=== PATIENT | male | born 1935 | race Caucasian/White ===

== ENCOUNTER → 2016-05-25 | Outpatient (CLI) | payer MEDICARE ==
[~2016-05-25] MED LIST: ASPI-241 PO; ATOR80TA2 PO; FLAX SEED; GREE1CAP PO; HYDR1TAB PO; MTP25TSR PO; OMEG-59 PO; OMEP-10 PO; SERT50TA PO; [UNRECOGNIZED DRUG - OTHER]; vit d3 PO
--- OUTSIDE RECORDS SUMMARY | 2016-05-25 08:36 | XMS REPORT | Continuity of Care Document ---
Author Author [facility] Organization [facility] Address Unknown Phone Unavailable Care Team Providers Care Customer Equipment Engineer Name Role Phone Vinnie Montano III PCP [phone] Source Comments Some departments are not documenting in the electronic medical record. If you do not see the information that you expected, contact Release of Information in the Health Information Management department at [phone] for further assistance in locating additional records.[facility] Active Allergies and Adverse Reactions No Known Allergies Current Medications Prescription Sig. Disp. Refills Start End Date Status Date metoprolol XL (TOPROL XL) Take 50 mg by mouth Active 50 mg tablet daily. omeprazole DR(+) Take 20 mg by mouth Active (PRILOSEC) 20 mg capsule daily. atorvastatin (LIPITOR) 40 Take 40 mg by mouth Active mg tablet daily. aspirin 81 mg chewable Take 81 mg by mouth Active tablet daily. losartan (COZAAR) 50 mg Take 50 mg by mouth Active tablet daily. omega 9-mol-wvv-fish oil Take 2 Caps by mouth Active 300-1,000 mg capsule daily. GREEN TEA LEAF EXTRACT Take by mouth. Active (CARDIO TEA PO) HYLAN G-F 20 (SYNVISC IX) by Intra-articular route. Active Every 6 months FEXOFENADINE HCL (TOÑO Take 60 mg by mouth as Active PO) Needed. escitalopram oxalate Take 10 mg by mouth Active (LEXAPRO) 10 mg tablet daily. cholecalciferol (VITAMIN Take 2,000 Units by mouth Active D-3) 1,000 units tablet daily. ALPRAZolam (XANAX) 0.5 mg Take 0.5 mg by mouth at Active tablet bedtime as needed. donepezil (ARICEPT) 5 mg Take 1 Tab by mouth 90 Tab 3 03/30/19 Active tablet daily. 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 After the last visit he decided to start the donepezil 5 mg. He has done well without GI side effects but does not feel it is "helping" his memory. We discussed the goal in using this medication. I am reluctant to increase it at this time due to pulse rate today of 52. I encouraged him to discuss increasing it with Cardiology when they see him next month. He also had a poor reaction to the increase in the previous Exelon Patch. Will keep the donepezil at 5 mg for now. He was encouraged to keep active physically and mentally and follow closely with his Psychiatrist for management of depression. Plan: Recommend you exercise more frequently. Check with Cardiology or PCP for a recommended exercise program. Stay active mentally, physically, socially. Follow with Psychiatry for aggressive treatment of depression. Continue the Lexapro as prescribed. Continue to use the donepezil (Aricept) 5 mg daily. Take with food in the AM Check out the NIH or Alzheimer's Prevention Clinic at [facility] and Alzheimer's Association website for additional helpful information. We will have our Research Study Coordinators contact you regarding possible participation in studies. Return to the [facility]: September 15, 2016 1:[address] Mathew. Contact our office for any questions or concerns. 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 Pulse 52 03/30/2016 11:23 AM AIDS SOCIAL WORKER Temperature - - Respiratory Rate - - Height 1.702 m (5' 7") 03/30/2016 11:23 AM AIDS SOCIAL WORKER Weight 83.008 kg (183 lb) 03/30/2016 11:23 AM AIDS SOCIAL WORKER Body Mass Index 28.66 03/30/2016 11:23 AM AIDS SOCIAL WORKER Oxygen Saturation 57% 06/24/2015 1:25 PM CDT Plan of Care Date Type Specialty Providers Description 09/15/2016 Appointment Neurology Jonny Mathew MD [address] [facility] [address] [place] [address] [phone] (Fax) 03/21/2017 Appointment Neurology Suzanna Jacobs APRN-NP [address] [place] [address] [phone] (Fax) Health Maintenance Due Date Last Done Comments Physical (Comprehensive) 1942 Exam Pertussis Vaccine 1945 Tetanus Vaccine 1951 Shingles Vaccine 1994 Prevnar/Pneumovax (#1) 1999 Influenza Vaccine 11/06/2015 Results from Last 3 Months Not on file
--- NOTE | 2016-05-25 15:35 | Diagnostic Imaging Report ---
EXAMINATION: PET-CT TECHNIQUE: Serum glucose level at the time of the study is: 135 mg/dL. 13.2 mCi of FDG was administered intravenously followed by obtaining PET images with corresponding noncontrast CT scan images. The CT scan was performed for anatomic correlation and attenuation correction and was not performed according to the diagnostic protocol of the areas covered. The scan was performed from the head to mid thighs. INDICATION: Solitary pulmonary nodule. FINDINGS: There is symmetric FDG uptake seen in the brain. The neck demonstrates increased FDG uptake near the floor of the mouth and right side of the sublingual region. This area is obscured on the localizer CT scan related to beam hardening artifacts from dental fillings. Correlate clinically. This region is commonly involved with inflammatory process. In the chest: There is no suspicious hypermetabolic lesion seen. The localizer CT demonstrates a lobulated nodule in the anterior aspect of the right lower lobe at the hilum level measuring 1.3 cm. No significant hypermetabolic activity is seen in this nodule. This is in favor of a benign process such as a noncalcified granuloma or hamartoma. Followup CT scan of the chest in 3 months is recommended to ensure stability. There is biliary air in the liver which may relate to prior sphincterotomy or other biliary procedure, correlate with patient's history. There is urinary tract excretion seen with no suspicious hypermetabolic mass noted. IMPRESSION: A 1.3 cm non-hypermetabolic lobulated right lower lobe pulmonary nodule is favored to be benign such as a noncalcified granuloma or hamartoma. Three-month followup CT chest is recommended to observe this lesion. Dictated by: Dictated on workstation # [id number]
== END ==
LOC: RAD 08:32
PROVIDERS: ATTEND Internal Medicine
DX: R91.1 Solitary pulmonary nodule (principal)

== ENCOUNTER 2017-06-21 16:39 | Observation (INO) | payer MEDICARE ==
[~2017-06-21] VITALS: Ht 170.2 cm; Wt 94.0 kg
--- OUTSIDE RECORDS SUMMARY | 2017-06-21 16:43 | XMS REPORT | Encounter Summary ---
Author Author [facility] Organization [facility] Address Unknown Phone Unavailable Care Team Providers Care Stock Trader Name Role Phone Benjie Montano MD Unavailable Pia Macdonald DO Unavailable Benjie Montano MD PCP Jonny Mathew MD Unavailable Reason for Visit * Reason Comments Medication Refill Encounter Details Date Type Department Care Team Description 05/16/2017 Refill [facility] Jonny Mathew MD Physicians - Neurology [address] [facility] [address] [place] [address] [place] [address] Social History Tobacco Use Types Packs/Day Years Used Date Former Smoker Cigarettes, Pipe Smokeless Tobacco: Never Used Alcohol Use Drinks/Week oz/Week Comments Yes 0 Standard 0.0 4-5 oz per week drinks or equivalent Sex Assigned at Date Recorded Not on file as of this encounter Functional Status Functional Status Response Date of Assessment Does the patient have a hearing impairment: No 03/30/2016 Does the patient have a visual impairment: Yes 03/30/2016 Does the patient have impaired ambulation: No 03/30/2016 Does the patient have an activity of daily living No 03/30/2016 (ADL) impairment: Does the patient have an instrumental activity of Yes 03/30/2016 daily living (IADL) impairment: Cognitive Status Response Date of Assessment Does the patient have a cognitive impairment: Yes 03/30/2016 as of this encounter Plan of Treatment Not on fileas of this encounter Visit Diagnoses Not on filein this encounter
--- OUTSIDE RECORDS SUMMARY | 2017-06-21 16:43 | XMS REPORT | Continuity of Care Document ---
Author Author [facility] Organization [facility] Address Unknown Phone Unavailable Care Team Providers Care Lead Atg Developer Name Role Phone [employer] Unavailable Unavailable Problems Medications Allergies, Adverse Reactions, Alerts Immunizations Results Vital Signs Encounters Location Location Details Encounter Type Encounter Number Reason For Visit Attending Provider ADM Date DC Date Status Source OUTPATIENT [id number] ANDER MCCOY 04/28/20152015 Active [facility] Brice [place]WAY Active [facility] Procedures Plan of Care Social History Assessment and Plan Family History Advance Directives Functional Status
--- OUTSIDE RECORDS SUMMARY | 2017-06-21 16:43 | XMS REPORT | Clinical Summary ---
Author Author [facility] Organization [facility] Address Unknown Phone Unavailable Care Team Providers Care Garnett Machine Operator Helper Name Role Phone Benjie Montano MD Unavailable Pia Macdonald DO Unavailable Benjie Montano MD PCP Jonny Mathew MD Unavailable Source Comments Some departments are not documenting in the electronic medical record. If you do not see the information that you expected, contact Release of Information in the Health Information Management department at [phone] for further assistance in locating additional records.[facility] Allergies No Known Allergies Current Medications Prescription Sig. [...] 81 mg by mouth Active tablet daily. HYLAN G-F 20 (SYNVISC IX) by Intra-articular route. Active Every 6 months FEXOFENADINE HCL (TOÑO Take 60 mg by mouth as Active PO) Needed. cholecalciferol (VITAMIN Take 2,000 Units by mouth Active D-3) 1,000 units tablet daily. ALPRAZolam (XANAX) 0.5 mg Take 0.25 mg by mouth at Active tablet bedtime as needed. glimepiride (AMARYL) 1 mg Take 1 mg by mouth daily Active tablet with breakfast. donepezil (ARICEPT) 10 mg TAKE ONE TABLET BY MOUTH 90 tablet 4 Active tablet DAILY 18 Active Problems Problem Noted Date Late onset Alzheimer's disease without behavioral disturbance 05/02/2017 Overview: Syndrome of Cognition: Diagnosis changed at the last visit from [facility]CI to AD. He had the Aricept increased to 10 mg daily and has been tolerating it well. Family feels he is stable at this time. Discussed driving safety and medication management. L ast Assessment & Plan: Stable at this time. Recommended he continue current treatment plan. Stay engaged mentally, physically and socially. Plan: Stay active mentally, physically and socially. Redirect and reassure as needed. Drive to familiar areas only. Recommend a GPS associate biological sales should be installed on phone to help track if needed for navigational issues. Follow up with Dr. Mathew as scheduled in September. Cognitive changes 04/15/2015 Last Assessment & Plan: [...] the NIH or Alzheimer's Prevention Clinic at [facility] and Alzheimer's Association website for additional helpful information. We will have our Research Study Coordinators contact you regarding possible participation in studies. Return to the [facility] Care Clinic: September 15, 2016 1:[address] Mathew. Contact our office for any questions or concerns. Encounters Date Type Specialty Care Team Description 05/16/2017 Refill Neurology Jonny Mathew MD 05/02/2017 Office Visit Neurology Suzanna Jacobs, [employer]-BANK COMPLIANCE OFFICER Late onset Alzheimer's disease without behavioral disturbance from Last 3 Months Family History Medical History Relation Name Comments Coronary Artery Disease Brother Coronary Artery Disease Father Dementia Mother Diabetes Mother Stroke Mother Dementia Sister Dementia Sister Relation Name Status Comments Brother Father Mother Sister Sister Social History Tobacco Use Types Packs/Day Years Used Date Former Smoker Cigarettes, Pipe Smokeless Tobacco: Never Used Tobacco Cessation: Counseling Given: No Alcohol Use Drinks/Week oz/Week Comments Yes 0 Standard 0.0 4-5 oz per week drinks or equivalent Sex Assigned at Date Recorded Not on file Last Filed Vital Signs Vital Sign Reading Time Taken Blood Pressure 147/84 05/02/2017 4:16 PM 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 END Pulse 100 05/02/2017 4:16 PM 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 END Temperature - - Respiratory Rate 18 09/15/2016 1:29 PM CDT Oxygen Saturation 57% 06/24/2015 1:25 PM CDT Inhaled Oxygen - - Concentration Weight 89.9 kg (198 lb 3.2 oz) 05/02/2017 4:16 PM 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 END Height 171.5 cm (5' 7.5") 05/02/2017 4:16 PM 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 END Body Mass Index 30.58 05/02/2017 4:16 PM 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 END Plan of Treatment Health Maintenance Due Date Last Done Comments PHYSICAL (COMPREHENSIVE) 1942 EXAM PERTUSSIS VACCINE 1945 TETANUS VACCINE 1951 SHINGLES VACCINE 1994 PREVNAR/PNEUMOVAX (#1) 1999 INFLUENZA VACCINE 12/05/2017 Results Not on filefrom Last 3 Months
--- OUTSIDE RECORDS SUMMARY | 2017-06-21 16:44 | XMS REPORT | Encounter Summary ---
Author Author [facility] Organization [facility] Address Unknown Phone Unavailable Care Team Providers Care Biodiesel Process Control Technician Name Role Phone Benjie Montano MD Unavailable Pia Macdonald DO Unavailable Benjie Montano MD PCP Jonny Mathew MD Unavailable Reason for Visit * Reason Comments Memory Loss Encounter Details Date Type Department Care Team Description 05/02/2017 Office Visit [facility] Suzanna Jacobs APRN-NP Late onset Alzheimer's Physicians - Neurology [address] [facility] disease without [address] [facility] [address] behavioral disturbance [facility] [address] [place] [address] [phone] Social History Tobacco Use Types Packs/Day Years Used Date Former Smoker Cigarettes, Pipe Smokeless Tobacco: Never Used Alcohol Use Drinks/Week oz/Week Comments Yes 0 Standard 0.0 4-5 oz per week drinks or equivalent Sex Assigned at Date Recorded Not on file as of this encounter Last Filed Vital Signs Vital Sign Reading Time Taken Blood Pressure 147/84 05/02/2017 4:16 PM [employer] Pulse 100 05/02/2017 4:16 PM [employer] Temperature - - Respiratory Rate - - Oxygen Saturation - - Inhaled Oxygen - - Concentration Weight 89.9 kg (198 lb 3.2 oz) 05/02/2017 4:16 PM [employer] Height 171.5 cm (5' 7.5") 05/02/2017 4:16 PM [employer] Body Mass Index 30.58 05/02/2017 4:16 PM [employer] in this encounter Functional Status Functional Status Response [...] impairment: Yes 03/30/2016 as of this encounter Instructions * Patient Instructions - Suzanna Jacobs APRN-CORINA - 05/02/2017 4:00 PM [employer] Formatting of this note may be different from the original. Continue the Aricept 10 mg daily. Take with food. Stay active mentally, physically and socially. We may be able to do a telemed visit for the next check up in 6 months. For questions about your visit or medications Call Adele Neri - For questions about scheduling future visits, procedures, etc Call - ; Fax - LUNCH AND LEARN The [facility] invites you to lunch! Spend a lunch hour with us as experts share their knowledge on various topics about healthy aging. 11:30a-12:30p [facility], [address] [place] [id number] May 13, 2017 "Spring Forward" Engaging Activities for Seniors with Dementia June 17, 2017 Cross Train Your Brain July 15, 2017 Aging and Changing -- Does it Impact How You Drive? Lunch is provided and reservations are required. Please RSVP through our website at [email or web address] or by calling Help us fight Alzheimer's Consider volunteering to be a study participant in one of our many research studies. We have a variety of research opportunities available for people with and without memory problems. Our program is dedicated to developing better treatments and ways to prevent memory problems for those without problems. We were designated in 2010 as one of the [facility] [place], joining 31 other elite institutions working together to better treat and diagnose Alzheimer's. You may have signed our consent form allowing us to contact you if you appear to qualify for a study. But, if you are interested in finding out more about our research right now, please call our program at or go to our web site at [email or web address] for more information. Other Recommendations and Information Stay physically and mentally active. -- Exercise daily. Walking as little as 30 minutes several days a week can have significant health benefits. -- Stay socially and mentally active. Read and work crossword puzzles if you enjoy these activities. Maintaining active social contacts is a good way to stimulate your brain too. Eat a balanced diet. Get plenty of whole grains, fruits, and vegetables every day. If you are not hungry at mealtimes, eat snacks at midmorning and in the afternoon. Try drinks such as Boost, Ensure, or Sustacal if you are having trouble keeping your weight up. Driving Deciding to stop driving is very hard for many people. Driving is an important part of one's independence. If you or your family are beginning to have some concerns about your driving, consider a driving evaluation. Driving evaluations can be obtained with a prescription from your Dementia Specialist at : -[facility] ([phone]) or [email or web address] -[facility] ([phone]) or [email or web address] -[facility] Driving and Mobility Services ([phone]) or http:// [email or web address] Sea Captain Our high school social studies teacher Valerio Serrano is available to discuss a wide range of issues. Please call Valerio at [phone]. Issues you might consider discussing include 1) Caregiver stress and burden, especially common associated issues such as depression and anxiety. 2) long-term planning including options for in-home care, day programs, and skilled or assisted living facilities 3) Advanced directives 4) Any other issues related to having or caring for someone with memory problems. Advanced Directives If you have not already done so, make a list of advance directives. Advance directives are instructions to your doctor and family members about what kind of care you want if you become unable to speak or express yourself. Talk to a printed circuit board preassembler about making a will, if you do not already have one. You can also talk to our Sea Captain, Valerio Serrano, to discuss this further ([phone]). Education and Support Alzheimer's Association The Alzheimer's Association is an excellent resource for patients and their families. They offer a variety of services and have weekly support groups for patients and their family members. The [facility] [place] chapter is located in [place] ([address] [place] [address]) and serves the [place] area. Please call them to see how they can help ([phone]) or visit their web site at [email or web address]. [facility] Support Group We offer a monthly support group led by Simi Prado. The support group is the tuesday of every month from 2 to 3:30 at the [facility] in the [facility] ([address]), [address] [place] [address]. [facility] is a program of the [facility] and offers programs to empower and transform the mind, body and spirit of people living with serious and chronic physical illness and for their supporters. Programs are provided on topics such as managing the emotions of living with illness, support for the supporters, resilience, meditation, nutrition, yoga, spirituality, legal issues, communication, sonia chi , cancer support, to name a few. [facility] [place] innovative education and support programs inspire people to take charge of their illness and to live life to its fullest. [facility] is located in [place] at [address], [address], [place] [address]. For more information, call or visit their website at [email or web address] for more information and to see their class schedule. If you would like a tour or want help deciding which programs would best fit your needs please ask for Venus Garcia, [facility] Adult Cellars Supervisor. Contact Us [facility] [address] [facility] [place] [address] [place] [address] To contact us for information on research studies and ongoing trials Main Line: Fax number: For questions about a doctor visit or medications Call Adele Neri - For questions about scheduling future visits, procedures, etc Call - ; Website: [email or web address] Facebook: [email or web address] in this encounter Progress Notes * Suzanna Jacobs, REILLY-MANAGER PROGRAM - 05/02/2017 4:00 PM [employer] Formatting of this note may be different from the original. Date of Service: 05/02/2017 Subjective: Carl Minor is a 82 y.o. male. History is given by his and daughter. History of Present Illness Since last visit on 09/15/16 with Jonny Mathew MD, his memory has been about the same for the most part. Having some occasional navigational issues when driving. She is usually with him when he drives. He needs more reminders to complete tasks around the home. Misplaces items. He tends to hyper focus and obsess a bit more often about things. Forgetful about recent events. He is able to dress and bathe without assistance or reminders. She pays the bills now and helps manage his medications. She has to remind him to check his blood sugars. He reports they have been running about 110- 120. Recent labs: 04/05/16 Vitamin D 39.65 TSH 0.84 HgA1C was 6.3% Vitamin B 12 was 468.00 Review of Systems Constitutional: Negative. HENT: Negative. Respiratory: Negative. Gastrointestinal: Denies incontinence. Genitourinary: Denies incontinence. Musculoskeletal: Negative. Not lately. Some occasional dizziness. Neurological: Negative. Psychiatric/Behavioral: Positive for agitation, confusion, decreased concentration and sleep disturbance (Strange dreams at times. ). Objective: ALPRAZolam (XANAX) 0.5 mg tablet Take 0.25 mg by mouth at bedtime as needed. aspirin 81 mg chewable tablet Take 81 mg by mouth daily. atorvastatin (LIPITOR) 40 mg tablet Take 40 mg by mouth daily. cholecalciferol (VITAMIN D-3) 1,000 units tablet Take 2,000 Units by mouth daily. donepezil (ARICEPT) 10 mg tablet Take 1 Tab by mouth daily. FEXOFENADINE HCL (TOÑO PO) Take 60 mg by mouth as Needed. glimepiride (AMARYL) 1 mg tablet Take 1 mg by mouth daily with breakfast. HYLAN G-F 20 (SYNVISC IX) by Intra-articular route. Every 6 months metoprolol XL (TOPROL XL) 50 mg tablet Take 50 mg by mouth daily. omeprazole DR(+) (PRILOSEC) 20 mg capsule Take 20 mg by mouth daily. Vitals: 05/02/17 1616 BP: 147/84 Pulse: 100 Weight: 89.9 kg (198 lb 3.2 oz) Height: 171.5 cm (67.5") Body mass index is 30.58 kg/m. Physical Exam Neurological and Physical Examination: Blood pressure 147/84, pulse 100, height 171.5 cm (67.5"), weight 89.9 kg (198 lb 3.2 oz). Mental status: He scored 8/10 on MMSE for orientation. He names and repeats well. Cranial nerves: Pupils are equal and reactive to light. Extraocular movements are full. Tongue and palate are midline. Motor: 5/5 strength in the upper and lower extremities with no cogwheel rigidity. Reflexes: Reflexes are 2 in the arms and at the knees. Coordination: No dysmetria on [id number] testing. Gait: Normal casual gait with normal arm swing, stride length and turns. Neurobehavioral Evaluation: Mini-Mental Status Examination: 27/30. (On last visit MMSE was 28/30.) PHQ Depression Scale: PHQ-2 Score: 1 (05/02/2017 4:16 PM). See below for any recommendations. Assessment and Plan: Problem Late onset Alzheimer's disease without behavioral disturbance Syndrome of Cognition: Diagnosis changed at the last visit from MCI to AD. He had the Aricept increased to 10 mg daily and has been tolerating it well. Family feels he is stable at this time. Discussed driving safety and medication management. Late onset Alzheimer's disease without behavioral disturbance Stable at this time. Recommended he continue current treatment plan. Stay engaged mentally, physically and socially. Plan: Stay active mentally, physically and socially. Redirect and reassure as needed. Drive to familiar areas only. Recommend a GPS currency exchange specialist should be installed on phone to help track if needed for navigational issues. Follow up with Dr. Mathew as scheduled in September. Total Visit time: 45 minutes Counseling time: 35 minutes Regarding: Care planning, medications, test results and disease progression in this encounter Miscellaneous Notes * Assessment & Plan Note - Suzanna Jacobs APRN-MANAGER PROGRAM - 05/02/2017 9:26 PM [employer] Associated Problem(s): Late onset Alzheimer's disease without behavioral disturbance Stable at this time. Recommended he continue current treatment plan. Stay engaged mentally, physically and socially. Plan: Stay active mentally, physically and socially. Redirect and reassure as needed. Drive to familiar areas only. Recommend a GPS currency exchange specialist should be installed on phone to help track if needed for navigational issues. Follow up with Dr. Mathew as scheduled in September. in this encounter Plan of Treatment Not on fileas of this encounter Visit Diagnoses Diagnosis Late onset Alzheimer's disease without behavioral disturbance
--- OUTSIDE RECORDS SUMMARY | 2017-06-21 16:44 | XMS REPORT | Continuity of Care Document ---
Author Author [facility] Organization [facility] Address Unknown Phone Unavailable Allergies Active Description Code Type Severity Reaction Onset Reported/Identified Relationship to Patient Clinical Status Yes No Known Drug Allergies [id number] Drug Allergy Unknown N/A 01/03/2012 Medications There is no data. Problems Date Dx Coded Attending Type Code Diagnosis Diagnosed By 01/04/2012 Ot 574.60 05/02/2014 Ot 285.9 05/02/2014 Ot 287.5 05/02/2014 Ot 288.50 05/02/2014 Ot 287.5 05/02/2014 Ot 250.02 05/02/2014 Ot 272.0 05/02/2014 Ot 401.1 05/02/2014 Ot 433.10 05/02/2014 Ot V45.81 05/02/2014 Ot 250.02 05/02/2014 Ot 272.2 05/02/2014 Ot 401.1 05/02/2014 Ot 433.10 05/02/2014 Ot V45.81 05/02/2014 Ot V58.69 05/02/2014 Ot V58.69 05/02/2014 Ot V72.60 05/02/2014 Ot 250.00 05/02/2014 Ot 272.4 05/02/2014 Ot 281.0 05/02/2014 Ot V58.69 05/02/2014 Ot 287.5 05/02/2014 Ot 250.00 05/02/2014 Ot 272.2 05/02/2014 Ot 401.1 05/02/2014 Ot V45.81 05/02/2014 Ot V58.69 05/02/2014 Ot 250.00 05/02/2014 Ot 272.4 05/02/2014 Ot 401.1 05/02/2014 Ot 250.00 05/02/2014 Ot 272.4 05/02/2014 Ot 401.1 05/02/2014 Ot 272.2 05/02/2014 Ot 401.1 05/02/2014 Ot V58.69 05/02/2014 Ot 250.00 05/02/2014 Ot 401.1 05/02/2014 Ot 250.00 05/02/2014 Ot 401.1 05/02/2014 Ot V76.44 05/02/2014 Ot 272.2 05/02/2014 Ot V58.69 05/02/2014 Ot 272.2 05/02/2014 Ot V58.69 05/02/2014 Ot V58.83 05/02/2014 Ot 272.4 05/02/2014 Ot 401.1 07/22/2015 [facility] N[facility]SE STAFF Ot E11.65 TYPE 2 DIABETES MELLITUS WITH HYPERGLYCE 07/22/2015 RAVEN SANDERS Ot E78.5 HYPERLIPIDEMIA, UNSPECIFIED 08/11/2015 RAVEN SANDERSP Ot E11.65 TYPE 2 DIABETES MELLITUS WITH HYPERGLYCE 08/11/2015 [facility] SANDERSP Ot E78.5 HYPERLIPIDEMIA, UNSPECIFIED 01/01/2016 GANGA GAN DO Ot D69.6 THROMBOCYTOPENIA, UNSPECIFIED 01/01/2016 GANGA GAN DO Ot E11.9 TYPE 2 DIABETES MELLITUS WITHOUT COMPLIC 01/20/2016 GANGA GAN DO Ot D69.6 THROMBOCYTOPENIA, UNSPECIFIED 01/20/2016 ELVIA LOPEZ, GANGA [place] Ot E11.9 TYPE 2 DIABETES MELLITUS WITHOUT COMPLIC 05/25/2016 GANGA GAN DO Ot R91.1 SOLITARY PULMONARY NODULE 05/26/2016 GANGA GAN DO Ot R91.1 SOLITARY PULMONARY NODULE 07/21/2016 GANGA GAN DO Ot R91.1 SOLITARY PULMONARY NODULE 07/22/2016 GANGA GAN DO Ot R91.1 SOLITARY PULMONARY NODULE Procedures There is no data. Results Test Result Range Complete blood count (CBC) with automated white blood cell (WBC) differential - 12/31/15 14:35 Blood leukocytes automated count (number/volume) 5.2 10*3/uL 4.3-11.0 Blood erythrocytes automated count (number/volume) 4.02 10*6/uL 4.35-5.85 Venous blood hemoglobin measurement (mass/volume) 13.1 g/dL 13.3-17.7 Blood hematocrit (volume fraction) 38 % 40-54 Automated erythrocyte mean corpuscular volume 94 [foz_us] 80-99 Automated erythrocyte mean corpuscular hemoglobin (mass per erythrocyte) 33 pg 25-34 Automated erythrocyte mean corpuscular hemoglobin concentration measurement ( mass/volume) 35 g/dL 32-36 Automated erythrocyte distribution width ratio 12.4 % 10.0-14.5 Automated blood platelet count (count/volume) 107 10*3/uL 130-400 Automated blood platelet mean volume measurement 9.1 [foz_us] 7.4-10.4 Automated blood neutrophils/100 leukocytes 70 % 42-75 Automated blood lymphocytes/100 leukocytes 22 % 12-44 Blood monocytes/100 leukocytes 7 % 0-12 Automated blood eosinophils/100 leukocytes 1 % 0-10 Automated blood basophils/100 leukocytes 0 % 0-10 Blood neutrophils automated count (number/volume) 3.6 10*3 1.8-7.8 Blood lymphocytes automated count (number/volume) 1.1 10*3 1.0-4.0 Blood monocytes automated count (number/volume) 0.4 10*3 0.0-1.0 Automated eosinophil count 0.1 10*3/uL 0.0-0.3 Automated blood basophil count (count/volume) 0.0 10*3/uL 0.0-0.1 Hemoglobin A1c - 12/31/15 14:35 Hemoglobin A1c 6.0 % 4.5-6.2 Encounters ACCT No. Visit Date/Time Discharge Status Pt. Type Provider Facility Loc./Unit Complaint [id number] 05/25/2016 08:32:00 05/25/2016 23:59:59 CLS Outpatient GANGA GAN DO [facility] RAD PULMONARY NODULES [id number] 12/31/2015 14:22:00 12/31/2015 23:59:59 CLS Outpatient GANGA GNA DO [facility] LAB E11.9 THROMBOCYTOPENIA [id number] 07/19/2015 10:56:00 07/19/2015 23:59:59 CLS Outpatient [facility] LAB [id number] 07/02/2013 12:21:00 07/02/2013 23:59:59 CLS Outpatient [id number] 04/10/2013 10:08:00 04/10/2013 23:59:59 CLS Outpatient [id number] 11/02/2012 11:11:00 11/02/2012 23:59:59 CLS Outpatient [id number] 06/30/2012 10:40:00 06/30/2012 23:59:59 CLS Outpatient [id number] 05/02/2014 09:52:00 Document Registration [id number] 01/03/2012 14:03:00 Document Registration [id number] 12/27/2011 10:45:00 Document Registration [id number] 06/25/2011 09:07:00 Document Registration [id number] 06/25/2011 09:00:00 Document Registration [id number] 12/14/2010 11:25:00 Document Registration [id number] 12/07/2010 10:35:00 Document Registration [id number] 06/15/2010 11:11:00 Document Registration [id number] 06/11/2010 10:16:00 Document Registration [id number] 03/26/2010 13:35:00 Document Registration [id number] 12/11/2009 10:18:00 Document Registration [id number] 10/29/2009 15:00:00 Document Registration [id number] 09/17/2009 14:28:00 Document Registration [id number] 12/12/2008 09:48:00 Document Registration
[2017-06-21] MEDS ORDERED: NS IV 1000 ML 1,000 ML IV ONE (16:58)
[2017-06-21] MEDS ORDERED: LOSA50TA36 PO (17:02)
[2017-06-21] MEDS ORDERED: GLIM1TAB PO (17:02)
[2017-06-21] MEDS ORDERED: DONE10TA41 PO (17:02)
[2017-06-21 17:29] LABS: BASOPHILS % (AUTO) 0 % (0-10); EOSINOPHILS # (AUTO) 0.1 10^3/uL (0.0-0.3); EOSINOPHILS % (AUTO) 2 % (0-10); HEMATOCRIT 40 % (40-54); HEMOGLOBIN 13.7 G/DL (13.3-17.7); LYMPHOCYTES # (AUTO) 1.1 X 10^3 (1.0-4.0); LYMPHOCYTES % (AUTO) 18 % (12-44); MEAN CORPUSCULAR HEMOGLOBIN 31 PG (25-34); MEAN CORPUSCULAR HGB CONC 34 G/DL (32-36); MEAN CORPUSCULAR VOLUME 91 FL (80-99); MONOCYTES # (AUTO) 0.6 X 10^3 (0.0-1.0); MONOCYTES % (AUTO) 9 % (0-12); NEUTROPHILS # (AUTO) 4.2 X 10^3 (1.8-7.8); NEUTROPHILS % (AUTO) 70 % (42-75); PLATELET COUNT 119 10^3/uL (130-400); RED BLOOD COUNT 4.41 10^6/uL (4.35-5.85); RED CELL DISTRIBUTION WIDTH 13.6 % (10.0-14.5)
[2017-06-21 17:57] LABS: ALANINE AMINOTRANSFERASE 24 U/L (0-55); ALBUMIN 4.4 GM/DL (3.2-4.5); ALKALINE PHOSPHATASE 69 U/L (40-136); BILIRUBIN,TOTAL 0.9 MG/DL (0.1-1.0); BUN/CREATININE RATIO 18; CALCIUM 9.9 MG/DL (8.5-10.1); CARBON DIOXIDE 21 MMOL/L (21-32); CHLORIDE 106 MMOL/L (98-107); CREATININE SERUM 1.42 MG/DL (0.60-1.30); GFR ESTIMATED 48; GLUCOSE 179 MG/DL (70-105); POTASSIUM 3.9 MMOL/L (3.6-5.0); SALICYLATE < 5.0 MG/DL (5.0-20.0); SODIUM 137 MMOL/L (135-145); TOTAL PROTEIN 6.7 GM/DL (6.4-8.2)
[2017-06-21 17:58] LABS: ACETAMINOPHEN < 10 UG/ML (10-30)
--- NOTE | 2017-06-21 18:28 | ED General ---
General Chief Complaint: General Problems/Pain Stated Complaint: ACCIDENTAL O.D. Nursing Triage Note: TO ROOM WHO REPORTS HAS EARLY ONSET OF ALZHEIMER'S AND TOOK TUE- TUESDAY PILLS. PATINT ALERT ON ADMIT Nursing Sepsis Screen: No Definite Risk Source of Information: Patient, Family Exam Limitations: No Limitations History of Present Illness Date Seen by Provider: Jun 21, 2017 Time Seen by Provider: 16:50 Initial Comments This 82-year-old gentleman presents to the emergency room for assessment after accidentally taking 3 doses of his medications. He took losartan 50 mg 3, Aricept 10 mg 3, glimepiride 1 mg 3, and sertraline 50 mg 3. Ingestion time was around 40 minutes prior to arrival. Patient denies any symptoms. He is noted to have a borderline blood pressure with systolic pressures in the 90s. Allergies and Home Medications Allergies Coded Allergies: No Known Drug Allergies (Unverified , 01/03/12) Home Medications Aspirin 325 Mg Tablet.dr, 325 MG PO DAILY, (Reported) Atorvastatin Calcium 80 Mg Tablet, 40 MG PO DAILY, (Reported) Green Tea [place] Extract 1 Each Capsule, 2 EACH PO DAILY, (Reported) Hydrocodone Bit/Acetaminophen 1 Each Tablet, 1-2 EACH PO Q4HR PRN, (Reported) every 4-6 hrs. as needed for pain Metoprolol Succinate 25 Mg Tab.sr.24h, 25 MG PO DAILY, (Reported) Lantry-3 Fatty Acids/Fish Oil 1 Each Capsule, 2 EACH PO DAILY, (Reported) Omeprazole 20 Mg Capsule.dr, 20 MG PO DAILY, (Reported) Sertraline Hcl 50 Mg Tablet, 50 MG PO DAILY, (Reported) [Cardio Whey] , 1 DAILY, (Reported) 1 SCOOP [Flax Seed] , DAILY, (Reported) 1 TBSP DAILY [vit d3] , 2,000 UNIT PO DAILY, (Reported) Patient Home Medication List Home Medication List Reviewed: Yes Review of Systems Constitutional: no symptoms reported EENTM: no symptoms reported Respiratory: no symptoms reported Cardiovascular: see HPI Gastrointestinal: no symptoms reported Genitourinary: no symptoms reported Musculoskeletal: no symptoms reported Skin: no symptoms reported Psychiatric/Neurological: See HPI Hematologic/Lymphatic: No Symptoms Reported Immunological/Allergic: no symptoms reported Past Cuuvihm-Wavakf-Hulflp Hx Patient Social History Alcohol Use: Denies Use Recreational Drug Use: No Smoking Status: Never a Smoker Recent Foreign Travel: No Contact w/Someone Who Travel: No Recent Infectious Disease Expo: No Recent Hopitalizations: Yes Immunizations Up To Date Date of Pneumonia Vaccine: Dec 05, 2008 Date of Influenza Vaccine: Dec 28, 2011 Past Medical History Surgeries: Yes (squamos cell removal 2001, renal stent 02/11/07, quadruple bypass 08/31/07) Respiratory: Yes Cardiac: Yes (CABG) Neurological: Yes Dementia Gastrointestinal: Yes (admitted abd pain 01-03-12) Musculoskeletal: Yes (knee pain knees injected 04-02-10 07-06-10 01-13-11) Endocrine: Yes Diabetes, Non-Insulin dep HEENT: No Cancer: Yes Skin Psychosocial: Yes Integumentary: No Physical Exam Vital Signs Vital Signs - First Documented 06/21/17 16:47 Temp 99.0 Pulse 84 Resp 18 B/P (MAP) 94/50 (65) Capillary Refill : Less Than 3 Seconds General Appearance: No Apparent Distress, WD/WN HEENT: PERRL/EOMI, Normal ENT Inspection Neck: Normal Inspection Respiratory: Lungs Clear, Normal Breath Sounds, No Accessory Muscle Use, No Respiratory Distress Cardiovascular: Regular Rate, Rhythm, No Edema, No Murmur Gastrointestinal: Normal Bowel Sounds, Non Tender, Soft Extremity: Normal Capillary Refill, Normal Inspection Neurologic/Psychiatric: Alert, Oriented x3, No Motor/Sensory Deficits, Normal Mood/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, 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 Norm as Tested Skin: Normal Color, Warm/Dry Progress/Results/Core Measures Suspected Sepsis Recent Fever Within 48 Hours: No Infection Criteria Present: None New/Unexplained Altered Menta: No Sepsis Screen: No Definite Risk SIRS Temperature:99.0 Pulse: 84 Respiratory Rate: 18 Laboratory Tests 06/21/17 17:20: White Blood Count 6.0 Blood Pressure 94 /50 Mean: 65 Laboratory Tests 06/21/17 17:20: Creatinine 1.42H, Platelet Count 119L, Total Bilirubin 0.9 Results/Orders Lab Results Laboratory Tests Test 06/21/17 17:20 Range/Units White Blood Count 6.0 4.3-11.0 10^3/uL Red Blood Count 4.41 4.35-5.85 10^6/uL Hemoglobin 13.7 13.3-17.7 G/DL Hematocrit 40 40-54 % Mean Corpuscular Volume 91 80-99 FL Mean Corpuscular Hemoglobin 31 25-34 PG Mean Corpuscular Hemoglobin Concent 34 32-36 G/DL Red Cell Distribution Width 13.6 10.0-14.5 % Platelet Count 119 L 130-400 10^3/uL Mean Platelet Volume 10.0 7.4-10.4 FL Neutrophils (%) (Auto) 70 42-75 % Lymphocytes (%) (Auto) 18 12-44 % Monocytes (%) (Auto) 9 0-12 % Eosinophils (%) (Auto) 2 0-10 % Basophils (%) (Auto) 0 0-10 % Neutrophils # (Auto) 4.2 1.8-7.8 X 10^3 Lymphocytes # (Auto) 1.1 1.0-4.0 X 10^3 Monocytes # (Auto) 0.6 0.0-1.0 X 10^3 Eosinophils # (Auto) 0.1 0.0-0.3 10^3/uL Basophils # (Auto) 0.0 0.0-0.1 10^3/uL Sodium Level 137 135-145 MMOL/L Potassium Level 3.9 3.6-5.0 MMOL/L Chloride Level 106 98-107 MMOL/L Carbon Dioxide Level 21 21-32 MMOL/L Anion Gap 10 5-14 MMOL/L Blood Urea Nitrogen 26 H 7-18 MG/DL Creatinine 1.42 H 0.60-1.30 MG/DL Estimat Glomerular Filtration Rate 48 BUN/Creatinine Ratio 18 Glucose Level 179 H 70-105 MG/DL Calcium Level 9.9 8.5-10.1 MG/DL Total Bilirubin 0.9 0.1-1.0 MG/DL Aspartate Amino Transf (AST/SGOT) 18 5-34 U/L Alanine Aminotransferase (ALT/SGPT) 24 0-55 U/L Alkaline Phosphatase 69 40-136 U/L Total Protein 6.7 6.4-8.2 GM/DL Albumin 4.4 3.2-4.5 GM/DL Salicylates Level < 5.0 L 5.0-20.0 MG/DL Acetaminophen Level < 10 L 10-30 UG/ML My Orders Orders - KYM AGUILAR MD Acetaminophen (06/21/17 16:58) Cbc With Automated Diff (06/21/17 16:58) Comprehensive Metabolic Panel (06/21/17 16:58) Salicylate (06/21/17 16:58) Saline Lock/Iv-Start (06/21/17 16:58) Monitor-Rhythm Ecg Trace Only (06/21/17 16:58) Ns Iv 1000 Ml (Sodium Chloride 0.9%) (06/21/17 16:58) Medications Given in ED Current Medications Medications Dose Ordered Sig/Ta Route Start Time Stop Time Status Last Admin Dose Admin Sodium Chloride 1,000 ml @ 0 mls/hr Q0M ONCE IV 06/21/17 16:58 06/21/17 17:00 DC 06/21/17 17:26 1,000 MLS/HR Vital Signs/I&O 06/21/17 16:47 Temp 99.0 Pulse 84 Resp 18 B/P (MAP) 94/50 (65) Capillary Refill : Less Than 3 Seconds Blood Pressure Mean: 65 Progress Note : Progress Note Patient was seen and examined. Basic labs were drawn. Blood sugar was still elevated at 179 despite overdose of glimepiride. Blood pressure was marginal with systolic pressures in the 90s. A liter of IV fluids was administered. Dr. Kirkpatrick presented to the emergency room to assess the patient. Poison control was contacted and recommendations reviewed. Protocol for glimepiride toxicity was faxed to the ER and sent upstairs with the patient. Departure Communication (Admissions) Time/Spoke to Admitting Phy: 17:15 Dr. Kirkpatrick Impression Primary Impression: Accidental medication overdose Qualified Codes: T50.901A - Poisoning by unspecified drugs, medicaments and biological substances, accidental (unintentional), initial encounter Disposition: ADMITTED INPATIENT Condition: Improved Admissions Decision to Admit Reason: Admit from ER (General) Decision to Admit/Date: Jun 21, 2017 Time/Decision to Admit Time: 17:00 Departure-Patient Inst. Referrals: GANGA GAN DO (PCP/Family) Primary Care Physician KYM AGUILAR MD Jun 21, 2017 18:28
[2017-06-21] MEDS ORDERED: GLUCAGON EMERGENCY 1 MG/KIT IM PRN (19:15)
[2017-06-21] MEDS ORDERED: CATHETER FLUSH 10 ML SYR IV PRN (19:15)
[2017-06-21] MEDS ORDERED: DEXTROSE 10% IV SOLUTION 1,000 ML IV PRN (19:15)
[2017-06-21] MEDS ORDERED: DEXTROSE 50% 50 ML (IMS) SYR IV PRN (19:15)
[2017-06-21] MEDS ORDERED: ONDANSETRON 4 MG/2 ML (SDV) Z0FRAN IV PRN (19:15)
[2017-06-21 20:00] VITALS: BP 111/61
[2017-06-21] MEDS: D5 NS 1000 ML IV SOLUTION 1,000 ML IV SCH (20:26)
[2017-06-21 21:00] VITALS: BP 117/68
[2017-06-21 22:00] VITALS: BP 115/54
[2017-06-21 23:00] VITALS: BP 125/62
[2017-06-22] VITALS (10 sets, daily range): BP systolic 118–148; BP diastolic 43–99
[2017-06-22 04:21] LABS: BASOPHILS % (AUTO) 0 % (0-10); EOSINOPHILS # (AUTO) 0.1 10^3/uL (0.0-0.3); EOSINOPHILS % (AUTO) 2 % (0-10); HEMATOCRIT 36 % (40-54); LYMPHOCYTES # (AUTO) 0.7 X 10^3 (1.0-4.0); LYMPHOCYTES % (AUTO) 17 % (12-44); MEAN CORPUSCULAR HEMOGLOBIN 31 PG (25-34); MEAN CORPUSCULAR HGB CONC 34 G/DL (32-36); MEAN CORPUSCULAR VOLUME 92 FL (80-99); MEAN PLATELET VOLUME 9.6 FL (7.4-10.4); MONOCYTES # (AUTO) 0.5 X 10^3 (0.0-1.0); MONOCYTES % (AUTO) 11 % (0-12); NEUTROPHILS # (AUTO) 2.9 X 10^3 (1.8-7.8); NEUTROPHILS % (AUTO) 69 % (42-75); PLATELET COUNT 106 10^3/uL (130-400); RED BLOOD COUNT 3.88 10^6/uL (4.35-5.85); RED CELL DISTRIBUTION WIDTH 13.7 % (10.0-14.5); WHITE BLOOD COUNT 4.2 10^3/uL (4.3-11.0)
[2017-06-22 04:48] LABS: CALCIUM 9.1 MG/DL (8.5-10.1); CREATININE SERUM 1.21 MG/DL (0.60-1.30); POTASSIUM 4.1 MMOL/L (3.6-5.0)
[2017-06-22] MEDS: D5 NS 1000 ML IV SOLUTION 1,000 ML IV SCH (05:06)
[2017-06-22] MEDS ORDERED: LIDOCAINE 2% VISCOUS 15 ML UDC ONE (07:23)
[2017-06-22] MEDS ORDERED: OMEP20CA12 PO (09:08)
[2017-06-22] MEDS ORDERED: SERT50TA9 PO (09:08)
[2017-06-22] MEDS ORDERED: ALPR0.254 PO (09:08)
[2017-06-22] MEDS ORDERED: CHOL20003 PO (09:08)
[2017-06-22] MEDS ORDERED: ATOR40TA70 PO (09:08)
[2017-06-22] MEDS ORDERED: ASPI-983 PO (09:17)
[2017-06-22] MEDS ORDERED: FEXO-14 PO (09:18)
[2017-06-22] MEDS ORDERED: ACET-2267 PO (09:18)
[2017-06-22] MEDS ORDERED: [UNRECOGNIZED DRUG - REMARK] INJ (09:19)
--- NOTE | 2017-06-22 11:46 | Short Stay Summary-Hospitalist ---
History of Present Illness HPI/Chief Complaint Pt is an 82yoCM with a PMH of dementia, depression, HTN, and NIDDMII who presented to the ER after an accidental overdose of his medications. He took losartan 50 mg 3, Aricept 10 mg 3, glimepiride 1 mg 3, and sertraline 50 mg 3 around 4pm on 06/21. He denied any symptoms but on arrival to the ER his BP was 90/50. Poison control was contacted from the ER and they recommended observation for 24 hours for hypoglycemia. This morning he dies any complaints again this morning and his blood sugar was stable overnight on D5. He reports that he feels well otherwise. Source: patient, family Date Seen 06/22/17 Time Seen by Provider: 08:30 Attending Physician Ela Kirkpatrick MD PCP Benjie Montano DO Referring Physician Date of Admission Jun 21, 2017 at 6:07 pm Home Medications & Allergies Home Medications Reviewed patient Home Medication Reconciliation performed by pharmacy medication reconciliations digital technician and/or nursing. Patients Allergies have been reviewed. Allergies Allergies Coded Allergies No Known Drug Allergies (Ettvdgerhy97/29/12) Past Vuwgodi-Nimojm-Jorkgk Hx Past Med/Social Hx: Reviewed and Corrections made Patient Social History Marrital Status: Alcohol Use: Denies Use Recreational Drug Use: No Smoking Status: Former Smoker Former Smoker, Quit: July 28, 1977 Type Used: Cigarettes, Pipe Physical Abuse Screen: No Sexual Abuse: No Recent Foreign Travel: No Contact w/other who traveled: No Recent Hopitalizations: Yes Recent Infectious Disease Expo: No Immunizations Up To Date Date of Pneumonia Vaccine: Dec 05, 2008 Date of Influenza Vaccine: Dec 28, 2011 Past Medical History Currently Using CPAP: Yes Currently Using BIPAP: No Neurological: Dementia Musculoskeletal: Arthritis Endocrine: Diabetes, Non-Insulin dep Are Your Blood Sugars Over 250: No Cancer: Skin What Type of Treatment Did You: Surgical Intervention Psychosocial: Depression Family History Reviewed Nursing Family Hx No Pertinent Family Hx Review of Systems Constitutional: No chills, No fever EENTM: No blurred vision, No double vision, No nose congestion, No throat pain Respiratory: No cough, No dyspnea on exertion, No short of breath Cardiovascular: No chest pain, No edema, No palpitations Gastrointestinal: No abdominal pain, No constipation, No diarrhea, No nausea, No vomiting Genitourinary: No dysuria, No frequency Musculoskeletal: No joint pain, No muscle pain Skin: No lesions, No rash Psychiatric/Neurological: Denies Headache, Denies Numbness, Denies Tingling Physical Exam Physical Exam Vital Signs Vital Signs - First Documented 06/21/17 06/21/17 16:47 18:28 Temp 99.0 Pulse 84 Resp 18 B/P (MAP) 94/50 (65) Pulse Ox 95 O2 Delivery Room Air Capillary Refill : Less Than 3 Seconds General Appearance: No Apparent Distress, WD/WN HEENT: PERRL/EOMI, Moist Mucous Membranes Neck: Non Tender, Supple Respiratory: Lungs Clear, No Respiratory Distress Cardiovascular: Regular Rate, Rhythm, No Murmur Gastrointestinal: Normal Bowel Sounds, Non Tender, Soft Extremity: Normal Capillary Refill, No Calf Tenderness Neurologic/Psychiatric: Alert, Oriented x3, Normal Mood/Affect Skin: Normal Color, Warm/Dry Results Results/Procedures Labs Laboratory Tests 06/21/17 17:20 06/22/17 03:45 Patient resulted labs reviewed. Short Stay Diagnosis Discharge Diagnosis-Short Stay Admission Diagnosis Accidental overdose Final Discharge Diagnosis Accidental overdose Conclusion Plan See problems Diagnosis/Problems Diagnosis/Problems (1) Accidental medication overdose Status: Acute Assessment & Plan: Monitored overnight and BP stable BS normal/high overnight on D5 Will stop D5 and monitor hourly I discussed with Poison Control who recommended monitoring for 24 hours and if BS till stable at 4pm and off dextrose would be safe for discharge Qualifiers: Qualified Codes: T50.901A - Poisoning by unspecified drugs, medicaments and biological substances, accidental (unintentional), initial encounter (2) Non-insulin dependent type 2 diabetes mellitus Assessment & Plan: Resume home medications tomorrow (3) Essential (primary) hypertension Assessment & Plan: Resume home medications tomorrow Clinical Quality Measures DVT/VTE Risk/Contraindication: Risk Factor Score Per Nursin RFS Level Per Nursing on Admit: 2=Moderate ELA KIRKPATRICK MD Jun 22, 2017 11:46 am
--- NOTE | 2017-06-22 14:01 | Discharge Inst-Simple/Standard ---
Discharge Inst-Standard Patient Instructions/Follow Up Plan of Care/Instructions/FU: Please resume your normal medications tomorrow. If your symptoms return or worsen please seek evaluation with your PCP or in the ER if it is an emergency. Activity as Tolerated: Yes Discharge Diet: ADA Diet Return to The Hospital For: Lightheadedness, hypoglycemia, low blood pressures, confusion, if you feel you are getting worse. Planned Outpatient Orders/Ref. Pneu Vac Indicated: Yes ELA PARDO MD Jun 22, 2017 2:01 pm
== END 2017-06-22 16:30 | disposition home or self-care (01) ==
LOC: EDUNIT# 16:39 → ER 16:40 → ICU 18:07 → UNDOADMOB 18:07 → ICU 18:56 → UNDODISOB 06-22 17:54
PROVIDERS: ADMIT Family Medicine; ATTEND Family Medicine
DX: T44.5X1A Poisoning by predominantly beta-adrenoreceptor agonists, accidental (unintentional), initial encounter (principal); T50.6X1A Poisoning by antidotes and chelating agents, accidental (unintentional), initial encounter; T38.3X1A Poisoning by insulin and oral hypoglycemic [antidiabetic] drugs, accidental (unintentional), initial encounter; T43.221A Poisoning by selective serotonin reuptake inhibitors, accidental (unintentional), initial encounter; E11.9 Type 2 diabetes mellitus without complications; I10 Essential (primary) hypertension; F32.9 Major depressive disorder, single episode, unspecified; G30.0 Alzheimer's disease with early onset; F02.80 Dementia in other diseases classified elsewhere, unspecified severity, without behavioral disturbance, psychotic disturbance, mood disturbance, and anxiety; Z79.899 Other long term (current) drug therapy
CPT/HCPCS: 36415; 80048; 80053; 80329; 82962; 85025; 93041; 96360

== ENCOUNTER 2017-12-02 19:04 | Emergency (ER) | payer MEDICARE ==
[~2017-12-02] VITALS: Ht 175.3 cm; Wt 81.6 kg
[~2017-12-02 19:04] MED LIST changes: +ACET-2267 PO; +ALPR0.254 PO; +ASPI-983 PO; +ATOR40TA70 PO; +CHOL20003 PO; +DONE10TA41 PO; +FEXO-14 PO; +GLIM1TAB PO; +LOSA50TA7 PO; +OMEP20CA12 PO; +SERT50TA9 PO; +[UNRECOGNIZED DRUG - REMARK] INJ
[2017-12-02] MEDS ORDERED: LACTATED RINGERS 1,000 ML IV ONE (19:07)
--- OUTSIDE RECORDS SUMMARY | 2017-12-02 19:09 | XMS REPORT | Encounter Summary ---
Author Author [facility] Organization [facility] Address Unknown Phone Unavailable Care Team Providers Care Land Department Head Name Role Phone Benjie Montano MD Unavailable Pia Macdonald DO Unavailable Benjie Montano MD PCP Jonny Mathew MD Unavailable Reason for Visit * Reason Comments Memory Loss Encounter Details Date Type Department Care Team Description 09/21/2017 Office Visit [facility] Jonny Mathew MD Late onset Alzheimer's Physicians - Neurology [address] disease without 3rd fl [place] [address] [place] [address] behavioral disturbance [address] [place] [address] (Primary Dx) [place] [address] Social History Tobacco Use Types Packs/Day Years Used Date Former Smoker Cigarettes, Pipe Smokeless Tobacco: Never Used Tobacco Cessation: Counseling Given: No Alcohol Use Drinks/Week oz/Week Comments Yes 0 Standard 0.0 4-5 oz per week drinks or equivalent Sex Assigned at Date Recorded Not on file as of this encounter Last Filed Vital Signs Vital Sign Reading Time Taken Blood Pressure 128/73 09/21/2017 1:35 PM CDT Pulse 86 09/21/2017 1:35 PM CDT Temperature - - Respiratory Rate 20 09/21/2017 1:35 PM CDT Oxygen Saturation - - Inhaled Oxygen - - Concentration Weight 89.8 kg (198 lb) 09/21/2017 1:35 PM CDT Height 170.2 cm (5' 7") 09/21/2017 1:35 PM CDT Body Mass Index 31.01 09/21/2017 1:35 PM CDT in this encounter Functional Status Functional Status Response Date of Assessment Does the patient have a hearing impairment: Yes 09/21/2017 Does the patient have a visual impairment: Yes 09/21/2017 Does the patient have impaired ambulation: No 09/21/2017 Does the patient have an activity of daily living No 09/21/2017 (ADL) impairment: Does the patient have an instrumental activity of No 09/21/2017 daily living (IADL) impairment: Cognitive Status Response Date of Assessment Does the patient have a cognitive impairment: Yes 09/21/2017 as of this encounter Instructions * Patient Instructions - Jonny Mathew MD - 09/21/2017 1:30 PM CDT I am starting you on a medicine called memantine (namenda). For the next month, take one pill when you wake up in the morning. After one month, then also take a pill at dinner time. in this encounter Progress Notes * Jonny Mathew MD - 09/21/2017 1:30 PM CDT Formatting of this note may be different from the original. Date of Service: 09/21/2017 Subjective: Carl Minor is a 82 y.o. male. History of Present Illness Carl is a 82 y.o. followed for issues of cognition. History today obtained from: patient and (Debby) Current Diagnosis: AD Last Seen: by me in 09/20 COGNITION/BEHAVIOR-FOCUSED HISTORY Interval Cognition/Behavioral Focused History: Debby says there has been some decline over the past year. STM deficits are more pronounced. He sleeps a lot, until 1 in the afternoon sometimes. He is exercising, and does crossword puzzles daily. No outside yard activities. 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 Sometimes he is unsteady on his feet. Specific Neuropsychiatric/Behavioral Symptoms and PHQ2: PHQ-2 Score: 1 (05/02/2017 4:16 PM) Other Interval Details: FUNCTIONAL ASSESSMENT Independent in IADLs: No Independent in BADLs: Yes Reduced Decision Making Capacity: Yes Home or Driving Safety Issues: No; still does limited driving. INTERVAL EVALUATIONS Labs: Per O2 Imaging: Per O2 Neuropsych Testing: Other Tests: OTHER INTERVAL INFORMATION Relevant Interval Medical History: Basal cell resected Relevant/High Risk Cognition-Affecting Medications and Interval Med Changes: toprol, sertraline 50 mg, donepezil 10 mg, glimeprimade Relevant Interval Family History: No changes Relevant Interval Social History: No changes Relevant Interval ROS: Review of Systems Constitutional: Negative for chills. HENT: Negative for facial swelling. Eyes: Negative for discharge. Respiratory: Negative for choking. Cardiovascular: Negative for palpitations. Gastrointestinal: Negative for vomiting. Genitourinary: Negative for flank pain. Skin: Negative for wound. Neurological: Negative for seizures. Hematological: Negative for adenopathy. Psychiatric/Behavioral: Negative for self-injury. Objective: ALPRAZolam (XANAX) 0.5 mg tablet Take 0.25 mg by mouth at bedtime as needed. aspirin 81 mg chewable tablet Take 81 mg by mouth daily. atorvastatin (LIPITOR) 40 mg tablet Take 40 mg by mouth daily. cholecalciferol (VITAMIN D-3) 1,000 units tablet Take 2,000 Units by mouth daily. donepezil (ARICEPT) 10 mg tablet TAKE ONE TABLET BY MOUTH DAILY FEXOFENADINE HCL (TOÑO PO) Take 60 mg by mouth as Needed. glimepiride (AMARYL) 1 mg tablet Take 1 mg by mouth daily with breakfast. HYLAN G-F 20 (SYNVISC IX) by Intra-articular route. Every 6 months metoprolol XL (TOPROL XL) 50 mg tablet Take 50 mg by mouth daily. omeprazole DR(+) (PRILOSEC) 20 mg capsule Take 20 mg by mouth daily. Vitals: 09/21/17 1335 BP: 128/73 Pulse: 86 Resp: 20 Weight: 89.8 kg (198 lb) Height: 170.2 cm (67") Body mass index is 31.01 kg/m. Physical Exam COGNITION-FOCUSED EXAM (INCLUDES STANDARDIZED INSTRUMENTS) Overall state: NAD MMSE AND ORIENTATION Person: Yes Place: No Can't name place Time: No 2017August 19summer Time Questions: 3/5 Place questions: 4/5 Repeat 3 words: 3/3 Name and repeat 3/3 WORLD backwards (or equivalent task): 5/5 3 step command: 3/3 Recall 3 words: 1/3 Read, draw, write a sentence: /3 TOTAL: (was last year) Memory ECR first pass encodin/4 3/4 4/4 4/ ECR delayed free recall: 03/22 (was 0 last year) ECR delayed cued recall: 07/20 (was 02/19 last year) Riggs Figure: Excellent direct copy. Moderate forgetting of details after 15 min delay. Visuospatial Clock drawin/7 (was 09/10 last year) Language Animal naming number: 8 (was 13 last year) Animal naming perserverations: 1 Confrontational Namin/16 Other Cognitive Exam Affect: Full Thought content: A little restricted Thought processes: No tpsychotic Gross language comprehension and expression skills: Good gross skills Other Cognitive Testing: Non-Cognitive Exam Findings Gait: reasonably good from a neuro perspective; only very slightly widened base , good stride length,m approximates tandem, absent ROM Other: Assessment and Plan: FORMULATION Syndrome of: cognition Dementia Syndrome Present: Yes , progressing Dementia Stage (if Present): Mild Diagnosis: AD Other Diagnostic Considerations: CARE PLAN Diagnostic tests: No further tests at this time Treatment Plan: Continue donepezil and sertraline. Given progression over past year, will add namenda. Specific Treatments for Neuropsychiatric Symptoms Initiated/Continued: Yes Sertraline Referral to Specific Community Resources Needed: No Advanced Care/Palliative Planning Pertinent or Specifically Requested: No Access to Qualified Caregiver (with adequate knowledge, support, willingness): Yes Care Plan Shared with Patient/Caregiver: Yes Follow Up: ~6 months with MANAGER GAS, 1 year with me Total Visit Time: Time spent in face to face counseling and coordination of care: Topics discussed: MEDICAL DECISION MAKING Medical decision making: moderate or severe in this encounter Plan of Treatment Not on fileas of this encounter Visit Diagnoses Diagnosis Late onset Alzheimer's disease without behavioral disturbance - Primary
--- OUTSIDE RECORDS SUMMARY | 2017-12-02 19:09 | XMS REPORT | Clinical Summary ---
Author Author [facility] Organization [facility] Address Unknown Phone Unavailable Care Team Providers Care Private Client Advisor Name Role Phone Benjie Montano MD Unavailable Pia Macdonald DO Unavailable Benjie Montano MD PCP Jonny Mathew MD Unavailable Source Comments Some departments are not documenting in the electronic medical record. If you do not see the information that you expected, contact Release of Information in the Health Information Management department at [phone] for further assistance in locating additional records.[facility] Allergies No Known Allergies Current Medications Prescription Sig. Disp. Refills Start End Date Status Date metoprolol XL (TOPROL XL) Take 25 mg by mouth Active 50 mg tablet [...] 90 tablet 4 Active tablet DAILY 18 memantine (NAMENDA) 10 mg Take 1 tablet by mouth 60 tablet 11 Active tablet twice daily. 18 Active Problems Problem Noted Date Late [...] to familiar areas only. Recommend a GPS mgmt consultant should be installed on phone to help [...] or [facility] at [facility] and Alzheimer's Association website for additional helpful information. We will have our Research Study Coordinators contact you regarding possible participation in studies. Return to the [facility]: September 15, 2016 1:[address] Mathew. Contact our office for any questions or concerns. 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 behavioral disturbance (Primary Dx) from Last 3 Months Family History Medical [...] 20 09/21/2017 1:35 PM CDT Oxygen Saturation 57% 06/24/2015 1:25 PM CDT Inhaled Oxygen - - Concentration Weight 89.8 kg (198 lb) 09/21/2017 1:35 PM CDT Height 170.2 cm (5' 7") 09/21/2017 1:35 PM CDT Body Mass Index 31.01 09/21/2017 1:35 PM CDT Plan of Treatment Health Maintenance Due Date Last Done Comments PHYSICAL (COMPREHENSIVE) 1941 EXAM PERTUSSIS VACCINE 1945 TETANUS VACCINE 1951 SHINGLES RECOMBINANT 01/31/1984 VACCINE (1 of 2) PNEUMONIA (PCV13/PPSV23) 1999 VACCINES (1 of 2 - PCV13) INFLUENZA VACCINE 12/05/2017 12/24/2004 Results Not on filefrom Last 3 Months
--- OUTSIDE RECORDS SUMMARY | 2017-12-02 19:10 | XMS REPORT | Continuity of Care Document ---
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 Ot E78.5 HYPERLIPIDEMIA, UNSPECIFIED 08/11/2015 CAPTAINRAVEN AGRICULTURAL EDUCATION INSTRUCTOR Ot E11.65 TYPE 2 DIABETES MELLITUS WITH HYPERGLYCE 08/11/2015 RAVEN ESQUIVEL DAISY Ot E78.5 HYPERLIPIDEMIA, UNSPECIFIED 01/01/2016 ELVIA LOPEZ, GANGA [place] Ot D69.6 THROMBOCYTOPENIA, UNSPECIFIED 01/01/2016 ELVIA LOPEZ, GANGA [place] Ot E11.9 TYPE 2 DIABETES MELLITUS WITHOUT COMPLIC 01/20/2016 ELVIA LOPEZ, GANGA [place] Ot D69.6 THROMBOCYTOPENIA, UNSPECIFIED 01/20/2016 GAN DO, GANGA [place] Ot E11.9 TYPE 2 DIABETES MELLITUS WITHOUT COMPLIC 05/25/2016 GANGA GAN DO Ot R91.1 SOLITARY PULMONARY NODULE 05/26/2016 GANGA GAN DO Ot R91.1 SOLITARY PULMONARY NODULE 07/21/2016 GANGA GAN DO Ot R91.1 SOLITARY PULMONARY NODULE 07/22/2016 GANGA GAN DO Ot R91.1 SOLITARY PULMONARY NODULE 06/22/2017 ELA PARDO MD Ot E11.9 TYPE 2 DIABETES MELLITUS WITHOUT COMPLIC 06/22/2017 ELA PARDO MD, Ot F02.80 DEMENTIA IN OTH DISEASES CLASSD ELSWHR W 06/22/2017 ELA PARDO MD, Ot F32.9 MAJOR DEPRESSIVE DISORDER, SINGLE EPISOD 06/22/2017 ELA PARDO MD, Ot 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 06/22/2017 ELA PARDO MD, Ot I10 ESSENTIAL (PRIMARY) HYPERTENSION 06/22/2017 ELA PARDO MD, Ot T38.3X1A POISONING BY INSULIN AND ORAL HYPOGLYCEM 06/22/2017 ELA PARDO MD, Ot T43.221A POISN BY SELECTIVE SEROTONIN REUPTAKE IN 06/22/2017 ELA APRDO MD, Ot T44.5X1A POISONING BY PREDOM BETA-ADRENOCPT AGONI 06/22/2017 ELA PARDO MD, Ot T50.6X1A POISONING BY ANTIDOTES AND CHELATING AGE 0406/22/2017 ELA PARDO MD, Ot Z79.899 OTHER GRANITE POLISHER (CURRENT) DRUG THERAPY 09/02/2017 GANGA GAN DO, Ot E11.9 TYPE 2 DIABETES MELLITUS WITHOUT COMPLIC 09/22/2017 GANGA GAN DO, Ot E11.9 TYPE 2 DIABETES MELLITUS WITHOUT COMPLIC Procedures There is no data. Results Test [...] 12/31/15 14:35 Hemoglobin A1c 6.0 % 4.5-6.2 Complete blood count (CBC) with automated white blood cell (WBC) differential - 06/21/17 17:20 Blood leukocytes automated count (number/volume) 6.0 10*3/uL 4.3-11.0 Blood erythrocytes automated count (number/volume) 4.41 10*6/uL 4.35-5.85 Venous blood hemoglobin measurement (mass/volume) 13.7 g/dL 13.3-17.7 Blood hematocrit (volume fraction) 40 % 40-54 Automated erythrocyte mean corpuscular volume 91 [foz_us] 80-99 Automated erythrocyte mean corpuscular hemoglobin (mass per erythrocyte) 31 pg 25-34 Automated erythrocyte mean corpuscular hemoglobin concentration measurement ( mass/volume) 34 g/dL 32-36 Automated erythrocyte distribution width ratio 13.6 % 10.0-14.5 Automated blood platelet count (count/volume) 119 10*3/uL 130-400 Automated blood platelet mean volume measurement 10.0 [foz_us] 7.4-10.4 Automated blood neutrophils/100 leukocytes 70 % 42-75 Automated blood lymphocytes/100 leukocytes 18 % 12-44 Blood monocytes/100 leukocytes 9 % 0-12 Automated blood eosinophils/100 leukocytes 2 % 0-10 Automated blood basophils/100 leukocytes 0 % 0-10 Blood neutrophils automated count (number/volume) 4.2 10*3 1.8-7.8 Blood lymphocytes automated count (number/volume) 1.1 10*3 1.0-4.0 Blood monocytes automated count (number/volume) 0.6 10*3 0.0-1.0 Automated eosinophil count 0.1 10*3/uL 0.0-0.3 Automated blood basophil count (count/volume) 0.0 10*3/uL 0.0-0.1 Comprehensive metabolic panel - 06/21/17 17:20 Serum or plasma sodium measurement (moles/volume) 137 mmol/L 135-145 Serum or plasma potassium measurement (moles/volume) 3.9 mmol/L 3.6-5.0 Serum or plasma chloride measurement (moles/volume) 106 mmol/L 98-107 Carbon dioxide 21 mmol/L 21-32 Serum or plasma anion gap determination (moles/volume) 10 mmol/L 5-14 Serum or plasma urea nitrogen measurement (mass/volume) 26 mg/dL 7-18 Serum or plasma creatinine measurement (mass/volume) 1.42 mg/dL 0.60-1.30 Serum or plasma urea nitrogen/creatinine mass ratio 18 NRG Serum or plasma creatinine measurement with calculation of estimated glomerular filtration rate 48 NRG Serum or plasma glucose measurement (mass/volume) 179 mg/dL 70-105 Serum or plasma calcium measurement (mass/volume) 9.9 mg/dL 8.5-10.1 Serum or plasma total bilirubin measurement (mass/volume) 0.9 mg/dL 0.1-1.0 Serum or plasma alkaline phosphatase measurement (enzymatic activity/volume) 69 U/L 40-136 Serum or plasma aspartate aminotransferase measurement (enzymatic activity/ volume) 18 U/L 5-34 Serum or plasma alanine aminotransferase measurement (enzymatic activity/volume ) 24 U/L 0-55 Serum or plasma protein measurement (mass/volume) 6.7 g/dL 6.4-8.2 Serum or plasma albumin measurement (mass/volume) 4.4 g/dL 3.2-4.5 Serum or plasma salicylates measurement (mass/volume) - 06/21/17 17:20 Serum or plasma salicylates measurement (mass/volume) < mg/dL 5.0-20.0 Serum or plasma acetaminophen measurement (mass/volume) - 06/21/17 17:20 Serum or plasma acetaminophen measurement (mass/volume) < ug/mL 10-30 Capillary blood glucose measurement by glucometer (mass/volume) - 06/21/17 20: 07 Capillary blood glucose measurement by glucometer (mass/volume) 165 mg/dL 70-110 Capillary blood glucose measurement by glucometer (mass/volume) - 06/21/17 21: 19 Capillary blood glucose measurement by glucometer (mass/volume) 218 mg/dL 70-110 Capillary blood glucose measurement by glucometer (mass/volume) - 06/21/17 23: 07 Capillary blood glucose measurement by glucometer (mass/volume) 206 mg/dL 70-110 Capillary blood glucose measurement by glucometer (mass/volume) - 06/22/17 00: 02 Capillary blood glucose measurement by glucometer (mass/volume) 180 mg/dL 70-110 Capillary blood glucose measurement by glucometer (mass/volume) - 06/22/17 01: 43 Capillary blood glucose measurement by glucometer (mass/volume) 155 mg/dL 70-110 Complete blood count (CBC) with automated white blood cell (WBC) differential - 06/22/17 03:45 Blood leukocytes automated count (number/volume) 4.2 10*3/uL 4.3-11.0 Blood erythrocytes automated count (number/volume) 3.88 10*6/uL 4.35-5.85 Venous blood hemoglobin measurement (mass/volume) 12.0 g/dL 13.3-17.7 Blood hematocrit (volume fraction) 36 % 40-54 Automated erythrocyte mean corpuscular volume 92 [foz_us] 80-99 Automated erythrocyte mean corpuscular hemoglobin (mass per erythrocyte) 31 pg 25-34 Automated erythrocyte mean corpuscular hemoglobin concentration measurement ( mass/volume) 34 g/dL 32-36 Automated erythrocyte distribution width ratio 13.7 % 10.0-14.5 Automated blood platelet count (count/volume) 106 10*3/uL 130-400 Automated blood platelet mean volume measurement 9.6 [foz_us] 7.4-10.4 Automated blood neutrophils/100 leukocytes 69 % 42-75 Automated blood lymphocytes/100 leukocytes 17 % 12-44 Blood monocytes/100 leukocytes 11 % 0-12 Automated blood eosinophils/100 leukocytes 2 % 0-10 Automated blood basophils/100 leukocytes 0 % 0-10 Blood neutrophils automated count (number/volume) 2.9 10*3 1.8-7.8 Blood lymphocytes automated count (number/volume) 0.7 10*3 1.0-4.0 Blood monocytes automated count (number/volume) 0.5 10*3 0.0-1.0 Automated eosinophil count 0.1 10*3/uL 0.0-0.3 Automated blood basophil count (count/volume) 0.0 10*3/uL 0.0-0.1 Whole blood basic metabolic panel - 06/22/17 03:45 Serum or plasma sodium measurement (moles/volume) 139 mmol/L 135-145 Serum or plasma potassium measurement (moles/volume) 4.1 mmol/L 3.6-5.0 Serum or plasma chloride measurement (moles/volume) 111 mmol/L 98-107 Carbon dioxide 20 mmol/L 21-32 Serum or plasma anion gap determination (moles/volume) 8 mmol/L 5-14 Serum or plasma urea nitrogen measurement (mass/volume) 23 mg/dL 7-18 Serum or plasma creatinine measurement (mass/volume) 1.21 mg/dL 0.60-1.30 Serum or plasma urea nitrogen/creatinine mass ratio 19 NRG Serum or plasma creatinine measurement with calculation of estimated glomerular filtration rate 57 NRG Serum or plasma glucose measurement (mass/volume) 171 mg/dL 70-105 Serum or plasma calcium measurement (mass/volume) 9.1 mg/dL 8.5-10.1 Capillary blood glucose measurement by glucometer (mass/volume) - 06/22/17 05: 42 Capillary blood glucose measurement by glucometer (mass/volume) 148 mg/dL 70-110 Capillary blood glucose measurement by glucometer (mass/volume) - 06/22/17 07: 17 Capillary blood glucose measurement by glucometer (mass/volume) 119 mg/dL 70-110 Capillary blood glucose measurement by glucometer (mass/volume) - 06/22/17 08: 23 Capillary blood glucose measurement by glucometer (mass/volume) 122 mg/dL 70-110 Capillary blood glucose measurement by glucometer (mass/volume) - 06/22/17 09: 24 Capillary blood glucose measurement by glucometer (mass/volume) 162 mg/dL 70-110 Capillary blood glucose measurement by glucometer (mass/volume) - 06/22/17 10: 46 Capillary blood glucose measurement by glucometer (mass/volume) 132 mg/dL 70-110 Capillary blood glucose measurement by glucometer (mass/volume) - 06/22/17 11: 41 Capillary blood glucose measurement by glucometer (mass/volume) 130 mg/dL 70-110 Capillary blood glucose measurement by glucometer (mass/volume) - 06/22/17 12: 43 Capillary blood glucose measurement by glucometer (mass/volume) 110 mg/dL 70-110 Capillary blood glucose measurement by glucometer (mass/volume) - 06/22/17 13: 40 Capillary blood glucose measurement by glucometer (mass/volume) 120 mg/dL 70-110 Capillary blood glucose measurement by glucometer (mass/volume) - 06/22/17 14: 46 Capillary blood glucose measurement by glucometer (mass/volume) 160 mg/dL 70-110 Capillary blood glucose measurement by glucometer (mass/volume) - 06/22/17 15: 32 Capillary blood glucose measurement by glucometer (mass/volume) 155 mg/dL 70-110 Capillary blood glucose measurement by glucometer (mass/volume) - 06/22/17 16: 24 Capillary blood glucose measurement by glucometer (mass/volume) 173 mg/dL 70-110 Lipid 1996 panel - 09/01/17 12:28 Serum or plasma triglyceride measurement (mass/volume) 219 mg/dL <150 Serum or plasma cholesterol measurement (mass/volume) 151 mg/dL < 200 Serum or plasma cholesterol in HDL measurement (mass/volume) 30 mg/ dL 40-60 Cholesterol in LDL [mass/volume] in serum or plasma by direct assay 74 mg/dL 1-129 Serum or plasma cholesterol in VLDL measurement (mass/volume) 44 mg/ dL 5-40 Hemoglobin A1c - 09/01/17 12:28 Blood hemoglobin A1C measurement (mass/volume) 6.9 % 4.0- 5.6 MEAN BLOOD GLUCOSE 151 % <=126 Encounters ACCT No. Visit Date/Time Discharge Status Pt. Type Provider Facility Loc./Unit Complaint [id number] 09/01/2017 12:14:00 09/01/2017 23:59:59 CLS Outpatient GANGA GAN DO [facility] LAB E11.9 [id number] 06/21/2017 18:07:00 06/22/2017 17:54:00 DIS Inpatient ELA PARDO MD [facility] ICU ACCIDENTAL O.D. [id number] 05/25/2016 08:32:00 05/25/2016 23:59:59 CLS Outpatient GANGA GAN DO [facility] RAD PULMONARY NODULES [id number] 12/31/2015 14:22:00 12/31/2015 23:59:59 CLS Outpatient GANGA GAN DO [facility] LAB E11.9 THROMBOCYTOPENIA [id number] 07/19/2015 10:56:00 07/19/2015 23:59:59 CLS Outpatient RAVEN SANDERS [facility] LAB [id number] 07/02/2013 12:21:00 07/02/2013 23:59:59 CLS Outpatient [id number] 04/10/2013 10:08:00 04/10/2013 23:59:59 CLS Outpatient [id number] 11/02/2012 11:11:00 11/02/2012 23:59:59 CLS Outpatient [id number] 06/30/2012 10:40:00 06/30/2012 23:59:59 CLS Outpatient [id number] 05/02/2014 09:52:00 Document Registration [id number] 01/03/2012 14:03:00 Document Registration [id number] 12/27/2011 10:45:00 Document Registration [id number] 06/25/2011 09:07:00 Document Registration [id number] 06/25/2011 09:00:00 Document Registration [id number] 12/14/2010 11:25:00 Document Registration [id number] 12/07/2010 10:35:00 Document Registration [id number] 06/15/2010 11:11:00 Document Registration [id number] 06/11/2010 10:16:00 Document Registration [id number] 03/26/2010 13:35:00 Document Registration [id number] 12/11/2009 10:18:00 Document Registration [id number] 10/29/2009 15:00:00 Document Registration [id number] 09/17/2009 14:28:00 Document Registration [id number] 12/12/2008 09:48:00 Document Registration
--- NOTE | 2017-12-02 19:14 | ED General ---
General Stated Complaint: N/V Source of Information: Patient (PT IS VERY POOR HISTORIAN ABOUT PMH--HAS HISTORY OF DEMENTIA) History of Present Illness Date Seen by Provider: Dec 02, 2017 Time Seen by Provider: 19:03 Initial Comments PT ARRIVES VIA EMS FROM HOME C/O NAUSEA /VOMITING--"COUPLE OF TIMES" --MOSTLY "PHLEGM" PER PT HAD TEMP OF 102.9 AT HOME HAD HAD GENERALIZED WEAKNESS SYMPTOMS BEGAN THIS MORNING, PT STATES HE FELT FINE LAST NIGHT WHEN HE WENT TO BED. PT HAS NOT TAKEN ANYTHING AT HOME FOR SYMPTOMS EMS GAVE ZOFRAN 4 MG PT DENIES DIARRHEA PT DENIES ABDOMINAL PAIN NO KNOWN SICK CONTACTS OR SUSPICIOUS FOODS. NO OTHER INFORMATION OBTAINABLE FROM PT IN ROOM A SHORT TIME LATER, AND STATES HE WAS FINE WHEN HE WENT TO BED LAST NIGHT BUT STARTED FEELING BAD THIS MORNING WAS UNAWARE THAT HE HAD FEVER, BUT STATES NOW THAT HE DID HAVE CHILLS AND WAS SHAKING THIS MORNING AND AGAIN AROUND 1700 THIS EVENING, BUT DID NOT CHECK TEMPERATURE. PCP: DR. GAN Allergies and Home Medications Allergies Coded Allergies: No Known Drug Allergies (Unverified , 01/03/12) Home Medications Acetaminophen 500 Mg Tablet, 500-1,000 MG PO Q6H PRN for PAIN-MILD, (Reported) Alprazolam 0.25 Mg Tablet, 0.25 MG PO DAILY PRN for ANXIETY, (Reported) Aspirin 81 Mg Tablet.dr, 81 MG PO HS, (Reported) Atorvastatin Calcium 40 Mg Tablet, 40 MG PO HS, (Reported) Cholecalciferol (Vitamin D3) 2,000 Unit Capsule, 2,000 UNIT PO DAILY, (Reported) Donepezil HCl 10 Mg Tablet, 10 MG PO DAILY, (Reported) Fexofenadine HCl 60 Mg Tablet, 60 MG PO DAILY PRN for ALLERGIES, (Reported) Glimepiride 1 Mg Tablet, 1 MG PO DAILY, (Reported) Losartan Potassium 50 Mg Tablet, 50 MG PO DAILY, (Reported) Omeprazole 20 Mg Capsule.dr, 20 MG PO DAILY, (Reported) Sertraline HCl 50 Mg Tablet, 50 MG PO DAILY, (Reported) [Knee Injections] , INJ EVERY 6 MONTHS, (Reported) LEFT KNEE Review of Systems Review of Systems Constitutional: fever, malaise, weakness Respiratory: No cough, No short of breath Cardiovascular: No chest pain Gastrointestinal: No abdominal pain; nausea, vomiting Genitourinary: other (UNKNOWN LAST VOID OR IF URINARY SYMPTOMS) Psychiatric/Neurological: Denies Headache; Pre-Existing Deficit (DEMENTIA) Past Zcslvyi-Glhqut-Hfmbjr Hx Patient Social History Smoking Status: Former Smoker Type Used: Cigarettes, Pipe Former Smoker, Quit: July 28, 1977 Recent Foreign Travel: No Contact w/Someone Who Travel: No Recent Hopitalizations: Yes Immunizations Up To Date Date of Pneumonia Vaccine: Dec 05, 2008 Date of Influenza Vaccine: Dec 28, 2011 Past Medical History Surgeries: Yes (squamos cell removal 2001, renal stent 02/11/07, quadruple bypass 08/31/07; BOWEL RESECTION FOR RUPTURED DIVERTICULUM) Abdominal, Appendectomy, Bowel Surgery, Cardiac, CABG, Gallbladder Respiratory: Yes Sleep Apnea Currently Using CPAP: Yes Currently Using BIPAP: No Cardiac: Yes (CABG) Coronary Artery Disease, High Cholesterol, Hypertension Neurological: Yes Dementia Genitourinary: Yes (URETERAL STENT) Gastrointestinal: Yes (BOWEL RESECTION FOR RUPTURED DIVERTICULUM; S/P DOMINIQUE AND APPY) Diverticulosis, Gall Bladder Disease Musculoskeletal: Yes (knee pain --knees injected 04-02-10 07-06-10 01-13-11) Arthritis Endocrine: Yes Diabetes, Non-Insulin dep HEENT: No Cancer: Yes Skin Did You Recieve Any Treatments: Yes What Type of Treatment Did You: Surgical Intervention Psychosocial: Yes (DEMENTIA) Depression Integumentary: Yes (SKIN CANCER) Blood Disorders: No Family Medical History No Pertinent Family Hx Physical Exam Vital Signs Vital Signs - First Documented 12/02/17 19:05 Temp 101.5 Pulse 101 Resp 16 B/P (MAP) 116/63 Pulse Ox 98 Capillary Refill : Height, Weight, BMI Height: 5'7.00" Weight: 207lbs. 2.0oz. 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, 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 Norm as Tested, Other (ORIENTED TO PERSON, KNOWS IN HOSPITAL, GROSSLY AWARE OF SITUTATION, BUT UNCLEAR IF ORIENTED TO TIME AND VERY POOR MEMORY) Focused Exam Lactate Level 12/02/17 19:08: Lactic Acid Level 2.05*H 12/02/17 21:10: Lactic Acid Level 2.06*H Lactic Acid Level Laboratory Tests Test 12/02/17 19:08 12/02/17 21:10 Lactic Acid Level 2.05 MMOL/L (0.50-2.00) *H 2.06 MMOL/L (0.50-2.00) *H Progress/Results/Core Measures Suspected Sepsis SIRS Temperature: Pulse: Respiratory Rate: Laboratory Tests 12/02/17 19:08: White Blood Count 6.2 Blood Pressure / Mean: 12/02/17 19:08: Lactic Acid Level 2.05*H 12/02/17 21:10: Lactic Acid Level 2.06*H Laboratory Tests 12/02/17 19:08: Creatinine 1.37H, INR Comment 1.1, Platelet Count 102L, Total Bilirubin 1.5H Results/Orders Lab Results Laboratory Tests Test 12/02/17 19:08 12/02/17 19:50 12/02/17 21:10 Range/Units White Blood Count 6.2 4.3-11.0 10^3/uL Red Blood Count 3.90 L 4.35-5.85 10^6/uL Hemoglobin 12.4 L 13.3-17.7 G/DL Hematocrit 36 L 40-54 % Mean Corpuscular Volume 93 80-99 FL Mean Corpuscular Hemoglobin 32 25-34 PG Mean Corpuscular Hemoglobin Concent 34 32-36 G/DL Red Cell Distribution Width 13.2 10.0-14.5 % Platelet Count 102 L 130-400 10^3/uL Mean Platelet Volume 9.9 7.4-10.4 FL Neutrophils (%) (Auto) 92 H 42-75 % Lymphocytes (%) (Auto) 3 L 12-44 % Monocytes (%) (Auto) 5 0-12 % Eosinophils (%) (Auto) 0 0-10 % Basophils (%) (Auto) 0 0-10 % Neutrophils # (Auto) 5.7 1.8-7.8 X 10^3 Lymphocytes # (Auto) 0.2 L 1.0-4.0 X 10^3 Monocytes # (Auto) 0.3 0.0-1.0 X 10^3 Eosinophils # (Auto) 0.0 0.0-0.3 10^3/uL Basophils # (Auto) 0.0 0.0-0.1 10^3/uL Neutrophils % (Manual) 80 % Lymphocytes % (Manual) 5 % Monocytes % (Manual) 1 % Eosinophils % (Manual) 0 % Basophils % (Manual) 0 % Band Neutrophils 14 % Blood Morphology Comment NORMAL Prothrombin Time 14.3 12.2-14.7 SEC INR Comment 1.1 0.8-1.4 Activated Partial Thromboplast Time 26 24-35 SEC Sodium Level 138 135-145 MMOL/L Potassium Level 3.9 3.6-5.0 MMOL/L Chloride Level 105 98-107 MMOL/L Carbon Dioxide Level 23 21-32 MMOL/L Anion Gap 10 5-14 MMOL/L Blood Urea Nitrogen 21 H 7-18 MG/DL Creatinine 1.37 H 0.60-1.30 MG/DL Estimat Glomerular Filtration Rate 50 BUN/Creatinine Ratio 15 Glucose Level 176 H 70-105 MG/DL Lactic Acid Level 2.05 *H 2.06 *H 0.50-2.00 MMOL/L Calcium Level 9.1 8.5-10.1 MG/DL Corrected Calcium 9.0 8.5-10.1 MG/DL Magnesium Level 1.5 L 1.8-2.4 MG/DL Total Bilirubin 1.5 H 0.1-1.0 MG/DL Aspartate Amino Transf (AST/SGOT) 73 H 5-34 U/L Alanine Aminotransferase (ALT/SGPT) 77 H 0-55 U/L Alkaline Phosphatase 66 40-136 U/L Total Protein 6.4 6.4-8.2 GM/DL Albumin 4.1 3.2-4.5 GM/DL Amylase Level 93 25-125 U/L Lipase 59 8-78 U/L Urine Color YELLOW Urine Clarity CLEAR Urine pH 7 5-9 Urine Specific [place] 1.010 L 1.016-1.022 Urine Protein 1+ H NEGATIVE Urine Glucose (UA) NEGATIVE NEGATIVE Urine Ketones NEGATIVE NEGATIVE Urine Nitrite NEGATIVE NEGATIVE Urine Bilirubin NEGATIVE NEGATIVE Urine Urobilinogen 1 NORMAL MG/DL Urine Leukocyte Esterase 1+ H NEGATIVE Urine RBC (Auto) NEGATIVE NEGATIVE Urine RBC NONE /HPF Urine WBC 0-2 /HPF Urine Squamous Epithelial Cells RARE /HPF Urine Crystals NONE /LPF Urine Bacteria NONE /HPF Urine Casts NONE /LPF Urine Mucus TRACE /LPF Urine Culture Indicated NO Micro Results Microbiology 12/02/17 Influenza Types A,B Antigen (FELIPE) - Final, Complete My Orders Orders - LUZ MARIA PEREZ DO Saline Lock/Iv-Start (12/02/17 19:07) Ekg Tracing (12/02/17 19:07) Monitor-Rhythm Ecg Trace Only (12/02/17 19:07) Amylase (12/02/17 19:07) Cbc With Automated Diff (12/02/17 19:07) Comprehensive Metabolic Panel (12/02/17 19:07) Lactic Acid Analyzer (12/02/17 19:07) Lipase (12/02/17 19:07) Magnesium (12/02/17 19:07) Protime With Inr (12/02/17 19:07) Partial Thromboplastin Time (12/02/17 19:07) Ua Culture If Indicated (12/02/17 19:07) Blood Culture (12/02/17 19:07) Influenza A And B Antigens (12/02/17 19:07) Chest 1 View, Ap/Pa Only (12/02/17 19:07) Saline Lock/Iv-Start (12/02/17 19:07) Lactated Ringers (Lr 1000 Ml Iv Solution (12/02/17 19:07) Ondansetron Injection (Zofran Injectio (12/02/17 19:15) Manual Differential (12/02/17 19:08) Ct Chest/Abdomen/Pelvis Wo (12/02/17 19:40) Acetaminophen Tablet (Tylenol Tablet) (12/02/17 20:00) Ct Head Wo (12/02/17 21:08) Ceftriaxone For Iv Use (Rocephin For I (12/02/17 21:15) Medications Given in ED Current Medications Medications Dose Ordered Sig/Ta Route Start Time Stop Time Status Last Admin Dose Admin Acetaminophen 1,000 mg ONCE ONCE PO 12/02/17 20:00 12/02/17 20:01 DC 12/02/17 20:07 1,000 MG Ceftriaxone Sodium 1000 mg/ Sodium Chloride 50 ml @ 100 mls/hr ONCE ONCE IV 12/02/17 21:15 12/02/17 21:44 DC 12/02/17 22:02 100 MLS/HR Lactated Ringer's 1,000 ml @ 0 mls/hr Q0M ONCE IV 12/02/17 19:07 12/02/17 19:10 DC 12/02/17 19:44 1,000 MLS/HR Ondansetron HCl 4 mg ONCE ONCE IVP 12/02/17 19:15 12/02/17 19:16 DC 12/02/17 19:44 4 MG Vital Signs/I&O 12/02/17 12/02/17 19:05 20:49 Temp 101.5 102.5 Pulse 101 103 Resp 16 16 B/P (MAP) 116/63 116/63 (80) Pulse Ox 98 95 Capillary Refill : Progress Note : Progress Note 1944--PT MUCH MORE ALERT, TALKATIVE, APPEARS MORE ORIENTED, ESPECIALLY SINCE IS NOW IN ROOM. PT STATES NAUSEA IS GONE NOW AND HAS NO COMPLAINTS ECG Initial ECG Impression Date: Dec 02, 2017 Initial ECG Impression Time: 19:42 Initial ECG Rate: 93 Initial ECG Rhythm: Normal Sinus (RBBB) Initial ECG Comparisson: Unchanged (FROM 2011) Diagnostic Imaging Comments CT HEAD/SINUSES--NO ACUTE PROCESS, CHRONIC CHANGES, PER RADIOLOGIST REPORT @ 2208 Departure Impression Primary Impression: Fever of unknown origin Additional Impression: POSSIBLE VIRAL ILLNESS Disposition: HOME, SELF-CARE Condition: Stable Departure-Patient Inst. Referrals: GANGA GAN DO (PCP/Family) Primary Care Physician Patient Instructions: Fever, Adult (DC), VIRAL SYNDROME Add. Discharge Instructions: LOTS OF CLEAR LIQUIDS--WATER, BROTH, JELLO, GATORADE--DRINK ENOUGH SO YOU ARE URINATING EVERY 2 HOURS WHILE AWAKE GIVE TYLENOL 1 GRAM/ MOTRIN 800 MG 4 TIMES A DAY FOR PAIN OR FEVER FOLLOW UP WITH YOUR DR ON TUESDAY RETURN TO ER IF WORSE Scripts Cefdinir (Cefdinir) 300 Mg Capsule 300 MG PO BID for FOR INFECTION, #20 CAP Prov: LUZ MARIA PEREZ DO 12/02/17 Ondansetron (Zofran Odt) 4 Mg Tab.rapdis 4 MG PO Q4H for Nausea/Vomiting, #10 TAB Prov: LUZ MARIA PEREZ DO 12/02/17 LUZ MARIA PEREZ DO Dec 02, 2017 19:14
[2017-12-02] MEDS ORDERED: ONDANSETRON 4 MG/2 ML (SDV) Z0FRAN IVP ONE (19:15)
[2017-12-02 19:18] LABS: BASOPHILS % (AUTO) 0 % (0-10); EOSINOPHILS % (AUTO) 0 % (0-10); HEMATOCRIT 36 % (40-54); HEMOGLOBIN 12.4 G/DL (13.3-17.7); LYMPHOCYTES # (AUTO) 0.2 X 10^3 (1.0-4.0); LYMPHOCYTES % (AUTO) 3 % (12-44); MEAN CORPUSCULAR HEMOGLOBIN 32 PG (25-34); MEAN CORPUSCULAR HGB CONC 34 G/DL (32-36); MEAN CORPUSCULAR VOLUME 93 FL (80-99); MEAN PLATELET VOLUME 9.9 FL (7.4-10.4); MONOCYTES # (AUTO) 0.3 X 10^3 (0.0-1.0); MONOCYTES % (AUTO) 5 % (0-12); NEUTROPHILS # (AUTO) 5.7 X 10^3 (1.8-7.8); NEUTROPHILS % (AUTO) 92 % (42-75); PLATELET COUNT 102 10^3/uL (130-400); RED CELL DISTRIBUTION WIDTH 13.2 % (10.0-14.5); WHITE BLOOD COUNT 6.2 10^3/uL (4.3-11.0)
[2017-12-02 19:28] LABS: INR 1.1 (0.8-1.4); PROTHROMBIN TIME PATIENT 14.3 SEC (12.2-14.7)
[2017-12-02 19:38] LABS: ALBUMIN 4.1 GM/DL (3.2-4.5); BILIRUBIN,TOTAL 1.5 MG/DL (0.1-1.0); CALCIUM 9.1 MG/DL (8.5-10.1); CREATININE SERUM 1.37 MG/DL (0.60-1.30); MAGNESIUM 1.5 MG/DL (1.8-2.4); POTASSIUM 3.9 MMOL/L (3.6-5.0); TOTAL PROTEIN 6.4 GM/DL (6.4-8.2)
[2017-12-02 19:58] LABS: BAND NEUTROPHILS 14 %; BASOPHILS % (MANUAL) 0 %; EOSINOPHILS % (MANUAL) 0 %; LYMPHOCYTES % (MANUAL) 5 %; MONOCYTES % (MANUAL) 1 %; NEUTROPHILS % (MANUAL) 80 %; RBC MORPH NORMAL
[2017-12-02 19:58] LABS: BILIRUBIN,URINE NEGATIVE (NEGATIVE); CLARITY,URINE CLEAR; COLOR,URINE YELLOW; GLUCOSE, URINE (UA) NEGATIVE (NEGATIVE); KETONES,URINE NEGATIVE (NEGATIVE); LEUKOCYTE ESTERASE ,URINE 1+ (NEGATIVE); NITRITE,URINE NEGATIVE (NEGATIVE); PH,URINE 7 (5-9); PROTEIN,URINE 1+ (NEGATIVE); UROBILINOGEN,URINE 1 MG/DL (NORMAL)
[2017-12-02] MEDS ORDERED: ACETAMINOPHEN 500 MG TAB (TYLENOL) PO ONE (20:00)
[2017-12-02 20:07] LABS: WBC,URINE 0-2 /HPF
[2017-12-02 20:08] LABS: SQUAMOUS EPITHELIAL CELL,UR RARE /HPF
--- NOTE | 2017-12-02 20:33 | Diagnostic Imaging Report ---
INDICATION: Fever. COMPARISON: Comparison is made with a prior PET examination from May 25, 2016. FINDINGS: A small nodule is demonstrated within the right lower lobe. This does not appear appreciably changed. There is no focal alveolar infiltrate or consolidation evident. There is no effusion. There is no pneumothorax. Heart size is enlarged and the patient is status post previous sternotomy. There are no current findings of congestive failure. IMPRESSION: 1. No findings of focal alveolar infiltrate or pneumonia. There is no effusion. 2. Enlarged cardiac silhouette without evidence of failure. 3. Stable right lower lobe pulmonary nodule. Dictated by: Dictated on workstation # [id number]
--- NOTE | 2017-12-02 20:56 | Diagnostic Imaging Report ---
PROCEDURE: CT chest, abdomen, and pelvis without contrast. TECHNIQUE: Multiple contiguous axial images were obtained through the chest, abdomen, and pelvis without the use of intravenous contrast. INDICATION: Fever. Comparison is made to chest radiograph from the same day. FINDINGS: There is a small nodule demonstrated in the right lower lobe which is unchanged from previous PET examination from 2017 at which time it demonstrated no metabolic activity. No new pulmonary nodule or pulmonary mass evident. There is no focal infiltrate. There is no effusion or pneumothorax. The patient is status post previous sternotomy. There is mild cardiomegaly. There are coronary calcifications as well as atherosclerotic calcifications within a normal caliber thoracic aorta. The abdomen demonstrates previous right-sided cholecystectomy with a small degree of pneumobilia likely related to previous sphincterotomy. There is no noncontrast evidence of a focal intrahepatic abnormality. There is no abnormal biliary dilatation. The spleen demonstrates some granulomas and is otherwise unremarkable. The pancreas is atrophic. There is no adrenal mass. The kidneys appear nonobstructed. There is a left renal cyst. There is no urolithiasis or hydronephrosis. Small and large bowel appear normal in caliber without evidence of obstruction. There are prior anastomotic sutures demonstrated within the sigmoid. There is moderate stool within the colon but no findings of abnormal bowel thickening or findings of bowel obstruction. There is no free air, free fluid or evidence of fluid collection to suggest abscess. Urinary bladder appears mildly thickened. The prostate is enlarged. There are fat-containing inguinal hernias. There are no pathologically enlarged abdominal or pelvic lymph nodes. There are advanced atherosclerotic calcifications within the aorta. There appears to be a right renal stent. There are multilevel degenerative features present throughout the spine but there are no findings of traumatic malalignment or acute or suspicious osseous abnormality. IMPRESSION: 1. Stable right lower lobe pulmonary nodule. Lungs are otherwise clear without focal infiltrate 2. Previous cholecystectomy with a small degree of pneumobilia likely related to sphincterotomy. There is no abnormal biliary dilatation. Pneumobilia was also present on the prior PET examination. 3. No evidence of bowel obstruction. There are prior surgical changes involving the sigmoid. 4. Thickened appearance of the urinary bladder with prostatic enlargement. Cystitis or urinary tract infection cannot be excluded. 5. Left renal cyst. No hydronephrosis or urolithiasis evident. 6. No focal inflammation within the omentum or mesentery. There is no free air, free fluid or evidence of abscess. 7. Advanced atherosclerosis and coronary artery disease. 8. 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 Dictated by: Dictated on workstation # [id number]
[2017-12-02] MEDS ORDERED: cefTRIAXone FOR IV USE 1,000 MG in NS (IVPB) 50 ML IV ONE (21:15)
--- NOTE | 2017-12-02 21:31 | Diagnostic Imaging Report ---
PROCEDURE: CT head without contrast. TECHNIQUE: Multiple contiguous axial images were obtained through the brain without the use of intravenous contrast. INDICATION: Headache and altered mental status. FINDINGS: There is advanced global volume loss. There are no findings of intracranial hemorrhage. There is no mass effect or shift. There is no hydrocephalus. There is no abnormal extra-axial fluid collection. There are mild microvascular changes within the white matter. There is no evidence of territorial loss of doan-white differentiation. There is no abnormal hypodensity evident within the basal ganglia. Mastoid air cells appear clear. The paranasal sinuses demonstrate some mild mucosal thickening in the ethmoids. Orbital contents are unremarkable. There is no acute calvarial abnormality. IMPRESSION: Advanced global volume loss with background microvascular changes in the white matter. There are, however, no CT findings of an acute intracranial abnormality. Dictated by: Dictated on workstation # [id number]
[2017-12-02] MEDS ORDERED: ONDA4TAB8 PO (22:11)
[2017-12-02] MEDS ORDERED: RX-ONDANSETRON 4 MG ODT (ZOFRAN) PPK #4 PO STA (22:11)
[2017-12-02] MEDS ORDERED: CEFD300C3 PO (22:11)
[2017-12-02] MEDS ORDERED: RX-ONDANSETRON 4 MG ODT (ZOFRAN) PPK #4 ONE (22:12)
[2017-12-02 22:26] VITALS: BP 116/63
== END 2017-12-02 22:26 | disposition home or self-care (01) ==
LOC: EDUNIT# 19:04 → ER 19:05
DX: R50.9 Fever, unspecified (principal); R51 Headache; G47.30 Sleep apnea, unspecified; I25.10 Atherosclerotic heart disease of native coronary artery without angina pectoris; I10 Essential (primary) hypertension; E78.00 Pure hypercholesterolemia, unspecified; F03.90 Unspecified dementia, unspecified severity, without behavioral disturbance, psychotic disturbance, mood disturbance, and anxiety; E11.9 Type 2 diabetes mellitus without complications; F32.9 Major depressive disorder, single episode, unspecified; Z85.828 Personal history of other malignant neoplasm of skin; Z87.19 Personal history of other diseases of the digestive system; Z79.82 Long term (current) use of aspirin; Z79.84 Long term (current) use of oral hypoglycemic drugs; Z87.891 Personal history of nicotine dependence; Z96.0 Presence of urogenital implants; Z90.49 Acquired absence of other specified parts of digestive tract; Z90.89 Acquired absence of other organs; Z95.1 Presence of aortocoronary bypass graft
CPT/HCPCS: 36415; 70450; 71045; 71250; 74176; 80053; 81000; 82150; 83605; 83690; 83735; 85007; 85027; 85610; 85730; 87040; 87804; 93005; 93041

== ENCOUNTER → 2018-07-14 | Outpatient (CLI) | payer MEDICARE ==
[~2018-07-14] MED LIST changes: +CEFD300C3 PO; +LOSA50TA63 PO; -LOSA50TA7 PO; +ONDA4TAB8 PO
== END ==
LOC: LAB 16:07
PROVIDERS: ATTEND Internal Medicine
DX: E11.9 Type 2 diabetes mellitus without complications (principal); I10 Essential (primary) hypertension; F03.90 Unspecified dementia, unspecified severity, without behavioral disturbance, psychotic disturbance, mood disturbance, and anxiety; E78.2 Mixed hyperlipidemia
CPT/HCPCS: 36415; 83036

== ENCOUNTER 2019-01-01 14:22 | Emergency (ER) | payer MEDICARE ==
[~2019-01-01] VITALS: Ht 170.2 cm; Wt 89.9 kg
[~2019-01-01 14:22] MED LIST changes: -OMEP20CA12 PO; +OMEP20CA13 PO
--- NOTE | 2019-01-01 15:46 | Diagnostic Imaging Report ---
INDICATION: Fall with memory loss. TECHNIQUE: Multiple contiguous axial images were obtained through the brain without the use of intravenous contrast. Auto Exposure Controls were utilized during the CT exam to meet ALARA standards for radiation dose reduction. Comparison made to 12/02/2017. FINDINGS: There are diffuse atrophic changes. There are moderate low-density changes in the deep white matter. Ventricles show mild prominence compatible with age. There is low-density change in the hortensia, which may be due to old ischemic change. There is no subdural or epidural collection or acute appearing finding. Calvarial windows appear unremarkable. IMPRESSION: Atrophic changes and chronic ischemic changes are present as above. There is no acute hemorrhage or extra-axial fluid collection. Dictated by: Dictated on workstation # [id number]
--- NOTE | 2019-01-01 16:05 | ED Fall/Injury ---
General Chief Complaint: Trauma-Non Activation Stated Complaint: FALL;WEAKNESS;VOMITING Nursing Triage Note: Pt amb to triage with c/o fall. @ side reports pt fell in bathroom on this day @ approx 1000. reports pt was unable to get up on the floor and laid on floor for approx 3hrs before he was able to get up with assist. reports she did not witness fall, but she heard pt fall. Pt denies LOC, but denies remembering fall. Pt reports to take 81mg ASA qday. reports pt has experienced x3 episodes of emsis since fall on this day. AROM noted. Pt denies pain or injury. 3mm PERRLA. reports pt hx alzheimers. History of Present Illness Date Seen by Provider: Jan 01, 2019 Time Seen by Provider: 14:45 Initial Comments 83-year-old male presents after a fall earlier today. His was present in the home and sought to him right after the fall. There was no loss of consciousness. He has long-standing Alzheimer's disease with dementia. She reports that he was weak after the fall and it took extra effort to get him up off the ground. She denies any change in his baseline mental status. He's had one episode of vomiting after the fall, no seizures and no further nausea. He does not take blood thinners. Patient denies any complaints at this time, he is unaware of a fall earlier today. Occurred: this morning Severity: mild Injuries/Pain Location: head Loss of Consciousness: no loss of consciousness Associated Symptoms (Fall): Denies Symptoms Allergies and Home Medications Allergies Coded Allergies: No Known Drug Allergies (Unverified , 01/03/12) Home Medications Acetaminophen 500 Mg Tablet, 500-1,000 MG PO Q6H PRN for PAIN-MILD, (Reported) Alprazolam 0.25 Mg Tablet, 0.25 MG PO DAILY PRN for ANXIETY, (Reported) Aspirin 81 Mg Tablet.dr, 81 MG PO HS, (Reported) Atorvastatin Calcium 40 Mg Tablet, 40 MG PO HS, (Reported) Cefdinir 300 Mg Capsule, 300 MG PO BID Prescribed by: LUZ MARIA PEREZ on 12/02/17 4888 Cholecalciferol (Vitamin D3) 2,000 Unit Capsule, 2,000 UNIT PO DAILY, (Reported) Donepezil HCl 10 Mg Tablet, 10 MG PO DAILY, (Reported) Fexofenadine HCl 60 Mg Tablet, 60 MG PO DAILY PRN for ALLERGIES, (Reported) Glimepiride 1 Mg Tablet, 1 MG PO DAILY, (Reported) Losartan Potassium 50 Mg Tablet, 50 MG PO DAILY, (Reported) Omeprazole 20 Mg Capsule.dr, 20 MG PO DAILY, (Reported) Ondansetron 4 Mg Tab.rapdis, 4 MG PO Q4H Prescribed by: LUZ MARIA PEREZ on 12/02/17 1054 Sertraline HCl 50 Mg Tablet, 50 MG PO DAILY, (Reported) [Knee Injections] , INJ EVERY 6 MONTHS, (Reported) LEFT KNEE Patient Home Medication List Home Medication List Reviewed: Yes Review of Systems Review of Systems Constitutional: no symptoms reported, see HPI All Other Systems Reviewed Negative Unless Noted: Yes Past Lhhwnzk-Holitj-Orhinx Hx Past Med/Social Hx: Reviewed Nursing Past Med/Soc Hx Patient Social History Alcohol Use: Denies Use Recreational Drug Use: No Smoking Status: Former Smoker Type Used: Cigarettes, Pipe Former Smoker, Quit: July 28, 1977 2nd Hand Smoke Exposure: No Recent Foreign Travel: No Contact w/Someone Who Travel: No Recent Infectious Disease Expo: No Recent Hopitalizations: Yes Physical Abuse: No Sexual Abuse: No Mistreated: No Fear: No Immunizations Up To Date Date of Pneumonia Vaccine: Dec 05, 2008 Date of Influenza Vaccine: Dec 28, 2011 Past Medical History Surgeries: Yes Abdominal, Appendectomy, Bowel Surgery, Cardiac, CABG, Gallbladder Respiratory: Yes Sleep Apnea Currently Using CPAP: Yes Currently Using BIPAP: No Cardiac: Yes (CABG) Coronary Artery Disease, High Cholesterol, Hypertension Neurological: Yes Dementia Genitourinary: Yes (URETERAL STENT) Gastrointestinal: Yes (BOWEL RESECTION FOR RUPTURED DIVERTICULUM; S/P DOMINIQUE AND APPY) Diverticulosis, Gall Bladder Disease Musculoskeletal: Yes (knee pain --knees injected 04-02-10 07-06-10 01-13-11) Arthritis Endocrine: Yes Diabetes, Non-Insulin dep HEENT: No Cancer: Yes Skin Did You Recieve Any Treatments: Yes What Type of Treatment Did You: Surgical Intervention Psychosocial: Yes (DEMENTIA) Depression Integumentary: Yes (SKIN CANCER) Blood Disorders: No Family Medical History No Pertinent Family Hx Physical Exam Vital Signs Vital Signs - First Documented 01/01/19 14:29 Temp 36.4 Pulse 100 Resp 17 B/P (MAP) 108/72 (84) Pulse Ox 100 O2 Delivery Room Air Capillary Refill : Less Than 3 Seconds Height, Weight, BMI Height: 5'9.00" Weight: 180lbs. 2.0oz. 81.124560my; 31.00 BMI Method:Stated General Appearance: WD/WN, no apparent distress HEENT: PERRL/EOMI, normal ENT inspection, TMs normal, pharynx normal Neck: non-tender, full range of motion, supple, normal inspection Cardiovascular: normal peripheral pulses, regular rate, rhythm Respiratory: chest non-tender, lungs clear, normal breath sounds Gastrointestinal: normal bowel sounds, non tender, soft Back: normal inspection, no CVA tenderness, no vertebral tenderness Neurologic/Psychiatric: no motor/sensory deficits, alert, normal mood/affect Skin: normal color, warm/dry [place] Coma Score Best Eye Response: (4) Open Spontaneously Best Verbal Response: (4) Confused Conversation (alert to person and place only ) Best Motor Response: (6) Obeys Commands Amarilis Total: 14 Progress/Results/Core Measures Results/Orders My Orders Orders - EVIE MCKENNA Ct Head Wo (01/01/19 15:13) Vital Signs/I&O 01/01/19 01/01/19 14:29 16:13 Temp 36.4 36.9 Pulse 100 84 Resp 17 16 B/P (MAP) 108/72 (84) 129/69 Pulse Ox 100 98 O2 Delivery Room Air Room Air Blood Pressure Mean: 84 POS Progress Progress Note : Time: 14:45 Progress Note Patient seen and evaluated, we'll obtain CT of the head and reevaluate. 1600 CT head negative. Patient taking ice chips and water. Discharge instructions and return precautions reviewed with the patient and his Diagnostic Imaging Diagonstic Imaging: CT Plain Films/CT/US/NM/MRI: head Comments NAME: AMY CHILDERS [facility] REC#: [id number] PT STATUS: REG ER : 1935 PHYSICIAN: EVIE MCKENAN ADMIT DATE: 01/01/19/ER Draft POSDate of Exam:01/01/19 CT HEAD WO INDICATION: Fall with memory loss. TECHNIQUE: Multiple contiguous axial images were obtained through the brain without the use of intravenous contrast. Auto Exposure Controls were utilized during the CT exam to meet ALARA standards for radiation dose reduction. Comparison made to 12/02/2017. FINDINGS: There are diffuse atrophic changes. There are moderate low-density changes in the deep white matter. Ventricles show mild prominence compatible with age. There is low-density change in the hortensia, which may be due to old ischemic change. There is no subdural or epidural collection or acute appearing finding. Calvarial windows appear unremarkable. IMPRESSION: Atrophic changes and chronic ischemic changes are present as above. There is no acute hemorrhage or extra-axial fluid collection. Dictated on workstation # [id number] Dict: 01/01/19 1542 Trans: 01/01/19 1546 [id number] Interpreted by: NATALIA PALOMARES MD Electronically signed by: Departure Impression Primary Impression: Fall Qualified Codes: W19.XXXA - Unspecified fall, initial encounter Additional Impression: Alzheimer disease Qualified Codes: G30.1 - Alzheimer's disease with late onset; F02.80 - Dementia in other diseases classified elsewhere without behavioral disturbance Disposition: 01 HOME, SELF-CARE Condition: Improved Departure-Patient Inst. Decision time for Depature: 16:00 Referrals: GANGA GAN DO (PCP/Family) Primary Care Physician Patient Instructions: Preventing Falls in the Older Adult Add. Discharge Instructions: Activity as tolerated. You may give Tylenol 650 mg every 6 hours as needed for headache. Clear liquid diet for the next 4 hours, if no vomiting and tolerating, advance to bland diet as tolerated. Follow-up with your primary doctor if symptoms are not improving or worsen. Return to the emergency department for new, urgent health care needs. All discharge instructions reviewed with patient and/or family. Voiced understanding. EVIE MCKENNA Jan 01, 2019 16:05 POS
[2019-01-01 16:13] VITALS: BP 129/69
== END 2019-01-01 16:14 | disposition home or self-care (01) ==
LOC: EDUNIT# 14:22 → ER 14:23
DX: G30.9 Alzheimer's disease, unspecified (principal); F02.80 Dementia in other diseases classified elsewhere, unspecified severity, without behavioral disturbance, psychotic disturbance, mood disturbance, and anxiety; I10 Essential (primary) hypertension; E11.9 Type 2 diabetes mellitus without complications; I25.10 Atherosclerotic heart disease of native coronary artery without angina pectoris; E78.00 Pure hypercholesterolemia, unspecified; G47.30 Sleep apnea, unspecified; F32.9 Major depressive disorder, single episode, unspecified; R40.2142 Coma scale, eyes open, spontaneous, at arrival to emergency department; R40.2242 Coma scale, best verbal response, confused conversation, at arrival to emergency department; R40.2362 Coma scale, best motor response, obeys commands, at arrival to emergency department; Z85.828 Personal history of other malignant neoplasm of skin; Z99.89 Dependence on other enabling machines and devices; Z79.82 Long term (current) use of aspirin; Z87.891 Personal history of nicotine dependence; Z90.49 Acquired absence of other specified parts of digestive tract; Z95.1 Presence of aortocoronary bypass graft; W19.XXXA Unspecified fall, initial encounter; Y92.002 Bathroom of unspecified non-institutional (private) residence as the place of occurrence of the external cause
CPT/HCPCS: 70450

== ENCOUNTER 2019-09-14 17:41 | Emergency (ER) | payer MEDICARE ==
[~2019-09-14] VITALS: Ht 187 cm; Wt 86.1 kg
[~2019-09-14 17:41] MED LIST changes: -GLIM1TAB PO; +GLIM1TAB4 PO; -OMEP20CA13 PO; +OMEP20CA18 PO
--- NOTE | 2019-09-14 17:56 | ED General ---
General Chief Complaint: General Problems/Pain Stated Complaint: WEAKNESS Nursing Triage Note: PT PRESENTS TO ED VIA EMS FROM HOME WITH COMPLAINTS OF GENERALIZED WEAKNESS. PT REPORTS PT WAS UNABLE TO GET INTO BED LAST NIGHT SO HE LAYED ON THE FLOOR TILL MORNING. EMS REPORTS PT DECIDED TO CALL EMS BECAUSE HIS WEAKNESS DID NO IMPROVE THROUGHOUT THE DAY. EMS REPORTS PT WAS ABLE TO STAND AND WLAK TO THE EMS COT WITH ASSISTANCE. Nursing Sepsis Screen: No Definite Risk Source of Information: Patient Exam Limitations: No Limitations History of Present Illness Date Seen by Provider: Sep 14, 2019 Time Seen by Provider: 17:55 Initial Comments Alzheimer's patient from home presents to ER with general weakness and inability to walk since Tuesday of this week. He was unable to get into bed last night and subsequently slept on the floor in the hallway which he has done for 3 days. He denies any pain or other concerns. doesnt notice any SOB, CP, n/v. Timing/Duration: 3-4 Days Severity: Moderate Associated Systoms: Denies Symptoms Allergies and Home Medications Allergies Coded Allergies: No Known Drug Allergies (Unverified , 01/03/12) Home Medications Acetaminophen 500 Mg Tablet, 500-1,000 MG PO Q6H PRN for PAIN-MILD, (Reported) Alprazolam 0.25 Mg Tablet, 0.25 MG PO DAILY PRN for ANXIETY, (Reported) Aspirin 81 Mg Tablet.dr, 81 MG PO HS, (Reported) Atorvastatin Calcium 40 Mg Tablet, 40 MG PO HS, (Reported) Cefdinir 300 Mg Capsule, 300 MG PO BID Prescribed by: LUZ MARIA PEREZ on 12/02/172210 Cholecalciferol (Vitamin D3) 2,000 Unit Capsule, 2,000 UNIT PO DAILY, (Reported) Donepezil HCl 10 Mg Tablet, 10 MG PO DAILY, (Reported) Fexofenadine HCl 60 Mg Tablet, 60 MG PO DAILY PRN for ALLERGIES, (Reported) Glimepiride 1 Mg Tablet, 1 MG PO DAILY, (Reported) Losartan Potassium 50 Mg Tablet, 50 MG PO DAILY, (Reported) Omeprazole 20 Mg Capsule.dr, 20 MG PO DAILY, (Reported) Ondansetron 4 Mg Tab.rapdis, 4 MG PO Q4H Prescribed by: LUZ MARIA PEREZ on 12/02/172210 Sertraline HCl 50 Mg Tablet, 50 MG PO DAILY, (Reported) [Knee Injections] , INJ EVERY 6 MONTHS, (Reported) LEFT KNEE Patient Home Medication List Home Medication List Reviewed: Yes Review of Systems Review of Systems Constitutional: see HPI; No chills, No fever; other (ROS discussed with . ) EENTM: see HPI Respiratory: no symptoms reported; No cough, No dyspnea on exertion, No short of breath Cardiovascular: no symptoms reported; No chest pain, No edema, No syncope Genitourinary: no symptoms reported Musculoskeletal: no symptoms reported Skin: no symptoms reported Psychiatric/Neurological: No Symptoms Reported Hematologic/Lymphatic: No Symptoms Reported Immunological/Allergic: no symptoms reported Past Ioovlgw-Aitgzc-Vjthww Hx Patient Social History Alcohol Use: Occasionally Uses Recreational Drug Use: No Type Used: Cigarettes, Pipe Former Smoker, Quit: July 28, 1977 2nd Hand Smoke Exposure: No Recent Foreign Travel: No Contact w/Someone Who Travel: No Recent Infectious Disease Expo: No Recent Hopitalizations: Yes Physical Abuse: No Sexual Abuse: No Mistreated: No Fear: No Immunizations Up To Date Date of Pneumonia Vaccine: Dec 05, 2008 Date of Influenza Vaccine: Dec 28, 2011 Past Medical History Surgeries: Yes Abdominal, Appendectomy, Bowel Surgery, Cardiac, CABG, Gallbladder Respiratory: Yes Sleep Apnea Currently Using CPAP: Yes Currently Using BIPAP: No Cardiac: Yes (CABG) Coronary Artery Disease, High Cholesterol, Hypertension Neurological: Yes Dementia Genitourinary: Yes (URETERAL STENT) Gastrointestinal: Yes (BOWEL RESECTION FOR RUPTURED DIVERTICULUM; S/P DOMINIQUE AND APPY) Diverticulosis, Gall Bladder Disease Musculoskeletal: Yes (knee pain --knees injected 04-02-10 07-06-10 01-13-11) Arthritis Endocrine: Yes Diabetes, Non-Insulin dep HEENT: No Cancer: Yes Skin Did You Recieve Any Treatments: Yes What Type of Treatment Did You: Surgical Intervention Psychosocial: Yes (DEMENTIA) Depression Integumentary: Yes (SKIN CANCER) Blood Disorders: No Family Medical History No Pertinent Family Hx Physical Exam Vital Signs Vital Signs - First Documented 09/14/19 17:44 Temp 37.0 Pulse 76 Resp 18 B/P (MAP) 133/69 (90) Pulse Ox 99 Capillary Refill : Less Than 3 Seconds Height, Weight, BMI Height: 5'9.00" Weight: 180lbs. 2.0oz. [id number]; 24.00 BMI Method:Stated General Appearance: No Apparent Distress, WD/WN, Other (jovial, very pleasant but obviously very poor memory. States he like to just go home as he feels fine. However he's been so weak that he has had to sleep on the floor for the past 3 days because he is unable to get in the bed) Eyes: Bilateral Eye Normal Inspection, Bilateral Eye PERRL Neck: Full Range of Motion, Normal Inspection; No JVD Respiratory: No Normal Breath Sounds; No Accessory Muscle Use, No Respiratory Distress; No Crackles, No Decreased Breath Sounds Cardiovascular: Regular Rate, Rhythm, Normal Peripheral Pulses Gastrointestinal: Normal Bowel Sounds, Non Tender, Soft Extremity: Normal Capillary Refill, Normal Inspection Neurologic/Psychiatric: Alert, Oriented x3 Skin: Normal Color, Warm/Dry Progress/Results/Core Measures Suspected Sepsis Recent Fever Within 48 Hours: No Infection Criteria Present: None New/Unexplained Altered Menta: No Sepsis Screen: No Definite Risk SIRS Temperature: Pulse: 76 Respiratory Rate: 18 Laboratory Tests 09/14/19 17:45: White Blood Count 8.9 Blood Pressure 133 /69 Mean: 90 Laboratory Tests 09/14/19 17:45: Creatinine 1.52H, INR Comment 1.0, Platelet Count 160, Total Bilirubin 1.1H Results/Orders Lab Results Laboratory Tests Test 09/14/19 17:45 09/14/19 18:51 Range/Units White Blood Count 8.9 4.3-11.0 10^3/uL Red Blood Count 4.14 L 4.35-5.85 10^6/uL Hemoglobin 12.5 L 13.3-17.7 G/DL Hematocrit 37 L 40-54 % Mean Corpuscular Volume 89 80-99 FL Mean Corpuscular Hemoglobin 30 25-34 PG Mean Corpuscular Hemoglobin Concent 34 32-36 G/DL Red Cell Distribution Width 13.4 10.0-14.5 % Platelet Count 160 130-400 10^3/uL Mean Platelet Volume 9.5 7.4-10.4 FL Neutrophils (%) (Auto) 79 H 42-75 % Lymphocytes (%) (Auto) 13 12-44 % Monocytes (%) (Auto) 6 0-12 % Eosinophils (%) (Auto) 2 0-10 % Basophils (%) (Auto) 0 0-10 % Neutrophils # (Auto) 7.0 1.8-7.8 X 10^3 Lymphocytes # (Auto) 1.2 1.0-4.0 X 10^3 Monocytes # (Auto) 0.6 0.0-1.0 X 10^3 Eosinophils # (Auto) 0.1 0.0-0.3 10^3/uL Basophils # (Auto) 0.0 0.0-0.1 10^3/uL Prothrombin Time 13.8 12.2-14.7 SEC INR Comment 1.0 0.8-1.4 Sodium Level 138 135-145 MMOL/L Potassium Level 3.9 3.6-5.0 MMOL/L Chloride Level 102 98-107 MMOL/L Carbon Dioxide Level 24 21-32 MMOL/L Anion Gap 12 5-14 MMOL/L Blood Urea Nitrogen 21 H 7-18 MG/DL Creatinine 1.52 H 0.60-1.30 MG/DL Estimat Glomerular Filtration Rate 44 BUN/Creatinine Ratio 14 Glucose Level 119 H 70-105 MG/DL Calcium Level 9.8 8.5-10.1 MG/DL Corrected Calcium 9.7 8.5-10.1 MG/DL Total Bilirubin 1.1 H 0.1-1.0 MG/DL Aspartate Amino Transf (AST/SGOT) 64 H 5-34 U/L Alanine Aminotransferase (ALT/SGPT) 148 H 0-55 U/L Alkaline Phosphatase 238 H 40-136 U/L Total Protein 6.8 6.4-8.2 GM/DL Albumin 4.1 3.2-4.5 GM/DL Procalcitonin 0.19 H <0.10 NG/ML Urine Color YELLOW Urine Clarity CLEAR Urine pH 6.0 5-9 Urine Specific [place] 1.010 L 1.016-1.022 Urine Protein NEGATIVE NEGATIVE Urine Glucose (UA) NEGATIVE NEGATIVE Urine Ketones NEGATIVE NEGATIVE Urine Nitrite NEGATIVE NEGATIVE Urine Bilirubin NEGATIVE NEGATIVE Urine Urobilinogen 2.0 < = 1.0 MG/DL Urine Leukocyte Esterase NEGATIVE NEGATIVE Urine RBC (Auto) NEGATIVE NEGATIVE Urine RBC RARE /HPF Urine WBC NONE /HPF Urine Squamous Epithelial Cells RARE /HPF Urine Crystals NONE /LPF Urine Bacteria NEGATIVE /HPF Urine Casts NONE /LPF Urine Mucus NEGATIVE /LPF Urine Culture Indicated NO My Orders Orders - MARCUS DIETRICH APRN Procalcitonin (Pct) (09/14/19 17:43) Cbc With Automated Diff (09/14/19 17:43) Comprehensive Metabolic Panel (09/14/19 17:43) Protime With Inr (09/14/19 17:43) Ua Culture If Indicated (09/14/19 17:43) Ed Iv/Invasive Line Start (09/14/19 17:43) Chest 1 View, Ap/Pa Only (09/14/19 17:43) Pelvis (09/14/19 17:43) Ct Head Wo (09/14/19 17:43) Vital Signs/I&O 09/14/19 17:44 Temp 37.0 Pulse 76 Resp 18 B/P (MAP) 133/69 (90) Pulse Ox 99 Capillary Refill : Less Than 3 Seconds Blood Pressure Mean: 90 Diagnostic Imaging Diagonstic Imaging: CT Comments NAME: [facility] REC#: [id number] PT STATUS: REG ER : 1935 PHYSICIAN: MARCUS DIETRICH APRN ADMIT DATE: 09/14/19/ER Draft Date of Exam:09/14/19 CT HEAD WO PROCEDURE: CT head without contrast. TECHNIQUE: Multiple contiguous axial images were obtained through the brain without the use of intravenous contrast. Auto Exposure Controls were utilized during the CT exam to meet ALARA standards for radiation dose reduction. INDICATION: Weakness. COMPARISON: Prior examination from 01/01/2019. FINDINGS: There is prominence of the ventricles and sulci. There is no hydrocephalus or cerebral edema. There is no midline shift or mass-effect. There is no intracranial mass, hemorrhage, or extra-axial fluid collection. There is some diffuse decreased attenuation of the periventricular white matter which is nonspecific. The visualized paranasal sinuses and mastoid air cells are clear. There are no regional areas of decreased attenuation appreciated to suggest an acute CVA. IMPRESSION: 1. No acute intracranial process. 2. Age-appropriate atrophy. 3. Decreased attenuation of the periventricular white matter which is nonspecific, however, likely reflects senescent change and/or chronic small vessel ischemic disease. Dictated on workstation # [id number] Dict: 09/14/19 1836 Trans: 09/14/19 1843 [id number] Interpreted by: FRANCK MORATAYA MD Electronically signed by: Departure Communication (Admissions) Liver enzymes are a bit more elevated today but consistent with elevations in 2018. EKG NSR, no cardiomegaly, no pulmonary edema. 2011-vitals have been unremarkable here. reports that he had some irregular sounding heart rhythm at home that sounded fast. I discussed with her that per haps this could represent a paroxysmal atrial fibrillation. His workup here is unremarkable. His EKG here reveals only a right bundle-branch block that is normal sinus without ectopy and a normal rate. I was able to get him up with minimal assistance out of bed, he can walk out the door into the hallway and back to bed just by holding onto my hand. He was then able to walk from the bed out into the hallway and back to bed without any assistance. I asked the how his gait looks and she states it seems normal. She is comfortable taking him home though I did offer admission here for further workup/observation. Impression Primary Impression: General medical exam Disposition: HOME, SELF-CARE Condition: Stable Departure-Patient Inst. Decision time for Depature: 20:13 Referrals: GANGA GAN DO (PCP/Family) Primary Care Physician Patient Instructions: NO INSTRUCTIONS GIVEN Add. Discharge Instructions: His irregular heart could have represented atrial fibrillation. This will warrant a referral to cardiology by Dr. Gan or Dr. Gan may do this workup himself. If he notices any worsening symptoms, inability to walk or anything else that concerns you, return to the emergency room regardless of time of day as we are here 24 [address]. His CT scan and blood work here shows chronic kidney disease which is the same as it was in 2018 and a slight elevation of his liver enzymes similar to 2018 as well. Copy Copies To 1: GANGA GAN PETER J CHEMICAL PREPARER Sep 14, 2019 17:56
[2019-09-14 18:03] LABS: BASOPHILS % (AUTO) 0 % (0-10); EOSINOPHILS # (AUTO) 0.1 10^3/uL (0.0-0.3); EOSINOPHILS % (AUTO) 2 % (0-10); HEMATOCRIT 37 % (40-54); HEMOGLOBIN 12.5 G/DL (13.3-17.7); LYMPHOCYTES # (AUTO) 1.2 X 10^3 (1.0-4.0); LYMPHOCYTES % (AUTO) 13 % (12-44); MEAN CORPUSCULAR HEMOGLOBIN 30 PG (25-34); MEAN CORPUSCULAR HGB CONC 34 G/DL (32-36); MEAN CORPUSCULAR VOLUME 89 FL (80-99); MEAN PLATELET VOLUME 9.5 FL (7.4-10.4); MONOCYTES # (AUTO) 0.6 X 10^3 (0.0-1.0); MONOCYTES % (AUTO) 6 % (0-12); NEUTROPHILS % (AUTO) 79 % (42-75); PLATELET COUNT 160 10^3/uL (130-400); RED CELL DISTRIBUTION WIDTH 13.4 % (10.0-14.5); WHITE BLOOD COUNT 8.9 10^3/uL (4.3-11.0)
[2019-09-14 18:12] LABS: ALBUMIN 4.1 GM/DL (3.2-4.5)
[2019-09-14 18:13] LABS: POTASSIUM 3.9 MMOL/L (3.6-5.0)
[2019-09-14 18:14] LABS: CALCIUM 9.8 MG/DL (8.5-10.1)
[2019-09-14 18:15] LABS: PROTHROMBIN TIME PATIENT 13.8 SEC (12.2-14.7); TOTAL PROTEIN 6.8 GM/DL (6.4-8.2)
[2019-09-14 18:17] LABS: BILIRUBIN,TOTAL 1.1 MG/DL (0.1-1.0)
[2019-09-14 18:19] LABS: CREATININE SERUM 1.52 MG/DL (0.60-1.30)
--- NOTE | 2019-09-14 18:45 | Diagnostic Imaging Report ---
PROCEDURE: CT head without contrast. TECHNIQUE: Multiple contiguous axial images were obtained through the brain without the use of intravenous contrast. Auto Exposure Controls were utilized during the CT exam to meet ALARA standards for radiation dose reduction. INDICATION: Weakness. COMPARISON: Prior examination from 01/01/2019. FINDINGS: There is prominence of the ventricles and sulci. There is no hydrocephalus or cerebral edema. There is no midline shift or mass-effect. There is no intracranial mass, hemorrhage, or extra-axial fluid collection. There is some diffuse decreased attenuation of the periventricular white matter which is nonspecific. The visualized paranasal sinuses and mastoid air cells are clear. There are no regional areas of decreased attenuation appreciated to suggest an acute CVA. IMPRESSION: 1. No acute intracranial process. 2. Age-appropriate atrophy. 3. Decreased attenuation of the periventricular white matter which is nonspecific, however, likely reflects senescent change and/or chronic small vessel ischemic disease. Dictated by: Dictated on workstation # [id number]
[2019-09-14 19:00] LABS: BILIRUBIN,URINE NEGATIVE (NEGATIVE); CLARITY,URINE CLEAR; COLOR,URINE YELLOW; GLUCOSE, URINE (UA) NEGATIVE (NEGATIVE); KETONES,URINE NEGATIVE (NEGATIVE); LEUKOCYTE ESTERASE ,URINE NEGATIVE (NEGATIVE); NITRITE,URINE NEGATIVE (NEGATIVE); PROTEIN,URINE NEGATIVE (NEGATIVE)
--- NOTE | 2019-09-14 19:04 | Diagnostic Imaging Report ---
INDICATION: Weakness. EXAMINATION: Single view of the chest was obtained. FINDINGS: The heart size is normal. The lungs are clear. There is no pleural effusion or pneumothorax. There has been a previous median sternotomy. IMPRESSION: No acute cardiopulmonary abnormality. Dictated by: Dictated on workstation # [id number]
--- NOTE | 2019-09-14 19:05 | Diagnostic Imaging Report ---
INDICATION: Weakness. EXAMINATION: Pelvis. FINDINGS: The bony pelvis is intact. There are mild degenerative changes in the spine and hips. There is no fracture or dislocation. Soft tissues are unremarkable. IMPRESSION: Mild degenerative changes otherwise unremarkable. Dictated by: Dictated on workstation # [id number]
[2019-09-14 19:06] LABS: BACTERIA,URINE NEGATIVE /HPF; RBC,URINE RARE /HPF; SQUAMOUS EPITHELIAL CELL,UR RARE /HPF
[2019-09-14 20:18] VITALS: BP 132/67
--- OUTSIDE RECORDS SUMMARY | 2019-09-14 20:36 | XMS REPORT | Encounter Summary ---
Author Author Organization Address Unknown Phone Unavailable Care Team Providers Care Silk Winding Machine Operator Name Role Phone Benjie Montano PCP Reason for Referral * Diagnostic Imaging (Routine) Referred By Contact Referred To Contact Status Reason Specialty Diagnoses / Procedures Olman Frost MD [address] [place] [address] Closed Diagnoses Atherosclerosis of red devil coronary artery of red devil heart without angina pectoris P rocedures Electrocardiogram (ECG) Reason for Visit * Reason Comments Coronary Artery Disease Encounter Details Care Team Description Date Type Department Olman Frost MD [address] [place] [address] [phone] Atherosclerosis of red devil coronary arter y of red devil heart without angina pectoris (Primary Dx); Essential hypertension; Mixed hyperlipidemia; Obstructive sleep apnea; Type 2 diabetes mellitus with stage 3 chronic kidney disease, without long-term current use of insulin (HCC); S/P CABG (coronary artery bypass graft) 01/10/2019 Office Visit [facility] [address] [place] [address] Social History Date Tobacco Use Types Packs/Day Years Used Quit: 07/19/1977 Former Smoker Cigarettes 2 20 Smokeless Tobacco: Never Used Drinks/Week oz/Week Comments Alcohol Use occas. Yes Sex Assigned at Date Recorded Not on file Industry Job Start Date Occupation Not on file Not on file Not on file Travel End Travel History Travel Start No recent travel history available. documented as of this encounter Last Filed Vital Signs Reading Time Taken Comments Vital Sign 124/69 01/10/2019 12:55 PM DATA BASE DESIGN ANALYST lowest Blood Pressure 71 01/10/2019 12:55 PM DATA BASE DESIGN ANALYST reg Pulse - - Temperature - - Respiratory Rate - - Oxygen Saturation - - Inhaled Oxygen Concentration 89.8 kg (198 lb) 01/10/2019 12:54 PM DATA BASE DESIGN ANALYST Weight 170.2 cm (5' 7") 01/10/2019 12:54 PM DATA BASE DESIGN ANALYST Height 31.01 01/10/2019 12:54 PM DATA BASE DESIGN ANALYST Body Mass Index documented in this encounter Patient Instructions * Patient Instructions* Mignon Jones RN - 01/10/2019 12:00 PM DATA BASE DESIGN ANALYST Medication Instructions: No medication changes made today. Please continue your current medical regimen. Follow up: In about [address] Frost, unless you have cardiac concerns b efore then. Please call the Nurse Line at [phone] with any questions or concerns. For any [facility] scheduling questions, please call [phone]. At [facility], high quality patient care is our top priority. To ensure our cardiovascular standards are continuously met, you may receive a survey via [place] or text message, and we ask that you please take the time to fill it out. We strive to ensure you are very satisfied with every visit. Thank you in advance for taking the time to fill this out. Thanks, KIMANI Crow BASE DESIGN ANALYST documented in this encounter Progress Notes * Olman Frost MD - 01/10/2019 12:00 PM DATA BASE DESIGN ANALYST [facility] Magy Appointment Date: 01/10/2019 Benjie Montano DO [address] [place] [phone] RE: Carl Childers : 1935 Visit provider: Olman Frost MD Dear Benjie Montano DO, I had the pleasure of seeing Carl Childers in the office today. He is a(n) 83 y.o. male and presents with the following chief complaint(s): Coronary Artery Disease HPI: He seems to be doing well. He denies chest pains or shortness of breath or palp itations or syncope or presyncope. His says that he is quite unstable on h is feet and does trip and fall quite a bit. She says that he has Alzheimer's an d is extremely inactive at this point in time. He had coronary bypass surgery in August 2007. He was having chest pains at that time. He had an abnormal myocardial perfusion study. He ended up with an TORRES to the LAD, saphenous vein graft to the posterior descending artery, and a seque ntial saphenous vein graft to 2 obtuse marginal vessels. In 2012 a PET study sh owed a localized area of nontransmural injury and minimal associated ischemia la terally. His LVEF was 45%. He has type 2 diabetes, dyslipidemia, hypertension, mild renal artery stenosis, orthostatism, and Alzheimer's . Patient Active Problem List Diagnosis SNOMED CT(R) Diabetic peripheral neuropathy Essential hypertension ESSENTIAL HYPERTENSION Nuclear senile cataract, bilateral NUCLEAR SENILE CATARACT Generalized osteoarthritis of multiple sites DEGENERATIVE JOINT DISEASE INVO LVING MULTIPLE JOINTS Atherosclerosis of renal artery (HCC) ARTERIOSCLEROSIS OF RENAL ARTERY Esophageal reflux GASTROESOPHAGEAL REFLUX DISEASE Peripheral vascular disease (HCC) PERIPHERAL VASCULAR DISEASE Occlusion and stenosis of carotid artery CAROTID ARTERY OCCLUSION Obstructive sleep apnea OBSTRUCTIVE SLEEP APNEA SYNDROME Benign prostatic hypertrophy BENIGN PROSTATIC HYPERTROPHY WITHOUT OUTFLOW OB STRUCTION Benign colonic polyp BENIGN NEOPLASM OF COLON Mixed hyperlipidemia MIXED HYPERLIPIDEMIA Coronary atherosclerosis of red devil coronary vessel CORONARY ARTERIOSCLEROSIS IN [place] ARTERY Diabetes mellitus, type 2 (HCC) TYPE 2 DIABETES MELLITUS S/P CABG (coronary artery bypass graft) HISTORY OF CORONARY ARTERY BYPASS GR AFTING Late onset Alzheimer's disease without behavioral disturbance (HCC) PRIMARY DEGENERATIVE DEMENTIA OF THE ALZHEIMER TYPE, SENILE ONSET, UNCOMPLICATED S/P renal artery angioplasty HISTORY OF ANGIOPLASTY Past Medical History: Diagnosis Date Anxiety Benign colonic polyp 01/2010 Benign prostatic hypertrophy Carotid artery stenosis Coronary atherosclerosis of red devil coronary vessel S/P CABG Diabetes mellitus, type 2 (HCC) Diabetic peripheral neuropathy Diverticulosis of large intestine 01/2010 DJD (degenerative joint disease) Erectile dysfunction of non-organic origin Esophageal reflux 05/04/2011 Essential hypertension Former smoker Generalized osteoarthritis of multiple sites GERD (gastroesophageal reflux disease) 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 He had the Aricept increased to 10 mg daily and has been tolerating it w ell. Family feels he is stable at this time. Discussed driving safety and medica tion management. Last Assessment & Plan: Stable at this time. Recommended he continue current treatment plan. Stay engaged mentally, physically and socially. Plan: Stay active mentally, physically and socially. Redirect and reassure as needed. Drive to familiar areas only. Recommend a GPS wildlife removal specialist should be installed on phone to help track if needed for navigational issues. Follow up with Dr. Mtahew as scheduled in September. Mixed hyperlipidemia Nuclear senile cataract, bilateral 05/2009 Obstructive sleep apnea Occlusion and stenosis of carotid artery 01/27/2010 Osteoporosis Peripheral vascular disease (HCC) PFO (patent foramen ovale) Pulmonary nodule Renal artery stenosis Description: s/p stent Squamous cell carcinoma of skin 2001 Description: s/p resection Vitamin D deficiency Past Surgical History: Procedure Laterality Date APPENDECTOMY 1998 COLECTOMY 1998 Colon resection CORONARY ARTERY BYPASS GRAFT 08/31/2007 TORRES to LAD, SVG to to sequential to OM1 and OM2. SVG to PDA with a long vein patch anastomosis across the PDA lesion. DENTAL SURGERY Dental Surgery; Description: 2 infected molars extracted RENAL ARTERY STENT Bilateral 02/13/2007 Bilateral renal stent -Right Renal Atery from 99% tp 0% post 5.5 x 18mm Herculi nk Plus Stent post-dilated with a 6.5 mm balloon secondary to marked poststenoti c dilatation. SKIN CANCER EXCISION 2001 Squamous cell Cancer Removal (2001) Final Medications: Current Outpatient Medications Medication Sig Dispense Refill acetaminophen (TYLENOL) 100 mg/mL suspension Take 10 mg/kg by mouth every 4 (four) hours as needed for fever. ALPRAZolam (XANAX) 0.25 MG tablet Take 0.25 mg by mouth nightly as needed fo r sleep. aspirin 81 MG EC tablet take 1 tablet (81MG) by oral route every day 30 0 atorvastatin (LIPITOR) 40 MG tablet TAKE ONE TABLET BY MOUTH EVERY EVENING 9 0 tablet 3 cholecalciferol, vitamin D3, (VITAMIN D3) 1,000 unit capsule Take 3 tablets by oral route daily 30 0 donepezil (ARICEPT) 5 MG tablet Take 5 mg by mouth nightly. fexofenadine (TOÑO) 180 MG tablet take 1 tablet by oral route every day, as needed. 30 0 glimepiride (AMARYL) 1 MG tablet Take 1 mg by mouth every morning before heaven akfast. losartan-hydrochlorothiazide (HYZAAR) 100-12.5 mg per tablet Take 1 tablet b y mouth daily. memantine (NAMENDA) 10 MG tablet Take 10 mg by mouth 2 (two) times a day. omeprazole (PRILOSEC OTC) 20 MG tablet Take one tablet by mouth daily 0 0 No current facility-administered medications for this visit. Allergies Allergen Reactions Lisinopril Reaction: cough; Niacin Thrombocytopenia Adverse Reaction Reaction: reduced platelets; Comment: Niaspan Extended-Release Family History Problem Relation Age of Onset Coronary artery disease Father Diabetes type II Mother Dementia Mother Stroke Mother Dementia Sister Coronary artery disease Brother Diabetes type II Maternal Grandmother Hypertension Brother Social History: Social History Tobacco Use Smoking status: Former Smoker Packs/day: 2.00 Years: 20.00 Pack years: 40.00 Types: Cigarettes Last attempt to quit: 07/19/1977 Years since quittin.5 Smokeless tobacco: Never Used Substance Use Topics Alcohol use: Yes Comment: occas. Drug use: No Review of Systems Constitution: Positive for malaise/fatigue. Negative for fever and night sweats. HENT: Negative for nosebleeds. Cardiovascular: Negative for chest pain, claudication, cyanosis, dyspnea on exer tion, irregular heartbeat, leg swelling, near-syncope, orthopnea, palpitations, paroxysmal nocturnal dyspnea and syncope. Respiratory: Negative for cough, hemoptysis, shortness of breath, sleep disturba nces due to breathing, snoring, sputum production and wheezing. Endocrine: Negative for cold intolerance and polydipsia. Hematologic/Lymphatic: Does not bruise/bleed easily. Musculoskeletal: Positive for joint pain and muscle cramps. Negative for myalgia s. Gastrointestinal: Negative for dysphagia, hematochezia, nausea and vomiting. Genitourinary: Negative for hematuria. Neurological: Positive for disturbances in coordination, excessive daytime sleep iness, dizziness, focal weakness, light-headedness and loss of balance. Negative for brief paralysis, numbness, paresthesias and weakness. Vital Signs 01/10/19 1254 01/10/19 1255 BP: 126/78 124/69 Pulse: 73 71 Weight: 89.8 kg (198 lb) Height: 1.702 m (5' 7") BMI: Body mass index is 31.01 kg/m. Physical Exam Constitutional: He is oriented to person, place, and time. He appears well-devel oped and well-nourished. No distress. HENT: Head: Normocephalic and atraumatic. Eyes: Pupils are equal, round, and reactive to light. Conjunctivae are normal. N o scleral icterus. Neck: Neck supple. No tracheal deviation present. Cardiovascular: Normal rate, regular rhythm, normal heart sounds and intact dist al pulses. Exam reveals no S3 and no S4. Pulmonary/Chest: Effort normal and breath sounds normal. No stridor. No respirat ory distress. He has no wheezes. He has no rales. He exhibits no tenderness. Abdominal: Soft. Bowel sounds are normal. He exhibits no distension and no mass. There is no rebound and no guarding. Musculoskeletal: He exhibits no tenderness or deformity. Lymphadenopathy: He has no cervical adenopathy. Neurological: He is alert and oriented to person, place, and time. No cranial ne rve deficit. Skin: Skin is warm and dry. No rash noted. He is not diaphoretic. No erythema. N o pallor. Psychiatric: He has a normal mood and affect. His behavior is normal. Nursing note and vitals reviewed. Cholesterol Date Value 01/10/2019 160 mg/dL 07/19/2017 171 05/13/2016 115 HDL Cholesterol (mg/dL) Date Value 01/10/2019 31 (A) 07/19/2017 31 (A) 05/13/2016 39 Triglycerides (mg/dL) Date Value 01/10/2019 319 (A) 07/19/2017 301 (A) 05/13/2016 135 LDL Cholesterol Date/Time Value Ref Range Status 01/10/2019 12:56 PM 65 mg/dL Final 07/19/2017 03:11 PM 79 mg/dL Final 05/13/2016 10:42 AM 49 mg/dL Final EKG: Normal Sinus Rhythm, RBBB Encounter Diagnoses Name Primary? Atherosclerosis of red devil coronary artery of red devil heart without angina pec toris Yes Essential hypertension Mixed hyperlipidemia Obstructive sleep apnea Type 2 diabetes mellitus with stage 3 chronic kidney disease, without long-t erm current use of insulin (HCC) S/P CABG (coronary artery bypass graft) Impression and Plan: 1. Coronary artery disease: He is asymptomatic. He had chest pains prior to c oronary bypass surgery. I did not think testing was necessary at this point in time. 2. Dyslipidemia: He is on appropriate-intensity statin therapy with LDL within normal limits. 3. Hypertension: Blood pressure is satisfactory today. 4. Alzheimer's: He is still living with his . 5. Orthostatism: He has some lightheadedness when he first stands. 6. Activity: I did encourage that they continue with their membership at an ex ercise facility that they belong to. We talked about different levels of activi ty that would be appropriate for him. Treatment goals, progress and next steps, as above, were discussed and mutually agreed upon with the patient/family. Thank you for allowing me to participate in Carl Childers's care. If I can be of any further assistance, please do not hesitate to contact me. Sincerely, Olman Frost MD /leonora BASE DESIGN ANALYST documented in this encounter Plan of Treatment Not on filedocumented as of this encounter Procedures Comments Procedure Name Priority Date/Time Associated Diag nosis LAB SUMMARY 02/07/2019 2:41 PM DATA BASE DESIGN ANALYST POCT LIPID PANEL Routine 01/10/2019 Atheroscleros is of red devil 12:56 PM DATA BASE DESIGN ANALYST coronary artery of red devil heart without angina pectoris ECG Routine 01/10/2019 Atherosclerosis of red devil 12:55 PM DATA BASE DESIGN ANALYST coronary artery of red devil heart without angina pectoris documented in this encounter Results * LAB SUMMARY (02/07/2019 2:41 PM DATA BASE DESIGN ANALYST) Narrative Performed At This result has an attachment that is n ot available. Ordered by an unspecified provider. * POCT Lipid Panel (01/10/2019 12:56 PM DATA BASE DESIGN ANALYST) Cholesterol 160 mg/dL HDL Cholesterol 31 (A) 35 - 70 mg/dL Triglycerides 319 (A) 40 - 160 mg/dL LDL Cholesterol 65 mg/dL Non-HDL 129 Cholesterol Cholesterol/HDL 2.1 Ratio Glucose 241 mg/dL Specimen Blood * Electrocardiogram (ECG) (01/10/2019 12:55 PM DATA BASE DESIGN ANALYST) QRSd 140 [facility] QT 424 [facility] QTC 461 [facility] ECGHR 71 [facility] ECGPR 177 [facility] Specimen Narrative Performed At [facility] Test Date: 2019-01-10 Pat Name: CARL CHILDERS Department: [facility] Room: Gender: Male Medicare Biller: [id number] : 1935 Requested By: OLMAN FROST Order Number: [id number] Reading MD: olman frost Measurements Intervals [place] Rate: 71 P: 34 DE: 177 QRS: 0 QRSD: 140 T: 30 QT: 424 QTc: 461 Interpretive Statements Sinus rhythm Right bundle branch block Electronically Signed On 01-15-2019 9:2 5:18 DATA BASE DESIGN ANALYST by olman frost Procedure Note Interface, External Ris In - 01/15/2019 9:25 AM DATA BASE DESIGN ANALYST [facility] [place] Test Date: 2019-01-10 Pat Name: CARL CHILDERS Department[facility] Room: Gender: Male Medicare Biller: [id number] : 1935 Requested By: OLMAN FROST Order Number: [id number] Reading MD: olman frost Measurements Intervals [place] Rate: 71 P: 34 DE: 177 QRS: 0 QRSD: 140 T: 30 QT: 424 QTc: 461 Interpretive Statements Sinus rhythm Right bundle branch block Electronically Signed On 01-15-2019 9:25:18 DATA BASE DESIGN ANALYST by olman frost Performing Organization Address City/State/Zipcode Ph one Number [facility] documented in this encounter Visit Diagnoses Diagnosis Atherosclerosis of red devil coronary edwina ry of red devil heart without angina pectoris Essential hypertension Unspecified essential hypertension Mixed hyperlipidemia Obstructive sleep apnea Obstructive sleep apnea (adult) ([facility]) Type 2 diabetes mellitus with stage 3 c hronic kidney disease, without long-term current use of insulin ([facility]) S/P CABG (coronary artery bypass graft) Postsurgical aortocoronary bypass statu s documented in this encounter
--- OUTSIDE RECORDS SUMMARY | 2019-09-14 20:36 | XMS REPORT | Encounter Summary ---
Author Author [facility] Organization [facility] Address Unknown Phone Unavailable Care Team Providers Care Cras Name Role Phone Benjie Montano PCP Encounter Details Care Team Description Date Type Department Olman Holloway MD [address] [place] [address] [phone] 06/08/2017 Documentation [facility] [address] [place] [address] Social History Date Tobacco Use Types Packs/Day Years Used Former Smoker Drinks/Week oz/Week Comments Alcohol Use weekly Yes Sex Assigned at Date Recorded Not on file Industry Job Start Date Occupation Not on file Not on file Not on file Travel End Travel History Travel Start No recent travel history available. documented as of this encounter Plan of Treatment Not on filedocumented as of this encounter Visit Diagnoses Not on filedocumented in this encounter
--- OUTSIDE RECORDS SUMMARY | 2019-09-14 20:36 | XMS REPORT | Encounter Summary ---
Author Author [facility] Organization [facility] Address Unknown Phone Unavailable Care Team Providers Care Concert Singer Name Role Phone Benjie Montano PCP Reason for Visit * Reason Comments Other Encounter Details Care Team Description Date Type Department Stephania Whitaker RN [facility] [address] [place] [address] Other 05/26/2016 Refill [facility] [address] [facility] [address] [place] [address] Social History Date Tobacco Use Types Packs/Day Years Used Former Smoker Drinks/Week oz/Week Comments Alcohol Use weekly Yes Sex Assigned at Date Recorded Not on file Industry Job Start Date Occupation Not on file Not on file Not on file Travel End Travel History Travel Start No recent travel history available. documented as of this encounter Miscellaneous Notes * Telephone Encounter - Joseluis Torres LPN - 05/27/2016 11:43 AM CDT ARIADNA 05/2016, refill sent. documented in this encounter Plan of Treatment Not on filedocumented as of this encounter Visit Diagnoses Not on filedocumented in this encounter
--- OUTSIDE RECORDS SUMMARY | 2019-09-14 20:36 | XMS REPORT | Encounter Summary ---
Author Author [facility] Organization [facility] Address Unknown Phone Unavailable Care Team Providers Care Pantograph Engraver Name Role Phone Benjie Montano PCP Reason for Referral * Diagnostic Imaging (Routine) Referred By Contact Referred To Contact Status Reason Specialty Diagnoses / Procedures Olman Frost MD [address] [place] [address] Closed Diagnoses CAD in [place] artery P rocedures Electrocardiogram (ECG) Reason for Visit * Reason Comments Coronary Artery Disease Encounter Details Care Team Description Date Type Department Olman Frost MD [address] [place] [address] [phone] CAD in [place] artery (Primary Dx); Gastroesophageal reflux disease, esophagitis presence not specified; Obstructive sleep apnea; Essential hypertension; Atherosclerosis of renal artery (HCC); Peripheral vascular disease (HCC); Atherosclerosis of [place] coronary artery of [place] heart without angina pectoris; Hyperlipidemia, unspecified hyperlipidemia type 05/13/2016 Office Visit [facility] [address] [place] [address] Social History Date Tobacco Use Types Packs/Day [...] Signs Reading Time Taken Comments Vital Sign 100/60 05/13/2016 10:41 AM PUMP INSTALLER Blood Pressure 64 05/13/2016 10:41 AM PUMP INSTALLER reg Pulse - - Temperature - - Respiratory Rate - - Oxygen Saturation - - Inhaled Oxygen Concentration - - Weight - - Height - - Body Mass Index documented in this encounter Patient Instructions * Patient Instructions* Birdie Hickey RN - 05/13/2016 10:45 AM PUMP INSTALLER My name is Birdie and I am one of Dr. Frost's Nurses. Medication changes today: 1. STOP Metoprolol after today *Check your blood pressure at least a few times a week, record these levels and call us in about 2-3 weeks with those results. *Drink plenty of water- especially in the morning, aim for at least 4-6 glasses of fluid daily. *Continue your working out and your other medications as currently prescribed. O f specific note- any medications for memory management will be fine and will not affect your heart as it is currently nice and strong. Follow up: in 1 year, we'll call to schedule this in about [address] [facility] Scheduling line for appointment questions: [phone] Direct nurse line: [phone] in case of questions, concerns or changes in you r cardiac condition INSTALLER documented in this encounter Progress Notes * Olman Frost MD - 05/13/2016 10:45 AM PUMP INSTALLER [facility] Appointment Date: 05/13/2016 Benjie Montano DO [address] [place] [id number] RE: Carl Childers : 1935 Visit provider: Olman Frost MD Dear Benjie Montano DO: I had the pleasure of seeing Carl Childers in the office today. He is an 81-year-o ld male and presents with the following chief complaints: Coronary artery disea se. HPI: This man has a history of coronary artery disease with bypass surgery in August 24. At that time, he was having chest pains. He had a markedly abnormal myocar dial perfusion study. He had a TORRES to the LAD and a saphenous vein graft seque ntially to obtuse marginal 1 and obtuse marginal 2. He also had a saphenous vei n to the posterior descending artery. In 2013, a PET study showed a localized a marzena of nontransmural injury and minimal associated ischemia laterally. His LVEF was 45%. He has not had any stress testing since then. He has a history of type 2 diabetes, dyslipidemia, hypertension, and mild renal artery stenosis. He denies chest pains, shortness of breath, or palpitations. He is somewhat lig htheaded when he first stands up. His indicates that he fell in [place] a couple of months ago. The patient himself cannot remember that. Recently, he has had a slow heart rate and the Toprol dosage was cut in half. He has been having problems with memory. He sees a neurologist and he has been diagnosed with mild cognitive dysfunction. In addition, he has depression and i s seeing a psychiatrist about that. Patient Active Problem List Diagnosis SNOMED CT(R) Diabetic peripheral neuropathy DIABETES MELLITUS Essential hypertension ESSENTIAL HYPERTENSION Hyperlipidemia HYPERLIPIDEMIA Type 2 diabetes mellitus with complication DIABETES MELLITUS Nuclear senile cataract, bilateral NUCLEAR SENILE CATARACT Vitamin D deficiency VITAMIN D DEFICIENCY Generalized osteoarthritis of multiple sites DEGENERATIVE JOINT DISEASE INVO LVING MULTIPLE JOINTS Atherosclerosis of renal artery (HCC) ARTERIOSCLEROSIS OF RENAL ARTERY Esophageal reflux GASTROESOPHAGEAL REFLUX DISEASE Peripheral vascular disease (HCC) PERIPHERAL VASCULAR DISEASE Coronary atherosclerosis CORONARY ATHEROSCLEROSIS Carotid artery stenosis CAROTID ARTERY OBSTRUCTION Obstructive sleep apnea OBSTRUCTIVE SLEEP APNEA SYNDROME Benign prostatic hypertrophy BENIGN PROSTATIC HYPERTROPHY WITHOUT OUTFLOW OB STRUCTION Benign colonic polyp BENIGN NEOPLASM OF COLON Past Medical History Diagnosis Date Anxiety Benign colonic polyp 01/2010 Benign prostatic hypertrophy Carotid artery stenosis Coronary atherosclerosis Description: S/p 4 vv CABG 09/02/07 ICD-10 conversion Diabetic peripheral neuropathy Diverticulosis of large intestine 01/2010 DJD (degenerative joint disease) Erectile dysfunction of non-organic origin Essential hypertension Former smoker Generalized osteoarthritis of multiple sites GERD (gastroesophageal reflux disease) Hyperlipidemia Nuclear senile cataract, bilateral 05/2009 Obstructive sleep apnea Osteoporosis Peripheral vascular disease (HCC) PFO (patent foramen ovale) Renal artery stenosis Description: S/p stent Squamous cell carcinoma of skin 2001 Description: S/p resection Type 2 diabetes mellitus (HCC) Vitamin D deficiency Past Surgical History Procedure Laterality Date Dental surgery Dental Surgery; Description: 2 infected molars extracted Appendectomy 1998 Coronary artery bypass graft 08/31/2007 Left internal mammary artery to left anterior descending, saphenous vein Skin cancer excision 2001 Squamous cell Cancer Removal (2001) Colectomy 1998 Colon resection (1998) Renal artery stent Bilateral 02/13/2007 Bilateral renal stent - Right Renal Artery from 99% to 0% post 5.5 x 18mm Herc ulink Plus Stent post-dilated with a 6.5 mm balloon secondary to marked poststen otic dilatation Final Medications: Current Outpatient Prescriptions Medication Sig Dispense Refill ALPRAZolam (XANAX) 0.25 MG tablet Take 0.25 [...] route every day, as needed. 30 0 green tea leaf extract (CARDIOTABS CARDIOTEA) capsule two capsules by mouth daily with food 0 0 hyaluronate (SYNVISC) 16 mg/2 mL injection prn 1 0 losartan (COZAAR) 50 MG tablet TAKE ONE TABLET BY MOUTH DAILY 90 tablet 3 omega-3 fatty acids (FISH OIL) 500 mg cap Take two capsules by mouth twice p er day 0 0 omeprazole (PRILOSEC OTC) 20 MG tablet Take one tablet by mouth daily 0 0 No current facility-administered medications for this visit. Allergies Allergen Reactions Lisinopril Reaction: Cough Niacin Thrombocytopenia Adverse Reaction Reaction: Reduced platelets; Comment: Niaspan Extended-Release Family History Problem Relation Age of Onset Coronary artery disease Father Diabetes type 2 Mother Dementia Mother Stroke Mother Dementia Sister Coronary artery disease Brother Diabetes type 2 Maternal Grandmother Hypertension Brother Social History: Social History Substance Use Topics Smoking status: Former Smoker Smokeless tobacco: None Alcohol use Yes Comment: Weekly Exercise level: Regular Activity: (Aerobics) Frequency: Daily Diet: Low carb, Low salt, Diabetic, Low fat/calorie Caffeine: Yes Caffeine frequency: Daily Caffeine amount: (3 cups) Caffeine type: Coffee Review of Systems Constitution: Positive for malaise/fatigue. Negative for fever, weakness and nig ht sweats. HENT: Negative for nosebleeds. Eyes: Negative. Cardiovascular: Negative for chest pain, claudication, cyanosis, dyspnea on exer tion, irregular heartbeat, leg swelling, near-syncope, orthopnea, palpitations, paroxysmal nocturnal dyspnea and syncope. Respiratory: Positive for snoring. Negative for cough, hemoptysis, shortness of breath, sleep disturbances due to breathing and wheezing. Endocrine: Negative for cold intolerance and polydipsia. Hematologic/Lymphatic: Does not bruise/bleed easily. Skin: Negative for rash. Musculoskeletal: Positive for joint pain. Negative for myalgias. Gastrointestinal: Positive for nausea. Negative for dysphagia, hematochezia and vomiting. Genitourinary: Negative for hematuria. Neurological: Positive for excessive daytime sleepiness. Negative for brief para lysis, disturbances in coordination, dizziness, focal weakness, light-headedness , loss of balance and numbness. Psychiatric/Behavioral: Negative for depression. All other systems reviewed and are negative. Vital Signs 05/13/16 1041 BP: 100/60 Pulse: 64 BMI: There is no height or weight on file to calculate BMI. Physical Exam Constitutional: He is oriented to person, place, and time. He appears well-devel oped. HENT: Head: Normocephalic and atraumatic. Eyes: No scleral icterus. Neck: Neck supple. No JVD present. No thyromegaly present. Cardiovascular: Normal rate, regular rhythm, normal heart sounds and intact dist al pulses. Exam reveals no gallop, no S3, no S4 and no friction rub. No murmur heard. Pulmonary/Chest: Breath sounds normal. Abdominal: Soft. Bowel sounds are normal. There is no tenderness. Musculoskeletal: He exhibits no edema. Neurological: He is alert and oriented to person, place, and time. Skin: Skin is warm and dry. Psychiatric: He has a normal mood and affect. Cholesterol Date Value 05/13/2016 115 03/14/2015 131 05/02/2014 133 HDL Cholesterol Date Value 05/13/2016 39 mg/dL 03/14/2015 42 mg/dL 05/02/2014 39 (L) Triglycerides Date Value 05/13/2016 135 mg/dL 03/14/2015 126 mg/dL 05/02/2014 100 LDL Cholesterol Date/Time Value Ref Range Status 05/13/2016 10:42 AM 49 mg/dL Final 03/14/2015 12:12 PM 64 mg/dL Final 05/02/2014 12:00 AM 70 0 Final EKG: Normal Sinus Rhythm at 65 bpm, RBBB Encounter Diagnoses Name Primary? CAD in [place] artery Yes Gastroesophageal reflux disease, esophagitis presence not specified Obstructive sleep apnea Essential hypertension Atherosclerosis of renal artery (HCC) Peripheral vascular disease (HCC) Atherosclerosis of [place] coronary artery of [place] heart without angina pec toris Hyperlipidemia, unspecified hyperlipidemia type Impression and Plan: 1. Coronary artery disease: He is completely asymptomatic at this point in trey e. He did have chest pains prior to his coronary bypass operation. He goes to a fitness center on a daily basis and exercises on a bicycle. He is asymptomati c with that activity. His electrocardiogram is unchanged. I did not think that any particular cardiac testing was indicated at this point in time. 2. Dyslipidemia: He is on appropriate-intensity statin therapy with satisfacto ry lipids. 3. Hypertension: His blood pressure is quite low today. He is also complainin g about lightheadedness when he first stands. I am stopping his Toprol today. Obviously, this may also be related to his depression as well as his cognitive i ssues. There is no major reason why he needs to be on a beta aubrey at this po int in time. He will monitor his blood pressure for the next few weeks and be i n touch with the readings. 4. Mild cognitive disorder: He is following up with his neurologist. 5. Depression: He follows up with psychiatry. 6. Orthostatic symptomatology: We talked about this. He knows the importance of good hydration and being careful when he first stands up. Treatment goals, progress, and next steps, as above, were discussed and mutually agreed upon with the patient/family. Thank you for allowing me to participate in Carl Childers's care. If I can be of any further assistance, please do not hesitate to contact me. Sincerely, Olman Frost MD TMB/sara documented in this encounter Plan of Treatment Not on filedocumented as of this encounter Procedures Comments Procedure Name Priority Date/Time Associated Diag nosis POCT LIPID PANEL Routine 05/13/2016 CAD in [place] artery 10:42 AM PUMP INSTALLER ECG Routine 05/13/2016 CAD in [place] a rtery 10:40 AM PUMP INSTALLER documented in this encounter Results * POCT Lipid Panel with Glucose - [facility] (05/13/2016 10:42 AM PUMP INSTALLER) Cholesterol 115 HDL Cholesterol 39 35 - 70 mg/dL Triglycerides 135 40 - 160 mg/dL LDL Cholesterol 49 mg/dL Non-HDL 76 Cholesterol Cholesterol/HDL 1.3 Ratio Glucose 113 mg/dL Specimen Blood * Electrocardiogram (ECG) (05/13/2016 10:40 AM PUMP INSTALLER) Specimen Narrative Performed At [facility] Test Date: 2016-05-13 Pat Name: CARL MOORE Department: [facility] Room: Gender: Male Global Implementation Manager: [id number] : 1935 Requested By: OLMAN FROST Order Number: [id number] Reading MD: Olman Frost Measurements Intervals [place] Rate: 65 P: 51 WI: 184 QRS: 31 QRSD: 134 T: 42 QT: 428 QTc: 445 Interpretive Statements SINUS RHYTHM RIGHT BUNDLE BRANCH BLOCK Compared to ECG 02/19/2015 12:17:52 No significant changes Electronically Signed On 05-19-2016 17:1 0:22 CDT by Olman Frost Procedure Note Interface, External Ris In - 05/19/2016 5:[address] [facility] Test Date: 2016-05-13 Pat Name: CARL CHILDERS Department: [facility] Room: Gender: Male Global Implementation Manager: [id number] : 1935 Requested By: OLMAN FROST Order Number: [id number] Reading : Olman Frost Measurements Intervals [place] Rate: 65 P: 51 WI: 184 QRS: 31 QRSD: 134 T: 42 QT: 428 QTc: 445 Interpretive Statements SINUS RHYTHM RIGHT BUNDLE BRANCH BLOCK Compared to ECG 02/19/2015 12:17:52 No significant changes Electronically Signed On 05-19-2016 17:10:22 CDT by Olman Frost Performing Organization Address City/State/Zipcode Ph one Number [email or web address] documented in this encounter Visit Diagnoses Diagnosis CAD in [place] artery Gastroesophageal reflux disease, esopha gitis presence not specified Obstructive sleep apnea Obstructive sleep apnea (adult) (pediat valeria) Essential hypertension Unspecified essential hypertension Atherosclerosis of renal artery (HCC) Atherosclerosis of renal artery Peripheral vascular disease (HCC) Unspecified peripheral vascular disease Atherosclerosis of [place] coronary edwina ry of [place] heart without angina pectoris Hyperlipidemia, unspecified hyperlipide nery type documented in this encounter
--- OUTSIDE RECORDS SUMMARY | 2019-09-14 20:36 | XMS REPORT | Encounter Summary ---
Author Author [facility] Organization [facility] Address Unknown Phone Unavailable Care Team Providers Care Park Superintendent Name Role Phone Benjie Montano PCP Encounter Details Care Team Description Date Type Department Tiarra Larios RN 01/08/2019 Abstract [facility] [address] [place] [address] Social History Date Tobacco Use Types Packs/Day [...] filedocumented as of this encounter Visit Diagnoses Diagnosis Essential hypertension Unspecified essential hypertension Peripheral vascular disease (HCC) Unspecified peripheral vascular disease Obstructive sleep apnea Obstructive sleep apnea (adult) (pediat valeria) documented in this encounter
--- OUTSIDE RECORDS SUMMARY | 2019-09-14 20:36 | XMS REPORT | Encounter Summary ---
Author Author [facility] Organization [facility] Address Unknown Phone Unavailable Care Team Providers Care Despatch Clerk Name Role Phone Benjie Montano PCP Encounter Details Care Team Description Date Type Department Olman Holloway MD [address] [place] [address] [phone] 06/16/2016 Documentation [facility] [address] [place] [address] Social History Date Tobacco Use Types Packs/Day [...] Procedure Name Priority Date/Time Associated Diag nosis CT OUTSIDE RECORD Routine 05/25/2016 documented in this encounter Results * CT Outside Record (05/25/2016) Impressions Performed At 1.3 cm non-hypermetabolic lobulated rig ht lower lobe pulmonary nodule is favored to be benign such as a non-calcified gr anuloma or hamartoms. Three month F/U CT chest is recommended to observe this le jeanne. [address] [place], [place] Narrative Performed At This result has an attachment that is n ot available. documented in this encounter Visit Diagnoses Not on filedocumented in this encounter
--- OUTSIDE RECORDS SUMMARY | 2019-09-14 20:36 | XMS REPORT | Encounter Summary ---
Author Author [facility] Organization [facility] Address Unknown Phone Unavailable Care Team Providers Care Research Quality Assurance Analyst Name Role Phone Benjie Montano PCP Encounter Details Care Team Description Date Type Department Olman Holloway MD [address] [facility] [address] [place] [address] [phone] 05/11/2017 Documentation [facility] [address] [place], [place] [address] [place], [place] [id number] Social History Date Tobacco Use Types Packs/Day [...]
--- OUTSIDE RECORDS SUMMARY | 2019-09-14 20:36 | XMS REPORT | Encounter Summary ---
Author Author [facility] Organization [facility] Address Unknown Phone Unavailable Care Team Providers Care Meter Maintenance Person Name Role Phone Benjie Montano PCP Reason for Referral * Diagnostic Imaging (Routine) Referred By Contact Referred To Contact Status Reason Specialty Diagnoses / Procedures Olman Frost MD [address] [place] [address] Closed Diagnoses Essential hypertension P rocedures Electrocardiogram (ECG) Reason for Visit * Reason Comments Coronary Artery Disease Encounter Details Care Team Description Date Type Department Olman Frost MD [address] [place], [place] [id number] Essential hypertension (Primary Dx); Gastroesophageal reflux disease without esophagitis; Obstructive sleep apnea; Atherosclerosis of renal artery (HCC); Peripheral vascular disease (HCC); Mixed hyperlipidemia; Atherosclerosis of [place] coronary artery of [place] heart without angina pectoris; S/P CABG (coronary artery bypass graft); S/P renal artery angioplasty; Late onset Alzheimer's disease without behavioral disturbance; Type 2 diabetes mellitus with stage 3 chronic kidney disease, without long-term current use of insulin ([facility]) 07/19/2017 Office Visit [facility] [address] [place], [place] [id number] Social History Date Tobacco Use Types Packs/Day [...] Signs Reading Time Taken Comments Vital Sign 110/60 07/19/2017 3:06 PM CDT Blood Pressure 97 07/19/2017 3:06 PM CDT Pulse - - Temperature - - Respiratory Rate 97% 07/19/2017 3:06 PM CDT Oxygen Saturation - - Inhaled Oxygen Concentration 89.4 kg (197 lb) 07/19/2017 3:06 PM CDT Weight 170.2 cm (5' 7") 07/19/2017 3:06 PM CDT Height 30.85 07/19/2017 3:06 PM CDT Body Mass Index documented in this encounter Patient Instructions * Patient Instructions* Candelario Rodgers RN - 07/19/2017 1:45 PM CDT Call nurse line with any questions/concerns at [phone]. For scheduling issues/changes call [phone]. Follow up in 1 year, unless indicated otherwise. documented in this encounter Progress Notes * Olman Frost MD - 07/19/2017 1:45 PM CDT [facility] [place] Appointment Date: 07/19/2017 Benjie Montano DO [address] [place] [id number] RE: Carl Childers : 1935 Visit provider: Olman Frost MD Dear Benjie Montano DO, I had the pleasure of seeing Carl Childers in the office today. He is a(n) 82 y.o. male and presents with the following chief complaint(s): Coronary Artery Disease HPI: He underwent bypass surgery in August of 2007. At that time, he was having chest pains. He also had a markedly abnormal myocardial perfusion study. At surgery, he had an TORRES to the LAD, a saphenous vein graft to the posterior descending a rtery, and a sequential saphenous vein graft to 2 obtuse marginal vessels. In 2 013, a PET study showed a localized area of nontransmural injury and minimal ass ociated ischemia laterally. His LVEF was 45%. He has type 2 diabetes, dyslipidemia, hypertension, mild renal artery stenosis, orthostatism, and cognitive decline. He denies chest pains. He also denies shortness of breath. His says he is quite inactive physically at this point in time. He has not had palpitations, s yncope, or presyncope. He has had some falls and near falls. He had one episod e of diaphoresis without chest pain or shortness of breath. This was shortly af ter starting on Amaryl. Patient Active Problem List Diagnosis SNOMED CT(R) Diabetic peripheral neuropathy Essential hypertension ESSENTIAL HYPERTENSION Nuclear senile cataract, bilateral NUCLEAR SENILE CATARACT Generalized osteoarthritis of multiple sites DEGENERATIVE JOINT DISEASE INVO LVING MULTIPLE JOINTS Atherosclerosis of renal artery (HCC) ARTERIOSCLEROSIS OF RENAL ARTERY Esophageal reflux GASTROESOPHAGEAL REFLUX DISEASE Peripheral vascular disease (HCC) PERIPHERAL VASCULAR DISEASE Occlusion and stenosis of carotid artery CAROTID ARTERY OBSTRUCTION Obstructive sleep apnea OBSTRUCTIVE SLEEP APNEA SYNDROME Benign prostatic hypertrophy BENIGN PROSTATIC HYPERTROPHY WITHOUT OUTFLOW OB STRUCTION Benign colonic polyp BENIGN NEOPLASM OF COLON Mixed hyperlipidemia MIXED HYPERLIPIDEMIA Coronary atherosclerosis of [place] coronary vessel CORONARY ARTERIOSCLEROSIS IN [place] ARTERY Diabetes mellitus, type 2 (HCC) TYPE 2 DIABETES MELLITUS S/P CABG (coronary artery bypass graft) HISTORY OF CORONARY ARTERY BYPASS GR AFTING Late onset Alzheimer's disease without behavioral disturbance PRIMARY DEGENE RATIVE DEMENTIA OF THE ALZHEIMER TYPE, SENILE ONSET, UNCOMPLICATED S/P renal artery angioplasty HISTORY OF ANGIOPLASTY Past Medical History: Diagnosis Date Anxiety Benign colonic polyp 01/2010 Benign prostatic hypertrophy Carotid artery stenosis Coronary atherosclerosis of [place] coronary vessel S/P CABG Diabetes mellitus, type [...] to familiar areas only. Recommend a GPS silver service waiter should be installed on phone to help track if needed for navigational issues. Follow up with Dr. Mathew as scheduled in September. Mixed hyperlipidemia Nuclear [...] Cancer Removal (2001) Final Medications: Current Outpatient Prescriptions Medication Sig [...] by mouth every morning before heaven akfast. hyaluronate (SYNVISC) 16 mg/2 mL injection prn 1 0 losartan (COZAAR) 50 MG tablet TAKE ONE TABLET BY MOUTH DAILY 90 tablet 1 omeprazole (PRILOSEC OTC) 20 MG tablet Take [...] Substance Use Topics Smoking status: Former Smoker Packs/day: 2.00 Years: 20.00 Types: Cigarettes Quit date: 07/19/1977 Smokeless tobacco: Never Used Alcohol use Yes Comment: occas. Review of Systems Musculoskeletal: Positive for arthritis and joint pain. Neurological: Positive for dizziness. All other systems reviewed and are negative. Vital Signs 07/19/17 1506 BP: 110/60 Pulse: 97 SpO2: 97% Weight: 89.4 kg (197 lb) Height: 1.702 m (5' 7") BMI: Body mass index is 30.85 kg/m. Physical Exam Constitutional: He is oriented to person, place, and time. He appears well-devel oped and well-nourished. HENT: Head: Normocephalic. Eyes: Conjunctivae are normal. Pupils are equal, round, and reactive to light. Neck: Normal range of motion. No thyromegaly present. Cardiovascular: Normal rate, regular rhythm, normal heart sounds and intact dist al pulses. Exam reveals no gallop and no friction rub. No murmur heard. Pulmonary/Chest: Effort normal and breath sounds normal. Abdominal: Soft. Bowel sounds are normal. He exhibits no mass. There is no tende rness. Musculoskeletal: Normal range of motion. He exhibits no edema. Neurological: He is alert and oriented to person, place, and time. Evident memory lapses - often asks his to confirm or change his answers to questions. Skin: Skin is warm and dry. Psychiatric: He has a normal mood and affect. His behavior is normal. Judgment a nd thought content normal. Nursing note and vitals reviewed. Cholesterol (no units) Date Value 07/19/2017 171 05/13/2016 115 03/14/2015 131 HDL Cholesterol (mg/dL) Date Value 07/19/2017 31 (A) 05/13/2016 39 03/14/2015 42 Triglycerides (mg/dL) Date Value 07/19/2017 301 (A) 05/13/2016 135 03/14/2015 126 LDL Cholesterol Date/Time Value Ref Range Status 07/19/2017 03:11 PM 79 mg/dL Final 05/13/2016 10:42 AM 49 mg/dL Final 03/14/2015 12:12 PM 64 mg/dL Final EKG: Normal Sinus Rhythm, RBBB Encounter Diagnoses Name Primary? 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 Coronary artery disease: He is asymptomatic. He did have chest pains prior to his coronary bypass operation. I did not think that testing was essential at this point in time. He lives about 3 hours away from here and transportation is difficult for him. He knows the importance of seeking medical attention prom ptly were he to have chest pains. 2. Dyslipidemia: He is on appropriate intensity statin therapy. 3. Hypertension: Blood pressure is satisfactory today. 4. Depression: He follows up with psychiatry. 5. Cognitive disorder: He has been diagnosed with Alzheimer's. He follows up with a neurologist. 6. 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 Treatment goals, progress and next steps, as above, were discussed and mutually agreed upon with the patient/family. Thank you for allowing me to participate in Carl Childers's care. If I can be of any further assistance, please do not hesitate to contact me. Sincerely, Olman Frost MD /bem documented in this encounter Plan of Treatment Not on filedocumented as of this encounter Procedures Comments Procedure Name Priority Date/Time Associated Diag nosis POCT LIPID PANEL Routine 07/19/2017 Essential hyp ertension 3:11 PM CDT ECG Routine 07/19/2017 Essential hyper tension 3:10 PM CDT documented in this encounter Results * POCT Lipid Panel (07/19/2017 3:11 PM CDT) Cholesterol 171 HDL Cholesterol 31 (A) 35 - 70 mg/dL Triglycerides 301 (A) 40 - 160 mg/dL LDL Cholesterol 79 mg/dL Non-HDL 140 Cholesterol Cholesterol/HDL 2.5 Ratio Glucose 124 mg/dL Specimen Blood * Electrocardiogram (ECG) (07/19/2017 3:10 PM CDT) QRSd 138 [facility] QT 356 [facility] QTC 452 [facility] ECGHR 97 [facility] ECGPR 192 [facility] Specimen Narrative Performed At [facility] Date: 2017-07-19 Pat Name: CARL CHILDERS Department: [facility] Room: Gender: Male Construction Safety Consultant: [id number] : 1935 Requested By: OLMAN FROST Order Number: [id number] Reading : Olman Frost Measurements Intervals [place] Rate: 97 P: 38 [place]: 192 QRS: 15 QRSD: 138 T: 49 QT: 356 QTc: 452 Interpretive Statements SINUS RHYTHM RIGHT BUNDLE BRANCH BLOCK Electronically Signed On 07-22-2017 22:0 4:56 CDT by Olman Frost Procedure Note Interface, External Ris In - 07/22/2017 10:05 PM CDT [facility] Date: 2017-07-19 Pat Name: CARL CHILDERS Department: [facility] Room: Gender: Male Construction Safety Consultant: [id number] : 1935 Requested By: OLMAN FROST Order Number: [id number] Reading MD: Olman Frost Measurements Intervals [place] Rate: 97 P: 38 [place]: 192 QRS: 15 QRSD: 138 T: 49 QT: 356 QTc: 452 Interpretive Statements SINUS RHYTHM RIGHT BUNDLE BRANCH BLOCK Electronically Signed On 07-22-2017 22:04:56 CDT by Olman Frost Performing Organization Address City/State/Zipcode Ph one Number [email or web address] documented in this encounter Visit Diagnoses Diagnosis Essential hypertension Unspecified essential hypertension Gastroesophageal reflux disease without esophagitis Esophageal reflux Obstructive sleep apnea Obstructive sleep apnea (adult) (pediat valeria) Atherosclerosis of renal artery (HCC) Atherosclerosis of renal artery Peripheral vascular disease (HCC) Unspecified peripheral vascular disease Mixed hyperlipidemia Atherosclerosis of [place] coronary edwina ry of [place] heart without angina pectoris S/P CABG (coronary artery bypass graft) Postsurgical aortocoronary bypass statu s S/P renal artery angioplasty Other postprocedural status Late onset Alzheimer's disease without behavioral disturbance (HCC) Type 2 diabetes mellitus with stage 3 c hronic kidney disease, without long-term current use of insulin (HCC) documented in this encounter
--- OUTSIDE RECORDS SUMMARY | 2019-09-14 20:36 | XMS REPORT | Encounter Summary ---
Author Author [facility] Organization [facility] Address Unknown Phone Unavailable Care Team Providers Care Marketing Technology Specialist Name Role Phone Benjie Montano PCP Encounter Details Care Team Description Date Type Department Nina Redding RN 07/18/2017 Abstract [facility] [address] [place] [address] Social History Date Tobacco Use Types Packs/Day [...] as of this encounter Visit Diagnoses Diagnosis S/P CABG (coronary artery bypass graft) Postsurgical aortocoronary bypass statu s S/P renal artery angioplasty Other postprocedural status documented in this encounter
--- OUTSIDE RECORDS SUMMARY | 2019-09-14 20:36 | XMS REPORT | Encounter Summary ---
Author Author [facility] Organization [facility] Address Unknown Phone Unavailable Care Team Providers Care Tax Advisor Name Role Phone Benjie Montano PCP Reason for Visit * Reason Comments Medication Refill Encounter Details Care Team Description Date Type Department Olman Holloway MD [address] [place] [address] [phone] Medication Refill 05/04/2017 Refill [facility] [address] [place] [address] Social History Date Tobacco Use Types Packs/Day Years Used Former Smoker Drinks/Week oz/Week Comments Alcohol Use weekly Yes Sex Assigned at Date Recorded Not on file Industry Job Start Date Occupation Not on file Not on file Not on file Travel End Travel History Travel Start No recent travel history available. documented as of this encounter Miscellaneous Notes * Telephone Encounter - Anni Britt - 05/16/2017 11:48 AM CDT Patient is scheduled for 06/22 w/TMB * Telephone Encounter - Delmi Crisostomo RN - 05/15/2017 10:54 AM CDT Received refill req for atorva. Reviewed chart, auth refill #90 x 3. Pt due for annual -[facility] documented in this encounter Plan of Treatment Not on filedocumented as of this encounter Visit Diagnoses Not on filedocumented in this encounter
--- OUTSIDE RECORDS SUMMARY | 2019-09-14 20:36 | XMS REPORT | Encounter Summary ---
Author Author [facility] Organization [facility] Address Unknown Phone Unavailable Care Team Providers Care Breeder Service Technician Name Role Phone Benjie Montano PCP Encounter Details Care Team Description Date Type Department Génesis Pardo RN 06/20/2017 Abstract [facility] [address] [place] [address] Social History Date Tobacco Use Types Packs/Day [...] as of this encounter Visit Diagnoses Diagnosis Mixed hyperlipidemia S/P CABG (coronary artery bypass graft) Postsurgical aortocoronary bypass statu s documented in this encounter
--- OUTSIDE RECORDS SUMMARY | 2019-09-14 20:36 | XMS REPORT | Encounter Summary ---
Author Author [facility] Organization [facility] Address Unknown Phone Unavailable Care Team Providers Care Tax Examiner Name Role Phone Benjie Montano PCP Encounter Details Care Team Description Date Type Department Heike Hamlin LPN 07/06/2017 Telephone [facility] [address] [place] [address] Social History Date Tobacco Use Types Packs/Day Years Used Former Smoker Drinks/Week oz/Week Comments Alcohol Use weekly Yes Sex Assigned at Date Recorded Not on file Industry Job Start Date Occupation Not on file Not on file Not on file Travel End Travel History Travel Start No recent travel history available. documented as of this encounter Miscellaneous Notes * Telephone Encounter - Heike Hamlin LPN - 07/06/2017 7:00 AM CDT Received fax from [facility] ([phone] fa x [phone]) document for cardiac risk assessment. Pt will have bilateral knee replacement one at a time. Procedure to be determined at [facility] under spinal.Pt has a scheduled annual appointment with [facility] on 07/19/17.Will have pt get a cardiac clearance at that office visit. Orthopaedic Specialist phoned left detailed v/m of pt's upcomming appointment an d getting cardiac clearance and med hold of aspirin at that time. documented in this encounter Plan of Treatment Not on filedocumented as of this encounter Visit Diagnoses Not on filedocumented in this encounter
--- OUTSIDE RECORDS SUMMARY | 2019-09-14 20:36 | XMS REPORT | Encounter Summary ---
Author Author [facility] Organization [facility] Address Unknown Phone Unavailable Care Team Providers Care Broker Name Role Phone Benjie Montano PCP Encounter Details Care Team Description Date Type Department Olman Holloway MD [address] [place] [address] [phone] 09/15/2018 Documentation [facility] [address] [place] [address] [address] [place] [address] Social History Date Tobacco Use Types Packs/Day [...]
--- OUTSIDE RECORDS SUMMARY | 2019-09-14 20:36 | XMS REPORT | Clinical Summary ---
Author Author [facility] Organization [facility] Address Unknown Phone Unavailable Care Team Providers Care Film Developing Machine Operator Name Role Phone Benjie Montano PCP Allergies Comments Active Allergy Reactions Severity Noted Date Reaction: cough; Lisinopril 02/18/2015 Adverse Reaction Reaction: reduced platelets; Comment: Niaspan Extended-Release Niacin Thrombocytope 02/18/2015 issac Medications End Date Status Medication Sig Dispensed Refills Start Date Active cholecalciferol, vitamin Take 3 30 0 0 D3, (VITAMIN D3) 1,000 tablets by 5 unit capsule oral route daily Active fexofenadine (TOÑO) take 1 tablet 30 0 1 180 MG tablet by oral route 4 every day, as needed. Active aspirin 81 MG EC tablet take 1 tablet 30 0 (81MG) by 3 oral route every day Active omeprazole (PRILOSEC OTC) Take one 0 0 20 MG tablet tablet by 2 mouth daily Active ALPRAZolam (XANAX) 0.25 Take 0.25 mg 0 MG tablet by mouth nightly as needed for sleep. Active donepezil (ARICEPT) 5 MG Take 5 mg by 0 tablet mouth nightly. Active atorvastatin (LIPITOR) 40 TAKE ONE 90 tablet 3 MG tablet TABLET BY 8 MOUTH EVERY EVENING Active glimepiride (AMARYL) 1 MG Take 1 mg by 0 tablet mouth every morning before breakfast. Active losartan-hydrochlorothiaz Take 1 tablet 0 desiree (HYZAAR) 100-12.5 mg by mouth per tabletIndications: daily. 12.5 mg Active acetaminophen (TYLENOL) Take 10 mg/kg 0 100 mg/mL suspension by mouth every 4 (four) hours as needed for fever. Active memantine (NAMENDA) 10 MG Take 10 mg by 0 tablet mouth 2 (two) times a day. Active Problems Problem Noted Date S/P renal artery angioplasty 07/18/2017 Overview: 2007 And stenting bilaterally Late onset Alzheimer's disease without behavioral dis turbance 05/02/2017 Overview: Overview: Syndrome of Cognition: Diagnosis change d at the last visit from [facility] to AD. He had the Aricept increased to 10 mg d aily and has been tolerating it well. Family feels he is stable at this time. Discussed driving safety and medication management. Last Assessment & Plan: Stable at this time. Recommended he con tinue current treatment plan. Stay engaged mentally, physically and social ly. Plan: Stay active mentally, physically and socially. Redirect and reassure as needed. Drive to familiar areas only. Recommend a GPS wine specialist should be installed on phone to help track if needed for na vigational issues. Follow up with Dr. Mathew as schedule d in September. Nuclear senile cataract, bilateral 05/08/2013 Esophageal reflux 05/04/2011 Diabetic peripheral neuropathy 01/27/2010 Occlusion and stenosis of carotid artery 01/27/2010 Obstructive sleep apnea 01/27/2010 Benign colonic polyp 01/27/2010 Essential hypertension 10/15/2009 Generalized osteoarthritis of multiple sites 010 Atherosclerosis of renal artery 10/15/2009 Overview: Description: s/p stent Peripheral vascular disease 10/15/2009 Benign prostatic hypertrophy 10/15/2009 S/P CABG (coronary artery bypass graft) 05/31/2007 Mixed hyperlipidemia Coronary atherosclerosis of [place] nary vessel Overview: S/P CABG Diabetes mellitus, type 2 Resolved Problems Problem Noted Date Resolved Date Vitamin D deficiency 10/27/2010 07/18/2017 Overview: ICD-10 conversion Immunizations Name Administration Dates Next Due Influenza TIV (IM) 11/08/2012 Family History Medical History Relation Name Comments Coronary artery disease Brother Hypertension Brother Coronary artery disease Father Diabetes type II Maternal Grandmother Dementia Mother Diabetes type II Mother Stroke Mother Dementia Sister Relation Name Status Comments Brother Cause of was CRF at age 67. (Age 67 ) Brother Cause of was CABG at age 71. (Age 71 ) Brother Alive Brother Alive Father Cause of was [place] at age 62. (Age 62 ) Maternal Grandmother Mother Cause of was CVA at age 82. (Age 82 ) Sister Cause of was [place] at age 86. (Age 86 ) Sister Alive Social History Date Tobacco Use Types Packs/Day Years Used Quit: 07/19/1977 Former Smoker Cigarettes 2 20 Smokeless Tobacco: Never Used Drinks/Week oz/Week Comments Alcohol Use occas. Yes Sex Assigned at Date Recorded Not on file Industry Job Start Date Occupation Not on file Not on file Not on file Travel End Travel History Travel Start No recent travel history available. Last Filed Vital Signs Reading Time Taken Comments Vital Sign 124/69 01/10/2019 12:55 PM COMPUTER SYSTEMS INTEGRATOR lowest Blood Pressure 71 01/10/2019 12:55 PM COMPUTER SYSTEMS INTEGRATOR reg Pulse - - Temperature 14 07/30/2005 10:07 AM CDT Respiratory Rate 97% 07/19/2017 3:06 PM CDT Oxygen Saturation - - Inhaled Oxygen Concentration 89.8 kg (198 lb) 01/10/2019 12:54 PM COMPUTER SYSTEMS INTEGRATOR Weight 170.2 cm (5' 7") 01/10/2019 12:54 PM COMPUTER SYSTEMS INTEGRATOR Height 31.01 01/10/2019 12:54 PM COMPUTER SYSTEMS INTEGRATOR Body Mass Index Plan of Treatment Health Maintenance Due Date Last Done Comments Dementia Cognitive 1935 Assessment # Diabetes Mellitus 1935 Ophthalmology Exam Medicare Annual Wellness 1935 Td # 1935 Diabetes Mellitus Foot 01/31/1944 Exam Zoster Vaccine# (1 of 2) 01/31/1984 Depression Screening 1999 PHQ-9 # Fall Risk Assessment # 1999 Pneumococcal Vaccine: 65+ 2000 01/02/2016 Years (2 of 2 - PPSV23) Diabetes Mellitus 09/12/2015 03/14/2015, Hemoglobin A1C 05/02/2014, 12/19/2013, Additional history exists Influenza Vaccine (#1) 2020 01/02/2018, 12/29/2016, 12/30/2015, Additional history exists Lipid Screening 01/11/2020 01/10/2019, 01/10/2019, 07/19/2017, Additional history exists Results Not on filefrom Last 3 Months Insurance Type Payer Benefit Subscriber ID Effective Phone Address Plan / Dates Group Medicare MEDICARE MEDICARE xxxxxxxxxxx 1999- [place] PART A B Present [place], [place] BLUE [place] BLUE [facility] BC OUT OF xxxxxxxxxxxx [id number] AREA resent HUGOA [address] (Home) [place] [id number] MilyCarl Lua Personal/F Self 1935 [address] ([address]) [place] [id number] Advance Directives For more information, please contact: [phone] Patient Credit Consultant Explanation Type Date Recorded Advance Directives and Living Will Power of [employer] [facility] 06/17/2013 12:28 PM Directive
--- OUTSIDE RECORDS SUMMARY | 2019-09-14 20:36 | XMS REPORT | Encounter Summary ---
Author Author [facility] Organization [facility] Address Unknown Phone Unavailable Care Team Providers Care Silk Examiner Name Role Phone Benjie Montano PCP Encounter Details Care Team Description Date Type Department Olman Holloway MD [address] [facility] [address] [place] [address] [phone] 07/05/2017 Documentation [facility] [address] [place], [place] [address] [place], [place] [address] Social History Date Tobacco Use Types Packs/Day [...]
--- OUTSIDE RECORDS SUMMARY | 2019-09-14 20:36 | XMS REPORT | Encounter Summary ---
Author Author [facility] Organization [facility] Address Unknown Phone Unavailable Care Team Providers Care Manager Beverage Name Role Phone Benjie Montano PCP Reason for Visit * Reason Comments Other Encounter Details Care Team Description Date Type Department Olman Holloway MD [address] [place], [place] [id number] Other 03/15/2017 Refill [facility] [address] [place] [address] Social History Date Tobacco Use Types Packs/Day Years Used Former Smoker Drinks/Week oz/Week Comments Alcohol Use weekly Yes Sex Assigned at Date Recorded Not on file Industry Job Start Date Occupation Not on file Not on file Not on file Travel End Travel History Travel Start No recent travel history available. documented as of this encounter Miscellaneous Notes * Telephone Encounter - Tawanda Reynoso LPN - 03/17/2017 7:43 AM SMOKING TOBACCO PACKING MACHINE HAND ARIADNA with [facility] on 05/13/16; No changes to medication noted. On recall with [facility] Sent 90 day 1 refill. ING TOBACCO PACKING MACHINE HAND documented in this encounter Plan of Treatment Not on filedocumented as of this encounter Visit Diagnoses Not on filedocumented in this encounter
--- OUTSIDE RECORDS SUMMARY | 2019-09-14 20:37 | XMS REPORT | Encounter Summary ---
Author Author [facility] Organization [facility] Address Unknown Phone Unavailable Care Team Providers Care Residential Sales Manager Name Role Phone Benjie Montano PCP Encounter Details Care Team Description Date Type Department Olman Holloway MD [address] [facility] [address] [place] [address] [phone] 03/22/2016 Documentation [facility] [address] [place], [place] [address] [place], [place] [id number] Social History Date Tobacco Use Types Packs/Day [...]
--- OUTSIDE RECORDS SUMMARY | 2019-09-14 20:37 | XMS REPORT | Encounter Summary ---
Author Author [facility] Organization [facility] Address Unknown Phone Unavailable Care Team Providers Care Sheet Rock Installation Helper Name Role Phone Charmaine Black PCP Encounter Details Care Team Description Date Type Department Belle Werner RN 02/18/2015 Abstract [facility] [address] [facility] [address] [place] [address] Social History Date Tobacco Use Types Packs/Day Years Used Former Smoker Sex Assigned at Date Recorded Not on file Industry Job Start Date Occupation Not on file Not on file Not on file Travel End Travel History Travel Start No recent travel history available. documented as of this encounter Plan of Treatment Not on filedocumented as of this encounter Visit Diagnoses Not on filedocumented in this encounter
--- OUTSIDE RECORDS SUMMARY | 2019-09-14 20:37 | XMS REPORT | Encounter Summary ---
Author Author [facility] Organization [facility] Address Unknown Phone Unavailable Care Team Providers Care Conductor Freight Name Role Phone Charmaine Black PCP Encounter Details Care Team Description Date Type Department Richard Freeman MD [address] [facility] [address] [place] [address] [phone] Stephania Whitaker RN [facility] [address] [place] [address] 09/30/2014 [facility] Encounter [address] [place], [place] [id number] Social History Date Tobacco Use Types Packs/Day Years Used Never Smoker Sex Assigned at Date Recorded Not on file Industry Job Start Date Occupation Not on file Not on file Not on file Travel End Travel History Travel Start No recent travel history available. documented as of this encounter Medications at Time of Discharge Start Date End Date Medication Sig Dispensed Refills 11/08/2012 aspirin 81 MG EC tablet take 1 tablet 30 0 (81MG) by oral route every day 05/09/2014 cholecalciferol, vitamin Take 3 30 0 D3, (VITAMIN D3) 1,000 tablets by unit capsule oral route daily 01/14/2014 fexofenadine (TOÑO) take 1 tablet 30 0 180 MG tablet by oral route every day, as needed. 11/09/2011 omeprazole (PRILOSEC OTC) Take one 0 0 20 MG tablet tablet by mouth daily 05/17/2014 05/18/2015 CARDIOTABS CARDIOTEA TAKE 2 60 0 capsule TABLETS (for 662.5 mg) BY MOUTH DAILY 12/31/2013 12/24/2014 ONETOUCH DELICA LANCETS TEST ONCE 1 0 30 gauge Misc DAILY; DX: 250.9 11/09/2013 11/09/2014 ONETOUCH ULTRA TEST Strp TEST ONCE 100 0 DAILY; DX: 250.9 05/17/2014 05/18/2015 sertraline (ZOLOFT) 50 MG TAKE 1 TABLET 30 0 tablet DAILY. 10/20/2010 10/09/2014 acetaminophen (TYLENOL take tablet 0 0 EXTRA STRENGTH) 500 MG (500MG) by tablet oral route every 6 hours as needed 06/07/2011 10/09/2014 amino acids-whey pro con 1 scoop of 60 0 & iso (WHEY PROTEIN) 25 whey protein gram-140 kcal/34 gram daily Powd 10/20/2010 10/09/2014 amino acids-whey pro con 2 scoops of 0 0 & iso (WHEY PROTEIN) 25 whey protein gram-140 kcal/34 gram mixed with 1 Powd cup soy milk daily 07/09/2004 10/09/2014 aspirin (ECOTRIN LOW Take one 0 0 STRENGTH) 81 MG EC tablet tablet by mouth daily 10/19/2007 10/09/2014 aspirin 325 MG EC tablet Take one 0 0 tablet by mouth daily 05/09/2014 10/09/2014 atorvastatin (LIPITOR) 40 Take 1 tablet 90 1 MG tablet by mouth daily *Hold x 3 weeks and call 03/08/2014 10/09/2014 atorvastatin (LIPITOR) 40 TAKE ONE 90 1 MG tablet TABLET BY MOUTH EVERY DAY PREFERABLY IN THE EVENING 11/27/2013 10/09/2014 atorvastatin (LIPITOR) 40 take 1 tablet 90 0 MG tablet (40MG) by oral route every day 08/30/2013 10/09/2014 atorvastatin (LIPITOR) 40 take 1 tablet 90 0 MG tablet (40MG) by oral route every day 05/08/2013 10/09/2014 atorvastatin (LIPITOR) 40 take 1 tablet 90 3 MG tablet (40MG) by oral route every day 03/20/2013 10/09/2014 atorvastatin (LIPITOR) 40 take 1 tablet 90 0 MG tablet (40MG) by oral route every day 04/13/2012 10/09/2014 atorvastatin (LIPITOR) 40 take 1 tablet 90 3 MG tablet (40MG) by oral route every day 11/09/2011 10/09/2014 atorvastatin (LIPITOR) 40 take 1 tablet 90 3 MG tablet (40MG) by oral route every day 11/25/2010 10/09/2014 atorvastatin (LIPITOR) 40 take 1 tablet 90 3 MG tablet (40MG) by ORAL route every day 11/05/2009 10/09/2014 atorvastatin (LIPITOR) 40 take 1 tablet 90 3 MG tablet (40MG) by ORAL route every day 02/22/2011 10/09/2014 atorvastatin (LIPITOR) 80 take 1 tablet 90 3 MG tablet (80MG) by oral route every day 07/09/2004 10/09/2014 calcium carbonate-vitamin Take one 0 0 D3 600 mg(1,500mg) -400 tablet by unit per tablet mouth two times per day 05/08/2013 10/09/2014 CARDIOTABS OMEGA-3 TAKE 2 60 0 capsule TABLETS (for 1200 mg of EPA/DHA) BY MOUTH DAILY 10/20/2010 10/09/2014 cholecalciferol, vitamin Take 2 0 0 D3, (VITAMIN D3) 1,000 tablets by unit capsule oral route daily 12/18/2009 10/09/2014 cholecalciferol, vitamin Take 1 tablet 0 0 D3, (VITAMIN D3) 1,000 by mouth unit capsule twice daily 09/22/2009 10/09/2014 cholecalciferol, vitamin 0 D3, (VITAMIN D3) 1,000 unit capsule 04/18/2012 10/09/2014 cholecalciferol, vitamin TAKE 2 60 0 D3, 1,000 unit capsule CAPSULES BY MOUTH DAILY 10/11/2007 10/09/2014 docusate sodium (DULCOLAX 0 0 STOOL SOFTENER, DSS,) 100 MG capsule 05/17/2014 02/19/2015 ENTERIC COATED ASPIRIN 81 TAKE 1 TABLET 30 0 mg EC tablet DAILY DIRECTED. 07/05/2005 10/09/2014 ezetimibe-simvastatin Take 1/2 0 0 (VYTORIN) 10-40 mg per tablet by tablet mouth daily 07/09/2004 10/09/2014 ezetimibe-simvastatin Take one 0 0 (VYTORIN) 10-40 mg per tablet by tablet mouth before bedtime 07/09/2004 10/09/2014 famotidine (PEPCID) 20 MG Take one 0 0 tablet tablet by mouth daily 10/11/2007 10/09/2014 ferrous fumarate-docusate Take one 0 0 Na 150 (50)-100 mg TbER tablet by mouth daily 12/10/2010 07/19/2017 green tea leaf extract two capsules 0 0 (CARDIOTABS CARDIOTEA) by mouth capsule daily with food 01/10/2019 hyaluronate (SYNVISC) 16 prn 1 0 mg/2 mL injection 02/07/2007 10/09/2014 hydrochlorothiazide Take one 0 0 (HYDRODIURIL) 25 MG tablet by tablet mouth daily 06/17/2010 10/09/2014 HYDROcodone-acetaminophen take 1 448 0 (LORCET-HD) 5-500 mg per capsule by capsule oral route every 6 hours as needed 04/18/2012 10/09/2014 LEGACY MED TAKE 1 30 0 CAPSULE DAILY. 11/08/2006 10/09/2014 lisinopril Take one 30 11 (PRINIVIL,ZESTRIL) 20 MG tablet by tablet mouth daily 12/07/2006 10/09/2014 lisinopril (ZESTRIL) 40 Take one 30 10 MG tablet tablet by mouth daily 05/08/2013 10/09/2014 losartan (COZAAR) 50 MG TAKE 1 TABLET 30 0 tablet BY MOUTH DAILY 11/19/2013 12/19/2014 losartan (COZAAR) 50 MG take 1 tablet 30 9 tablet (50MG) by oral route every day 11/12/2013 10/09/2014 losartan (COZAAR) 50 MG take 1 tablet 90 2 tablet (50MG) by oral route every day 10/15/2013 10/09/2014 losartan (COZAAR) 50 MG take 1 tablet 30 0 tablet (50MG) by oral route every day 08/30/2013 10/09/2014 losartan (COZAAR) 50 MG take 1 tablet 30 0 tablet (50MG) by oral route every day 12/11/2012 10/09/2014 losartan (COZAAR) 50 MG take 1 tablet 30 6 tablet (50MG) by oral route every day 07/10/2004 10/09/2014 metoprolol succinate Take one 30 11 (TOPROL XL) 100 MG 24 hr capsule by tablet mouth daily 06/16/2012 10/09/2014 metoprolol succinate Take one 0 0 (TOPROL XL) 25 MG 24 hr tablet by tablet mouth in the AM. 10/11/2007 10/09/2014 metoprolol succinate Take one 0 0 (TOPROL XL) 25 MG 24 hr tablet by tablet mouth in the AM. 10/01/2013 10/31/2014 metoprolol succinate take 1 tablet 90 3 (TOPROL XL) 50 MG 24 hr (50MG) by tablet oral route every day 06/29/2013 10/09/2014 metoprolol succinate take 1 tablet 90 0 (TOPROL XL) 50 MG 24 hr (50MG) by tablet oral route every day 06/16/2012 10/09/2014 metoprolol succinate take 1 tablet 90 3 (TOPROL XL) 50 MG 24 hr (50MG) by tablet oral route every day 11/08/2006 10/09/2014 metoprolol succinate Take one 0 0 (TOPROL XL) 50 MG 24 hr tablet by tablet mouth daily 07/09/2004 10/09/2014 metoprolol succinate Take one 0 0 (TOPROL XL) 50 MG 24 hr tablet by tablet mouth daily 10/16/2012 10/09/2014 metoprolol succinate TAKE 1 TABLET 30 0 (TOPROL-XL) 50 MG 24 hr DAILY. tablet 05/08/2013 10/09/2014 MULTIVIT take 1 scoop 30 0 &MINERALS/FERROUS FUM (for 26 g) (MULTI VITAMIN ORAL) mixed in almond milk by mouth daily 11/04/2009 10/09/2014 multivitamin (CARDIOTABS take 1 tablet 30 0 CARDIODAILY) capsule by oral route every day 11/04/2009 10/09/2014 multivitamin (CARDIOTABS take 1 tablet 0 CARDIODAILY) capsule (20MG) by ORAL route every day 07/09/2004 10/09/2014 multivitamin (THERAGRAN) Take one 0 0 per tablet tablet by mouth daily 09/25/2010 10/09/2014 niacin (NIASPAN take 1 tablet 60 11 EXTENDED-RELEASE) 1000 MG (1000MG) by CR tablet oral route every day at bedtime after a low-fat snack 02/18/2010 10/09/2014 niacin (NIASPAN take 2 tablet 60 11 EXTENDED-RELEASE) 500 MG (1000MG) by CR tablet oral route every day at bedtime after a low-fat snack 11/05/2009 10/09/2014 niacin (NIASPAN take 3 270 3 EXTENDED-RELEASE) 500 MG tablets by CR tablet ORAL route every day at bedtime after a low-fat snack 09/22/2009 10/09/2014 niacin (NIASPAN take 1 tablet 90 3 EXTENDED-RELEASE) 500 MG (500MG) by CR tablet ORAL route every day at bedtime after a low-fat snack 10/22/2010 10/09/2014 niacin (NIASPAN take 1 tablet 30 5 EXTENDED-RELEASE) 750 MG (750MG) by CR tablet oral route every day at bedtime after a low-fat snack 10/22/2010 10/09/2014 niacin (NIASPAN take 2 tablet 30 5 EXTENDED-RELEASE) 750 MG (1500MG) by CR tablet oral route every day at bedtime 12/18/2009 10/09/2014 niacin (NIASPAN take 2 tablet 180 3 EXTENDED-RELEASE) 750 MG (1500MG) by CR tablet ORAL route every day at bedtime 02/07/2007 10/09/2014 olmesartan-hydrochlorothi 0 0 azide (BENICAR HCT) 40-25 mg per tablet 02/07/2007 07/19/2017 omega-3 fatty acids (FISH Take two 0 0 OIL) 500 mg cap capsules by mouth twice per day 07/10/2004 10/09/2014 omega-3 fatty acids (FISH Take one 0 0 OIL) 500 mg cap tablet by mouth two times per day 08/23/2007 10/09/2014 omeprazole (PRILOSEC OTC) Take one 0 0 20 MG tablet tablet by mouth daily 07/09/2004 02/19/2015 sertraline (ZOLOFT) 50 MG Take one 0 0 tablet tablet by mouth daily 08/24/2007 10/09/2014 simvastatin (ZOCOR) 40 MG Take one 30 11 tablet tablet by mouth daily 10/27/2009 10/09/2014 simvastatin (ZOCOR) 80 MG take 1 tablet 30 5 tablet (80MG) by ORAL route every day in the evening 08/25/2009 10/09/2014 simvastatin (ZOCOR) 80 MG take 1 tablet 30 2 tablet (80MG) by ORAL route every day in the evening 09/19/2008 10/09/2014 simvastatin (ZOCOR) 80 MG take 1 tablet 30 11 tablet (80MG) by ORAL route every day in the evening 10/16/2012 10/09/2014 SYNVISC 16 mg/2 mL USE 0 injection DIRECTED. 10/20/2010 10/09/2014 tadalafil (CIALIS) 2.5 mg take 1 tablet 0 0 Tab (2.5MG) by oral route as needed 07/09/2004 10/09/2014 vardenafil (LEVITRA) 20 PRN 0 0 MG tablet documented as of this encounter Plan of Treatment Not on filedocumented as of this encounter Procedures Comments Procedure Name Priority Date/Time Associated Diag nosis LAB SUMMARY 10/01/2014 5:20 PM CDT VITAMIN D, 25-HYDROXY Routine 09/30/2014 9:38 PM CDT CBC AND DIFF (MANUAL DIFF Routine 09/30/2014 IF NECESSARY) 9:38 PM CDT documented in this encounter Results * LAB SUMMARY (10/01/2014 5:20 PM CDT) Narrative Performed At This result has an attachment that is n ot available. Ordered by an unspecified provider. * CBC and Diff (manual diff if necessary) (09/30/2014 9:38 PM CDT) WBC 5.70 4.00 - 11.00 TH/uL [facility] RBC 4.17 (L) 4.31 - 5.84 MIL/uL [facility] Hemoglobin 13.1 13.0 - 17.0 g/dL [facility] Hematocrit 39 (L) 40 - 50 % [facility] MCV 94 80 - 99 fL [facility] MCH 31 27 - 34 pg [facility] MCHC 34 32 - 36 % [facility] RDW 13.0 9.0 - 14.5 % [facility] Platelet Count 138 (L) 140 - 400 TH/uL [facility] MPV 10.6 9.4 - 12.3 fL [facility] Nucleated RBCs 0 0 - 0 /100 [facility] % Neutrophils 61 45 - 78 % [facility] %Lymphocytes 27 15 - 47 % [facility] %Monocytes 7 0 - 12 % [facility] %Eosinophils 4 0 - 7 % [facility] %Basophils 0 0 - 2 % [facility] % Imm Grans 0 0 - 1 % [facility] # Granulocytes 3.49 1.70 - 6.80 TH/uL [facility] # Lymphocytes 1.54 1.00 - 3.30 TH/uL [facility] # Monocytes 0.42 0.20 - 0.90 TH/uL [facility] # Eosinophils 0.22 0.00 - 0.40 TH/uL [facility] # Basophils 0.02 0.00 - 0.10 TH/uL [facility] Specimen Performing Organization Address City/State/Zipcode Ph one Number [address] [address] LABORATORIES * Vitamin D, 25-Hydroxy (09/30/2014 9:38 PM CDT) Vitamin D 44 ng/mL [facility] 25Hydroxy Comment: [facility] Vitamin D 25-Hydroxy: LABORATORIES Severe deficiency < 13 ng/mL Mild to moderate deficiency 13 - 24 ng/mL Optimum level 25 - 80 ng/mL Toxicity possible >80 ng/mL Specimen Performing Organization Address City[facility] Ph one Number [address] [address] LABORATORIES documented in this encounter Visit Diagnoses Not on filedocumented in this encounter
--- OUTSIDE RECORDS SUMMARY | 2019-09-14 20:37 | XMS REPORT | Encounter Summary ---
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; Essential hypertension; Encounter for therapeutic drug monitoring; Type 2 diabetes mellitus without complication (HCC) 03/14/2015 Office Visit [facility] [address] [place] [address] Social History Date Tobacco Use Types Packs/Day [...] Signs Reading Time Taken Comments Vital Sign 140/70 03/14/2015 12:05 PM NAIL PROFESSIONAL Blood Pressure 60 03/14/2015 12:05 PM NAIL PROFESSIONAL Pulse - - Temperature - - Respiratory Rate - - Oxygen Saturation - - Inhaled Oxygen Concentration 87.5 kg (193 lb) 03/14/2015 12:05 PM NAIL PROFESSIONAL Weight 170.2 cm (5' 7") 03/14/2015 12:05 PM NAIL PROFESSIONAL Height 30.23 03/14/2015 12:05 PM NAIL PROFESSIONAL Body Mass Index documented in this encounter Patient Instructions * Patient Instructions* Stephania Whitaker RN FNP-MANFRED - 03/14/2015 12:30 PM NAIL PROFESSIONAL Have a lean protein and at least two vegetables at each meal. Limit fruits to f our servings daily (1/2 cup = 1 serving, 1 banana = 2 servings, 1 tennis ball s ize fruit = 1 serving). Decrease simple carbohydrates and processed sugars and aim to get the majority of your carbohydrates and sugars from vegetables and fru its. Follow-up with associate store director. Decrease cereal and bread consumption. Continue with excellent exercise regimen. Continue with current medications. PROFESSIONAL documented in this encounter Progress Notes * Stephania Whitaker RN FNP-BC - 03/14/2015 12:07 PM NAIL PROFESSIONAL [facility] Note Appointment Date: 03/14/2015 Benjie Montano DO [address] [place] [id number] RE: Carl Minor : 1935 Visit provider: KIMANI Styles Dear Benjie Montano DO, I had the pleasure of seeing Carl Minor in the office today. He is a 80 y.o. ma le and presents with the following chief complaints: Coronary Artery Disease; Dy slipidemia; and Hypertension HPI: Mr. Minor is an 80-year-old male who has a history of open heart surgery in 8. A PET study in November 2012 demonstrated a localized area of nontransmural injury and minimal associated ischemia laterally in the distribution of the obt use marginal branch vessel territory with an LVEF of 45%. He does have a histor y of dyslipidemia, hypertension and type 2 diabetes. He does an excellent job w ith exercise. He is asymptomatic. He does report that he has had some neurolog ical concerns. He states that he had to use his phone navigation after he drove himself to the garage here at the [facility] in order to get to our office. He reports that he does use his phone navigation on occasions when he is not ab le to remember how to get places. This is quite concerning as he has been coming to our office for several years now. He does report that there was a difference in his neurological status. He states there is dementia that runs in his fami ly, and he is concerned in regards to dementia. Patient Active Problem List Diagnosis SNOMED CT(R) Diabetic peripheral neuropathy DIABETES MELLITUS Essential hypertension ESSENTIAL HYPERTENSION Hyperlipidemia HYPERLIPIDEMIA Type II diabetes mellitus with complication DIABETES MELLITUS Nuclear senile cataract, bilateral NUCLEAR SENILE CATARACT Vitamin D deficiency VITAMIN D DEFICIENCY Generalized osteoarthritis of multiple sites DEGENERATIVE JOINT DISEASE INVO LVING MULTIPLE JOINTS Renal artery stenosis ARTERIOSCLEROSIS OF RENAL ARTERY Esophageal reflux GASTROESOPHAGEAL REFLUX DISEASE Erectile dysfunction of non-organic origin PSYCHOSEXUAL DYSFUNCTION ASSOCIAT ED WITH INHIBITED SEXUAL EXCITEMENT Peripheral vascular disease PERIPHERAL VASCULAR DISEASE Coronary atherosclerosis CORONARY ATHEROSCLEROSIS Carotid artery stenosis CAROTID ARTERY OBSTRUCTION Obstructive sleep apnea OBSTRUCTIVE SLEEP APNEA SYNDROME Benign prostatic hypertrophy BENIGN PROSTATIC HYPERTROPHY WITHOUT OUTFLOW OB STRUCTION Benign colonic polyp BENIGN NEOPLASM OF COLON Coronary artery disease involving lovelock coronary artery without angina pect karyn DISORDER OF CORONARY ARTERY Dyslipidemia DYSLIPIDEMIA Hyperglycemia HYPERGLYCEMIA Type 2 diabetes mellitus without complication TYPE 2 DIABETES MELLITUS Past Medical History Diagnosis Date Esophageal reflux Diverticulosis of large intestine 01/2010 Benign colonic polyp 01/2010 Diabetic peripheral neuropathy Obstructive sleep apnea Essential hypertension Renal artery stenosis Description: s/p stent Peripheral vascular disease Coronary atherosclerosis Description: s/p 4 vv CABG 09/02/07 ICD-10 conversion Carotid artery stenosis Generalized osteoarthritis of multiple sites Squamous cell carcinoma of skin 2001 Description: s/p resection Benign prostatic hypertrophy Hyperlipidemia Nuclear senile cataract, bilateral 05/2009 Vitamin D deficiency Erectile dysfunction of non-organic origin Type II diabetes mellitus Former smoker PFO (patent foramen ovale) DJD (degenerative joint disease) Osteoporosis GERD (gastroesophageal reflux disease) Anxiety Past Surgical History Procedure Laterality Date Dental surgery Dental Surgery; Description: 2 infected molars extracted Appendectomy 1998 Coronary artery bypass graft 08/31/2007 Left internal mammary artery to left anterior descending, saphenous vein Skin cancer excision 2001 Squamous cell Cancer Removal (2001) Colectomy 1998 Colon resection (1998) Renal artery stent Bilateral 02/13/2007 Bilateral renal stent -Right Renal Atery from 99% tp 0% post 5.5 x 18mm Hercul ink Plus Stent post-dilated with a 6.5 mm balloon secondary to marked poststenot ic dilatation. Final Medications: Current Outpatient Prescriptions Medication Sig Dispense Refill aspirin 81 MG EC tablet take 1 tablet (81MG) by oral route every day 30 0 atorvastatin (LIPITOR) 40 MG tablet TAKE ONE TABLET BY MOUTH EVERY DAY PREFE RABLY IN THE EVENING 90 tablet 2 CARDIOTABS CARDIOTEA capsule TAKE 2 TABLETS (for 662.5 mg) BY MOUTH DAILY 60 cholecalciferol, vitamin D3, (VITAMIN D3) 1,000 unit capsule Take 3 tablets by oral route daily 30 0 fexofenadine (TOÑO) 180 MG tablet take 1 tablet by oral route every day, as needed. 30 0 green tea leaf extract (CARDIOTABS CARDIOTEA) capsule two capsules by mouth daily with food 0 0 hyaluronate (SYNVISC) 16 mg/2 mL injection prn 1 0 losartan (COZAAR) 50 MG tablet Take one tablet (50 mg total) by mouth daily. 90 tablet 0 metoprolol succinate (TOPROL-XL) 50 MG 24 hr tablet TAKE ONE TABLET BY MOUTH ONCE A DAY 90 tablet 2 omega-3 fatty acids (FISH OIL) 500 mg cap Take two capsules by mouth twice p er day 0 0 omeprazole (PRILOSEC OTC) 20 MG tablet Take one tablet by mouth daily 0 0 sertraline (ZOLOFT) 50 MG tablet TAKE 1 TABLET DAILY. 30 No current facility-administered medications for this visit. Allergies Allergen Reactions Lisinopril Reaction: cough; Niacin Thrombocytopenia Adverse Reaction Reaction: reduced platelets; Comment: Niaspan Extended-Release Family History Problem Relation Age of Onset Stroke Mother Stroke Syndrome; Stroke Other Family History; Stroke Syndrome; Dementia Mother Dementia; Dementia Sister Dementia; Coronary artery disease Father Coronary Artery Disease; Brother at 73 y/o and Father at 63 y/o Coronary artery disease Brother Coronary Artery Disease; Brother at 73 y/o and Father at 63 y/o Diabetes type II Mother Type 2 Diabetes Mellitus; Diabetes type II Maternal Grandmother Type 2 Diabetes Mellitus; Other Brother Diagnosed with HTN, Other Father Diagnosed with Heart Disease Other Mother Diagnosed with Dementia Other Mother Diagnosed with Diabetes, Social History: History Substance Use Topics Smoking status: Former Smoker Smokeless tobacco: Not on file Alcohol Use: Yes Comment: weekly Review of Systems Constitution: Negative for fever, malaise/fatigue and night sweats. HENT: Negative for nosebleeds. Eyes: Negative for blurred vision. Cardiovascular: Negative for chest pain, irregular heartbeat and leg swelling. Respiratory: Positive for snoring. Negative for cough, shortness of breath and w heezing. Endocrine: Negative for cold intolerance and heat intolerance. Hematologic/Lymphatic: Negative for bleeding problem. Bruises/bleeds easily. Skin: Negative for rash. Musculoskeletal: Negative for joint pain, muscle cramps and muscle weakness. Gastrointestinal: Negative for dysphagia, nausea and vomiting. Neurological: Negative for excessive daytime sleepiness, dizziness, light-headed ness, loss of balance and numbness. Psychiatric/Behavioral: Negative for depression. All other systems reviewed and are negative. Vital Signs 03/14/15 1205 BP: 140/70 Pulse: 60 Height: 1.702 m (5' 7") Weight: 87.544 kg (193 lb) BMI: Body mass index is 30.22 kg/(m^2). Physical Exam Constitutional: He is oriented to person, place, and time. He appears well-devel oped and well-nourished. Neck: Normal range of motion. Cardiovascular: Normal rate. Pulmonary/Chest: Effort normal. Musculoskeletal: Normal range of motion. Neurological: He is alert and oriented to person, place, and time. Skin: Skin is warm and dry. Psychiatric: He has a normal mood and affect. His behavior is normal. Judgment a nd thought content normal. Vitals reviewed. Labs: CHOLESTEROL Date Value 03/14/2015 131 05/02/2014 133 0 04/10/2013 133 0 HDL CHOLESTEROL Date Value 03/14/2015 42 mg/dL 05/02/2014 39 0* 12/19/2013 40 0 TRIGLYCERIDES Date Value 03/14/2015 126 mg/dL 05/02/2014 100 0 12/19/2013 86 0 LDL CHOLESTEROL Date/Time Value Ref Range Status 03/14/2015 12:12 PM 64 mg/dL Final 05/02/2014 12:00 AM 70 0 Final 12/19/2013 12:00 AM 64 0 Final Lab Results Component Value Date HGBA1C 6.5 03/14/2015 Lab Results Component Value Date ALT 32 10/16/2012 LABORATORY DATA: AST of 28. Most Recent Result within the last 7 days Lab Units 03/14/15 1212 GLUCOSE mg/dL 122 Exercise: Cardio rehab and circuit net trainer 20 minutes 3 times a week DIET: Recently, he has been having increased amount of oatmeal for breakfast. He cannot recall what he had yesterday for lunch. He typically does have an tequila le every day at some point during the day. Dinner last night he reports was a h amburger and cooked vegetables and unsweetened tea, and he had 2 ounces of whisk ey. Encounter Diagnoses Name Primary? 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 Coronary artery disease, without anginal symptoms. We will continue with st rict risk factor management. 2. Dyslipidemia, optimally controlled. We will continue the same cholesterol-l owering medications. 3. Hypertension, optimally controlled. This is a higher blood pressure reading than he has had in the past. We will continue to monitor at each visit. 4. Body mass index 30.22 with a waist circumference of 39 inches. Mr. Minor i s recently up 4 pounds. He will plan on working on a 5-pound weight loss. 5. The 25-hydroxyvitamin D blood test September 2014 was optimal at 44. He will con tinue with the same vitamin D supplement. 6. Type 2 diabetes mellitus. His hemoglobin A1c is up from 5.8 to 6.5%. He wi ll be more diligent with cutting back on simple and processed carbs and sugars i n his diet. 7. Recent neurological issues. He is quite astute and is aware that he has had more neurological mishaps as far as not knowing how to get places and is having use his phone navigation. This is quite concerning to him. As I mentioned abo ve, he was unable to recall how to get our office today despite coming here for several years and therefore had used his phone navigation to get him into our of fice. I have recommended he follow up with a neurologist for further assessment . Thank you for allowing me to participate in Carl Minor's care. If I can be of any further assistance, please do not hesitate to contact me. Sincerely, KIMANI Styles BKC:flc PROFESSIONAL documented in this encounter Plan of Treatment Not on filedocumented as of this encounter Procedures Comments Procedure Name Priority Date/Time Associated Diag nosis POCT LIPID PANEL Routine 03/14/2015 Dyslipidemia 12:12 PM NAIL PROFESSIONAL POCT AST Routine 03/14/2015 Dyslipidemia 12:12 PM NAIL PROFESSIONAL POCT ALANINE Routine 03/14/2015 Dyslipidemia AMINOTRANSFERASE (ALT) 12:12 PM NAIL PROFESSIONAL (SGPT) POCT GLYCOSYLATED Routine 03/14/2015 Hyperglycemi a HEMOGLOBIN (HGB A1C) 12:12 PM NAIL PROFESSIONAL documented in this encounter Results * POCT AST (03/14/2015 12:12 PM NAIL PROFESSIONAL) AST (SGOT), POC 28 Specimen Blood * POCT alanine aminotransferase (SGPT) (03/14/2015 12:12 PM NAIL PROFESSIONAL) ALT (SGPT), POC 29 Specimen Blood * POCT Lipid Panel (03/14/2015 12:12 PM NAIL PROFESSIONAL) Cholesterol 131 HDL Cholesterol 42 35 - 70 mg/dL Triglycerides 126 40 - 160 mg/dL LDL Cholesterol 64 mg/dL Non-HDL 89 Cholesterol Cholesterol/HDL 3.1 Ratio Glucose 122 mg/dL Specimen Blood * POCT glycosylated hemoglobin (Hb A1C) (03/14/2015 12:12 PM NAIL PROFESSIONAL) Hemoglobin A1C 6.5 % Specimen Blood documented in this encounter Visit Diagnoses Diagnosis Dyslipidemia Other and unspecified hyperlipidemia Hyperglycemia Other abnormal glucose Coronary artery disease involving nativ e coronary artery without angina pectoris Essential hypertension Unspecified essential hypertension Encounter for therapeutic drug monitori ng Type 2 diabetes mellitus without compli cation (HCC) documented in this encounter
--- OUTSIDE RECORDS SUMMARY | 2019-09-14 20:37 | XMS REPORT | Encounter Summary ---
Author Author [facility] Organization [facility] Address Unknown Phone Unavailable Care Team Providers Care Patient Care Name Role Phone Benjie Montano PCP Encounter Details Care Team Description Date Type Department Kecia Sanchez RN 05/11/2016 Abstract [facility] [address] [place] [address] Social History Date Tobacco Use Types Packs/Day [...]
--- OUTSIDE RECORDS SUMMARY | 2019-09-14 20:37 | XMS REPORT | Encounter Summary ---
Author Author [facility] Organization [facility] Address Unknown Phone Unavailable Care Team Providers Care Die Operator Name Role Phone Benjie Montano PCP Reason for Visit * Reason Comments cardiac testing Encounter Details Care Team Description Date Type Department Heike Hamlin LPN cardiac testing 02/20/2016 Telephone [facility] [facility] [address] [place] [address] Social History Date Tobacco Use Types Packs/Day [...] Telephone Encounter - Heike Hamlin LPN - 02/20/2016 11:42 AM CASHIER TICKET SELLING Pt spouse left v/m we did not know that he was suppose to have a stress test whe n we say TMB last time. The time period has but he has to have this test prior to seeing him again. Return call to pt and spouse informed your last office visit with MB was 014. He has to see a physician within 90 days to schedule the test. states he di d see TMB last year. I am sorry but I will give you the production planner scheduler number and tra nsfer you as well to schedule an appointment then the test can be reinstated. Pt transferred. IER TICKET SELLING documented in this encounter Plan of Treatment Not on filedocumented as of this encounter Visit Diagnoses Not on filedocumented in this encounter
--- OUTSIDE RECORDS SUMMARY | 2019-09-14 20:37 | XMS REPORT | Encounter Summary ---
Author Author [facility] Organization [facility] Address Unknown Phone Unavailable Care Team Providers Care Home Appliance Technician Name Role Phone Benjie Montano PCP Reason for Visit * Reason Comments Other Encounter Details Care Team Description Date Type Department Richard Freemna MD [address] [place] [address] [phone] Other 09/13/2015 Refill [facility] [address] [place] [address] Social History Date Tobacco Use Types Packs/Day [...]
--- OUTSIDE RECORDS SUMMARY | 2019-09-14 20:37 | XMS REPORT | Encounter Summary ---
Author Author [facility] Organization [facility] Address Unknown Phone Unavailable Care Team Providers Care Disaster Response Director Name Role Phone PCP Unavailable Reason for Referral * Diagnostic Imaging (Routine) Referred By Contact Referred To Contact Status Reason Specialty Diagnoses / Procedures Olman Frost MD [address] [place] [address] [facility] Cv Nuc Med [address] [place] [id number] Closed Cardiology Diagnoses Atherosclerosis of kasaan coronary artery without angina pectoris P rocedures CV MPI PET * Diagnostic Imaging (Routine) Referred By Contact Referred To Contact Status Reason Specialty Diagnoses / Procedures Olman Frost MD [address] [place] [address] Closed Diagnoses Essential hypertension P rocedures Electrocardiogram (ECG) Reason for Visit * Reason Comments Hypertension Peripheral Vascular Disease Encounter Details Care Team Description Date Type Department Olman Frost MD [address] [place] [address] [phone] Essential hypertension (Primary Dx); Obstructive sleep apnea; Renal artery stenosis; Peripheral vascular disease (HCC); Atherosclerosis of kasaan coronary artery without angina pectoris; Hyperlipidemia 02/19/2015 Office Visit [facility] [address] [place] [address] Social History Date Tobacco Use Types Packs/Day [...] Signs Reading Time Taken Comments Vital Sign 124/60 02/19/2015 12:12 PM ECHOCARDIOGRAPHER left sitting Blood Pressure 68 02/19/2015 12:12 PM ECHOCARDIOGRAPHER reg Pulse - - Temperature - - Respiratory Rate - - Oxygen Saturation - - Inhaled Oxygen Concentration 87.5 kg (193 lb) 02/19/2015 12:12 PM ECHOCARDIOGRAPHER Weight 170.2 cm (5' 7") 02/19/2015 12:12 PM ECHOCARDIOGRAPHER Height 30.23 02/19/2015 12:12 PM ECHOCARDIOGRAPHER Body Mass Index documented in this encounter Progress Notes * Jazmín [place], ECOLOGICAL ECONOMIST - 02/19/2015 12:14 PM ECHOCARDIOGRAPHER [facility] Appointment Date: 02/19/2015 Benjie Montano M.D. [address] [place] [address] RE: Carl Childers : 1935 Visit provider: Olman Frost MD Dear Dr. Montano: I had the pleasure of seeing Carl Childers in the office today. He is a 80 y.o. ma le and presents with the following chief complaints: Hypertension and Peripheral Vascular Disease HPI: He has not been having chest pain, shortness of breath, palpitations, syncope or presyncope. There have been no episodes to suggest TIA or stroke. He underwent coronary bypass surgery in 2007. In 2012, he had a myocardial perf usion study that showed nontransmural injury with associated ischemia laterally, probably in the distribution of an obtuse marginal branch. He had mild depress ion of left ventricular function with LVEF 45%. He has type 2 diabetes, hypertension, obesity, peripheral vascular disease, prio r renal artery stenting and mild carotid disease. Patient Active Problem List Diagnosis SNOMED CT(R) [...] OF COLON Past Medical History Diagnosis Date Esophageal reflux [...] Review of Systems Constitution: Negative for fever, weakness, malaise/fatigue and night sweats. HENT: Negative for nosebleeds. Eyes: Negative. [...] bruise/bleed easily. Skin: Negative for rash. Musculoskeletal: Negative for joint pain and myalgias. Gastrointestinal: Negative for dysphagia, hematochezia, nausea and vomiting. Genitourinary: Negative for hematuria. Neurological: Negative for brief paralysis, disturbances in coordination, excess mallika daytime sleepiness, dizziness, focal weakness, light-headedness, loss of bal ance and numbness. Psychiatric/Behavioral: Negative for depression. All other systems reviewed and are negative. Vital Signs 02/19/15 1212 BP: 124/60 Pulse: 68 Height: 1.702 m (5' 7") Weight: 87.544 [...] He has a normal mood and affect. CHOLESTEROL (0) Date Value 05/02/2014 133 04/10/2013 133 06/16/2012 116 HDL CHOLESTEROL (0) Date Value 05/02/2014 39* 12/19/2013 40 09/05/2013 39* TRIGLYCERIDES (0) Date Value 05/02/2014 100 12/19/2013 86 09/05/2013 132* LDL CHOLESTEROL Date/Time Value Ref Range Status 05/02/2014 12:00 AM 70 0 Final 12/19/2013 12:00 AM 64 0 Final 04/10/2013 10:22 AM 69 0 Final EKG: Normal Sinus Rhythm at 66 bpm, RBBB Encounter Diagnoses Name Primary? Essential hypertension Yes Obstructive sleep apnea Renal artery stenosis Peripheral vascular disease Atherosclerosis of kasaan coronary artery without angina pectoris Hyperlipidemia Impression and Plan: 1. Coronary artery disease: He is now approximately 7 years after bypass surge ry. He does have residual ischemia post-surgery. He is asymptomatic. No testi ng indicated this year. Probably next year I will have him undergo stress testi ng once again. He evidently has silent ischemia. 2. Dyslipidemia: His lipids are satisfactory. [facility]. 3. Type 2 diabetes: Recent A1c was 6.6. 4. Hypertension: He brought a log of his blood pressures, which all look satis factory. 5. Obesity: He is slowly gaining weight. We discussed this at length today. 6. Possible early dementia: He is concerned about memory loss. I recommended that he see a neurologist. Thank you for allowing me to participate in Carl Childers's care. If I can be of any further assistance, please do not hesitate to contact me. Sincerely, Olman Frost MD CARDIOGRAPHER documented in this encounter Plan of Treatment Order Schedule Name Type Priority Associated Diag noses 1 Occurrences starting 02/19/2015 until 02/19/2016 CV MPI PET Cardiac Routine Atherosclerosis of kasaan Services coronary artery without angina pectoris documented as of this encounter Procedures Comments Procedure Name Priority Date/Time Associated Diag nosis ECG Routine 02/19/2015 Essential hyper tension 12:17 PM ECHOCARDIOGRAPHER documented in this encounter Results * Electrocardiogram (ECG) (02/19/2015 12:17 PM ECHOCARDIOGRAPHER) Specimen Narrative Performed At [facility] Test Date: 2015-02-19 Pat Name: CARL CHILDERS Department: [facility] Room: Gender: Male Patented Hogshead Assembler: [id number] : 1935 Requested By: OLMAN FROST Order Number: [id number] Reading MD: Olman Frost Measurements Intervals [place] Rate: 66 P: 72 NV: 172 QRS: 33 QRSD: 136 T: 29 QT: 404 QTc: 424 Interpretive Statements SINUS RHYTHM RIGHT BUNDLE BRANCH BLOCK No previous ECG available for compariso n Electronically Signed On 02-19-2015 14: 50:57 ECHOCARDIOGRAPHER by Olman Frost Performing Organization Address City/State/Zipcode Ph one Number [facility] documented in this encounter Visit Diagnoses Diagnosis Essential hypertension Unspecified essential hypertension Obstructive sleep apnea Obstructive sleep apnea (adult) (pediat valeria) Renal artery stenosis Atherosclerosis of renal artery Peripheral vascular disease (HCC) Unspecified peripheral vascular disease Atherosclerosis of kasaan coronary edwina ry without angina pectoris Hyperlipidemia Other and unspecified hyperlipidemia documented in this encounter
--- OUTSIDE RECORDS SUMMARY | 2019-09-14 20:37 | XMS REPORT | Encounter Summary ---
Author Author [facility] Organization [facility] Address Unknown Phone Unavailable Care Team Providers Care Artist'S Manager Name Role Phone Hailey Blackhleen PCP Encounter Details Care Team Description Date Type Department Stephania Whitaker RN STAFF CLIMATE SCIENTIST-BC [address] [place] [address] 09/30/2014 [facility] Visit Social History Date Tobacco Use Types Packs/Day Years Used Never Smoker Sex Assigned at Date Recorded Not on file Industry Job Start Date Occupation Not on file Not on file Not on file Travel End Travel History Travel Start No recent travel history available. documented as of this encounter Last Filed Vital Signs Reading Time Taken Comments Vital Sign 130/70 09/30/2014 10:50 AM CDT Blood Pressure 71 09/30/2014 10:50 AM CDT Pulse - - Temperature - - Respiratory Rate - - Oxygen Saturation - - Inhaled Oxygen Concentration 85.7 kg (189 lb) 09/30/2014 10:50 AM CDT overweight Weight 170.2 cm (5' 7") 09/30/2014 10:50 AM CDT Height 29.6 09/30/2014 10:50 AM CDT Body Mass Index documented in this encounter Progress Notes * Stephania Whitaker RN STAFF CLIMATE SCIENTIST-C - 09/30/2014 10:30 AM CDT [facility] [address] [place] [address] September 30, 2014 Benjie Montano DO [address] [place] [address] FAX: RE: CARL CHILDERS : 1935 CHART #: [id number] Visit Provider: Gita Whitaker, RN, DNP, STAFF CLIMATE SCIENTIST-C Visit Location: [facility] Dear Dr. Montano: I had the pleasure of seeing CARL CHILDERS in the [facility] for cardiovascular medical management. He is 79 years of age and presents with the following chief complaints: coronary artery disease, dyslipidemia, and hyperten jeanne. HPI: The patient is an 79-year-old male who has history of open heart surgery in 2007 . PET study in November of 2012 demonstrated localized area of nontransmural i njury and minimal associated ischemia laterally in the distribution of the obtus e marginal branch vessel territory with an LV-EF of 45%. He does have a history of dyslipidemia, hypertension and type 2 diabetes mellitus. He does report kno wing when he has some dietary indiscretion. He had a vitamin D level in 2014 of 36 which was sufficient. He reports his is requesting that he recheck his vitamin D level at today's visit. We typically do this once a year in the winter months. He also reports that his is requesting a CBC with p maria elena as he has had some thrombocytopenia in the past. Risk factors include: Male greater than 45 years old HDL less than 40 Diagnosed with Type 2 (Adult Onset) diabetes Hypertension Dyslipidemia Family hx (CAD < 60 Yo) Formerly smoked 2.00 pack(s) per day for 25.00 years(50.00 pack years) quit in 978. Known history of coronary artery disease. Laboratory Results from today's visit are as follows: Date Collected: 09/30/2014 Fasting: Fasting Total Cholesterol: 124 HDL: 35 LDL: 66 Triglycerides: 115 Ratio: 3.54 Glucose 123 HbA1c 5.8 ALT 19 AST 28 Final Medications: Atorvastatin Calcium 40 Mg Take 1 tablet by mouth daily *Hold x 3 weeks and call Vitamin D 1,000 Unit Take 3 tablets by oral route daily Suzie 180 Mg take 1 tablet by oral route every day, as needed. Cozaar 50 Mg take 1 tablet (50MG) by oral route every day Toprol Xl 50 Mg take 1 tablet (50MG) by oral route every day Aspirin 81 Mg take 1 tablet (81MG) by oral route every day CardioTabs CardioWhey once daily Prilosec Otc 20 Mg Take one tablet by mouth daily Cardio Tea two capsules by mouth daily with food Emerado-3 Fatty Acids Take two capsules by mouth twice per day Zoloft 50 Mg Take one tablet by mouth daily Synvisc prn Allergies: Allergy Comment Reaction Niacin Niaspan Extended-release Reduced Platelets Lisinopril Cough Past Medical History: Anxiety Cholelithiasis Obesity Osteoporosis GERD Perforated diverticulum Osteoarthritis Depression Renal artery stenosis Osteopenia DJD Erectile Dysfunction Diverticulosis Colon polyps Diabetic peripheral neuropathy BPH Squamous cell CA 2001 Sleep Apnea on CPAP 2003 Past Surgical History: Colon resection 1998 Appendectomy 1998 Squamous cell Cancer Removal 2001 Removal of 2 infected molars 2010 Family History: Brother Diagnosed with HTN. Mother Cause of was CVA at age 82. Mother Diagnosed with Diabetes. Mother Diagnosed with Dementia. Brother Cause of was CRF at age 67. Father Cause of was [place] at age 62. Brother Cause of was CABG at age 71. Sister Cause of was CA at age 86. Father Diagnosed with Heart Disease. Social History: Marital Status: Children: 3 Occupation: Retired Advance Directives: The patient has a living will that was executed on 8 Diet: Low fat/chol, Low salt Exercise: Regular, Cardio Rehab 1 hr x 3 day/wk, Circuit Salary And Wage Administrator 20-30 min 3x/w k, Stationary Bike 30 min daily, Elliptical 15-30 min 3 day/wk, Bicycle 2-3 day Tobacco: Former user of cigarettes 2.00 pack(s) per day for 25.00 year(s). Joe t in 1977 Alcohol: Currently drinks 1 drinks of hard liquor daily Caffeine: Caffeine use: 3 cups of coffee ROS: 12-point review of systems is negative with the following exceptions: Pulmonary: Sleep apnea Physical Exam: Vital Signs The patient is 5ft 7in tall, and weighs 189lbs. The BMI is 29.60. B lood pressure taken in the left arm is 130/70 mmHg in the sitting position. The pulse is 71. The rhythm is regular. Const The patient is an overweight male. Pulm The respiratory pattern is nonlabored. M/S The patient's gait is normal. Neuro/Psych The patient is alert and oriented to time, person and place. The pa tient's mood is normal. No aphasia is apparent by exam. Exercise: Stationary Bike for 30 minutes twice weekly. Cardiac rehabilitation three times per week Summary and Recommendations: 1. Coronary artery disease without anginal symptoms. Will continue with strict risk factor management. 2. Dyslipidemia. Triglycerides and LDL are optimally controlled. HDL is subopt imal. He will continue with his current exercise regimen. He will plan on work ing on a 5 pound weight loss. Will reassess his cholesterol profile in four mon ths and he will continue with the same cholesterol lowering medication. 3. Hypertension, optimally controlled. Continue same blood pressure lowering me dications. He brought documented blood pressures from cardiac rehab that range anywhere from 90s-120s/50s-60s. 4. Body mass index (BMI) 29.60 with a waist circumference of 37 inches. The robson cordoba's weight remains one risk factor that has not been optimally controlled. I have strongly encouraged a 5 pound weight loss over the next four months. 5. A 25 hydroxy vitamin D blood test April of 2014 was sufficient at 36. We w ill assess his vitamin D level at today's visit. Since that time he has increas ed his vitamin D3 to 3,000 iu daily. 6. Type 2 diabetes mellitus. Fasting blood sugar is optimal at 123 and hemoglobi n A1c demonstrates excellent control of his blood sugars at 5.8%. In fact, this is down from a prior hemoglobin A1c of 6.6% to 5.8%. He has brought documented blood sugars from home that have all been optimal in the morning. Testing Ordered on Today's Visit: 25 - OH Vit D Today CBC w/ Diff w/ Plt Today Differential Today Next Follow- up Visit: In 4 Months We will apprise you of the above test results and further recommendations as the y are available. Thank you for allowing us to participate in the care of this nice patient. Nohemi tao do not hesitate to call should you have questions or concerns. Sincerely, Gita Whitaker RN, JEARLD, STAFF CLIMATE SCIENTIST-C Supervising physician available for consultation is: Richard BERMUDEZ/aps/mg/es cc: CARL CHILDERS [address], [place] [address] F: 10/09/2014 documented in this encounter Plan of Treatment Not on filedocumented as of this encounter Visit Diagnoses Not on filedocumented in this encounter
--- OUTSIDE RECORDS SUMMARY | 2019-09-14 20:37 | XMS REPORT | Encounter Summary ---
Author Author [facility] Organization [facility] Address Unknown Phone Unavailable Care Team Providers Care Film Technician Name Role Phone Charmaine Black PCP Reason for Visit * Reason Comments Medication Refill Encounter Details Care Team Description Date Type Department Stephania Whitaker RN [facility] [address] [place] [address] Medication Refill 10/09/2014 Refill [facility] [address] [facility] [address] [place] [address] Social History Date Tobacco Use Types Packs/Day [...]
--- OUTSIDE RECORDS SUMMARY | 2019-09-14 20:37 | XMS REPORT | Encounter Summary ---
Author Author [facility] Organization [facility] Address Unknown Phone Unavailable Care Team Providers Care Insulation Nozzleman Name Role Phone Charmaine Black PCP Encounter Details Care Team Description Date Type Department 05/23/2014 Hist-Telephone [facility] Social History Date Tobacco Use Types Packs/Day Years Used Never Assessed Sex Assigned at Date Recorded Not on file Industry Job Start Date Occupation Not on file Not on file Not on file Travel End Travel History Travel Start No recent travel history available. documented as of this encounter Progress Notes * Provider, MD Luc - 05/23/2014 2:14 PM CDT Recorded as Task Date: 05/20/2014 06:01 PM, Created By: Shade Pérez Task Name: Call Patient with results Assigned To: Shade Pérez Regarding Patient: CARL CHILDERS, Status: Active Comment: Shade Pérez - 20 May 2014 6:01 PM Patient Renal panel ok. Continue current therapy/most recent treatment recommendations. Heike Cardenas - 23 May 2014 2:14 PM TASK EDITED Spoke with patient. Informed of results and to continue current therapies. Ashley holm stated understanding. Electronically signed by:Heike Cardenas May 23 2014 2:14PM CONTROL SYSTEMS ENGINEER Co-participant documented in this encounter Plan of Treatment Not on filedocumented as of this encounter Visit Diagnoses Not on filedocumented in this encounter
--- OUTSIDE RECORDS SUMMARY | 2019-09-14 20:37 | XMS REPORT | Encounter Summary ---
Author Author [facility] Organization [facility] Address Unknown Phone Unavailable Care Team Providers Care Physician General Practice Name Role Phone Charmaine Black PCP Reason for Visit * Reason Comments Other Encounter Details Care Team Description Date Type Department Stephania Whitaker RN [facility]- [address] [place] [address] Other 10/31/2014 Refill [facility] [address] [facility] [address] [place] [address] Social History Date Tobacco Use Types Packs/Day [...]
--- OUTSIDE RECORDS SUMMARY | 2019-09-14 20:37 | XMS REPORT | Encounter Summary ---
Author Author [facility] Organization [facility] Address Unknown Phone Unavailable Care Team Providers Care Bar Finish Operator Name Role Phone Benjie Montano PCP Reason for Visit * Reason Comments Other Encounter Details Care Team Description Date Type Department Richard Freeman MD [address] [place] [address] [phone] Other 08/26/2015 Refill [facility] [address] [place] [address] Social History Date Tobacco Use Types Packs/Day [...]
--- OUTSIDE RECORDS SUMMARY | 2019-09-14 20:37 | XMS REPORT | Encounter Summary ---
Author Author [facility] Organization [facility] Address Unknown Phone Unavailable Care Team Providers Care Farm Operator Name Role Phone Charmaine Black PCP Reason for Visit * Reason Comments Medication Refill Encounter Details Care Team Description Date Type Department Tiana Santizo regional truck driver Refill 12/19/2014 Telephone [facility] [address] [place] [address] Social History Date Tobacco Use Types Packs/Day Years Used Never Smoker Sex Assigned at Date Recorded Not on file Industry Job Start Date Occupation Not on file Not on file Not on file Travel End Travel History Travel Start No recent travel history available. documented as of this encounter Miscellaneous Notes * Telephone Encounter - Tiana Santizo RN - 12/19/2014 10:03 AM CDT Pt needing losartan refill sent to [facility]. Did 90 days as he is due for his KATE with Dr. Holloway. documented in this encounter Plan of Treatment Not on filedocumented as of this encounter Visit Diagnoses Not on filedocumented in this encounter
--- OUTSIDE RECORDS SUMMARY | 2019-09-14 20:37 | XMS REPORT | Encounter Summary ---
Author Author [facility] Organization [facility] Address Unknown Phone Unavailable Care Team Providers Care Guest Relations Agent Name Role Phone Benjie Montano PCP Encounter Details Care Team Description Date Type Department Shade Pérez MD [address] [facility] [address], [place] [id number] 05/20/2014 [facility] Note [facility] [place] [address] [facility] [address] [place] [address] Social History Date Tobacco Use Types Packs/Day Years Used Never Assessed Sex Assigned at Date Recorded Not on file Industry Job Start Date Occupation Not on file Not on file Not on file Travel End Travel History Travel Start No recent travel history available. documented as of this encounter Miscellaneous Notes * Miscellaneous - Shade Pérez MD - 05/20/2014 9:26 AM CDT Verified Results Renal Panel 17May2014 11:51AM Shade Pérez Test Name Result Flag Reference Sodium 137 MEQ/L 133-147 Potassium 4.2 MEQ/L 3.5-5.3 Chloride 100 MEQ/L 96-112 Carbon Dioxide 27 MEQ/L 20-32 Anion Gap 11 5-17 Calcium 9.9 mg/dL 8.4-10.5 Albumin 4.4 g/dL 3.5-5.0 Blood Urea Nitrogen 34 mg/dL H 7-26 Creatinine 1.2 mg/dL 0.6-1.3 Gfrm Aa 70 60-200 Chronic Kidney Disease less than 60 mL/min/1.73 sq.m Kidney failure less than 15 mL/min/1.73 sq.m Gfrm Non Aa 58 L 60-200 Chronic Kidney Disease less than 60 mL/min/1.73 sq.m Kidney failure less than 15 mL/min/1.73 sq.m Phosphorus 3.4 mg/dL 2.5-4.5 Glucose 17May2014 11:51AM Shade Pérez Test Name Result Flag Reference Glucose 103 mg/dL H 70-100 * Miscellaneous - Shade Pérez MD - 05/20/2014 9:26 AM CDT Verified Results Renal Panel 17May2014 11:51AM Shade Pérez [May 20, 2014 6:01PM Shade Pérez] Renal panel ok. Continue current therapy/most recent treatment recommendations. Test Name Result Flag Reference Sodium 137 MEQ/L 133-147 Potassium 4.2 MEQ/L 3.5-5.3 Chloride 100 MEQ/L 96-112 Carbon Dioxide 27 MEQ/L 20-32 Anion Gap 11 5-17 Calcium 9.9 mg/dL 8.4-10.5 Albumin 4.4 g/dL 3.5-5.0 Blood Urea Nitrogen 34 mg/dL H 7-26 Creatinine 1.2 mg/dL 0.6-1.3 Gfrm Aa 70 60-200 Chronic Kidney Disease less than 60 mL/min/1.73 sq.m Kidney failure less than 15 mL/min/1.73 sq.m Gfrm Non Aa 58 L 60-200 Chronic Kidney Disease less than 60 mL/min/1.73 sq.m Kidney failure less than 15 mL/min/1.73 sq.m Phosphorus 3.4 mg/dL 2.5-4.5 Glucose 17May2014 11:51AM Shade Pérez [May 20, 2014 6:01PM Shade Pérez] Renal panel ok. Continue current therapy/most recent treatment recommendations. Test Name Result Flag Reference Glucose 103 mg/dL H 70-100 Signatures Electronically signed by : Heike Cardenas, ; May 23 2014 2:16PM COMPENSATION AGENT (Co-participa nt) documented in this encounter Plan of Treatment Not on filedocumented as of this encounter Visit Diagnoses Not on filedocumented in this encounter
--- OUTSIDE RECORDS SUMMARY | 2019-09-14 20:37 | XMS REPORT | Encounter Summary ---
Author Author [facility] Organization [facility] Address Unknown Phone Unavailable Care Team Providers Care Associate Programmer Analyst Name Role Phone Benjie Montano PCP Encounter Details Care Team Description Date Type Department Urvashi Chery MA 08/21/2015 Orders Only [facility] [address] [facility] [address] [place] [address] Social History Date Tobacco Use Types Packs/Day [...]
--- OUTSIDE RECORDS SUMMARY | 2019-09-14 20:37 | XMS REPORT | Encounter Summary ---
Author Author [facility] Organization [facility] Address Unknown Phone Unavailable Care Team Providers Care Cement Mason Maintenance Name Role Phone Benjie Montano PCP Encounter Details Care Team Description Date Type Department Stephania Whitaker RN FREIGHT CAR CLEANER- [address] [place] [address] 07/21/2015 Documentation [facility] [address] [facility] [address] [place] [address] Social History Date Tobacco Use Types Packs/Day [...]
--- OUTSIDE RECORDS SUMMARY | 2019-09-14 20:37 | XMS REPORT | Encounter Summary ---
Author Author [facility] Organization [facility] Address Unknown Phone Unavailable Care Team Providers Care Friction Saw Operator Name Role Phone Benjie Montano PCP Reason for Visit * Reason Comments Other Encounter Details Care Team Description Date Type Department Richard Freeman MD [address] [place] [address] [phone] Other 03/21/2015 Refill [facility] [address] [place] [address] Social History Date Tobacco Use Types Packs/Day [...]
--- OUTSIDE RECORDS SUMMARY | 2019-09-14 20:37 | XMS REPORT | Encounter Summary ---
Author Author [facility] Organization [facility] Address Unknown Phone Unavailable Care Team Providers Care Gold Letterer Name Role Phone Benjie Montano PCP Reason for Visit * Reason Comments Other Encounter Details Care Team Description Date Type Department Olman Holloway MD [address] [place], [place] [phone] Other 03/23/2016 Refill [facility] [address] [place] [address] Social History Date Tobacco Use Types Packs/Day Years Used Former Smoker Drinks/Week oz/Week Comments Alcohol Use weekly Yes Sex Assigned at Date Recorded Not on file Industry Job Start Date Occupation Not on file Not on file Not on file Travel End Travel History Travel Start No recent travel history available. documented as of this encounter Miscellaneous Notes * Telephone Encounter - Beatriz Adam LPN - 03/24/2016 8:00 AM IRRIGATION FOREMAN ARIADNA 03/14/15, scheduled for annual with [facility] on 05/13/16 Lipid panel 03/14/15; due and ordered POCT for Collection at annual Sending 90 days, 3 refills Kdriver GATION FOREMAN documented in this encounter Plan of Treatment Order Schedule Name Type Priority Associated Diag noses Ordered: 03/24/2016 POCT Lipid Panel Point of Care Routine Hyperlipidemi a, Testing Unspecified Hyperlipidemia Type documented as of this encounter Visit Diagnoses Diagnosis Hyperlipidemia, unspecified hyperlipide nery type documented in this encounter
--- OUTSIDE RECORDS SUMMARY | 2019-09-14 20:37 | XMS REPORT | Encounter Summary ---
Author Author [facility] Organization [facility] Address Unknown Phone Unavailable Care Team Providers Care Federal Judicial Law Clerk Name Role Phone Charmaine Black PCP Encounter Details Care Team Description [place] [address] [place] [address] [phone] 09/26/2014 [facility] - Hist [facility] Visit Social History Date Tobacco Use Types Packs/Day Years Used Never Smoker Sex Assigned at Date Recorded Not on file Industry Job Start Date Occupation Not on file Not on file Not on file Travel End Travel History Travel Start No recent travel history available. documented as of this encounter Progress Notes * Richard Freeman MD - 09/26/2014 10:04 AM CDT Release of Information RE: CARL CHILDERS : 1935 [facility] is requesting protected health informat ion from: Dr. Pérez, Purpose: Continuation of care Please release records to the following [facility] Office: [place] [facility] [address] [place] [address] Fax to : Attention :Hailey Chart Mail Messenger Please send the following: Most recent office visit letter, EKG, labs, including cholesterol, any cardiac t esting and/ or procedures, and most recent medication list. Thank you for your prompt attention to our request. This facsimile contains confidential information which may also be legally privi leged and which is intended only for the use of the individual or entity named a woody. If the reader of a facsimile is not the intended recipient or the employe e or agent responsible for delivering it to the intended recipient, you are here by on notice that you are in possession of confidential and privileged informati on. Any dissemination, distribution or copying of this facsimile is strictly pr ohibited. If you have received this facsimile in error, please immediately noti fy the sender by telephone and return the original facsimile to the sender at th e above address via the [employer]. Postal Service. documented in this encounter Plan of Treatment Not on filedocumented as of this encounter Visit Diagnoses Not on filedocumented in this encounter
--- OUTSIDE RECORDS SUMMARY | 2019-09-14 20:38 | XMS REPORT | Encounter Summary ---
Author Author [facility] Organization [facility] Address Unknown Phone Unavailable Care Team Providers Care Local City Driver Name Role Phone Charmaine Black PCP Encounter Details Care Team Description Date Type Department Stephania Whitaker RN FLOWER PICKER-BC [address] [place] [address] 05/09/2014 [facility] Visit Social History Date Tobacco Use Types Packs/Day Years Used Never Assessed Sex Assigned at Date Recorded Not on file Industry Job Start Date Occupation Not on file Not on file Not on file Travel End Travel History Travel Start No recent travel history available. documented as of this encounter Last Filed Vital Signs Reading Time Taken Comments Vital Sign 120/60 05/09/2014 1:46 PM PROPERTY INSURANCE CLAIMS EXAMINER Blood Pressure 60 05/09/2014 1:46 PM PROPERTY INSURANCE CLAIMS EXAMINER Pulse - - Temperature - - Respiratory Rate - - Oxygen Saturation - - Inhaled Oxygen Concentration 85.3 kg (188 lb) 05/09/2014 1:46 PM PROPERTY INSURANCE CLAIMS EXAMINER overweight Weight 170.2 cm (5' 7") 05/09/2014 1:46 PM PROPERTY INSURANCE CLAIMS EXAMINER Height 29.44 05/09/2014 1:46 PM PROPERTY INSURANCE CLAIMS EXAMINER Body Mass Index documented in this encounter Progress Notes * Stephania Whitaker RN FLOWER PICKER-C - 05/09/2014 1:30 PM PROPERTY INSURANCE CLAIMS EXAMINER [place] [facility] [address] [place] [id number] May 09, 2014 CHARMAINE BLACK MD [address] [facility] [place] [place] [address] RE: CARL CHILDERS : 1935 CHART #: [id number] Visit Provider: Gita Whitaker, RN, DNP, FLOWER PICKER-C Visit Location: [facility] I had the pleasure of seeing CARL CHILDERS in [facility] for cardiovascular medical management. He is 79 years of age and presents with the following chief complaints: coronary artery disease, dyslipidemia, and hyperten jeanne. HPI: Mr. Childers is an 79-year-old male who has a history of open heart surgery in 200 8. A PET study from 11/2012 showed a localized area of nontransmural injury and minimal associated ischemia laterally in the distribution of the obtuse marginal branch vessel territory, with an LVEF of 45%. He has a history of dyslipidemia, hypertension, and type 2 diabetes mellitus. Prior to our visit today, he did meet with our dietitian, Ms. Suzanna Peña to assist him with dietary modifica tions. He does an excellent job with exercise. He is asymptomatic. Risk factors include: Male greater than 45 years old HDL less than 40 Diagnosed with Type 2 (Adult Onset) diabetes Hypertension Dyslipidemia Family hx (CAD < 60 Yo) Formerly smoked 2.00 pack(s) per day for 25.00 years(50.00 pack years) quit in 978. Known history of coronary artery disease Laboratory Results from today's visit are as follows: Date Collected: 05/02/2014 Fasting: Fasting Total Cholesterol: 133 HDL: 39 LDL: 70 Triglycerides: 100 Ratio: 3.41 Glucose 116 HbA1c 6.6 ALT 27 AST 24 Final Medications: Atorvastatin Calcium 40 Mg Take [...] tablet (81MG) by oral route every day Cardiotabs Cardiowhey once daily Prilosec OTC 20 Mg Take one tablet by mouth daily Cardio Tea two capsules by mouth daily with food [place]-3 Fatty Acids Take two capsules by mouth [...] at age 66. Father Cause of was [place] at age 62. Father Diagnosed with Heart Disease. Brother Cause of was CABG at age 71. Sister Cause of was [place] at age 86. Social History: Marital Status: Children: 3 Occupation: Retired Advance Directives: The patient has a living will that was executed on 8 Diet: Low fat/chol, Low salt Exercise: Regular. Cardio Rehab 1 hr x 3 day/wk, Circuit Java Designer 20-30 min 3x /wk, Stationary Bike 30 min daily, Elliptical 15-30 min 3 day/wk, Bicycle 2-3 day/ Tobacco: Former user of cigarettes 2.00 pack(s) per day for 25.00 year(s). Quit in 1977 Alcohol: Currently drinks 1 drinks of hard liquor daily Caffeine: Caffeine use: 3 cups of coffee ROS: 12-point review of systems is negative with the following exceptions: Pulmonary: Sleep apnea Physical Exam: Vital Signs The patient is 5ft 7in tall, and weighs 188lbs. The BMI is 29.40. B lood pressure taken in the left arm is 120/60 mmHg in the sitting position. The pulse is 60. The rhythm is regular. Const The patient [...] 1. Coronary artery disease without anginal symptoms. We will continue with [facility] risk factor management. 2. Dyslipidemia. LDL and triglycerides were optimally controlled. HDL is subop timal. Prior HDL cholesterol was 40 and today it is 39. He will continue with his excellent exercise regimen. I would plan on working on a five pound weight loss over the next three to four months to assist with further HDL raising. 3. Hypertension, optimally controlled. We will continue with the same blood pre ssure lowering medications. Documented blood pressures range from 100s to 110s/ 50s to 60s. He has occasional systolic blood pressures in the 120s. 4. Body mass index of 29.40 with a waist circumference of [address] Karly Childers in the overweight category. I have strongly encouraged a five pound w eight loss. 5. A 25-hydroxy vitamin D blood test was 36. He will increase his vitamin D3 to 3,000 i.u. daily during the winter months. 6. Fasting blood sugar is 116 and hemoglobin A1C is up from 6.2 to 6.6%. He rep orts that he brought a dietary summary with him to see the certified pest control technician, Enid tao. I will ask Suzanna if she sees any cause for the reason for his hemoglobin A1C to increase from 6.2 to 6.6 or if there are any other recommendations she wi ll make as she just saw Mr. Childers before our visit who went over diet and nutri tion modifications in detail. He will also plan on concentrating on protein and vegetables at each of his meals and making sure he stays within four servings of fruit a day. Next Follow- up Visit: In 4 Months We will apprise you of the above test results and further recommendations as the y are available. Thank you for allowing us to participate in the care of this nice patient. Nohemi tao do not hesitate to call should you have questions or concerns. Sincerely, Gita Whitaker RN, JERALD, MALGORZATA-C Supervising physician available for consultation is: Richard Carbone M.D. [facility]:andrei cc: CARL LISETH [address] [place] [address] Shade Pérez MD [facility] [address] [place] [address] FAX: F: 05/14/2014 documented in this encounter Plan of Treatment Not on filedocumented as of this encounter Visit Diagnoses Not on filedocumented in this encounter
--- OUTSIDE RECORDS SUMMARY | 2019-09-14 20:38 | XMS REPORT | Encounter Summary ---
Author Author [facility] Organization [facility] Address Unknown Phone Unavailable Care Team Providers Care Deep Fryer Assembler Name Role Phone Charmaine Black PCP Encounter Details Care Team Description Date Type Department Olman Holloway MD [address] [address] 01/14/2014 [facility] [...] Signs Reading Time Taken Comments Vital Sign 108/60 01/14/2014 12:05 PM ELECTRIC POWER MACHINE OPERATOR Blood Pressure 57 01/14/2014 12:05 PM ELECTRIC POWER MACHINE OPERATOR Pulse - - Temperature - - Respiratory Rate - - Oxygen Saturation - - Inhaled Oxygen Concentration 83 kg (183 lb) 01/14/2014 12:05 PM ELECTRIC POWER MACHINE OPERATOR overweight Weight 170.2 cm (5' 7") 01/14/2014 12:05 PM ELECTRIC POWER MACHINE OPERATOR Height 28.66 01/14/2014 12:05 PM ELECTRIC POWER MACHINE OPERATOR Body Mass Index documented in this encounter Progress Notes * Olman Holloway MD - 01/14/2014 11:30 AM ELECTRIC POWER MACHINE OPERATOR [place] [facility] [address] [place] [address] January 14, 2014 CHARMAINE BLACK MD [address] [place] [address] [place] [address] RE: CARL CHILDERS : 1935 Chart #: [id number] Visit provider: Olman Holloway M.D. Visit location: [place] office Dear Dr. BLACK: I had the pleasure of seeing CARL CHILDERS in the office today. He is 78 years of age and presents with the following chief complaints: coronary artery disease. HPI: He denies chest pain, shortness of breath, palpitations, syncope or presyncope. There have been no episodes to suggest TIA or stroke. He is quite active physi sreekanth. He regularly attends cardiac rehab. He exercises on a treadmill and/or bicycle. [facility]. Problem List: Vitamin D Deficiency 08/24/2007 CAD MPI Stress Test Mild to moderate ischemia in the distribution of the left anterior descending coronary artery and right coronary artery occurring at a low workload. Markedly positive ST segment change at low workload. Normal left ventricular systolic function. LVEF at rest is 71%. 1. Patient received sublingual nitroglycerin early in the recovery period because of chest pain symp toms. 2. Test results were verbally communicated on date of dictation at 1525 h ours. 08/31/2007 CAD CABG Left internal mammary artery to left anterior descending, sa phenous vein to sequential to OM1 and OM2. Saphenous vein to posterior descending artery wit h a long vein patch anastomosis across the posterior descending artery lesion. Congenital heart disease-Patent foramen ovale 11/23/2012 COR PET-CT Localized area of nontransmural injury and minimal associa beto ischemia laterally, in the distribution of an obtuse marginal branch vessel territory. Mild depression of left ventricular systolic function, left ventricu lar ejection fraction 45%. The is the first myocardial perfusion imaging study s sachi the patients coronary artery bypass operation. DM Type 2 05/22/2004 Dyslipidemia 12/18/2009 Echo 1. Normal left ventricular systolic function, with an estimated ejection fraction of 65%. 2. Mild mitral and tricuspid regurgitation. 3. Jaki re left atrial dilatation. 4. Mildly elevated pulmonary pressure (39 mmHg). 5. Small PFO based on a color Doppler evaluation. Compared with the prior study da beto 10/13/2007 the degree of mitral regurgitation appears slightly less prominen t. 08/24/2007 EF MPI Rest EF: 71, Stress EF: 62 12/18/2009 EF Echo EF: 65 11/23/2012 EF PET-CT Rest EF: 45, Stress EF: 45 Hypertension Obesity 11/17/2006 PVD Aorto-Iiac Duplex 1. Moderate atherosclerosis within the abdomina l aorta. 2. Normal abdominal aorta dimensions. 3. Increased flow velocities in the dista l aorta (2.9 m/s) consistent with a significant stenosis. 4. Increased flow halina ocities in the right common iliac consistent with a 50-75% stenosis. 5. Increas ed flow velocity (3.6 m/s) is incidentally noted in the right renal artery. 12/30/2006 PVD CTA Runoff 1. High-grade stenosis in the proximal segment of the right renal artery (approximately 90% diameter reduction). 2. Highly localized area of dissection or penetrating ulcer in the distal abdominal aorta at the lev el of the inferior mesenteric artery. 3. Mild, scattered atherosclerotic diseas e in the iliac and femoral vessels. 4. Three-vessel runoff to the distal left a nd right lower extremities. 5. Please see the radiology report for details of t he nonvascular findings. 02/13/2007 PVD Renal angiography Bilateral renal stent -Right Renal Artery from 99% to 0% post 5.5 x 18mm Herculink Plus Stent post-dilated with a 6.5 mm balloo n secondary to marked post stenotic dilatation. 09/23/2008 PVD Renal Duplex Normal velocities in both renal arteries with no claudio dence for a significant stenosis, including the stent in the right renal artery. A cyst, measuring 1.4 cm x 1.5 cm, is present in the left kidney. No signifi cant change from 08/24/2007. 10/14/2009 PVD Carotid Duplex There is a >50% stenosis in the right ECA. Tobacco Abuse Former Past Medical History: Anxiety Cholelithiasis Obesity Osteoporosis GERD Perforated diverticulum Osteoarthritis Depression Renal artery stenosis Osteopenia DJD Erectile Dysfunction Diverticulosis Colon polyps Diabetic peripheral neuropathy BPH Squamous cell CA 2002 Sleep Apnea on CPAP 2004 Past Surgical History: Colon resection 1999 Appendectomy 1999 Squamous cell Cancer Removal 2001 Removal of 2 infected molars 2010 Final Medications: Suzie 180 Mg take 1 tablet by oral route every day, as needed. Atorvastatin Calcium 40 Mg take 1 tablet (40MG) by oral route every day Cozaar 50 Mg take 1 tablet (50MG) by oral route every day Toprol XL 50 Mg take 1 tablet (50MG) by oral route every day Aspirin 81 Mg take 1 tablet (81MG) by oral route every day CardioTabs CardioWhey once daily Prilosec OTC 20 Mg Take one tablet by mouth daily CardioTea two capsules by mouth daily with food Vitamin D 1,000 Unit Take 2 tablets by oral route daily [place]-3 Fatty Acids Take two capsules by mouth twice per day Zoloft 50 Mg Take one tablet by mouth daily Synvisc prn Allergies/Intolerances: Allergy Comment Reaction Niacin Niaspan Extended-release Reduced Platelets Lisinopril Cough Family History: Brother Diagnosed with HTN Mother Diagnosed with Diabetes, Diagnosed with Dementia, Cause of was CVA at age 82. Brother Cause of was CRF at age 67. Father Diagnosed with Heart Disease, Cause of was [place] at age 62. Brother Cause of was CABG at age 71. Sister Cause of was [place] at age 86. Social History: Marital Status: Children: 3 Occupation: Retired Advance Directives: The patient has a living will that was executed on 8 Diet: Low fat/chol, Low salt Exercise: Regular, Cardio Rehab 1 hr x 3 day/wk, Circuit [employer] 20-30 min 3x/w k, Stationary Bike 30 min daily, Elliptical 15-30 min 3 day/wk, Bicycle 2-3 day Tobacco: Former user of cigarettes 2.00 pack(s) per day for 25.00 year(s). Joe t in 1977 Alcohol: Currently drinks 1 drinks of hard liquor daily Caffeine: Caffeine use: 3 cups of coffee ROS: 12-point review of systems is negative with the following exceptions: Pulmonary: Snore, Sleep apnea Cardiovascular: Chest Discomfort Musculoskeletal/Dermatology: Arthralgias Hematology: Bleed or bruise easily Physical Exam: Vital Signs The patient is 5ft 7in tall, and weighs 183lbs. The BMI is 28.70. B lood pressure taken in the left arm is 108/60 mmHg in the sitting position. The pulse is 57. The rhythm is regular. Const The patient is an overweight male. HEENT The pupils are equal and round. The patient's sclerae are clear. There i s no corneal arcus. There are no xanthelasmas noted. The patient's neck veins are flat. There is no thyromegaly. Pulm Lungs are clear to auscultation. Cardiac Regular rate and rhythm. Normal S1 and S2. No murmur, rub, or gallop pre sent. Vasc The right and left carotid upstrokes are normal. There are normal right an d left femoral pulses. The right and left popliteal pulses are normal. EXT The extremities are warm to touch. There is no edema noted. Skin The skin is warm and dry. M/S The patient's gait is normal. Neuro/Psych The patient is alert and oriented to time, person and place. The pa tient's mood is normal. No aphasia is apparent by exam. EKG: Result: No change since last visit. Rhythm: Sinus Rate: 57 AV Conduction: Right bundle branch block Most Recent Lipids Available for Review: Date Collected: 12/19/2013 Fasting: Fasting Total Cholesterol: 121 HDL: 40 LDL: 64 Triglycerides: 86 Ratio: 3.02 Glucose: 125 ALT 27 HbA1C 6.2 QI: Patient has a diagnosis of coronary artery disease and is prescribed beta blocke r therapy. CCS Class: No angina. Patient has a diagnosis of coronary artery disease and is prescribed antiplatel et therapy. CCS Class: No angina. Impression and Plan: 1. Coronary artery disease: He is now approximately six years after coronary by pass surgery. He is asymptomatic. He had a myocardial perfusion study last fall that showed minima l ischemia laterally. No testing is indicated this year. 2. Dyslipidemia: His lipids are satisfactory. He [facility]. 3. Type 2 diabetes: This is under good management. 4. Hypertension: His blood pressure is under good control. 5. Obesity: He has done a good job of losing weight. He continues to work at [employer]. He does have an appointment with a dietitian in the near future. Testing ordered: Description Interval EKG Today Follow up: Olman Holloway M.D. 1 Year Thank you for allowing me to participate in CARL CHILDERS's care. If I can be of any further assistance, please do not hesitate to contact me. Sincerely, Olman Holloway M.D. TMB/kss/es cc: Shade Pérez MD [facility] [address] [address] F: 01/29/2014 TRIC POWER MACHINE OPERATOR documented in this encounter Plan of Treatment Not on filedocumented as of this encounter Visit Diagnoses Not on filedocumented in this encounter
--- OUTSIDE RECORDS SUMMARY | 2019-09-14 20:38 | XMS REPORT | Encounter Summary ---
Author Author [facility] Organization [facility] Address Unknown Phone Unavailable Care Team Providers Care Dealer Development Manager Name Role Phone Charmaine Black PCP Encounter Details Care Team Description Date Type Department Ricahrd Freeman MD [address] [facility] [address] [place] [address] [phone] 11/27/2013 [facility] [...]
--- OUTSIDE RECORDS SUMMARY | 2019-09-14 20:38 | XMS REPORT | Encounter Summary ---
Author Author [facility] Organization [facility] Address Unknown Phone Unavailable Care Team Providers Care Box Press Operator Name Role Phone Charmaine Black PCP Encounter Details Care Team Description Date Type Department Richard Freeman MD [address] [facility] [address] [place] [address] [phone] 11/12/2013 [facility] [...]
--- OUTSIDE RECORDS SUMMARY | 2019-09-14 20:38 | XMS REPORT | Encounter Summary ---
Author Author [facility] Organization [facility] Address Unknown Phone Unavailable Care Team Providers Care Insurance Sales Supervisor Name Role Phone Charmaine Black PCP Encounter Details Care Team Description Date Type Department 05/09/2014 [facility] Visit Social History Date [...]
--- OUTSIDE RECORDS SUMMARY | 2019-09-14 20:38 | XMS REPORT | Encounter Summary ---
Author Author [facility] Organization [facility] Address Unknown Phone Unavailable Care Team Providers Care Dehydrator Operator Name Role Phone Charmaine Black PCP Encounter Details Care Team Description Date Type Department Olman Holloway MD [address] [facility] [address] [place] [address] [phone] 01/12/2014 [facility] [...]
--- OUTSIDE RECORDS SUMMARY | 2019-09-14 20:38 | XMS REPORT | Encounter Summary ---
Author Author [facility] Organization [facility] Address Unknown Phone Unavailable Care Team Providers Care Watch And Clock Repairer Name Role Phone Charmaine Black PCP Encounter Details Care Team Description Date Type Department ProviderLuc MD [address] [place] [address] 12/19/2013 Hist-Other [facility] [address] [place] [address] Social History Date Tobacco Use Types Packs/Day [...] Procedure Name Priority Date/Time Associated Diag nosis LIPID PANEL Routine 12/19/2013 12:00 AM CDT HEMOGLOBIN A1C Routine 12/19/2013 12:00 AM CDT documented in this encounter Results * Lipid Panel (12/19/2013 12:00 AM CDT) Alk Phos Liver 121 0 OFFICE ENTERED Triglycerides 86 0 OFFICE ENTERED HDL Cholesterol 40 0 OFFICE ENTERED LDL Cholesterol 64 0 OFFICE ENTERED Cholesterol/HDL 302 0 OFFICE ENTERED Ratio Non-HDL 81 0 OFFICE ENTERED Cholesterol Specimen Performing Organization Address [facility] Ph one Number OFFICE ENTERED * Hemoglobin A1C (12/19/2013 12:00 AM CDT) Hemoglobin A1C 6.2 (A) 0 OFFICE ENTERED Specimen Performing Organization Address [facility] Ph one Number OFFICE ENTERED documented in this encounter Visit Diagnoses Not on filedocumented in this encounter
--- OUTSIDE RECORDS SUMMARY | 2019-09-14 20:38 | XMS REPORT | Encounter Summary ---
Author Author [facility] Organization [facility] Address Unknown Phone Unavailable Care Team Providers Care Physics Faculty Member Name Role Phone Charmaine Black PCP Encounter Details Care Team Description Date Type Department Iza Montoya RN ANP no forwarding address 11/19/2013 [facility] Visit Social [...]
--- OUTSIDE RECORDS SUMMARY | 2019-09-14 20:38 | XMS REPORT | Encounter Summary ---
Author Author [facility] Organization [facility] Address Unknown Phone Unavailable Care Team Providers Care Weed Cutter Name Role Phone Charmaine Black PCP Encounter Details Care Team Description Date Type Department Stephania Whitaker RN WILDLIFE POLICY PROFESSIONAL- [address] [place] [address] 02/16/2014 [facility] HISTORIC CLINI C Visit Social History [...]
--- OUTSIDE RECORDS SUMMARY | 2019-09-14 20:38 | XMS REPORT | Encounter Summary ---
Author Author [facility] Organization [facility] Address Unknown Phone Unavailable Care Team Providers Care Funeral Director Name Role Phone Charmaine Black PCP Encounter Details Care Team Description Date Type Department Stephania Whitaker RN KNOT CUTTER- [address] [place] [address] 11/27/2013 [facility] HISTORIC CLINI C Visit Social History Date [...]
--- OUTSIDE RECORDS SUMMARY | 2019-09-14 20:38 | XMS REPORT | Encounter Summary ---
Author Author [facility] Organization [facility] Address Unknown Phone Unavailable Care Team Providers Care Manager Marketing Communication Name Role Phone Charmaine Black PCP Encounter Details Care Team Description [place] [address] [place] [address] [phone] 01/02/2014 [facility] - Hist [facility] Visit Social History Date Tobacco Use Types Packs/Day Years Used Never Assessed Sex Assigned at Date Recorded Not on file Industry Job Start Date Occupation Not on file Not on file Not on file Travel End Travel History Travel Start No recent travel history available. documented as of this encounter Progress Notes * Richard Mcmanus MD - 01/02/2014 4:29 PM CDT Release of Information RE: CARL CHILDERS : 1935 [facility] is requesting protected health informat ion from: Dr Charmaine Black Purpose: Continuation of care Please release records to the following [facility] Office: [place] Office [address] [place] [id number] Fax to : Attention : Chart Inverform Machine Operator-Maura [phone] phone Please send the following: Most recent office [...]
--- OUTSIDE RECORDS SUMMARY | 2019-09-14 20:38 | XMS REPORT | Encounter Summary ---
Author Author [facility] Organization [facility] Address Unknown Phone Unavailable Care Team Providers Care Counter Help Name Role Phone Charmaine Black PCP Encounter Details Care Team Description Date Type Department Shade Pérez MD [address] [id number] [facility] [address] [place] [address] Social History Date Tobacco Use Types Packs/Day [...] Priority Date/Time Associated Diag nosis LAB SUMMARY 05/18/2014 6:45 AM CDT RENAL PANEL Routine 05/17/2014 11:51 AM CDT GLUCOSE Routine 05/17/2014 11:51 AM CDT documented in this encounter Results * LAB SUMMARY (05/18/2014 6:45 AM CDT) Narrative Performed At This result has an attachment that is n ot available. Ordered by an unspecified provider. * Glucose (05/17/2014 11:51 AM CDT) Glucose 103 (H) 70 - 100 mg/dL [facility] Specimen Blood Performing Organization Address City/State[facility] Ph one Number [address] [address] LABORATORIES * Renal Panel (05/17/2014 11:51 AM CDT) Sodium 137 133 - 147 MEQ/L [facility] Potassium 4.2 3.5 - 5.3 MEQ/L [facility] Chloride 100 96 - 112 MEQ/L [facility] Carbon Dioxide 27 20 - 32 MEQ/L [facility] Anion Gap 11 5 - 17 [facility] Calcium 9.9 8.4 - 10.5 mg/dL [facility] Albumin 4.4 3.5 - 5.0 g/dL [facility] Blood Urea 34 (H) 7 - 26 mg/dL [facility] Creatinine 1.2 0.6 - 1.3 mg/dL [facility] eGFR Male AA 70Comment: Chronic Kidney 60 - 200 [facility] Disease less than 60 REGIONAL mL/min/1.73 sq.m Kidney LABORATORIES failure less than 15 mL/min/1.73 sq.m eGFR Male 58 (L)Comment: Chronic Kidney 60 - 200 [facility] Non-AA Disease less than 60 REGIONAL mL/min/1.73 sq.m Kidney LABORATORIES failure less than 15 mL/min/1.73 sq.m Phosphorus 3.4 2.5 - 4.5 mg/dL [facility] LABORATORIES Specimen Blood Performing Organization Address City/State/Zipcode Ph one Number [address] [address] LABORATORIES documented in this encounter Visit Diagnoses Not on filedocumented in this encounter
--- OUTSIDE RECORDS SUMMARY | 2019-09-14 20:38 | XMS REPORT | Encounter Summary ---
Author Author [facility] Organization [facility] Address Unknown Phone Unavailable Care Team Providers Care Paint Line Production Supervisor Name Role Phone Charmaine Black PCP Encounter Details Care Team Description Date Type Department Shade Pérez MD [address] [address] [phone] 11/12/2013 Hist-Appointmen [facility] Social History Date Tobacco Use Types Packs/Day Years Used Never Assessed Sex Assigned at Date Recorded Not on file Industry Job Start Date Occupation Not on file Not on file Not on file Travel End Travel History Travel Start No recent travel history available. documented as of this encounter Last Filed Vital Signs Reading Time Taken Comments Vital Sign 110/68 11/12/2013 10:56 AM CDT Blood Pressure 86 11/12/2013 10:56 AM CDT Pulse - - Temperature - - Respiratory Rate - - Oxygen Saturation - - Inhaled Oxygen Concentration 85.7 kg (189 lb) 11/12/2013 10:56 AM CDT Weight 172.7 cm (5' 8") 11/12/2013 10:56 AM CDT Height 28.74 11/12/2013 10:56 AM CDT Body Mass Index documented in this encounter Progress Notes * Shade Pérez MD - 11/12/2013 11:00 AM CDT History of Present Illness Diabetes-[facility]: Reason for Visit: The patient's visit is for a routine clinic follow-up of Type 2 diabetes mellitus (Diagnosed around 2009). The patient's last clinic visit was 8 month(s) ago. Management changes made at t he last visit include ordering CMP and Ur MAB:Cr ratio. Symptoms: no polydipsia, no polyuria, no increased appetite, no weight loss, no fatigue and no episodes of hypoglycemia The patient presents with complaints of occasional episodes of blurred vision, d escribed as floaters. There is no known event that preceded symptom onset. Patient reports doing home measurements 1 time(s) per day. Home Measurement Read ings: The patients meter was downloaded and reviewed. Please see scanned meter r angie for annotations. Associated symptoms: appetite not increased, no nausea, no vomiting, no anorexia , no abdominal pain, no abnormal healing and no confusion. The patient is due for a urine microalbumin and a foot exam. Current treatment includes: aspirin (81 mg daily) and Losartan 50 mg daily, ator vastatin 40 mg at bedtime daily, CardioTabs omega 3: 2 capsules [for 1200 mg of EPA/DHA] daily, metoprolol succinate ER 50 mg daily. Current treatment also incl udes diabetic teaching (Patient completed 3/3 education classes at the [facility] at [facility] in January 2012. He has had annual followup classes on 05/13 and 10/05/2012), glucose monitoring (uses a [employer] Ultra glucometer ), r egular exercise (Patient works out at cardiac rehabilitation for 1 hour x 3 days /week, including cardio and resistance training [see scanned regimen]. He also r ides a bicycle outdoors or a stationary bike for 30 - 45 minutes on most days of the week) and diabetic diet (typically eats 3 meals/day, with an occasional sna ck in the afternoon). Patient is counting carbs and reports eating 45 carbs per meal. By report, there is good compliance with treatment, good tolerance of shawn tment and good symptom control. Pertinent medical history: hypertension, coronary artery disease, peripheral va scular disease, carotid occlusive disease, cataract(s), renal artery stenosis, h yperlipidemia and neuropathy (Patient notes intermittent numbness and tingling i n his right foot), but no stroke, no glaucoma, no nephropathy and no retinopathy . Risk factors: no obesity, no inactivity, no prolonged corticosteroid use and no use of psychotropic medications. Family history: diabetes mellitus type II a nd obesity, but no diabetes mellitus type I and no premature coronary artery dis ease. Past evaluation has included hemoglobin A1c, metabolic panel, fasting lipid prof ile, urinalysis (Last urine microalbumin was undetectable on 10/16/2012) and oph thalmology examination (Last retinal evaluation was on 12/18/2012, with Dr. Paula Wen, from [facility] Past treatment has included diabetic teaching, glucose monitoring, aspirin, diet modification, exercise program and losartan, atorvastatin, CardioTabs [place]-3, and metoprolol succinate ER. Assessment 1. Type II diabetes mellitus with complication (250.90) 2. Diabetic peripheral neuropathy (250.60,357.2) 3. Dyslipidemia (272.4) 4. Hypertension (401.9) Plan 1. Microalbumin Urine Hank Status: Hold For - Hold for Specimen Collection Req uested for: 12Nov2013 Perform: SLRL/Cerner Order Comments: Please check a urine microalbumin/creatini ne ratio Due: [id number] Marked Important; Ordered;For: Hypertension, Type II yoselin betes mellitus with complication; Ordered By: Shade Pérez 2. Renal Panel Status: Hold For - Hold for Specimen Collection Requested for: [id number] Perform: SLRL/Cerner Due: [id number] Marked Important; Ordered;For: Hypertension , Type II diabetes mellitus with complication; Ordered By: Shade Pérez 1. Diabetes mellitus 2. - Complicated by peripheral neuropathy. - Controlled. - Laboratory A1c was 6.2% on 09/05/2013 - Glucose readings from home were reviewed today during appointment. - I recommend the followin) continue therapeutic lifestyle changes 2) continue monitoring glucose as an outpatient - Mechanism of action, risks, and benefits of medication therapy reviewed with lewis lebron. - Monitor fingerstick glucose: once daily - Report fingerstick glucose readings to my tobacco educator: as needed - Last retinal evaluation: 12/18/2012, with Dr. Blake Wen, from [facility] (I have reviewed his progress note from this visit. In summary, robson cordoba did not have any evidence of diabetic retinopathy in either eye. However, he did have bilateral cataracts, which Dr. Wen felt were ready for surgery. H e did recommend annual retinal follow up.) - Last urine Microalbumin/Creatinine ratio screenin10/16/2012 (urine microalb umin was undetectable) - Laboratory recommendations: I will update patient's renal function, electrolyt es, and Urine Microalbumin/Creatinine ratio today - Return to clinic: 6 months for routine follow up 2. Dyslipidemia. - Controlled. - Most recent lipids: performed 09/05/2013 (HDL is low, but his remaining lipids were at goal) - Most recent LFTs: performed 09/05/2013 (AST and ALT were normal) - Current treatment: medications reviewed above in the history of present illnes s - Laboratory recommendations: no laboratory evaluation necessary today - Medication recommendations: continue current therapy 3. Hypertension. - Controlled. - Treatment: Medications reviewed above in the history of present illness. - Laboratory recommendations: I will update patient's renal function, electrolyt es, and Urine Microalbumin/Creatinine ratio today - Medication recommendations: Continue current therapy. CC: Charmaine Black M.D. Olman Holloway M.D. Current Meds 1. Aspirin EC 81 MG Oral Tablet Delayed Release; TAKE 1 TABLET DAILY DIRECTED ; Therapy: 25Nov2009 to (Evaluate:74Mng5930); Last Rx:08May2013 Ordered 2. Atorvastatin Calcium 40 MG Oral Tablet; TAKE 1 TABLET DAILY AT BEDTIME; Therapy: 09Jan2010 to (Evaluate:29Oaf6522) Recorded 3. CardioTabs CardioTea; TAKE 2 TABLETS (for 662.5 mg) BY MOUTH DAILY; Therapy: 18Apr2012 to (Evaluate:65Ytg3828); Last Rx:08May2013 Ordered 4. CardioTabs CardioWhey; take 1 scoop (for 26 g) mixed in almond milk by mouth daily; Therapy: 08May2013 to Recorded 5. CardioTabs [place] 3; TAKE 2 TABLETS (for 1200 mg of EPA/DHA) BY MOUTH DAILY; Therapy: 53Chn6874 to (Evaluate:37Zja7703) Recorded 6. Losartan Potassium 50 MG Oral Tablet; TAKE 1 TABLET BY MOUTH DAILY; Therapy: 08May2013 to (Evaluate:90Adn0637) Recorded 7. Metoprolol Succinate ER 50 MG Oral Tablet Extended Release 24 Hour; TAKE 1 TA BLET DAILY; Therapy: 14Oct2009 to (Evaluate:03Mjy4028) Recorded 8. Miscellaneous OTC Drugs; Please fit patient for diabetic shoes; DX: 250.9 (DM 2 w/ complication, 357.2 (diabetic periph neuropathy), 443.9 (PVD); Therapy: 13Xek1952 to (Last Rx:[id number]) Ordered 9. Omeprazole 20 MG Oral Capsule Delayed Release; TAKE 1 CAPSULE DAILY; Therapy: 12Crn3771 to (Evaluate:26Xfa5993) Recorded 10. OneTouch Delica Lancets Fine Miscellaneous; TEST ONCE DAILY; DX: 250.9; Therapy: 11Ipv6668 to (Evaluate:90Onu7876) Requested for: 12Nov2013 Recorded 11. OneTouch Ultra Blue In Vitro Strip; TEST ONCE DAILY; DX: 250.9; Therapy: 05Hoz8211 to (Evaluate:44Lvl0630) Requested for: 09Nov2013; Last Rx:09Nov2013 Ordered 12. Sertraline HCl - 100 MG Oral Tablet; TAKE 1 TABLET DAILY; Therapy: 14Oct2009 to (Evaluate:67Btd6883) Recorded 13. Synvisc 8 MG/ML Intra-articular Injectable; USE DIRECTED; Therapy: 16Oct2012 to Recorded 14. TH Vitamin D3 1000 UNIT Oral Capsule; TAKE 2 CAPSULES BY MOUTH DAILY; Therapy: 14Oct2009 to (Evaluate:13Apr2013) Recorded 15. Tylenol Extra Strength 500 MG Oral Tablet; TAKE 1 TABLET EVERY 6 HOURS NEEDED; Therapy: 84Plq5288 to (Evaluate:15Dec2012) Recorded Allergies 1. Niaspan TBCR Adverse Reaction ; Thrombocytopenia; Recorded By: Shade Pérez; 11/02/2011 8: 28:17 AM Vitals Vital Signs [Data Includes: Last 1 Day] Recorded by : Edie Branch at 12Nov2013 10:56AM Height 5 ft 8 in Weight 189 lb BMI Calculated 28.74 BSA Calculated 2 Systolic 110 Diastolic 68 Heart Rate 86 Immunizations 1 Influenza [id number] Review of Systems A 10 point review of systems was reviewed with patient and was otherwise negat mallika, unless noted as positive above in the history of present illness. Active Problems 1. Anxiety (300.00) 2. Benign colonic polyp (211.3) 3. Benign prostatic hypertrophy (600.00) 4. Carotid artery stenosis (433.10) 5. Cholelithiasis (574.20) 6. Coronary artery disease (414.00) s/p 4 vv CABG 09/02/07 7. Depression (311) 8. Diabetic peripheral neuropathy (250.60,357.2) 9. Diverticulosis (562.10) 10. Dyslipidemia (272.4) 11. Erectile dysfunction of non-organic origin (302.72) 12. Esophageal reflux (530.81) 13. Generalized osteoarthritis of multiple sites (715.09) 14. Hypertension (401.9) 15. Nuclear senile cataract, bilateral (366.16) 16. Obstructive sleep apnea (327.23) 17. Osteoarthrosis (715.90) 18. Overweight (278.02) 19. Peripheral vascular disease (443.9) 20. Renal artery stenosis (440.1) s/p stent 21. Squamous cell carcinoma of skin (173.92) s/p resection 22. Type II diabetes mellitus with complication (250.90) 23. Vitamin d deficiency (268.9) Past Medical History 1. History of obesity (V13.89) Surgical History 1. History of Appendectomy 2. History of CABG 4 vv 3. History of Cholecystectomy Laparoscopic 4. History of Dental Surgery 2 infected molars extracted 5. History of Partial Colectomy 6. History of Transcath Intravascular Stent Placement Percutaneous Renal Family History 1. Family history of Coronary Artery Disease Brother at 73 y/o and Father at 63 y/o 2. Family history of Dementia 3. Family history of Stroke Syndrome (V17.1) 4. Family history of Type 2 Diabetes Mellitus Social History 1. Being A Social Drinker has 2-3 beers a week 2. Exercising Regularly 3. Marital History - Currently 4. Never smoker 5. Retired From Work 6. Uses Safety Equipment - Seatbelts Physical Exam General: Patient is a pleasant and cooperative gentleman, who is oth erwise in no apparent distress. Psych: Patient is alert and oriented x 3. Neuro: No focal cranial nerve deficits are noted. Monofilament sensation intact in bilateral feet. Head: Normocephalic atraumatic. Eyes: Anicteric sclera. No exophthalmus or lid lag. Throat: Clear oropharynx. Neck: No cervical lymphadenopathy. No thyromegaly. No thyroid nodules. Lungs: Clear to auscultation bilaterally. Heart: Regular rate and rhythm. Abdomen: Positive bowel sounds. Soft. Nontender to palpation. No lipohypertro phy. Extremities: No edema is noted. 2/4 bilateral dorsalis pedis and 1/4 bilateral posterior tibialis pulses. No cyanosis or delayed capillary refill. Musculoskeletal: 5/5 proximal and distal muscle tone in all extremities. He nolasco s have mild hallux valgus of his bilateral big toes. He also has thick toenails of bilateral big toes. Skin: No rashes, dry skin, or moist skin noted. No foot sores, calluses, or ulc ers noted. The right foot was normal. The right toes were abnormal and mild hallux valgus o f big toe and thick toenails. Capillary refills were normal in the right toes. P ulse of 1 in the posterior tibialis right foot. Pulse is 2 in the dorsalis pedis of the right foot. The left foot was normal. The left toes were abnormal and mi ld hallux valgus of big toe and thick toenails. Capillary refill: normal in the left toes. Pulse is 1 in the posterior tibialis in the left foot. Pulse is 2 in the dorsalis pedis of the left foot. Monofilament Testing: did not show decreased sensation of the foot Tactile sensation in the right foot (see image for location): number 1 was arabella l, number 2 was normal, number 3 was normal, number 4 was normal, number 5 was n ormal, number 6 was normal and number 10 was normal. Tactile sensation in the left foot (see image for location): number 1 was normal , number 2 was normal, number 3 was normal, number 4 was normal, number 5 was no rmal, number 6 was normal and number 10 was normal. Results/Data Diabetes Flowsheet [Data Includes: Last 1 Instance] Printed in Appendix #1 below. 04/10/2013 ([facility]): Glucose 122*, AST 21, ALT 33 06/16/2012 ([facility]): Fasting glucose 107*, AST 21, ALT 26 02/09/2012 ([facility]): AST 21, ALT 36 10/13/2011 ([facility]): Fasting glucose 116*, AST 25, ALT 19 Signatures Electronically signed by : Shade Pérez M.D.; Nov 12 2013 12:14PM SERVICE INSPECTOR (Author) Appendix #1 Diabetes Flowsheet [Data Includes: Last 1 Instance] Patient: CARL CHILDERS; : 1935; Goal [id number] [id number] [id number] [id number] [id number] [id number] Leg / Foot Monofilament Wire Test Decreased Sensation Negative Feet Appearance Left Negative Feet Appearance Right Negative Pulse Amplitude Posterior Tibialis Left 1 Pulse Amplitude Posterior Tibialis Right 1 Pulse Amplitude Dorsalis Pedis Left 2 Pulse Amplitude Dorsalis Pedis Right 2 Systolic 110 Diastolic 68 Height 5 ft 8 in Weight 189 lb BMI Calculated 28.74 BSA Calculated 2 Hemoglobin A1C Finger Stick 6% Hemoglobin A1C 6.2 Cholesterol, Total 135 Cholesterol Lipid Prof 133 Triglycerides 132 HDL Cholesterol 39 Hdl 39 VLDL Cholesterol Momo 70 Ldl Cholesterol 69 Total Cholesterol/Hdl Ratio 2.83 T. Chol/HDL Ratio 3.46 Non- HDL Cholesterol 95 mg/dL Microalbumin Mg/L < 0.50 mg/dL Creatinine, Urine Random Quant 57.2 mg/dL Microalbumin/Creat inine Ratio Not Calc ug/mg * Shade Pérez MD - 11/12/2013 11:00 AM CDT Clinical Summary Patient Details for CARL CHILDERS Preferred Name Male Sex [id number] [facility] Address [place] Language 1935 Born White Race Non- or Ethnicity Today's Appointment Shade Pérez M.D. Provider 12 Nov 2013 11:00 AM Appointment Current Health Issues Anxiety Benign colonic polyp Benign prostatic hypertrophy Carotid artery stenosis Cholelithiasis Coronary artery disease Depression Diabetic peripheral neuropathy Diverticulosis Dyslipidemia Erectile dysfunction of non-organic origin Esophageal reflux Generalized osteoarthritis of multiple sites Hypertension Nuclear senile cataract, bilateral Obstructive sleep apnea Osteoarthrosis Overweight Peripheral vascular disease Renal artery stenosis Squamous cell carcinoma of skin Type II diabetes mellitus with complication Vitamin d deficiency Past Surgical History History of Appendectomy of CABG 4 vv of Cholecystectomy Laparoscopic of Dental Surgery 2 infected molars extracted of Partial Colectomy of Transcath Intravascular Stent Placement Percutaneous Renal Smoking Status Never smoker Medications Medications: Medication Instructions Aspirin EC 81 MG Oral Tablet Delayed Release TAKE 1 TABLET DAILY DIRECTED. Atorvastatin Calcium 40 MG Oral Tablet TAKE 1 TABLET DAILY AT BEDTIME. CardioTabs CardioTea TAKE 2 TABLETS (for 662.5 mg) BY MOUTH DAILY CardioTabs CardioWhey take 1 scoop (for 26 g) mixed in almond milk by mouth daily CardioTabs [place] 3 TAKE 2 TABLETS (for 1200 mg of EPA/DHA) BY MOUTH DAILY Losartan Potassium 50 MG Oral Tablet TAKE 1 TABLET BY MOUTH DAILY Metoprolol Succinate ER 50 MG Oral Tablet Extended Release 24 Hour TAKE 1 TABLET DAILY. Miscellaneous OTC Drugs Please fit patient for diabetic shoes; DX: 250.9 (DM2 w/ complication, 357.2 (d iabetic periph neuropathy), 443.9 (PVD) Omeprazole 20 MG Oral Capsule Delayed Release TAKE 1 CAPSULE DAILY. OneTouch Delica Lancets Fine Miscellaneous TEST ONCE DAILY; DX: 250.9 OneTouch Ultra Blue In Vitro Strip TEST ONCE DAILY; DX: 250.9 Sertraline HCl - 100 MG Oral Tablet TAKE 1 TABLET DAILY. Synvisc 8 MG/ML Intra-articular Injectable USE DIRECTED. Vitamin D3 1000 UNIT Oral Capsule TAKE 2 CAPSULES BY MOUTH DAILY Tylenol Extra Strength 500 MG Oral Tablet TAKE 1 TABLET EVERY 6 HOURS NEEDED. Allergies and Adverse Reactions Niaspan TBCR; Reactions: Thrombocytopenia, ; Category: Adverse Reaction Immunization History Influenza 08 Nov 2012 Vital Signs Date/Time 11/12/2013 10:56:00 AM Blood Pressure 110 / 68 Heart Rate 86 bpm Height 5 ft 8 in Weight 189 lb BMI Calculated 28.74 kg/m2 BSA Calculated 2 m2 Results Results not documented. Treatment Plans Renal Panel; To Be Done: 12 Nov 2013 Microalbumin Urine Hank; To Be Done: 12 Nov 2013 Interventions 1. Diabetes mellitus 2. - Complicated by peripheral neuropathy. - Controlled. - Laboratory A1c was 6.2% on 09/05/2013 - Glucose readings from home were rev iewed today during appointment. - I recommend the followin) continue thera peutic lifestyle changes 2) continue monitoring glucose as an outpatient - [facility] hanism of action, risks, and benefits of medication therapy reviewed with mahamed alvarado. - Monitor fingerstick glucose: 3 days/week - Report fingerstick glucose marzena halina to my tobacco educator: as needed - Last retinal evaluation: 12/18/2012, with Dr. Blake Wen, from [facility] (I have reviewed his progr ess note from this visit. In summary, patient did not have any evidence of diabe tic retinopathy in either eye. However, he did have bilateral cataracts, which Randy Wen felt were ready for surgery. He did recommend annual retinal follow up. ) - Last urine Microalbumin/Creatinine ratio screenin10/16/2012 (urine micro albumin was undetectable) - Laboratory recommendations: I will update patient's renal function, electrolytes, and Urine Microalbumin/Creatinine ratio today - Return to clinic: 6 months for routine follow up 2. Dyslipidemia. - Control led. - Most recent lipids: performed 09/05/2013 (HDL is low, but his remaining lipids were at goal) - Most recent LFTs: performed 09/05/2013 (AST and ALT were normal) - Current treatment: medications reviewed above in the history of pres ent illness - Laboratory recommendations: no laboratory evaluation necessary to day - Medication recommendations: continue current therapy 3. Hypertension. - Controlled. - Treatment: Medications reviewed above in the history of prese nt illness. - Laboratory recommendations: I will update patient's renal functio n, electrolytes, and Urine Microalbumin/Creatinine ratio today - Medication re commendations: Continue current therapy. CC: Kelvin Das M.D. FollowupPlan: ; Patient Care Team Care Paint Line Production Supervisor Role Specialty Office Number Nixon Osorio, Shade Pérez, Endocrinology KIMANI Bundy, PAUL Irizarry, Document Details [facility]ology and Diabetes Site Name Phone 12 Nov 2013 11:34 AM Created Date/Time [address] [place], [place] [id number], [place] [address] Site Address documented in this encounter Plan of Treatment Not on filedocumented as of this encounter Visit Diagnoses Not on filedocumented in this encounter
--- OUTSIDE RECORDS SUMMARY | 2019-09-14 20:38 | XMS REPORT | Encounter Summary ---
Author Author [facility] Organization [facility] Address Unknown Phone Unavailable Care Team Providers Care Gore Seamer Name Role Phone Charmaine Black PCP Encounter Details Care Team Description Date Type Department Stephania Whitaker RN [facility]INGER [facility]AVER-[facility] [address] [place] [address] 12/19/2013 [facility] [...] Reading Time Taken Comments Vital Sign 130/70 12/19/2013 11:46 AM CDT Blood Pressure 64 12/19/2013 11:46 AM CDT Pulse - - Temperature - - Respiratory Rate - - Oxygen Saturation - - Inhaled Oxygen Concentration 83.9 kg (185 lb) 12/19/2013 11:46 AM CDT overweight Weight 170.2 cm (5' 7") 12/19/2013 11:46 AM CDT Height 28.98 12/19/2013 11:46 AM CDT Body Mass Index documented in this encounter Progress Notes * Stephania Whitaker RN FINGER WAVER-C - 12/19/2013 11:30 AM CDT [facility] [address] [place] [id number] December 19, 2013 CHARMAINE BLACK MD [address] [facility] [place] [address] RE: CARL CHILDERS : 1935 CHART #: [id number] Visit Provider: Gita Whitaker, RN, DNP, [facility]ING[facility]AVER-C Visit Location: [facility] I had the pleasure of seeing CARL CHILDERS in the [facility] for cardiovascular medical management. He is 78 years of age and presents with the following chief complaints: coronary artery disease, dyslipidemia, and hyperten jeanne. HPI: Mr. Childers is a 78-year-old male who has a history of open heart surgery in 2007 . He also has a history of dyslipidemia, hypertension and type 2 diabetes [place]. A PET study from 11/2012 showed a localized area of nontransmural injury a nd minimal associated ischemia in the lateral distribution of the obtuse margina l branch, mild depression of left ventricular systolic function and EF of 45%. Mr. Childers typically does a healthy job with his diet, although recently he repo rts having some dietary indiscretion. 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 Risk factors include: Male greater than 45 years old HDL less than 40 Diagnosed with Type 2 (Adult Onset) diabetes Hypertension Dyslipidemia Family hx (CAD < 60 Yo) Formerly smoked 2.00 pack(s) per day for 25.00 years(50.00 pack years) quit in 8. Known history of coronary artery disease. Laboratory Results from today's visit are as follows: Date Collected: 12/19/2013 Fasting: Fasting Total Cholesterol: 121 HDL: 40 LDL: 64 Triglycerides: 86 Ratio: 3.02 Glucose 125 HbA1c 6.2 ALT 27 AST 32 Final Medications: Atorvastatin Calcium 40 Mg take 1 tablet (40MG) by oral route every day Cozaar 50 Mg take 1 tablet (50MG) by oral route every day Toprol XL 50 Mg take 1 tablet (50MG) by oral route every day CardioTabs CardioWhey once daily Aspirin 81 Mg take 1 tablet (81MG) by oral route every day Prilosec OTC 20 Mg Take one tablet by mouth daily Whey Protein 25 Gram-140 Kcal/34 Gram 1 scoop of whey protein daily Cardio Tea two capsules by mouth daily with food Vitamin D 1000 Unit Take 2 tablets by oral route daily [place]-3 Fatty Acids Take two capsules by mouth twice per day Zoloft 50 Mg Take one tablet by mouth daily Synvisc prn Allergies: Allergy Comment Reaction Niacin Niaspan Extended-release Reduced Platelets Lisinopril Cough Past Medical History: Anxiety Cholelithiasis Obesity Osteoporosis GERD Perforated diverticulum Osteoarthritis Depression Renal artery stenosis Osteopenia Erectile Dysfunction Diverticulosis Colon polyps Diabetic peripheral neuropathy BPH Squamous cell CA 2002 Sleep Apnea on CPAP 2004 Past Surgical History: Colon resection 1998 Appendectomy 1998 Squamous cell Cancer Removal 2001 Removal of 2 infected molars 2010 Family History: Brother Diagnosed with HTN Mother Diagnosed with diabetes, dementia. Cause of was CVA at age 82. Brother Cause of was CRF at age 67. Father Diagnosed with Heart Disease. Cause of was ID at age 62. Brother Cause of was CABG at age 71. Sister Cause of was CA at age 86. Social History: Marital Status: Children: 3 Occupation: Retired Advance Directives: There are no advance directives. The patient has a living wi ll that was executed on 03/07/2007 Diet: Low fat/chol, Low salt Exercise: Regular. Cardio Rehab 1 hr x 3 day/wk, Circuit Ice Grinder 20-30 min 3x /wk, Stationary Bike 30 min daily, Elliptical 15-30 min 3 day/wk, Bicycle 2-3 day/ Tobacco: Former user of cigarettes 2.00 pack(s) per day for 25.00 year(s). Joe t in 1977 Alcohol: Currently drinks 2 drinks of hard liquor occasionally Caffeine: Caffeine use: 3 cups of coffee ROS: 12-point review of systems is negative Physical Exam: Vital Signs The patient is 5ft 7in tall, and weighs 185lbs. The BMI is 29.00. Blood pressure taken in the left arm is 130/70 mmHg in the sitting position. The pulse is 64. The rhythm is regular. Const The patient is an overweight male. Pulm The respiratory pattern is nonlabored. M/S The patient's gait is normal. Neuro/Psych The patient is alert and oriented to time, person and place. The patient's mood is normal. No aphasia is apparent by exam. Exercise: Circuit [employer]g for 20 minutes three times per week. Cardiac rehabilitation three times per week Current Diet: For breakfast, usually he has plain Ivorian yogurt with a half cup of blueberries or sometimes he will have whey protein in almond milk and blueberries or sometim es he will have apple with peanut butter. For lunch yesterday, he had a lettuce with some peanuts on it, cheese, tomato, onion and 3 ounces of chicken. Someti mes he will have a half of a peanut butter and cheese sandwich. Dinner last nig ht was a cup of chili with four crackers and decaffeinated coffee. When he sna ks it is on cheese sticks. He also had 5 ounces of wine last night. He has bee n having ice cream weekly. Summary and Recommendations: 1. Coronary artery disease without angina symptoms. He will continue with stric t risk factor management. 2. Dyslipidemia, optimally controlled. He will continue with the same cholester ol lower medications. 3. Hypertension, optimally controlled. Documented blood pressures from cardiac rehab range in the 110-120/60-70s. He will continue to monitor his blood pressu res. He will call if it is consistent greater than 130/80. 4. Body mass index is 29 with a waist circumference of 36 inches. As you know, we would like to see Mr. Moy waist circumference be 33.5 inches or less f or optimal benefit. He will plan on working on a 5 pound weight loss. I sugges beto that he follow up with our dietitian, Ms. Suzanna Peña, to assist him with weight loss efforts. Mr. Childers is down 5 pounds since 09/2013. It is gratify ing to see individuals making positive lifestyle modifications to optimize their health. He will continue to maintain his weight loss and work on an additional 5 pound weight loss. 5. His 25-hydroxyvitamin D blood test in 10/2012 was sufficient at 38. He will continue with the same vitamin D supplement. 6. Fasting blood sugar is 125 and hemoglobin A1C demonstrates good control of hi s diabetes mellitus. Next Follow- up Visit: In 4 Months We will apprise you of the above test results and further recommendations as the y are available. Thank you for allowing us to participate in the care of this nice patient. Nohemi tao do not hesitate to call should you have questions or concerns. Sincerely, Gita Whitaker RN, DNP, FINGER WAVER-C [facility]/ct Supervising physician available for consultation is: Richard Carbone M.D. cc: CARLFrancisco CHILDERS [address] [place] [address] Shade Pérez MD [address] [place] [address] FAX: F: 01/01/2014 documented in this encounter Plan of Treatment Not on filedocumented as of this encounter Visit Diagnoses Not on filedocumented in this encounter
--- OUTSIDE RECORDS SUMMARY | 2019-09-14 20:38 | XMS REPORT | Encounter Summary ---
Author Author [facility] Organization [facility] Address Unknown Phone Unavailable Care Team Providers Care Dowel Pin Worker Name Role Phone Charmaine Black PCP Encounter Details Care Team Description Date Type Department Stephania Whitaker RN SHANK PAPERER- [address] [place] [address] 03/08/2014 [facility] Visit Social History Date [...]
--- OUTSIDE RECORDS SUMMARY | 2019-09-14 20:38 | XMS REPORT | Encounter Summary ---
Author Author [facility] Organization [facility] Address Unknown Phone Unavailable Care Team Providers Care Patient Transporter Name Role Phone Fco Blackeen PCP Encounter Details Care Team Description Date Type Department Shade Pérez MD [address] [address] [phone] 05/17/2014 Hist-Appointmen [facility] [...] Signs Reading Time Taken Comments Vital Sign 112/68 05/17/2014 11:04 AM CDT Blood Pressure 63 05/17/2014 11:04 AM CDT Pulse - - Temperature - - Respiratory Rate - - Oxygen Saturation - - Inhaled Oxygen Concentration 84.4 kg (186 lb) 05/17/2014 11:04 AM CDT Weight 172.7 cm (5' 8") 05/17/2014 11:04 AM CDT Height 28.28 05/17/2014 11:04 AM CDT Body Mass Index documented in this encounter Progress Notes * Shade Pérez MD - 05/17/2014 11:00 AM CDT Chief Complaint Patient is an 79-year-old gentleman, who is being seen in routine follow up, re garding diabetes mellitus 2. History of Present Illness Diabetes-[facility]: Reason for Visit: The patient's visit is for a routine clinic follow-up of Type 2 diabetes mellitus. Symptoms: no polydipsia, no polyuria, no increased appetite, no weight loss, no fatigue and no episodes of hypoglycemia The patient presents with complaints of no blurred vision. There is no known rita nt that preceded symptom onset. Patient reports doing home measurements 1 time(s) per day. Home Measurement Read ings: (glucose log reviewed and scanned into the EMR) Associated symptoms: appetite not increased, no nausea, no vomiting, no anorexia , no abdominal pain, no abnormal healing and no confusion. Disease Management: the patient is current on all diabetes management items. Current treatment includes: aspirin (81 mg daily) and losartan 50 mg daily, aCar dioTabs [place] 3: 2 tablets (for 1200 mg of EPA/DHA) by mouth daily, metoprolol s uccinate ER 50 mg daily. Current treatment also includes diabetic teaching, gluc ose monitoring (uses a [employer] Ultra glucometer), regular exercise (cardiac lamberto ab for 1 hours x 3 days/week; rides bike outside, or a stationary bike, for 45 m inutes daily) and diabetic diet (typically eats 3 meals/day, plus an occasional snack). Patient is counting carbs and reports eating 45 carbs per meal. By repor t, there is good compliance with treatment, good tolerance of treatment and good symptom control. Pertinent medical history: hypertension, coronary artery disease, peripheral va scular disease, carotid occlusive disease, cataract(s), renal artery stenosis, h yperlipidemia and neuropathy (occasional tingling in his right foot), but no str brynn, no glaucoma, no nephropathy and no retinopathy. Risk factors: no obesity, no inactivity, no prolonged corticosteroid use and no use of psychotropic medica tions. Family history: diabetes mellitus type II and obesity, but no diabetes m ellitus type I and no premature coronary artery disease. Past evaluation has included hemoglobin A1c, metabolic panel, fasting lipid prof ile, urinalysis and ophthalmology examination. Past treatment has included diabetic teaching, glucose monitoring, aspirin, diet modification, exercise program and losartan, CardioTabs [place]-3, and metoprolol succinate ER; [discontinued meds: atorvastatin]. Assessment 1. Type II diabetes mellitus with complication (250.90) 2. Diabetic peripheral neuropathy (250.60,357.2) 3. Dyslipidemia (272.4) 4. Hypertension (401.9) Plan 1. Renal Panel; Status:Hold For - Hold for Specimen Collection; Requested for:1 [id number]; Perform:ERIN/[place]; Due:27May2014;Ordered; For:Hypertension, Type II diabetes mellitus with complication; Ordered By:Shade Pérez; 1. Diabetes mellitus 2. - Complicated by peripheral neuropathy - Controlled - Laboratory A1c was 6.6% on 05/02/2014, per the last cardiology progress note - Glucose readings from home were reviewed today during appointment - I recommend the following: #1) continue working on improved therapeutic lifestyle changes, including diet a nd exercise #2) continue monitoring glucose as an outpatient #3) I recommend making an appointment with a trouble clerk for a diabetic foot exam and to be fit for diabetic shoes/inserts - Mechanism of action, risks, and benefits of medication therapy reviewed with lewis lebrno. - Monitor fingerstick glucose: once daily - Report fingerstick glucose readings to my whiskey filterer: as needed for per sistent glucose elevations - Last cardiology evaluation: 05/09/2014, with Gita Whitaker, RN, DNP, CAUSTIC PURIFICATION OPERATOR-C, fr [facility] outpatient clinic - Last retinal evaluation: 01/25/2014, with Dr. Blake Wen, from [facility] (I have reviewed the clinical letter from this evaluation. In [facility], patient was seen for his routine diabetic eye evaluation. On examination, n o diabetic retinopathy was detected. He did have cataracts in both eyes, which appeared to be worsening. He instructed patient he could consider cataract surg cam anytime he is ready; however, patient told him he was not bothered enough by the cataracts to proceed with surgery just yet. He was instructed to return to clinic in 1 year for follow up.) - Last urine Microalbumin/Creatinine ratio screenin11/12/2013 (urine microalb umin was undetectable) - Laboratory recommendations: I will check patient's renal function - Return to clinic: 6 months for routine follow up 2. Dyslipidemia. - Controlled - Most recent lipids: performed 05/02/2014 - Most recent LFTs: performed 05/02/2014 (AST and ALT were normal) - Current treatment: medications reviewed above in the history of present illnes s; he stopped atorvastatin 1 week ago, for a 3 week trial off therapy, to see if joint aches improve any - Laboratory recommendations: no laboratory evaluation necessary today - Medication recommendations: continue current therapy, unless instructed lori frankel 3. Hypertension. - Controlled - Treatment: medications reviewed above in the history of present illness - Laboratory recommendations: I will update patient's renal function; his annual Urine Microalbumin/Creatinine ratio screening is up-to-date - Medication recommendations: continue current therapy, unless instructed lori frankel CC: Charmaine Black M.D. Olman Holloway M.D. Current Meds 1. Aspirin EC 81 MG Oral Tablet Delayed Release; TAKE 1 TABLET DAILY DIRECTE D; Therapy: 25Nov2009 to (Evaluate:12May2015) Recorded 2. CardioTabs CardioTea; TAKE 2 TABLETS (for 662.5 mg) BY MOUTH DAILY; Therapy: 18Apr2012 to (Evaluate:12May2015) Recorded 3. CardioTabs CardioWhey; take 1 scoop (for 26 g) mixed in almond milk by mouth daily; Therapy: 08May2013 to Recorded 4. CardioTabs [place] 3; TAKE 2 TABLETS (for 1200 mg of EPA/DHA) BY MOUTH DAILY; Therapy: 25Nov2009 to (Evaluate:03May2014) Recorded 5. Losartan Potassium 50 MG Oral Tablet; TAKE 1 TABLET BY MOUTH DAILY; Therapy: 08May2013 to (Evaluate:03May2014) Recorded 6. Metoprolol Succinate ER 50 MG Oral Tablet Extended Release 24 Hour; TAKE 1 T ABLET DAILY; Therapy: 14Oct2009 to (Evaluate:11Oct2013) Recorded 7. Miscellaneous OTC Drugs; Please fit patient for diabetic shoes; DX: 250.9 (D M2 w/ complication, 357.2 (diabetic periph neuropathy), 443.9 (PVD); Therapy: [id number] to (Last Rx:[id number]) Ordered 8. Omeprazole 20 MG Oral Capsule Delayed Release; TAKE 1 CAPSULE DAILY; Therapy: 14Oct2009 to (Evaluate:13Apr2013) Recorded 9. OneTouch Delica Lancets Fine Miscellaneous; TEST ONCE DAILY; DX: 250.9; Therapy: 30Kvt8432 to (Evaluate:19Dec2014) Requested for: 31Dec2013; Last Rx:31Dec2013 Ordered 10. OneTouch Ultra Blue In Vitro Strip; TEST ONCE DAILY; DX: 250.9; Therapy: 66Qwe8231 to (Evaluate:21Tyy2182) Requested for: 09Nov2013; Last Rx:[id number] Ordered 11. Sertraline HCl - 50 MG Oral Tablet; TAKE 1 TABLET DAILY; Therapy: 11Xsw0331 to (Evaluate:12May2015) Recorded 12. Synvisc 8 MG/ML INJ; USE DIRECTED; Therapy: 52Ljr8240 to Recorded 13. TH Vitamin D3 1000 UNIT Oral Capsule; TAKE 2 CAPSULES BY MOUTH DAILY; Therapy: 26Eeu1650 to (Evaluate:98Bhb2218) Recorded Allergies 1. Niaspan TBCR Adverse Reaction; Thrombocytopenia;; Recorded By: Shade Pérez; 11/02/2011 8: 28:17 AM Vitals Vital Signs [Data Includes: Last 1 Day] Recorded: 17May2014 11:04AM Height 5 ft 8 in Weight 186 lb BMI Calculated 28.28 BSA Calculated 1.98 Systolic 112 Diastolic 68 Heart Rate 63 Immunizations 1 Influenza [id number] Review of Systems A 10 point review of systems was reviewed with patient and was otherwise negati ve, unless noted as positive above in the [...] 1. Family history of Coronary Artery Disease : Father, Brother Brother at 73 y/o and Father at 63 y/o 2. Family history of Dementia : Mother, Sister 3. Family history of Stroke Syndrome (V17.1) : Mother 4. Family history of Type 2 Diabetes Mellitus : Mother, Maternal Grandmother Social History 1. Being A Social Drinker has 2-3 beers a week 2. Exercising Regularly 3. Marital History - Currently 4. Never smoker 5. Retired From Work 6. Uses Safety Equipment - Seatbelts Physical Exam General: Patient is a pleasant and cooperative gentleman, who is o therwise in no apparent distress. Psych: Patient is [...] valgus of his bilateral big toes. He has mild claw toes of b ilateral 4th toes. He also has thick toenails of bilateral big toes. Skin: No rashes, dry skin, or moist skin noted. No foot sores, calluses, or ulc ers noted. The right foot was normal. The right toes were abnormal and mild hallux valgus, claw toe 4th toe. Capillary refills were normal in the right toes. Pulse of 1 in the posterior tibialis right foot. Pulse is 2 in the dorsalis pedis of the right foot. The left foot was normal. The left toes were abnormal and mild hallux va lgus, claw toe 4th toe. Capillary refill: normal in the left toes. [...] 1 Instance] Printed in Appendix #1 below. 05/02/2014 ([facility]): AST 24, ALT 27 04/10/2013 ([facility]): Glucose 122*, AST 21, ALT 33 06/16/2012 ([facility]): Fasting glucose 107*, AST 21, ALT 26 02/09/2012 ([facility]): AST 21, ALT 36 10/13/2011 ([facility]): Fasting glucose 116*, AST 25, ALT 19 Signatures Electronically signed by : Shade Pérez M.D.; May 17 2014 11:37AM GRIPPER ATTACHER (Author) Appendix #1 Diabetes Flowsheet [Data Includes: Last 1 Instance] Patient: CARL CHILDERS; : 1935; Goal [id number] [id number] [id number] [id number] [id number] [id number] Leg / Foot Monofilament Wire Test Decreased Sensation Negative Feet Appearance Left Positive Feet Appearance Right Positive Pulse Amplitude Posterior Tibialis Left 1 Pulse Amplitude Posterior Tibialis Right 1 Pulse Amplitude Dorsalis Pedis Left 2 Pulse Amplitude Dorsalis Pedis Right 2 Systolic 112 Diastolic 68 Height 5 ft 8 in Weight 186 lb BMI Calculated 28.28 BSA Calculated 1.98 Hemoglobin A1C Finger Stick 6% Hemoglobin A1C 6.6% Cholesterol, Total 121 Cholesterol Lipid Prof 133 Triglycerides 100 HDL Cholesterol 39 Hdl 39 VLDL Cholesterol Momo 70 Ldl Cholesterol 70 Total Cholesterol/Hdl Ratio 3.4 T. Chol/HDL Ratio 302 Non- HDL Cholesterol 81 Microalbumin Mg/L <0.60 mg/dL Creatinine, Urine Random Quant 66.2 mg/dL Microalbumin/Creatinine Ratio Not Calc ug/mg Diabetes Eye Exam Routine No Diabetic Retinopathy * Shade Pérez MD - 05/17/2014 11:00 AM CDT Clinical Summary Patient Details for CARL CHILDERS Preferred Name Male Sex [id number], [place], [address] Address [place] Language 1935 Born White Race Non- or Ethnicity [email or web address] Today's Appointment Shade Pérez M.D. Provider 17 May 2014 11:00 AM Appointment Reason for Visit Issues Reviewed : Diabetic peripheral neuropathy Dyslipidemia Hypertension Type II diabetes mellitus with complication Current Health Issues Anxiety Benign colonic polyp [...] deficiency Past Surgical History History of Appendectomy History of CABG 4 vv History of Cholecystectomy Laparoscopic History of Dental Surgery 2 infected molars extracted History of Partial Colectomy History of Transcath Intravascular Stent Placement Percutaneous Renal Smoking Status Never smoker Medications Medications: Medication Instructions Aspirin EC 81 MG Oral Tablet Delayed Release TAKE 1 TABLET DAILY DIRECTED. CardioTabs CardioTea TAKE 2 TABLETS (for 662.5 mg) BY MOUTH DAILY CardioTabs CardioWhey take 1 scoop (for 26 g) mixed in almond milk by mouth thee y CardioTabs [place] 3 TAKE 2 TABLETS (for 1200 mg of EPA/DHA) BY MOUTH DAILY Losartan Potassium 50 MG Oral Tablet TAKE 1 TABLET BY MOUTH DAILY Metoprolol Succinate ER 50 MG Oral Tablet Extended Release 24 Hour TAKE 1 TABLET DAILY. Miscellaneous OTC Drugs Please fit patient for diabetic shoes; DX: 250.9 (DM2 w/ complication, 357.2 (diabetic periph neuropathy), 443.9 (PVD) Omeprazole 20 MG Oral Capsule Delayed Release TAKE 1 CAPSULE DAILY. OneTouch Delica Lancets Fine Miscellaneous TEST ONCE DAILY; DX: 250.9 OneTouch Ultra Blue In Vitro Strip TEST ONCE DAILY; DX: 250.9 Sertraline HCl - 50 MG Oral Tablet TAKE 1 TABLET DAILY. Synvisc 8 MG/ML INJ USE DIRECTED. Vitamin D3 1000 UNIT Oral Capsule TAKE 2 CAPSULES BY MOUTH DAILY Allergies and Adverse Reactions Niaspan TBCR; Reactions: Thrombocytopenia, ; Category: Adverse Reaction Immunization History Influenza 08 Nov 2012 Vital Signs Date/Time 05/17/2014 11:04:00 AM Blood Pressure 112 / 68 Heart Rate 63 bpm Height 5 ft 8 in Weight 186 lb BMI Calculated 28.28 kg/m2 BSA Calculated 1.98 m2 Results Finger Stick, Collected/Examined: 17-May-2014 11:02AM 15 hours ago Finger Stick: Value = 106; Abnormal A1C, Collected/Examined: 02-May-2014 12:00AM lab; dictated in [facility] progress note A1C: Value = 6.6%; Abnormal High Profile, Collected/Examined: 02-May-2014 12:00AM lab; dictated in [facility] progress note Lipid Prof: Value = 133; Normal : Value = 100; Normal : Value = 39; Abnormal Low Cholesterol: Value = 70; Normal Cholesterol/Hdl Ratio: Value = 3.4; Normal Treatment Plans Renal Panel; To Be Done: 17 May 2014 Interventions 1. Diabetes mellitus 2. - Complicated by peripheral neuropathy - Controlled - Laboratory A1c was 6.6% on 05/02/2014, per the last cardiology progress note - Glucose readings from home were reviewed today during appointment - I recomme nd the following: #1) continue working on improved therapeutic lifestyle change s, including diet and exercise #2) continue monitoring glucose as an outpatient #3) I recommend making an appointment with a trouble clerk for a diabetic foot ex am and to be fit for diabetic shoes/inserts - Mechanism of action, risks, and benefits of medication therapy reviewed with patient. - Monitor fingerstick glu cose: once daily - Report fingerstick glucose readings to my whiskey filterer: as needed for persistent glucose elevations - Last cardiology evaluation: 07/2014, with Gita Whitaker RN, DNP, CAUSTIC PURIFICATION OPERATOR-C, from [facility] outpatient clinic - Last retinal evaluation: 01/25/2014, with Dr. Paula Wen, from [facility] .. (I have reviewed the clinical letter fro m this evaluation. In summary, patient was seen for his routine diabetic eye bess luation. On examination, no diabetic retinopathy was detected. He did have catar acts in both eyes, which appeared to be worsening. He instructed patient he coul d consider cataract surgery anytime he is ready; however, patient told him he wa s not bothered enough by the cataracts to proceed with surgery just yet. He was instructed to return to clinic in 1 year for follow up.) - Last urine Microalbu min/Creatinine ratio screenin11/12/2013 (urine microalbumin was undetectable) - Laboratory recommendations: I will check patient's renal function - Return to clinic: 6 months for routine follow up 2. Dyslipidemia. - Controlled - Most recent lipids: performed 05/02/2014 - Most recent LFTs: performed 05/02/19 15 (AST and ALT were normal) - Current treatment: medications reviewed above in the history of present illness; he stopped atorvastatin 1 week ago, for a 3 week trial off therapy, to see if joint aches improve any - Laboratory recommendat ions: no laboratory evaluation necessary today - Medication recommendations: co ntinue current therapy, unless instructed otherwise 3. Hypertension. - Cont rolled - Treatment: medications reviewed above in the history of present illnes s - Laboratory recommendations: I will update patient's renal function; his annmarie ual Urine Microalbumin/Creatinine ratio screening is up-to-date - Medication re commendations: continue current therapy, unless instructed otherwise CC: Hailey Black M.D. Olman Holloway M.D. Patient Care Team Care Patient Transporter Role Specialty Office Number Nixon Osorio, Shade Pérez, Endocrinology PAUL Irizarry, Document Details [facility] Site Name Phone 17 May 2014 11:38 AM Created Date/Time [address], [facility] [address],[place], [place],[address] Site Address documented in this encounter Plan of Treatment Not on filedocumented as of this encounter Procedures Comments Procedure Name Priority Date/Time Associated Diag nosis GLUCOSE POC Routine 05/17/2014 11:02 AM CDT LIPID PANEL Routine 05/02/2014 12:00 AM GRIPPER ATTACHER HEMOGLOBIN A1C Routine 05/02/2014 12:00 AM GRIPPER ATTACHER documented in this encounter Results * GLUCOSE POC (05/17/2014 11:02 AM CDT) Glucose, 106 (A) 0 OFFICE ENTERED Fingerstick Specimen Performing Organization Address [facility] Ph one Number OFFICE ENTERED * Hemoglobin A1C (05/02/2014 12:00 AM GRIPPER ATTACHER) Hemoglobin A1C 6.6% (H) 0 OFFICE ENTERED Specimen Performing Organization Address [facility] Ph one Number OFFICE ENTERED * Lipid Panel (05/02/2014 12:00 AM GRIPPER ATTACHER) Cholesterol 133 0 OFFICE ENTERED Triglycerides 100 0 OFFICE ENTERED HDL Cholesterol 39 (L) 0 OFFICE ENTERED LDL Cholesterol 70 0 OFFICE ENTERED Cholesterol/HDL 3.4 0 OFFICE ENTERED Ratio Specimen Performing Organization Address [facility] Ph one Number OFFICE ENTERED documented in this encounter Visit Diagnoses Not on filedocumented in this encounter
--- OUTSIDE RECORDS SUMMARY | 2019-09-14 20:38 | XMS REPORT | Encounter Summary ---
Author Author [facility] Organization [facility] Address Unknown Phone Unavailable Care Team Providers Care Recorder Helper Seismograph Name Role Phone Benjie Montano PCP Encounter Details Care Team Description Date Type Department Shade Pérez MD [address] [facility] [address] [place] [address] [id number] 11/18/2013 Allscripts Note [facility] [place] [address] [facility] [address] [place] [id number] Social History Date Tobacco Use Types Packs/Day Years Used Never Assessed Sex Assigned at Date Recorded Not on file Industry Job Start Date Occupation Not on file Not on file Not on file Travel End Travel History Travel Start No recent travel history available. documented as of this encounter Miscellaneous Notes * Miscellaneous - Shade Pérez MD - 11/18/2013 8:48 PM CDT Verified Results Renal Panel [id number] 11:48AM Shade Pérez Test Name Result Flag Reference Potassium 4.2 MEQ/L 3.5-5.3 Chloride 102 MEQ/L 96-112 Carbon Dioxide 28 MEQ/L 20-32 Glucose 108 mg/dL H 70-100 Anion Gap 12 5-17 Calcium 10.1 mg/dL 8.4-10.5 Creatinine 1.1 mg/dL 0.6-1.3 Blood Urea Nitrogen 26 mg/dL 7-26 Phosphorus 3.8 mg/dL 2.5-4.5 Albumin 4.4 g/dL 3.5-5.0 Gfrm Aa 78 Chronic Kidney Disease less than 60 mL/min/1.73 sq.m Kidney failure less than 15 mL/min/1.73 sq.m Gfrm Non Aa 65 Chronic Kidney Disease less than 60 mL/min/1.73 sq.m Kidney failure less than 15 mL/min/1.73 sq.m Sodium 141 MEQ/L 133-147 Microalbumin Urine Hank [id number] 11:48AM Shade Pérez Test Name Result Flag Reference Microalbumin Mg/L <0.60 mg/dL Creatinine, Urine Random Quant 66.2 mg/dL Microalbumin/Creatinine Ratio Not Calc ug/mg 0.00-30.00 Microalbumin is too low to be measured. Calculation cannot be performed Discussion/Summary Carl, Your renal panel is normal and urine microalbumin is undetectable, which is what we want. Your next appointment with Dr. Pérez is 05/10/14 at 11:00 a.m. If you have any questions or concerns, please feel free to contact me at [phone]. Thank you, Niharika Stone RN * Miscellaneous - Shade Pérez MD - 11/18/2013 8:48 PM CDT Verified Results Renal Panel [id number] 11:48AM Shade Pérez [Nov 18, 2013 8:48PM Shade Pérez] Renal panel is normal. Urine microalbumin is undetectable. Continue current ther apy/most recent treatment recommendations. Test Name Result Flag Reference Potassium 4.2 MEQ/L 3.5-5.3 Chloride 102 MEQ/L 96-112 Carbon Dioxide 28 MEQ/L 20-32 Glucose 108 mg/dL H 70-100 Anion Gap 12 5-17 Calcium 10.1 mg/dL 8.4-10.5 Creatinine 1.1 mg/dL 0.6-1.3 Blood Urea Nitrogen 26 mg/dL 7-26 Phosphorus 3.8 mg/dL 2.5-4.5 Albumin 4.4 g/dL 3.5-5.0 Gfrm Aa 78 Chronic Kidney Disease less than 60 mL/min/1.73 sq.m Kidney failure less than 15 mL/min/1.73 sq.m Gfrm Non Aa 65 Chronic Kidney Disease less than 60 mL/min/1.73 sq.m Kidney failure less than 15 mL/min/1.73 sq.m Sodium 141 MEQ/L 133-147 Microalbumin Urine Hank [id number] 11:48AM Shade Pérez [Nov 18, 2013 8:48PM Shade Pérez] Renal panel is normal. Urine microalbumin is undetectable. Continue current ther apy/most recent treatment recommendations. Test Name Result Flag Reference Microalbumin Mg/L <0.60 mg/dL Creatinine, Urine Random Quant 66.2 mg/dL Microalbumin/Creatinine Ratio Not Calc ug/mg 0.00-30.00 Microalbumin is too low to be measured. Calculation cannot be performed Discussion/Summary Carl, Your renal panel is normal and urine microalbumin is undetectable, which is what we want. Your next appointment with Dr. Pérez is 05/10/14 at 11:00 a.m. If you have any questions or concerns, please feel free to contact me at [phone]. Thank you, Niharika Stone, KIMANI documented in this encounter Plan of Treatment Not on filedocumented as of this encounter Visit Diagnoses Not on filedocumented in this encounter
--- OUTSIDE RECORDS SUMMARY | 2019-09-14 20:39 | XMS REPORT | Encounter Summary ---
Author Author [facility] Organization [facility] Address Unknown Phone Unavailable Care Team Providers Care Contract Specialist Name Role Phone Charmaine Black PCP Encounter Details Care Team Description Date Type Department ProviderLuc MD [address] [place] [address] 09/05/2013 Hist-Other [facility] [address] [place], [place] [id number] Social History Date Tobacco Use Types Packs/Day [...] Date/Time Associated Diag nosis LIPID PANEL Routine 09/05/2013 12:00 AM CDT HEMOGLOBIN A1C Routine 09/05/2013 12:00 AM CDT documented in this encounter Results * Lipid Panel (09/05/2013 12:00 AM CDT) Alk Phos Liver 135 0 OFFICE ENTERED Triglycerides 132 (O) 0 OFFICE ENTERED HDL Cholesterol 39 (A) 0 OFFICE ENTERED VLDL 70 0 OFFICE ENTERED Cholesterol Momo Cholesterol/HDL 3.46 0 OFFICE ENTERED Ratio Specimen Performing Organization Address [facility] Ph one Number OFFICE ENTERED * Hemoglobin A1C (09/05/2013 12:00 AM CDT) Hemoglobin A1C 6.2 (A) 0 OFFICE ENTERED Specimen Performing Organization Address [facility] Ph one Number OFFICE ENTERED documented in this encounter Visit Diagnoses Not on filedocumented in this encounter
--- OUTSIDE RECORDS SUMMARY | 2019-09-14 20:39 | XMS REPORT | Encounter Summary ---
Author Author [facility] Organization [facility] Address Unknown Phone Unavailable Care Team Providers Care Dust Handler Name Role Phone Ananth Black PCP Encounter Details Care Team Description Date Type Department Iza Montoya RN ANP no forwarding address 09/05/2013 [facility] Visit Social History [...] Signs Reading Time Taken Comments Vital Sign 120/62 09/05/2013 11:07 AM CDT Blood Pressure 60 09/05/2013 11:07 AM CDT Pulse - - Temperature - - Respiratory Rate - - Oxygen Saturation - - Inhaled Oxygen Concentration 85.8 kg (189 lb 3.2 oz) 09/05/2013 11:07 AM CDT overweight Weight 170.2 cm (5' 7") 09/05/2013 11:07 AM CDT Height 29.63 09/05/2013 11:07 AM CDT Body Mass Index documented in this encounter Progress Notes * Iza Montoya RN ANP - 09/05/2013 11:00 AM CDT [place] Office [address] [place] [address] September 05, 2013 ANANTH BLACK MD [address] [facility] [place] [address] RE: CARL CHILDERS : 1935 CHART #: [id number] Visit Provider: Iza Montoya RN, ANP- Visit Location: [facility] I had the pleasure of seeing CARL CHILDERS in the [facility] for cardiovascular medical management. He is 78 years of age and presents with the following chief complaints: coronary artery disease, dyslipidemia. HPI: Mr. Childers is a 78-year-old who has a history of having bypass surgery in 2007. He also has a history of dyslipidemia, hypertension, and type 2 diabetes. A stre ss test in November of 2012 showed a localized area of nontransmural injury and minimal associated ischemia in the lateral distribution of the obtuse marginal branch, mild depression of the LV systolic function, and ejection fraction of 45 %. Mr. Childers does an excellent job with heart-healthy nutrition and exercise. Meng tao follows a low-wheat, low-sugar, low-processed food diet. His weight is up 1 po und. He is still participating in cardiac rehabilitation as well as utilizing a stationary bike. His cholesterol profile is optimally controlled. His waist circ umference is 36 inches. He is without anginal symptoms. His blood pressure is op timally controlled. Risk factors include: Male greater than 45 years old HDL less than 40 Diagnosed with Type 2 (Adult Onset) diabetes Hypertension Dyslipidemia Family hx (CAD < 60 Yo) Formerly smoked 2.00 pack(s) per day for 25.00 years (50.00 pack years) quit in 1977. Coronary artery disease Laboratory Results from today's visit are as follows: Date Collected: 09/05/2013 Fasting: Fasting Total Cholesterol: 135 HDL: 39 LDL: 70 Triglycerides: 132 Ratio: 3.46 Glucose 132 HbA1c 6.2 ALT 29 AST 29 Final Medications: Cozaar 50 Mg take 1 tablet (50MG) by oral route every day Atorvastatin Calcium 40 Mg take 1 tablet (40MG) by oral route every day Toprol XL 50 Mg take 1 tablet (50MG) by oral route every day CardioTabs CardioWhey once daily Aspirin 81 Mg take 1 tablet (81MG) by oral route every day Prilosec OTC 20 Mg Take one tablet by mouth daily Whey Protein 25 Gram-140 Kcal/34 Gram 1 scoop of whey protein daily CardioTea two capsules by mouth daily with food Vitamin D 1,000 Unit Take 2 tablets by oral route daily [place]-3 Fatty Acids Take two capsules by mouth [...] Family History: Brother Diagnosed with HTN. Mother Diagnosed with Diabetes, Dementia. Cause of was CVA at age 82. Brother Cause of was CRF at age 67. Father Diagnosed with Heart Disease. Cause of was [place] at age 62. Brother Cause of was CABG at age 71. Sister Cause of was CA at age 86. Social History: Marital Status: Children: 3 Occupation: Retired Advance Directives: There are no advance directives. The patient has a living wi ll that was executed on 03/07/2007 Diet: Low fat/chol, Low salt Exercise: Regular. Cardio Rehab 1 hr x 3 day/wk, Circuit [place] 20-30 min 3x /wk, Stationary Bike 30 min daily, Elliptical 15-30 min 3 day/wk, Bicycle 2-3 days Tobacco: Former user of cigarettes 2.00 pack(s) per day for 25.00 year(s). Quit in 1977 Alcohol: Currently drinks 2 drinks of hard liquor occasionally Caffeine: Caffeine use: 3 cups of coffee ROS: 12-point review of systems is negative with the following exceptions: Pulmonary: Snore, Sleep apnea Cardiovascular: Lightheadedness Musculoskeletal/Dermatology: Arthralgias Physical Exam: Vital Signs The patient is 5ft 7in tall, and weighs 189.20lbs. The BMI is 29.60 . Blood pressure taken in the left arm is 120/62 mmHg in the sitting position. The pulse is 60. The rhythm is regular. Const The patient is an overweight male. Pulm The respiratory pattern is nonlabored. Skin The skin is warm and dry. M/S The patient's gait is normal. Neuro/Psych The patient is alert and oriented to time, person and place. The pa tient's mood is normal. No aphasia is apparent by exam. Exercise: Cardio Rehab for 60 minutes three times per week. Circuit [place] for 25 minutes three times per week. Cycles for 40 minutes daily. Summary and Recommendations: 1. Coronary artery disease. We will continue with risk factor reduction. 2. Dyslipidemia is optimally controlled. We will continue with his current regim en. 3. Exercise regimen is excellent. 4. Hypertension is optimally controlled. 5. A body mass index of 29 and a waist circumference of 36 [address] hi m mildly overweight. We discussed monitoring portions on snacks even though they are heart healthy. Nuts and all-natural nut butters are higher in calories and I just encouraged him to be mindful of portion sizes. He will continue with his excellent nutrition intake of protein as well as colorful vegetables and fruits. 6. A 25-hydroxyvitamin D previously was optimal at 38. 7. A fasting glucose of 132 and hemoglobin A1c of 6.2. He will continue with exe rcise and limiting simple sugars and processed carbohydrates. Next Follow- up Visit: In 4 Months Thank you for allowing us to participate in the care of this nice patient. Pleas e do not hesitate to call should you have questions or concerns. Sincerely, Iza Montoya RN, ANP-BC Supervising physician available for consultation is: Richard AGUILA/stefano cc: CARL CHILDERS [address] [place] [address] [place] [address] Shade Pérez MD [address] [place] [phone] FAX: F: 09/14/2013 documented in this encounter Plan of Treatment Not on filedocumented as of this encounter Visit Diagnoses Not on filedocumented in this encounter
--- OUTSIDE RECORDS SUMMARY | 2019-09-14 20:39 | XMS REPORT | Encounter Summary ---
Author Author [facility] Organization [facility] Address Unknown Phone Unavailable Care Team Providers Care Business Analysis Professional Name Role Phone Benjie Montano PCP Encounter Details Care Team Description Date Type Department Shade Pérez MD [address] [address] [phone] 05/08/2013 [facility] Social History Date [...]
--- OUTSIDE RECORDS SUMMARY | 2019-09-14 20:39 | XMS REPORT | Encounter Summary ---
Author Author [facility] Organization [facility] Address Unknown Phone Unavailable Care Team Providers Care Coding Manager Name Role Phone Charmaine Black PCP Encounter Details Care Team Description Date Type Department Shade Pérez MD [address] [id number] 11/12/2013 [facility] Encounter [address] [place] [address] Social History Date Tobacco Use Types Packs/Day [...] 0 (81MG) by oral route every day 11/09/2011 omeprazole (PRILOSEC OTC) Take one 0 [...] one 0 0 tablet by mouth daily 08/30/2013 10/09/2014 atorvastatin (LIPITOR) 40 take 1 [...] TABLET 30 0 tablet BY MOUTH DAILY 11/12/2013 10/09/2014 losartan (COZAAR) 50 MG take [...] Priority Date/Time Associated Diag nosis LAB SUMMARY 12/12/2013 2:20 PM CDT MICROALBUMIN RANDOM Routine 11/12/2013 11:48 AM CDT RENAL PANEL Routine 11/12/2013 11:48 AM CDT documented in this encounter Results * LAB SUMMARY (12/12/2013 2:20 PM CDT) Narrative Performed At This result has an attachment that is n ot available. Ordered by an unspecified provider. * Microalbumin Random (11/12/2013 11:48 AM CDT) Creatinine 66.2 mg/dL [facility] Urine Random [facility] Microalbumin <0.60 mg/dL [facility] mg/dl [facility] Microalbumin/Cr Not CalcComment: Microalbumin 0.00 - 30.00 ug /mg [facility] eatinine Ratio is too low to be measured. REGIONAL Calculation cannot be LABORATORIES performed Specimen Urine Performing Organization Address [facility] one Number [facility] [address] [place], [place] [id number] LABORATORIES * Renal Panel (11/12/2013 11:48 AM CDT) Sodium 141 133 - 147 MEQ/L [facility] Potassium 4.2 3.5 - 5.3 MEQ/L [facility] Chloride 102 96 - 112 MEQ/L [facility] Carbon Dioxide 28 20 - 32 MEQ/L [facility] Anion Gap 12 5 - 17 [facility] Calcium 10.1 8.4 - 10.5 mg/dL [facility] Glucose 108 (H) 70 - 100 mg/dL [facility] Albumin 4.4 3.5 - 5.0 g/dL [facility] Blood Urea 26 7 - 26 mg/dL [facility] Nitrogen [facility] Creatinine 1.1 0.6 - 1.3 mg/dL [facility] eGFR Male AA 78Comment: Chronic Kidney [place] Disease less than 60 REGIONAL mL/min/1.73 sq.m Kidney LAB[facility]IES failure less than 15 mL/min/1.73 sq.m eGFR Male 65Comment: Chronic Kidney [facility] [place] Non-AA Disease less than 60 REGIONAL mL/min/1.73 sq.m Kidney LAB[facility] failure less than 15 mL/min/1.73 sq.m Phosphorus 3.8 2.5 - 4.5 mg/dL [facility] Specimen Blood Performing Organization Address [facility] one Number [facility] [address] [place] [id number] LABORATORIES documented in this encounter Visit Diagnoses Not on filedocumented in this encounter
--- OUTSIDE RECORDS SUMMARY | 2019-09-14 20:39 | XMS REPORT | Encounter Summary ---
Author Author [facility] Organization [facility] Address Unknown Phone Unavailable Care Team Providers Care Nursing Home Aide Name Role Phone Ananth Black PCP Encounter Details Care Team Description Date Type Department Iza Montoya RN ANP no forwarding address 12/11/2012 [facility] Visit Social History [...] Signs Reading Time Taken Comments Vital Sign 128/72 12/11/2012 2:39 PM CDT Blood Pressure 72 12/11/2012 2:39 PM CDT Pulse - - Temperature - - Respiratory Rate - - Oxygen Saturation - - Inhaled Oxygen Concentration 84.5 kg (186 lb 3.2 oz) 12/11/2012 2:39 PM CDT overweight Weight 170.2 cm (5' 7") 12/11/2012 2:39 PM CDT Height 29.16 12/11/2012 2:39 PM CDT Body Mass Index documented in this encounter Progress Notes * Iza Montoya RN ANP - 12/11/2012 2:30 PM CDT [place] Office [address] [place] [address] December 11, 2012 ANANTH BLACK MD [address] [facility] [place] [place] [address] RE: CARL CHILDERS : 1935 CHART #: [id number] Visit Provider: Iza Montoya RN, ANP- Visit Location: [facility] I had the pleasure of seeing CARL CHILDERS in [facility] for cardi ovascular risk reduction. He is 77 years of age and presents with the following chief complaints: dyslipidemia, coronary artery disease. HPI: Mr. Childers is following up in the [facility] today for risk factor r eduction. He has a history of coronary artery disease, having undergone coronar y artery bypass surgery in 2007. He is currently without anginal symptoms. A s tress test in November showed a localized area of nontransmural injury and mini mal associated ischemia laterally in the distribution of an obtuse marginal bran ch, and mild depression of left ventricular systolic function with an ejection f raction of 45%. This is the first perfusion imaging study that has been done si oke he had his bypass surgery. It was recommended by Dr. Holloway to start Cozaa r 50mg. The patient does an excellent job with exercise and nutrition. He foll ows a wheat-free diet. He last saw Dr. Holloway in November 2012 and is current ly without anginal symptoms. Risk factors include: Male greater than 45 years old HDL less than 40 Diagnosed with Type 2 (Adult Onset) diabetes hypertension Dyslipidemia Family hx (CAD < 60 Yo) Formerly smoked 2.00 pack(s) per day for 25.00 years(50.00 pack years) quit in 1 978. Coronary artery disease. Laboratory Results from today's visit are as follows: Date Collected: 11/02/2012 Fasting: Fasting Total Cholesterol: 129 HDL: 36 LDL: 73 Triglycerides: 102 Ratio: 3.58 Glucose 110 HbA1c 6.1 ALT 43 AST 21 Final Medications: Cozaar 50 Mg take 1 tablet (50MG) by oral route every day Aspirin 81 Mg take 1 tablet (81MG) by oral route every day CardioTabs CardioWhey once daily Toprol XL 50 Mg take 1 tablet (50MG) by oral route every day Atorvastatin Calcium 40 Mg take 1 tablet (40MG) by oral route every day Prilosec OTC 20 Mg Take one tablet by mouth daily Whey Protein 25 Gram-140 Kcal/34 Gram 1 scoop of whey protein daily CardioTea two capsules by mouth daily with food Tylenol Extra Strength 500 Mg take tablet (500MG) by oral route every 6 hours as needed Vitamin D 1,000 Unit Take 2 tablets by oral route daily [place]-3 Fatty Acids Take two capsules by mouth twice per day Zoloft 50 Mg Take one tablet by mouth daily Synvisc prn Allergies: Allergy Comment Reaction Niacin Niaspan Extended-release Reduced Platelets Past Medical History: Anxiety Cholelithiasis Obesity Osteoporosis GERD Perforated diverticulum Osteoarthritis Depression Renal artery stenosis Osteopenia Erectile Dysfunction Diverticulosis Colon polyps Diabetic peripheral neuropathy BPH Squamous cell CA 2001 Sleep Apnea on CPAP 2003 Past Surgical History: Colon resection 1998 Appendectomy 1998 Squamous cell Cancer Removal 2001 Removal of 2 infected molars 2010 Family History: Father Diagnosed with Heart Disease. Cause of was [place] at age 62. Mother Diagnosed with Diabetes, Dementia. Cause of was CVA at age 82. Brother Cause of was CRF at age 67. Brother Cause of was CABG at age 71. Brother Diagnosed with HTN. Sister Cause of was [place] at age 86. Social History: Marital Status: Children: 3 Occupation: Retired Advance Directives: There are no advance directives. The patient has a living wi ll that was executed on 03/07/2007 Diet: Low fat/chol, Low salt Exercise: Regular. Cardio Rehab 1 hr x 3 day/wk, Circuit [place] 20-30 min 3x/w k, Stationary Bike 30 min daily, Elliptical 15-30 min 3 day/wk, Bicycle 2-3 day Tobacco: Former user of cigarettes 2.00 pack(s) per day for 25.00 year(s). Quit in 1977 Alcohol: Currently drinks 2 drinks of hard liquor occasionally Caffeine: Caffeine use: 3 cups of coffee ROS: 12-point review of systems is negative with the following exceptions: Pulmonary: Snores, Sleep apnea Musculoskeletal/Dermatology: Arthralgias Physical Exam: Vital Signs The patient is 5ft 7in tall, and weighs 186.20lbs. The BMI is 29.20 . Blood pressure taken in the left arm is 128/72 mmHg in the sitting position. The pulse is 72. The rhythm is regular. Const The patient is an overweight male. Pulm The respiratory pattern is nonlabored. Skin The skin is warm and dry. M/S The patient's gait is normal. Neuro/Psych The patient is alert and oriented to time, person and place. The pa tient's mood is normal. No aphasia is apparent by exam. Exercise: Cycles for 40 minutes six times per week. Cardio rehab for 30 minutes three times per week. Summary and Recommendations: 1. Coronary artery disease. Will continue to target LDL less than 70. 2. Dyslipidemia. LDL and triglycerides are optimally controlled. HDL of 36 is low despite his excellent exercise that consists of cardio and weight training. He will continue with his current regimen. 3. Fasting glucose of 110 and HbA1C of 6.[address] him in the prediabetic ran ge. His numbers have improved since his last visit. He will continue eliminati ng simple sugars and processed carbohydrates and have balanced nutrition. He wi ll continue with his excellent exercise regimen. 4. Hypertension, optimally controlled. 5. BMI of 29 with a waist circumference of 36 inches places in the just mildly o verweight category. We discussed the benefits of a five pound weight loss. 6. His 25-Hydroxy vitamin D of 38 is optimal. 7. Exercise regimen is excellent. We will apprise you of the above test results and further recommendations as the y are available. Thank you for allowing us to participate in the care of this nice patient. Nohemi tao do not hesitate to call should you have questions or concerns. Sincerely, Iza Montoya RN, ANP-BC Supervising physician available for consultation is: Richard Carbone M.D. SV:flc cc: CARL CHILDERS [address] [place] [address] [place] [address] Shade Pérez MD [address] [place] [address] FAX: p.m. a.m. F: 12/15/2012 documented in this encounter Plan of Treatment Not on filedocumented as of this encounter Visit Diagnoses Not on filedocumented in this encounter
--- OUTSIDE RECORDS SUMMARY | 2019-09-14 20:39 | XMS REPORT | Encounter Summary ---
Author Author [facility] Organization [facility] Address Unknown Phone Unavailable Care Team Providers Care Health Educator Name Role Phone Ananth Black PCP Encounter Details Care Team Description Date Type Department Iza Montoya RN ANP no forwarding address 05/08/2013 [facility] Visit Social History [...] Signs Reading Time Taken Comments Vital Sign 128/68 05/08/2013 11:38 AM FACILITIES SPECIALIST Blood Pressure 60 05/08/2013 11:38 AM FACILITIES SPECIALIST Pulse - - Temperature - - Respiratory Rate - - Oxygen Saturation - - Inhaled Oxygen Concentration 84.9 kg (187 lb 3.2 oz) 05/08/2013 11:38 AM FACILITIES SPECIALIST overweight Weight 170.2 cm (5' 7") 05/08/2013 11:38 AM FACILITIES SPECIALIST Height 29.32 05/08/2013 11:38 AM FACILITIES SPECIALIST Body Mass Index documented in this encounter Progress Notes * Iza Montoya RN ANP - 05/08/2013 11:30 AM FACILITIES SPECIALIST [place] Office [address] [place] [address] May 08, 2013 ANANTH BLACK MD [address] [facility] [place] [address] RE: CARL CHILDERS : 1935 CHART #: [id number] Visit Provider: Iza Montoya RN, ANP- Visit Location: [facility] I had the pleasure of seeing CARL CHILDERS in the [facility] for cardiovascular medical management. He is 78 years of age and presents with the following chief complaints: dyslipidemia, coronary artery disease. HPI: Mr. Childers is a 78-year-old male who has a history of coronary artery disease chatman ving bypass surgery in 2007. He has a history of dyslipidemia, hypertension and type 2 diabetes. A stress test in November of 2012 showed a localized area of nontransmural injury and minimal associated ischemia in the lateral distribution of an obtuse marginal branch, mild depression of LV systolic function and eje ction fraction of 45%. Dr. Holloway started him on Cozaar at that time. Mr. Toño gan does an excellent job with exercise. He tries to follow a wheat free low rivas gar diet. However, he has told me this winter he has been indulging in some swe ets. His blood pressure is optimally controlled. His cholesterol profile has i mproved. However, his blood sugar has also increased slightly as his weight pallavi t down 1 pound. Risk factors include: Male greater than 45 years old HDL less than 40 Diagnosed with Type 2 (Adult Onset) diabetes Hypertension Dyslipidemia Family hx (CAD < 60 Yo) Formerly smoked 2.00 pack(s) per day for 25.00 years(50.00 pack years) quit in 978. Coronary artery disease. Laboratory Results from today's visit are as follows: Date Collected: 04/10/2013 Fasting: Fasting Total Cholesterol: 133 HDL: 39 LDL: 69 Triglycerides: 127 Ratio: 3.41 Glucose 122 HbA1c 6.3 ALT 33 AST 21 Final Medications: Atorvastatin Calcium 40 Mg take 1 tablet (40MG) by oral route every day Cozaar 50 Mg take 1 tablet (50MG) by oral route every day Aspirin 81 Mg take 1 tablet (81MG) by oral route every day CardioTabs CardioWhey once daily Toprol XL 50 Mg take 1 tablet (50MG) by oral route every day Prilosec OTC 20 Mg Take one tablet by mouth daily Whey Protein 25 Gram-140 Kcal/34 Gram 1 scoop of whey protein daily Cardio Tea two capsules by mouth daily with food Vitamin D 1000 Unit Take 2 tablets by oral route daily [place]-3 Fatty Acids Take two capsules by mouth [...] Diagnosed with HTN Mother Diagnosed with Diabetes, dementia. Cause of was CVA at age 82. Brother Cause of was CRF at age 67. Father Diagnosed with Heart Disease. Cause of was [place] at age 62. Brother Cause of was CABG at age 71. Sister Cause of was [place] at age 86. Social History: Marital Status: Children: 3 Occupation: Retired Advance Directives: There are no advance directives. The patient has a living wi ll that was executed on 03/07/2007 Diet: Low fat/chol, Low salt Exercise: Regular. Cardio Rehab 1 hr x 3 day/wk, Circuit [place] 20-30 min 3x /wk, Stationary Bike 30 min daily, Elliptical 15-30 min 3 day/wk, Bicycle 2-3 day Tobacco: Former user of cigarettes 2.00 pack(s) per day for 25.00 year(s). Joe t in 1977 Alcohol: Currently drinks 2 drinks of hard liquor occasionally Caffeine: Caffeine use: 3 cups of coffee ROS: 12-point review of systems is negative with the following exceptions: Pulmonary: Daytime drowsiness Cardiovascular: Lightheadedness Musculoskeletal/Dermatology: Arthralgias Physical Exam: Vital Signs The patient is 5ft 7in tall, and weighs 187.20lbs. The BMI is 29.30 . Blood pressure taken in the left arm is 128/68 mmHg in the sitting position. The pulse [...] No aphasia is apparent by exam. Exercise: Cardiac Regab for 60 minutes three times per week. Cycles for 40 minutes daily. Circuit [employer] for 25 minutes three times per week. Summary and Recommendations: 1. Coronary artery disease. We will continue with risk factor reduction targeti ng LDL less than 70. 2. Dyslipidemia. His LDL at 69 is optimal. Triglycerides of 127 have increased just slightly and his HDL of 39 has also increased. He will continue his curre nt regimen. I do recommend increasing vegetable intake. 3. Fasting glucose of 122 and hemoglobin A1C of 6.3 has increased slightly. I d id recommend not indulging in sweets more than once a week and limiting it to ju st a single serving. I gave him a recipe for a smoothie for when he is wanting to indulge, he can indulge in fruit and whey protein. 4. Hypertension is optimally controlled. 5. A body mass index of 29 and waist circumference of 37 inches places him sligh tly overweight. He will plan on working on weight loss through portion control, balanced nutrition and exercise. 6. A 25-hydroxyvitamin D previously was optimal at 38. 7. Exercise regimen is excellent. I did recommend that when he is using a stati onary bike that he have some resistance training for upper body. Next Follow- up Visit: In 4 Months We will apprise you of the above test results and further recommendations as the y are available. Thank you for allowing us to participate in the care of this nice patient. Nohemi tao do not hesitate to call should you have questions or concerns. Sincerely, Iza Montoya RN, TATIANA-BC SV/ct Supervising physician available for consultation is: Richard Carbone M.D. cc: CARL CHILDERS [address] [place] [address] Shade Pérez MD [address] [place] [phone] FAX: F: 05/12/2013 LITIES SPECIALIST documented in this encounter Plan of Treatment Not on filedocumented as of this encounter Visit Diagnoses Not on filedocumented in this encounter
--- OUTSIDE RECORDS SUMMARY | 2019-09-14 20:39 | XMS REPORT | Encounter Summary ---
Author Author [facility] Organization [facility] Address Unknown Phone Unavailable Care Team Providers Care Mail Clerk Name Role Phone Charmaine Black PCP Encounter Details Care Team Description Date Type Department Olman Holloway MD [address] [address] 11/08/2012 [facility] Visit Social History [...] Signs Reading Time Taken Comments Vital Sign 130/60 11/08/2012 1:24 PM CDT Blood Pressure 63 11/08/2012 1:24 PM CDT Pulse - - Temperature - - Respiratory Rate - - Oxygen Saturation - - Inhaled Oxygen Concentration 84.8 kg (187 lb) 11/08/2012 1:24 PM CDT overweight Weight 170.2 cm (5' 7") 11/08/2012 1:24 PM CDT Height 29.29 11/08/2012 1:24 PM CDT Body Mass Index documented in this encounter Progress Notes * Olman Holloway MD - 11/08/2012 1:30 PM CDT [place] [facility] [address] [place] [address] November 08, 2012 Charmaine Black M.D. [address] [place], [place] [address], [place] [address] RE: CARL CHILDERS : 1935 Chart #: [id number] Visit provider: Olman Holloway M.D. Visit location: [place] office Dear Dr. Black: I had the pleasure of seeing CARL CHILDERS in the office today. He is 77 years of age and presents with the following chief complaints: Chest pain, coronary edwina ry disease. HPI: He has been having some left-sided chest discomfort over the past two weeks. He describes this as a heavy sensation. It lasts for 30 seconds or so and then re solves spontaneously. It is not particularly related to exertion. For example, he has not had it when exercising at cardiac rehab. He mainly does weights at rehab. He does ride a bicycle outside as well. He denies shortness of breath, palpitations, syncope or presyncope. There have been no episodes to suggest TIA or stroke. 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 He did not have symp toms before his coronary artery bypass grafting. In fact, his coronary disease was discovered with a myocardial perfusion study. He also has dyslipidemia, type 2 diabetes, hypertension and obesity. [facility] and his lipids are at target. His metopro lol was increased at the time of his last visit because of mildly elevated blood pressure. His hemoglobin A1c level is 6.0. In the past he has also had right renal artery stenting. Problem List: Vitamin D Deficiency 08/24/2007 MPI Stress Test Mild to moderate ischemia in the distribution of the left anterior descending coronary artery and right coronary artery occurring at a low workload. Markedly positive ST segment change at low workload. Normal left ventricular systolic function. LVEF at rest is 71%. 1. Patient received sublin gual nitroglycerin early in the recovery period because of chest pain symptoms. 2. Test results were verbally communicated on date of dictation at 1525 hours. 08/31/2007 CABG Left internal mammary artery to left anterior descending, saphen ous vein to sequential to OM1 and OM2. Saphenous vein to posterior descending artery wit h a long vein patch anastomosis across the posterior descending artery lesion. Congenital heart disease-Patent foramen ovale DM Type 2 05/22/2004 Dyslipidemia 12/18/2009 Echo [...] regurgitation appears slightly less prominen t. 08/24/2007 MPI Rest EF: 71, Stress EF: 62 12/18/2009 Echo EF: 65 Hypertension Obesity 11/17/2006 aorto-iliac duplex 1. Moderate atherosclerosis within the abdominal a pratibha. 2. Normal abdominal aorta dimensions. 3. Increased flow velocities in th e distal aorta (2.9 m/s) consistent with a significant stenosis. 4. Increased f low velocities in the right common iliac consistent with a 50-75% stenosis. 5. Increased flow velocity (3.6 m/s) is incidentally noted in the right renal arter y. 12/30/2006 CTA Runoff 1. High-grade stenosis in the proximal segment of the righ t renal artery (approximately 90% diameter reduction). 2. Highly localized area of dissection or penetrating ulcer in the distal abdominal aorta at the level of the inferior mesenteric artery. 3. Mild, scattered atherosclerotic disease in the iliac and femoral vessels. 4. Three-vessel runoff to the distal left and right lower extremities. 5. Please see the radiology report for details of the nonvascular findings. 02/13/2007 Renal angiography Bilateral renal stent -Right Renal Artery from 99% to 0% post 5.5 x 18mm Herculink Plus Stent post-dilated with a 6.5 mm balloon se condary to marked post-stenotic dilatation. 09/23/2008 Renal Duplex Normal velocities in both renal arteries with no evidenc e for a significant stenosis, including the stent in the right renal artery. A cyst, measuring 1.4 cm x 1.5 cm, is present in the left kidney. No significant change from 08/24/2007. 10/14/2009 Carotid Duplex There is a >50% stenosis in the right ECA. Tobacco abuse, former Past Medical History: Anxiety Cholelithiasis Obesity Osteoporosis GERD Perforated diverticulum Osteoarthritis Depression Renal artery stenosis Osteopenia Erectile Dysfunction Diverticulosis Colon polyps Diabetic peripheral neuropathy BPH Squamous cell CA 2002 Sleep Apnea on CPAP 2003 Past Surgical History: Colon resection 1998 Appendectomy 1998 Squamous cell Cancer Removal 2001 Removal of 2 infected molars 2010 Final Medications: CardioTabs CardioWhey once daily Aspirin 81 Mg take 1 tablet (81MG) by oral route every day Toprol XL [...] Take 2 tablets by oral route daily Baden-3 Fatty Acids Take two capsules by mouth twice per day Zoloft 50 Mg Take one tablet by mouth daily Synvisc prn Allergies/Intolerances: Allergy Comment Reaction Niacin Niaspan Extended-release Reduced Platelets Family History: Brother Diagnosed with hypertension Mother Diagnosed with diabetes and dementia. Cause of was cerebrovascular accident at age 82. Brother Cause of was chronic renal failure at age 67. Father Diagnosed with heart disease. Cause of was [place] at age 62. Brother Cause of was coronary artery bypass grafting at age 71. Sister Cause of was cancer at age 86. Social History: Marital Status: Children: 3 Occupation: Retired Advance Directives: There are no advance directives. The patient has a living wi ll that was executed on 03/07/2007 Diet: Low fat/chol, Low salt Exercise: Regular. [facility] 1 hr x 3 day/wk, [employer] [place] 20-30 min 3x/ wk, Stationary Bike 30 min daily, Elliptical 15-30 min 3 day/wk, Bicycle 2-3 day/ Tobacco: Former user of cigarettes 2.00 pack(s) per day for 25.00 year(s). Quit in 1977 Alcohol: Currently drinks 2 drinks of hard liquor occasionally Caffeine: Caffeine use: 3 cups of coffee ROS: 12-point review of systems is negative with the following exceptions: Constitutional: Cough Pulmonary: Sleep apnea Cardiovascular: Chest Discomfort Musculoskeletal/Dermatology: Arthralgias Physical Exam: Vital Signs The patient is 5ft 7in tall, and weighs 187lbs. The BMI is 29.30. B lood pressure taken in the left arm is 130/60 mmHg in the sitting position. The pulse is 63. The rhythm is regular. Const The patient [...] No murmur, rub, or gallop pre sent. Abd The patient has no abdominal tenderness to palpation. The abdominal aorta i s not palpable. An abdominal aortic bruit is present. Vasc The right and left carotid upstrokes [...] change since last visit. Rhythm: Sinus Rate: 63 AV Conduction: Right bundle branch block Intervals: QTc: 428 ms Most Recent Lipids Available for Review: Date Collected: 11/02/2012 Fasting: Fasting unknown Total Cholesterol: 129 HDL: 36 LDL: 73 Triglycerides: 102 Ratio: 3.58 Glucose: 110 ALT 43 QI: Patient has a diagnosis of coronary artery disease and is prescribed beta blocke r therapy. CCS Class: I. Patient has a diagnosis of coronary artery disease and is prescribed antiplatele t therapy. CCS Class: I. Impression and Plan: 1. Coronary artery disease: He is more than five years post coronary artery byp ass grafting. He is having some chest discomforts. I am going to set him up for a stress myocardia l perfusion study. 2. Hypertension: His blood pressure is under good control. He is tolerating th e higher dosage of Toprol without a problem. 3. Dyslipidemia: His lipids are at target. 4. Type 2 diabetes: His diabetes is under reasonable control with a hemoglobin A1C of 6.0. His stress test will be done pharmacologically. He does have severe bilateral k nee arthritis and does not want to exercise on a treadmill. Testing ordered: Description Interval PET MPI By 12/22/2012 Follow up: Olman Holloway M.D. 1 Year Thank you for allowing me to participate in CARL CHILDERS's care. If I can be of any further assistance, please do not hesitate to contact me. Sincerely, Olman Holloway M.D. PB/steffany cc: Shade Pérez MD [address] [place] [id number] , 2:18 p.m. , 7:59 a.m. F: 11/14/2012 documented in this encounter Plan of Treatment Not on filedocumented as of this encounter Visit Diagnoses Not on filedocumented in this encounter
--- OUTSIDE RECORDS SUMMARY | 2019-09-14 20:39 | XMS REPORT | Encounter Summary ---
Author Author [facility] Organization [facility] Address Unknown Phone Unavailable Care Team Providers Care Training Director Name Role Phone Charmaine Black PCP Encounter Details Care Team Description Date Type Department Stephania Whitaker RN ADMINISTRATION DEAN- [address] [place] [address] 02/20/2013 [facility] Visit Social History Date [...]
--- OUTSIDE RECORDS SUMMARY | 2019-09-14 20:39 | XMS REPORT | Encounter Summary ---
Author Author [facility] Organization [facility] Address Unknown Phone Unavailable Care Team Providers Care Food Safety Officer Name Role Phone Charmaine Black PCP Encounter Details Care Team Description Date Type Department Richard Mcmanus MD [address] [facility] [address] [place] [address] [phone] 10/15/2013 [facility] [...]
--- OUTSIDE RECORDS SUMMARY | 2019-09-14 20:39 | XMS REPORT | Encounter Summary ---
Author Author [facility] Organization [facility] Address Unknown Phone Unavailable Care Team Providers Care Septic Tank Setter Name Role Phone Charmaine Black PCP Encounter Details Care Team Description Date Type Department [facility] Provider, MD Luc 11/23/2012 [facility] Social History Date Tobacco Use Types Packs/Day [...] Procedure Name Priority Date/Time Associated Diag nosis NUC EJECTION FRACTION Routine 11/23/2012 HISTORICAL 12:00 AM CDT documented in this encounter Results * Nuc Ejection Fraction historical (11/23/2012 12:00 AM CDT) Ejection 45Comment: PET/CT (Sestamibi [facility] Fraction Dobutamine s/r) Specimen Performing Organization Address City/State/Zipcode Ph one Number [facility] documented in this encounter Visit Diagnoses Not on filedocumented in this encounter
--- OUTSIDE RECORDS SUMMARY | 2019-09-14 20:39 | XMS REPORT | Encounter Summary ---
Author Author [facility] Organization [facility] Address Unknown Phone Unavailable Care Team Providers Care Machine Load Clerk Name Role Phone PCP Unavailable Encounter Details Care Team Description Date Type Department Olman Holloway MD [address] [facility] [address] [place] [address] [phone] Chest pain, unspecified [facility] [address] [place] [address] Social History Date Tobacco Use Types Packs/Day [...] one 0 0 tablet by mouth daily 04/13/2012 10/09/2014 atorvastatin (LIPITOR) 40 take 1 [...] 10 MG tablet tablet by mouth daily 07/10/2004 10/09/2014 metoprolol succinate Take one 30 11 (TOPROL XL) 100 MG 24 hr capsule by tablet mouth daily 06/16/2012 10/09/2014 metoprolol succinate Take one 0 0 (TOPROL XL) 25 MG 24 hr tablet by tablet mouth in the AM. 10/11/2007 10/09/2014 metoprolol succinate Take one 0 0 (TOPROL XL) 25 MG 24 hr tablet by tablet mouth in the AM. 06/16/2012 10/09/2014 metoprolol succinate take 1 tablet [...] (TOPROL-XL) 50 MG 24 hr DAILY. tablet 11/04/2009 10/09/2014 multivitamin (CARDIOTABS take 1 tablet [...] Procedure Name Priority Date/Time Associated Diag nosis CV MPI PET PHARMOCOLOGIC Routine 11/23/2012 REST STRESS WITHOUT 3:30 PM CDT CALCIUM SCORE documented in this encounter Results * CV MPI PET Pharmocologic Rest Stress without Calcium Score (11/23/2012 3:30 PM CDT) Specimen Narrative Performed At NAME: Carl Minor [facility] RAD : [id number] AGE: 77 GENDER: M ACCOUNT NUM: [id number] TEST: REST/STRESS REGADENOSON RUBIDIU M-82 PET/CT REPORT TEST DATE: TEST LOCATION: REFERRING PHYSICIAN: Olman Holloway MD SUPERVISING PHYSICIAN: Richard Carbone Jr, MD MEDICATIONS MEDS LAST 24 HOURS: N/A MEDS HELD LAST 24 HOURS: Toprol, ASA, P rilosec, Zoloft, Carolina 3, Vitamin D, Tylenol, Atorvastatin, CardioTea, Whey Protein, CardioTabs, Synvisc ALLERGIES: Niacin HOURS SINCE LAST CAFFEINE: 24 INDICATIONS FOR TEST: Known CAD, Hyperl ipidemia, Positive Family History, Abnormal ECG, Coronary Artery Bypass Gr aft, Atypical Angina REASON FOR PHARMICOLOGICAL STRESS: Pet Imaging PROCEDURAL NOTE: An intravenous line wa s inserted and an infusion of normal saline was started. A CT scan was acqui red for attenuation correction of the rest image (10 mA, 120 kVp, 4.24 secs) during end-expiration breath-holding, ECG-gating and dose modulation. This was followed by infusion of 30 mCi of Rb-82, 60 to 100 seconds after which re sting images were acquired in list mode with ECG-gating. Following rest imagi ng, A total of 0.4mg regadenoson was injected over 10 seconds at a dosage of 0.08mg/ml immediately followed by a 5ml normal saline flush.Within 20 secon ds, 30.1 mCi of Rb-82 was infused. Peak stress images were acquired in lis t mode with ECG-gating, starting 30 seconds after the the beginning of the infusion of Rb-82 and continuing for 5.[address] scan was acquired f or attenuation correction of the stress image (10 mA, 120 kVp, 4.24 secs) durin g end-expiration breath-holding. <B>CLINICAL RESPONSE:</B> The heart r ate at rest was 83 beats per minute. After the regadenoson injection the hea rt rate was 106 beats per minute. The blood pressure at baseline was 124/58 mmHg. At the end of the regadenoson injection it was 97/50 mmHg. The patient experienced the following symptoms during the test: None GAY TREADMILL SCORE: N/A ECG Findings: The resting EKG showed normal sinus rhythm at a rate of 106 beats per minute with right bundle bran ch block. With stress, atrial premature contractions were seen. Significant rep olarization changes did not occur. Scintographic Findings: The tomograph ic images demonstrated a localized, predominantly nonreversible defect late rally, suggesting a small area of nontransmural injury with minimal ische nery. On the gated tomograms there was mild inferior hypokinesis. The left ciarra tricular ejection fraction was 45% at rest and 45% with stress. Review of t he low-dose, limited yakcp-sn-ibfr CT chest showed changes from prior sternot avelina and bypass surgery. There are coronary artery calcifications and calc ifications in the wall of the thoracic aorta. IN SUMMARY, the clinical, electrocardio graphic, and scintigraphic findings in this 77-year-old male being evaluated f or ischemia using regadenoson are as follows: 1. Clinical response: Non-Di agnostic (Regadenoson) 2. Electrocardiographic response: Non-Isch emic 3. Scintigraphic response: Minimally Ischemic COMBINED TEST RESULTS: Localized area of nontransmural injury and minimal associated ischemia laterally, in the d istribution of an obtuse marginal branch vessel territory.Mild depression of left ventricular systolic function, left ventricular ejection fraction 45%. The is the first myocardial perfusion imaging study since the patients coronary artery bypass operation. Herbert Keenan MD [address], [address] [place] [address] DICTATED DATE: 2012-11-24 00:00:00.0 COMPUTER HARDWARE TECHNICIAN DATETIME: 2012-11-24 15:5 3:42.0 ACTUAL TEST TIME: PROVIDER APPROVAL DATETIME: 2012-11-24 16:42:19.0 Procedure Note Interface, Rad Conversion - 05/15/2013 10:29 AM CDT NAME: Carl Minor : [id number] AGE: 77 GENDER: M ACCOUNT NUM: [id number] TEST: REST/STRESS REGADENOSON RUBIDIUM-82 PET/CT REPORT TEST DATE: TEST LOCATION: REFERRING PHYSICIAN: Olman Holloway MD SUPERVISING PHYSICIAN: Richard Carbone Jr, MD MEDICATIONS MEDS LAST 24 HOURS: N/A MEDS HELD LAST 24 HOURS: Toprol, ASA, Prilosec, Zoloft, Carolina 3, Vitamin D, Tylenol, Atorvastatin, CardioTea, Whey Protein, CardioTabs, Synvisc ALLERGIES: Niacin HOURS SINCE LAST CAFFEINE: 24 INDICATIONS FOR TEST: Known CAD, Hyperlipidemia, Positive Family History, Abnormal ECG, Coronary Artery Bypass Graft, Atypical Angina REASON FOR PHARMICOLOGICAL STRESS: Pet Imaging PROCEDURAL NOTE: An intravenous line was inserted and an infusion of normal saline was started. A CT scan was acquired for attenuation correction of the rest image (10 mA, 120 kVp, 4.24 secs) during end-expiration breath-holding, ECG-gating and dose modulation. This was followed by infusion of 30 mCi of Rb-82, 60 to 100 seconds after which resting images were acquired in list mode with ECG-gating. Following rest imaging, A total of 0.4mg regadenoson was injected over 10 seconds at a dosage of 0.08mg/ml immediately followed by a 5ml normal saline flush.Within 20 second s, 30.1 mCi of Rb-82 was infused. Peak stress images were acquired in list mode with ECG-gating, starting 30 seconds after the the beginning of the infusion of Rb-82 and continuing for 5.[address] scan was acquired for attenuation correction of the stress image (10 mA, 120 kVp, 4.24 secs) during end-expiration breath-holding. <B>CLINICAL RESPONSE:</B> The heart rate at rest was 83 beats per minute. After the regadenoson injection the heart rate was 106 beats per minute. The blood pressure at baseline was 124/58 mmHg. At the end of the regadenoson injection it was 97/50 mmHg. The patient experienced the following symptoms during the test: None GAY TREADMILL SCORE: N/A ECG Findings: The resting EKG showed normal sinus rhythm at a rate of 106 beats per minute with right bundle branch block. With stress, atrial premature contractions were seen. Significant repolarization changes did not occur. Scintographic Findings: The tomographic images demonstrated a localized, predominantly nonreversible defect laterally, suggesting a small area of nontransmural injury with minimal ischemia. On the gated tomograms there was mild inferior hypokinesis. The left ventricular ejection fraction was 45% at rest and 45% with stress. Review of the low-dose, limited oilcp-sr-veqs CT chest showed changes from prior sternotomy and bypass surgery. There are coronary artery calcifications and calcifications in the wall of the thoracic aorta. IN SUMMARY, the clinical, electrocardiographic, and scintigraphic findings in this 77-year-old male being evaluated for ischemia using regadenoson are as follows: 1. Clinical response: Non-Diagnostic (Regadenoson) 2. Electrocardiographic response: Non-Ischemic 3. Scintigraphic response: Minimally Ischemic COMBINED TEST RESULTS: Localized area of nontransmural injury and minimal associated ischemia laterally, in the distribution of an obtuse marginal branch vessel territory.Mild depression of left ventricular systolic function, left ventricular ejection fraction 45%.The is the first myocardial perfusion imaging study since the patients coronary artery bypass operation. Herbert Keenan MD [address] [facility], [address] [place] [address] DICTATED DATE: 2012-11-24 00:00:00.0 COMPUTER HARDWARE TECHNICIAN DATETIME: 2012-11-24 15:53:42.0 ACTUAL TEST TIME: PROVIDER APPROVAL DATETIME: 2012-11-24 16:42:19.0 Performing Organization Address City/State/Zipcode Ph one Number [facility] RAD [address] [facility] [place] [address] documented in this encounter Visit Diagnoses Diagnosis Chest pain, unspecified documented in this encounter
--- OUTSIDE RECORDS SUMMARY | 2019-09-14 20:39 | XMS REPORT | Encounter Summary ---
Author Author [facility] Organization [facility] Address Unknown Phone Unavailable Care Team Providers Care Photographic Artist Name Role Phone Charmaine Black PCP Encounter Details Care Team Description Date Type Department Iza Montoya RN ANP no forwarding address 10/15/2013 [facility] Visit Social History Date [...]
--- OUTSIDE RECORDS SUMMARY | 2019-09-14 20:39 | XMS REPORT | Encounter Summary ---
Author Author [facility] Organization [facility] Address Unknown Phone Unavailable Care Team Providers Care Logging Crew Foreman Name Role Phone Fco Blackeen PCP Encounter Details Care Team Description Date Type Department [facility] ProviderLuc MD 11/23/2012 [facility] Result Social History Date Tobacco Use Types Packs/Day [...] Date/Time Associated Diag nosis CV MPI PET CT HISTORICAL Routine 11/23/2012 documented in this encounter Results * CV MPI PET CT historical (11/23/2012) Specimen Narrative Performed At Procedure Category: PET-CT [facility] Procedure: Rest/Regadenoson Stress Rb-8 2 PET/CT Procedure Summary: Localized area of no ntransmural injury and minimal associated ischemia laterally, in the distribution of an obtuse marginal branch vessel territory.Mild depression of left ventr icular systolic function, left ventricular ejection fraction 45%.The is the first myocardia l perfusion imaging study since the patient s coronary artery bypass operation. Procedure Note Interface, Rad Conversion - 09/24/2014 9:49 AM CDT Procedure Category: PET-CT Procedure: Rest/Regadenoson Stress Rb-82 PET/CT Procedure Summary: Localized area of nontransmural injury and minimal associated ischemia laterally, in the distribution of an obtuse marginal branch vessel territory.Mild depression of left ventricular systolic function, left ventricular ejection fraction 45%.The is the first myocardial perfusion imaging study since the patient s coronary artery bypass operation. Performing Organization Address City/State/Zipcode Ph one Number [facility] documented in this encounter Visit Diagnoses Not on filedocumented in this encounter
--- OUTSIDE RECORDS SUMMARY | 2019-09-14 20:39 | XMS REPORT | Encounter Summary ---
Author Author [facility] Organization [facility] Address Unknown Phone Unavailable Care Team Providers Care Stone Paver Name Role Phone Charmaine Black PCP Encounter Details Care Team Description Date Type Department Stephania Whitaker RN TIME CLOCK INSPECTOR- [address] [place] [address] 10/01/2013 [facility] HISTORIC [...]
--- OUTSIDE RECORDS SUMMARY | 2019-09-14 20:39 | XMS REPORT | Encounter Summary ---
Author Author [facility] Organization [facility] Address Unknown Phone Unavailable Care Team Providers Care Senior Hadoop Developer Name Role Phone Charmaine Black PCP Encounter Details Care Team Description Date Type Department Iza Montoya RN ANP no forwarding address 08/30/2013 [facility] C Visit Social History [...]
--- OUTSIDE RECORDS SUMMARY | 2019-09-14 20:39 | XMS REPORT | Encounter Summary ---
Author Author [facility] Organization [facility] Address Unknown Phone Unavailable Care Team Providers Care Airfield Services Officer Name Role Phone Charmaine Black PCP Encounter Details Care Team Description Date Type Department Stephania Whitaker RN PRODUCTION ARTIST- [address] [place] [address] 08/30/2013 [facility] C Visit Social [...]
--- OUTSIDE RECORDS SUMMARY | 2019-09-14 20:39 | XMS REPORT | Encounter Summary ---
Author Author [facility] Organization [facility] Address Unknown Phone Unavailable Care Team Providers Care Eap Specialist Name Role Phone Charmaine Black PCP Encounter Details Care Team Description Date Type Department Stephania Whitaker RN [employer] OPERATOR- [address] [place] [address] 06/29/2013 [facility] - Hist [facility] HISTORIC CLINI [...]
--- OUTSIDE RECORDS SUMMARY | 2019-09-14 20:39 | XMS REPORT | Encounter Summary ---
Author Author [facility] Organization [facility] Address Unknown Phone Unavailable Care Team Providers Care University Administrator Name Role Phone Charmaine Black PCP Encounter Details Care Team Description Date Type Department Shade Pérez MD [address] [address] [phone] 05/08/2013 Hist-Appointmen [facility] CL [...] Signs Reading Time Taken Comments Vital Sign 116/78 05/08/2013 1:35 PM LINING MAKER HAND Blood Pressure 66 05/08/2013 1:35 PM LINING MAKER HAND Pulse - - Temperature - - Respiratory Rate - - Oxygen Saturation - - Inhaled Oxygen Concentration 85 kg (187 lb 8 oz) 05/08/2013 1:35 PM LINING MAKER HAND Weight 172.7 cm (5' 8") 05/08/2013 1:35 PM LINING MAKER HAND Height 28.51 05/08/2013 1:35 PM LINING MAKER HAND Body Mass Index documented in this encounter Progress Notes * Shade Pérez MD - 05/08/2013 1:40 PM LINING MAKER HAND History of Present Illness Diabetes-[facility]: Reason for Visit: The patient's visit is for a routine clinic follow-up of Type 2 diabetes mellitus (Diagnosed around 2009). The patient's last clinic visit was 8 month(s) ago. Management changes made at t he last visit include ordering CMP and Ur MAB:Cr ratio. Symptoms: no polydipsia, no polyuria, no increased appetite, no weight loss, no fatigue, no blurred vision and no episodes of hypoglycemia. There is no known ev ent that preceded symptom onset. Home Measurement Readings: The patients meter was downloaded and reviewed. Nohemi tao see scanned meter readings for annotations. Associated symptoms: appetite not increased, no nausea, no vomiting, no anorexia , no abdominal pain, no abnormal healing and no confusion. The patient is due for a hemoglobin A1C and a foot exam. Current treatment includes: aspirin (81 mg daily) and losartan 50 mg daily, ator vastatin 40 mg at bedtime daily, CardioTabs [address]: 2 tablets daily [for 1300 m g at EPA/DHA daily], CardioTabs CardioTea: 1 tablet daily. Current treatment als o includes diabetic teaching (Patient completed 3/3 education classes at the [facility] S [facility] at [facility] in January 2012. He has had annual followup classes on 05/14/2011 and 10/05/2012), glucose monitoring (Patient uses a One Touch Ultra glucometer to monitor his fingerstick glucose as an outpatient), regular exercis e (Patient works out at cardiac rehabilitation for 1 hour x 3 days/week, includi ng cardio and resistance training through the cardiac wellness center. He also r ides a bicycle outdoors or a stationary bike for 30-45 minutes on most days of t he week) and diabetic diet (Patient typically eats 3 meals/day, with an occasion al snack in the afternoon). Patient is counting carbs and reports eating 45 carb s per meal. By report, there is good compliance with treatment, good tolerance o f treatment and good symptom control. Pertinent medical [...] on 12/18/2012, with Dr. Paula Wen, from [facility]). Past treatment has included diabetic teaching, glucose monitoring, aspirin, diet modification, exercise program and atorvastatin, CardioTabs [address]-3, CardioTabs Cardiotea. Assessment 1. Type II diabetes mellitus with complication (250.90) 2. Diabetic peripheral neuropathy (250.60,357.2) 3. Dyslipidemia (272.4) 4. Hypertension (401.9) Plan 1. Changed: From Aspirin EC 325 MG Oral Tablet Delayed Release ONE TAB BY MOUTH DAILY To Aspirin EC 81 MG Oral Tablet Delayed Release TAKE 1 TABLET DAILY DIRECTED Rx By: Shade Pérez; Dispense: 30 Days ; #:30 Tablet Delayed Release; Refill: 1 1;For: Coronary artery disease; RICHARD = N; Record Formulary Override Reason: No Formulary Equivalent Exists 2. Changed: From CardioTabs CardioTea TAKE 1 TABLET (for 662.5 mg) BY MOUTH DAILY To CardioTabs CardioTea TAKE 2 TABLETS (for 662.5 mg) BY MOUTH DAILY Rx By: Shade Pérez; Dispense: 30 Days ; #:60; Refill: 11;[facility]; RICHARD = N; Record 3. Glucose Finger Stick Status: Complete Done: 08May2013 01:38PM Performed: In Office Due: 13May2013 Marked Important; Last Updated By: EBONY GIBBS; 05/08/2013 1:38:36 PM; Ordered;For: Type II diabetes mellitus with complicat ion; Ordered By: Shade Pérez W 1. Diabetes mellitus 2. Complicated by peripheral neuropathy. - Controlled, as evidenced by his fingerstick A1c of 6% today in clinic, which i s relatively stable from his laboratory A1c of 6.3% on 04/10/2013. - Review of his glucometer download indicates reasonable control as an outpatien t. - I recommend he continue with therapeutic lifestyle changes, for management of his diabetes. - However, he does need to work a little more diligently on his diet and exercis e. - He can continue monitoring his fingerstick glucose once daily, and alternate h is evaluations between pre-breakfast, pre-lunch, pre-supper, and bedtime. - He does follow with a international banker for toenail grooming end additional foot care , so I will request a copy of records from his international banker. - His annual retinal exam is up-to-date. - His annual urine MAB:Cr ratio is up-to-date - I will see him back in clinic for routine followup in 6 months. 2. Dyslipidemia. - Lipids were well controlled on 04/10/2013. - His AST and ALT were also normal on 04/10/2013. - He appears to be tolerating atorvastatin 40 mg daily [address]: 2 tablets (for 1200 mg of EPA/DHA) daily. - I recommend he continue his current regimen. 3. Hypertension. - Blood pressure is at goal. - I recommend he continue his current therapy. CC: Charmaine Black M.D. Olman Holloway M.D. Current Meds 1. Aspirin EC 81 MG Oral Tablet Delayed Release; TAKE 1 TABLET DAILY DIRECTED ; Therapy: 25Nov2009 to (Evaluate:[id number]); Last Rx:08May2013 Ordered 2. Atorvastatin Calcium 40 MG Oral Tablet; TAKE 1 TABLET DAILY AT BEDTIME; Therapy: 09Jan2010 to (Evaluate:[id number]) Recorded 3. CardioTabs CardioTea; TAKE 2 TABLETS (for 662.5 mg) BY MOUTH DAILY; Therapy: 18Apr2012 to (Evaluate:[id number]); Last Rx:08May2013 Ordered 4. CardioTabs CardioWhey; take 1 scoop (for 26 g) mixed in almond milk by mouth daily; Therapy: 08May2013 to Recorded 5. CardioTabs [address] 3; TAKE 2 TABLETS (for 1200 mg of EPA/DHA) BY MOUTH DAILY; Therapy: 85Nbz0183 to (Evaluate:[id number]) Recorded 6. Losartan Potassium 50 MG Oral Tablet; TAKE 1 TABLET BY MOUTH DAILY; Therapy: 08May2013 to (Evaluate:[id number]) Recorded 7. Metoprolol Succinate ER 50 MG Oral Tablet Extended Release 24 Hour; TAKE 1 TA BLET DAILY; Therapy: 14Oct2009 to (Evaluate:[id number]) Recorded 8. Miscellaneous OTC Drugs; Please fit patient for diabetic shoes; DX: 250.9 (DM 2 w/ complication, 357.2 (diabetic periph neuropathy), 443.9 (PVD); Therapy: 05Bgb8702 to (Last Rx:[id number]) Ordered 9. Omeprazole 20 MG Oral Capsule Delayed Release; TAKE 1 CAPSULE DAILY; Therapy: 14Oct2009 to (Evaluate:13Apr2013) Recorded 10. OneTouch Delica Lancets Fine Miscellaneous; TEST ONCE DAILY; DX: 250.9; Therapy: 80Msk4531 to (Evaluate:12Aug2013) Requested for: 73Rde0973; Last Rx:[id number] Ordered 11. OneTouch Ultra Blue In Vitro Strip; TEST ONCE DAILY; DX: 250.9; Therapy: 47Ihl6039 to (Evaluate:12Aug2013) Requested for: 79Zai1474; Last Rx:[id number] Ordered 12. Sertraline HCl - 50 MG Oral Tablet; TAKE 1 TABLET DAILY; Therapy: 14Oct2009 to (Evaluate:11Oct2013) Recorded 13. Synvisc 8 MG/ML Intra-articular Injectable; USE DIRECTED; Therapy: 16Oct2012 to Recorded 14. TH Vitamin D3 1000 UNIT Oral Capsule; TAKE 2 CAPSULES BY MOUTH DAILY; Therapy: 14Oct2009 to (Evaluate:13Apr2013) Recorded 15. Tylenol Extra Strength 500 MG Oral Tablet; TAKE 1 TABLET EVERY 6 HOURS NEEDED; Therapy: 16Oct2012 to (Evaluate:15Dec2012) Recorded Allergies 1. Niaspan TBCR Adverse Reaction ; Thrombocytopenia; Recorded By: Shade Pérez; 11/02/2011 8: 28:17 AM Vitals Vital Signs [Data Includes: Last 1 Day] Recorded by : EBONY GIBBS at 08May2013 01:35PM Height 5 ft 8 in Weight 187 lb 8 oz BMI Calculated 28.51 BSA Calculated 1.99 Systolic 116 Diastolic 78 Heart Rate 66 Waist Circumference 36 in Immunizations 1 Influenza 08Nov2012 Review of Systems A 10 point review [...] History of Appendectomy 2. History of CABG (CABG) 4 vv 3. History of Cholecystectomy Laparoscopic 4. History of Dental Surgery 2 infected molars extracted 5. History of Partial Colectomy 6. History of Transcath Intravascular Stent Placement Percutaneous Renal Family History 1. Family history of Coronary Artery Disease Brother and Father 2. Family history of Dementia Mom and Sister 3. Family history of Stroke Syndrome (V17.1) Mom 4. Family history of Type 2 Diabetes Mellitus Mom and Grandmother Social History 1. Being A Social [...] ulc ers noted. The right foot was abnormal and mild hallux valgus of big toe. The right toes we re abnormal and thick toenail of big toe. Pulse of 1 in the posterior tibialis r ight foot. Pulse is 2 in the dorsalis pedis of the right foot. The left foot was abnormal and mild hallux valgus of big toe. The left toes were abnormal and thi ck toenail of big toe. Pulse is 1 in the posterior tibialis in the left foot. Pu lse is 2 in the dorsalis pedis of [...] 1 Instance] Printed in Appendix #1 below. Results Glucose Finger Stick 08May2013 01:38PM Shade Pérez 2030 PP Test Name Result Flag Reference Glucose Finger Stick 117 A Comprehensive Metabolic [id number] 11:47AM Shade Pérez [Oct 16, 2012 7:03PM Shade Pérez] Serum glucose is at goal. Renal function, electrolytes, and LFTs are normal. Uri ne microalbumin is undetectable, so no evidence for nephropathy. Continue curren t therapy/recommendations made at appointment. Test Name Result Flag Reference Sodium 141 MEQ/L 133-147 Potassium 4.4 MEQ/L 3.5-5.3 Potassium reference interval changed on 08/02/2012.^^ Chloride 103 MEQ/L 96-112 Carbon Dioxide 27 MEQ/L 20-30 Anion Gap 12 5-17 Calcium 9.5 mg/dL 8.4-10.2 Protein Total Serum 6.9 g/dL 6.0-8.2 Albumin 4.5 g/dL 3.5-5.0 Alkaline Phosphatase 63 IU/L 42-140 Alanine Aminotransferase 32 IU/L 13-69 Aspartate Aminotransferase 23 IU/L 15-46 Bilirubin Total 0.8 mg/dL 0.2-1.3 Blood Urea Nitrogen 29 mg/dL H 7-26 Creatinine 1.0 mg/dL 0.6-1.3 Gfrm Aa 87 Chronic Kidney Disease less than 60 mL/min/1.73 sq.m^^ Kidney failure less than 15 mL/min/1.73 sq.m^^ Gfrm Non Aa 72 Chronic Kidney Disease less than 60 mL/min/1.73 sq.m^^ Kidney failure less than 15 mL/min/1.73 sq.m^^ Glucose [id number] 11:47AM Shade Pérez [Oct 16, 2012 7:03PM Shade Pérez] Serum glucose is at goal. Renal function, electrolytes, and LFTs are normal. Uri ne microalbumin is undetectable, so no evidence for nephropathy. Continue curren t therapy/recommendations made at appointment. Test Name Result Flag Reference Glucose 99 mg/dL 70-100 Hemoglobin A1C Finger Stick [id number] 10:50AM Shade Pérez Test Name Result Flag Reference Hemoglobin A1C Finger Stick 5.9% H Lipid Profile 16Jun2012 12:00AM Shade Pérez [facility] Test Name Result Flag Reference Cholesterol Lipid Prof 116 Triglycerides 68 Hdl 41 Ldl Cholesterol 61 Total Cholesterol/Hdl Ratio 2.83 04/10/2013 ([facility]): Glucose 122*, AST 21, ALT 33 06/16/2012 ([facility]): Fasting glucose 107*, AST 21, ALT 26 02/09/2012 ([facility]): AST 21, ALT 36 10/13/2011 ([facility]): Fasting glucose 116*, AST 25, ALT 19 Signatures Electronically signed by : Shade Pérez M.D.; May 08 2013 2:47PM LINING MAKER HAND (Author) Appendix #1 Diabetes Flowsheet [Data Includes: Last 1 Instance] Patient: CARL CHILDERS; : 1935; Goal [id number] Leg / Foot Monofilament Wire Test Decreased Sensation Negative Feet Appearance Left Negative Feet Appearance Right Negative Pulse Amp litude Posterior Tibialis Left 1 Pulse Amplitude Posterior Tibialis Right 1 Pulse Amplitude Dorsalis Pedis Left 2 Pulse Amplitude Dorsalis Pedis Right 2 Systolic 116 Diastolic 78 Height 5 ft 8 in Weight 1 87 lb 8 oz BMI Calculated 28.51 BSA Calculated 1.99 Hemoglobin A1C Finger Stick 6% Hemoglobin A1C 6.3% Cholesterol Lipid Prof 133 Triglycerides 127 Hdl 39 Ldl Cholesterol 69 Total Cholestero l/Hdl Ratio 2.83 Non- HDL Cholesterol 95 mg/dL Microalbumin Mg/L < 0.50 mg/dL Creatinine, Urine Random Quant 57.2 mg/dL Microalbumin/Creatin ine Ratio Not Calc ug/mg NG MAKER HAND * Shade Pérez MD - 05/08/2013 1:40 PM LINING MAKER HAND Clinical Summary Patient Details for CARL CHILDERS Preferred Name [facility] [id number] [facility] [address] Address [place] Language 1935 Born White Race Non- or Ethnicity Today's Appointment Shade Pérez M.D. Provider 08 May 2013 01:40 PM Appointment Current Health Issues Anxiety Benign colonic [...] Surgical History History of Appendectomy of CABG (CABG) 4 vv of Cholecystectomy Laparoscopic of Dental [...] in almond milk by mouth daily CardioTabs [address] 3 TAKE 2 TABLETS (for 1200 mg [...] Influenza 08 Nov 2012 Vital Signs Date/Time 05/08/2013 1:35:00 PM Blood Pressure 116 / 78 Heart Rate 66 bpm Height 5 ft 8 in Weight 187 lb 8.0 oz BMI Calculated 28.51 kg/m2 BSA Calculated 1.99 m2 Waist Circumference 36 in Results Finger Stick, Collected/Examined: 08-May-2013 01:38PM PP Finger Stick: Value = 117; Abnormal Treatment Plans Appointment: Provider Date/Time Location Shade Pérez M.D. 14 Sep 2013 02:20 PM [facility] Interventions Changes: Medications Update Old Instructions New Instructions Aspirin EC 81 MG Oral Tablet Delayed Release Renew with Changes ONE TAB BY MOUTH DAILY TAKE 1 TABLET DAILY DIRECTED. CardioTabs CardioTea Renew with Changes TAKE 1 TABLET (for 662.5 mg) BY MOUTH DAILY TAKE 2 TABLETS (for 662.5 mg) BY MOUTH DAILY Glucose Finger Stick; Done: 08 May 2013 1. Diabetes mellitus 2. Complicated by peripheral neuropathy, which is currently asymptomatic. - Controlled, as evidenced by his fingerstick A1c of 5.9% today in clinic, which is relatively stable from his laboratory A1c of 6% from [facility] on 06/16/2012. - Review of his glucometer readings indicate reasonable control. - I recommend he continue with current therapeutic lifestyle changes, including diet and exercise, for his diabetes management. - He can decrease fingerstick glucose monitoring to once daily, alternating between pre-breakfast, pre-lunch, pre-supper, and bedtime. - He is requesting diabetic shoes, so I will give him a prescription to take to his international banker for diabetic shoes (Re: Diabetes me llitus 2, peripheral neuropathy, and peripheral vascular disease) - His annual retinal exam is up-to-date. - I will check his renal function, electrolytes, and update his annual urine MAB:Cr ratio today. - I will see him back in clini c for followup in 6 months. 2. Dyslipidemia. - Lipids were well controlled on 06/16/2012, per [facility] records. - His AST was normal the same day. - He ap pears to be tolerating atorvastatin [address] tablets, o f which he takes 2 tablets (for 1300 mg of EPA/DHA) daily. - I will update his LFTs today. - I recommend he continue his current regimen. 3. Hypertension. - Blood pressure is at goal. - I recommend he continue his current therapy. CC: Charmaine Black M.D. Olman Holloway M.D. FollowupPlan: ; Document Details [facility] Name Phone 08 May 2013 01:58 PM Created Date/Time [address] [place] [address] Site Address NG MAKER HAND documented in this encounter Plan of Treatment Not on filedocumented as of this encounter Procedures Comments Procedure Name Priority Date/Time Associated Diag nosis POCT GLYCOSYLATED Routine 05/08/2013 HEMOGLOBIN (HGB A1C) 1:45 PM LINING MAKER HAND GLUCOSE POC Routine 05/08/2013 1:38 PM LINING MAKER HAND LIPID PANEL Routine 04/10/2013 10:22 AM LINING MAKER HAND HEMOGLOBIN A1C Routine 04/10/2013 10:22 AM LINING MAKER HAND documented in this encounter Results * POCT glycosylated hemoglobin (Hb A1C) (05/08/2013 1:45 PM LINING MAKER HAND) Hemoglobin A1c 0 (H) 0 OFFICE ENTERED Finger Stick Specimen Performing Organization Address [facility] one Number OFFICE ENTERED * GLUCOSE POC (05/08/2013 1:38 PM LINING MAKER HAND) Glucose, 117 (A) 0 OFFICE ENTERED Fingerstick Specimen Performing Organization Address [facility] one Number OFFICE ENTERED * Hemoglobin A1C (04/10/2013 10:22 AM LINING MAKER HAND) Hemoglobin A1C 0 (H) 0 OFFICE ENTERED Specimen Performing Organization Address [facility] one Number OFFICE ENTERED * Lipid Panel (04/10/2013 10:22 AM LINING MAKER HAND) Cholesterol 133 0 OFFICE ENTERED Triglycerides 127 0 OFFICE ENTERED HDL Cholesterol 39 0 OFFICE ENTERED LDL Cholesterol 69 0 OFFICE ENTERED Specimen Performing Organization Address [facility] one Number OFFICE ENTERED documented in this encounter Visit Diagnoses Not on filedocumented in this encounter
--- OUTSIDE RECORDS SUMMARY | 2019-09-14 20:39 | XMS REPORT | Encounter Summary ---
Author Author [facility] Address Unknown Phone Unavailable Care Team Providers Care Articulation Officer Name Role Phone Benjie Montano PCP Encounter Details Care Team Description Date Type Department ProviderLuc MD [address] [place] [address] 05/08/2013 Hist-Transcript [facility] Family Medicine ion Encounter [address] [place] [address] Social History Date Tobacco Use Types Packs/Day Years Used Never Assessed Sex Assigned at Date Recorded Not on file Industry Job Start Date Occupation Not on file Not on file Not on file Travel End Travel History Travel Start No recent travel history available. documented as of this encounter Progress Notes * ProviderLuc MD - 05/08/2013 1:40 PM SQL REPORT ANALYST Date: 08 May 2013 3:49 PM SQL REPORT ANALYST, Recorded By: Padma Chery Caller: CARL CHILDERS Self (Mobile Phone) Spoke with patient regarding request for DM shoes. Last order was filled with [facility] pharmacy on 01/22/13. Advised patient orders are valid for a 12 mo period . Expressed understanding. KIMANI Cowart Electronically signed by:Padma Chery May 08 2013 3:50PM SQL REPORT ANALYST Author documented in this encounter Plan of Treatment Not on filedocumented as of this encounter Visit Diagnoses Not on filedocumented in this encounter
--- OUTSIDE RECORDS SUMMARY | 2019-09-14 20:39 | XMS REPORT | Encounter Summary ---
Author Author [facility] Organization [facility] Address Unknown Phone Unavailable Care Team Providers Care Dishwashing Machine Operator Name Role Phone Ananth Black PCP Encounter Details Care Team Description Date [place] [address] [place] [address] [phone] 11/27/2012 [facility] Visit Social History Date Tobacco Use Types Packs/Day Years Used Never Assessed Sex Assigned at Date Recorded Not on file Industry Job Start Date Occupation Not on file Not on file Not on file Travel End Travel History Travel Start No recent travel history available. documented as of this encounter Progress Notes * Olman Holloway MD - 11/27/2012 1:01 PM CDT [place] [facility] [address] [place] [address] 12/12/2012 ANANTH BLACK MD [address] [facility] [place] [address] Re: CARL MOORECONY : 1935 Chart#: [id number] Dear Dr. BLACK: This is a followup note regarding CARL OSCARCONY. He has completed his cardiac fili ting and I am writing to share the results with you. He had the following tests: Myocardial perfusion imaging: Localized area of nontransmural injury and minimal associated ischemia laterally, in the distribution of an obtuse marginal branch vessel territory.Mild depression of left ventricular systolic function, left ve ntricular ejection fraction 45%.The is the first myocardial perfusion imaging st udy since the patients coronary artery bypass operation. These test results along with my recommendations have been communicated to CARL CHILDERS. I hope this information is useful to you. If you should have any quest ions or concerns, please do not hesitate to contact me. Sincerely, Olman Holloway M.D. cc: Shade Pérez MD [facility] [address] documented in this encounter Plan of Treatment Not on filedocumented as of this encounter Visit Diagnoses Not on filedocumented in this encounter
--- OUTSIDE RECORDS SUMMARY | 2019-09-14 20:39 | XMS REPORT | Encounter Summary ---
Author Author [facility] Organization [facility] Address Unknown Phone Unavailable Care Team Providers Care Flower Maker Name Role Phone Charmaine Black PCP Encounter Details Care Team Description Date Type Department Stephania Whitaker RN HOUSEKEEPER- [address] [place] [address] 03/20/2013 [facility] - [facility] Visit Social History [...]
--- OUTSIDE RECORDS SUMMARY | 2019-09-14 20:40 | XMS REPORT | Encounter Summary ---
Author Author [facility] Organization [facility] Address Unknown Phone Unavailable Care Team Providers Care Ornamental Metal Worker Helper Name Role Phone PCP Unavailable Encounter Details Care Team Description Date Type Department Shade Pérez MD [address] [phone] 10/16/2012 [facility] Encounter [address] [place], [place] [id number] Social History Date Tobacco Use Types Packs/Day Years Used Never Assessed Sex Assigned at Date Recorded Not on file Industry Job Start Date Occupation Not on file Not on file Not on file Travel End Travel History Travel Start No recent travel history available. documented as of this encounter Medications at Time of Discharge Start Date End Date Medication Sig Dispensed Refills 11/09/2011 omeprazole (PRILOSEC OTC) Take one 0 [...] Name Priority Date/Time Associated Diag nosis GLUCOSE Routine 10/16/2012 11:47 AM CDT COMPREHENSIVE METABOLIC Routine 10/16/2012 11:47 AM CDT MICROALBUMIN RANDOM Routine 10/16/2012 11:47 AM CDT documented in this encounter Results * Comprehensive Metabolic (10/16/2012 11:47 AM CDT) Sodium 141 133 - 147 MEQ/L [facility] Potassium 4.4Comment: Potassium 3.5 - 5.3 MEQ/L [facility] reference interval changed on 08/02/2012. Chloride 103 96 - 112 MEQ/L [facility] Carbon Dioxide 27 20 - 30 MEQ/L [facility] Anion Gap 12 5 - 17 [facility] Calcium 9.5 8.4 - 10.2 MG/DL [facility] Protein Total 6.9 6.0 - 8.2 G/DL [facility] Serum Albumin 4.5 3.5 - 5.0 G/DL [facility] Alkaline 63 42 - 140 IU/L [facility] Phosphatase Alanine 32 13 - 69 IU/L [facility] Aminotransferas e Aspartate 23 15 - 46 IU/L [facility] Aminotransferas e Bilirubin Total 0.8 0.2 - 1.3 MG/DL [facility] Blood Urea 29 (H) 7 - 26 MG/DL [facility] Nitrogen Creatinine 1.0 0.6 - 1.3 MG/DL [facility] eGFR Male AA 87 [facility] Comment: Chronic Kidney Disease less than 60 mL/min/1.73 sq.m Kidney failure less than 15 mL/min/1.73 sq.m eGFR Male 72 [facility] Non-AA Comment: Chronic Kidney Disease less than 60 mL/min/1.73 sq.m Kidney failure less than 15 mL/min/1.73 sq.m Specimen Blood Performing Organization Address [facility] Ph one Number [id number] [phone] [place], [place] [address] [facility] * Glucose (10/16/2012 11:47 AM CDT) Glucose 99 70 - 100 MG/DL [facility] Specimen Blood Performing Organization Address [facility] Ph one Number [facility] [phone] [place], [place] [address] [facility] * Microalbumin Random (10/16/2012 11:47 AM CDT) Creatinine 57.2 MG/DL [facility] Urine Random Microalbumin/Cr Not CalcComment: Microalbumin 0.00 - 16.00 UG /MG [facility] eatinine Ratio is too low to be measured. Calculation cannot be performed Microalbumin <0.50 MG/DL [facility] mg/dl Specimen Urine Performing Organization Address [facility] Ph one Number [facility] [address] [place], [place] [address] [facility] documented in this encounter Visit Diagnoses Not on filedocumented in this encounter
--- OUTSIDE RECORDS SUMMARY | 2019-09-14 20:40 | XMS REPORT | Encounter Summary ---
Author Author [facility] Organization [facility] Address Unknown Phone Unavailable Care Team Providers Care Market Development Manager Name Role Phone Charmaine Black PCP Encounter Details Care Team Description Date Type Department 10/05/2012 [facility] Social History Date Tobacco Use Types Packs/Day Years Used Never Assessed Sex Assigned at Date Recorded Not on file Industry Job Start Date Occupation Not on file Not on file Not on file Travel End Travel History Travel Start No recent travel history available. documented as of this encounter Progress Notes * ProviderLuc MD - 10/05/2012 5:59 PM CDT Diabetes Education Note: Carl attended the Annual Follow up class today. His b lood sugars are virtually all within goal. His pharmacist told him he would onl y be able to SMBG 1 x daily which he said frustrated him because he feels that h e is getting benefit and motivation to keep working on his self-management as he sees the blood sugar results. Reviewed guidelines for individuals taking no me dication or oral medications for glucose management. Would like to continue fili ting BID as "this is a set routine". Discussed option to pay for additional str ips out of pocket if he feels very strongly about this and if unable to get them with insurance coverage. Overall doing extremely well with managing his nutrit ion and exercise. Encourage to schedule annual follow up in 2013 to coordinate with physician visit due to long distance travel to clinic. Thank you. Electronically signed by:Melissa CASTAÑEDA Oct 05 2012 6:06PM OIL SEPARATOR Author documented in this encounter Plan of Treatment Not on filedocumented as of this encounter Visit Diagnoses Not on filedocumented in this encounter
--- OUTSIDE RECORDS SUMMARY | 2019-09-14 20:40 | XMS REPORT | Encounter Summary ---
Author Author [facility] Organization [facility] Address Unknown Phone Unavailable Care Team Providers Care Signal Intelligence/Electronic Warfare Name Role Phone PCP Unavailable Encounter Details Care Team Description Date Type Department Shade Pérez MD [address] [id number] Type II or unspecified type diabetes jasmin litus with unspecified complication, not stated as uncontrolled 10/05/2012 [facility] Encounter [address] [place], [place] [phone] Social History Date Tobacco Use Types Packs/Day [...] ORAL route every day in the evening 10/20/2010 10/09/2014 tadalafil (CIALIS) 2.5 mg take 1 tablet 0 0 Tab (2.5MG) by oral route as needed 07/09/2004 10/09/2014 vardenafil (LEVITRA) 20 PRN 0 0 MG tablet documented as of this encounter Plan of Treatment Not on filedocumented as of this encounter Visit Diagnoses Diagnosis Type II or unspecified type diabetes me llitus with unspecified complication, not stated as uncontrolled documented in this encounter
--- OUTSIDE RECORDS SUMMARY | 2019-09-14 20:40 | XMS REPORT | Encounter Summary ---
Author Author [facility] Organization [facility] Address Unknown Phone Unavailable Care Team Providers Care Worm Packer Name Role Phone Charmaine Black PCP Encounter Details Care Team Description Date Type Department Shade Pérez MD [address] [address] [phone] 10/16/2012 Hist-Appointmen [facility] [...] Signs Reading Time Taken Comments Vital Sign 124/62 10/16/2012 10:48 AM CDT Blood Pressure 68 10/16/2012 10:48 AM CDT Pulse - - Temperature - - Respiratory Rate - - Oxygen Saturation - - Inhaled Oxygen Concentration 85 kg (187 lb 6.1 oz) 10/16/2012 10:48 AM CDT Weight 172.7 cm (5' 8") 10/16/2012 10:48 AM CDT Height 28.49 10/16/2012 10:48 AM CDT Body Mass Index documented in this encounter Progress Notes * Shade Pérez MD - 10/16/2012 10:40 AM CDT History of Present Illness Diabetes-[facility]: Reason for Visit: The patient's visit is for a routine clinic follow-up of Type 2 diabetes mellitus (Dx'd 2009). The patient's last clinic visit was 6 month(s) ago. Management changes made at t he last visit include ordering renal panel. Symptoms: no polydipsia, no polyuria, no increased appetite, no fatigue, no blur red vision and no episodes of hypoglycemia The patient presents with complaints of no weight loss. There is no known event that preceded symptom onset. Home Measurement Readings: Pertinent medical history: hypertension, coronary ar ashley disease, peripheral vascular disease, carotid occlusive disease, hyperlipid emia and neuropathy, but no nephropathy and no retinopathy. Risk factors: no ob esity, no inactivity, no prolonged corticosteroid use and no use of psychotropic medications. Family history: diabetes mellitus type II and obesity, but no yoselin betes mellitus type I and no premature coronary artery disease. Associated symptoms: appetite not increased, no nausea, no vomiting, no anorexia , no abdominal pain, no abnormal healing and no confusion. The patient is due for a hemoglobin A1C. Current treatment includes: aspirin (325 mg daily) and atorvastatin 40 mg daily; Cardiotab Fairburn 3: 2 capsules [for 1300 mg of EPA/DHA] daily. Current treatment also includes diabetic teaching (completed 05/07 classed in January 2010 at [facility]; annual f/u on 05/14/2011 and 10/05/2012), glucose monitoring (One Touch Ultra), regular exercise (Cardiac rehabilitation for 1 hour x 3 days/week. Circu quality controller for 20-30 min x 3 days/week. Bike riding [Outdoors or Stationary bike ] for 30-45 minutes on most days of the week) and diabetic diet (eats 3 meals/da y with occasional afternoon snack). Patient is counting carbs and reports eating 45 carbs per meal. By report, there is good compliance with treatment, good tyree erance of treatment and good symptom control. Pertinent medical history: hypertension, coronary artery disease, peripheral va scular disease, carotid occlusive disease, renal artery stenosis, hyperlipidemia and neuropathy (currently asx), but no stroke, no cataract(s), no glaucoma, no nephropathy and no retinopathy. Risk factors: no obesity, no inactivity, no pro longed corticosteroid use and no use of psychotropic medications. Family history : diabetes mellitus type II and obesity, but no diabetes mellitus type I and no premature coronary artery disease. Past evaluation has included hemoglobin A1c, metabolic panel, fasting lipid prof ile, urinalysis (last Ur MAB undetectable on 11/02/2011), ophthalmology examinat ion (last retinal evaluation was on 01/11/2012) and Podiatry evaluation (2012). Past treatment has included diabetic teaching, glucose monitoring, aspirin, FINA inhibitor, diet modification, exercise program and atorvastatin 40 mg daily and CardioTab Fairburn-3 fish oil. Assessment 1. Type 2 Diabetes Mellitus With Complication 250.90 2. Diabetic Peripheral Neuropathy 357.2 3. Dyslipidemia 272.4 4. Hypertension 401.9 Plan 1. Miscellaneous OTC Drugs; Please fit patient for diabetic shoes; DX: 250.9 (DM 2 w/ complication, 357.2 (diabetic periph neuropathy), 443.9 (PVD); Therapy: 75Gpu1061 to (Last Rx :[id number]) Ordered; For: Diabetic Peripheral Neuropathy (357.2), Peripheral Vascular Diseas e (443.9), Type 2 Diabetes Mellitus With Complication (250.90); Rx By: Svetlana Pérez; Dispense: 0 Days ; #:1; Refill: 0; Print Rx; Do Not Fill Before: [id number] 2. OneTouch Delica Lancets Fine Miscellaneous; TEST ONCE DAILY; DX: 250.9; Thera py: 83Pcs6068 to (Evaluate:12Aug2013) Requested for: 82Icl9527; Last Rx:[id number]; Edited Ordered; For: Type 2 Diabetes Mellitus With Complication (250.90); Rx By: Shade Pérez; Dispense: 100 Days ; #:100 EA; Refill: 2; Verified Transmission to [facility]; Last Updated By: [employer] [facility] 3. OneTouch Ultra Blue In Vitro Strip; TEST ONCE DAILY; DX: 250.9; Therapy: 21Se p2010 to (Evaluate:12Aug2013) Requested for: 77Kjk0910; Last Rx:[id number]; Edited Ordered; For: Type 2 Diabetes Mellitus With Complication (250.90); Rx By: Shade Pérez; Dispense: 100 Days ; #:100 EA; Refill: 2; Verified Transmission to [facility] #[facility]; Last Updated By: [employer] [facility] 1. Diabetes mellitus 2. Complicated by peripheral neuropathy, which is now a symptomatic. - Controlled, as evidenced by his fingerstick A1c of 5.9% today in clinic, which is relatively stable from his laboratory A1c of 6% from [facility] on 06/16/2012. - Review of his glucometer readings indicate reasonable control. - I recommend he continue with current therapeutic lifestyle changes, including diet and exercise, for his diabetes management. - He can decrease fingerstick glucose monitoring to once daily, alternating betw een pre-breakfast, pre-lunch, pre-supper, and bedtime. - He is requesting diabetic shoes, so I will give him a prescription to take to his business risk analyst for diabetic shoes (Re: Diabetes mellitus 2, peripheral neuropath y, and peripheral vascular disease) - His annual retinal exam is up-to-date. - I will check his renal function, electrolytes, and update his annual urine MAB :Cr ratio today. - I will see him back in clinic for followup in 6 months. 2. Dyslipidemia. - Lipids were well controlled on 06/16/2012, per [facility] records. - His AST was normal the same day. - He appears to be tolerating atorvastatin 40 mg daily and Cardiotab omega 3 tab lets at 2 tablets (for 1300 mg of EPA/DHA) daily. - I will update his LFTs today. - I recommend he continue his current regimen. 3. Hypertension. - Blood pressure is at goal. - I recommend he continue his current therapy. CC: Charmaine Black M.D. Olman Holloway M.D. Current Meds 1. Aspirin EC 325 MG Oral Tablet Delayed Release; ONE TAB BY MOUTH DAILY; Therap y: 25Nov2009 to (Evaluate:46Kdm4326) Recorded; For: Coronary Artery Disease (414.00); Rx By: Shade Pérez; Dispense: 30 Days ; #:30 Tablet Delayed Release; Refill: 11; Record Formulary Override Reason: No Formulary Equivalent Exists 2. Atorvastatin Calcium 40 MG Oral Tablet; TAKE 1 TABLET DAILY AT BEDTIME; Thera py: 09Jan2010 to (Evaluate:08Ahv0492) Recorded; For: Dyslipidemia (272.4); Rx By: Shade Pérez; Dispense: 30 Days ; #: 30 Tablet; Refill: 11; RICHARD; Record 3. CardioTabs CardioTea; TAKE 1 TABLET (for 662.5 mg) BY MOUTH DAILY; Therapy: 1 9Vgv9723 to (Evaluate:44Kag8238) Recorded; For: Health Maintenance (V70.0); Rx By: Shade Pérez; Dispense: 30 Day s ; #:30; Refill: 11; Record 4. CardioTabs Fairburn 3; TAKE 2 TABLETS (for 1300 mg of EPA/DHA) BY MOUTH DAILY; T herapy: 20Zbx0013 to (Evaluate:18Vqc8483) Recorded; For: Dyslipidemia (272.4); Rx By: Shade Pérez; Dispense: 30 Days ; #: 60; Refill: 11; Record 5. Cialis 20 MG Oral Tablet; TAKE 1 TABLET NEEDED; Therapy: 45Iwi6472 to (Evaluate:93Jcb0894) Recorded; For: Male Erectile Disorder (302.72); Rx By: Shade Pérez; Dispense: 3 0 Days ; #:10 Tablet; Refill: 3; Record Formulary Override Reason: Patient has requested non-preferred drug 6. Metoprolol Succinate ER 50 MG Oral Tablet Extended Release 24 Hour; TAKE 1 TA BLET DAILY; Therapy: 99Rxm9038 to (Evaluate:58Bty0807) Recorded; For: Hypertension (401.9); Rx By: Shade Pérez; Dispense: 30 Days ; #: 30 Tablet Extended Release 24 Hour; Refill: 11; RICHARD; Record 7. Omeprazole 20 MG Oral Capsule Delayed Release; TAKE 1 CAPSULE DAILY; Therapy: 49Jkg3419 to (Evaluate:38Yrj7214) Recorded; For: Esophageal Reflux (530.81); Rx By: Shade Pérez; Dispense: 30 Day s ; #:30 Capsule Delayed Release; Refill: 11; Record 8. OneTouch Delica Lancets Fine Miscellaneous; TEST TWICE DAILY, FOR DM2 250.9; Therapy: 70Jnt1324 to (Evaluate:28Aug2013) Requested for: 19Cbp3450; Last Rx:46Mmr1395 Ordered; For: Type 2 Diabetes Mellitus With Complication (250.90); Rx By: Shade Pérez; Dispense: 50 Days ; #:100 EA; Refill: 6; Verified Transmission to [facility] #[facility]; Last Updated By: [employer] 9. OneTouch Ultra Blue In Vitro Strip; TEST TWICE DAILY, FOR DM2 250.9; Therapy: 86Ghb6701 to (Evaluate:17Aug2013) Requested for: 01Sep2012; Last Rx:01Sep2012 Ordered; For: Type 2 Diabetes Mellitus With Complication (250.90); Rx By: Shade Pérez; Dispense: 50 Days ; #:100 EA; Refill: 6; Verified Transmission to [facility] #108; Last Updated By: [employer] [facility] 10. Sertraline HCl 50 MG Oral Tablet; TAKE 1 TABLET DAILY; Therapy: 14Oct2009 to (Evaluate:11Oct2013) Recorded; For: Anxiety (Symptom) (300.00), Depressive Disorder NOS (311); Rx By: Shade Pérez; Dispense: 30 Days ; #:30 Tablet; Refill: 11; Record 11. Synvisc 8 MG/ML Intra-articular Injectable; USE DIRECTED; Therapy: to Recorded; For: Generalized Osteoarthritis Of Multiple Sites (715.09); Rx By: Shade Echavarria; Dispense: 0 Days ; #: Sufficient ML; Refill: 0; Record 12. TH Vitamin D3 1000 UNIT Oral Capsule; TAKE 2 CAPSULES BY MOUTH DAILY; Therap y: 14Oct2009 to (Evaluate:13Apr2013) Recorded; For: Vitamin D Deficiency (268.9); Rx By: Shade Pérez; Dispense: 30 D ays ; #:60 Capsule; Refill: 11; Record Formulary Override Reason: Patient has requested non-preferred drug 13. Tylenol Extra Strength 500 MG Oral Tablet; TAKE 1 TABLET EVERY 6 HOURS NE EDED; Therapy: 16Oct2012 to (Evaluate:15Dec2012) Recorded; For: Generalized Osteoarthritis Of Multiple Sites (715.09); Rx By: Shade Echavarria; Dispense: 5 Days ; #:30 Tablet; Refill: 11; Record 14. Whey Protein Oral Powder; TAKE 1 SCOOP (FOR 26 G) BY MOUTH DAILY; Therapy: 1 06Oct2012 to Recorded; For: Health Maintenance (V70.0); Rx By: Shade Pérez; Dispense: 0 Days ; #: Sufficient GM; Refill: 0; Record Formulary Override Reason: Patient has requested non-preferred drug Allergies 1. Niaspan TBCR Adverse Reaction; Thrombocytopenia; Vitals Vital Signs [Data Includes: Last 1 Day] [id number] 10:48AM BMI Calculated 28.4 BSA Calculated 1.99 Height 5 ft 8 in Weight 187 lb 6 oz Systolic 124 Diastolic 62 Heart Rate 68 Review of Systems A 10 point review of systems was reviewed with patient and was otherwise negat mallika, unless noted as positive above in the history of present illness. Active Problems 1. Anxiety (Symptom) 300.00 2. Benign Polyps Of The Large Intestine 211.3 3. Benign Prostatic Hypertrophy 600.00 4. Carotid Artery Stenosis 433.10 5. Cholelithiasis 574.20 6. Coronary Artery Disease 414.00 s/p 4 vv CABG 09/02/07 7. Depressive Disorder NOS 311 8. Diabetic Peripheral Neuropathy 357.2 9. Diverticulosis Of Intestine 562.10 10. Dyslipidemia 272.4 11. Esophageal Reflux 530.81 12. 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 Hypertension 401.9 14. Male Erectile Disorder 302.72 15. Obstructive Sleep Apnea 327.23 16. Osteoarthrosis 715.90 17. Overweight 278.02 18. Peripheral Vascular Disease 443.9 19. Renal Artery Stenosis 440.1 s/p stent 20. Squamous Cell Carcinoma Of The Skin 173.9 s/p resection 21. Type 2 Diabetes Mellitus With Complication 250.90 22. Vitamin D Deficiency 268.9 Past Medical History 1. History of Obesity 278.00 Surgical History 1. History of Appendectomy 2. History of CABG (CABG) V45.81 4 vv 3. History of Cholecystectomy Laparoscopic 4. History of Dental Surgery 2 infected molars extracted 5. History of Partial Colectomy 6. History of Transcath Intravascular Stent Placement Percutaneous Renal Family History 1. Family history of Coronary Artery Disease Brother and Father 2. Family history of Dementia Mom and Sister 3. Family history of Stroke Syndrome V17.1 Mom 4. Family history of Type 2 Diabetes Mellitus Mom and Grandmother Social History 1. Being A Social Drinker has 2-3 beers a week 2. Exercising Regularly 3. Marital History - Currently 4. Never A Smoker 5. Retired From Work 6. Uses Safety Equipment - Seatbelts Physical Exam General: Patient is a pleasant and cooperative gentleman, who is oth erwise in no apparent distress. Psych: Patient is alert and oriented x3. Neuro: No focal deficits. Monofilament sensation intact in bilateral feet. Head: Normocephalic atraumatic. Eyes: Anicteric sclera. No exophthalmus or lid lag. Throat: Clear oropharynx. Neck: No cervical lymphadenopathy. No thyromegaly. No thyroid nodules. Lungs: Clear to auscultation bilaterally. Heart: Regular rate and rhythm. Abdomen: Positive bowel sounds. Soft. Nontender to palpation. No lipohypertro phy. Extremities: No edema is noted. 1/4 bilateral dorsalis pedis and posterior tibi kary pulses. No cyanosis or delayed capillary refill. Musculoskeletal: 5/5 proximal and distal muscle tone in all extremities. He nolasco s have mild hallux valgus of his bilateral big toes. Skin: No rashes, dry skin, or moist skin noted. No foot sores, calluses, or ulc ers noted. The right foot was normal. The right toes were abnormal and halux valgus of big toe. Capillary refills were normal in the right toes. Pulse of 1 in the posterio r tibialis right foot. Pulse is 1 in the dorsalis pedis of the right foot. The l eft foot was normal. The left toes were abnormal and halux valgus of big toe. Ca pillary refill: normal in the left toes. Pulse is 1 in the posterior tibialis in the left foot. Pulse is 1 in the dorsalis pedis of the left [...] Diabetes Flowsheet [Data Includes: Last 1 Instance] [id number] 06Qnw8905 63Imm0928 76Fqh5275 Systolic 124 Diastolic 62 BMI Calculated 28.4 BSA Calculated 1.99 Height 5 ft 8 in Weight 187 lb 6 oz Hemoglobin A1C Finger Stick 5.9% Hemoglobin A1C 6% 6% Hemoglobin A1c Cholesterol Lipid Prof 116 Triglycerides 68 Hdl 41 41 Ldl Cholesterol 61 Total Cholesterol/Hdl Ratio 2.83 Non- HDL Cholesterol 95 mg/dL HDL Microalbumin Mg/L <0.50 mg/dL Creatinine, Urine Random Quant 100.3 mg/dL Microalbumin/Creatinine Ratio Not Calc ug/mg Leg / Foot Monofilament Wire Test Decreased Sensation Neg Feet Appearance Left Pos Feet Appearance Right Pos Pulse Amplitude Posterior Tibialis Left Pos (1 ) Pulse Amplitude Posterior Tibialis Right Pos (1 ) Pulse Amplitude Dorsalis Pedis Left Pos (1 ) Pulse Amplitude Dorsalis Pedis Right Pos (1 ) Results Glucose Finger Stick [id number] 10:48AM Shade Pérez 2030 pp Test Name Result Flag Reference Glucose Finger Stick 110 A Renal Panel 29Ush3605 01:53PM Shade Pérez Test Name Result Flag Reference Potassium 4.4 MEQ/L 3.5-5.1 Chloride 101 MEQ/L 96-112 Carbon Dioxide 28 MEQ/L 20-30 Glucose 101 mg/dL H 70-100 Anion Gap 15 5-17 Calcium 9.8 mg/dL 8.4-10.2 Creatinine 1.1 mg/dL 0.6-1.3 Blood Urea Nitrogen 30 mg/dL H 7-26 Phosphorus 3.8 mg/dL 2.5-4.5 Albumin 4.6 g/dL 3.5-5.0 Gfrm Aa 78 Chronic Kidney Disease l ess than 60 mL/min/1.73 sq.m^^ Kidney failure less than 15 mL/min/1.73 sq.m^^ Gfrm Non Aa 65 Chronic Kidney Disease less than 60 mL/min/1.73 sq.m^^ Kidney failure less than 15 mL/min/1.73 sq.m^^ Sodium 143 MEQ/L 133-147 Hemoglobin A1C 63Gju6106 12:00AM Shade Pérez [facility] Test Name Result Flag Reference Hemoglobin A1C 6.1 H Lipid Profile 51Ink8486 12:00AM Shade Pérez [facility] Test Name Result Flag Reference Cholesterol Lipid Prof 129 Triglycerides 82 Hdl 43 Ldl Cholesterol 69 Total Cholesterol/Hdl Ratio 3 06/16/2012 ([facility]): Fasting glucose 107*, AST 21, ALT 26 02/09/2012 ([facility]): AST 21, ALT 36 10/13/2011 ([facility]): Fasting glucose 116*, AST 25, ALT 19 Signatures Electronically signed by : Shade Pérez M.D.; Oct 16 2012 12:22PM (Author) * Shade Pérez MD - 10/16/2012 10:40 AM CDT Clinical Summary Patient Name : CARL CHILDERS Appointment Date: 10/16/2012 10:40:00 AM : [id number] : [address] [place] [address] : Assessed Problems Type 2 Diabetes Mellitus With Complication Treatment Plan Medication Changes: OneTouch Ultra Blue In Vitro Strip; TEST ONCE DAILY; DX: 250.9; Days: 100; Qty : 100; Refill: 2 [Renewed] OneTouch Delica Lancets Fine Miscellaneous; TEST ONCE DAILY; DX: 250.9; Days: 100; Qty: 100; Refill: 2 [Renewed] Labs/Procedures: Glucose Finger Stick Vitals Recorded Date/Time: 10/16/2012 10:48:00 AM Systolic: 124 mm Hg; Diastolic: 62 mm Hg; Heart Rate: 68 bpm; BMI Calculated: 28.4; BSA Calculated: 1.99; Height: 5-8 in; Weight: 187-6 lb Current Medications Aspirin EC 325 MG Oral Tablet Delayed Release; ONE TAB BY MOUTH DAILY; Days: 3 0; Qty: 30; Refill: 11 Atorvastatin Calcium 40 MG Oral Tablet; TAKE 1 TABLET DAILY AT BEDTIME.; Days: 30; Qty: 30; Refill: 11 CardioTabs CardioTea; TAKE 1 TABLET (for 662.5 mg) BY MOUTH DAILY; Days: 30; Q ty: 30; Refill: 11 CardioTabs Fairburn 3; TAKE 2 TABLETS (for 1300 mg of EPA/DHA) BY MOUTH DAILY; Da ys: 30; Qty: 60; Refill: 11 Cialis 20 MG Oral Tablet; TAKE 1 TABLET NEEDED; Days: 30; Qty: 10; Refill: 3 Metoprolol Succinate ER 50 MG Oral Tablet Extended Release 24 Hour; TAKE 1 TAB LET DAILY.; Days: 30; Qty: 30; Refill: 11 Omeprazole 20 MG Oral Capsule Delayed Release; TAKE 1 CAPSULE DAILY.; Days: 30 ; Qty: 30; Refill: 11 OneTouch Delica Lancets Fine Miscellaneous; TEST ONCE DAILY; DX: 250.9; Days: 100; Qty: 100; Refill: 2 OneTouch Ultra Blue In Vitro Strip; TEST ONCE DAILY; DX: 250.9; Days: 100; Qty : 100; Refill: 2 Sertraline HCl 50 MG Oral Tablet; TAKE 1 TABLET DAILY.; Days: 30; Qty: 30; Ref ill: 11 Synvisc 8 MG/ML Intra-articular Injectable; USE DIRECTED.; Days: 0; Qty: ; Refill: 0 TH Vitamin D3 1000 UNIT Oral Capsule; TAKE 2 CAPSULES BY MOUTH DAILY; Days: 30 ; Qty: 60; Refill: 11 Tylenol Extra Strength 500 MG Oral Tablet; TAKE 1 TABLET EVERY 6 HOURS NEED ED.; Days: 5; Qty: 30; Refill: 11 Whey Protein Oral Powder; TAKE 1 SCOOP (FOR 26 G) BY MOUTH DAILY; Days: 0; Qty : ; Refill: 0 Allergies Niaspan TBCRReactions: Thrombocytopenia Results Glucose Finger Stick 2030 pp Glucose Finger Stick; Value = 110; Abnormal Document and Provider Details Document: Clinical Summary Provider: Elisa Site: [facility] Site Address : [address] [place] [address] Site documented in this encounter Plan of Treatment Not on filedocumented as of this encounter Procedures Comments Procedure Name Priority Date/Time Associated Diag nosis POCT GLYCOSYLATED Routine 10/16/2012 HEMOGLOBIN (HGB A1C) 10:50 AM CDT GLUCOSE POC Routine 10/16/2012 10:48 AM CDT LIPID PANEL Routine 06/16/2012 12:00 AM CDT HEMOGLOBIN A1C Routine 06/16/2012 12:00 AM CDT documented in this encounter Results * POCT glycosylated hemoglobin (Hb A1C) (10/16/2012 10:50 AM CDT) Hemoglobin A1c 0 (H) 0 OFFICE ENTERED Finger Stick Specimen Performing Organization Address [facility] one Number OFFICE ENTERED * GLUCOSE POC (10/16/2012 10:48 AM CDT) Glucose, 110 (A) 0 OFFICE ENTERED Fingerstick Specimen Performing Organization Address [facility] one Number OFFICE ENTERED * Hemoglobin A1C (06/16/2012 12:00 AM CDT) Hemoglobin A1C 0 (H) 0 OFFICE ENTERED Specimen Performing Organization Address [facility] one Number OFFICE ENTERED * Lipid Panel (06/16/2012 12:00 AM CDT) Cholesterol 116 0 OFFICE ENTERED Triglycerides 68 0 OFFICE ENTERED HDL Cholesterol 41 0 OFFICE ENTERED LDL Cholesterol 61 0 OFFICE ENTERED Cholesterol/HDL 2.83 0 OFFICE ENTERED Ratio Specimen Performing Organization Address [facility] one Number OFFICE ENTERED documented in this encounter Visit Diagnoses Not on filedocumented in this encounter
--- OUTSIDE RECORDS SUMMARY | 2019-09-14 20:40 | XMS REPORT | Encounter Summary ---
Author Author [facility] Organization [facility] Address Unknown Phone Unavailable Care Team Providers Care Real Estate Asset Manager Name Role Phone Benjie Montano PCP Encounter Details Care Team Description Date Type Department Shade Pérez MD [address] [facility] [address] [place] [address] [id number] 10/16/2012 Allscripts Note [facility] [place] [address] [facility] [address] [place] [id number] Social History Date Tobacco Use Types Packs/Day Years Used Never Assessed Sex Assigned at Date Recorded Not on file Industry Job Start Date Occupation Not on file Not on file Not on file Travel End Travel History Travel Start No recent travel history available. documented as of this encounter Miscellaneous Notes * Miscellaneous - Shade Pérez MD - 10/16/2012 10:40 AM CDT Verified Results Collected/Examined: Oct 16, 2012 11:47AM Test Result Flag Acceptable Comprehensive Metabolic Sodium 141 MEQ/L 133-147 Potassium 4.4 MEQ/L [...] failure less than 15 mL/min/1.73 sq.m^^ Glucose 99 mg/dL 70-100 Microalbumin Urine Hank Microalbumin Mg/L <0.50 mg/dL Creatinine, Urine Random Quant 57.2 mg/dL Microalbumin/Creatinine Ratio Not Calc ug/mg 0.00-16.00 Microalbumin is too low to be measured. Calculation cannot be performed^^ Discussion/Summary Carl, Your kidney function, liver function, electrolytes and urine kindey test are all normal. Please continue your current medications. If you have questions, please contact the office at [phone]. -Dr. Pérez -Padma, KIMANI * Miscellaneous - Shade Pérez MD - 10/16/2012 10:40 AM CDT Verified Results Collected/Examined: Oct 16, 2012 11:47AM Test Result Flag Acceptable Comprehensive Metabolic [Oct 16, 2012 7:03PM Shade Pérez] Serum glucose is at goal. Renal function, electrolytes, and LFTs are normal. Uri ne microalbumin is undetectable, so no evidence for nephropathy. Continue curren t therapy/recommendations made at appointment. Sodium 141 MEQ/L 133-147 Potassium 4.4 MEQ/L [...] failure less than 15 mL/min/1.73 sq.m^^ Glucose [Oct 16, 2012 7:03PM Shade Pérez] Serum glucose is at goal. Renal function, electrolytes, and LFTs are normal. Uri ne microalbumin is undetectable, so no evidence for nephropathy. Continue curren t therapy/recommendations made at appointment. Glucose 99 mg/dL 70-100 Microalbumin Urine Hank [Oct 16, 2012 7:03PM Shade Pérez] Serum glucose is at goal. Renal function, electrolytes, and LFTs are normal. Uri ne microalbumin is undetectable, so no evidence for nephropathy. Continue curren t therapy/recommendations made at appointment. Microalbumin Mg/L <0.50 mg/dL Creatinine, Urine Random Quant 57.2 mg/dL Microalbumin/Creatinine Ratio Not Calc ug/mg 0.00-16.00 Microalbumin is too low to be measured. Calculation cannot be performed^^ Discussion/Summary Carl, Your kidney function, liver function, electrolytes and urine kindey test are all normal. Please continue your current medications. If you have questions, please contact the office at [phone]. -Dr. Elisa Ivan, RN documented in this encounter Plan of Treatment Not on filedocumented as of this encounter Visit Diagnoses Not on filedocumented in this encounter
--- OUTSIDE RECORDS SUMMARY | 2019-09-14 20:40 | XMS REPORT | Encounter Summary ---
Author Author [facility] Organization [facility] Address Unknown Phone Unavailable Care Team Providers Care Inspector Printed Circuit Boards Name Role Phone Charmaine Black PCP Encounter Details Care Team Description Date Type Department Stephania Whitaker RN PIECE GOODS CLERK- [address] [place] [address] 06/15/2012 [facility] C Visit Social History [...]
--- OUTSIDE RECORDS SUMMARY | 2019-09-14 20:40 | XMS REPORT | Encounter Summary ---
Author Author [facility] Organization [facility] Address Unknown Phone Unavailable Care Team Providers Care Contract Negotiation Manager Name Role Phone Charmaine Black PCP Encounter Details Care Team Description Date Type Department Olman Holloway MD [address] [facility] [address] [place] [address] [phone] 11/07/2012 [facility] HISTORIC CLINI C Visit [...]
--- OUTSIDE RECORDS SUMMARY | 2019-09-14 20:40 | XMS REPORT | Encounter Summary ---
Author Author [facility] Organization [facility] Address Unknown Phone Unavailable Care Team Providers Care Analysis Mgr Name Role Phone Benjie Montano PCP Encounter Details Care Team Description Date Type Department Desiree Herrera MD [address] [facility] [address] [place] [address] [phone] 04/19/2012 [facility] Note [facility] [place] [address] [facility] [address] [place] [id number] Social History Date Tobacco Use Types Packs/Day Years Used Never Assessed Sex Assigned at Date Recorded Not on file Industry Job Start Date Occupation Not on file Not on file Not on file Travel End Travel History Travel Start No recent travel history available. documented as of this encounter Miscellaneous Notes * Miscellaneous - Desiree Herrera MD - 04/19/2012 2:00 PM DYNAMITE RECLAIMER Verified Results Collected/Examined: Apr 18, 2012 1:53PM Test Result Flag Acceptable Renal Panel Potassium 4.4 MEQ/L 3.5-5.1 Chloride 101 MEQ/L [...] 15 mL/min/1.73 sq.m^^ Sodium 143 MEQ/L 133-147 Discussion/Summary Carl, Your glucose level is great. Your kidney function is normal. Please con tinue with the recommendations made at your appointment and call if you have any questions. [phone] KIMANI Cooper MITE RECLAIMER * Miscellaneous - Desiree Herrera MD - 04/19/2012 2:00 PM DYNAMITE RECLAIMER Verified Results Collected/Examined: Apr 18, 2012 1:53PM Test Result Flag Acceptable Renal Panel [Apr 19, 2012 2:00PM DESIREE HERERRA] Glucose level is at goal. Renal function appears normal, except for mildly eleva beto BUN. Electrolytes are normal. Continue current therapy/recommendations made at appointment. Potassium 4.4 MEQ/L 3.5-5.1 Chloride 101 MEQ/L [...] 15 mL/min/1.73 sq.m^^ Sodium 143 MEQ/L 133-147 Discussion/Summary Carl, Your glucose level is great. Your kidney function is normal. Please con tinue with the recommendations made at your appointment and call if you have any questions. [phone] KIMANI Cooper MITE RECLAIMER documented in this encounter Plan of Treatment Not on filedocumented as of this encounter Visit Diagnoses Not on filedocumented in this encounter
--- OUTSIDE RECORDS SUMMARY | 2019-09-14 20:40 | XMS REPORT | Encounter Summary ---
Author Author [facility] Organization [facility] Address Unknown Phone Unavailable Care Team Providers Care Skin Care Therapist Name Role Phone PCP Unavailable Encounter Details Care Team Description Date Type Department Shade [place] [address] [place] [address] [phone] 05/05/2012 [facility] - Encounter [address] [place] [address] 06/07/2012 [place] [address] Social History Date Tobacco Use Types Packs/Day [...] 24 hr capsule by tablet mouth daily 10/11/2007 10/09/2014 metoprolol succinate Take one 0 0 (TOPROL XL) 25 MG 24 hr tablet by tablet mouth in the AM. 11/08/2006 10/09/2014 metoprolol succinate Take one 0 [...]
--- OUTSIDE RECORDS SUMMARY | 2019-09-14 20:40 | XMS REPORT | Encounter Summary ---
Author Author [facility] Organization [facility] Address Unknown Phone Unavailable Care Team Providers Care Meat Stuffer Name Role Phone Charmaine Black PCP Encounter Details Care Team Description Date Type Department Stephania Whitaker RN CAGE/VAULT SUPERVISOR- [address] [place] [address] 06/16/2012 [facility] C [...] Reading Time Taken Comments Vital Sign 130/60 06/16/2012 10:48 AM CDT Blood Pressure 60 06/16/2012 10:48 AM CDT Pulse - - Temperature - - Respiratory Rate - - Oxygen Saturation - - Inhaled Oxygen Concentration 83.9 kg (185 lb) 06/16/2012 10:48 AM CDT overweight Weight 170.2 cm (5' 7") 06/16/2012 10:48 AM CDT Height 28.98 06/16/2012 10:48 AM CDT Body Mass Index documented in this encounter Progress Notes * Stephania Whitaker RN FNP-MANFRED - 06/16/2012 10:30 AM CDT [employer] [facility] [address] [place] [id number] June 16, 2012 CHARMAINE BLACK MD [address] [facility] [place] [address] [place] [address] RE: CARL CHILDERS : 1935 CHART #: [id number] Visit Provider: Gita Whtiaker RN, BC, CAGE/VAULT SUPERVISOR-C Visit Location: [facility] I had the pleasure of seeing CARL CHILDERS in the [facility] for cardi ovascular risk reduction. He is 77 years of age and presents with the following chief complaints: coronary artery disease, dyslipidemia, and hypertension. Risk factors include: Male greater than 45 years old HDL less than 40 Diagnosed with Type 2 (Adult Onset) diabetes hypertension Dyslipidemia Family hx (CAD < 60 Yo) Formerly smoked 2.00 pack(s) per day for 25.00 years(50.00 pack years) quit in 8. Known history of coronary artery disease Laboratory Results from today's visit are as follows: Date Collected: 06/16/2012 Fasting: Fasting Total Cholesterol: 116 HDL: 41 LDL: 61 Triglycerides: 68 Ratio: 2.83 Glucose 107 HbA1c 6.0 ALT 21 AST 26 Final Medications: Toprol XL 50 Mg take 1 tablet (50MG) by oral route every day Atorvastatin Calcium 40 Mg take 1 tablet (40MG) by oral route every day Prilosec OTC 20 Mg Take one tablet by mouth daily CardioTabs CardioWhey Mix Whey Protein 25 Gram-140 Kcal/34 Gram 1 scoop of whey protein daily Cardio Tea two capsules by mouth daily with food Tylenol Extra Strength 500 Mg take tablet (500MG) by oral route every 6 hours as needed Vitamin D 1,000 Unit Take 2 tablets by oral route daily Cialis 2.5 Mg take 1 tablet (2.5MG) by oral route as needed Aspirin 325 Mg Take one tablet by mouth daily [place]-3 Fatty Acids Take two capsules by mouth twice per day Zoloft 50 Mg Take one tablet by mouth daily Allergies: Allergy Comment Reaction Niacin Niaspan Extended-release Reduced Platelets Past Medical History: Anxiety Cholelithiasis Obesity Osteoporosis Perforated diverticulum Osteoarthritis Osteopenia Erectile Dysfunction Diverticulosis Colon polyps diabetic peripheral neuropathy BPH Squamous cell CA 2002 Sleep Apnea on CPAP 2003 Past Surgical History: Colon resection 1998 Appendectomy 1998 Squamous cell Cancer Removal 2001 Renal Artery Stent 2006 Quadruple bypass surgery 2007 Removal of 2 infected molars 2010 Family History: Brother Diagnosed with HTN Mother Diagnosed with Diabetes, dementia, Cause of was CVA at age 82. Brother Cause of was CRF at age 67. Brother Cause of was CABG at age 71. Sister Cause of was CA at age 86. Father Diagnosed with Heart Disease, Cause of was MS at age 62. Social History: Marital Status: Children: 3 Occupation: Retired Advance Directives: There are no advance directives. The patient has a living wi ll that was executed on 03/07/2007 Diet: Low fat/chol, Low salt Exercise: Regular . Cardio Rehab 1 hr x 3 day/wk, Circuit Records Management Associate 20-30 min 3 x/wk, Stationary Bike 30 min daily, Elliptical 15-30 min 3 day/wk, Bicycle 2-3 d ay/wk weather permitting Tobacco: Former user of cigarettes 2.00 pack(s) per day for 25.00 year(s). Joe t in 1977 Alcohol: Currently drinks 5 oz. of wine daily Caffeine: Caffeine use: 3 cups of coffee ROS: 12-point review of systems is negative with the following exceptions: Pulmonary: Sleep apnea Cardiovascular: Lightheadedness Physical Exam: Vital Signs The patient is [...] aphasia is apparent by exam. Exercise: Circuit canine service instructor trainer for 20 minutes three times per week. Cardiac rehabilitation three times per week Current Diet: Breakfast: Typically a breakfast shake with a cup of almond milk, half cup of blueberries, one scoop of CardioWhey, half of a sliced banana, a dash of cinnamo n, a cup of low-sodium tomato juice, and he also has two cups of coffee. Lunch: Recently he had a cup of homemade three-stevenson soup with no crackers or br ead, and he had an apple with it. When he snacks, it is on low-fat cheese. Dinner: A cup of homemade chicken noodle soup without crackers or bread, with half a cup of 2% cottage cheese with half cup of blueberries and canned pears. He also had two-thirds cup of raw vegetable salad and had an apple, and then he had a sugar-free Popsicle. Summary and Recommendations: 1. Known history of coronary artery disease, currently without anginal symptoms. Last saw our deputy of counter intelligence, Dr. Osmin Holloway, in 11/2011. Mr. Childers will continue with annual appointments with our deputy of counter intelligence or sooner if deemed necessary for complete exam and further recommendations. 2. Dyslipidemia, optimally controlled. 3. Hypertension. Presents today in prehypertension stage. His blood pressures at cardiac rehab range in the 120s to mid 130s over 70s. He will have an occasion al systolic blood pressure in the 150s. His heart rate range is 78 to 96. I have recommended that he increase his Toprol XL from 25 mg to 50 mg daily. This should provide a little more blood pressure lowering as well as lowering of his resting heart rate. 4. His 25 hydroxy vitamin D blood test in 02/2012 was optimal at 40. He will co ntinue with his same vitamin D supplement. 5. Type 2 diabetes mellitus. His Hgb A1c is 6% and demonstrates excellent contr ol of his blood sugars. 6. BMI of 29 with waist circumference of [address] Childers in the overweight category. This remains his biggest risk factor right now is his elyse st circumference. He has brought with him three days of food that he has eaten over the past three days, and I will give this to our block feeder, Ms. Blanca Maldonado , to call Mr. Childers to make dietary recommendations. His diet is pretty healthy. The only thing perhaps is maybe we need to work on some portion control or the amount of food he is eating, but again we will have the block feeder, Ms. Blanca bunch, review this with Mr. Childers. Next Preventive Visit: In 4 Months We will apprise you of the above test results and further recommendations as the y are available. Thank you for allowing us to participate in the care of this nice patient. Nohemi tao do not hesitate to call should you have questions or concerns. Sincerely, Gita Whitaker RN, BC, CAGE/VAULT SUPERVISOR-C [facility]/tls Supervising physician available for consultation is: Richard Carbone M.D. cc: CARLFrancisco CHILDERS [address] [place] [address] Shade Pérez MD [address] [facility] [address] [place] [address] F: 06/20/2012 documented in this encounter Plan of Treatment Not on filedocumented as of this encounter Visit Diagnoses Not on filedocumented in this encounter
--- OUTSIDE RECORDS SUMMARY | 2019-09-14 20:40 | XMS REPORT | Encounter Summary ---
Author Author [facility] Organization [facility] Address Unknown Phone Unavailable Care Team Providers Care Wastewater Plant Operator Name Role Phone Charmaine Black PCP Encounter Details Care Team Description Date Type Department Richard Freeman MD [address] [facility] [address] [place] [address] [phone] 11/01/2012 [facility] [...]
--- OUTSIDE RECORDS SUMMARY | 2019-09-14 20:40 | XMS REPORT | Encounter Summary ---
Author Author [facility] Organization [facility] Address Unknown Phone Unavailable Care Team Providers Care Drafter Geological Name Role Phone Charmaine Black PCP Encounter Details Care Team Description Date Type Department Desiree Herrera MD [address] [address] [phone] 04/18/2012 Hist-Appointmen [facility] [...] Signs Reading Time Taken Comments Vital Sign 120/74 04/18/2012 12:57 PM OYSTER FARMER Blood Pressure 74 04/18/2012 12:57 PM OYSTER FARMER Pulse - - Temperature - - Respiratory Rate - - Oxygen Saturation - - Inhaled Oxygen Concentration 84.9 kg (187 lb 2.1 oz) 04/18/2012 12:57 PM OYSTER FARMER Weight 172.7 cm (5' 8") 04/18/2012 12:57 PM OYSTER FARMER Height 28.45 04/18/2012 12:57 PM OYSTER FARMER Body Mass Index documented in this encounter Progress Notes * Desiree Herrera MD - 04/18/2012 1:00 PM OYSTER FARMER History of Present Illness Diabetes-[facility]: The patient's visit is for a routine clinic follow-up of type 2 diabetes mellitu s (Dx'd 2009). The patient's last clinic visit was 6 month(s) ago. No changes in management wer e made at the last visit. Symptoms: no polydipsia, no polyuria, no increased appetite, no fatigue, no blur red vision and no episodes of hypoglycemia The patient presents with complaints of no weight loss. There is no known event that preceded symptom onset. Pertinent medical history: hypertension, coronary artery disease, peripheral va scular disease, carotid occlusive disease, hyperlipidemia and neuropathy, but no nephropathy and no retinopathy. Risk factors: no obesity, no inactivity, no pr olonged corticosteroid use and no use of psychotropic medications. Family histor y: diabetes mellitus type II and obesity, but no diabetes mellitus type I and n o premature coronary artery disease. The patient's meter is/are downloaded and r eviewed. Please see scanned meter readings for annotations. Associated symptoms: appetite not increased, no anorexia, no nausea, no abdomina l pain, no vomiting, no abnormal healing and no confusion. The patient is due fo r a hemoglobin A1C and a lipid panel. Current treatment includes: aspirin (325 mg daily) and atorvastatin 40 mg daily; Cardiotab [place] 3: 2 capsules for 3200 mg daily. Current treatment also includes diabetic teaching (completed 05/07 classed in January 2010 at [facility]; annual f/u on 05/14/2011), glucose monitoring (One Touch Ultra), regular exercise (30 min stationary bike daily + weights 3 days/wk and cardiac rehab x 3 days/week) and diabetic diet (eats 3 meals/day with occasional afternoon snack). Patient is counting carbs and reports eating 45 carbs per meal. By report, there is good c ompliance with treatment, good tolerance of treatment and good symptom control. Pertinent medical history: hypertension, coronary artery disease, peripheral va scular disease, carotid occlusive disease, cataract(s), hyperlipidemia and neuro vanessa, but no stroke, no glaucoma, no nephropathy and no retinopathy. Risk facto rs: no obesity, no inactivity, no prolonged corticosteroid use and no use of ps ychotropic medications. Family history: diabetes mellitus type II and obesity, but no diabetes mellitus type I and no premature coronary artery disease. Past e valuation has included hemoglobin A1c, metabolic panel, fasting lipid profile, u rinalysis (last Ur MAB undetectable on 11/02/2011) and ophthalmology examination (Last exam was 01/11/[address] Blake Wen at [facility], in [place]). Past treatment has included diabetic teaching, glucose monitoring, as pirin, diet modification, exercise program and atorvastatin, fish oil. He was pr eviously evaluated by me 6 month(s) ago. Assessment 1. Type 2 Diabetes Mellitus With Complication 250.90 2. Diabetic Peripheral Neuropathy 357.2 3. Dyslipidemia 272.4 4. Hypertension 401.9 Plan 1. Glucose Done: 18Apr2012 01:00PM Ordered; For: Type 2 Diabetes Mellitus With Complication (250.90); Ordered By: DESIREE JOHNSON Performed: In Office Due: 28Apr2012; Last Updated By: ZAC GIBBS 2. Hemoglobin A1C Requested for: Approx 03Jul2012 Ordered; For: Type 2 Diabetes Mellitus With Complication (250.90); Ordered By: DESIREE JOHNSON Perform: Outside Lab Order Comments: Please fax results to Dr. Rhoades [phone] 1. Diabetes mellitus 2. Complicated by peripheral neuropathy, which is only intermittently and mildly symptomatic. Controlled as evidenced by his A1c of 6. 1% on 02/09/2012. Review of his glucometer readings indicate reasonable control, although he does have fairly persistent fasting glucose readings just slightly above goal. For now, I recommend he continue current therapeutic lifestyle gibbons ges, including diet and exercise, for his diabetes management. He can continue monitoring his fingerstick glucose once daily, alternating between pre-breakfast , pre-lunch, pre-supper, and bedtime. His urine MAB:Cr ratio and annual eye bess luation are both up to date. I will check his renal function and electrolytes to day. I will have his PCP update his A1c at their followup appointment on 013, and fax results to me. I will see him back in clinic for followup in [address] [place] [address]. 2. Dyslipidemia. Lipids were well controlled on 02/09/2012. LFTs were normal o n the same day. I recommend she continue atorvastatin 40 mg daily and Cardiotab omega 3: 2 tablets daily. 3. Hypertension. Blood pressure is at goal. I recommend he continue his curre nt therapy. CC: Charmaine Black M.D. Olman Holloway M.D. Current Meds 1. Aspirin EC 325 MG Oral Tablet Delayed Release; ONE TAB BY MOUTH DAILY; Therap y: 25Nov2009 to (Evaluate:13Apr2013) Recorded; For: Coronary Artery Disease (414.00); Rx By: DESIREE HERRERA; Dispense: 30 Days ; #:30 Tablet Delayed Release; Refill: 11; Record Formulary Override Reason: No Formulary Equivalent Exists 2. Atorvastatin Calcium 40 MG Oral Tablet; Therapy: 09Jan2010 to (Evaluate:2011) Recorded; For: Dyslipidemia (272.4); Dispense: 0 Days ; #: Sufficient Tablet; Re fill: 0; RICHARD; Record; Last Updated By: DESIREE HERRERA 3. CardioTabs CardioTea; TAKE 1 DAILY; Therapy: 18Apr2012 to Recorded; For: Health Maintenance (V70.0); Rx By: DESIREE HERRERA; Dispense: 0 Days ; #:30; Refill: 11; Record 4. CardioTabs [place] 3; TAKE 2 TABLETS BY MOUTH DAILY; Therapy: 25Nov2009 to (Evaluate:13Apr2013) Recorded; For: Dyslipidemia (272.4); Rx By: DESIREE HERRERA; Dispense: 30 Days ; #: 60; Refill: 11; Record 5. Metoprolol Succinate ER 25 MG Oral Tablet Extended Release 24 Hour; TAKE 1 TA BLET ONCE DAILY; Therapy: 14Oct2009 to (Evaluate:13Nov2009) Recorded; For: Hypertension (401.9); Dispense: 30 Days ; #:30 TB24; Refill: 0; D AW; Record; Last Updated By: DESIREE HERRERA 6. Omeprazole 20 MG Oral Capsule Delayed Release; TAKE 1 CAPSULE DAILY; Therapy: 14Oct2009 to (Evaluate:13Apr2013) Recorded; For: Esophageal Reflux (530.81); Rx By: DESIREE HERRERA; Dispense: 30 Day s ; #:30 Capsule Delayed Release; Refill: 11; Record 7. OneTouch FinePoint Lancets Miscellaneous; TEST TWICE DAILY; Therapy: 0 to (Evaluate:[id number]) Requested for: 84Kiz5047; Last Rx:[id number] Ordered; For: Type 2 Diabetes Mellitus With Complication (250.90); Rx By: DESIREE HERRERA; Dispense: 50 Days ; #:100 EA; Refill: 11; Verified Transmission to [facility] 8. OneTouch Ultra Blue In Vitro Strip; TEST TWICE DAILY; Therapy: 74Gxi0499 to (Evaluate:04Hwg4743) Requested for: 97Vmh2908; Last Rx:[id number] Ordered; For: Type 2 Diabetes Mellitus With Complication (250.90); Rx By: DESIREE HERRERA; Dispense: 50 Days ; #:100 EA; Refill: 11; Verified Transmission to [facility] 9. 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 Vitamin D3 1000 UNIT Oral Capsule; TAKE 2 CAPSULES BY MOUTH DAILY; Therap y: 14Oct2009 to (Evaluate:[id number]) Recorded; For: Vitamin D Deficiency (268.9); Rx By: DESIREE HERRERA; Dispense: 30 D ays ; #:60 Capsule; Refill: 11; Record Formulary Override Reason: Patient has requested non-preferred drug Allergies 1. Niaspan TBCR Adverse Reaction; Thrombocytopenia; Vitals Vital Signs [Data Includes: Last 1 Day] [id number] 12:57PM BMI Calculated 28.36 BSA Calculated 1.99 Height 5 ft 8 in Weight 187 lb 2 oz Systolic 120 Diastolic 74 Heart Rate 74 Review of Systems A 10 point review [...] 8. Diabetic Peripheral Neuropathy 357.2 9. Diverticulosis 562.10 10. Dyslipidemia 272.4 11. Esophageal Reflux 530.81 12. 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 Hypertension 401.9 14. Male Erectile Disorder 302.72 15. Obesity 278.00 16. Obstructive Sleep Apnea 327.23 17. Osteoarthrosis 715.90 18. Peripheral Vascular Disease 443.9 19. Renal Artery Stenosis 440.1 s/p stent 20. Squamous Cell Carcinoma Of The Skin 173.9 s/p resection 21. Type 2 Diabetes Mellitus With Complication 250.90 22. Vitamin D Deficiency 268.9 Surgical History 1. History of Appendectomy 2. 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 History of Cholecystectomy Laparoscopic December 2011 4. History of Dental Surgery 5. History of Partial Colectomy 6. History [...] edema is noted. 1/4 bilateral dorsalis pedis pulses. No cyanos is or delayed capillary refill. Musculoskeletal: 5/5 proximal and distal muscle tone in all extremities. Skin: No rashes, dry skin, or moist skin noted. No foot sores, calluses, or ulc ers noted. The right foot was normal. The right toes were normal. Pulse is 1 in the dorsali s pedis of the right foot. The left foot was normal. The left toes were normal. Pulse is 1 in the dorsalis pedis [...] Printed in Appendix #1 below. Results Glucose [id number] 01:00PM DESIREE HERRERA 1999 pp Test Name Result Flag Reference Glucose 126 A CMP-Comprehensive Metabolic Panel [id number] 12:04PM DESIREE HERRERA Test Name Result Flag Reference Albumin 4.4 g/dL 3.5-5.0 Aspartate Aminotransferase 29 IU/L 15-46 Alanine Aminotransferase 33 IU/L 13-69 Bilirubin Total 0.9 mg/dL 0.2-1.3 Protein Total Serum 7.0 g/dL 6.0-8.2 Calcium 9.6 mg/dL 8.4-10.2 Creatinine 1.0 mg/dL 0.6-1.3 Glucose 102 mg/dL H 70-100 Alkaline Phosphatase 60 IU/L 42-128 Sodium 141 MEQ/L 133-147 Potassium 4.4 MEQ/L 3.5-5.1 Chloride 101 MEQ/L 96-112 Anion Gap 13 3-15 Blood Urea Nitrogen 26 mg/dL 7-26 Carbon Dioxide 27 MEQ/L 22-30 Gfrm Aa 88 Chronic Kidney Disease less than 60 mL/min/1.73 sq.m^^ Kidney failure less than 15 mL/min/1.73 sq.m^^ Gfrm Non Aa 72 Chronic Kidney Disease less than 60 mL/min/1.73 sq.m^^ Kidney failure less than 15 mL/min/1.73 sq.m^^ 02/09/2012 (. [facility]): AST 21, ALT 36 10/13/2011 ([facility]): AST 25, ALT 19, serum glucos e 116 Signatures Electronically signed by : DESIREE HERRERA M.D.; Apr 18 2012 2:06PM (Author) Appendix #1 Diabetes Flowsheet [Data Includes: Last 1 Instance] Patient: CARL CHILDERS; : 1935; [id number] Systolic 120 Diastolic 74 BMI Calculated 28.36 BSA Calculated 1.99 Height 5 ft 8 in Weight 187 lb 2 oz Hemoglobin A1C Finger Stick 5.9 Hemoglobin A1C 6.1 6.1 Hemoglobin A1c Cholesterol Lipid Prof 129 Triglycerides 82 Hdl 43 43 Ldl Cholesterol 69 Total Cholesterol/Hdl Ratio 3 Non- HDL Cholesterol 95 mg/dL HDL Microalbumin Mg/L <0.50 mg/dL Creatinine, Urine Random Quant 100.3 mg/dL Microalbumin/Creatinine Ratio Not Calc ug/mg Leg / Foot Monofilament Wire Test Decreased Sensation Neg Feet Appearance Left Pos Feet Appearance Right Pos Pulse Amplitude Dorsalis Pedis Left Pos (1 ) Pulse Amplitude Dorsalis Pedis Right Pos (1 ) ER FARMER * Desiree Herrera MD - 04/18/2012 1:00 PM OYSTER FARMER Clinical Summary Patient Name : ACRL CHILDERS Appointment Date: 04/18/2012 1:00:00 PM : [id number] : [address] 1935 [place] [address] : Assessed Problems Type 2 Diabetes Mellitus With Complication Treatment Plan Labs/Procedures: Hemoglobin A1C Lipid Profile Glucose Hemoglobin A1C Vitals Recorded Date/Time: 04/18/2012 12:57:00 PM Systolic: 120 mm Hg; Diastolic: 74 mm Hg; Heart Rate: 74 bpm; BMI Calculated: 28.36; BSA Calculated: 1.99; Height: 5-8 in; Weight: 187-2 lb Current Medications Aspirin EC 325 MG Oral Tablet Delayed Release; ONE TAB BY MOUTH DAILY; Days: 3 0; Qty: 30; Refill: 11 Atorvastatin Calcium 40 MG Oral Tablet; ; Days: 0; Qty: ; Refill: 0 CardioTabs CardioTea; TAKE 1 DAILY; Days: 0; Qty: 30; Refill: 11 CardioTabs [place] 3; TAKE 2 TABLETS BY MOUTH DAILY; Days: 30; Qty: 60; Refill: 11 Metoprolol Succinate ER 25 MG Oral Tablet Extended Release 24 Hour; TAKE 1 TAB LET ONCE DAILY.; Days: 30; Qty: 30; Refill: 0 Omeprazole 20 MG Oral Capsule Delayed Release; TAKE 1 CAPSULE DAILY.; Days: 30 ; Qty: 30; Refill: 11 OneTouch FinePoint Lancets Miscellaneous; TEST TWICE DAILY.; Days: 50; Qty: 10 0; Refill: 11 OneTouch Ultra Blue In Vitro Strip; TEST TWICE DAILY.; Days: 50; Qty: 100; Ref ill: 11 Sertraline HCl 50 MG Oral Tablet; ; Days: 0; Qty: ; Refill: 0 TH Vitamin D3 1000 UNIT Oral Capsule; TAKE 2 CAPSULES BY MOUTH DAILY; Days: 30 ; Qty: 60; Refill: 11 Allergies Niaspan TBCRReactions: Thrombocytopenia Results Glucose 2000 pp Glucose; Value = 126; Abnormal Document and Provider Details Document: Clinical Summary Provider: JAVIER Site: [facility] Site Address : [address] [place] [address] Site ER FARMER documented in this encounter Plan of Treatment Not on filedocumented as of this encounter Procedures Comments Procedure Name Priority Date/Time Associated Diag nosis GLUCOSE Routine 04/18/2012 1:00 PM OYSTER FARMER LIPID PANEL Routine 02/09/2012 12:00 AM OYSTER FARMER HEMOGLOBIN A1C Routine 02/09/2012 12:00 AM OYSTER FARMER documented in this encounter Results * Glucose (04/18/2012 1:00 PM OYSTER FARMER) Glucose 126 (A) 0 OFFICE ENTERED Specimen Performing Organization Address [facility] one Number OFFICE ENTERED * Hemoglobin A1C (02/09/2012 12:00 AM OYSTER FARMER) Hemoglobin A1C 6.1 (H) 0 OFFICE ENTERED Specimen Performing Organization Address [facility] one Number OFFICE ENTERED * Lipid Panel (02/09/2012 12:00 AM OYSTER FARMER) Cholesterol 129 0 OFFICE ENTERED Triglycerides 82 0 OFFICE ENTERED HDL Cholesterol 43 0 OFFICE ENTERED LDL Cholesterol 69 0 OFFICE ENTERED Cholesterol/HDL 3 0 OFFICE ENTERED Ratio Specimen Performing Organization Address [facility]/Zipcode Ph one Number OFFICE ENTERED documented in this encounter Visit Diagnoses Not on filedocumented in this encounter
--- OUTSIDE RECORDS SUMMARY | 2019-09-14 20:41 | XMS REPORT | Encounter Summary ---
Author Author [facility] Organization [facility] Address Unknown Phone Unavailable Care Team Providers Care Singer And Unloader Name Role Phone Charmaine Black PCP Encounter Details Care Team Description Date Type Department Stephania Whitaker RN CROWNING INSPECTOR- [address] [place] [address] 06/25/2011 [facility] - Hist [facility] C Visit Social History [...]
--- OUTSIDE RECORDS SUMMARY | 2019-09-14 20:41 | XMS REPORT | Encounter Summary ---
Author Author [facility] Organization [facility] Address Unknown Phone Unavailable Care Team Providers Care Production Reproduction Manager Name Role Phone Hailey Blackhleen PCP Encounter Details Care Team Description Date Type Department Shade Pérez MD [address] [id number] 10/13/2011 Hist-Other [facility] [place] [address] [address] Social History Date Tobacco Use Types Packs/Day [...] Date/Time Associated Diag nosis LIPID PANEL Routine 10/13/2011 12:00 AM CDT HEMOGLOBIN A1C Routine 10/13/2011 12:00 AM CDT documented in this encounter Results * Hemoglobin A1C (10/13/2011 12:00 AM CDT) Hemoglobin A1C 5.8 0 OFFICE ENTERED Specimen Performing Organization Address [facility] Number OFF[facility] EN[facility] * Lipid Panel (10/13/2011 12:00 AM CDT) Cholesterol 127 0 OFFICE ENTERED Triglycerides 118 0 OFFICE ENTERED HDL Cholesterol 33 (L) 0 OFFICE ENTERED LDL Cholesterol 70 0 OFFICE ENTERED Specimen Performing Organization Address City/[facility]/[place] [facility] one Number OFFICE ENTERED documented in this encounter Visit Diagnoses Not on filedocumented in this encounter
--- OUTSIDE RECORDS SUMMARY | 2019-09-14 20:41 | XMS REPORT | Encounter Summary ---
Author Author [facility] Organization [facility] Address Unknown Phone Unavailable Care Team Providers Care African History Professor Name Role Phone Charmaine Black PCP Encounter Details Care Team Description Date Type Department Iza Montoya RN ANP no forwarding address 06/15/2011 [facility] - Hist [facility] Visit Social [...]
--- OUTSIDE RECORDS SUMMARY | 2019-09-14 20:41 | XMS REPORT | Encounter Summary ---
Author Author [facility] Organization [facility] Address Unknown Phone Unavailable Care Team Providers Care Crushing Machine Operator Name Role Phone Charmaine Black PCP Encounter Details Care Team Description Date Type Department Desiree Herrera MD [address] [address] [phone] 11/02/2011 Hist-Appointmen [facility] CL [...] Signs Reading Time Taken Comments Vital Sign 116/76 11/02/2011 11:15 AM CDT Blood Pressure 60 11/02/2011 11:15 AM CDT Pulse - - Temperature - - Respiratory Rate - - Oxygen Saturation - - Inhaled Oxygen Concentration 83.5 kg (184 lb 2.1 oz) 11/02/2011 11:15 AM CDT Weight 172.7 cm (5' 8") 11/02/2011 11:15 AM CDT Height 28 11/02/2011 11:15 AM CDT Body Mass Index documented in this encounter Progress Notes * Desiree Herrera MD - 11/02/2011 11:20 AM CDT History of Present Illness Diabetes-[facility]: The patient's [...] symptom onset. Patient reports doing home measurements 1-2 time(s) per day. Post-prandial blood sugars are. Lowest post-prandial blood sugar reading was 82. Highest post-prand ial blood sugar reading was 102. Fasting blood sugars are generally. Lowest fast ing blood sugar reading was 104. Highest fasting blood sugar reading was 123. Pe rtinent medical history: hypertension, coronary artery disease, peripheral vasc ular disease, hyperlipidemia and neuropathy (occasional tingling in bilateral fe et), but no cataract(s), no glaucoma, no steroid therapy, no nephropathy and no retinopathy. Risk factors: no obesity, no inactivity, no prolonged corticostero id use and no use of psychotropic medications. Family history: diabetes mellitu s type II, but no diabetes mellitus type I, no obesity and no premature coronary artery disease. (log for the last 4 weeks reviewed with patient) Associated symptoms: appetite not increased, no anorexia, no nausea, no abdomina l pain, no vomiting, no abnormal healing and no confusion. The patient is due fo r a hemoglobin A1C and a lipid panel. Current treatment includes: aspirin (325 m g daily) and atorvastatin 40 mg daily; FO 3000 mg daily. Current treatment also includes diabetic teaching (completed 3/3 classed in January 2010 at [facility] ), glucose monitoring (One Touch Ultra), regular exercise (30 min stationary bik e daily + weights 3 days/wk) and diabetic diet (eats 3 meals/day with occasional afternoon snack). Patient is counting carbs and reports eating 45 carbs per rick l. By report, there is good compliance with treatment, good tolerance of treatme nt and good symptom control. Pertinent medical history: hypertension, coronary artery disease, peripheral vascular disease, carotid occlusive disease, hyperlip idemia and neuropathy, but no nephropathy and no retinopathy. Risk factors: no obesity, no inactivity, no prolonged corticosteroid use and no use of psychotrop ic medications. Family history: diabetes mellitus type II and obesity, but no d iabetes mellitus type I and no premature coronary artery disease. Past evaluatio n has included hemoglobin A1c, metabolic panel, fasting lipid profile, urinalysi s (last Ur MAB:Cr normal on 10/27/2010) and ophthalmology examination (Last exam was 01/05/[address] Blake Wen at [facility], , in [place], [place]). Past treatment has included diabetic teaching, glucose monitoring, aspirin, diet modification, exercise program and atorvastatin. He was previously evaluated by me 6 month(s) ago. Assessment 1. Type 2 Diabetes Mellitus With Complication 250.90 2. Diabetic Peripheral Neuropathy 357.2 3. Dyslipidemia 272.4 4. Hypertension 401.9 Plan 1. Diabetes mellitus 2. Complicated by peripheral neuropathy, which is only intermittently and mildly symptomatic. Controlled as evidenced by his A1c of 5. 8% at [facility] on 10/13/2011, as well as review of his glucose log. Patient should continue current therapeutic lifestyle changes, including diet and exercise, for his diabetes management. He can decrease gluc ose monitoring to 3-4 times per week prior to breakfast, and 3-4 times per week prior to supper. As long as fasting levels remain generally below 120, and nonf asting, presupper levels remain generally below 140, he can followup in 6 months . I will update his urine MAB:Cr ratio today. His annual eye exam is currently up-to-date. 2. Dyslipidemia. Lipids have been reasonably controlled. He should continue a torvastatin 40 mg daily and Cardiotab omega 3 for now, unless recommended otherw ise by cardiology. 3. Hypertension. Blood pressure is at goal. I recommend he continue his curre nt therapy. CC: Charmaine Black M.D. Olman Holloway M.D. Current Meds 1. Aspirin EC 325 MG Oral Tablet Delayed Release; ONE TAB BY MOUTH DAILY; Therap y: 80Eoe6315 to (Evaluate:25Dec2009); Last Rx:[id number] Ordered; For: Coronary Artery Disease (414.00); Rx By: DESIREE HERRERA; Dispense: 3 0 Days ; #:30 TBEC; Refill: 0; Record Formulary Override Reason: No Formulary Equivalent Exists 2. Atorvastatin Calcium 40 MG Oral Tablet; Therapy: 09Jan2010 to (Evaluate:2011) Recorded; For: Dyslipidemia (272.4); Dispense: 0 Days ; #: Sufficient Tablet; Re fill: 0; RICHARD; Record; Last Updated By: DESIREE HERRERA 3. CardioTabs CardioDaily; TAKE 1 TABLET DAILY; Therapy: 61Cld1395 to (Evaluate: 03Kgz7791); Last Rx:[id number] Ordered; For: Coronary Artery Disease (414.00); Rx By: DESIREE HERRERA; Dispense: 3 0 Days ; #:30; Refill: 0; Record 4. CardioTabs [place] 3; TAKE 2 TABLETS BY MOUTH DAILY; Therapy: 39Zsj8405 to (Evaluate:30Bqc4391); Last Rx:[id number] Ordered; For: Dyslipidemia (272.4); Rx By: DESIREE HERRERA; Dispense: 30 Days ; #:6 0; Refill: 0; Record 5. Flax Seeds Oral Powder; 2 tbs daily; Therapy: 08Xcj5695 to Recorded; Dispense: 0 Days ; #: Sufficient GM; Refill: 0; Record; Last Updated B y: Marilyn Hoffman 6. Metoprolol Succinate 25 MG Oral Tablet Extended Release 24 Hour; TAKE 1 TABLE T ONCE DAILY; Therapy: 54Dcn0903 to (Evaluate:24Bhw8493) Recorded; For: Hypertension (401.9); Dispense: 30 Days ; #:30 TB24; Refill: 0; D AW; Record; Last Updated By: DESIREE HERRERA 7. Omeprazole 20 MG Oral Capsule Delayed Release; Therapy: 26Jgo1427 to Recorded; For: Esophageal Reflux (530.81); Dispense: 0 Days ; #: Sufficient Caps ule Delayed Release; Refill: 0; Record; Last Updated By: DESIREE HERRERA 8. OneTouch FinePoint Lancets Miscellaneous; TEST TWICE DAILY; Therapy: 35Tmv779 0 to (Evaluate:76Lcc2144) Requested for: 19Qbj3415; Last Rx:[id number] Ordered; For: Type 2 Diabetes Mellitus With Complication (250.90); Rx By: DESIREE HERRERA; Dispense: 50 Days ; #:100 EA; Refill: 11; Verified Transmission to [facility] 9. OneTouch Ultra Blue In Vitro Strip; TEST TWICE DAILY; Therapy: 78Uqu0049 to (Evaluate:26Uex5332) Requested for: 15Irv6812; Last Rx:[id number] Ordered; For: Type 2 Diabetes Mellitus With Complication (250.90); Rx By: DESIREE HERRERA; Dispense: 50 Days ; #:100 EA; Refill: 11; Verified Transmission to [facility] 10. Sertraline HCl 50 MG Oral Tablet; Therapy: 39Gpu8575 to Recorded; For: Anxiety (Symptom) (300.00), Depressive Disorder NOS (311); Dispen se: 0 Days ; #: Sufficient Tablet; Refill: 0; Record; Last Updated By: BAILEY HERRERA 11. Vitamin D 1000 UNIT Oral Capsule; TAKE 2 CAPSULES BY MOUTH DAILY; Therapy: 1 2Apq8319 to (Renew:83Szw8038); Last Rx:[id number] Ordered; For: Vitamin D Deficiency (268.9); Rx By: DESIREE HERRERA; Dispense: 30 Da ys ; #:60 Capsule; Refill: 11; Record Formulary Override Reason: Patient has requested non-preferred drug Allergies 1. Niaspan TBCR Adverse Reaction; Thrombocytopenia; Vitals Vital Signs [Data Includes: Last 1 Day] 90Bvk5774 11:15AM BMI Calculated 27.91 BSA Calculated 1.98 Height 5 ft 8 in Weight 184 lb 2 oz Systolic 116 Diastolic 76 Heart Rate 60 Review of Systems A 10 point review [...] V45.81 4 vv 08/31/07 3. History of Dental Surgery 4. History of Partial Colectomy 5. History of Transcath Intravascular Stent Placement Percutaneous Renal Family History 1. Family history of Coronary Artery Disease Brother and Father 2. Family history of Dementia Mom and Sister 3. Family history of Stroke Syndrome V17.1 Mom 4. Family history of Type 2 Diabetes Mellitus Mom and Grandmother Social History 1. Being A Social Drinker has 2-3 beers a week 2. Exercising Regularly 3. Never A Smoker 4. Uses Safety Equipment - Seatbelts Denied 5. History of Current Smoker Physical Exam General: Patient is a pleasant [...] 1 Instance] Printed in Appendix #1 below. 10/13/2011 (per [facility]): AST 25, ALT 19, serum g lucose 116 Signatures Electronically signed by : DESIREE HERRERA M.D.; Nov 02 2011 11:46AM (Author) Appendix #1 Diabetes Flowsheet [Data Includes: Last 1 Instance] Patient: CARL CHILDERS; : 1935; [id number] 11Kmp7941 [id number] 41Ouj3538 Systolic 116 Diastolic 76 BMI Calculated 27.91 BSA Calculated 1.98 Height 5 ft 8 in Weight 184 lb 2 oz Hemoglobin A1C Finger Stick 5.9 Hemoglobin A1C 5.8 Cholesterol Lipid Prof 127 Triglycerides 118 Hdl 33 33 Ldl Cholesterol 70 Total Cholesterol/Hdl Ratio 3.2 Non- HDL Cholesterol 95 mg/dL HDL Microalbumin Mg/L <0.20 mg/dL Creatinine, Urine Random Quant 98.6 mg/dL Microalbumin/Creatinine Ratio Not Calc ug/mg Leg / Foot Monofilament Wire Test Decreased Sensation Neg Feet Appearance Left Pos Feet Appearance Right Pos Pulse Amplitude Dorsalis Pedis Left Pos (1 ) Pulse Amplitude Dorsalis Pedis Right Pos (1 ) * Desiree Herrera MD - 11/02/2011 11:20 AM CDT Clinical Summary Patient Name : CARL CHILDERS Appointment Date: 11/02/2011 11:20:00 AM : [id number] : [address] [place] [place] 1935 [place] [address] : Assessed Problems Type 2 Diabetes Mellitus With Complication Diabetic Peripheral Neuropathy Dyslipidemia Hypertension Treatment Plan Labs/Procedures: Glucose Finger Stick 1. Diabetes mellitus 2. Complicated by peripheral neuropathy, which is only in termittently and mildly symptomatic. Controlled as evidenced by his A1c of 5.8% at [facility] on 10/13/2011, as well as review of his glucose log. Patient should continue current therapeutic lifestyle changes, i ncluding diet and exercise, for his diabetes management. He can decrease glucos e monitoring to 3-4 times per week prior to breakfast, and 3-4 times per week pr ior to supper. As long as fasting levels remain generally below 120, and nonfas ting, presupper levels remain generally below 140, he can followup in 6 months. I will update his urine MAB:Cr ratio today. His annual eye exam is currently u p-to-date. 2. Dyslipidemia. Lipids have been reasonably controlled. He should continue a torvastatin 40 mg daily and Cardiotab omega 3 for now, unless recommended otherw ise by cardiology. 3. Hypertension. Blood pressure is at goal. I recommend he continue his curre nt therapy. CC: Charmaine Black M.D. Olman Holloway M.D. Vitals Recorded Date/Time: 11/02/2011 11:15:00 AM Systolic: 116 mm Hg; Diastolic: 76 mm Hg; Heart Rate: 60 bpm; BMI Calculated: 27.91; BSA Calculated: 1.98; Height: 5-8 in; Weight: 184-2 lb Current Medications Aspirin EC 325 MG Oral Tablet Delayed Release; ONE TAB BY MOUTH DAILY; Days: 3 0; Qty: 30; Refill: 0 Atorvastatin Calcium 40 MG Oral Tablet; ; Days: 0; Qty: ; Refill: 0 CardioTabs CardioDaily; TAKE 1 TABLET DAILY; Days: 30; Qty: 30; Refill: 0 CardioTabs [place] 3; TAKE 2 TABLETS BY MOUTH DAILY; Days: 30; Qty: 60; Refill: 0 Flax Seeds Oral Powder; 2 tbs daily; Days: 0; Qty: ; Refill: 0 Metoprolol Succinate 25 MG Oral Tablet Extended Release 24 Hour; TAKE 1 TABLET ONCE DAILY.; Days: 30; Qty: 30; Refill: 0 Omeprazole 20 MG Oral Capsule Delayed Release; ; Days: 0; Qty: ; Refill: 0 OneTouch FinePoint Lancets Miscellaneous; TEST TWICE DAILY.; Days: 50; Qty: 10 0; Refill: 11 OneTouch Ultra Blue In Vitro Strip; TEST TWICE DAILY.; Days: 50; Qty: 100; Ref ill: 11 Sertraline HCl 50 MG Oral Tablet; ; Days: 0; Qty: ; Refill: 0 Vitamin D 1000 UNIT Oral Capsule; TAKE 2 CAPSULES BY MOUTH DAILY; Days: 30; Qt y: 60; Refill: 11 Allergies Niaspan TBCRReactions: Thrombocytopenia Results Glucose Finger Stick 12 pp Glucose Finger Stick; Value = 122; Abnormal Document and Provider Details Document: Clinical Summary Provider: JAVIER Site: [facility] Diabetes Site Address : [address] [place] [address] Site documented in this encounter Plan of Treatment Not on filedocumented as of this encounter Procedures Comments Procedure Name Priority Date/Time Associated Diag nosis GLUCOSE POC Routine 11/02/2011 11:22 AM CDT documented in this encounter Results * GLUCOSE POC (11/02/2011 11:22 AM CDT) Glucose, 122 (A) 0 OFFICE ENTERED Fingerstick Specimen Performing Organization Address City/State/Zipcoor Ph one Number OFFICE ENTERED documented in this encounter Visit Diagnoses Not on filedocumented in this encounter
--- OUTSIDE RECORDS SUMMARY | 2019-09-14 20:41 | XMS REPORT | Encounter Summary ---
Author Author [facility] Organization [facility] Address Unknown Phone Unavailable Care Team Providers Care Recovery Operator Name Role Phone Ananth Black PCP Encounter Details Care Team Description Date Type Department Stephania Whitaker RN FNP- [address] [place] [address] 02/11/2012 [facility] - [facility] Visit Social History Date Tobacco Use Types Packs/Day Years Used Never Assessed Sex Assigned at Date Recorded Not on file Industry Job Start Date Occupation Not on file Not on file Not on file Travel End Travel History Travel Start No recent travel history available. documented as of this encounter Progress Notes * Stephania hWitaker RN FNP- - 02/11/2012 2:56 PM [facility] Office [address] [place] [address] 02/11/2012 ANANTH BLACK MD [address] [facility] [place] [address] Re: CARL LISETH : 1935 Chart#: [id number] Dear Dr. BLACK: This is a followup note regarding CARL CHILDERS. He has completed his cardiac fili ting and I am writing to share the results with you. He had the following tests: 25 - OH Vit :Vitamin D, 25-Hydroxy - 40 ng/mL (target 40-60) Based on the above, I am recommending the following: - continue medical treatment - continued compliance with risk factor modification Follow up is requested as planned. These test results along with my recommendations have been communicated to CARL CHILDERS. I hope this information is useful to you. If you should have any quest ions or concerns, please do not hesitate to contact me. Sincerely, Gita Whitaker RN, BC, SODA FOUNTAIN CLERK-C cc: Shade Pérez MD [id number] [place] [address] ccc: Carl Childers ED SERVICES AND OUTSOURCING MANAGER documented in this encounter Plan of Treatment Not on filedocumented as of this encounter Visit Diagnoses Not on filedocumented in this encounter
--- OUTSIDE RECORDS SUMMARY | 2019-09-14 20:41 | XMS REPORT | Encounter Summary ---
Author Author [facility] Organization [facility] Address Unknown Phone Unavailable Care Team Providers Care Instructional Technology Facilitator Name Role Phone Ananth Black PCP Encounter Details Care Team Description Date Type Department Iza Montoya RN ANP no forwarding address 06/14/2011 [facility] - Hist [facility] Visit Social History Date Tobacco Use Types Packs/Day Years Used Never Assessed Sex Assigned at Date Recorded Not on file Industry Job Start Date Occupation Not on file Not on file Not on file Travel End Travel History Travel Start No recent travel history available. documented as of this encounter Progress Notes * Iza Montoya RN ANP - 06/14/2011 2:41 PM CDT [place] Office [address] [place] [address] 06/17/2011 ANANTH BLACK MD [address] [place] [address] [place] [address] Re: CARL CHILDESR : 1935 Chart#: [id number] Dear Dr. BLACK: This is a followup note regarding CARL LISETH. He has completed his laboratory testing and I am writing to share the results with you. He had the following tests: 25 - OH Vit D: Vitamin D 25 Hydroxy 33 ( 25-80) Based on the above, I am recommending the following: - continue medical treatment; continue current daily Vitamin D supplementation - continued compliance with risk factor modification Follow up is requested. These test results along with my recommendations have been communicated to CARL CHILDERS. I hope this information is useful to you. If you should have any quest ions or concerns, please do not hesitate to contact me. Sincerely, Iza Montoya RN, ANP-BC cc: Shade Pérez MD [facility] [address] [address] Carl Childers documented in this encounter Plan of Treatment Not on filedocumented as of this encounter Visit Diagnoses Not on filedocumented in this encounter
--- OUTSIDE RECORDS SUMMARY | 2019-09-14 20:41 | XMS REPORT | Encounter Summary ---
Author Author [facility] Organization [facility] Address Unknown Phone Unavailable Care Team Providers Care Speed Runner Name Role Phone PCP Unavailable Encounter Details Care Team Description Date Type Department Shade Pérez MD [address] [id number] 04/18/2012 [facility] Encounter [address] [place], [place] [id number] Social History Date Tobacco Use Types Packs/Day [...] Procedure Name Priority Date/Time Associated Diag nosis RENAL PANEL Routine 04/18/2012 1:53 PM FUR POINTER documented in this encounter Results * Renal Panel (04/18/2012 1:53 PM FUR POINTER) Sodium 143 133 - 147 MEQ/L [place] Potassium 4.4 3.5 - 5.1 MEQ/L [place] Chloride 101 96 - 112 MEQ/L [place] Carbon Dioxide 28 20 - 30 MEQ/L [place] Creatinine 1.1 0.6 - 1.3 MG/DL [place] Blood Urea 30 (H) 7 - 26 MG/DL [place] Nitrogen Glucose 101 (H) 70 - 100 MG/DL [place] Anion Gap 15 5 - 17 [place] Phosphorus 3.8 2.5 - 4.5 MG/DL [place] Albumin 4.6 3.5 - 5.0 G/DL [place] Calcium 9.8 8.4 - 10.2 MG/DL [facility] eGFR Male AA 78 [facility] Comment: Chronic Kidney Disease less than 60 mL/min/1.73 sq.m Kidney failure less than 15 mL/min/1.73 sq.m eGFR Male 65 [facility] Non-AA Comment: Chronic Kidney Disease less than 60 mL/min/1.73 sq.m Kidney failure less than 15 mL/min/1.73 sq.m Specimen Blood Performing Organization Address City/State/Zipcode Ph one Number [facility] [address] [place], [place] [address] [place] documented in this encounter Visit Diagnoses Not on filedocumented in this encounter
--- OUTSIDE RECORDS SUMMARY | 2019-09-14 20:41 | XMS REPORT | Encounter Summary ---
Author Author [facility] Organization [facility] Address Unknown Phone Unavailable Care Team Providers Care Animal Control Specialist Name Role Phone PCP Unavailable Encounter Details Care Team Description Date Type Department Shade Pérez MD [address] [id number] [facility] [address] [place] [address] Social History Date Tobacco Use Types Packs/Day Years Used Never Assessed Sex Assigned at Date Recorded Not on file Industry Job Start Date Occupation Not on file Not on file Not on file Travel End Travel History Travel Start No recent travel history available. documented as of this encounter Medications at Time of Discharge Start Date End Date Medication Sig Dispensed Refills 12/31/2013 12/24/2014 ONETOUCH DELICA LANCETS TEST ONCE [...] one 0 0 tablet by mouth daily 11/25/2010 10/09/2014 atorvastatin (LIPITOR) 40 take 1 [...] Procedure Name Priority Date/Time Associated Diag nosis MICROALBUMIN RANDOM Routine 11/02/2011 1:44 PM CDT documented in this encounter Results * Microalbumin Random (11/02/2011 1:44 PM CDT) Creatinine 100.3 MG/DL [place] Urine Random Microalbumin/Cr Not CalcComment: Result is 0.00 - 16.00 UG/MG [place] eatinine Ratio outside linear range. Calculation cannot be performed Microalbumin <0.50 MG/DL [place] mg/dl Specimen Urine Performing Organization Address City/State/Zipcode Ph one Number [facility] [address] [place], [place] [address] [place] documented in this encounter Visit Diagnoses Not on filedocumented in this encounter
--- OUTSIDE RECORDS SUMMARY | 2019-09-14 20:41 | XMS REPORT | Encounter Summary ---
Author Author [facility] Organization [facility] Address Unknown Phone Unavailable Care Team Providers Care Aircraft Life Support Fitter Name Role Phone Benjie Montano PCP Encounter Details Care Team Description Date Type Department Desiree Herrera MD [address] [facility] [address] [place] [phone] 11/04/2011 [employer] Note [facility] [place] [address] [facility] [address] [place] [phone] Social History Date Tobacco Use Types Packs/Day Years Used Never Assessed Sex Assigned at Date Recorded Not on file Industry Job Start Date Occupation Not on file Not on file Not on file Travel End Travel History Travel Start No recent travel history available. documented as of this encounter Miscellaneous Notes * Miscellaneous - Desiree Herrera MD - 11/04/2011 3:38 PM CDT Verified Results Collected/Examined: Nov 02, 2011 1:44PM Test Result Flag Acceptable Microalbumin Urine Hank Microalbumin Mg/L <0.50 mg/dL Creatinine, Urine Random Quant 100.3 mg/dL Microalbumin/Creatinine Ratio Not Calc ug/mg 0.00-16.00 Result is outside linear range. Calculation cannot be performed^^ Discussion/Summary Carl, Your labs are stable. If you have any questions, please give me a call. We marzena lly appreciate you. Thank You So Much! Glory HARMAN [phone] * Miscellaneous - Desiree Herrera MD - 11/04/2011 3:38 PM CDT Verified Results Collected/Examined: Nov 02, 2011 1:44PM Test Result Flag Acceptable Microalbumin Urine Hank [Nov 04, 2011 3:38PM DESIREE HERRERA] Ur MAB undetectable. No evidence for nephropathy. Microalbumin Mg/L <0.50 mg/dL Creatinine, Urine Random Quant 100.3 mg/dL Microalbumin/Creatinine Ratio Not Calc ug/mg 0.00-16.00 Result is outside linear range. Calculation cannot be performed^^ Discussion/Summary Carl, Your labs are stable. If you have any questions, please give me a call. We marzena lly appreciate you. Thank You So Much! Glory HARMAN [phone] documented in this encounter Plan of Treatment Not on filedocumented as of this encounter Visit Diagnoses Not on filedocumented in this encounter
--- OUTSIDE RECORDS SUMMARY | 2019-09-14 20:41 | XMS REPORT | Encounter Summary ---
Author Author [facility] Organization [facility] Address Unknown Phone Unavailable Care Team Providers Care Railroad Carman Name Role Phone Ananth Black PCP Encounter Details Care Team Description Date Type Department Iza Montoya RN ANP no forwarding address 06/10/2011 [facility] Visit Social History Date [...] Reading Time Taken Comments Vital Sign 130/70 06/10/2011 8:53 AM CDT Blood Pressure 64 06/10/2011 8:53 AM CDT Pulse - - Temperature - - Respiratory Rate - - Oxygen Saturation - - Inhaled Oxygen Concentration 84.8 kg (187 lb) 06/10/2011 8:53 AM CDT overweight Weight 170.2 cm (5' 7") 06/10/2011 8:53 AM CDT Height 29.29 06/10/2011 8:53 AM CDT Body Mass Index documented in this encounter Progress Notes * Iza Montoya RN ANP - 06/10/2011 8:15 AM CDT [place] [facility] [address] [place] [address] June 10, 2011 ANANTH BLACK MD [address] [facility] [place] [address] [place] [address] RE: CARL CHILDERS : 1935 CHART #: [id number] Visit Provider: Iza Montoya RN, ANP- Visit Location: [facility] I had the pleasure of seeing CARL CHILDERS in [facility] for cardi ovascular risk reduction. He is 76 years of age and presents with the following chief complaints: coronary artery disease, dyslipidemia. Risk factors include: Male greater than 45 years old HDL less than 40 Obesity Diagnosed with Type 2 Hypertension Dyslipidemia Family hx (CAD < 60 Yo) Formerly smoked for 25.00 years quit in 1977. Known coronary artery disease and dyslipidemia. Laboratory Results from today's visit are as follows: Date Collected: 06/10/2011 Fasting: Fasting Total Cholesterol: 122 HDL: 36 LDL: 60 Triglycerides: 128 Ratio: 3.39 Glucose 116 HbA1c 6.0 ALT 23 AST 22 Final Medications: Whey Protein 25 Gram-140 Kcal/34 Gram 1 scoop of whey protein daily Lipitor 80 Mg take 1 tablet (80MG) by oral route every day Cardio Tea two capsules by mouth daily with food Tylenol Extra Strength 500 Mg take tablet (500MG) by oral route every 6 hours as needed Vitamin D 1000 Unit Take 2 tablets by oral route daily Cialis 2.5 Mg take 1 tablet (2.5MG) by oral route as needed CardioDaily 1 take 1 tablet by oral route every day Aspirin 325 Mg Take one tablet by mouth daily Toprol XL 25 Mg Take one tablet by mouth in the AM. Prilosec OTC 20 Mg Take one tablet by mouth daily Golden-3 Fatty Acids Take two capsules by mouth twice per day Zoloft 50 Mg Take one tablet by mouth daily Allergies: Allergy Comment Reaction Niacin Niaspan Extended-release Reduced Platelets Past Medical History: Anxiety Cholelithiasis Obesity Osteoporosis Perforated diverticulum Osteoarthritis Osteopenia Erectile Dysfunction Diverticulosis Colon polyps Gallbladder dysfunction BPH Squamous cell CA 2002 Sleep Apnea on CPAP 2004 Synvisc shot 2010 Cortisone Shot 2010 Past Surgical History: Colon resection 1999 Appendectomy 1999 Squamous cell Cancer Removal 2001 Renal Artery Stent 2007 Quadruple bypass surgery 2007 Removal of 2 infected molars 2010 Family History: Father Diagnosed with Heart Disease. Cause of was [place] at age 62. Mother Diagnosed with Dementia, diabetes. Cause of was CVA at age 82. Brother Diagnosed with HTN Brother Cause of was CRF at age [...] Rehab 1 hr x 3 day/wk, Circuit Fish Conservationist 20-30 min 3x /wk, Stationary Bike 30 min daily, Elliptical 15-30 min 3 day/wk, Bicycle 2-3 day/wk weather permittin g Tobacco: Former user of cigarettes 2.00 pack(s) per day for 25.00 year(s). Joe t in 1977 Alcohol: Currently drinks 5 oz. of wine daily Caffeine: Caffeine use: 3 cups of coffee ROS: 12-point review of systems is negative with the following exceptions: Pulmonary: Daytime drowsiness, Sleep apnea Musculoskeletal/Dermatology: Arthralgias Physical Exam: Vital Signs The patient is 5ft 7in tall, and weighs 187lbs. The BMI is 29.30. B lood pressure taken in the left arm is 130/70 mmHg in the sitting position. The pulse is 64. Const The patient is an overweight male. Pulm The respiratory pattern is nonlabored. M/S The patient's gait is normal. Neuro/Psych The patient is alert and oriented to time, person and place. The pa tient's mood is normal. No aphasia is apparent by exam. Exercise: Cycles for 40 minutes daily. Cardiac rehabilitation three times per week Summary and Recommendations: 1. Known coronary artery disease. He is currently without anginal symptoms. He last saw our database security administrator, Dr. Osmin Holloway, in September of 2010. He will continue with his joseph al appointments with our database security administrator or sooner, if deemed necessary, for a complete exam and furthe r recommendations. 2. Dyslipidemia. LDL and triglycerides are optimally controlled. HDL is subopt imal at 36. At last visit, it was recommended that Mr. Childers increase his Lipitor to 80 mg. The patient states that he continued on 40 mg of Lipitor. However, his LDL did decrease from 80 to 60. 3. Hypertension, optimally controlled. Documented blood pressure readings from cardiac rehab range from 105 to 120/60-70. Body mass index of 29.30 with a waist circumference of [address] Mr[address] Childers in the overweight category. He has lost weight and has m aintained his weight loss. Most recently, he has lost three pounds. He has changed his diet and he is working on another 5 pound weight loss. 4. His 25-hydroxyvitamin D blood test in February of 2010 was 39. We will reche ck this level today and make further recommendations as necessary. Fasting blood sugar today is 11 6 with a hemoglobin A1C of 6. This does place Mr. Childers in the pre-diabetic category. I encouraged Mr. Childers to be diligent with cutting back on his carbohydrates and simple sugars. I gave him a handout on lower sugar and higher protein ideas for his diet. He did state that he wou ld be diligent with cutting back on these carbohydrates and simple sugars in his diet in order to p revent type 2 diabetes. Testing Ordered on Today's Visit: 25 - OH Vit D Today Next Preventive Visit: In 4 Months We will apprise you of the above test results and further recommendations as the y are available. Thank you for allowing us to participate in the care of this nice patient. Nohemi tao do not hesitate to call should you have questions or concerns. Sincerely, Iza Montoya RN, ANP-BC SV/ct Supervising physician available for consultation is: Richard Carbone M.D. cc: CARL CHILDERS [address] [place] [address] [place] [address] Shade Pérez MD [address] [place], [place] [id number] FAX: F: 06/15/2011 documented in this encounter Plan of Treatment Not on filedocumented as of this encounter Visit Diagnoses Not on filedocumented in this encounter
--- OUTSIDE RECORDS SUMMARY | 2019-09-14 20:41 | XMS REPORT | Encounter Summary ---
Author Author [facility] Organization [facility] Address Unknown Phone Unavailable Care Team Providers Care Political Analyst Name Role Phone Charmaine Black PCP Encounter Details Care Team Description Date Type Department Stephania Whitaker RN SPANISH MEDICAL INTERPRETER- [address] [place] [address] 04/13/2012 [facility] - [facility] Visit Social [...]
--- OUTSIDE RECORDS SUMMARY | 2019-09-14 20:41 | XMS REPORT | Encounter Summary ---
Author Author [facility] Organization [facility] Address Unknown Phone Unavailable Care Team Providers Care Cloth Shrinking Supervisor Name Role Phone Charmaine Black PCP Encounter Details Care Team Description Date Type Department Stephania Whitaker RN ER MEDICAL TECHNICIAN- [address] [place] [address] 11/09/2011 [facility] - [facility] Visit Social History [...]
--- OUTSIDE RECORDS SUMMARY | 2019-09-14 20:41 | XMS REPORT | Encounter Summary ---
Author Author [facility] Organization [facility] Address Unknown Phone Unavailable Care Team Providers Care Can Line Examiner Name Role Phone Ananth Black PCP Encounter Details Care Team Description Date Type Department Olman Holloway MD [address] [address] 11/09/2011 [facility] [...] Signs Reading Time Taken Comments Vital Sign 122/64 11/09/2011 12:14 PM CDT Blood Pressure 59 11/09/2011 12:14 PM CDT Pulse - - Temperature - - Respiratory Rate - - Oxygen Saturation - - Inhaled Oxygen Concentration 85.3 kg (188 lb) 11/09/2011 12:14 PM CDT overweight Weight 170.2 cm (5' 7") 11/09/2011 12:14 PM CDT Height 29.44 11/09/2011 12:14 PM CDT Body Mass Index documented in this encounter Progress Notes * Olman Holloway MD - 11/09/2011 11:30 AM CDT [place] [facility] [address] [place] [address] November 09, 2011 ANANTH BLACK MD [address] [facility] [place] [address] RE: CARL CHILDERS : 1935 Chart #: [id number] Visit provider: Olman Holloway M.D. Visit location: [place] office Dear Dr. BLACK: I had the pleasure of seeing CARL CHILDERS in the office today. He is 76 years of age and presents with the following chief complaints: Coronary artery disease. HPI: He has not been having pains to suggest angina. He remains quite active physica lly, trying to work out multiple times per week. He does some treadmill as well as some cycling. He has not had chest pains or shortness of breath or palpitat ions or syncope or presyncope. He is now just over four years from coronary bypass surgery. He has a history o f type 2 diabetes and of dyslipidemia and of hypertension. He has also been bat tling his weight. He has had prior stenting of the right renal artery and had f ollow-up duplex about two years later that showed wide patency. He also has car otid bruits with mild external carotid stenosis when last assessed in 2009. Problem List: 08/24/2007 CAD MPI Stress Test Mild to moderate ischemia in the distribution of the left anterior descending coronary artery and right coronary artery occurring at a low workload. Markedly positive ST segment change at low workload. Normal left ventricular systolic function. LVEF at rest is 71%. 1. Patient received sublingual nitroglycerin early in the recovery period because of chest pain sym ptoms. 2. Test results were verbally communicated on date of dictation at 1525 hours. 08/31/2007 CAD CABG Left internal mammary artery to left anterior descending, sa phenous vein to sequential to OM1 and OM2. Saphenous vein to posterior descendi ng artery with a long vein patch anastomosis across the posterior descending art cam lesion. Congenital Congenital heart disease-Patent foramen ovale DM Type 2 05/22/2004 Dyslipidemia 12/18/2009 Echo 1. Normal left ventricular systolic function, with an estimated ejection fraction of 65%. 2. Mild mitral and tricuspid regurgitation. 3. Severe left atrial dilatation. 4. Mildly elevated pulmonary pressure (39 mmHg). 5. S mall PFO based on a color Doppler evaluation. Compared with the prior study mike ed 10/13/2007 the degree of mitral regurgitation appears slightly less prominent . 08/24/2007 EF MPI Rest EF: 71, Stress EF: 62 12/18/2009 EF Echo EF: 65 Hypertension Obesity 11/17/2006 PVD Aorto-iliac duplex 1. Moderate atherosclerosis within the abdomin al aorta. 2. Normal abdominal aorta dimensions. 3. Increased flow velocities i n the distal aorta (2.9 m/s) consistent with a significant stenosis. 4. Increas ed flow velocities in the right common iliac consistent with a 50-75% stenosis. 5. Increased flow velocity (3.6 m/s) is incidentally noted in the right renal a rtery. 12/30/2006 PVD CTA Runoff 1. High-grade stenosis [...] see the radiology report for details of th e nonvascular findings. 02/13/2007 PVD Renal angiography Bilateral renal stent - Right Renal Artery from 99% to 0% post 5.5 x 18mm Herculink Plus Stent post-dilated with a 6.5 mm ballo on secondary to marked poststenotic dilatation. 09/23/2008 PVD Renal Duplex Normal velocities in both renal arteries with no claudio dence for a significant stenosis, including the stent in the right renal artery. A cyst, measuring 1.4 cm x 1.5 cm, is present in the left kidney. No signific ant change from 08/24/2007. 10/14/2009 PVD Carotid Duplex There is a >50% stenosis in the right ECA. Tobacco Abuse Former Past Medical History: Anxiety Cholelithiasis Obesity Osteoporosis Perforated diverticulum Osteoarthritis Osteopenia Erectile Dysfunction Diverticulosis Colon polyps Diabetic peripheral neuropathy BPH Squamous cell CA 2002 Sleep Apnea on CPAP 2004 Past Surgical History: Colon resection 1999 Appendectomy 1999 Squamous cell Cancer Removal 2001 Renal Artery Stent 2007 Quadruple bypass surgery 2007 Removal of 2 infected molars 2010 Final Medications: CardioTabs CardioWhey Mix Prilosec OTC 20 Mg Take one tablet by mouth daily Lipitor 40 Mg take 1 tablet (40MG) by oral route every day Whey Protein 25 Gram-140 Kcal/34 Gram 1 [...] Take one tablet by mouth in the AM [place]-3 Fatty Acids Take two capsules by mouth twice per day Zoloft 50 Mg Take one tablet by mouth daily Allergies/Intolerances: Allergy Comment Reaction Niacin Niaspan Extended-release Reduced Platelets Family History: Brother Diagnosed with HTN. Mother Diagnosed with diabetes, dementia. Cause of was CVA at age 82. Brother Cause of was CRF at age 67. Father Diagnosed with heart disease. Cause of was [place] at age 62. Brother Cause of was CABG at age 71. Sister Cause of was [place] at age 86. Social History: Marital Status: Children: 3 Occupation: Retired Advance Directives: There are no advance directives. The patient has a living w ill that was executed on 03/07/2007. Diet: Low fat/chol, Low salt Exercise: Regular - cardio rehab 1 hr x 3 day/wk, circuit outdoor fitness trainer 20-30 min 3x/ wk, stationary bike 30 min daily, elliptical 15-30 min 3 day/wk, bicycle 2-3 day/wk weather permitting Tobacco: Former user of cigarettes - 2.00 pack(s) per day for 25.00 year(s), qu it in 1977 Alcohol: Currently drinks 5 oz. of wine daily Caffeine: Caffeine use: 3 cups of coffee ROS: 12-point review of systems is negative with the following exceptions: Pulmonary: Sleep apnea Physical Exam: Vital Signs The patient is 5ft 7in tall, and weighs 188lbs. The BMI is 29.40. B lood pressure taken in the left arm is 122/64 mmHg in the sitting position. The pulse is 59. The rhythm is regular. Const The patient is an overweight male. HEENT The pupils are equal and round. The patient's sclerae are clear. There i s no corneal arcus. There are no xanthelasmas noted. The patient's neck veins are flat. There is no thyromegaly. Pulm The respiratory pattern is nonlabored. Cardiac Regular rate and rhythm. Normal S1 [...] right and left popliteal pulses are normal. There are rig ht and left carotid bruits present. EXT The extremities are warm to touch. There is no edema noted. M/S The patient's gait is normal. Skin The skin is warm and dry. Neuro/Psych The patient is alert and oriented to time, person and place. The pa nilda's mood is normal. No aphasia is apparent by exam. EKG: Result: No change since last visit. Rhythm: Sinus Rate: 59 AV Conduction: Right bundle branch block Intervals: QTc: 428 ms Most Recent Lipids Available for Review: Date Collected: 10/13/2011 Fasting: Fasting Total Cholesterol: 127 HDL: 33 LDL: 70 Triglycerides: 118 Ratio: 3.85 Glucose: 116 ALT: 19 HbA1C: 5.8 Impression and Plan: 1. Post coronary artery bypass grafting: When I see him next year, he will be a t about five years post coronary artery bypass grafting and I will have him unde rgo stress testing. His symptoms before surgery were exertional dyspnea. He chatman s not had any of that. He knows to be in touch promptly should he develop any s ymptoms to suggest angina or anginal equivalent disease. 2. Dyslipidemia: Lipids are at target. He follows up in the [facility]. 3. Type 2 diabetes: Diabetes appears to be under good control. He is following up closely with diabetology. 4. Sleep apnea: He uses CPAP. 5. Hypertension: Blood pressure under good control. Testing ordered: Description Interval MPI - exercise With Next Visit Follow up: Olman Holloway M.D. 1 Year Thank you for allowing me to participate in CARL CHILDERS's care. If I can be of any further assistance, please do not hesitate to contact me. Sincerely, Olman Holloway M.D. TMB/sara cc: Shade Pérez MD [address] [address] F: 11/16/2011 documented in this encounter Plan of Treatment Not on filedocumented as of this encounter Visit Diagnoses Not on filedocumented in this encounter
--- OUTSIDE RECORDS SUMMARY | 2019-09-14 20:41 | XMS REPORT | Encounter Summary ---
Author Author [facility] Organization [facility] Address Unknown Phone Unavailable Care Team Providers Care Veterinary Assistant Name Role Phone Charmaine Black PCP Encounter Details Care Team Description Date Type Department Stephania Whitaker RN PHOTOFLASH POWDER MIXER-BC [address] [place] [address] 02/09/2012 [facility] [...] Signs Reading Time Taken Comments Vital Sign 138/70 02/09/2012 11:56 AM [facility] Blood Pressure 64 02/09/2012 11:56 AM [facility] Pulse - - Temperature - - Respiratory Rate - - Oxygen Saturation - - Inhaled Oxygen Concentration 83 kg (183 lb) 02/09/2012 11:56 AM [facility] overweight Weight 170.2 cm (5' 7") 02/09/2012 11:56 AM [facility] Height 28.66 02/09/2012 11:56 AM [facility] Body Mass Index documented in this encounter Progress Notes * Stephania Whitaker RN FNP-MANFRED - 02/09/2012 11:45 AM [facility] [place] [facility] [address] [place] [address] February 09, 2012 CHARMAINE BLACK MD [address] [facility] [place] [place] [address] RE: CARL CHILDERS : 1935 CHART #: [id number] Visit Provider: Gita Whitaker RN, BC, PHOTOFLASH POWDER MIXER-C Visit Location: [facility] I had the pleasure of seeing CARL CHILDERS in the [facility] for cardi ovascular risk reduction. He is 77 years of age and presents with the following chief complaints: coronary artery disease, dyslipidemia, and hypertension. Risk factors include: Male greater than 45 years old HDL less than 40 Obesity Diagnosed with Type 2 hypertension Dyslipidemia Family hx (CAD < 60 Yo) Formerly smoked 2.00 pack(s) per day for 25.00 years(50.00 pack years) quit in 8. Known history of coronary artery disease Laboratory Results from today's visit are as follows: Date Collected: 02/09/2012 Fasting: Fasting Total Cholesterol: 129 HDL: 43 LDL: 69 Triglycerides: 82 Ratio: 3.00 Glucose 112 HbA1c 6.1 ALT 21 AST 36 Final Medications: CardioTabs CardioWhey Mix Prilosec OTC [...] one tablet by mouth in the AM. [place]-3 Fatty Acids Take two capsules by mouth twice per day Zoloft 50 Mg Take one tablet by mouth daily Allergies: Allergy Comment Reaction Niacin Niaspan Extended-release Reduced Platelets Past Medical History: Anxiety Cholelithiasis Obesity Osteoporosis Perforated diverticulum Osteoarthritis Osteopenia Erectile Dysfunction Diverticulosis Colon polyps diabetic peripheral neuropathy BPH Squamous cell CA 2002 Sleep Apnea on CPAP 2003 Past Surgical History: Colon resection 1999 Appendectomy 1998 Squamous cell Cancer Removal 2001 Renal Artery Stent 2007 Quadruple bypass surgery 2007 Removal of 2 infected molars 2010 Family History: Brother Diagnosed with HTN Mother Diagnosed with Diabetes, Dementia. Cause of was CVA at age 82. Brother Cause of was CRF at age 67. Father Diagnosed with Heart Disease. Cause of was [place] at age 62. Brother Cause of was CABG at age 71. Sister Cause of was [place] at age 86. Social History: Marital Status: Children: 3 Occupation: Retired Advance Directives: There are no advance directives. The patient has a living wi ll that was executed on 03/07/2007 Diet: Low fat/chol, Low salt Exercise: Regular. Cardio Rehab 1 hr x 3 day/wk, Circuit Highway Engineer 20-30 min 3x/ wk, Stationary Bike 30 min daily, Elliptical 15-30 min 3 day/wk, Bicycle 2-3 day/wk weather permitting Tobacco: Former user of cigarettes 2.00 pack(s) per day for 25.00 year(s). Joe t in 1977 Alcohol: Currently drinks 5 oz. of wine daily Caffeine: Caffeine use: 3 cups of coffee ROS: 12-point review of systems is negative with the following exceptions: Pulmonary: Snore Physical Exam: Vital Signs The patient is 5ft 7in tall, and weighs 183lbs. The BMI is 28.70. B lood pressure taken in the left arm is 138/70 mmHg in the sitting position. The pulse is 64. The rhythm is regular. Const The patient is an overweight male. Pulm The respiratory pattern is nonlabored. M/S The patient's gait is normal. Neuro/Psych The patient is alert and oriented to time, person and place. The pa tient's mood is normal. No aphasia is apparent by exam. Exercise: Circuit agency trainer for 20 minutes three times per week. Cardiac rehabilitation three times per week Current Diet: Yesterday for breakfast he had Divehi yogurt and he put in his own blueberries. For lunch he had a three stevenson soup with four crackers and water. For dinner last night he had chicken fajitas and some hot tea. He typically does not snack, but if he snacks it is usually on a fruit such as an apple. Summary and Recommendations: 1. Known history of coronary artery disease, currently without anginal symptoms. He last saw our associate director financial aid Dr. Osmin Holloway in 11/16. Mr. Childers will continue with annual appointments with our associate director financial aid or sooner if deemed necessary for complete exams and further recommendations. 2. Dyslipidemia, optimally controlled. 3. Hypertension. He presents today in prehypertension stage, but he reports his blood pressure is monitored at cardiac rehab and they have all been normotensiv e. He will continue to monitor his blood pressures. He will call if it is cons istently greater than 130/80. 4. We will check a 25-hydroxyvitamin D blood test. We will keep you apprised of this test result and further recommendations as available. 5. Type 2 diabetes mellitus. Fasting blood sugar today is 112. Hemoglobin A1c i s up from 5.8 to 6.1%. Mr. Childers will continue to be diligent with cutting kelsey k on simple carbs and sugars in his diet. I also recommended he see our dietitia n, Lexie Blanca Maldonado. 6. Body mass index of 28.70 with a waist circumference of 35. As you know , we would like to see Mr. Moy waist circumference be 33.5 or le ss for optimal health. He is currently down 3 lbs as well as 1 in his wais t since 10/16. He will continue to maintain his weight loss through the holidays , and after the holidays he will plan on working on an additional 5 lb weight lo ss. Testing Ordered on Today's Visit: 25 - [...] questions or concerns. Sincerely, Gita Whitaker RN, MANFRED, MALGORZATA-C [facility]/bn Supervising physician available for consultation is: Richard Carbone M.D. cc: CARL LISETH [address] [place] [address] Shade Pérez MD [address] [place] [address] FAX: F: 02/10/2012 ER CLOSED [facility]OL[facility] documented in this encounter Plan of Treatment Not on filedocumented as of this encounter Visit Diagnoses Not on filedocumented in this encounter
--- OUTSIDE RECORDS SUMMARY | 2019-09-14 20:41 | XMS REPORT | Encounter Summary ---
Author Author [facility] Organization [facility] Address Unknown Phone Unavailable Care Team Providers Care Rental Clerk Tool And Equipment Name Role Phone PCP Unavailable Encounter Details Care Team Description Date Type Department Richard Freeman MD [address] [facility] [address] [place] [address] [phone] Stephania Whitaker RN [facility] [address] [place] [address] 02/09/2012 [facility] Encounter [address] [place], [place] [id number] Social History Date Tobacco Use Types Packs/Day [...] 20 MG tablet tablet by mouth daily 12/31/2013 12/24/2014 ONETOUCH DELICA LANCETS TEST ONCE [...] one 0 0 tablet by mouth daily 11/09/2011 10/09/2014 atorvastatin (LIPITOR) 40 take 1 [...] Procedure Name Priority Date/Time Associated Diag nosis VITAMIN D, 25-HYDROXY Routine 02/09/2012 8:30 PM SILHOUETTE ARTIST documented in this encounter Results * Vitamin D, 25-Hydroxy (02/09/2012 8:30 PM SILHOUETTE ARTIST) Vitamin D 40 NG/ML SUNQUEST 25-Hydroxy Comment: Vitamin D 25-Hydroxy: Severe deficiency < 13 ng/mL Mild to moderate deficiency 13 - 24 ng/mL Optimum level 25 - 80 ng/mL Toxicity possible >80 ng/mL Specimen Blood Performing Organization Address City/State/Zipcode Ph one Number [facility] [address] [place], [place] [address] SUNQUEST documented in this encounter Visit Diagnoses Not on filedocumented in this encounter
--- OUTSIDE RECORDS SUMMARY | 2019-09-14 20:41 | XMS REPORT | Encounter Summary ---
Author Author [facility] Organization [facility] Address Unknown Phone Unavailable Care Team Providers Care Bench Precision Assembler Name Role Phone Ananth Black PCP Encounter Details Care Team Description Date Type Department Stephania Whitaker RN LICENSED VETERINARY TECHNICIAN- [address] [place] [address] 10/13/2011 [facility] [...] Reading Time Taken Comments Vital Sign 120/60 10/13/2011 1:42 PM CDT Blood Pressure 80 10/13/2011 1:42 PM CDT Pulse - - Temperature - - Respiratory Rate - - Oxygen Saturation - - Inhaled Oxygen Concentration 84.4 kg (186 lb) 10/13/2011 1:42 PM CDT overweight Weight 170.2 cm (5' 7") 10/13/2011 1:42 PM CDT Height 29.13 10/13/2011 1:42 PM CDT Body Mass Index documented in this encounter Progress Notes * Stephania Whitaker RN FNP-MANFRED - 10/13/2011 1:30 PM CDT [place] Office [address] [place] [address] October 13, 2011 ANANTH BLACK MD [address] [facility] [place] [address] RE: CARL CHILDERS : 1935 CHART #: [id number] Visit Provider: Gita Whitaker RN, BC, LICENSED VETERINARY TECHNICIAN-C Visit Location: [facility] I had the pleasure of seeing [...] today's visit are as follows: Date Collected: 10/13/2011 Fasting: Fasting Total Cholesterol: 127 HDL: 33 LDL: 70 Triglycerides: 118 Ratio: 3.85 Glucose 116 HbA1c 5.8 ALT 19 AST 25 Final Medications: Whey Protein 25 Gram-140 Kcal/34 [...] Mg Take one tablet by mouth daily [place]-3 Fatty Acids Take two capsules by mouth [...] 1999 Appendectomy 1999 Squamous cell Cancer Removal 2002 Renal Artery Stent 2007 Quadruple bypass surgery 2007 Removal of 2 infected molars 2010 Family History: Brother Diagnosed with HTN Mother Diagnosed with Diabetes. Diagnosed with Dementia. Cause of was CV A at age 82. Brother Cause of was CRF at age 67. Father Diagnosed with Heart Disease. Cause of was MT at age 62. Brother Cause of was CABG at age 71. Sister Cause of was CA at age 86. Social History: Marital Status: Children: 3 Occupation: Retired Advance Directives: There are no advance directives. The patient has a living wi ll that was executed on 03/07/2007 Diet: Low fat/chol, Low salt Exercise: Regular. Cardio Rehab 1 hr x 3 day/wk, [employer] [place] 20-30 min 3x /wk, Stationary Bike 30 [...] patient is 5ft 7in tall, and weighs 186lbs. The BMI is 29.10. B lood pressure taken in the left arm is 120/60 mmHg in the sitting position. The pulse is 80. The rhythm is regular. Const The patient is an overweight male. Pulm The respiratory pattern is nonlabored. M/S The patient's gait is normal. Neuro/Psych The patient is alert and oriented to time, person and place. The pa tient's mood is normal. No aphasia is apparent by exam. Exercise: Cycles for 30 minutes five times per week. Cardiac rehabilitation twice weekly Summary and Recommendations: 1. Known history of coronary artery disease, currently without anginal symptoms. He last saw our fountain waitress/waiter, Dr. Osmin Holloway, in September of 2010. Mr. Childers has a pending appointment with Dr. Holloway in November of 2011. He will continue with annual appointments with our fountain waitress/waiter or sooner, if deemed necessary, for a complete exam and further recommendations. 2. Dyslipidemia. Triglycerides and LDL are optimally controlled. HDL remains s uboptimally controlled. He is to continue with his excellent exercise regimen a nd work on weight loss efforts to further raise his HDL cholesterol. Mr. Childers , since September of 2009, has lost 35 pounds. He will continue to maintain his exce llent weight and work on further weight loss efforts. 3. Hypertension, optimally controlled. 4. His 25-hydroxyvitamin D blood test in June of 2011 was sufficient at 33. He will continue with the same vitamin D supplement. 5. Type 2 diabetes mellitus. Fasting blood sugar is 116. Hemoglobin A1C is 5.8 , down from 6% and demonstrates excellent control of his diabetes for which he c ontrols with diet and lifestyle. 6. Body mass index 29.10 with a waist circumference of 36 inches. Mr. Childers s goal weight for his next visit will be 180 pounds. Again, Mr. Childers has d one an excellent job at weight loss and maintaining his weight loss. He will co ntinue to maintain his current weight loss and work on an additional 5 to 10 jayne nds of weight loss. Next Preventive Visit: In 4 Months We will apprise you of the above test results and further recommendations as the y are available. Thank you for allowing us to participate in the care of this nice patient. Pleas e do not hesitate to call should you have questions or concerns. Sincerely, Gita Whitaker RN, MANFRED, LICENSED VETERINARY TECHNICIAN-C Supervising physician available for consultation is: Richard Carbone M.D. cc: CARL CHILDERS [address] [place] [address] Shade Pérez MD [facility] [address] [address] FAX: F: 10/23/2011 documented in this encounter Plan of Treatment Not on filedocumented as of this encounter Visit Diagnoses Not on filedocumented in this encounter
--- OUTSIDE RECORDS SUMMARY | 2019-09-14 20:42 | XMS REPORT | Encounter Summary ---
Author Author [facility] Organization [facility] Address Unknown Phone Unavailable Care Team Providers Care Sales Representative Facility Services Name Role Phone PCP Unavailable Encounter Details Care Team Description Date Type Department Richard Freeman MD [address] [facility] [address] [place], [place] [id number] Iza Montoya RN ANP no forwarding address [facility] [address] [place] [address] Social History Date Tobacco Use Types Packs/Day [...] Associated Diag nosis VITAMIN D, 25-HYDROXY Routine 06/10/2011 7:05 PM CDT documented in this encounter Results * Vitamin D, 25-Hydroxy (06/10/2011 7:05 PM CDT) Vitamin D <5 NG/ML SUNQUEST 25-Hydroxy D2 Vitamin D 33 NG/ML SUNQUEST 25-Hydroxy D3 Vitamin D 33 25 - 80 NG/ML SUNQUEST 25-Hydroxy Comment: Test performed by [facility] [address] [place] [id number] Specimen Blood Performing Organization Address City/State/Zipcode Ph one Number RL [address] [place], [place] [address] SUNQUEST documented in this encounter Visit Diagnoses Not on filedocumented in this encounter
--- OUTSIDE RECORDS SUMMARY | 2019-09-14 20:42 | XMS REPORT | Encounter Summary ---
Author Author [facility] Address Unknown Phone Unavailable Care Team Providers Care House Builder Name Role Phone Charmaine Black PCP Encounter Details Care Team Description Date Type Department 05/14/2011 [facility] Social History Date Tobacco Use Types Packs/Day Years Used Never Assessed Sex Assigned at Date Recorded Not on file Industry Job Start Date Occupation Not on file Not on file Not on file Travel End Travel History Travel Start No recent travel history available. documented as of this encounter Progress Notes * Provider, MD Luc - 05/14/2011 10:57 AM RN CARDIOVASCULAR ICU DIABETES EDUCATION NOTE: Carl attended the Annual Follow Up class for DSMT. He continues to be very disciplined in his efforts to maintain blood sugars in goal range. Documentation provided for your record. Thank you. Electronically signed by:Melissa CASTAÑEDA May 14 2011 10:59AM LILLIE Author documented in this encounter Plan of Treatment Not on filedocumented as of this encounter Visit Diagnoses Not on filedocumented in this encounter
--- OUTSIDE RECORDS SUMMARY | 2019-09-14 20:42 | XMS REPORT | Encounter Summary ---
Author Author [facility] Organization [facility] Address Unknown Phone Unavailable Care Team Providers Care Software Applications Developer Name Role Phone Benjie Montano PCP Encounter Details Care Team Description Date Type Department Desiree Herrera MD [address] [facility] [address] [place] [phone] 10/28/2010 [facility] Note [facility] Special[facility] - [place] [address] [facility] [address] [place] [phone] Social History Date Tobacco Use Types Packs/Day Years Used Never Assessed Sex Assigned at Date Recorded Not on file Industry Job Start Date Occupation Not on file Not on file Not on file Travel End Travel History Travel Start No recent travel history available. documented as of this encounter Miscellaneous Notes * Miscellaneous - Desiree Herrera MD - 10/28/2010 1:56 PM CDT Verified Results Collected/Examined: Oct 27, 2010 12:04PM Test Result Flag Acceptable CMP-Comprehensive Metabolic Panel Albumin 4.4 g/dL 3.5-5.0 Aspartate Aminotransferase 24 IU/L 15-41 Alanine Aminotransferase 24 IU/L 14-63 Bilirubin Total 1.4 mg/dL 0.3-1.4 Protein Total Serum 6.7 g/dL 6.0-8.0 Calcium 9.9 mg/dL 8.8-10.5 Creatinine 1.1 mg/dL 0.6-1.3 Glucose 114 mg/dL H 65-100 Alkaline Phosphatase 61 IU/L 42-128 Sodium 140 MEQ/L 134-144 Potassium 4.2 MEQ/L 3.5-5.1 Chloride 103 MEQ/L 101-111 Anion Gap 8 3-15 Blood Urea Nitrogen 25 mg/dL 8-26 Carbon Dioxide 29 MEQ/L 23-32 Gfrm Aa 79 Chronic Kidney Disease less than 60 mL/min/1.73 sq.m Kidney failure less than 15 mL/min/1.73 sq.m Gfrm Non Aa 65 Chronic Kidney Disease less than 60 mL/min/1.73 sq.m Kidney failure less than 15 mL/min/1.73 sq.m Lipid Profile Cholesterol Lipid Prof 132 mg/dL 100-200 Triglycerides 96 mg/dL 0-150 Hdl 40 mg/dL 40-110 Ldl Cholesterol 73 mg/dL 0-99 Total Cholesterol/Hdl Ratio 3.3 0.0-4.5 Non- HDL Cholesterol 92 mg/dL 0-130 Microalbumin Urine Hank Microalbumin Mg/L <0.20 mg/dL Creatinine, Urine Random Quant 98.6 mg/dL Microalbumin/Creatinine Ratio Not Calc ug/mg 0.00-16.00 Result is outside linear range. Calculation cannot be performed Discussion/Summary Carl, Your labs were normal. Please continue current therapy as recommended at appoint ment. Any questions, please call. [phone] KIMANI Fernandez * Miscellaneous - Desiree Herrera MD - 10/28/2010 1:56 PM CDT Verified Results Collected/Examined: Oct 27, 2010 12:04PM Test Result Flag Acceptable CMP-Comprehensive Metabolic Panel [Oct 28, 2010 1:56PM DESIREE HERRERA] Kidney function stable. LFTs are normal. Electrolytes are normal, and glucose re asonable. Lipids at goal. Continue current therapy as recommended at appointment . Albumin 4.4 g/dL 3.5-5.0 Aspartate Aminotransferase 24 IU/L 15-41 Alanine Aminotransferase 24 IU/L 14-63 Bilirubin Total 1.4 mg/dL 0.3-1.4 Protein Total Serum 6.7 g/dL 6.0-8.0 Calcium 9.9 mg/dL 8.8-10.5 Creatinine 1.1 mg/dL 0.6-1.3 Glucose 114 mg/dL H 65-100 Alkaline Phosphatase 61 IU/L 42-128 Sodium 140 MEQ/L 134-144 Potassium 4.2 MEQ/L 3.5-5.1 Chloride 103 MEQ/L 101-111 Anion Gap 8 3-15 Blood Urea Nitrogen 25 mg/dL 8-26 Carbon Dioxide 29 MEQ/L 23-32 Gfrm Aa 79 Chronic Kidney Disease less than 60 mL/min/1.73 sq.m Kidney failure less than 15 mL/min/1.73 sq.m Gfrm Non Aa 65 Chronic Kidney Disease less than 60 mL/min/1.73 sq.m Kidney failure less than 15 mL/min/1.73 sq.m Lipid Profile [Oct 28, 2010 1:56PM DESIREE HERRERA] Kidney function stable. LFTs are normal. Electrolytes are normal, and glucose re asonable. Lipids at goal. Continue current therapy as recommended at appointment . Cholesterol Lipid Prof 132 mg/dL 100-200 Triglycerides 96 mg/dL 0-150 Hdl 40 mg/dL 40-110 Ldl Cholesterol 73 mg/dL 0-99 Total Cholesterol/Hdl Ratio 3.3 0.0-4.5 Non- HDL Cholesterol 92 mg/dL 0-130 Microalbumin Urine Hank [Oct 28, 2010 1:56PM DESIREE HERRERA] Kidney function stable. LFTs are normal. Electrolytes are normal, and glucose re asonable. Lipids at goal. Continue current therapy as recommended at appointment . Microalbumin Mg/L <0.20 mg/dL Creatinine, Urine Random Quant 98.6 mg/dL Microalbumin/Creatinine Ratio Not Calc ug/mg 0.00-16.00 Result is outside linear range. Calculation cannot be performed Discussion/Summary Carl, Your labs were normal. Please continue current therapy as recommended at appoint ment. Any questions, please call. [phone] KIMANI Fernandez documented in this encounter Plan of Treatment Not on filedocumented as of this encounter Visit Diagnoses Not on filedocumented in this encounter
--- OUTSIDE RECORDS SUMMARY | 2019-09-14 20:42 | XMS REPORT | Encounter Summary ---
Author Author [facility] Organization [facility] Address Unknown Phone Unavailable Care Team Providers Care Mate Ship Name Role Phone Charmaine Black PCP Encounter Details Care Team Description Date Type Department Richard Freeman MD [address] [facility] [address] [place] [address] [phone] 02/22/2011 [facility] [...]
--- OUTSIDE RECORDS SUMMARY | 2019-09-14 20:42 | XMS REPORT | Encounter Summary ---
Author Author [facility] Organization [facility] Address Unknown Phone Unavailable Care Team Providers Care Horse Show Judge Name Role Phone Ananth Black PCP Encounter Details Care Team Description Date Type Department Stephania Whitaker RN FNP- [address] [place] [address] 03/05/2011 [facility] Visit Social History Date Tobacco Use Types Packs/Day Years Used Never Assessed Sex Assigned at Date Recorded Not on file Industry Job Start Date Occupation Not on file Not on file Not on file Travel End Travel History Travel Start No recent travel history available. documented as of this encounter Progress Notes * Stephania Whitaker RN FNP-MANFRED - 03/05/2011 3:36 PM [facility] Office [address] [place] [address] 03/09/2011 ANANTH BLACK MD [address] [place] [place] [address] Re: CARL LISETH : 1935 Chart#: [id number] Dear Dr. BLACK: This is a followup note regarding CARL LISETH. He has completed his laboratory testing and I am writing to share the results with you. He had the following tests: Free T4: 02/22/2011 :T4 Free - T4 Free: 1.0 ng/dL (0.8-2.2) TSH: 02/22/2011 :Thyroid Stimulating Hormone - Thyroid Stimulating Hormone: 0.59 uIU/mL (0.47-4.68) Platelets: 02/22/2011 :Platelet - Platelet Count: 121 L TH/uL (140-400) 25 - OH Vit : not assessed, speciman not avaliable Based on the above, I am recommending the following: - Follow up with you regarding persistently low platelet cound - continue medical treatment - continued compliance with risk factor modification Follow up is requested as planned. These test results along with my recommendations have been communicated to CARL CHILDERS. I hope this information is useful to you. If you should have any quest ions or concerns, please do not hesitate to contact me. Sincerely, Gita Whitaker RN, BC, SIGNAL MAINTAINER-C cc: Carl Childers ECTOR SALVAGE documented in this encounter Plan of Treatment Not on filedocumented as of this encounter Visit Diagnoses Not on filedocumented in this encounter
--- OUTSIDE RECORDS SUMMARY | 2019-09-14 20:42 | XMS REPORT | Encounter Summary ---
Author Author [facility] Organization [facility] Address Unknown Phone Unavailable Care Team Providers Care Can Top Setter Name Role Phone Charmaine Black PCP Encounter Details Care Team Description Date Type Department Stephania Whitaker RN BOILER INSTALLER- [address] [place] [address] 12/10/2010 [facility] - [facility] HISTORIC CLINI C Visit Social [...]
--- OUTSIDE RECORDS SUMMARY | 2019-09-14 20:42 | XMS REPORT | Encounter Summary ---
Author Author [facility] Organization [facility] Address Unknown Phone Unavailable Care Team Providers Care Cleaning Team Member Name Role Phone Benjie Montano PCP Encounter Details Care Team Description Date Type Department Desiree Herrera MD [address] [facility] [address] [place] [phone] 05/04/2011 [facility] Note [facility] Endocr[facility]ology Specialists - [place] [address] [facility] [address] [place] [address] Social History Date Tobacco Use Types Packs/Day Years Used Never Assessed Sex Assigned at Date Recorded Not on file Industry Job Start Date Occupation Not on file Not on file Not on file Travel End Travel History Travel Start No recent travel history available. documented as of this encounter Miscellaneous Notes * Miscellaneous - Desiree Herrera MD - 05/04/2011 11:20 AM METAL CASKET MAKER Verified Results Collected/Examined: May 04, 2011 12:04PM Test Result Flag Acceptable CMP-Comprehensive Metabolic Panel Albumin 4.4 g/dL 3.5-5.0 Aspartate Aminotransferase 29 [...] Kidney failure less than 15 mL/min/1.73 sq.m^^ Lipid Profile Cholesterol Lipid Prof 139 mg/dL 100-200 Triglycerides 88 mg/dL 0-150 Hdl 44 mg/dL 40-110 Ldl Cholesterol 77 mg/dL 0-99 Total Cholesterol/Hdl Ratio 3.2 0.0-4.5 Non- HDL Cholesterol 95 mg/dL 0-130 Discussion/Summary Carl, Your labs came back normal. No changes at this time. Continue any recommendation s made at your last appointment. Call with any questions. [phone] KIMANI Fernandez L CASKET MAKER * Miscellaneous - Desiree Herrera MD - 05/04/2011 11:20 AM METAL CASKET MAKER Verified Results Collected/Examined: May 04, 2011 12:04PM Test Result Flag Acceptable CMP-Comprehensive Metabolic Panel [May 04, 2011 5:46PM DESIREE HERRERA] CMP and lipids look reasonable. Continue current therapy/recommendations made at appointment. Albumin 4.4 g/dL 3.5-5.0 Aspartate Aminotransferase 29 [...] Kidney failure less than 15 mL/min/1.73 sq.m^^ Lipid Profile [May 04, 2011 5:46PM DESIREE HERRERA] CMP and lipids look reasonable. Continue current therapy/recommendations made at appointment. Cholesterol Lipid Prof 139 mg/dL 100-200 Triglycerides 88 mg/dL 0-150 Hdl 44 mg/dL 40-110 Ldl Cholesterol 77 mg/dL 0-99 Total Cholesterol/Hdl Ratio 3.2 0.0-4.5 Non- HDL Cholesterol 95 mg/dL 0-130 Discussion/Summary Calr, Your labs came back normal. No changes at this time. Continue any recommendation s made at your last appointment. Call with any questions. [phone] KIMANI Fernandez L CASKET MAKER documented in this encounter Plan of Treatment Not on filedocumented as of this encounter Visit Diagnoses Not on filedocumented in this encounter
--- OUTSIDE RECORDS SUMMARY | 2019-09-14 20:42 | XMS REPORT | Encounter Summary ---
Author Author [facility] Organization [facility] Address Unknown Phone Unavailable Care Team Providers Care Payroll Supervisor Name Role Phone PCP Unavailable Encounter Details Care Team Description Date Type Department Shade Pérez MD [address] [phone] 05/04/2011 [facility] Encounter [address] [place] [address] Social History Date Tobacco Use Types Packs/Day [...] oral route every 6 hours as needed 10/20/2010 10/09/2014 amino acids-whey pro con 2 [...] Date/Time Associated Diag nosis LIPID PANEL Routine 05/04/2011 12:04 PM VP SECURITY COMPREHENSIVE METABOLIC Routine 05/04/2011 PANEL 12:04 PM VP SECURITY documented in this encounter Results * Comprehensive Metabolic Panel (05/04/2011 12:04 PM VP SECURITY) Albumin 4.4 3.5 - 5.0 G/DL SUNQUEST Aspartate 29 15 - 46 IU/L SUNQUEST Aminotransferas e Bilirubin Total 0.9 0.2 - 1.3 MG/DL SUNQUEST Protein Total 7.0 6.0 - 8.2 G/DL SUNQUEST Serum Calcium 9.6 8.4 - 10.2 MG/DL SUNQUEST Creatinine 1.0 0.6 - 1.3 MG/DL SUNQUEST Glucose 102 (H) 70 - 100 MG/DL SUNQUEST Alkaline 60 42 - 128 IU/L SUNQUEST Phosphatase Sodium 141 133 - 147 MEQ/L SUNQUEST Potassium 4.4 3.5 - 5.1 MEQ/L SUNQUEST Chloride 101 96 - 112 MEQ/L SUNQUEST Carbon Dioxide 27 22 - 30 MEQ/L SUNQUEST Blood Urea 26 7 - 26 MG/DL SUNQUEST Nitrogen Anion Gap 13 3 - 15 SUNQUEST Alanine 33 13 - 69 IU/L SUNQUEST Aminotransferas e eGFR Male 72 SUNQUEST Non-AA Comment: Chronic Kidney Disease less than 60 mL/min/1.73 sq.m Kidney failure less than 15 mL/min/1.73 sq.m eGFR Male AA 88 SUNQUEST Comment: Chronic Kidney Disease less than 60 mL/min/1.73 sq.m Kidney failure less than 15 mL/min/1.73 sq.m Specimen Blood Performing Organization Address [facility] Ph one Number [facility] [address] [place], [place] [address] SUNQUEST * Lipid Panel (05/04/2011 12:04 PM VP SECURITY) Cholesterol 139 100 - 200 MG/DL SUNQUEST Triglycerides 88 0 - 150 MG/DL SUNQUEST HDL Cholesterol 44 40 - 110 MG/DL SUNQUEST LDL Cholesterol 77 0 - 99 MG/DL SUNQUEST Cholesterol/HDL 3.2 0.0 - 4.5 SUNQUEST Ratio Non-HDL 95 0 - 130 MG/DL SUNQUEST Cholesterol Specimen Blood Performing Organization Address [facility] Ph one Number [facility] [address] [place], [place] [address] SUNQUEST documented in this encounter Visit Diagnoses Not on filedocumented in this encounter
--- OUTSIDE RECORDS SUMMARY | 2019-09-14 20:42 | XMS REPORT | Encounter Summary ---
Author Author [facility] Organization [facility] Address Unknown Phone Unavailable Care Team Providers Care Surgical Resident Name Role Phone Charmaine Black PCP Encounter Details Care Team Description Date Type Department Desiree Herrera MD [address] [address] [phone] 05/04/2011 Hist-Appointmen [facility] END [facility] CL [...] Signs Reading Time Taken Comments Vital Sign 112/60 05/04/2011 11:43 AM [employer] Blood Pressure 80 05/04/2011 11:43 AM [employer] Pulse - - Temperature - - Respiratory Rate - - Oxygen Saturation - - Inhaled Oxygen Concentration 85.5 kg (188 lb 8 oz) 05/04/2011 11:43 AM [employer] Weight 172.7 cm (5' 8") 05/04/2011 11:43 AM [employer] Height 28.66 05/04/2011 11:43 AM [employer] Body Mass Index documented in this encounter Progress Notes * Desiree Herrera MD - 05/04/2011 11:20 AM [employer] History of Present Illness Diabetes-[facility]: The patient's visit is for a routine clinic follow-up of type 2 diabetes mellitu s (Dx'd 2009). The patient's last clinic visit was 6 month(s) ago. Management changes made at t he last visit include ordering CMP, lipids, and Ur MAB:Cr. Symptoms: no polydipsia, no polyuria, no increased appetite, no fatigue, no blur red vision and no episodes of hypoglycemia The patient presents with complaints of no weight loss. There is no known event that preceded symptom onset. Fasting blood sugars are generally. Lowest fasting blood sugar reading was 85. H ighest fasting blood sugar reading was 131. Pre-prandial blood sugars are genera lly. Lowest pre-prandial blood sugar reading was 81. Highest pre-prandial blood sugar reading was 121. Pertinent medical history: hypertension, coronary artery disease, peripheral vascular disease, carotid occlusive disease, hyperlipidemia and neuropathy, but no stroke, no tobacco abuse, no steroid therapy, no nephrop athy and no retinopathy. Risk factors: no obesity, no inactivity, no prolonged corticosteroid use and no use of psychotropic medications. Family history: diab etes mellitus type II, but no diabetes mellitus type I, no obesity and no premat ure coronary artery disease. (log for the last [...] (completed 3/3 classed in January 2010 at [facility] ), glucose monitoring [...] hypertension, coronary artery disease, peripheral vascular disease, hyperlipidemia and neuropathy (occa sional tingling in bilateral feet), but no cataract(s), no glaucoma, no steroid therapy, no nephropathy and no retinopathy. Risk factors: no obesity, no inacti vity, no prolonged corticosteroid use and no use of psychotropic medications. Fa rodriguez history: diabetes mellitus type II, but no diabetes mellitus type I, no ob esity and no premature coronary artery disease. Past evaluation has included hem oglobin A1c, metabolic panel, fasting lipid profile, urinalysis (last Ur MAB:Cr normal on 10/27/2010) and ophthalmology examination (Last exam was 01/05/[address] Blake Wen at [facility], , in [place], [place]). Past treatment has included diabetic teaching, glucose monitoring, aspirin, diet modification and exercise program. He was previously evaluated by me 6 month(s) ago. Current Meds 1. Aspirin EC 325 MG Oral Tablet Delayed Release; ONE TAB BY MOUTH DAILY; Therap y: 25Nov2009 to (Evaluate:25Dec2009); Last Rx:[id number] 2. Atorvastatin Calcium 40 MG Oral Tablet; Therapy: 09Jan2010 to (Evaluate:2011) 3. CardioTabs CardioDaily; TAKE 1 TABLET DAILY; Therapy: [id number] to (Evaluate: 25Dec2009); Last Rx:[id number] 4. CardioTabs [place] 3; TAKE 2 TABLETS BY MOUTH DAILY; Therapy: 35Lgd7904 to (Evaluate:31Vtf5457); Last Rx:[id number] 5. Metoprolol Succinate 25 MG Oral Tablet Extended Release 24 Hour; TAKE 1 TABLE T ONCE DAILY; Therapy: 43Pap5444 to (Evaluate:13Nov2009) 6. Omeprazole 20 MG Oral Capsule Delayed Release; Therapy: 14Oct2009 to 7. OneTouch FinePoint Lancets Miscellaneous; TEST TWICE DAILY; Therapy: 32Hic902 0 to (Evaluate:22Mar2012); Last Rx:[id number] 8. OneTouch Ultra Blue In Vitro Strip; TEST TWICE DAILY; Therapy: 53Nyk1226 to (Evaluate:22Mar2012); Last Rx:[id number] 9. Sertraline HCl 50 MG Oral Tablet; Therapy: 11Qcs3078 to 10. Vitamin D 1000 UNIT Oral Capsule; TAKE 2 CAPSULES BY MOUTH DAILY; Therapy: 1 4Hez5721 to (Renew:22Oct2011); Last Rx:[id number] Allergies No Known Drug Allergies Vitals Signs [Data Includes: Last 1 Day] 04May2011 11:43AM BMI Calculated: 28.57 BSA Calculated: 2 Height: 5 ft 8 in Weight: 188 lb 8 oz Systolic: 112, LUE, Sitting Diastolic: 60, LUE, Sitting Heart Rate: 80, L Radial Review of Systems A 10 point review of systems was reviewed with patient and was otherwise negati ve, unless noted as positive above in the history of present illness. Active Problems Problems 1. Anxiety (Symptom) 300.00 2. Benign [...] 22. Vitamin D Deficiency 268.9 Surgical History Problems 1. History of Appendectomy 2. 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 History of Partial Colectomy Family History Problems 1. Family history of Coronary Artery Disease 2. Family history of Dementia 3. Family history of Stroke Syndrome V17.1 4. Family history of Type 2 Diabetes Mellitus Social History Problems Being A Social Drinker has 2-3 beers a week Exercising Regularly Never A Smoker Uses Safety Equipment - Seatbelts Denied History of Current Smoker Physical Exam General: Patient is a pleasant and cooperative gentleman, who is ot herwise in no apparent distress. Psych: Patient is [...] was normal. The right toes were normal. Capillary refills were no rmal in the right toes. Pulse is 1 in the dorsalis pedis of the right foot. The left foot was normal. The left toes were normal. Capillary refill: normal in the left toes. Pulse is 1 in the dorsalis pedis [...] normal and number 10 was normal. Results/Data Results [Data Includes: Current Encounter] [id number] 11:47AM Glucose Finger Stick Glucose Finger Stick: 115 Abnormal 51Gsk2636 11:45AM Hemoglobin A1C Finger Stick Hemoglobin A1C Finger Stick: 5.9 Results 33Iki9810 12:04PM CMP-Comprehensive Metabolic Panel Kidney function stable. LFTs are normal. Electrolytes are normal, and glucose re asonable. Lipids at goal. Continue current therapy as recommended at appointment . Glucose: 114 mg/dL Abnormal High Reference Range 65-100 Sodium: 140 MEQ/L Reference Range 134-144 Potassium: 4.2 MEQ/L Reference Range 3.5-5.1 Chloride: 103 MEQ/L Reference Range 101-111 Carbon Dioxide: 29 MEQ/L Reference Range 23-32 Anion Gap: 8 Reference Range 3-15 Calcium: 9.9 mg/dL Reference Range 8.8-10.5 Protein Total Serum: 6.7 g/dL Reference Range 6.0-8.0 Albumin: 4.4 g/dL Reference Range 3.5-5.0 Alkaline Phosphatase: 61 IU/L Reference Range 42-128 Alanine Aminotransferase: 24 IU/L Reference Range 14-63 Aspartate Aminotransferase: 24 IU/L Reference Range 15-41 Bilirubin Total: 1.4 mg/dL Reference Range 0.3-1.4 Blood Urea Nitrogen: 25 mg/dL Reference Range 8-26 Creatinine: 1.1 mg/dL Reference Range 0.6-1.3 Gfrm Aa: 79 Gfrm Non Aa: 65 Lipid Profile Kidney function stable. LFTs are normal. Electrolytes are normal, and glucose re asonable. Lipids at goal. Continue current therapy as recommended at appointment . Cholesterol Lipid Prof: 132 mg/dL Reference Range 100-200 Hdl: 40 mg/dL Reference Range 40-110 Non- HDL Cholesterol: 92 mg/dL Reference Range 0-130 Triglycerides: 96 mg/dL Reference Range 0-150 Ldl Cholesterol: 73 mg/dL Reference Range 0-99 Total Cholesterol/Hdl Ratio: 3.3 Reference Range 0.0-4.5 Microalbumin Urine Hank Kidney function stable. LFTs are normal. Electrolytes are normal, and glucose re asonable. Lipids at goal. Continue current therapy as recommended at appointment . Creatinine, Urine Random Quant: 98.6 mg/dL Microalbumin Mg/L: <0.20 mg/dL Microalbumin/Creatinine Ratio: Not Calc ug/mg Reference Range 0.00-16.00 Assessment 1. Type 2 Diabetes Mellitus With Complication 250.90 Plan Type 2 Diabetes Mellitus With Complication (250.90) 1. Hemoglobin A1C Finger Stick Done: 04May2011 11:45AM Ordered; For: Type 2 Diabetes Mellitus With Complication (250.90); Ordered By: DESIREE JOHNSON Performed: In Office Due: 09May2011 1. Diabetes mellitus 2. Complicated by peripheral neuropathy, which is only intermittently and mildly symptomatic. Controlled as evidence by his A1c of 5.9 % today, as well as review of his glucose log. Patient should continue current therapeutic lifestyle changes, including diet and exercise, for treatment. He c an decrease glucose monitoring to 3-4 times per week prior to breakfast, and 3-4 times per week prior to supper. As long as fasting levels remain generally bel ow 120, and nonfasting, presupper levels remain generally below 140, he can 6 mo n return to clinic for followup in 6 months. His urine MAB:Cr ratio and eye exa m are up-to-date. I will update renal function today. 2. Dyslipidemia. Lipids have been reasonably controlled. I will update lipids and LFTs today. I will continue Lipitor 40 mg daily for now, but adjust therapy if necessary. 3. Hypertension. Blood pressure is at goal. I recommend he continue current t herapy. CC: Charmaine Black M.D. Olman Holloway M.D. Signatures Electronically signed by : DESIREE HERRERA M.D.; May 04 2011 12:39PM (Author) [employer] documented in this encounter Plan of Treatment Not on filedocumented as of this encounter Procedures Comments Procedure Name Priority Date/Time Associated Diag nosis GLUCOSE POC Routine 05/04/2011 11:47 AM [employer] POCT GLYCOSYLATED Routine 05/04/2011 HEMOGLOBIN (HGB A1C) 11:45 AM [employer] documented in this encounter Results * GLUCOSE POC (05/04/2011 11:47 AM [employer]) Glucose, 115 (A) 0 OFFICE ENTERED Fingerstick Specimen Performing Organization Address [facility] one Number OFFICE ENTERED * POCT glycosylated hemoglobin (Hb A1C) (05/04/2011 11:45 AM [employer]) Hemoglobin A1c 5.9 0 OFFICE ENTERED Finger Stick Specimen Performing Organization Address [facility] one Number OFFICE ENTERED documented in this encounter Visit Diagnoses Not on filedocumented in this encounter
--- OUTSIDE RECORDS SUMMARY | 2019-09-14 20:42 | XMS REPORT | Encounter Summary ---
Author Author [facility] Organization [facility] Address Unknown Phone Unavailable Care Team Providers Care Printing Supervisor Name Role Phone Charmaine Black PCP Encounter Details Care Team Description Date Type Department Stephania Whitaker RN FACING MACHINE OPERATOR- [address] [place] [address] 11/25/2010 [facility] - Hist [facility] Visit Social [...]
--- OUTSIDE RECORDS SUMMARY | 2019-09-14 20:42 | XMS REPORT | Encounter Summary ---
Author Author [facility] Organization [facility] Address Unknown Phone Unavailable Care Team Providers Care Poultry Packer Name Role Phone Charmaine Black PCP Encounter Details Care Team Description Date Type Department Desiree Herrera MD [address] [address] [phone] 10/27/2010 Hist-Appointmen [facility] DI[facility] END [facility] CL [...] Reading Time Taken Comments Vital Sign 140/70 10/27/2010 11:17 AM CDT Blood Pressure 76 10/27/2010 11:17 AM CDT Pulse - - Temperature - - Respiratory Rate - - Oxygen Saturation - - Inhaled Oxygen Concentration 83.9 kg (185 lb) 10/27/2010 11:17 AM CDT Weight 172.7 cm (5' 8") 10/27/2010 11:17 AM CDT Height 28.13 10/27/2010 11:17 AM CDT Body Mass Index documented in this encounter Progress Notes * Desiree Herrera MD - 10/27/2010 11:20 AM CDT History of Present Illness [...] hypoglycemia The patient presents with complaints of weight loss (intentional). There is no k nown event that preceded symptom onset. Patient reports doing home measurements 2 time(s) per day. Fasting blood sugars are generally. Lowest fasting blood sugar reading was 103. Highest fasting blood sugar reading was 133. Pre-prandial blood sugars are generally. Lowest pre-pran dial blood sugar reading was 80. Highest pre-prandial blood sugar reading was 13 5. Bed time blood sugars are generally. Lowest bed time blood sugar reading was 101. Highest bed time blood sugar reading was 126. Pertinent medical history: h ypertension, coronary artery disease, peripheral vascular disease, steroid thera py (recent steroid injection in left knee end of March 2009), hyperlipidemia a nd neuropathy, but no nephropathy and no retinopathy. Risk factors: obesity, but no inactivity and no prolonged corticosteroid use. Family history: diabetes jasmin litus type II and premature coronary artery disease, but no obesity. (Glucose lo g for last 3 wks reviewed) Associated symptoms: appetite not increased, no anorexia, no nausea, no abdomina l pain, no vomiting, no abnormal healing and no confusion. The patient is due fo r a hemoglobin A1C. Current treatment includes: aspirin (325 mg daily) and Lipit or 40 mg daily; FO 3000 mg daily; Niaspan 750 mg daily. Current treatment also i ncludes diabetic teaching (completed 3/3 classed in January 2010 at [facility]) , glucose monitoring (One Touch Ultra), regular exercise (30 min stationary bike daily + weights and treadmill 3 days/wk) and diabetic diet (eats 3 meals/day wi th occasional afternoon snack). Patient is counting carbs and reports eating 45 carbs per meal. By report, there is good compliance with treatment, good toleran ce of treatment and good symptom control. Pertinent medical history: hypertensi on, coronary artery disease, peripheral vascular disease, carotid occlusive dise ase, hyperlipidemia and neuropathy, but no stroke, no tobacco abuse, no steroid therapy, no nephropathy and no [...] profile, urinalysis (last Ur MAB:Cr normal on 10/14/2009) and ophthalmology examination (Last exam was 12/16/2009 wit trevon Wen in [place], [place]). Past treatment has included diabetic teaching, gluco se monitoring, aspirin, diet modification and exercise program. He was previousl y evaluated by me 6 month(s) ago. Current Meds 1. Aspirin EC 325 MG Oral Tablet Delayed Release; ONE TAB BY MOUTH DAILY; Therap y: 25Nov2009 to (Evaluate:25Dec2009); Last Rx:25Nov2009 2. CardioTabs CardioDaily; TAKE 1 TABLET DAILY; Therapy: 25Nov2009 to (Evaluate: 25Dec2009); Last Rx:25Nov2009 3. Lipitor 40 MG Oral Tablet; Therapy: 09Jan2010 to 4. Metoprolol Succinate 25 MG Oral Tablet Extended Release 24 Hour; TAKE 1 TABLE T ONCE DAILY; Therapy: 14Oct2009 to (Evaluate:13Nov2009) 5. Niaspan 750 MG Oral Tablet Extended Release; TAKE ONE TABLET AT BEDTIME; Ther apy: 91Byx8802 to 6. OneTouch FinePoint Lancets Miscellaneous; TEST TWICE DAILY; Therapy: 0 to (Evaluate:22Mar2012); Last Rx:[id number] 7. OneTouch Ultra Blue In Vitro Strip; TEST TWICE DAILY; Therapy: 43Axa2937 to (Evaluate:22Mar2012); Last Rx:[id number] 8. PriLOSEC 20 MG Oral Capsule Delayed Release; Therapy: 14Oct2009 to 9. Sertraline HCl 50 MG Oral Tablet; Therapy: 14Oct2009 to Allergies No Known Drug Allergies Vitals Signs [Data Includes: Last 1 Day] 27Oct2010 11:17AM BMI Calculated: 28.04 BSA Calculated: 1.98 Height: 5 ft 8 in Weight: 185 lb Systolic: 140 Diastolic: 70 Heart Rate: 76 Review of Systems A 10 point review [...] 414.00 s/p 4 vv CABG 09/02/07 7. Depression 311 8. Diabetic Peripheral Neuropathy 357.2 9. Diverticulosis 562.10 10. Dyslipidemia 272.4 11. 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 Hypertension 401.9 13. Male Erectile Disorder 302.72 14. Obesity 278.00 15. Obstructive Sleep Apnea 327.23 16. Osteoarthrosis 715.90 17. Peripheral Vascular Disease 443.9 18. 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 Squamous Cell Carcinoma Of The Skin 173.9 s/p resection 20. Type II Diabetes Mellitus With Complication 250.90 21. Vitamin D Deficiency 268.9 Surgical History Problems 1. History of Appendectomy 2. History of Coronary Artery Bypass Graft (CABG) V45.81 3. History of Partial Colectomy Family History Problems 1. Family history of Coronary Artery Disease 2. Family history of Dementia 3. Family history of Stroke Syndrome V17.1 4. Family history of Type II Diabetes Mellitus Social History Problems Being A Social Drinker has 2-3 beers a week Exercising Regularly Uses Safety Equipment - Seatbelts Denied History of Smoking Physical Exam General: Patient is a pleasant and cooperative gentleman, who is othe rwise in no apparent distress. Psych: Patient is [...] normal. Results/Data Results [Data Includes: Current Encounter] [id number] 11:25AM Hemoglobin A1C Finger Stick Hemoglobin A1C Finger Stick: 5.7 54Hea3582 11:22AM Glucose Finger Stick Glucose Finger Stick: 121 Results [id number] 02:50PM CMP-Comprehensive Metabolic Panel LFTs normal. Kidney function stable. Continue recommendations made at [facility] t. Albumin: 4.1 g/dL Reference Range 3.5-5.0 Aspartate Aminotransferase: 23 IU/L Reference Range 15-41 Alanine Aminotransferase: 29 IU/L Reference Range 14-63 Bilirubin Total: 1.1 mg/dL Reference Range 0.3-1.4 Protein Total Serum: 6.3 g/dL Reference Range 6.0-8.0 Calcium: 9.5 mg/dL Reference Range 8.8-10.5 Creatinine: 1.0 mg/dL Reference Range 0.6-1.3 Glucose: 107 mg/dL Abnormal High Reference Range 65-100 Alkaline Phosphatase: 66 IU/L Reference Range 42-128 Sodium: 139 MEQ/L Reference Range 134-144 Potassium: 3.9 MEQ/L Reference Range 3.5-5.1 Chloride: 104 MEQ/L Reference Range 101-111 Anion Gap: 6 Reference Range 3-15 Blood Urea Nitrogen: 28 mg/dL Abnormal High Reference Range 8-26 Carbon Dioxide: 29 MEQ/L Reference Range 23-32 Gfrm Aa: 88 Gfrm Non Aa: 73 [id number] 02:46PM Normal. Cont recs made at [facility]. Albumin: 4.4 g/dL Reference Range 3.5-5.0 Aspartate Aminotransferase: 28 IU/L Reference Range 15-41 Alanine Aminotransferase: 29 IU/L Reference Range 14-63 Bilirubin Total: 0.9 mg/dL Reference Range 0.3-1.4 Protein Total Serum: 6.5 g/dL Reference Range 6.0-8.0 Calcium: 9.6 mg/dL Reference Range 8.8-10.5 Creatinine: 1.0 mg/dL Reference Range 0.6-1.3 Glucose: 116 mg/dL Abnormal High Reference Range 65-100 Alkaline Phosphatase: 59 IU/L Reference Range 42-128 Sodium: 139 MEQ/L Reference Range 134-144 Potassium: 4.1 MEQ/L Reference Range 3.5-5.1 Chloride: 103 MEQ/L Reference Range 101-111 Anion Gap: 7 Reference Range 3-15 Blood Urea Nitrogen: 28 mg/dL Abnormal High Reference Range 8-26 Carbon Dioxide: 29 MEQ/L Reference Range 23-32 Gfrm Aa: 88 Gfrm Non Aa: 73 [id number] 05:40PM Microalbumin Urine Hank Nml. Neg Ur MAB:Cr. Continue recs made in clinic. Microalbumin Mg/L: 0.24 mg/dL Creatinine, Urine Random Quant: 76.1 mg/dL Microalbumin/Creatinine Ratio: 3.15 ug/mg Reference Range 0.00-16.00 10/20/2010: Total cholesterol 125, triglycerides 92, HDL 34, LDL 73, AST 32, AL T 28, A1c 6.2 % 06/07/2010: Total cholesterol 117, triglycerides 103 HDL 40, LDL 56, AST 21, ALT 40 02/12/2010: AST 20, ALT 23, glucose 131, total cholesterol 118, triglyceride 91, HDL 52, LDL 48 (per dictation from [facility] [employer] office which patient had on his person in clinic today) Assessment 1. Type II Diabetes Mellitus With Complication 250.90 2. Diabetic Peripheral Neuropathy 357.2 3. Dyslipidemia 272.4 4. Hypertension 401.9 Plan Dyslipidemia (272.4) 1. CardioTabs [place] 3; TAKE 2 TABLETS BY MOUTH DAILY; Therapy: 93Exy2957 to (Evaluate:84Qxf0809); Last Rx:[id number] Ordered; For: Dyslipidemia (272.4); Rx By: DESIREE HERRERA; Dispense: 30 Days ; #:6 0; Refill: 0; Record 2. Niaspan 1000 MG Oral Tablet Extended Release; TAKE 1 TABLET DAILY AT BEDTIME; Therapy: [id number] to 27Oct2010; Last Rx:25Nov2009; Status: DISCONTINUED Ordered; For: Dyslipidemia (272.4); Rx By: DESIREE HERRERA; Dispense: 90 Days ; #:9 0 TBCR; Refill: 3; Record; Last Updated By: Millie Stauffer Unlinked 3. Chlorhexidine Gluconate 0.12 % Mouth/Throat Solution; Therapy: 20Faf4589-05He g2; Status: DISCONTINUED Recorded; Rx By: SANA,; Dispense: 30 Days ; #:255 SOLN; Refill: 0; RICHARD; [address]; Last Updated By: DESIREE HERRERA 4. Zocor 80 MG Oral Tablet; Therapy: 86Nny7407-12Tjg6805; Status: DISCONTINUED Recorded; Dispense: 0 Days ; #: Sufficient TABS; Refill: 0; Record; Last Updated By: DESIREE HERRERA Vitamin D Deficiency (268.9) 5. Vitamin D 1000 UNIT Oral Capsule; TAKE 2 CAPSULES BY MOUTH DAILY; Therapy: to (Renew:22Oct2011); Last Rx:[id number] Ordered; For: Vitamin D Deficiency (268.9); Rx By: DESIREE HERRERA; Dispense: 30 Da ys ; #:60 Capsule; Refill: 11; Record 1. Diabetes mellitus 2. Complicated by peripheral neuropathy, which is param rashid a symptomatic. Controlled as evidence by his A1c of 5.7% today. His elizabeth ruiz A1c was slightly higher last week at 6.2%. Regardless, both levels are goa l. Patient should continue current treatment with diet and exercise. He can de crease glucose monitoring to 3-4 times per week prior to breakfast. As long as levels remain generally below 120, can followup with me in clinic in 6 months. I will update a urine microalbumin:creatinine ratio, as well as renal function t florencia. 2. Dyslipidemia. Lipids are reasonably controlled. Continue current therapy. 3. Hypertension. Blood pressure is slightly above goal. He should continue cu rrent therapy and keep followup with cardiology. CC: Charmaine Black M.D. Olman Holloway M.D. Signatures Electronically signed by : DESIREE HERRERA M.D.; Oct 27 2010 12:36PM (Author) documented in this encounter Plan of Treatment Not on filedocumented as of this encounter Procedures Comments Procedure Name Priority Date/Time Associated Diag nosis POCT GLYCOSYLATED Routine 10/27/2010 HEMOGLOBIN (HGB A1C) 11:25 AM CDT GLUCOSE POC Routine 10/27/2010 11:22 AM CDT documented in this encounter Results * POCT glycosylated hemoglobin (Hb A1C) (10/27/2010 11:25 AM CDT) Hemoglobin A1c 5.7 0 OFFICE ENTERED Finger Stick Specimen Performing Organization Address [facility] Ph one Number OFFICE ENTERED * GLUCOSE POC (10/27/2010 11:22 AM CDT) Glucose, 121 0 OFFICE ENTERED Fingerstick Specimen Performing Organization Address [facility] Ph one Number OFFICE ENTERED documented in this encounter Visit Diagnoses Not on filedocumented in this encounter
--- OUTSIDE RECORDS SUMMARY | 2019-09-14 20:42 | XMS REPORT | Encounter Summary ---
Author Author [facility] Organization [facility] Address Unknown Phone Unavailable Care Team Providers Care Chili Powder Mixer Name Role Phone Charmaine Black PCP Encounter Details Care Team Description Date Type Department Stephania Whitaker RN ELECTRICAL LOGGER-BC [address] [place] [address] 02/22/2011 [facility] [...] Signs Reading Time Taken Comments Vital Sign 120/68 02/22/2011 12:12 PM NURSING TECHNICIAN Blood Pressure 62 02/22/2011 12:12 PM NURSING TECHNICIAN Pulse - - Temperature - - Respiratory Rate - - Oxygen Saturation - - Inhaled Oxygen Concentration 86.7 kg (191 lb 3.2 oz) 02/22/2011 12:12 PM NURSING TECHNICIAN overweight Weight 170.2 cm (5' 7") 02/22/2011 12:12 PM NURSING TECHNICIAN Height 29.95 02/22/2011 12:12 PM NURSING TECHNICIAN Body Mass Index documented in this encounter Progress Notes * Stephania Whitaker RN FNP-MANFRED - 02/22/2011 11:30 AM NURSING TECHNICIAN [place] Office [address] [place] [id number] February 22, 2011 CHARMAINE BLACK MD [address] [facility] [place] [address] RE: CARL CHILDERS : 1935 CHART #: [id number] Visit Provider: Gita Whitaker RN, BC, ELECTRICAL LOGGER-C Visit Location: [facility] I had the pleasure of seeing CARL CHILDERS in the [facility] for cardi ovascular risk reduction. He is 76 years of age and presents with the following chief complaints: dyslipidemia, hypertension, and coronary artery disease. Risk factors include: Male greater than 45 years old HDL less than 40 Obesity Diagnosed with Type 2 Hypertension Dyslipidemia Family hx (CAD < 60 Yo) Known history of coronary artery disease. Laboratory Results from today's visit are as follows: Date Collected: 02/22/2011 Fasting: Fasting Total Cholesterol: 141 HDL: 40 LDL: 80 Triglycerides: 105 Ratio: 3.52 Glucose 126 HbA1c 5.9 ALT 23 AST 27 Final Medications: Lipitor 80 Mg take 1 tablet (80MG) by oral route every day Cardio Tea two capsules by mouth daily with food Tylenol Extra Strength 500 Mg take tablet (500MG) by oral route every 6 hours as needed Whey Protein 25g-140/34 2 scoops of whey protein mixed with 1 cup soy milk daily Vitamin D 1000 Unit Take 2 tablets [...] Mg Take one tablet by mouth daily [place]-3 Fatty Acids Take two capsules by mouth [...] Diagnosed with Heart Disease. Cause of was [place] at age 61. Mother Diagnosed with Diabetes. Diagnosed with Dementia. Cause of was CV A at age 82. Brother Diagnosed with HTN Brother Cause of was CRF at age 67. Brother Cause of was CABG at age 71. Sister Cause of was CA at age 86. Social History: Marital Status: Children: 3 Occupation: Retired. Advance Directives: There are no advance directives. The patient has a living wi ll that was executed on 03/07/2007 Diet: Low fat/chol, Low salt Exercise: Regular . Cardio Rehab 1 hr x 3 day/wk, Circuit Clinical Orthoptist 20-30 min 3 x/wk, Stationary Bike 30 min daily, Elliptical 15-30 min 3 day/wk, Bicycle 2-3 day/wk weather permitting Smoking: Non-smoker Alcohol: Currently drinks 5 oz. of wine daily Caffeine: Caffeine use: 3 cups daily of coffee ROS: 12-point review of systems is negative with the following exceptions: Pulmonary: Daytime drowsiness, Sleep apnea Musculoskeletal/Dermatology: Arthralgias Physical Exam: Vital Signs The patient is 5ft 7in tall, and weighs 191.20lbs. The BMI is 29.90 . Blood pressure taken in the left arm is 120/68 mmHg in the sitting position. The pulse is 62. The rhythm is regular. Const The patient is an overweight male. Pulm The respiratory pattern is nonlabored. M/S The patient's gait is normal. Neuro/Psych The patient is alert and oriented to time, person and place. The pa tient's mood is normal. No aphasia is apparent by exam. Exercise: Rehab three times per week. Current Diet: Follows a low saturated fat diet Summary and Recommendations: 1. Known history of coronary artery disease. He is currently without anginal sy mptoms. He last saw our stripper color, Dr. Osmin Holloway, in September of 2010. Mr. Traci robles will continue with annual appointments with our stripper color or sooner, if deemed necessary, for a complete exam and further recommendations. 2. Dyslipidemia. HDL and triglycerides are optimally controlled. LDL is subopt imal. Mr. Childers has recently stopped the Niaspan due to low platelets. His LD L has increased. We will increase his Lipitor to 80 mg at this time. We will c heck a platelet level at todays visit. We will keep you apprised of this test r esult and further recommendations as available. He will continue to be diligent with eating a heart-healthy diet. 3. Peripheral vascular disease with stenting. 4. Hypertension, optimally controlled. Documented blood pressure readings from rehab range from the 110-120/60-70s. 5. Body mass index 29.90 with a waist circumference of 36.5 inches. This does p lace Mr. Childers in the overweight category. His obesity has resolved. He has l ost approximately 30 pounds since September of 2009. Most recently, he has gained 8 pounds since 10/15/2010, and he was down approximately 38 pounds but now he has gained 8 pounds back. He will plan on stopping any further weight gain and, beg inning next year, working on an additional 5-10 pound weight loss. 6. We will check a 25-hydroxyvitamin D blood test. We will keep you apprised of this test result and further recommendations as available. 7. Fasting blood sugar is in the prediabetic stage at 126, although hemoglobin A 1 is improving. It is down from 6.2 to 5.9%. Mr. Childers will continue to be di ligent with cutting back on simple carbs and sugars in his diet. Mr. Childers mon itors his blood sugars at home as well and they demonstrate blood sugars less th an 120. 8. History of sleep apnea. Dr. Holloway had previously recommended that Mr. Eric delatorre undergo a sleep study and to follow up with the sleep apnea physician to see if his sleep apnea has changed since he has lost approximately 40 pounds. Now h e is down to approximately 32 pounds of weight loss. He has not done this at th is time. Testing Ordered on Today's Visit: Platelets 25 - OH Vit D Today Next Preventive Visit: In 4 Months We will apprise you of the above test results and further recommendations as the y are available. Thank you for allowing us to participate in the care of this nice patient. Nohemi e do not hesitate to call should you have questions or concerns. Sincerely, Gita Whitaker RN, BC, ELECTRICAL LOGGER-C [facility]/ct Supervising physician available for consultation is: Richard Carbone M.D. cc: CARL LISETH [address] [place] [address] F: 03/02/2011 ING TECHNICIAN documented in this encounter Plan of Treatment Not on filedocumented as of this encounter Visit Diagnoses Not on filedocumented in this encounter
--- OUTSIDE RECORDS SUMMARY | 2019-09-14 20:42 | XMS REPORT | Encounter Summary ---
Author Author [facility] Organization [facility] Address Unknown Phone Unavailable Care Team Providers Care Fox Farmer Name Role Phone PCP Unavailable Encounter Details Care Team Description Date Type Department Richard Freeman MD [address] [facility] [address] [place] [address] [phone] [facility] [address] [place] [address] Social History Date Tobacco Use Types Packs/Day [...] Procedure Name Priority Date/Time Associated Diag nosis MESSAGE TO PHYSICIAN Routine 02/22/2011 5:53 PM SENIOR FACILITIES MANAGER THYROID STIMULATING Routine 02/22/2011 HORMONE 5:53 PM SENIOR FACILITIES MANAGER T4 FREE Routine 02/22/2011 5:53 PM SENIOR FACILITIES MANAGER PLATELET Routine 02/22/2011 5:53 PM SENIOR FACILITIES MANAGER documented in this encounter Results * Platelet (02/22/2011 5:53 PM SENIOR FACILITIES MANAGER) Platelet Count 121 (L) 140 - 400 TH/UL SUNQUEST Specimen Blood Performing Organization Address [facility] one Number RL [address] [place] [id number] SUNQUEST * T4 Free (02/22/2011 5:53 PM SENIOR FACILITIES MANAGER) T4 Free 1.0 0.8 - 2.2 NG/DL SUNQUEST Specimen Blood Performing Organization Address [facility] one Number RL [address] [place] [phone] SUNQUEST * Thyroid Stimulating Hormone (02/22/2011 5:53 PM SENIOR FACILITIES MANAGER) Thyroid 0.59 0.47 - 4.68 UIU/ML SUNQUEST Stimulating Hormone Specimen Blood Performing Organization Address [facility] one Number SLRL [address] [place], [place] [address] SUNQUEST * Message to Physician (02/22/2011 5:53 PM SENIOR FACILITIES MANAGER) Message to The following test requires an SUNQUE ST Physician A Comment: The following test requires an Advanced Beneficiary Notice (ABN) signed by the patient before testing can be completed: Vitamin D 25. Results will be available when the ABN is received in the laboratory. After 7 days, these results will no longer be available. Specimen No Collect Performing Organization Address [facility] one Number SLRL [address] [place], [place] [address] SUNQUEST documented in this encounter Visit Diagnoses Not on filedocumented in this encounter
--- OUTSIDE RECORDS SUMMARY | 2019-09-14 20:42 | XMS REPORT | Encounter Summary ---
Author Author [facility] Organization [facility] Address Unknown Phone Unavailable Care Team Providers Care Map Clerk Name Role Phone Charmaine Black PCP Encounter Details Care Team Description Date Type Department Stephania Whitaker RN CLIENT SERVICES DIRECTOR- [address] [place] [address] 12/07/2010 [facility] - [facility] HISTORIC CLINI C Visit Social [...]
--- OUTSIDE RECORDS SUMMARY | 2019-09-14 20:42 | XMS REPORT | Encounter Summary ---
Author Author [facility] Organization [facility] Address Unknown Phone Unavailable Care Team Providers Care Senior Administrative Associate Name Role Phone PCP Unavailable Encounter Details Care Team Description Date Type Department Shade Pérez MD [address] [id number] Type II or unspecified type diabetes jasmin litus without mention of complication, not stated as uncontrolled 05/04/2011 [facility] Encounter [address] [place], [place] [id number] Social History Date Tobacco Use Types Packs/Day [...] II or unspecified type diabetes me llitus without mention of complication, not stated as uncontrolled documented in this encounter
--- OUTSIDE RECORDS SUMMARY | 2019-09-14 20:43 | XMS REPORT | Encounter Summary ---
Author Author [facility] Organization [facility] Address Unknown Phone Unavailable Care Team Providers Care Stapling Machine Operator Name Role Phone Ananth Black PCP Encounter Details Care Team Description Date Type Department Stephania Whitaker RN FNP- [address] [place] [address] 10/21/2010 [facility] Visit Social History Date Tobacco Use Types Packs/Day Years Used Never Assessed Sex Assigned at Date Recorded Not on file Industry Job Start Date Occupation Not on file Not on file Not on file Travel End Travel History Travel Start No recent travel history available. documented as of this encounter Progress Notes * Stephania Whitaker RN FNP- - 10/21/2010 9:17 AM CDT [place] [facility] [address] [place] [address] 10/22/2010 ANANTH BLACK MD [address] [facility] [address] Re: CARL CHILDERS : 1935 Chart#: [id number] Dear Dr. BLACK: This is a followup note regarding CARL LISETH. He has completed his laboratory testing and I am writing to share the results with you. He had the following tests: Platelets: 10/20/2010 :Platelet - Platelet Count: 103 L TH/uL (140-400) previous 105 02/12/10 Based on the above, I am recommending the following: - Decrease Niaspan to 750 mg. daily. Recheck platelet count in 4-6 weeks. A lab oratory requisition has been provided to Mr. Childers. - continued compliance with risk factor modification Follow up is requested in 1 month for repeat laboratory testing, 4 months [facility]. These test results along with my recommendations have been communicated to CARL CHILDERS. I hope this information is useful to you. If you should have any quest ions or concerns, please do not hesitate to contact me. Sincerely, Gita Whitaker RN, BC, MANAGER FLIGHT OPERATIONS-C documented in this encounter Plan of Treatment Not on filedocumented as of this encounter Visit Diagnoses Not on filedocumented in this encounter
--- OUTSIDE RECORDS SUMMARY | 2019-09-14 20:43 | XMS REPORT | Encounter Summary ---
Author Author [facility] Organization [facility] Address Unknown Phone Unavailable Care Team Providers Care Motor Polarizer Name Role Phone Charmaine Black PCP Encounter Details Care Team Description Date Type Department Desiree Herrera MD [address] [address] [phone] 04/21/2010 Hist-Appointmen [facility] CL [...] Signs Reading Time Taken Comments Vital Sign 128/70 04/21/2010 2:05 PM HEALTHCARE TECHNICIAN Blood Pressure 78 04/21/2010 2:05 PM HEALTHCARE TECHNICIAN Pulse - - Temperature - - Respiratory Rate - - Oxygen Saturation - - Inhaled Oxygen Concentration 86.6 kg (191 lb) 04/21/2010 2:05 PM HEALTHCARE TECHNICIAN Weight 172.7 cm (5' 8") 04/21/2010 2:05 PM HEALTHCARE TECHNICIAN Height 29.04 04/21/2010 2:05 PM HEALTHCARE TECHNICIAN Body Mass Index documented in this encounter Progress Notes * Desiree Herrera MD - 04/21/2010 2:00 PM HEALTHCARE TECHNICIAN History of Present Illness Diabetes-[facility]: The patient's visit is for a routine clinic follow-up of type II diabetes mellit us (Dx'd 2009). The patient's last clinic visit was 3 month(s) ago. No changes i n management were made at the last visit. Symptoms: no polydipsia, no polyuria, appetite not increased, no fatigue, no jhony rred vision and no episodes of hypoglycemia. The patient presents with complaints of weight loss. (intentional)There is no kn own event that preceded symptom onset. Patient reports doing home measurements 2 time(s) per day. Home measurement readings show Fasting blood sugars are generally Lowest fasting blood sugar reading was 96. Highest fasting blood sugar reading was 144. Pre-pr andial blood sugars are generally Lowest pre-prandial blood sugar reading was 89 . Highest pre-prandial blood sugar reading was 114. (Glucose log for last month reviewed) Associated symptoms: appetite not increased, no nausea, no vomiting, no anorexia , no abdominal pain, no abnormal healing and no confusion. The patient is due for a hemoglobin A1C. Current treatment also includes diabeti c teaching (completed 3/3 classes in January 2010), glucose monitoring, regular exercise (stationary bike 30-45 minutes per day; treadmill for 30 min 3x/wk; we ights for 15 min 3x/wk) and diabetic diet. Patient is counting carbs and reports eating 45 carbs per meal. By report, there is good compliance with treatment, g ood tolerance of treatment and good symptom control. (No medications). Past eval uation has included hemoglobin A1c, metabolic panel, fasting lipid profile, urin alysis and ophthalmology examination (Last exam was 12/16/[address] Wen in [place], [place]). Past treatment has included diabetic teaching, glucose monitoring, aspirin, diet modification and exercise program. He was previously evaluated by me 3 month(s) ago. Pertinent medical history: hypertension, coronary artery dis ease, peripheral vascular disease, steroid therapy (recent steroid injection in left knee end of March 2009), hyperlipidemia and neuropathy, but no nephropath y and no retinopathy. Risk factors: obesity, but no inactivity and no prolonged corticosteroid use. Family history: diabetes mellitus type II and premature abilio nary artery disease, but no obesity. Current Meds 1 CardioTabs CardioDaily; TAKE 1 TABLET DAILY; Status: ACTIVE 2 CardioTabs [place] 3; TAKE 3 TABLETS BY MOUTH DAILY; Status: ACTIVE 3 Chlorhexidine Gluconate 0.12 % Mouth/Throat Solution; Status: ACTIVE 4 Lipitor 40 MG Oral Tablet; Status: ACTIVE 5 Metoprolol Succinate 25 MG Oral Tablet Extended Release 24 Hour; TAKE 1 TABLET ONCE DAILY; Status: ACTIVE 6 Niaspan 1000 MG Oral Tablet Extended Release; TAKE 1 TABLET DAILY AT BEDTIME; Status: ACTIVE 7 OneTouch FinePoint Lancets Miscellaneous; TEST TWICE DAILY; Status: ACTIVE 8 OneTouch Ultra Test In Vitro Strip; TEST TWICE DAILY; Status: ACTIVE 9 PriLOSEC 20 MG Oral Capsule Delayed Release; Status: ACTIVE 10 Sertraline HCl 50 MG Oral Tablet; Status: ACTIVE 11 Vitamin D 1000 UNIT Oral Capsule; Status: ACTIVE 12 Zocor 80 MG Oral Tablet; Status: ACTIVE Allergies No Known Drug Allergies Vitals Vital Signs [Filter Applied: Last 24 Hours] 21Apr2010 02:05PM BMI Calculated 29.04 BSA Calculated 2 Height 68 in Weight 191 lb Systolic 128 Diastolic 70 Heart Rate 78 Review of Systems A 10 point review of systems was reviewed with patient and was otherwise negati ve, unless noted as positive above in the history of present illness. Active Problems Problems 1 Anxiety (Symptom) 300.00 Status: Active 2 Benign Polyps Of The Large Intestine 211.3 Status: Active 3 Benign Prostatic Hypertrophy 600.00 Status: Active 4 Carotid Artery Stenosis 433.10 Status: Active 5 Cholelithiasis 574.20 Status: Active 6 Coronary Artery Disease 414.00 s/p 4 vv CABG 09/02/07; Status: Active 7 Depression 311 Status: Active 8 Diabetic Peripheral Neuropathy 357.2 Status: Active; Last Assessed: 21Apr2010 04:59PM 9 Diverticulosis 562.10 Status: Active 10 Dyslipidemia 272.4 Status: Active; Last Assessed: 21Apr2010 04:59PM 11 Generalized Osteoarthritis Of Multiple Sites 715.09 Status: Active 12 Hypertension 401.9 Status: Active; Last Assessed: 21Apr2010 04:59PM 13 Male Erectile Disorder 302.72 Status: Active 14 Obesity 278.00 Status: Active 15 Obstructive Sleep Apnea 327.23 Status: Active 16 Osteoarthrosis 715.90 Status: Active 17 Peripheral Vascular Disease 443.9 Status: Active 18 Renal Artery Stenosis 440.1 s/p stent; Status: Active 19 Squamous Cell Carcinoma Of The Skin 173.9 s/p resection; Status: Active Social History Problems Being A Social Drinker has 2-3 beers a week; Status: Active Exercising Regularly Status: Active Uses Safety Equipment - Seatbelts Status: Active Denied History of Smoking Category: History of; Status: Denied Physical Exam General: Patient is a pleasant and cooperative gentleman who is other saucedo in no apparent distress. Psych: Patient is alert and oriented x3. Neuro: No focal deficits. Two out of four bilateral biceps deep tendon reflexes . No tremor with outstretched hands. Monofilament sensation intact in bilatera l feet. Head: Normocephalic atraumatic. Eyes: Anicteric sclera. [...] ulc ers noted. The right foot was normal.The right toes were normal.Capillary refills were norm al in the right toes.Pulse is 1 in the dorsalis pedis of the right foot.The left foot was normal.The left toes were normal.Capillary refill: normal in the left toes.Pulse is 1 in the dorsalis pedis of the left foot. Monofilament Testing: did not show decreased sensation of the foot Results/Data Selected Results HL Microalbumin Random 14Oct2009 05:40PM DESIREE HERRERA [Oct 15, 2009 8:45AM DESIREE HERRERA] Nml. Neg Ur MAB:Cr. Continue recs made in clinic. Test Name Result Flag Reference Microalbumin Mg/L 0.24 mg/dL Creatinine, Urine Random Quant 76.1 mg/dL Microalbumin/Creatinine Ratio 3.15 ug/mg 0.00-16.00 HL Comprehensive Metabolic Panel 27Jan2010 02:46PM DESIREE HERRERA [Feb 02, 2010 1:53PM DESIREE HERRERA] Normal. Cont recs [facility]. Test Name Result Flag Reference Albumin 4.4 g/dL 3.5-5.0 Aspartate Aminotransferase 28 IU/L 15-41 Alanine Aminotransferase 29 IU/L 14-63 Bilirubin Total 0.9 mg/dL 0.3-1.4 Protein Total Serum 6.5 g/dL 6.0-8.0 Calcium 9.6 mg/dL 8.8-10.5 Creatinine 1.0 mg/dL 0.6-1.3 Glucose 116 mg/dL H 65-100 Alkaline Phosphatase 59 IU/L 42-128 Sodium 139 MEQ/L 134-144 Potassium 4.1 MEQ/L 3.5-5.1 Chloride 103 MEQ/L 101-111 Anion Gap 7 3-15 Blood Urea Nitrogen 28 mg/dL H 8-26 Carbon Dioxide 29 MEQ/L 23-32 Gfrm Aa 88 Chronic Kidney Disease less than 60 mL/min/1.73 sq.m Kidney failure less than 15 mL/min/1.73 sq.m Gfrm Non Aa 73 Chronic Kidney Disease less than 60 mL/min/1.73 sq.m Kidney failure less than 15 mL/min/1.73 sq.m HL Glucose 21Apr2010 02:10PM DESIREE HERRERA 2 PP Test Name Result Flag Reference Glucose 107 N HL Hemoglobin A1C 21Apr2010 03:09PM DESIREE HERRERA Test Name Result Flag Reference Hemoglobin A1C 6.5 A 02/12/2010: AST 20, ALT 23, glucose 131, total cholesterol 118, triglyceride 91 , HDL 52, LDL 48 (per dictation from [facility] Cardiovascular Licensed Acupuncturist office which patient had on his person in clinic today) Assessment 1 Type II Diabetes Mellitus With Complication 250.90 Status: Active; Transitioned From: Type II Diabetes Mellitus - Uncomplicated, Co ntrolled; Last Assessed: 21Apr2010 04:59PM 2 Diabetic Peripheral Neuropathy 357.2 Status: Active; Last Assessed: 21Apr2010 04:59PM 3 Dyslipidemia 272.4 Status: Active; Last Assessed: 21Apr2010 04:59PM 4 Hypertension 401.9 Status: Active; Last Assessed: 21Apr2010 04:59PM Plan 1. Diabetes mellitus 2. Complicated by peripheral neuropathy, which has impro avtar with improved control. Controlled as evidenced by his A1c at 6.5% today in clinic. Review of his outpatient glucose log book indicates decent control the majority of the time. He does have occasional fasting glucose levels which are above goal, but these are generally associated with higher amounts of carbohydra te at supper the night before, or with a bedtime snack. I suggested patient cut out the bedtime snack, or eat more protein for the snack. Patient has completed diabetes education and is aware the effect of carbohydrates on glucose levels. He will continue limiting his carbohydrates at meals to less than 60 g per meal. I recommend he continue monitoring his glucose fasting 3-4 times weekly, and also check intermittently later in the day prior to meals or bedtime. His gluc ose goals are below 120 fasting, and below 140 prior to other meals and bedtime. He will followup with his primary physician regarding diabetes in 3 months. He will followup with me in 6 months. I will plan to update a urine microalbumin :creatinine ratio at his followup. If he has readings above goal on a consisten t basis, he can contact me before his followup. 2. Dyslipidemia. Lipids are at goal. Continue current therapy. 3. Hypertension. Blood pressure is at goal. continue current antihypertensive regimen. CC: Charmaine Black M.D. Olman Holloway M.D. Signatures DESIREE HERRERA M.D.; Apr 21 2010 5:04PM (Author) THCARE TECHNICIAN documented in this encounter Plan of Treatment Not on filedocumented as of this encounter Procedures Comments Procedure Name Priority Date/Time Associated Diag nosis HEMOGLOBIN A1C Routine 04/21/2010 3:09 PM HEALTHCARE TECHNICIAN GLUCOSE Routine 04/21/2010 2:10 PM HEALTHCARE TECHNICIAN documented in this encounter Results * Hemoglobin A1C (04/21/2010 3:09 PM HEALTHCARE TECHNICIAN) Hemoglobin A1C 6.5 (A) 0 OFFICE ENTERED Specimen Performing Organization Address [facility] Ph one Number OFFICE ENTERED * Glucose (04/21/2010 2:10 PM HEALTHCARE TECHNICIAN) Glucose 107 0 OFFICE ENTERED Specimen Performing Organization Address [facility] Ph one Number OFFICE ENTERED documented in this encounter Visit Diagnoses Not on filedocumented in this encounter
--- OUTSIDE RECORDS SUMMARY | 2019-09-14 20:43 | XMS REPORT | Encounter Summary ---
Author Author [facility] Organization [facility] Address Unknown Phone Unavailable Care Team Providers Care Abrasive Grader Name Role Phone PCP Unavailable Encounter Details Care Team Description Date Type Department Richard Freeman MD [address] [facility] [address] [place] [address] [phone] Stephania Whitaker RN [facility] [address] [place] [address] 10/20/2010 [facility] Hospit al Encounter [address] [place] [address] Social History Date Tobacco Use Types Packs/Day [...] one 0 0 tablet by mouth daily 11/05/2009 10/09/2014 atorvastatin (LIPITOR) 40 take 1 tablet 90 3 MG tablet (40MG) by ORAL route every day 07/09/2004 10/09/2014 calcium carbonate-vitamin [...] (50)-100 mg TbER tablet by mouth daily 01/10/2019 hyaluronate (SYNVISC) 16 prn 1 0 [...] day at bedtime after a low-fat snack 12/18/2009 10/09/2014 niacin (NIASPAN take 2 tablet [...] Procedure Name Priority Date/Time Associated Diag nosis PLATELET Routine 10/20/2010 5:59 PM CDT documented in this encounter Results * Platelet (10/20/2010 5:59 PM CDT) Platelet Count 103 (L) 140 - 400 TH/UL SUNGeoli.st Classifieds Specimen Blood Performing Organization Address City/State[facility] Ph one Number [facility] [address] [place], [place] [address] [facility] documented in this encounter Visit Diagnoses Not on filedocumented in this encounter
--- OUTSIDE RECORDS SUMMARY | 2019-09-14 20:43 | XMS REPORT | Encounter Summary ---
Author Author [facility] Organization [facility] Address Unknown Phone Unavailable Care Team Providers Care Singing Teacher Name Role Phone Charmaine Black PCP Encounter Details Care Team Description Date Type Department Stephania Whitaker RN SUPERINTENDENT WATER AND SEWER SYSTEMS- [address] [place] [address] 03/30/2010 [facility] Visit Social History [...]
--- OUTSIDE RECORDS SUMMARY | 2019-09-14 20:43 | XMS REPORT | Encounter Summary ---
Author Author [facility] Organization [facility] Address Unknown Phone Unavailable Care Team Providers Care Dry Paste Supervisor Name Role Phone Ananth Black PCP Encounter Details Care Team Description Date Type Department Stephania Whitaker RN MUSICIAN INSTRUMENTAL- [address] [place] [address] 06/17/2010 [facility] [...] Reading Time Taken Comments Vital Sign 138/70 06/17/2010 11:27 AM CDT Blood Pressure 72 06/17/2010 11:27 AM CDT Pulse - - Temperature - - Respiratory Rate - - Oxygen Saturation - - Inhaled Oxygen Concentration 85.3 kg (188 lb) 06/17/2010 11:27 AM CDT overweight Weight 170.2 cm (5' 7") 06/17/2010 11:27 AM CDT Height 29.44 06/17/2010 11:27 AM CDT Body Mass Index documented in this encounter Progress Notes * Stephania Whitaker RN FNP-MANFRED - 06/17/2010 11:00 AM CDT [facility] [address] [place] [address] June 17, 2010 ANANTH BLACK MD [address] [facility] [place] [place] [address] RE: CARL CHILDERS : 1935 CHART #: [id number] Visit Provider: Gita Whitaker RN, BC, MUSICIAN INSTRUMENTAL-C Visit Location: [facility] I had the pleasure of seeing CARL [facility]ILDERS [facility] for cardi ovascular risk reduction. He is 75 years of age and presents with the following chief complaints: coronary artery disease, dyslipidemia, and hypertension. Risk factors include: Male greater than 45 years old HDL less than 40 Obesity Hypertension Dyslipidemia Family hx (CAD < 60 Yo) Known history of coronary artery disease. Laboratory Results from today's visit are as follows: Date Collected: 06/17/2010 Fasting: Fasting Total Cholesterol: 117 HDL: 40 LDL: 56 Triglycerides: 103 Ratio: 2.92 Glucose 130 HbA1c 6.0 ALT 40 AST 21 Laboratory Results obtained on June 15, 2010: Platelets 130 Hematocrit 41 Hemoglobin 14.1 Final Medications: Hydrocodone Bit/acetaminophen 5 Mg-500mg take 1 capsule by oral route every 6 h ours as needed Niaspan 500 Mg take 2 tablet (1000MG) by oral route every day at bedtime after a low-fat snack Vitamin D 1000 Unit Take 1 tablet by mouth twice daily Lipitor 40 Mg take 1 tablet (40MG) by ORAL route every day CardioDaily 1 take 1 tablet (20MG) by ORAL route every day Aspirin 325 Mg Take one tablet by mouth daily Toprol XL 25 Mg Take one tablet by mouth in the AM. Prilosec OTC 20 Mg Take one tablet by mouth daily [place]-3 Fatty Acids Take two capsules by mouth twice per day Zoloft 50 Mg Take one tablet by mouth daily Allergies: No Known Allergies Family History: Father Cause of was CT at age 62. Mother Cause of was CVA at age [...] that was executed on 03/07/2007 Diet: Low fat/cholesterol, low salt Exercise: Regular. Bikes 30min daily Smoking: Non-smoker Alcohol: Currently drinks 9 oz. of wine weekly Caffeine: Caffeine use: 3 cups daily of coffee ROS: 12-point review of systems is negative with the following exceptions: Pulmonary: Daytime drowsiness Cardiovascular: Chest Discomfort Neuro: Disequilibrium Musculoskeletal/Dermatology: Myalgias, Arthralgias, Skin rash Hematology: Anemia Physical Exam: Vital Signs The patient is [...] No aphasia is apparent by exam. Exercise: Bike for 30 minutes daily. Cardiac rehabilitation three times per week Summary and Recommendations: 1. Known history of coronary artery disease. Mr. Childers reports that he has had some chest discomfort. He states it is a fleeting chest pain that occurs spora dically. It does not occur when he exercises. It is not associated with shortn ess of breath. It is not associated with diaphoresis. It does not appear to be related to lack of blood flow to the heart. He last saw our administrative receptionist, Dr. Osmin Holloway, in September of 2009. Mr. Childers will continue annual appointments with our administrative receptionist, or sooner if deemed necessary, for complete exam and further recommendations. 2. Carotid duplex in April 2006 showed moderate to severe atherosclerotic arely que bilaterally. He is without any dizziness, lightheadedness, syncope or presy ncope. Dr. Holloway at his last visit did recommend that that the patient comple x a duplex exam in one years' time. 3. Peripheral vascular disease with renal stenting. 4. Hypertension. He presents today in a prehypertension state. We will continu e to monitor this at each of his visits. His prior blood pressure here in the [facility] was 110/60. 5. Exercise regimen is excellent. Mr. Childers will continue with his excellent e xercise regimen. 6. BMI of 29.40 with a waist circumference of [address] Childers in the overweight category. His obesity, however, is resolving. He has lost 32 p ounds since September of 2009. It is truly gratifying to see individuals making and maintaining positive lifestyle modifications to optimize their health. Most rec ently, he is down seven pounds since February of 2010 as well as three inches in his waist circumference. 7. His 25-hydroxy vitamin D blood test in February 2010 was 39. He will continu e with his same vitamin D supplementation. 8. History of thrombocytopenia. His platelet level was at 105 in February 2010. At that time, I recommended he decrease his Niaspan from 1500 to 1000mg. Since decreasing the Niaspan his platelet has risen to 130. He will continue with the same Niaspan supplementation. 9. Type 2 diabetes mellitus. Fasting blood sugar and HbA1C demonstrates excelle nt control of his blood sugars as well. Next Preventive Visit: In 4 Months Thank you for allowing us to participate in the care of this nice patient. Nohemi tao do not hesitate to call should you have questions or concerns. Sincerely, Gita Whitaker RN, BC, MUSICIAN INSTRUMENTAL-C Supervising physician available for consultation is: Richard Carbone M.D. BKC:flc cc: CARL CHILDERS [address] [place] [address] p.m. a.m. F: 06/26/2010 documented in this encounter Plan of Treatment Not on filedocumented as of this encounter Visit Diagnoses Not on filedocumented in this encounter
--- OUTSIDE RECORDS SUMMARY | 2019-09-14 20:43 | XMS REPORT | Encounter Summary ---
Author Author [facility] Organization [facility] Address Unknown Phone Unavailable Care Team Providers Care Railroad Car Cleaning Supervisor Name Role Phone Charmaine Black PCP Encounter Details Care Team Description Date Type Department Stephania Whitaker RN HRIS MANAGER- [address] [place] [address] 04/21/2010 [facility] Visit Social History [...]
--- OUTSIDE RECORDS SUMMARY | 2019-09-14 20:43 | XMS REPORT | Encounter Summary ---
Author Author [facility] Organization [facility] Address Unknown Phone Unavailable Care Team Providers Care C4 Planner Name Role Phone Benjie Montano PCP Encounter Details Care Team Description Date Type Department Desiree Herrera MD [address] [facility] [address] [place] [id number] 04/22/2010 [employer] Note [facility] - [place] [address] [facility] [address] [place] [address] Social History Date Tobacco Use Types Packs/Day Years Used Never Assessed Sex Assigned at Date Recorded Not on file Industry Job Start Date Occupation Not on file Not on file Not on file Travel End Travel History Travel Start No recent travel history available. documented as of this encounter Miscellaneous Notes * Miscellaneous - Desiree Herrera MD - 04/22/2010 4:49 PM WASTE AND BATTING WASTE CHOPPER Verified Results Collected/Examined: Apr 21, 2010 2:50PM Test Result Flag Acceptable [facility] Comprehensive Metabolic Panel Albumin 4.1 g/dL 3.5-5.0 Aspartate Aminotransferase 23 IU/L 15-41 Alanine Aminotransferase 29 IU/L 14-63 Bilirubin Total 1.1 mg/dL 0.3-1.4 Protein Total Serum 6.3 g/dL 6.0-8.0 Calcium 9.5 mg/dL 8.8-10.5 Creatinine 1.0 mg/dL 0.6-1.3 Glucose 107 mg/dL H 65-100 Alkaline Phosphatase 66 IU/L 42-128 Sodium 139 MEQ/L 134-144 Potassium 3.9 MEQ/L 3.5-5.1 Chloride 104 MEQ/L 101-111 Anion Gap 6 3-15 Blood Urea Nitrogen 28 mg/dL H 8-26 Carbon Dioxide 29 MEQ/L 23-32 Gfrm Aa 88 Chronic Kidney Disease less than 60 mL/min/1.73 sq.m Kidney failure less than 15 mL/min/1.73 sq.m Gfrm Non Aa 73 Chronic Kidney Disease less than 60 mL/min/1.73 sq.m Kidney failure less than 15 mL/min/1.73 sq.m Discussion/Summary Liver function tests are normal per Dr. Herrera, and kidney tests are stable. Co ntinue with recommendations made at your appointment. If you have any questions or concerns, please call the office at . Thank you Aric COTTON DISPATCHER E AND BATTING WASTE CHOPPER * Miscellaneous - Desiree Herrera MD - 04/22/2010 4:49 PM WASTE AND BATTING WASTE CHOPPER Verified Results Collected/Examined: Apr 21, 2010 2:50PM Test Result Flag Acceptable HL Comprehensive Metabolic Panel [Apr 22, 2010 4:49PM DESIREE HERRERA] LFTs normal. Kidney function stable. [facility] Albumin 4.1 g/dL 3.5-5.0 Aspartate Aminotransferase 23 IU/L 15-41 Alanine Aminotransferase 29 IU/L 14-63 Bilirubin Total 1.1 mg/dL 0.3-1.4 Protein Total Serum 6.3 g/dL 6.0-8.0 Calcium 9.5 mg/dL 8.8-10.5 Creatinine 1.0 mg/dL 0.6-1.3 Glucose 107 mg/dL H 65-100 Alkaline Phosphatase 66 IU/L 42-128 Sodium 139 MEQ/L 134-144 Potassium 3.9 MEQ/L 3.5-5.1 Chloride 104 MEQ/L 101-111 Anion Gap 6 3-15 Blood Urea Nitrogen 28 mg/dL H 8-26 Carbon Dioxide 29 MEQ/L 23-32 Gfrm Aa 88 Chronic Kidney Disease less than 60 mL/min/1.73 sq.m Kidney failure less than 15 mL/min/1.73 sq.m Gfrm Non Aa 73 Chronic Kidney Disease less than 60 mL/min/1.73 sq.m Kidney failure less than 15 mL/min/1.73 sq.m Discussion/Summary Liver function tests are normal per Dr. Herrera, and kidney tests are stable. Co ntinue with recommendations made at your appointment. If you have any questions or concerns, please call the office at . Thank you Aric SPRAGUE E AND BATTING WASTE CHOPPER documented in this encounter Plan of Treatment Not on filedocumented as of this encounter Visit Diagnoses Not on filedocumented in this encounter
--- OUTSIDE RECORDS SUMMARY | 2019-09-14 20:43 | XMS REPORT | Encounter Summary ---
Author Author [facility] Organization [facility] Address Unknown Phone Unavailable Care Team Providers Care Dispatcher Ship Pilot Name Role Phone Charmaine Black PCP Encounter Details Care Team Description Date Type Department Stephania Whitaker RN SENIOR CHEMICAL ENGINEER- [address] [place] [address] 10/22/2010 [facility] HISTORIC [...]
--- OUTSIDE RECORDS SUMMARY | 2019-09-14 20:43 | XMS REPORT | Encounter Summary ---
Author Author [facility] Organization [facility] Address Unknown Phone Unavailable Care Team Providers Care Nurse Practitioner Home Assessments Name Role Phone Charmaine Black PCP Encounter Details Care Team Description Date Type Department Stephania Whitaker RN PIPE TESTING TECHNICIAN- [address] [place] [address] 10/22/2010 [facility] C Visit Social [...]
--- OUTSIDE RECORDS SUMMARY | 2019-09-14 20:43 | XMS REPORT | Encounter Summary ---
Author Author [facility] Organization [facility] Address Unknown Phone Unavailable Care Team Providers Care Engine Repairer Name Role Phone Ananth Black PCP Encounter Details Care Team Description Date Type Department Olman Holloway MD [address] [address] [phone] 09/25/2010 [facility] [...] Signs Reading Time Taken Comments Vital Sign 118/62 09/25/2010 11:19 AM CDT Blood Pressure 59 09/25/2010 11:19 AM CDT Pulse - - Temperature - - Respiratory Rate - - Oxygen Saturation - - Inhaled Oxygen Concentration 84.4 kg (186 lb) 09/25/2010 11:19 AM CDT overweight Weight 170.2 cm (5' 7") 09/25/2010 11:19 AM CDT Height 29.13 09/25/2010 11:19 AM CDT Body Mass Index documented in this encounter Progress Notes * Olman Holloway MD - 09/25/2010 11:[address] [place] [address] September 25, 2010 ANANTH BLACK MD [facility] [facility] [place] [address] [place] [address] RE: CARL CHILDERS : 1935 Chart #: [id number] Visit provider: Olman Holloway M.D. Visit location: [address] office Dear Dr. BLACK: I had the pleasure of seeing CARL CHILDERS in the office today. He is 75 years of age and presents with the following chief complaints: coronary artery disease. HPI: He seems to doing very well. He denies chest pain, shortness of breath, palpitat ions, syncope or presyncope. He has changed his diet considerably. He is also exercising regularly. He has lo st a lot of weight since I saw him last year. His weight has dropped from 220 po unds to 186 pounds. He does have some discomfort in his left knee. He is thinking about knee replace ment surgery sometime over the course of the next year. As you know, this man underwent coronary bypass surgery in 08/12. He has also chatman d renal artery stenting in the past. He also has some peripheral vascular diseas e, although he has been asymptomatic from that standpoint. He has sleep apnea an d uses CPAP. He has venous insufficiency. Problem List: 08/24/2007 CAD MPI Stress Test Mild to moderate ischemia in the distribution of the left anterior descending coronary artery and right coronary artery occurring at a low workload. Markedly positive ST segment change at low workload. Normal left ventricular systolic function. LVEF at rest is 71%. 1. Patient received sub lingual nitroglycerin early in the recovery period because of chest pain symptom s. 2. Test results were verbally communicated on date of dictation at 1525 hour s. 08/31/2007 CAD CABG Left internal mammary artery to left anterior descending, sa phenous vein to sequential to OM1 and OM2. Saphenous vein to posterior descending artery wit h a long vein patch anastomosis across the posterior descending artery lesion. Congenital heart disease-Patent foramen ovale DM 05/22/2004 Dyslipidemia 12/18/2009 Echo 1. Normal left ventricular systolic function, with an estimated ejection fraction of 65%. 2. Mild mitral and tricuspid regurgitation. 3. Severe left atrial dilatation. 4. Mildly elevated pulmonary pressure (39 mmHg). 5. Sm all PFO based on a color Doppler evaluation. Compared with the prior study dated 10/13/2007 the degree of mitral regurgitation appears slightly less prominent. 08/24/2007 EF MPI Rest EF: 71, Stress EF: 62 12/18/2009 EF Echo EF: 65 Hypertension Obesity 11/17/2006 PVD aorto-iliac duplex 1. Moderate atherosclerosis within the abdomin al aorta. 2. Normal abdominal aorta dimensions. 3. Increased flow velocities in the distal aorta (2.9 m/s) consistent with a significant stenosis. 4. Increased flow velocities in the right common iliac consistent with a 50-75% stenosis. 5. Increased flow velocity (3.6 m/s) is incidentally noted in the right renal arter y. 12/30/2006 PVD CTA Runoff 1. High-grade stenosis in the proximal segment of the right renal artery (approximately 90% diameter reduction).2. Highly localized ar ea of dissection or penetrating ulcer in the distal abdominal aorta at the level of the inferior mesenteric artery.3. Mild, scattered atherosclerotic disease in the iliac and femoral vessels. 4. Three-vessel runoff to the distal left and ri ght lower extremities.5. Please see the radiology report for details of the nonv ascular findings. 02/13/2007 PVD Renal angiography Bilateral renal stent -Right Renal Artery from 99% to 0% post 5.5 x 18mm Herculink Plus Stent post-dilated with a 6.5 mm balloo n secondary to marked post-stenotic dilatation. 09/23/2008 PVD Renal Duplex Normal velocities in both renal arteries with no claudio dence for a significant stenosis, including the stent in the right renal artery. A cyst, measuring 1.4 cm x 1.5 cm, is present in the left kidney. No significa nt change from 08/24/2007. 10/14/2009 PVD Carotid Duplex There is a >50% stenosis in the right ECA. 12/18/2009 Valve Valvular heart disease -Mitral regurgitation - mild Past Medical History: Anxiety Cholelithiasis Obesity Osteoporosis Perforated diverticulum Osteoarthritis Osteopenia Erectile Dysfunction Diverticulosis Colon polyps Gallbladder dysfunction BPH Squamous cell CA 2002 Sleep Apnea on CPAP 2004 Past Surgical History: Surgery for Squamous Cell cancer Appendectomy 1998 Colon resection 1998 Skin Cancer Removal 2001 Final Medications: Niacin 1000 Mg take 1 tablet (1000MG) by oral route every day at bedtime after a low-fat snack Hydrocodone Bit/acetaminophen 5 Mg-500mg take 1 capsule by oral route every 6 h ours as needed Vitamin D 1000 Unit Take 1 tablet by mouth twice daily Lipitor 40 Mg take 1 tablet (40MG) by ORAL route every day Cardiodaily take 1 tablet (20MG) by ORAL route every day Aspirin 325 Mg Take one tablet by mouth daily Toprol XL 25 Mg Take one tablet by mouth in the AM. Prilosec OTC 20 Mg Take one tablet by mouth daily [place]-3 Fatty Acids Take two capsules by mouth twice per day Zoloft 50 Mg Take one tablet by mouth daily Allergies/Intolerances: No Known Allergies Family History: Brother Diagnosed with HTN. Mother Cause of was CVA at age 82. Brother Cause of was CRF at age 67. Father Cause of was [place] at age 62. Brother Cause of was CABG at age 71. Sister Cause of was [place] at age 86. Social History: Marital Status: Children: 3 Occupation: - Retired Advance Directives: There are no advance directives. The patient has a living wi ll that was executed on 03/07/2007 Diet: Low fat/chol, Low salt Exercise: Regular. Bikes 30min daily Smoking: Non-smoker Alcohol: Currently drinks 9 oz. of wine weekly Caffeine: Caffeine use: 3 cups daily of coffee ROS: 12-point review of systems is negative with the following exceptions: Pulmonary: Snore, Sleep apnea Musculoskeletal/Dermatology: Arthralgias Hematology: Anemia Physical Exam: Vital Signs The patient is 5ft 7in tall, and weighs 186lbs. The BMI is 29.10. B lood pressure taken in the left arm is 118/62 mmHg in the sitting position. The pulse [...] left popliteal pulses are normal. There are righ t and left carotid bruits present. EXT The extremities are warm to touch. There is no edema noted. Skin The skin is warm and dry. M/S The patient's gait is normal. Neuro/Psych The patient is alert and oriented to time, person and place. The pa nilda's mood is normal. No aphasia is apparent by exam. EKG: Rhythm: Sinus Rate: 59 AV Conduction: Right bundle branch block Most Recent Lipids Available for Review: Date Collected: 06/17/2010 Fasting: Fasting Total Cholesterol: 117 HDL: 40 LDL: 56 Triglycerides: 103 Ratio: 2.92 Glucose: 130 ALT 40 HbA1C 6.0 Impression and Plan: 1. Coronary artery disease: He is now three years post CABG and he is asymptomat ic. I do not think any testing is indicated at this point in time. If he decides to go ahead with knee replacement surgery, probably it would be a good idea for him to be seen prior to that. 2. Dyslipidemia : [facility]. He is doing w ell with weight loss and good control of his lipids. 3. Type 2 diabetes: His hemoglobin A1c level is 6.0. 4. Obstructive sleep apnea: He has lost a lot of weight and probably should have another sleep study to determine whether he still has sleep apnea and the appro priate therapy for this. 5. Hypertension: Blood pressure is under good control. Follow up: Olman Holloway M.D. 1 Year Thank you for allowing me to participate in CARL CHILDERS's care. If I can be of any further assistance, please do not hesitate to contact me. Sincerely, Olman Holloway M.D. TMB/dm F: 10/02/2010 documented in this encounter Plan of Treatment Not on filedocumented as of this encounter Visit Diagnoses Not on filedocumented in this encounter
--- OUTSIDE RECORDS SUMMARY | 2019-09-14 20:43 | XMS REPORT | Encounter Summary ---
Author Author [facility] Organization [facility] Address Unknown Phone Unavailable Care Team Providers Care Mail Handlers Supervisor Name Role Phone PCP Unavailable Encounter Details Care Team Description Date Type Department Shade Pérez MD [address] [id number] Type II or unspecified type diabetes jasmin litus without mention of complication, uncontrolled 10/27/2010 [facility] Encounter [address] [place], [place] [id number] Social History Date Tobacco Use Types Packs/Day [...] Date/Time Associated Diag nosis MICROALBUMIN RANDOM Routine 10/27/2010 12:04 PM CDT LIPID PANEL Routine 10/27/2010 12:04 PM CDT COMPREHENSIVE METABOLIC Routine 10/27/2010 PANEL 12:04 PM CDT documented in this encounter Results * Comprehensive Metabolic Panel (10/27/2010 12:04 PM CDT) Albumin 4.4 3.5 - 5.0 G/DL SUNQUEST Aspartate 24 15 - 41 IU/L SUNQUEST Aminotransferas e Bilirubin Total 1.4 0.3 - 1.4 MG/DL SUNQUEST Protein Total 6.7 6.0 - 8.0 G/DL SUNQUEST Serum Calcium 9.9 8.8 - 10.5 MG/DL SUNQUEST Creatinine 1.1 0.6 - 1.3 MG/DL SUNQUEST Glucose 114 (H) 65 - 100 MG/DL SUNQUEST Alkaline 61 42 - 128 IU/L SUNQUEST Phosphatase Sodium 140 134 - 144 MEQ/L SUNQUEST Potassium 4.2 3.5 - 5.1 MEQ/L SUNQUEST Chloride 103 101 - 111 MEQ/L SUNQUEST Carbon Dioxide 29 23 - 32 MEQ/L SUNQUEST Blood Urea 25 8 - 26 MG/DL SUNQUEST Nitrogen Anion Gap 8 3 - 15 SUNQUEST Alanine 24 14 - 63 IU/L SUNQUEST Aminotransferas e eGFR Male 65 SUNQUEST Non-AA Comment: Chronic Kidney Disease less than 60 mL/min/1.73 sq.m Kidney failure less than 15 mL/min/1.73 sq.m eGFR Male AA 79 SUNQUEST Comment: Chronic Kidney Disease less than 60 mL/min/1.73 sq.m Kidney failure less than 15 mL/min/1.73 sq.m Specimen Blood Performing Organization Address [facility] Ph one Number [facility] [address] [place], [place] [address] SUNQUEST * Lipid Panel (10/27/2010 12:04 PM CDT) Cholesterol 132 100 - 200 MG/DL SUNQUEST Triglycerides 96 0 - 150 MG/DL SUNQUEST HDL Cholesterol 40 40 - 110 MG/DL SUNQUEST LDL Cholesterol 73 0 - 99 MG/DL SUNQUEST Cholesterol/HDL 3.3 0.0 - 4.5 SUNQUEST Ratio Non-HDL 92 0 - 130 MG/DL SUNQUEST Cholesterol Specimen Blood Performing Organization Address [facility] Ph one Number [facility] [address] [place], [place] [address] SUNQUEST * Microalbumin Random (10/27/2010 12:04 PM CDT) Creatinine 98.6 MG/DL SUNQUEST Urine Random Microalbumin/Cr Not CalcComment: Result is 0.00 - 16.00 UG/MG SUNQUEST eatinine Ratio outside linear range. Calculation cannot be performed Microalbumin <0.20 MG/DL SUNQUEST mg/dl Specimen Urine Performing Organization Address [facility] Ph one Number [facility] [address] [place], [place] [address] SUNQUEST documented in this encounter Visit Diagnoses Diagnosis Type II or unspecified type diabetes me llitus without mention of complication, uncontrolled documented in this encounter
--- OUTSIDE RECORDS SUMMARY | 2019-09-14 20:43 | XMS REPORT | Encounter Summary ---
Author Author [facility] Organization [facility] Address Unknown Phone Unavailable Care Team Providers Care Mechanical Planner Name Role Phone Charmaine Black PCP Encounter Details Care Team Description Date Type Department Shaun Tom MD no forwarding address 03/23/2010 [facility] [...]
--- OUTSIDE RECORDS SUMMARY | 2019-09-14 20:43 | XMS REPORT | Encounter Summary ---
Author Author [facility] Organization [facility] Address Unknown Phone Unavailable Care Team Providers Care Product Marketing Executive Name Role Phone PCP Unavailable Encounter Details Care Team Description Date Type Department Shade Pérez MD [address] [phone] [facility] [address] [place], [place] [id number] Social History Date Tobacco Use Types Packs/Day [...] TAKE 1 TABLET 30 0 tablet DAILY. 07/09/2004 10/09/2014 aspirin (ECOTRIN LOW Take one [...] 1200 mg of EPA/DHA) BY MOUTH DAILY 12/18/2009 10/09/2014 cholecalciferol, vitamin Take 1 tablet [...] 25 MG tablet by tablet mouth daily 04/18/2012 10/09/2014 LEGACY MED TAKE 1 30 [...] 0 per tablet tablet by mouth daily 02/18/2010 10/09/2014 niacin (NIASPAN take 2 tablet [...] ORAL route every day in the evening 07/09/2004 10/09/2014 vardenafil (LEVITRA) 20 PRN 0 0 MG tablet documented as of this encounter Plan of Treatment Not on filedocumented as of this encounter Procedures Comments Procedure Name Priority Date/Time Associated Diag nosis COMPREHENSIVE METABOLIC Routine 04/21/2010 PANEL 2:50 PM CEREAL MILLER documented in this encounter Results * Comprehensive Metabolic Panel (04/21/2010 2:50 PM CEREAL MILLER) Albumin 4.1 3.5 - 5.0 G/DL SUNQUEST Aspartate 23 15 - 41 IU/L SUNQUEST Aminotransferas e Bilirubin Total 1.1 0.3 - 1.4 MG/DL SUNQUEST Protein Total 6.3 6.0 - 8.0 G/DL SUNQUEST Serum Calcium 9.5 8.8 - 10.5 MG/DL SUNQUEST Creatinine 1.0 0.6 - 1.3 MG/DL SUNQUEST Glucose 107 (H) 65 - 100 MG/DL SUNQUEST Alkaline 66 42 - 128 IU/L SUNQUEST Phosphatase Sodium 139 134 - 144 MEQ/L SUNQUEST Potassium 3.9 3.5 - 5.1 MEQ/L SUNQUEST Chloride 104 101 - 111 MEQ/L SUNQUEST Carbon Dioxide 29 23 - 32 MEQ/L SUNQUEST Blood Urea 28 (H) 8 - 26 MG/DL SUNQUEST Nitrogen Anion Gap 6 3 - 15 SUNQUEST Alanine 29 14 - 63 IU/L SUNQUEST Aminotransferas e eGFR Male 73 SUNQUEST Non-AA Comment: Chronic Kidney Disease less than 60 mL/min/1.73 sq.m Kidney failure less than 15 mL/min/1.73 sq.m eGFR Male AA 88 SUNQUEST Comment: Chronic Kidney Disease less than 60 mL/min/1.73 sq.m Kidney failure less than 15 mL/min/1.73 sq.m Specimen Blood Performing Organization Address [facility]/State[facility] Ph one Number [facility] [address] [place], [place] [address] SUNQUEST documented in this encounter Visit Diagnoses Not on filedocumented in this encounter
--- OUTSIDE RECORDS SUMMARY | 2019-09-14 20:43 | XMS REPORT | Encounter Summary ---
Author Author [facility] Organization [facility] Address Unknown Phone Unavailable Care Team Providers Care Reed Repairer Name Role Phone Ananth Black PCP Encounter Details Care Team Description Date Type Department Stephania Whitaker RN SAFETY LEAD- [address] [place] [address] 02/16/2010 [facility] [...] Notes * Stephania Whitaker RN FNP- - 02/16/2010 9:09 AM [place] Office [address] [place] [address] 02/18/2010 ANANTH BLACK MD [address] [facility] [place] [address] Re: CARL CHILDERS : 1935 Chart#: [id number] Dear Dr. BLACK: This is a followup note regarding CARL CHILDERS. He has completed his cardiac fili ting and I am writing to share the results with you. He had the following tests: 25 - OH Vit D: 39, ( 25-80) platelets: 02/12/2010 :Platelet - Platelet Count: 105 L TH/uL (140-400) Based on the above, I am recommending the following: - Decrease niaspan to 1000MG daily - Recheck platelets in 3-4 weeks Follow up is requested as planned. These test results along with my recommendations have been communicated to CARL CHILDERS. I hope this information is useful to you. If you should have any quest ions or concerns, please do not hesitate to contact me. Sincerely, Gita Whitaker RN, BC, SAFETY LEAD-C COMPOUNDER documented in this encounter Plan of Treatment Not on filedocumented as of this encounter Visit Diagnoses Not on filedocumented in this encounter
--- OUTSIDE RECORDS SUMMARY | 2019-09-14 20:43 | XMS REPORT | Encounter Summary ---
Author Author [facility] Organization [facility] Address Unknown Phone Unavailable Care Team Providers Care Kitchen Stewardess Name Role Phone Ananth Black PCP Encounter Details Care Team Description Date Type Department Stephania Whitaker RN SHOELACE TIPPING MACHINE OPERATOR- [address] [place] [address] 10/20/2010 [facility] [...] Reading Time Taken Comments Vital Sign 108/60 10/20/2010 11:38 AM CDT Blood Pressure 66 10/20/2010 11:38 AM CDT Pulse - - Temperature - - Respiratory Rate - - Oxygen Saturation - - Inhaled Oxygen Concentration 83 kg (183 lb) 10/20/2010 11:38 AM CDT overweight Weight 170.2 cm (5' 7") 10/20/2010 11:38 AM CDT Height 28.66 10/20/2010 11:38 AM CDT Body Mass Index documented in this encounter Progress Notes * Stephania Whitaker RN FNP-MANFRED - 10/20/2010 11:30 AM CDT [place] Office [address] [place] [address] October 20, 2010 ANANTH BLACK MD [address] [facility] [place] [address] [place] [address] RE: CARL CHILDERS : 1935 CHART #: [id number] Visit Provider: Gita Whitaker RN, BC, SHOELACE TIPPING MACHINE OPERATOR-C Visit Location: [facility] I had the pleasure of seeing CARL [...] 59 Yo) Known history of coronary artery disease Laboratory Results from today's visit are as follows: Date Collected: 10/20/2010 Fasting: Fasting Total Cholesterol: 125 HDL: 34 LDL: 73 Triglycerides: 92 Ratio: 3.68 Glucose 112 HbA1c 6.2 ALT 28 AST 32 Final Medications: Niacin 1000 Mg take 1 tablet (1000MG) by oral route every day at bedtime after a low-fat snack Hydrocodone Bit/acetaminophen 5 Mg-500mg take 1 capsule by oral route every 6 hours as [...] Mg Take one tablet by mouth daily [place]-3 Fatty Acids Take two capsules by mouth twice per day Zoloft 50 Mg Take one tablet by mouth daily Allergies: No Known Allergies Past Medical History: Anxiety Cholelithiasis Obesity Osteoporosis Perforated diverticulum Osteoarthritis Osteopenia Erectile Dysfunction Diverticulosis Colon polyps Gallbladder dysfunction BPH Squamous cell CA 2001 Sleep Apnea on CPAP 2003 Past Surgical History: Surgery for Squamous Cell cancer Appendectomy 1998 Colon resection 1998 Skin Cancer Removal 2001 Family History: Brother Diagnosed with HTN Mother Cause of was CVA at age 82. Brother Cause of was CRF at age 67. Father Cause of was AK at age 62. Brother Cause of was CABG at age 71. Sister Cause of was CA at age 86. Social History: Marital Status: Children: 3 Occupation: Retired Advance Directives: There are no advance directives. The patient has a living wi ll that was executed on 03/07/2007 Diet: Low fat/chol, Low salt Exercise: Regular. Bike 30 min daily Smoking: Non-smoker Alcohol: Currently drinks 9 [...] in the sitting position. The pulse is 66. The rhythm is regular. Const The patient is an overweight male. Pulm The respiratory pattern is nonlabored. M/S The patient's gait is normal. Neuro/Psych The patient is alert and oriented to time, person and place. The pa tient's mood is normal. No aphasia is apparent by exam. Exercise: Bike for 30 minutes daily. Circuit [place] for 20 minutes three times per week. Cardiac rehabilitation three times per week Summary and Recommendations: 1. Known history of coronary artery disease, currently without anginal symptoms. Last saw our exhauster, Dr. Osmin Holloway, in 09/2010. He will continue with annual appoin tments with our exhauster or sooner if deemed necessary for [facility]. 2. Dyslipidemia. LDL and triglycerides are optimally controlled. HDL is subopt imal. Mr. Childers does not report missing any exercise recently. He continues with his cardiac r ehabilitation as well as cycling and circuit training. He will continue with his excellent e xercise regimen. We will reassess his cholesterol profile in three to four months. If his HDL r emains low at his next visit, further recommendations will be made. At one time he was on 1500 m g of Niaspan. It was reduced to 1000 mg due to low platelets. His platelet count at his last visit was 130,000. We will reassess his platelet count today. We will keep you apprised of this t est result and further recommendations as available. 3. Peripheral vascular disease with renal stenting. 4. Hypertension, optimally controlled. 5. BMI of 28.70 with waist circumference of [address] Childers in t he overweight category. However, his waist circumference is 34 inches. As you know, we woul d like to see this less than 33.5. Mr. Childers has lost approximately 5 pounds since 06/2010 and a total of approximately 40 pounds since 09/2009. He will continue to maintain his exc ellent weight loss as well as work on an additional 5-pound weight loss. It is gratifying to see individuals maintaining positive lifestyle modifications to optimize their health. 6. His 25 hydroxy vitamin D blood test in 02/2010 was sufficient at 39. He will continue with his vitamin D supplementation. 7. Fasting blood sugar is in the prediabetic stage at 112. Hgb A1c is 6.2%. Mr Lexie Childers will continue to be diligent will continue to be diligent with cutting back on simple carbs a nd simple sugars in his diet in order to prevent type 2 diabetes mellitus in his life. He also rep orts that he is having a difficult time losing the last 5 to 10 pounds. He has kept an excellent diet d iary. I have recommended that he see Sherri Carbone, digital imaging technician, to assist him with the last 5- to 10-pound weight loss and continue to lower his fasting blood sugar and Hgb A1c. 8. History of sleep apnea. Dr. Holloway did recommend that Mr. Childers undergo a sleep study and follow up with a sleep apnea physician to see if his sleep apnea has changed si nce he has lost approximately 40 pounds. Testing Ordered on Today's Visit: Platelets Next Preventive Visit: In 4 Months We will apprise you of the above test results and further recommendations as the y are available. Thank you for allowing us to participate in the care of this nice patient. Pleas e do not hesitate to call should you have questions or concerns. Sincerely, Gita Wihtaker RN, MANFRED, SHOELACE TIPPING MACHINE OPERATOR-C Enrike/tls Supervising physician available for consultation is: Richard Carbone M.D. cc: CARL CHILDERS [address] [place] [address] T: 8:08pm F: 10/20/2010 Electronically signed by Stephania Whitaker RN SHOELACE TIPPING MACHINE OPERATOR-MANFRED at 10/20/2010 11:52 AM CDT documented in this encounter Plan of Treatment Not on filedocumented as of this encounter Visit Diagnoses Not on filedocumented in this encounter
--- OUTSIDE RECORDS SUMMARY | 2019-09-14 20:43 | XMS REPORT | Encounter Summary ---
Author Author [facility] Organization [facility] Address Unknown Phone Unavailable Care Team Providers Care Pharmacy Assistant Name Role Phone Charmaine Black PCP Encounter Details Care Team Description Date Type Department Tim Tate MD [address] [facility] [address] [place] [address] [phone] 09/17/2010 [facility] [...]
--- OUTSIDE RECORDS SUMMARY | 2019-09-14 20:43 | XMS REPORT | Encounter Summary ---
Author Author [facility] Organization [facility] Address Unknown Phone Unavailable Care Team Providers Care Forensic Photographer Name Role Phone Charmaine Black PCP Encounter Details Care Team Description Date Type Department Olman Holloway MD [address] [facility] [address] [place] [address] [phone] 09/22/2010 [facility] [...]
--- OUTSIDE RECORDS SUMMARY | 2019-09-14 20:44 | XMS REPORT | Encounter Summary ---
Author Author [facility] Organization [facility] Address Unknown Phone Unavailable Care Team Providers Care Kitman Name Role Phone PCP Unavailable Encounter Details Care Team Description Date Type Department Shade Pérez MD [address] [phone] [facility] [address] [place], [place] [phone] Social History Date Tobacco Use Types Packs/Day [...] 0 per tablet tablet by mouth daily 11/05/2009 10/09/2014 niacin (NIASPAN take 3 270 [...] Date/Time Associated Diag nosis COMPREHENSIVE METABOLIC Routine 01/27/2010 PANEL 12:10 PM SINGLE ENDING MACHINE OPERATOR documented in this encounter Results * Comprehensive Metabolic Panel (01/27/2010 12:10 PM SINGLE ENDING MACHINE OPERATOR) Albumin 4.4 3.5 - 5.0 G/DL SUNQUEST Aspartate 28 15 - 41 IU/L SUNQUEST Aminotransferas e Bilirubin Total 0.9 0.3 - 1.4 MG/DL SUNQUEST Protein Total 6.5 6.0 - 8.0 G/DL SUNQUEST Serum Calcium 9.6 8.8 - 10.5 MG/DL SUNQUEST Creatinine 1.0 0.6 - 1.3 MG/DL SUNQUEST Glucose 116 (H) 65 - 100 MG/DL SUNQUEST Alkaline 59 42 - 128 IU/L SUNQUEST Phosphatase Sodium 139 134 - 144 MEQ/L SUNQUEST Potassium 4.1 3.5 - 5.1 MEQ/L SUNQUEST Chloride 103 101 - 111 MEQ/L SUNQUEST Carbon Dioxide 29 23 - 32 MEQ/L SUNQUEST Blood Urea 28 (H) 8 - 26 MG/DL SUNQUEST Nitrogen Anion Gap 7 3 - 15 SUNQUEST Alanine 29 14 [...] Address City/State/Zipcode Ph one Number [facility]RL [address] [place], [place] [address] SUNQUEST documented in this encounter Visit Diagnoses Not on filedocumented in this encounter
--- OUTSIDE RECORDS SUMMARY | 2019-09-14 20:44 | XMS REPORT | Encounter Summary ---
Author Author [facility] Organization [facility] Address Unknown Phone Unavailable Care Team Providers Care Millinery Designer Name Role Phone Charmaine Black PCP Encounter Details Care Team Description Date Type Department [facility] Provider, MD Luc 12/18/2009 [facility] Result Social History Date [...] Procedure Name Priority Date/Time Associated Diag nosis ECHO HISTORICAL Routine 12/18/2009 documented in this encounter Results * Echo historical (12/18/2009) Specimen Narrative Performed At Procedure Category: ECHO NEXTGEN Procedure: Echocardiogram Procedure Summary: 1. Normal left ventr icular systolic function, with an estimated ejection fraction of 65%. 2. Mild mitral and tricuspid regurgitat ion. 3. Severe left atrial dilatation. 4. Mildly elevated pulmonary pressure ( 39 mmHg). 5. Small PFO based on a color Doppler e valuation. Compared with the prior study dated 10/13/2007 the degree of mitral r egurgitation appears slightly less prominent. Procedure Note Interface, Rad Conversion - 09/24/2014 2:41 PM CDT Procedure Category: ECHO Procedure: Echocardiogram Procedure Summary: 1. Normal left ventricular systolic function, with an estimated ejection fraction of 65%. 2. Mild mitral and tricuspid regurgitati on. 3. Severe left atrial dilatation. 4. Mildly elevated pulmonary pressure (3 9 mmHg). 5. Small PFO based on a color Doppler ev aluation. Compared with the prior study dated 10/13/2007 the degree of mitral regurgitation appears slightly less prominent. Performing Organization Address City/State/Zipcode Ph one Number NEXTGEN documented in this encounter Visit Diagnoses Not on filedocumented in this encounter
--- OUTSIDE RECORDS SUMMARY | 2019-09-14 20:44 | XMS REPORT | Encounter Summary ---
Author Author [facility] Organization [facility] Address Unknown Phone Unavailable Care Team Providers Care Manager Of Purchasing Name Role Phone PCP Unavailable Encounter Details Care Team Description Date Type Department Richard Freeman MD [address] [facility] [address] [place] [address] [phone] Stephania Whitaker RN [facility] [address] [place] [address] 02/12/2010 [facility] Encounter [address] [place] [address] Social History Date Tobacco Use Types Packs/Day [...] Priority Date/Time Associated Diag nosis PLATELET Routine 02/12/2010 5:17 PM GORE STITCHER VITAMIN D, 25-HYDROXY Routine 02/12/2010 5:17 PM GORE STITCHER documented in this encounter Results * Platelet (02/12/2010 5:17 PM GORE STITCHER) Platelet Count 105 (L) 140 - 400 TH/UL SUNQUEST Specimen Blood Performing Organization Address [facility] one Number [facility]RL [address] [place], [place] [address] SUNQUEST * Vitamin D, 25-Hydroxy (02/12/2010 5:17 PM GORE STITCHER) Vitamin D <5 NG/ML SUNQUEST 25-Hydroxy D2 Vitamin D 39 NG/ML SUNQUEST 25-Hydroxy D3 Vitamin D 39 25 - 80 NG/ML SUNQUEST 25-Hydroxy Comment: Test performed by [facility] [address] [place] [id number] Specimen Blood Performing Organization Address [facility] one Number [facility] [address] [place], [place] [address] SUNQUEST documented in this encounter Visit Diagnoses Not on filedocumented in this encounter
--- OUTSIDE RECORDS SUMMARY | 2019-09-14 20:44 | XMS REPORT | Encounter Summary ---
Author Author [facility] Organization [facility] Address Unknown Phone Unavailable Care Team Providers Care Reel Slitter Name Role Phone Charmaine Black PCP Encounter Details Care Team Description Date Type Department Stephania Whitaker RN SYSTEMS INTEGRATION ANALYST- [address] [place] [address] 02/12/2010 [facility] [...] Reading Time Taken Comments Vital Sign 110/60 02/12/2010 11:29 AM INTERVENTIONAL RADIOLOGY TECH Blood Pressure 66 02/12/2010 11:29 AM INTERVENTIONAL RADIOLOGY TECH Pulse - - Temperature - - Respiratory Rate - - Oxygen Saturation - - Inhaled Oxygen Concentration 88.5 kg (195 lb) 02/12/2010 11:29 AM INTERVENTIONAL RADIOLOGY TECH obese Weight 170.2 cm (5' 7") 02/12/2010 11:29 AM INTERVENTIONAL RADIOLOGY TECH Height 30.54 02/12/2010 11:29 AM INTERVENTIONAL RADIOLOGY TECH Body Mass Index documented in this encounter Progress Notes * Stephania Whitaker RN FNP-MANFRED - 02/12/2010 11:00 AM INTERVENTIONAL RADIOLOGY TECH [place] [facility] [address] [place] [id number] February 12, 2010 CHARMAINE BLACK MD [address] [facility] [place] [place] [address] RE: CARL CHILDERS : 1935 CHART #: [id number] Visit Provider: Gita Whitaker, RN, BC, SYSTEMS INTEGRATION ANALYST-C Visit Location: [facility] I had the pleasure [...] today's visit are as follows: Date Collected: 02/12/2010 Fasting: Fasting Total Cholesterol: 118 HDL: 52 LDL: 48 Triglycerides: 91 Ratio: 2.27 Glucose 131 HbA1c 6.3 ALT 23 AST 20 Final Medications: Niaspan 750 Mg take 2 tablet (1500MG) by ORAL route every day at bedtime Vitamin D 1000 Unit Take 1 tablet [...] Mg Take one tablet by mouth daily [place]-3 Fatty Acids Take two capsules by mouth twice per day Zoloft 50 Mg Take one tablet by mouth daily Allergies: No Known Allergies Family History: Brother Diagnosed with HTN Mother Cause of was CVA at age 82. Brother Cause of was CRF at age 67. Father Cause of was [place] at age 62. Brother Cause of was CABG at age 71. Sister Cause of was [place] at age 86. Social History: Marital Status: Children: 3 Occupation: Retired Advance Directives: There are no advance directives. The patient has a living wi ll that was executed on 03/07/2007 Diet: Low fat/chol, Low salt Exercise: Regular, treadmill 30 min x3 days, stationary bike 30 min daily, cyc le 20 mins daily Smoking: Non-smoker Alcohol: Currently drinks 9 oz. of beer weekly Caffeine: Caffeine use: <1 cup daily of coffee ROS: 12-point review of systems is negative Physical Exam: Vital Signs The patient is 5ft 7in tall, and weighs 195lbs. The BMI is 30.50. B lood pressure taken in the left arm is 110/60 mmHg in the sitting position. The pulse is 66. The rhythm is regular. Const The patient is an obese male. Pulm The respiratory pattern is nonlabored. M/S The patient's gait is normal. Neuro/Psych The patient is alert and oriented to time, person and place. The pa tient's mood is normal. No aphasia is apparent by exam. Exercise: Bike for 30 minutes daily. Treadmill for 30 minutes three times per week. Elliptical for 30 minutes twice weekly. Weight Training for 15 minutes three times per week. Summary and Recommendations: 1. Known history of coronary artery disease, currently without anginal symptoms. Last saw our fashion adviser, Dr. Osmin Holloway, in 09/2009. Mr. Childers will continue with eric l appointments with our fashion adviser or sooner if deemed necessary for complete exam and [facility] recommendations. 2. Carotid disease. Carotid duplex in 04/2006 showed moderate to severe atheros clerotic plaque bilaterally. He is without any disease, lightheadedness, syncope, or presyncop e. Dr. Holloway did recommend that he repeat a carotid duplex in one year. 3. Peripheral vascular disease with renal artery stenting. 4. Hypertension, optimally controlled. 5. Dyslipidemia, optimally controlled. In fact, this is one of the better ann sterol profiles we have seen from Mr. Childers. He will continue with the Niaspan and Lipitor medications . 6. Exercise regimen is excellent. Mr. Childers will continue with his excellent e xercise regimen. 7. BMI of 30.50 with waist circumference of [address] Childers in t he obese category. However, this is resolving. He has lost 25 pounds since 09/2009. M ost recently since 12/2009 he is down 11 pounds as well as 4 inches in his waist circumferen ce. It is truly gratifying to see individuals making and maintaining positive lifestyle modific ations to optimize their health. 8. We will check a 25 hydroxy vitamin D blood test. We will keep you apprised o f this test result and further recommendations as available. 9. We will check a platelet level. Prior platelet level in 12/2009 was 133. He is currently on Niaspan therapy. 10. Type 2 diabetes mellitus. Hgb A1c continues to improve. Fasting blood suga r is 131. Hgb A1c is down from 6.4% to today's value of 6.3%. He will continue to be diligent at cutting back on simple carbs and sugars in his diet as he has been able to maintain excellent c ontrol of his blood sugars by doing so. Testing Ordered on Today's Visit: 25 - OH Vit D platelets Next Preventive Visit: In 4 Months We will apprise you of the above test results and further recommendations as the y are available. Thank you for allowing us to participate in the care of this nice patient. Nohemi tao do not hesitate to call should you have questions or concerns. Sincerely, Gita Whitaker RN, BC, SYSTEMS INTEGRATION ANALYST-C [facility] Supervising physician available for consultation is: Richard Carbone M.D. cc: CARL CHILDERS [address] [place] [address] Dr. Shade Pérez F: 02/19/2010 RVENTIONAL RADIOLOGY TECH documented in this encounter Plan of Treatment Not on filedocumented as of this encounter Visit Diagnoses Not on filedocumented in this encounter
--- OUTSIDE RECORDS SUMMARY | 2019-09-14 20:44 | XMS REPORT | Encounter Summary ---
Author Author [facility] Organization [facility] Address Unknown Phone Unavailable Care Team Providers Care Machine Splitter Name Role Phone PCP Unavailable Encounter Details Care Team Description Date Type Department Shade Pérez MD [address] [id number] Type II or unspecified type diabetes jasmin litus without mention of complication, not stated as uncontrolled 01/06/2010 [facility] Encounter [address] [place], [place] [id number] Social History Date Tobacco Use Types Packs/Day [...]
--- OUTSIDE RECORDS SUMMARY | 2019-09-14 20:44 | XMS REPORT | Encounter Summary ---
Author Author [facility] Organization [facility] Address Unknown Phone Unavailable Care Team Providers Care Body Shop Worker Name Role Phone Benjie Montano PCP Encounter Details Care Team Description Date Type Department Desiree Herrera MD [address] [facility] [address] [place] [id number] 02/02/2010 [facility] Note [facility] [place] [address] [facility] [address] [place] [id number] Social History Date Tobacco Use Types Packs/Day Years Used Never Assessed Sex Assigned at Date Recorded Not on file Industry Job Start Date Occupation Not on file Not on file Not on file Travel End Travel History Travel Start No recent travel history available. documented as of this encounter Miscellaneous Notes * Miscellaneous - Desiree Herrera MD - 02/02/2010 1:53 PM ENGLISH LANGUAGE LEARNER TUTOR Verified Results Collected/Examined: Jan 27, 2010 2:46PM Test Result Flag Acceptable HL Comprehensive Metabolic Panel Albumin 4.4 g/dL 3.5-5.0 Aspartate Aminotransferase 28 [...] failure less than 15 mL/min/1.73 sq.m Discussion/Summary Labs are within acceptable ranges per Dr. Herrera. Continue with recommedations made at your appointment. If you have any questions or concerns, please call the office at . Thank you Aric COMMUNICATIONS FIELD TECHNICIAN ISH LANGUAGE LEARNER TUTOR * Miscellaneous - Desiree Herrera MD - 02/02/2010 1:53 PM ENGLISH LANGUAGE LEARNER TUTOR Verified Results Collected/Examined: Jan 27, 2010 2:46PM Test Result Flag Acceptable HL Comprehensive Metabolic Panel [Feb 02, 2010 1:53PM DESIREE HERRERA] Normal. Cont recs made at appt. Albumin 4.4 g/dL 3.5-5.0 Aspartate Aminotransferase 28 [...] failure less than 15 mL/min/1.73 sq.m Discussion/Summary Labs are within acceptable ranges per Dr. Herrera. Continue with recommedations made at your appointment. If you have any questions or concerns, please call the office at . Thank you Aric COMMUNICATIONS FIELD TECHNICIAN ISH LANGUAGE LEARNER TUTOR documented in this encounter Plan of Treatment Not on filedocumented as of this encounter Visit Diagnoses Not on filedocumented in this encounter
--- OUTSIDE RECORDS SUMMARY | 2019-09-14 20:44 | XMS REPORT | Encounter Summary ---
Author Author [facility] Organization [facility] Address Unknown Phone Unavailable Care Team Providers Care Manager Equity Name Role Phone Charmaine Black PCP Encounter Details Care Team Description Date Type Department Stephania Whitaker RN ROAD DRIVER- [address] [place] [address] 02/11/2010 [facility] - [facility] HISTORIC CLINI C Visit Social [...]
--- OUTSIDE RECORDS SUMMARY | 2019-09-14 20:44 | XMS REPORT | Encounter Summary ---
Author Author [facility] Organization [facility] Address Unknown Phone Unavailable Care Team Providers Care Food And Beverage Lead Name Role Phone Ananth Black PCP Encounter Details Care Team Description Date Type Department Stephania Whitaker RN SWORD SWALLOWER- [address] [place] [address] 12/18/2009 [facility] [...] Signs Reading Time Taken Comments Vital Sign 126/76 12/18/2009 3:31 PM CDT Blood Pressure 72 12/18/2009 3:31 PM CDT Pulse - - Temperature - - Respiratory Rate - - Oxygen Saturation - - Inhaled Oxygen Concentration 93.4 kg (206 lb) 12/18/2009 3:31 PM CDT obese Weight 170.2 cm (5' 7") 12/18/2009 3:31 PM CDT Height 32.26 12/18/2009 3:31 PM CDT Body Mass Index documented in this encounter Progress Notes * Stephania Whitaker RN FNP-MANFRED - 12/18/2009 2:45 PM CDT [place] [facility] [address] [place] [id number] December 18, 2009 ANANTH BLACK MD [address] [facility] [place] [address] [place] [address] RE: CARL CHILDERS : 1935 CHART #: [id number] Visit Provider: Gita Whitaker RN, BC, SWORD SWALLOWER-C Visit Location: [facility] I had the pleasure of seeing CARL [facility]ILDERS [facility] for cardi ovascular risk reduction. He is 74 years of age and presents with the following chief complaints: coronary artery disease, dyslipidemia, and hypertension. Risk factors include: Male greater than 45 years old HDL less than 40 Obesity hypertension Dyslipidemia Family hx (CAD < 60 Yo) History of CAD Laboratory Results from today's visit are as follows: Date Collected: 12/11/2009 Fasting: Fasting Total Cholesterol: 104 HDL: 32 LDL: 56 Triglycerides: 78 Ratio: 3.25 Glucose 117 HbA1c 6.4 ALT 39 AST 24 Fibrinogen 366 HS-CRP 2.38 Lp(a) 33 Final Medications: Niaspan 750 Mg take 2 tablet (1500MG) by ORAL route every day at bedtime Vitamin D 1000 Unit Take 1 tablet by mouth twice daily Lipitor 40 Mg take 1 tablet (40MG) by ORAL route every day Cardiodaily 1 take 1 tablet (20MG) by ORAL route every day Aspirin 325 Mg Take one tablet by mouth daily Toprol XL 25 Mg Take one tablet by mouth in the AM. Prilosec OTC 20 Mg Take one tablet by mouth daily [place]-3 Fatty Acids Take two capsules by mouth [...] at age 66. Father Cause of was [place] at age 62. Brother Cause of was CABG at age 71. Sister Cause of was [place] at age 86. Social History: Marital Status: Children: 3 Occupation: - Retired Advance Directives: There are no advance directives. The patient has a living wi ll that was executed on 03/07/2007 Diet: Low fat/chol, Low salt Exercise: Regular, treadmill 30min x3days, stationary bike 30min daily, cycle 2 0mins daily Smoking: Non-smoker Alcohol: Currently drinks 9 oz. of beer weekly Caffeine: Caffeine use: <1 cup daily of coffee ROS: 12-point review of systems is negative with the following exceptions: Pulmonary: Sleep apnea Physical Exam: Vital Signs The patient is 5ft 7in tall, and weighs 206lbs. The BMI is 32.30. B lood pressure taken in the left arm is 126/76 mmHg in the sitting position. The pulse is 72. The rhy thm is regular. Const The patient is an obese male. Pulm The respiratory pattern is nonlabored. M/S The patient's gait is normal. Neuro/Psych The patient is alert and oriented to time, person and place. The pa tient's mood is normal. No aphasia is apparent by exam. Exercise: treadmill for 30 minutes three times per week. Cycles for 15 minutes daily. stationary bike for 30 minutes daily. Current Diet: Follows a low carbohydrate diet Summary and Recommendations: 1. Known history of coronary artery disease, currently without anginal symptoms. Last saw our advertising copy writer, Dr. Osmin Holloway, in 09/13. The patient will plan on keeping annual appointments with our advertising copy writer for a complete cardiovascular exam and for further recommendations. 2. Carotid disease. Carotid duplex in 2006 showed moderate to severe atheroscle rotic plaque bilaterally. He is without any dizziness, lightheadedness, syncope or presyncope. Dr. Holloway did recommend that he repeat a carotid duplex next year. 3. Peripheral vascular disease, with right renal artery stenting. 4. Hypertension, optimally controlled. 5. Dyslipidemia. LDL and triglycerides are optimally controlled. HDL is subopt imally controlled. As you know, we would like to see his HDL of 32, greater minal n 45 for optimal benefit. I did recommend that he increase his Niaspan from 1000 mg daily to 1500 mg daily. This will assist with HDL raising and lowering his Lipoprotein (a), and well as fibrinogen. We will reassess his fasting lipid pro file in three to four months. He will continue with his exercise and excellent weight loss efforts. 6. Exercise regimen is excellent. He will continue with this. 7. Body mass index 32.30 with a waist circumference of 40.[address] jenniffer benavidez in the obese category; however, this is resolving. He is down five pounds sin ce 09/10. He will continue to maintain his weight loss and work on an Kickit Witha l five pound weight loss over the next three to four months. 8. 25-Hydroxy vitamin D level previously was 34. He has been taking 2000 IU of vitamin D daily. He will continue with this supplementation and we will reasses s his level at his next visit. 9. Diabetes mellitus. Hemoglobin A1c has improved just in one month. Previousl y his value was 6.6 and it is 6.4 today. He has done an excellent job at [employer] and lifestyle modifications. 10. High-sensitivity C-reactive protein was slightly elevated at 2.38. He repor ts that he has an infection in his teeth, which he is going to have some teeth p ulled here in the near future. Testing Ordered on Today's Visit: Platelets Next Preventive Visit: In 2 Months We will apprise you of the above test results and further recommendations as the y are available. Thank you for allowing us to participate in the care of this nice patient. Pleas e do not hesitate to call should you have questions or concerns. Sincerely, Gita Whitaker RN, BC, SWORD SWALLOWER-C [facility]/bem Supervising physician available for consultation is: Shaun Tom M.D. cc: CARL CHILDERS [address] [place] [address] F: 12/23/2009 documented in this encounter Plan of Treatment Not on filedocumented as of this encounter Visit Diagnoses Not on filedocumented in this encounter
--- OUTSIDE RECORDS SUMMARY | 2019-09-14 20:44 | XMS REPORT | Encounter Summary ---
Author Author [facility] Organization [facility] Address Unknown Phone Unavailable Care Team Providers Care Trimmer And Borer Machine Operator Name Role Phone Benjie Montano PCP Encounter Details Care Team Description Date Type Department [facility] Luc Prieto MD 01/02/2010 [facility] - Hist [facility]IC [facility] C Visit Social History Date Tobacco Use Types Packs/Day Years Used Never Assessed Sex Assigned at Date Recorded Not on file Industry Job Start Date Occupation Not on file Not on file Not on file Travel End Travel History Travel Start No recent travel history available. documented as of this encounter Progress Notes * [facility] ProviderLuc MD - 01/02/2010 9:14 AM T [place] [facility] [address] [place] [address] 01/05/2010 ANANTH BRADY MD [address] [facility] [place] [address] Re: CARL MOORECONY : 1935 Chart#: [id number] Dear Dr. BRADY: This is a followup note regarding CARL CHILDERS. He has completed his laboratory testing and I am writing to share the results with you. He had the following tests: Platelets: 12/18/09 PLT 133 .........140-400 TH/uL Based on the above, I am recommending the following: - continue medical treatment - continued compliance with risk factor modification - we will recheck the platelet count at Mr. Childers's next office visit. Follow up is requested as planned. These test results along with my recommendations have been communicated to CARL CHILDERS. I hope this information is useful to you. If you should have any quest ions or concerns, please do not hesitate to contact me. Sincerely, Gita Whitaker RN, BC, CLIENT SERVICES ANALYST-C documented in this encounter Plan of Treatment Not on filedocumented as of this encounter Visit Diagnoses Not on filedocumented in this encounter
--- OUTSIDE RECORDS SUMMARY | 2019-09-14 20:44 | XMS REPORT | Encounter Summary ---
Author Author [facility] Organization [facility] Address Unknown Phone Unavailable Care Team Providers Care Deli Cook Name Role Phone PCP Unavailable Encounter Details Care Team Description Date Type Department Stephania Whitaker, RN [facility] [address] [place] [address] [facility] [address] [place], [place] [id number] Social History Date Tobacco Use Types Packs/Day [...] Priority Date/Time Associated Diag nosis PLATELET Routine 12/18/2009 4:30 PM CDT documented in this encounter Results * Platelet (12/18/2009 4:30 PM CDT) Platelet Count 133 (L) 140 - 400 TH/UL SUNQUEST Specimen Blood Performing Organization Address City/State/[facility] Ph one Number [facility] [address] [place], [place] [address] SUNQUEST documented in this encounter Visit Diagnoses Not on filedocumented in this encounter
--- OUTSIDE RECORDS SUMMARY | 2019-09-14 20:44 | XMS REPORT | Encounter Summary ---
Author Author [facility] Organization [facility] Address Unknown Phone Unavailable Care Team Providers Care Income Tax Preparer Name Role Phone Charmaine Black PCP Encounter Details Care Team Description Date Type Department Desiree Herrera MD [address] [address] [phone] 01/27/2010 Hist-Appointmen [facility] END [facility]ST CL [...] Reading Time Taken Comments Vital Sign 138/70 01/27/2010 11:53 AM ELEMENTARY S[employer]OL PRINCIPAL Blood Pressure 78 01/27/2010 11:53 AM ELEMENTARY SCHOOL PRINCIPAL Pulse - - Temperature - - Respiratory Rate - - Oxygen Saturation - - Inhaled Oxygen Concentration 89.4 kg (197 lb) 01/27/2010 11:53 AM ELEMENTARY SCHOOL PRINCIPAL Weight 172.7 cm (5' 8") 01/27/2010 11:53 AM ELEMENTARY SCHOOL PRINCIPAL Height 29.95 01/27/2010 11:53 AM ELEMENTARY SCHOOL PRINCIPAL Body Mass Index documented in this encounter Progress Notes * Desiree Herrera MD - 01/27/2010 11:40 AM ELEMENTARY SCHOOL PRINCIPAL History of Present Illness Diabetes-[facility]: The patient's visit is for a routine clinic follow-up of type II diabetes [facility]. The patient's last clinic visit was 2 month(s) ago. No changes in management were made at the last visit. Symptoms: weight loss, but no polydipsia, no polyuria, appetite not increased, n o fatigue and no episodes of hypoglycemia.There is no known event that preceded symptom onset. Home measurement readings show Fasting blood sugars are generally less than 120. No associated symptoms are reported. The patient is due for a hemoglobin A1C. By report, there is good compliance wit h treatment, good tolerance of treatment and good symptom control. Current treat ment also includes diabetic teaching, glucose monitoring, diabetic diet (limits carbs to less than 60 g per meal) and regular exercise. He was previously evalua beto by me. Past evaluation has included hemoglobin A1c, metabolic panel and opht halmology examination (December 2009). Pertinent medical history: no nephropathy, no retinopathy and no neuropathy. Current Meds 1 CardioTabs CardioDaily; TAKE 1 TABLET DAILY; Status: ACTIVE 2 CardioTabs Treichlers 3; TAKE 3 TABLETS BY MOUTH DAILY; [...] Drug Allergies Vitals Vital Signs [Filter Applied: Current Encounter] 27Jan2010 11:53AM BMI Calculated 29.95 BSA Calculated 2.03 Height 68 in Weight 197 lb Systolic 138 Diastolic 70 Heart Rate 78 Review of Systems A 10 point review of systems was reviewed and otherwise negative unless noted a s positive above in history of present illness. Active Problems Problems 1 Anxiety (Symptom) 300.00 Status: Active 2 Benign Polyps Of The Large Intestine 211.3 Status: Active 3 Benign Prostatic Hypertrophy 600.00 Status: Active 4 Carotid Artery Stenosis 433.10 Status: Active 5 Cholelithiasis 574.20 Status: Active 6 Coronary Artery Disease 414.00 s/p 4 vv CABG 6/28/08; Status: Active 7 Depression 311 Status: Active 8 Diabetic Peripheral Neuropathy 357.2 Status: Active; Last Assessed: 27Jan2010 12:08PM 9 Diverticulosis 562.10 Status: Active 10 Dyslipidemia 272.4 Status: Active; Last Assessed: 27Jan2010 12:08PM 11 Generalized Osteoarthritis Of Multiple Sites 715.09 Status: Active 12 Hypertension 401.9 Status: Active; Last Assessed: 27Jan2010 12:08PM 13 Male Erectile Disorder 302.72 Status: Active 14 Obesity 278.00 Status: Active 15 Obstructive Sleep Apnea 327.23 Status: Active 16 Osteoarthrosis 715.90 Status: Active 17 Peripheral Vascular Disease 443.9 Status: Active 18 Renal Artery Stenosis 440.1 s/p stent; Status: Active 19 Squamous Cell Carcinoma Of The Skin 173.9 s/p resection; Status: Active 20 Type II Diabetes Mellitus - Uncomplicated, Controlled 250.00 Status: Active; Last Assessed: 27Jan2010 12:06PM Social History Problems Being A Social Drinker has 2-3 beers a week; Status: Active Exercising Regularly Status: Active Uses Safety Equipment - Seatbelts Status: Active Denied History of Smoking Category: History of; Status: Denied Physical Exam General: Patient is pleasant and cooperative and otherwise in no apparent distr ess. Psych: Patient is alert and oriented x3. Neuro: No focal deficits. Two out of four bilateral biceps deep tendon reflexes . No tremor with outstretched hands. Monofilament sensation intact and bilater al feet. Head:Normocephalic atraumatic. Eyes: Anicteric sclera. No exophthalmus or lid lag. Throat: Clear oropharynx. Neck: No cervical lymphadenopathy. No thyromegaly. No thyroid nodules. Lungs: Clear to auscultation bilaterally. Heart: Regular rate and rhythm. Abdomen: Positive bowel sounds. Soft. Nontender to palpation. No lipohypertro phy. Extremities: No edema is noted. 2/4 bilateral dorsalis pedis pulses. No cyanos is or delayed capillary refill. Musculoskeletal: 5/5 proximal and distal muscle tone in all extremities. Skin: No rashes, dry skin, or moist skin noted. No foot sores, calluses, or ulc ers noted. Monofilament Testing: did not show decreased sensation of the foot Assessment 1 Type II Diabetes Mellitus - Uncomplicated, Controlled 250.00 Status: Active; Last Assessed: 27Jan2010 12:06PM 2 Diabetic Peripheral Neuropathy 357.2 Status: Active; Last Assessed: 27Jan2010 12:08PM 3 Dyslipidemia 272.4 Status: Active; Last Assessed: 27Jan2010 12:08PM 4 Hypertension 401.9 Status: Active; Last Assessed: 27Jan2010 12:08PM Plan Dyslipidemia (272.4) 1 Lipid Profile Status: Hold For - Hold for Specimen Collection Requested for: [id number] Ordered; For: Dyslipidemia (272.4); Ordered By: DESIREE HERRERA Order Comments: Please fax results to [phone]; Attn: Dr. Herrera Due: [id number] 1. Diabetes mellitus 2. Complicated by neuropathy. Controlled based on hemog lobin A1c at 6.3 percent today. Patient has managed to decrease his hemoglobin A1c to goal with diet and exercise. He should continue regular exercise daily, both cardio and resistance training with weights, and his current carbohydrate r estriction at 45 g per meal. He should continue monitoring his fingerstick gluc ose one to 2 times daily. If his fasting readings are consistently greater than 120, and readings rest of the day consistently greater than 140, he should cont act me. Otherwise, I will see him back in clinic in 3 months. 2. Dyslipidemia. I would like to repeat a lipid panel, but patient would like to wait until his wellness appointment, which is scheduled for 02/12/2010 to joanna id duplicate labs. I will therefore give him a lab requistion to have this perf ormed at his wellness appointment. If his lipids are still above goal, namely h is triglyceride level, I will provide instructions on medication titration. He should otherwise continue Lipitor and Niaspan. 3. Hypertension. His blood pressure has improved, but is still mildly above go al. His primary physician and/or butter printer should titrate his antihypertensi ve regimen to get his blood pressure less than 130/80. CC: Charmaine Black M.D. Olman Holloway M.D. Signatures DESIREE HERRERA M.D.; Jan 27 2010 9:22PM (Author) E[employer]ARY SCHOOL PRINCIPAL documented in this encounter Plan of Treatment Not on filedocumented as of this encounter Procedures Comments Procedure Name Priority Date/Time Associated Diag nosis HEMOGLOBIN A1C Routine 01/27/2010 11:58 AM ELEMENTARY SCHOOL PRINCIPAL GLUCOSE Routine 01/27/2010 11:54 AM ELEMENTARY SCHOOL PRINCIPAL documented in this encounter Results * Hemoglobin A1C (01/27/2010 11:58 AM ELEMENTARY SCHOOL PRINCIPAL) Hemoglobin A1C 6.3 (A) 0 OFFICE ENTERED Specimen Performing Organization Address City/State/Zipcode Ph one Number OFFICE ENTERED * Glucose (01/27/2010 11:54 AM ELEMENTARY SCHOOL PRINCIPAL) Glucose 127 0 OFFICE ENTERED Specimen Performing Organization Address City/State[facility] Ph one Number OFFICE ENTERED documented in this encounter Visit Diagnoses Not on filedocumented in this encounter
--- OUTSIDE RECORDS SUMMARY | 2019-09-14 20:44 | XMS REPORT | Encounter Summary ---
Author Author [facility] Organization [facility] Address Unknown Phone Unavailable Care Team Providers Care Gas Load Dispatcher Name Role Phone Charmaine Black PCP Encounter Details Care Team Description Date Type Department Stephania Whitaker RN CLOTH SHRINKER- [address] [place] [address] 02/13/2010 [facility] Visit Social [...]
--- OUTSIDE RECORDS SUMMARY | 2019-09-14 20:44 | XMS REPORT | Encounter Summary ---
Author Author [facility] Organization [facility] Address Unknown Phone Unavailable Care Team Providers Care Nanny Caregiver Name Role Phone PCP Unavailable Encounter Details Care Team Description Date Type Department Shade Pérez MD [address] [id number] Coronary atherosclerosis of unspecified type of vessel, [place] or graft [facility] [address] [place], [place] [id number] Social History Date Tobacco Use Types Packs/Day [...] as of this encounter Visit Diagnoses Diagnosis Coronary atherosclerosis of unspecified type of vessel, agua caliente or graft documented in this encounter
--- OUTSIDE RECORDS SUMMARY | 2019-09-14 20:44 | XMS REPORT | Encounter Summary ---
Author Author [facility] Organization [facility] Address Unknown Phone Unavailable Care Team Providers Care Laminator Name Role Phone Charmaine Black PCP Encounter Details Care Team Description Date Type Department [facility] Provider, MD Luc 12/18/2009 [facility] [...] Name Priority Date/Time Associated Diag nosis ECHO EJECTION FRACTION Routine 12/18/2009 HISTORICAL 11:20 AM CDT documented in this encounter Results * Echo Ejection Fraction historical (12/18/2009 11:20 AM CDT) Ejection 65Comment: Echo PROSOLV Fraction Specimen Performing Organization Address City/State/Zipcode Ph one Number PROSOLV documented in this encounter Visit Diagnoses Not on filedocumented in this encounter
--- OUTSIDE RECORDS SUMMARY | 2019-09-14 20:45 | XMS REPORT | Encounter Summary ---
Author Author [facility] Organization [facility] Address Unknown Phone Unavailable Care Team Providers Care Health Educator Name Role Phone Charmaine Black PCP Encounter Details Care Team Description Date Type Department Stephania Whitaker RN HOME HEALTH CLINICAL LIAISON- [address] [place] [address] 11/06/2009 [facility] - [facility] Visit Social [...]
--- OUTSIDE RECORDS SUMMARY | 2019-09-14 20:45 | XMS REPORT | Encounter Summary ---
Author Author [facility] Organization [facility] Address Unknown Phone Unavailable Care Team Providers Care Bucket Operator Name Role Phone Charmaine lBack PCP Encounter Details Care Team Description Date Type Department Benjie Palomino MD No Forwarding Address 10/27/2009 [facility] Visit Social History [...]
--- OUTSIDE RECORDS SUMMARY | 2019-09-14 20:45 | XMS REPORT | Encounter Summary ---
Author Author [facility] Organization [facility] Address Unknown Phone Unavailable Care Team Providers Care Fruit Raiser Name Role Phone Charmaine Black PCP Encounter Details Care Team Description Date Type Department Mumtaz Maldonado MD [address] [place] [address] [phone] 11/03/2009 [facility] [...]
--- OUTSIDE RECORDS SUMMARY | 2019-09-14 20:45 | XMS REPORT | Encounter Summary ---
Author Author [facility] Organization [facility] Address Unknown Phone Unavailable Care Team Providers Care Head Loft Worker Name Role Phone PCP Unavailable Encounter Details Care Team Description Date Type Department Shade Pérez MD [address] [id number] [facility] [address] [place], [place] [phone] Social History Date Tobacco Use Types Packs/Day [...] 1200 mg of EPA/DHA) BY MOUTH DAILY 09/22/2009 10/09/2014 cholecalciferol, vitamin 0 D3, (VITAMIN [...] day at bedtime after a low-fat snack 02/07/2007 10/09/2014 olmesartan-hydrochlorothi 0 0 azide (BENICAR [...] Date/Time Associated Diag nosis RENAL PANEL Routine 11/25/2009 12:25 PM CDT documented in this encounter Results * Renal Panel (11/25/2009 12:25 PM CDT) Sodium 138 134 - 144 MEQ/L SUNQUEST Potassium 4.0 3.5 - 5.1 MEQ/L SUNQUEST Chloride 103 101 - 111 MEQ/L SUNQUEST Carbon Dioxide 30 23 - 32 MEQ/L SUNQUEST Creatinine 1.0 0.6 - 1.3 MG/DL SUNQUEST Blood Urea 29 (H) 8 - 26 MG/DL SUNQUEST Nitrogen Glucose 104 (H) 65 - 100 MG/DL SUNQUEST Anion Gap 5 3 - 15 SUNQUEST Phosphorus 3.0 2.5 - 4.5 MG/DL SUNQUEST Albumin 4.3 3.5 - 5.0 G/DL SUNQUEST Calcium 10.0 8.8 - 10.5 MG/DL SUNQUEST eGFR Male AA 88 SUNQUEST Comment: Chronic Kidney Disease less than 60 mL/min/1.73 sq.m Kidney failure less than 15 mL/min/1.73 sq.m eGFR Male 73 SUNQUEST Non-AA Comment: Chronic Kidney Disease less than 60 mL/min/1.73 sq.m Kidney failure less than 15 mL/min/1.73 sq.m Specimen Blood Performing Organization Address City/State/Zipcode Ph one Number [facility] [address] [place] [address] SUNQUEST documented in this encounter Visit Diagnoses Not on filedocumented in this encounter
--- OUTSIDE RECORDS SUMMARY | 2019-09-14 20:45 | XMS REPORT | Encounter Summary ---
Author Author [facility] Organization [facility] Address Unknown Phone Unavailable Care Team Providers Care Final Application Reviewer Name Role Phone Benjie Montano PCP Encounter Details Care Team Description Date Type Department Desiree Herrera MD [address] [facility] [address] [place] [phone] 11/25/2009 [facility] Note [facility] [place] 4[address] [facility] [address] [place] [phone] Social History Date Tobacco Use Types Packs/Day Years Used Never Assessed Sex Assigned at Date Recorded Not on file Industry Job Start Date Occupation Not on file Not on file Not on file Travel End Travel History Travel Start No recent travel history available. documented as of this encounter Miscellaneous Notes * Miscellaneous - Desiree Herrera MD - 11/25/2009 11:40 AM CDT Verified Results Collected/Examined: Nov 25, 2009 3:44PM Test Result Flag Acceptable [facility] Renal Panel Sodium 138 MEQ/L 134-144 Potassium 4.0 MEQ/L 3.5-5.1 Chloride 103 MEQ/L 101-111 Carbon Dioxide 30 MEQ/L 23-32 Glucose 104 mg/dL H 65-100 Anion Gap 5 3-15 Calcium 10.0 mg/dL 8.8-10.5 Creatinine 1.0 mg/dL 0.6-1.3 Blood Urea Nitrogen 29 mg/dL H 8-26 Phosphorus 3.0 mg/dL 2.5-4.5 Albumin 4.3 g/dL 3.5-5.0 Gfrm Aa 88 Chronic Kidney Disease less than 60 mL/min/1.73 sq.m Kidney failure less than 15 mL/min/1.73 sq.m Gfrm Non Aa 73 Chronic Kidney Disease less than 60 mL/min/1.73 sq.m Kidney failure less than 15 mL/min/1.73 sq.m Discussion/Summary 11/25/2009 6:13PM Labs are stable when compared with past labs. Will await echocardiogram of hear t before deciding which medication to add for diabetes control, if necessary at that time. Continue current diabetes treatment with diet and exercise. DESIREE HERRERA * Miscellaneous - Desiree Herrera MD - 11/25/2009 11:40 AM CDT Verified Results Collected/Examined: Nov 25, 2009 3:44PM Test Result Flag Acceptable [facility] Renal Panel [Nov 25, 2009 6:16PM DESIREE HERRERA] Stable. Wait on 2D echo b/4 deciding b/w Metformin and Actos tx. Pt to cont prema toring FSG, and cont diet and excercise tx for DM. If fasting glucose levels imp rove, may not need tx. Sodium 138 MEQ/L 134-144 Potassium 4.0 MEQ/L 3.5-5.1 Chloride 103 MEQ/L 101-111 Carbon Dioxide 30 MEQ/L 23-32 Glucose 104 mg/dL H 65-100 Anion Gap 5 3-15 Calcium 10.0 mg/dL 8.8-10.5 Creatinine 1.0 mg/dL 0.6-1.3 Blood Urea Nitrogen 29 mg/dL H 8-26 Phosphorus 3.0 mg/dL 2.5-4.5 Albumin 4.3 g/dL 3.5-5.0 Gfrm Aa 88 Chronic Kidney Disease less than 60 mL/min/1.73 sq.m Kidney failure less than 15 mL/min/1.73 sq.m Gfrm Non Aa 73 Chronic Kidney Disease less than 60 mL/min/1.73 sq.m Kidney failure less than 15 mL/min/1.73 sq.m Discussion/Summary 11/25/2009 6:13PM Labs are stable when compared with past labs. Will await echocardiogram of hear t before deciding which medication to add for diabetes control, if necessary at that time. Continue current diabetes treatment with diet and exercise. DESIREE HERRERA documented in this encounter Plan of Treatment Not on filedocumented as of this encounter Visit Diagnoses Not on filedocumented in this encounter
--- OUTSIDE RECORDS SUMMARY | 2019-09-14 20:45 | XMS REPORT | Encounter Summary ---
Author Author [facility] Organization [facility] Address Unknown Phone Unavailable Care Team Providers Care Adobe Architect Name Role Phone Charmaine Black PCP Encounter Details Care Team Description Date Type Department Mumtaz Maldonado MD [address] [place] [address] [phone] 10/29/2009 [facility] [...]
--- OUTSIDE RECORDS SUMMARY | 2019-09-14 20:45 | XMS REPORT | Encounter Summary ---
Author Author [facility] Organization [facility] Address Unknown Phone Unavailable Care Team Providers Care Remotely Piloted Vehicle Controller Name Role Phone Charmaine Black PCP Encounter Details Care Team Description Date Type Department Nahum Rodriguez MD [address] [facility] [address] [place] [id number] [phone] 10/27/2009 [facility] Visit Social History Date [...]
--- OUTSIDE RECORDS SUMMARY | 2019-09-14 20:45 | XMS REPORT | Encounter Summary ---
Author Author [facility] Organization [facility] Address Unknown Phone Unavailable Care Team Providers Care Salvage Laborer Name Role Phone Benjie Montano PCP Encounter Details Care Team Description Date Type Department Desiree Herrera MD [address] [facility] [address] [place] [phone] 10/15/2009 [facility] Note [facility] [place] [address] [facility] [address] [place] [address] Social History Date Tobacco Use Types Packs/Day Years Used Never Assessed Sex Assigned at Date Recorded Not on file Industry Job Start Date Occupation Not on file Not on file Not on file Travel End Travel History Travel Start No recent travel history available. documented as of this encounter Miscellaneous Notes * Miscellaneous - Desiree Herrera MD - 10/15/2009 8:45 AM CDT Verified Results Collected/Examined: Oct 14, 2009 5:40PM Test Result Flag Acceptable HL Renal Panel Sodium 138 MEQ/L 134-144 Potassium 4.5 MEQ/L 3.5-5.1 Chloride 104 MEQ/L 101-111 Carbon Dioxide 29 MEQ/L 23-32 Glucose 106 mg/dL H 65-100 Anion Gap 5 3-15 Calcium 9.9 mg/dL 8.8-10.5 Creatinine 1.1 mg/dL 0.6-1.3 Blood Urea Nitrogen 23 mg/dL 8-26 Phosphorus 3.3 mg/dL 2.5-4.5 Albumin 4.5 g/dL 3.5-5.0 Gfrm Aa 79 Chronic Kidney Disease less than 60 mL/min/1.73 sq.m Kidney failure less than 15 mL/min/1.73 sq.m Gfrm Non Aa 65 Chronic Kidney Disease less than 60 mL/min/1.73 sq.m Kidney failure less than 15 mL/min/1.73 sq.m HL Microalbumin Random Microalbumin Mg/L 0.24 mg/dL Creatinine, Urine Random Quant 76.1 mg/dL Microalbumin/Creatinine Ratio 3.15 ug/mg 0.00-16.00 Discussion/Summary Oct 15, 2009 8:42AM These are normal. No evidence of damage to your kidneys from the diabetes based on the urine test. Proceed with recommendations made in clinic. DESIREE HERRERA * Miscellaneous - Desiree Herrera MD - 10/15/2009 8:45 AM CDT Verified Results Collected/Examined: Oct 14, 2009 5:40PM Test Result Flag Acceptable [facility] Renal Panel [Oct 15, 2009 8:45AM DESIREE HERRERA] Nml. Neg Ur MAB:Cr. Continue recs made in clinic. Sodium 138 MEQ/L 134-144 Potassium 4.5 MEQ/L 3.5-5.1 Chloride 104 MEQ/L 101-111 Carbon Dioxide 29 MEQ/L 23-32 Glucose 106 mg/dL H 65-100 Anion Gap 5 3-15 Calcium 9.9 mg/dL 8.8-10.5 Creatinine 1.1 mg/dL 0.6-1.3 Blood Urea Nitrogen 23 mg/dL 8-26 Phosphorus 3.3 mg/dL 2.5-4.5 Albumin 4.5 g/dL 3.5-5.0 Gfrm Aa 79 Chronic Kidney Disease less than 60 mL/min/1.73 sq.m Kidney failure less than 15 mL/min/1.73 sq.m Gfrm Non Aa 65 Chronic Kidney Disease less than 60 mL/min/1.73 sq.m Kidney failure less than 15 mL/min/1.73 sq.m HL Microalbumin Random [Oct 15, 2009 8:45AM DESIREE HERRERA] Nml. Neg Ur MAB:Cr. Continue recs made in clinic. Microalbumin Mg/L 0.24 mg/dL Creatinine, Urine Random Quant 76.1 mg/dL Microalbumin/Creatinine Ratio 3.15 ug/mg 0.00-16.00 Discussion/Summary Oct 15, 2009 8:42AM These are normal. No evidence of damage to your kidneys from the diabetes based on the urine test. Proceed with recommendations made in clinic. DESIREE HERRERA documented in this encounter Plan of Treatment Not on filedocumented as of this encounter Visit Diagnoses Not on filedocumented in this encounter
--- OUTSIDE RECORDS SUMMARY | 2019-09-14 20:45 | XMS REPORT | Encounter Summary ---
Author Author [facility] Organization [facility] Address Unknown Phone Unavailable Care Team Providers Care Woods Laborer Name Role Phone Charmaine Black PCP Encounter Details Care Team Description Date Type Department Shade Pérez MD [address] [address] [phone] 10/14/2009 [facility]-Appointmen [facility] END [facility] CL [...] Signs Reading Time Taken Comments Vital Sign 130/78 10/14/2009 1:42 PM CDT Blood Pressure 64 10/14/2009 1:42 PM CDT Pulse - - Temperature - - Respiratory Rate - - Oxygen Saturation - - Inhaled Oxygen Concentration 97.3 kg (214 lb 9.6 oz) 10/14/2009 1:42 PM CDT Weight 172.7 cm (5' 8") 10/14/2009 1:42 PM CDT Height 32.63 10/14/2009 1:42 PM CDT Body Mass Index documented in this encounter Progress Notes * Shade Pérez MD - 10/14/2009 1:20 PM CDT Saw pt. after Dr. Pérez. Educated pt. on the amount of carbohydrates Dr. Pérez is recommended per meal (45-60 gms/meal). Gave him some written resources to us e to get started on this. [facility] will [facility] for his full education. Electronically signed by:MAX PEREZ Oct 14 2009 2:49PM [employer] Author documented in this encounter Plan of Treatment Not on filedocumented as of this encounter Procedures Comments Procedure Name Priority Date/Time Associated Diag nosis HEMOGLOBIN A1C Routine 10/14/2009 1:47 PM CDT GLUCOSE Routine 10/14/2009 1:44 PM CDT documented in this encounter Results * Hemoglobin A1C (10/14/2009 1:47 PM CDT) Hemoglobin A1C 6.4 (AA) 0 OFFICE ENTERED Specimen Performing Organization Address City/State/Zipcode Ph one Number OFFICE ENTERED * Glucose (10/14/2009 1:44 PM CDT) Glucose 124 0 OFFICE ENTERED Specimen Performing Organization Address City/State[facility] Number OFF[facility] ENTERED documented in this encounter Visit Diagnoses Not on filedocumented in this encounter
--- OUTSIDE RECORDS SUMMARY | 2019-09-14 20:45 | XMS REPORT | Encounter Summary ---
Author Author [facility] Organization [facility] Address Unknown Phone Unavailable Care Team Providers Care Specifications Checker Name Role Phone Charmaine Black PCP Encounter Details Care Team Description Date Type Department Stephania Whitaker RN CEMETERY MANAGER- [address] [place] [address] 11/24/2009 [facility] Visit Social History Date [...]
--- OUTSIDE RECORDS SUMMARY | 2019-09-14 20:45 | XMS REPORT | Encounter Summary ---
Author Author [facility] Organization [facility] Address Unknown Phone Unavailable Care Team Providers Care Large Animal Veterinarian Name Role Phone Benjie Montano PCP Encounter Details Care Team Description Date Type Department Shade Pérez MD [address] [address] [phone] 11/25/2009 [facility] Social History [...]
--- OUTSIDE RECORDS SUMMARY | 2019-09-14 20:45 | XMS REPORT | Encounter Summary ---
Author Author [facility] Organization [facility] Address Unknown Phone Unavailable Care Team Providers Care Haul Driver Name Role Phone Charmaine Black PCP Encounter Details Care Team Description Date Type Department [facility] ProviderLuc MD 10/14/2009 [facility] Result Social History Date [...] Name Priority Date/Time Associated Diag nosis CV US CAROTID DUPLEX Routine 10/14/2009 HISTORICAL documented in this encounter Results * CV US Carotid Duplex historical (10/14/2009) Specimen Narrative Performed At Procedure Category: ECHO NEXTGEN Procedure: Carotid Duplex Procedure Summary: There is a >50% st enosis in the right ECA. Procedure Note Interface, Rad Conversion - 09/24/2014 2:57 PM CDT Procedure Category: ECHO Procedure: Carotid Duplex Procedure Summary: There is a >50% stenosis in the right ECA. Performing Organization Address City/State/Zipcode Ph one Number NEXTGEN documented in this encounter Visit Diagnoses Not on filedocumented in this encounter
--- OUTSIDE RECORDS SUMMARY | 2019-09-14 20:45 | XMS REPORT | Encounter Summary ---
Author Author [facility] Organization [facility] Address Unknown Phone Unavailable Care Team Providers Care Farm Hand Name Role Phone PCP Unavailable Encounter Details Care Team Description Date Type Department Shade Pérez MD [address] [id number] DM w/o complication type II [facility] [address] [place], [place] [id number] Social History Date Tobacco Use Types Packs/Day [...]
--- OUTSIDE RECORDS SUMMARY | 2019-09-14 20:45 | XMS REPORT | Encounter Summary ---
Author Author [facility] Organization [facility] Address Unknown Phone Unavailable Care Team Providers Care Manager Enterprise Name Role Phone Ananth Black PCP Encounter Details Care Team Description Date [place] [address] [place] [address] [phone] 10/16/2009 [facility] Visit Social History Date Tobacco Use Types Packs/Day Years Used Never Assessed Sex Assigned at Date Recorded Not on file Industry Job Start Date Occupation Not on file Not on file Not on file Travel End Travel History Travel Start No recent travel history available. documented as of this encounter Progress Notes * Tim Tate MD - 10/16/2009 1:10 PM CDT [place] Office [address] [place] [address] 10/30/2009 ANANTH BLACK MD [address] [facility] [place] [address] Re: CARL MOORECONY : 1935 Chart#: [id number] Dear Dr. BLACK: This is a followup note regarding CARL LISETH. He has completed his cardiac fili ting and I am writing to share the results with you. He had the following tests: Carotid duplex: There is a >50% stenosis in the right ECA. Based on the above, I am recommending the following: - continue medical treatment These test results along with my recommendations have been communicated to CARL CHILDERS. I hope this information is useful to you. If you should have any quest ions or concerns, please do not hesitate to contact me. Sincerely, Olman Holloway M.D. documented in this encounter Plan of Treatment Not on filedocumented as of this encounter Visit Diagnoses Not on filedocumented in this encounter
--- OUTSIDE RECORDS SUMMARY | 2019-09-14 20:45 | XMS REPORT | Encounter Summary ---
Author Author [facility] Organization [facility] Address Unknown Phone Unavailable Care Team Providers Care Supervisor Home Economics Name Role Phone Charmaine Black PCP Encounter Details Care Team Description Date Type Department Shade Pérez MD [address] [address] [phone] 11/25/2009 [facility]oint[facility] [...] Signs Reading Time Taken Comments Vital Sign 148/78 11/25/2009 11:43 AM CDT Blood Pressure 80 11/25/2009 11:43 AM CDT Pulse - - Temperature - - Respiratory Rate - - Oxygen Saturation - - Inhaled Oxygen Concentration 94.8 kg (209 lb) 11/25/2009 11:43 AM CDT Weight 172.7 cm (5' 8") 11/25/2009 11:43 AM CDT Height 31.78 11/25/2009 11:43 AM CDT Body Mass Index documented in this encounter Plan of Treatment Not on filedocumented as of this encounter Procedures Comments Procedure Name Priority Date/Time Associated Diag nosis GLUCOSE Routine 11/25/2009 11:43 AM CDT documented in this encounter Results * Glucose (11/25/2009 11:43 AM CDT) Glucose 142 (A) 0 OFFICE ENTERED Specimen Performing Organization Address City/State/Zipcode Ph one Number OFFICE ENTERED documented in this encounter Visit Diagnoses Not on filedocumented in this encounter
--- OUTSIDE RECORDS SUMMARY | 2019-09-14 20:45 | XMS REPORT | Encounter Summary ---
Author Author [facility] Organization [facility] Address Unknown Phone Unavailable Care Team Providers Care Rangeland Management Specialist Name Role Phone Charmaine Black PCP Encounter Details Care Team Description Date Type Department Stephania Whitaker RN DRAW FRAME TENDER- [address] [place] [address] 11/05/2009 [facility] [...] Reading Time Taken Comments Vital Sign 130/70 11/05/2009 11:00 AM CDT Blood Pressure 60 11/05/2009 11:00 AM CDT Pulse - - Temperature - - Respiratory Rate - - Oxygen Saturation - - Inhaled Oxygen Concentration 95.7 kg (211 lb) 11/05/2009 11:00 AM CDT obese Weight 170.2 cm (5' 7") 11/05/2009 11:00 AM CDT Height 33.05 11/05/2009 11:00 AM CDT Body Mass Index documented in this encounter Progress Notes * Stephania Whitaker RN FNP-MANFRED - 11/05/2009 10:30 AM CDT [facility] [address] [place] [address] November 05, 2009 CHARMAINE BLACK MD [address] [facility] [place] [address] RE: CARL CHILDERS : 1935 CHART #: [id number] Visit Provider: Gita Whitaker RN, BC, DRAW FRAME TENDER-C Visit Location: [facility] I had the pleasure of seeing CARL CHILDERS in [facility] for cardi ovascular risk reduction. He is 74 years of age and presents with the following chief complaints: coronary artery disease, hypertension, and dyslipidemia. Risk factors include: Male greater than 45 years old Hypertension Dyslipidemia Family history (CAD < 60 Yo) Known history of coronary artery disease Laboratory Results from today's visit are as follows: Date Collected: 11/29/2009 Fasting: Fasting Total Cholesterol: 124 HDL: 33 LDL: 60 Triglycerides: 157 Ratio: 3.76 Glucose: 110 HbA1c: 6.6 ALT: 38 AST: 22 CPK: 85 TSH: 0.38 Potassium: 3.9 Creatinine: 1.2 25-hydroxy vitamin D: 34 hsCRP: 4.17 Thyroxine (T4): 6.1 Final Medications: Niaspan 500 Mg take 3 tablets by ORAL route every day at bedtime after a low-fat snack Lipitor 40 Mg take 1 tablet (40MG) by ORAL route every day CardioDaily 1 take 1 tablet (20MG) by ORAL route every day Vitamin D 1000 Unit Aspirin 325 Mg Take one tablet by mouth daily Toprol XL 25 Mg Take one tablet by mouth in the AM. Prilosec OTC 20 Mg Take one tablet by mouth daily [place]-3 Fatty Acids Take two capsules by mouth twice per day Caltrate 600mg-400 Take one tablet by mouth two times per day Zoloft 50 Mg Take one tablet by mouth daily Allergies: No Known Allergies Family History: Brother Diagnosed with HTN Mother Cause of was CVA at age 82. Brother Cause of was CRF at age 67. Father Cause of was [place] at age 62. Brother Cause of was CABG at age 71. Sister Cause of was CA at age 86. Social History: Marital Status: Children: 3 Occupation: Retired Advance Directives: There are no advance directives. The patient has a living wi ll that was executed on 03/07/2007 Diet: Low fat/chol, Low salt Exercise: Regular - Cardiac rehab 3x a week Smoking: Nonsmoker Alcohol: Currently drinks 9 oz. of beer weekly Caffeine: Caffeine use: <1 cup daily of coffee ROS: 12-point review of systems is negative with the following exceptions: /CONTRACT PARALEGAL: Erectile dysfunction Musculoskeletal/Dermatology: Arthralgias Physical Exam: Vital Signs The patient is 5ft 7in tall, and weighs 211lbs. The BMI is 33.00. B lood pressure taken in the left [...] No aphasia is apparent by exam. Exercise: Elliptical for 30 minutes twice weekly. Cardiac rehabilitation three times per week Current Diet: Breakfast is soy milk, two scoops of whey, blueberries and bananas, low sodium V 8, toast with peanut butter and coffee. Lunch is a salad with 2 ounces of prote in, sometimes ham, water and coffee. Dinner is either steak or salmon, cottage cheese, fruit, vegetables and a beer. Snacks are often cheese and apples. Summary and Recommendations: 1. Known history of coronary artery disease, currently without anginal symptoms. He last saw our dub room engineer, Dr. Olman Holloway, in 09/2009. We did review slides in regards to plaque development, progression and stabilization. He is s tatus post coronary artery bypass grafting by approximately two years. He will continue with annual appointments with our dub room engineer for complete cardiovascu lar examinations and further recommendations. He will continue with strict risk factor modification. 2. Carotid disease. A carotid duplex in 2006 showed moderate to severe atherosc lerotic plaque bilaterally. He is currently without any dizziness, lightheadedn ess, syncope or near syncope. Dr. Holloway did recommend that he undergo a repea t carotid duplex next year. 3. Peripheral vascular disease with right renal artery stenting. 4. Hypertension. He was in pre-hypertension stage at today's visit. He will pl an on monitoring his blood pressure at home. He will call if it is consistently greater than 130/80. His blood pressure at cardiac rehab shows good control wi systolic blood pressures ranging from 110-120. 5. Dyslipidemia. LDL is optimally controlled. HDL and triglycerides are subopt imally controlled, but have significantly improved. Mr. Childers has done an exce llent job with making dietary and lifestyle modifications. He has cut back on h is simple carbohydrates and simple sugars significantly in the past six to eight weeks. I have, however, recommended he discontinue the simvastatin 80 mg and b egin Lipitor 40 mg. I recommended he also increase his Niaspan from 500 mg at b edtime at 1000 mg at bedtime for the next month and then increase to 1500 mg at bedtime thereafter. 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 On 09/05 010, his platelet count was 117. We will plan on checking his platelet count at his next visit in eight weeks. 6. His exercise regimen is excellent. Mr. Childers will continue with his [employer] exercise regimen. 7. Diabetes, being followed by Dr. Pérez. He has a follow-up appointment with trevon braxton on 11/25/2009. 8. A 25-hydroxy vitamin D level was 34. He has been taking 2000 IU of vitamin D daily. He recently just started the CardioTabs multivitamin which does contain an additional 2000 IU of vitamin D. Therefore, he will continue with this supp lementation. We will plan on reassessing his vitamin D level annually in the wi nter months. 9. Dietary modification. I have recommended Mr. Childers have lean protein, fruit s and vegetables at each of his meals. I have also provided him with a daily he alth site planner to assist with healthy daily eating habits and activities. I also provided him with a handout with suggestions of lean protein, fruits and vegetab les. 10. A BMI of 33 with a waist circumference of 39 inches [address] Mr. Childers in the obese category, thus reducing years off his lifespan. However, this is resolvi ng. Mr. Childers has lost 9 lbs since 11/2009. He will continue with his [employer] weight loss and plan on working on an additional 5 lb weight loss. Next Preventive Visit: In 2 Months Thank you for allowing us to participate in the care of this nice patient. Nohemi tao do not hesitate to call should you have questions or concerns. Sincerely, Gita Whitaker RN, BC, DRAW FRAME TENDER-C Supervising physician available for consultation is: Richard BERMUDEZ/ángel cc: CARL LISETH [address] [place], [place] [address] F: 11/12/2009 documented in this encounter Plan of Treatment Not on filedocumented as of this encounter Visit Diagnoses Not on filedocumented in this encounter
--- OUTSIDE RECORDS SUMMARY | 2019-09-14 20:45 | XMS REPORT | Encounter Summary ---
Author Author [facility] Organization [facility] Address Unknown Phone Unavailable Care Team Providers Care Bid Writer Name Role Phone PCP Unavailable Encounter Details Care Team Description Date Type Department Shade Pérez MD [address] [id number] DM w/o complication type II [facility] [address] [place], [place] [id number] Social History Date Tobacco Use Types Packs/Day [...]
--- OUTSIDE RECORDS SUMMARY | 2019-09-14 20:45 | XMS REPORT | Encounter Summary ---
Author Author [facility] Organization [facility] Address Unknown Phone Unavailable Care Team Providers Care Dialysis Technician Name Role Phone Benjie Montano PCP Encounter Details Care Team Description Date Type Department Shade Pérez MD [address] [address] [phone] 10/14/2009 [facility] Social History [...]
--- OUTSIDE RECORDS SUMMARY | 2019-09-14 20:45 | XMS REPORT | Encounter Summary ---
Author Author [facility] Organization [facility] Address Unknown Phone Unavailable Care Team Providers Care Public Service Director Name Role Phone Charmaine Black PCP Encounter Details Care Team Description Date Type Department Stephania Whitaker RN GRAIN CLEANER AND TRANSFER OPERATOR- [address] [place] [address] 11/05/2009 [facility] HISTORIC [...]
--- OUTSIDE RECORDS SUMMARY | 2019-09-14 20:46 | XMS REPORT | Encounter Summary ---
Author Author [facility] Organization [facility] Address Unknown Phone Unavailable Care Team Providers Care Railroad Crane Operator Name Role Phone Ananth Black PCP Encounter Details Care Team Description Date [place] [address] [facility] [address] [place] [address] [phone] 10/01/2008 [facility] Visit Social History Date Tobacco Use Types Packs/Day Years Used Never Assessed Sex Assigned at Date Recorded Not on file Industry Job Start Date Occupation Not on file Not on file Not on file Travel End Travel History Travel Start No recent travel history available. documented as of this encounter Progress Notes * Johan Barker MD - 10/01/2008 1:55 PM CDT [facility] Office [address] [place] [address] 10/08/2008 ANANTH BLACK MD [address] [facility] [place] [address] Re: CARL LISETH : 1935 Chart#: [id number] Dear Dr. BLACK: This is a followup note regarding CARL LISETH. He has completed his cardiac fili ting and I am writing to share the results with you. He had the following tests: Renal artery duplex: Normal velocities in both renal arteries with no evidence for a significant sten osis, including the stent in the right renal artery. A cyst, measuring 1.4 cm x 1.5 cm, is present in the left kidney. No significant change from 08/24/2007. Based on the above, I am recommending the following: - continue medical treatment Follow up is requested as planned. These test results along with my recommendations have been communicated to CARL CHILDERS. I hope this information is useful to you. If you should have any quest ions or concerns, please do not hesitate to contact me. Sincerely, Benjie Palomino M.D. documented in this encounter Plan of Treatment Not on filedocumented as of this encounter Visit Diagnoses Not on filedocumented in this encounter
--- OUTSIDE RECORDS SUMMARY | 2019-09-14 20:46 | XMS REPORT | Encounter Summary ---
Author Author [facility] Organization [facility] Address Unknown Phone Unavailable Care Team Providers Care Hematology Supervisor Name Role Phone Ananth Black PCP Encounter Details Care Team Description Date Type Department Benjie Palomino MD No Forwarding Address 09/19/2008 [facility] Visit Social History Date Tobacco Use Types Packs/Day Years Used Never Assessed Sex Assigned at Date Recorded Not on file Industry Job Start Date Occupation Not on file Not on file Not on file Travel End Travel History Travel Start No recent travel history available. documented as of this encounter Last Filed Vital Signs Reading Time Taken Comments Vital Sign 186/70 09/19/2008 1:26 PM CDT Blood Pressure 71 09/19/2008 1:26 PM CDT Pulse - - Temperature - - Respiratory Rate - - Oxygen Saturation - - Inhaled Oxygen Concentration 96.2 kg (212 lb) 09/19/2008 1:26 PM CDT obese Weight 170.2 cm (5' 7") 09/19/2008 1:26 PM CDT Height 33.2 09/19/2008 1:26 PM CDT Body Mass Index documented in this encounter Progress Notes * Benjie Palomino MD - 09/19/2008 1:00 PM CDT [place] Office [address] [place] [address] September 19, 2008 ANANTH BLACK MD [address] [facility] [place] [address] [place] [phone] RE: CARL CHILDERS : 1935 Chart #: [id number] Visit provider: Benjie Palomino M.D. Visit location: [place] [address] BLACK: I had the pleasure of seeing CARL CHILDERS in the office today. He is 73 years of age and presents with the following chief complaints: coronary artery disease, renal artery stenosis. HPI: I had an opportunity to see him today in follow-up of his coronary artery diseas e and renal artery stenosis. As you know, he underwent coronary artery bypass gr afting in 08/12. He has done well without anginal symptoms. He also has renal a rtery stenosis and has undergone WEB RETAILER and stent of his right renal artery. He chatman s had excellent blood pressure control since that time. He brings blood pressur es from home that show excellent control. He had become upset just prior to gett ing to the office and getting in the office and, therefore, his blood pressure w as elevated due to that. Problem List: 08/24/2007 CAD MPI Stress Test Mild to moderate ischemia in the distribution of the left anterior descending coronary artery and right coronary artery occurring at a low workload. Markedly positive ST segment change at low workload. Normal left ventricular systolic function. LVEF at rest is 71%. 1. Patient received rivas blingual nitroglycerin early in the recovery period because of chest pain sympto ms. 08/31/2007 CAD CABG Left internal mammary artery to left anterior descending, sa phenous vein to sequential to OM1 and OM2. Saphenous vein to posterior descending artery wit h a long vein patch anastomosis across the posterior descending artery lesion. DM 05/22/2004 Dyslipidemia 10/13/2007 Echo 1. Normal left ventricular systolic function, with an estimated ejection fraction of 60%. 2. Mildly thickened mitral valve with mild to moderate regurgitation. 3. Mild pulmonary hypertension with an estimated PA pressure = 41mmHg. 4. Evidence for a patent foramen ovale, based on color flow Doppler. 5. No previous study available for comparison 08/24/2007 MPI Rest EF: 71, Stress EF: 62 10/13/2007 Echo EF: 60 Hypertension Obesity 11/17/2006 PVD aorto-iliac duplex 1. [...] the right renal arter y. 12/30/2006 PVD Carotid Duplex 1. Pgyyzzcf-aj-omixvq atherosclerotic plaque in b oth common and internal carotid arteries with no evidence for a hemodynamically significant stenosis. 2. There is a >50% stenosis in the right ECA. 3. Both vertebral arteries are patent with antegrade flow. 12/30/2006 PVD CTA Runoff 1. High-grade stenosis in the proximal segment of the right renal artery (approximately 90% diameter reduction). 2. 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 3. Mild, scattered atherosclerotic disease in the iliac and femoral vessels. 4. Three-vessel runoff to the distal left and right lower extremities.5. Please see the radiology report for details of the no nvascular findings. 02/13/2007 PVD Renal angiography Bilateral renal stent -Right Renal Artery from 99% to 0% post 5.5 x 18mm Herculink Plus Stent post-dilated with a 6.5 mm balloo n secondary to marked post stenotic dilatation. 08/24/2007 PVD Renal Duplex 1. Normal velocities in both renal arteries with no evidence for a significant stenosis. 2. Both kidneys are equal in size. Past Medical History: Anxiety Cholelithiasis Obesity Osteoporosis Perforated diverticulum Osteoarthritis Osteopenia Erectile Dysfunction Diverticulosis Colon polyps Gallbladder dysfunction BPH Squamous cell CA 2001 Sleep Apnea on CPAP 2003 Past Surgical History: Surgery for Squamous Cell cancer Appendectomy 1998 Colon resection 1998 Skin Cancer Removal 2001 Final Medications: Simvastatin 80mg take 1 tablet (80MG) by ORAL route every day in the evening Aspirin 325mg Take one tablet by mouth daily Toprol XL 25mg Take one tablet by mouth in the AM. Prilosec OTC 20mg Take one tablet by mouth daily [place]-3 Fatty Acids Take two capsules by mouth twice per day Caltrate 600mg-400 Take one tablet by mouth two times per day Multivitamin Take one tablet by mouth daily Zoloft 50mg Take one tablet by mouth daily Allergies: No Known Allergies Family History: Brother Diagnosed with HTN Mother Cause of was CVA at age 82. Brother Cause of was CRF at age 67. Father Cause of was PA at age 62. Brother Cause of was CABG at age 71. Sister Cause of was CA at age 86. Social History: Marital Status: Children: 3 Occupation: Retired Advance Directives: There are no advance directives. The patient has a living wi ll that was executed on 03/07/2007 Diet: Low fat/chol, Low salt Exercise: Regular. Cardiac rehab 3x a week Smoking: Non-smoker Alcohol: Currently drinks 1 can of beer weekly Caffeine: Caffeine use: <1 cup daily of coffee ROS: 12-point review of systems is negative with the following exceptions: Constitutional: Fatigue Pulmonary: Daytime drowsiness Musculoskeletal/Dermatology: Arthralgias Physical Exam: Vital Signs The patient is 5ft 7in tall, and weighs 212lbs. The BMI is 33.20. B lood pressure taken in the left arm is 164/92 mmHg in the sitting position. The pulse is 71. The rhythm is regular. Const The patient is an obese male. HEENT The patient's sclerae are clear. The patient's neck veins are flat. Pulm Lungs are clear to auscultation. Cardiac [...] is apparent by exam. EKG: Rhythm: Sinus AV Conduction: Right bundle branch block Myocardial: inferior wall PA (old) Most Recent Lipids Available for Review: Date Collected: 09/10/2008 Fasting: Fasting Total Cholesterol: 161 HDL: 37 LDL: 79 Triglycerides: 223 Ratio: 4.35 Glucose: 123 Impression and Plan: 1. Coronary artery disease, status post coronary artery bypass grafting. He estrella l continue with aggressive risk factor modification. 2. Diabetes mellitus. 3. Dyslipidemia. I would recommend an LDL less than 70 with an HDL greater than 45 and triglycerides less than 150. 4. Hypertension, well controlled at home. I have asked him to undergo a renal d uplex to assess patency of the right renal artery stent that was placed previous ly. 5. Carotid artery atherosclerosis. I have asked him to undergo a carotid duplex in a year's time. Testing ordered: Description Interval Renal artery duplex First Available Follow up: Benjie Palomino M.D. 1 Year Thank you for allowing me to participate in CARL CHILDERS's care. If I can be of any further assistance, please do not hesitate to contact me. Sincerely, Benjie ALDANA/jaciel F: 09/23/2008 documented in this encounter Plan of Treatment Not on filedocumented as of this encounter Visit Diagnoses Not on filedocumented in this encounter
--- OUTSIDE RECORDS SUMMARY | 2019-09-14 20:46 | XMS REPORT | Encounter Summary ---
Author Author [facility] Organization [facility] Address Unknown Phone Unavailable Care Team Providers Care Steam Brush Operator Name Role Phone Fco Blackeen PCP Encounter Details Care Team Description Date Type Department [facility] ProviderLuc MD 10/13/2007 [facility] C Result Social History [...] Date/Time Associated Diag nosis ECHO HISTORICAL Routine 10/13/2007 documented in this encounter Results * Echo historical (10/13/2007) Specimen Narrative Performed At Procedure Category: ECHO NEXTGEN Procedure: Echocardiogram Procedure Summary: 1. Normal left ventr icular systolic function, with an estimated ejection fraction of 60%. 2. Mildly thickened mitral valve with m ild to moderate regurgitation 3. Mild pulmonary hypertension with an estimated PA pressure = 41mmHg. 4. Evidence for a patent foramen ovale, based on color flow Doppler 5. No previous study available for david ga Procedure Note Interface, Rad Conversion - 09/25/2014 8:01 AM CDT Procedure Category: ECHO Procedure: Echocardiogram Procedure Summary: 1. Normal left ventricular systolic function, with an estimated ejection fraction of 60%. 2. Mildly thickened mitral valve with mi ld to moderate regurgitation 3. Mild pulmonary hypertension with an e stimated PA pressure = 41mmHg. 4. Evidence for a patent foramen ovale, based on color flow Doppler 5. No previous study available for anatoly blanchard Performing Organization Address City/State/Zipcode Ph one Number NEXTGEN documented in this encounter Visit Diagnoses Not on filedocumented in this encounter
--- OUTSIDE RECORDS SUMMARY | 2019-09-14 20:46 | XMS REPORT | Encounter Summary ---
Author Author [facility] Organization [facility] Address Unknown Phone Unavailable Care Team Providers Care Notch Machine Operator Name Role Phone PCP Unavailable Encounter Details Care Team Description Date Type Department Olman Holloway MD [address] [facility] [address] [place] [address] [phone] Carotid art occ w[facility]o infarc [facility] [address] [place] [address] Social History Date Tobacco Use Types Packs/Day Years Used Never Assessed Sex Assigned at Date Recorded Not on file Industry Job Start Date Occupation Not on file Not on file Not on file Travel End Travel History Travel Start No recent travel history available. documented as of this encounter Medications at Time of Discharge Start Date End Date Medication Sig Dispensed Refills 05/17/2014 05/18/2015 sertraline (ZOLOFT) 50 MG TAKE 1 TABLET 30 0 tablet DAILY. 07/09/2004 10/09/2014 aspirin (ECOTRIN LOW Take one 0 0 STRENGTH) 81 MG EC tablet tablet by mouth daily 10/19/2007 10/09/2014 aspirin 325 MG EC tablet Take one 0 0 tablet by mouth daily 07/09/2004 10/09/2014 calcium carbonate-vitamin Take one 0 0 D3 600 mg(1,500mg) -400 tablet by unit per tablet mouth two times per day 09/22/2009 10/09/2014 cholecalciferol, vitamin 0 D3, (VITAMIN D3) 1,000 unit capsule 04/18/2012 10/09/2014 cholecalciferol, vitamin TAKE 2 60 0 D3, 1,000 unit capsule CAPSULES BY MOUTH DAILY 10/11/2007 10/09/2014 docusate sodium (DULCOLAX 0 0 STOOL SOFTENER, DSS,) 100 MG capsule 07/05/2005 10/09/2014 ezetimibe-simvastatin Take 1/2 0 0 [...] (TOPROL-XL) 50 MG 24 hr DAILY. tablet 07/09/2004 10/09/2014 multivitamin (THERAGRAN) Take one 0 0 per tablet tablet by mouth daily 09/22/2009 10/09/2014 niacin (NIASPAN take 1 tablet [...] 30 11 tablet tablet by mouth daily 08/25/2009 10/09/2014 simvastatin (ZOCOR) 80 MG take [...] as of this encounter Visit Diagnoses Diagnosis Occlusion and stenosis of carotid arter y without mention of cerebral infarction documented in this encounter
--- OUTSIDE RECORDS SUMMARY | 2019-09-14 20:46 | XMS REPORT | Encounter Summary ---
Author Author [facility] Organization [facility] Address Unknown Phone Unavailable Care Team Providers Care Board Stacker Name Role Phone Charmaine Black PCP Encounter Details Care Team Description Date Type Department Benjie Palomino MD No Forwarding Address 08/25/2009 [facility] HISTORIC [...]
--- OUTSIDE RECORDS SUMMARY | 2019-09-14 20:46 | XMS REPORT | Encounter Summary ---
Author Author [facility] Organization [facility] Address Unknown Phone Unavailable Care Team Providers Care General I Farmworker Name Role Phone PCP Unavailable Encounter Details Care Team Description Date Type Department Shade Pérez MD [address] [id number] [facility] [address] [place], [place] [id number] Social History Date Tobacco Use Types Packs/Day [...] Date/Time Associated Diag nosis MICROALBUMIN RANDOM Routine 10/14/2009 3:06 PM CDT RENAL PANEL Routine 10/14/2009 3:06 PM CDT documented in this encounter Results * Renal Panel (10/14/2009 3:06 PM CDT) Sodium 138 134 - 144 MEQ/L SUNQUEST Potassium 4.5 3.5 - 5.1 MEQ/L SUNQUEST Chloride 104 101 - 111 MEQ/L SUNQUEST Carbon Dioxide 29 23 - 32 MEQ/L SUNQUEST Creatinine 1.1 0.6 - 1.3 MG/DL SUNQUEST Blood Urea 23 8 - 26 MG/DL SUNQUEST Nitrogen Glucose 106 (H) 65 - 100 MG/DL SUNQUEST Anion Gap 5 3 - 15 SUNQUEST Phosphorus 3.3 2.5 - 4.5 MG/DL SUNQUEST Albumin 4.5 3.5 - 5.0 G/DL [facility]QUEST Calcium 9.9 8.8 - 10.5 MG/DL SUNQUEST eGFR Male AA 79 SUNQUEST Comment: Chronic Kidney Disease less than 60 mL/min/1.73 sq.m Kidney failure less than 15 mL/min/1.73 sq.m eGFR Male 65 SUNQUEST Non-AA Comment: Chronic Kidney Disease less than 60 mL/min/1.73 sq.m Kidney failure less than 15 mL/min/1.73 sq.m Specimen Blood Performing Organization Address City/[facility] Ph one Number [facility]RL [address] [place], [place] [address] SUNQUEST * Microalbumin Random (10/14/2009 3:06 PM CDT) Creatinine 76.1 MG/DL SUNQUEST Urine Random Microalbumin/Cr 3.15 0.00 - 16.00 UG/MG SUNQUEST eatinine Ratio Microalbumin 0.24 MG/DL SUNQUEST mg/dl Specimen Urine Performing Organization Address [facility] Ph one Number [facility] [address] [place], [place] [address] SUNQUEST documented in this encounter Visit Diagnoses Not on filedocumented in this encounter
--- OUTSIDE RECORDS SUMMARY | 2019-09-14 20:46 | XMS REPORT | Encounter Summary ---
Author Author [facility] Organization [facility] Address Unknown Phone Unavailable Care Team Providers Care Home School Coordinator Name Role Phone Charmaine Black PCP Encounter Details Care Team Description Date Type Department Tim Tate MD [address] [facility] [address] [place] [address] [phone] 08/26/2007 [facility] [...]
--- OUTSIDE RECORDS SUMMARY | 2019-09-14 20:46 | XMS REPORT | Encounter Summary ---
Author Author [facility] Organization [facility] Address Unknown Phone Unavailable Care Team Providers Care Log Handler Name Role Phone Ananth Black PCP Encounter Details Care Team Description Date Type Department 10/19/2007 [facility] - [facility] C Visit Social History Date Tobacco Use Types Packs/Day Years Used Never Assessed Sex Assigned at Date Recorded Not on file Industry Job Start Date Occupation Not on file Not on file Not on file Travel End Travel History Travel Start No recent travel history available. documented as of this encounter Progress Notes * [facility] ProviderLuc MD - 10/19/2007 8:56 AM CDT [place] [facility] [address] [place] [phone] 11/07/2007 ANANTH BLACK MD [address] [facility] [place] [place] [address] Re: CARL LISETH : 1935 Chart#: [id number] Dear Dr. BLACK: This is a followup note regarding CARL CHILDERS. He has completed his cardiac fili ting and I am writing to share the results with you. He had the following tests: 2D echo w/ Doppler: 1. Normal left ventricular systolic function, with an estima beto ejection fraction of 60%. 2. Mildly thickened mitral valve with mild to mod erate regurgitation. 3. Mild pulmonary hypertension with an estimated PA pressur e = 41mmHg. 4. Evidence for a patent foramen ovale, based on color flow Doppler 5. No previous study available for comparison Based on the above, I am recommending the following: - increase Aspirin to 325mg daily. Otherwise, I have not suggested any further changes at this time. These test results along with my recommendations [...]
--- OUTSIDE RECORDS SUMMARY | 2019-09-14 20:46 | XMS REPORT | Encounter Summary ---
Author Author [facility] Organization [facility] Address Unknown Phone Unavailable Care Team Providers Care Hand Clerical Verifier Name Role Phone Ananth Black PCP Encounter Details Care Team Description [place] [address] [place] [address] [phone] 08/30/2007 [facility] [...] Progress Notes * Tim Tate MD - 08/30/2007 11:09 AM CDT [place] [facility] [address] [place] [address] [phone] 09/04/2007 ANANTH BLACK MD [facility] [place] [address] Re: CARL LISETH : 1935 Chart#: [id number] Dear Dr. BLACK: As you know, I saw CARL LISETH in my office on August 24, 2007 for peripheral vasc ular disease and hypertension. He has completed his cardiac testing and I am wri ting to share the results with you. He had the following tests: Renal artery duplex: 1. Normal velocities in both renal arteries with no evidenc e for a significant stenosis. 2. Both kidneys are equal in size. These test results along with my recommendations have been communicated to CARL CHILDERS. I hope this information is useful to you. If you should have any quest ions or concerns, please do not hesitate to contact me. Sincerely, Tim Tate M.D. documented in this encounter Plan of Treatment Not on filedocumented as of this encounter Visit Diagnoses Not on filedocumented in this encounter
--- OUTSIDE RECORDS SUMMARY | 2019-09-14 20:46 | XMS REPORT | Encounter Summary ---
Author Author [facility] Organization [facility] Address Unknown Phone Unavailable Care Team Providers Care Primary Operator Name Role Phone Charmaine Black PCP Encounter Details Care Team Description Date Type Department Gildardo Carrero MD [address] [facility] [address] [place] [address] [phone] 01/17/2009 [facility] [...]
--- OUTSIDE RECORDS SUMMARY | 2019-09-14 20:46 | XMS REPORT | Encounter Summary ---
Author Author [facility] Organization [facility] Address Unknown Phone Unavailable Care Team Providers Care Piano Case Maker Name Role Phone Charmaine Black PCP Encounter Details Care Team Description Date Type Department [facility] ProviderLuc MD 10/13/2007 [facility] C Social History Date Tobacco [...] Associated Diag nosis ECHO EJECTION FRACTION Routine 10/13/2007 HISTORICAL 8:34 AM CDT documented in this encounter Results * Echo Ejection Fraction historical (10/13/2007 8:34 AM CDT) Ejection 60Comment: Echo PROSOLV Fraction Specimen Performing Organization Address City/State[facility] Ph one Number PROSOLV documented in this encounter Visit Diagnoses Not on filedocumented in this encounter
--- OUTSIDE RECORDS SUMMARY | 2019-09-14 20:46 | XMS REPORT | Encounter Summary ---
Author Author [facility] Organization [facility] Address Unknown Phone Unavailable Care Team Providers Care Director Epidemiology Name Role Phone Ananth Black PCP Encounter Details Care Team Description Date Type Department Olman Holloway MD [address] [address] [phone] 09/22/2009 [facility]IC [facility] C [...] Signs Reading Time Taken Comments Vital Sign 132/74 09/22/2009 11:50 AM CDT Blood Pressure 68 09/22/2009 11:50 AM CDT Pulse - - Temperature - - Respiratory Rate - - Oxygen Saturation - - Inhaled Oxygen Concentration 99.8 kg (220 lb) 09/22/2009 11:50 AM CDT obese Weight 170.2 cm (5' 7") 09/22/2009 11:50 AM CDT Height 34.46 09/22/2009 11:50 AM CDT Body Mass Index documented in this encounter Progress Notes * Olman Holloway MD - 09/22/2009 12:00 PM CDT [place] [facility] [address] [place] [address] September 22, 2009 ANANTH BLACK MD [address] [facility] [place] [address] [place] [address] RE: CARL CHILDERS : 1935 Chart #: [id number] Visit provider: Olman Holloway M.D. Visit location: [place] [address] BLACK: I had the pleasure of seeing CARL CHILDERS in the office today. He is 74 years of age and presents with the following chief complaints: follow up on chronic dise ase. HPI: He denies chest pains or shortness of breath. He has not had palpitations, sync ope, presyncope, or episodes to suggest TIA or stroke. He goes to cardiac rehab three times per week. He says that his blood pressure has been under reasonable control. His lipids h ave not been very good, with low HDL and markedly elevated triglycerides. In ad dition, his glucose has been elevated and his recent A1C level was 6.5%. He has sleep apnea and does use his CPAP. He has chronically, marginally low platelet counts. Problem List: 08/24/2007 CAD MPI Stress Test Mild to moderate ischemia in the distribution of the left anterior descending coronary artery and right coronary artery occurring at a low workload. Markedly positive ST segment change at low workload. Normal left ventricular systolic function. LVEF at rest is 71%.<p>1. Patient received sublingual nitroglycerin early in the recovery period because of chest pain symptoms. <p>2. Test results were verbally communicated on date [...] Mildly thickened mitral valve with mild to modera te regurgitation. 3. Mild pulmonary hypertension with an estimated PA pressure = 41mmHg. 4. Evidence for a patent foramen ovale, based on color flow Doppler. 5. No previous study available for comparison 08/24/2007 EF MPI Rest EF: 71, Stress EF: 62 10/13/2007 EF Echo EF: 60 Hypertension Obesity 11/17/2006 PVD [...] the radiology report for details of the n onvascular findings. 12/30/2006 PVD Carotid Duplex 1. [id number] atherosclerotic plaque in b oth common and internal carotid arteries with no evidence for a hemodynamically significant stenosis. 2. There is a >50% stenosis in the right ECA. 3. Both vertebral arteries are patent with antegrade flow. 02/13/2007 PVD Renal angiography Bilateral renal stent [...] kidney. No significa nt change from 08/24/2007. Past Medical History: Anxiety Cholelithiasis Obesity Osteoporosis Perforated diverticulum Osteoarthritis Osteopenia Erectile Dysfunction Diverticulosis Colon polyps Gallbladder dysfunction BPH Squamous cell CA 2002 Sleep Apnea on CPAP 2003 Past Surgical History: Surgery for Squamous Cell cancer Appendectomy 1999 Colon resection 1998 Skin Cancer Removal 2001 Final Medications: Vitamin D 1000 Unit Niaspan 500 Mg take 1 tablet (500MG) by ORAL route every day at bedtime after a low-fat snack Simvastatin 80 Mg take 1 tablet (80MG) by ORAL route every day in the evening Aspirin 325 Mg Take one tablet by mouth daily Toprol XL 25 Mg Take one tablet by mouth in the AM. Prilosec OTC 20 Mg Take one tablet by mouth daily [place]-3 Fatty Acids Take two capsules by mouth twice per day Caltrate 600mg-400 Take one tablet by mouth two times per day Multivitamin Take one tablet by mouth daily Zoloft 50 Mg Take one tablet by mouth daily Allergies: No Known Allergies Family History: Brother Diagnosed with HTN. Mother Cause of was CVA at age 82. Brother Cause of was CRF at age 67. Father Cause of was MA at age 62. Brother Cause of was [...] systems is negative with the following exceptions: Musculoskeletal/Dermatology: Arthralgias Physical Exam: Vital Signs The patient is 5ft 7in tall, and weighs 220lbs. The BMI is 34.50. B lood pressure taken in the right arm is 132/74 mmHg in the sitting position. The pulse is 68 . The rhythm is regular. Const The patient [...] to touch. There is no edema noted. EKG: Result: No change since last visit. Rhythm: Sinus Rate: 67 AV Conduction: Right bundle branch block Most Recent Lipids Available for Review: Date Collected: 09/15/2009 Fasting: Fasting Total Cholesterol: 154 HDL: 32 LDL: 63 Triglycerides: 295 Ratio: 4.81 Impression and Plan: 1. Coronary artery disease, approximately two years post coronary artery bypass grafting, asymptomatic: No testing is indicated at this point in time. 2. Carotid disease: His last duplex in 2006 showed moderate-severe atherosclero tic plaque bilaterally. He is currently asymptomatic. He has bilateral bruits. I am going to have him undergo repeat carotid duplex this year. 3. Prior stenting of the right renal artery: His blood pressure is no longer a problem. He has had renal duplex subsequent to the procedure showing wide paten cy of the stent. No reason to repeat that study at this point in time. 4. Hypertension: His blood pressure seems to be under good control. 5. Dyslipidemia: His high triglycerides and low HDL may be a reflection of his diabetes. I started him today on Niaspan 500 mg daily and we will [facility]. He knows that he needs to lose weight and increas e his exercise. 6. Diabetes: I have referred him on for a diabetes consultation. He has diffus e vascular disease, including coronary disease, carotid disease, renal artery di sease, and peripheral vascular disease, and his diabetes will need close attenti on. Testing ordered: Description Interval Carotid duplex First Available Follow up: Olman Holloway M.D. 1 Year Referrals: ESTUARDO GÓMEZ MD First Available Diabetes mgmt Clinics: Enrolled in the Lipid Clinic Thank you for allowing me to participate in CARL CHILDERS's care. If I can be of any further assistance, please do not hesitate to contact me. Sincerely, Olman Holloway M.D. TMB:andrei cc: ESTUARDO GÓMEZ MD F: 09/27/2009 documented in this encounter Plan of Treatment Not on filedocumented as of this encounter Visit Diagnoses Not on filedocumented in this encounter
--- OUTSIDE RECORDS SUMMARY | 2019-09-14 20:46 | XMS REPORT | Encounter Summary ---
Author Author [facility] Organization [facility] Address Unknown Phone Unavailable Care Team Providers Care Entry Level Automotive Technician Name Role Phone PCP Unavailable Encounter Details Care Team Description Date Type Department Phillip Davison MD [address] [place] [address] Coronary Atherosclerosis of [place] Coron juan david Artery 08/31/2007 [facility] - Encounter 09/04/2007 Social History Date Tobacco Use Types Packs/Day Years Used Never Assessed Sex Assigned at Date Recorded Not on file Industry Job Start Date Occupation Not on file Not on file Not on file Travel End Travel History Travel Start No recent travel history available. documented as of this encounter Discharge Summaries * Phillip Davison MD - 05/05/2013 10:34 AM RECLAMATION WORKER REPORT Name: CARL CHILDERS MRN/Unit #: [id number] Attending Physician: PHILLIP DAVISON Date of : 1935 DATE OF ADMISSION: 08/31/2007 DATE OF DISCHARGE: 09/04/[address] Black: I had the pleasure of discharging your patient, Mr. Carl Childers, from the [facility] following his coronary artery bypass grafting times [address] Davison on 08/31/2007. As you know, this is a 72-year-old male who had a recent followup visit with his security officers and guards. Mr. Childers recently was experiencing dizziness and lightheadedness while working in the garden. He does have a history of vascular disease including known carotid artery disease and renal artery disease. He underwent a stress test which was abnormal and then had a cardiac catheterization which revealed multivessel coronary artery disease. He subsequently had a coronary artery bypass grafting x4 by Dr. Davison on 08/31/2007. Mr. Childers's postoperative course has been complicated by hypotension. He remained on a Levophed drip in the intensive care unit for several days. He was successfully weaned off the Levophed. His blood pressure is now stable and he is, in fact, tolerating a low dose beta aubrey. Otherwise, he is up walking in the halls without assistance. His incision is clean, dry and intact. His vital signs are stable. He is on room air at 96%. DISCHARGE MEDICATIONS: 1. Ecotrin 81 mg p.o. daily. 2. Toprol-XL 25 mg p.o. daily. 3. Zoloft 50 mg p.o. daily. 4. Zocor 40 mg p.o. daily. 5. Prilosec 40 mg p.o. daily. 6. Fish oil 1000 mg p.o. daily. 7. Lortab 5-500 one to two p.o. every 4 to 6 hours as needed for pain. DISCHARGE DIAGNOSES: 1. Coronary artery disease. 2. Peripheral vascular disease with a history of carotid artery stenosis and renal artery stenosis. 3. Anxiety. 4. Cholelithiasis. 5. Obesity. 6. Osteoporosis. 7. History of perforated diverticulum. 8. Osteoarthritis. 9. Osteopenia. 10. Obesity. 11. Erectile dysfunction. 12. Diverticulosis. 13. Colon polyps. 14. Gallbladder dysfunction. 15. Squamous cell carcinoma. 16. Sleep apnea. 17. Benign prostatic hypertrophy. 18. Acute blood loss anemia. DISCHARGE LABORATORIES: White blood cell count 3.8, hemoglobin 8.1, hematocrit 24, platelet count 104. Sodium 136, potassium 4.2, creatinine 1.2, BUN 25 and glucose is 127. DISCHARGE PLAN: Mr. Childers is being discharged to home to home care today. He will have a followup visit with Dr. Davison in 6 weeks and our office will call to arrange this appointment with him. We have asked that he follow up with his primary care doctor in 1 to 2 weeks for a recheck of his blood pressure as well as general followup. At that time, his blood pressure medication can be titrated up as his blood pressure tolerates. We have asked that he see cardiology in approximately 4 to 6 weeks. He has been discharged on sternal precautions as well as lifting restrictions. We have encouraged Mr. Childers to contact our office at [phone] with any questions or concerns. Thank you for the opportunity to participate in the care of this nice gentleman. Should you require anything further, please do not hesitate to contact our office at [phone]. Phillip Davison MD Dictated By: Naomie Cleaning RN, SECURITY PROJECT MANAGER-C cc: MD Tim Das MD AMATION WORKER documented in this encounter Medications at Time of Discharge Start Date End Date Medication Sig Dispensed Refills 07/09/2004 10/09/2014 aspirin (ECOTRIN LOW Take one 0 0 STRENGTH) 81 MG EC tablet tablet by mouth daily 07/09/2004 10/09/2014 calcium carbonate-vitamin Take one 0 0 D3 600 mg(1,500mg) -400 tablet by unit per tablet mouth two times per day 07/05/2005 10/09/2014 ezetimibe-simvastatin Take 1/2 0 0 (VYTORIN) 10-40 mg per tablet by tablet mouth daily 07/09/2004 10/09/2014 ezetimibe-simvastatin Take one 0 0 (VYTORIN) 10-40 mg per tablet by tablet mouth before bedtime 07/09/2004 10/09/2014 famotidine (PEPCID) 20 MG Take one 0 0 tablet tablet by mouth daily 01/10/2019 hyaluronate (SYNVISC) 16 prn 1 0 mg/2 mL injection 02/07/2007 10/09/2014 hydrochlorothiazide Take one 0 0 (HYDRODIURIL) 25 MG tablet by tablet mouth daily 11/08/2006 10/09/2014 lisinopril Take one 30 11 (PRINIVIL,ZESTRIL) 20 MG tablet by tablet mouth daily 12/07/2006 10/09/2014 lisinopril (ZESTRIL) 40 Take one 30 10 MG tablet tablet by mouth daily 07/10/2004 10/09/2014 metoprolol succinate Take one 30 11 (TOPROL XL) 100 MG 24 hr capsule by tablet mouth daily 11/08/2006 10/09/2014 metoprolol succinate Take one 0 0 (TOPROL XL) 50 MG 24 hr tablet by tablet mouth daily 07/09/2004 10/09/2014 metoprolol succinate Take one 0 0 (TOPROL XL) 50 MG 24 hr tablet by tablet mouth daily 07/09/2004 10/09/2014 multivitamin (THERAGRAN) Take one 0 0 per tablet tablet by mouth daily 02/07/2007 10/09/2014 olmesartan-hydrochlorothi 0 0 azide (BENICAR [...] 30 11 tablet tablet by mouth daily 07/09/2004 10/09/2014 vardenafil (LEVITRA) 20 PRN 0 0 MG tablet documented as of this encounter Miscellaneous Notes * Operative Note - Phillip Davison MD - 05/05/2013 10:35 AM RECLAMATION WORKER REPORT Name: CARL CHILDERS MRN/Unit #: [id number] Attending Physician: PHILLIP DAVISON Date of : 1935 DATE OF OPERATION: 08/31/2007. PREOPERATIVE DIAGNOSIS: Severe coronary artery disease, symptomatic. POSTOPERATIVE DIAGNOSIS: Severe coronary artery disease, symptomatic. OPERATION PERFORMED: 1) Quadruple-vessel coronary artery bypass with left internal mammary artery and endoscopic saphenous vein. 2) Left internal mammary artery to left anterior descending, saphenous vein to sequential to OM1 and OM2. 3) Saphenous vein to posterior descending artery with a long vein patch anastomosis across the posterior descending artery lesion. 4) Endoscopic vein harvesting. SURGEON: Phillip Davison MD ASSISTANTS: Padma Aguilar PA-C and Jazmyne Marquez PA-C ANESTHESIA: General. COMPLICATIONS: None. DISPOSITION: To the CV-ICU stable. DESCRIPTION OF PROCEDURE: After satisfactory induction of general anesthesia, the patient was prepped and draped in a sterile fashion. A midline sternotomy was performed. The TORRES was harvested and simultaneously the left greater saphenous vein was harvested endoscopically. The pericardium was suspended. The patient was heparinized and cannulated via the ascending aorta and right atrial appendage. After a satisfactory ACT, normothermic cardiopulmonary bypass was instituted, and the ascending aorta was clamped. The heart was arrested with high potassium cardioplegia. Low potassium cardioplegia was delivered every 20 minutes until the clamp was removed. The distal OM2 was grafted with a reversed segment of saphenous vein in an end-to-side fashion with a running 7-0 Prolene suture. It was a 2-mm vessel. Next, [id number] sequential anastomosis was created to the same vein graft anastomosing the first obtuse marginal artery, which was a 1.5-mm vessel. The proximal was constructed on the ascending aorta with a running 6 Prolene suture. Next, the PDA was exposed. There was a long lesion at an early bifurcation point. The arteriotomy was made to span the entire length of the lesion and the distal PDA branches were each 1.5 mm in size. A distal anastomosis was then created between the reversed saphenous vein graft and the coronary arteriotomy using a running 7-0 Prolene suture. The proximal was constructed on the ascending aorta. The TORRES was then grafted to the LAD in an end-to-side fashion as well. The crossclamp was removed. Cardiac activity resumed. The grafts were inspected and found to be hemostatic and patent by Doppler examination. The patient was then allowed to ventilate and eject and slowly was weaned from cardiopulmonary bypass without difficulty. He was decannulated. Protamine was administered. Pacing wires and drains were inserted, and when hemostasis was satisfactory, the chest was closed routinely. The drains were placed to suction. A sterile bandage was applied, and the patient was transported to the CV-ICU in stable condition Phillip Davison MD Dictated By: cc: AMATION WORKER documented in this encounter Plan of Treatment Not on filedocumented as of this encounter Procedures Comments Procedure Name Priority Date/Time Associated Diag nosis GLUCOSE POINT OF CARE Routine 09/04/2007 11:34 AM CDT GLUCOSE POINT OF CARE Routine 09/04/2007 7:07 AM CDT COMPLETE BLOOD COUNT Routine 09/04/2007 4:54 AM CDT BASIC METABOLIC PANEL Routine 09/04/2007 4:54 AM CDT GLUCOSE POINT OF CARE Routine 09/03/2007 9:09 PM CDT GLUCOSE POINT OF CARE Routine 09/03/2007 5:04 PM CDT XR CHEST SINGLE VIEW Routine 09/03/2007 FRONTAL 12:53 PM CDT HEMOGLOBIN Routine 09/03/2007 12:33 PM CDT GLUCOSE POINT OF CARE Routine 09/03/2007 11:05 AM CDT COMPLETE BLOOD COUNT Routine 09/03/2007 3:54 AM CDT BASIC METABOLIC PANEL Routine 09/03/2007 3:54 AM CDT GLUCOSE POINT OF CARE Routine 09/02/2007 9:38 PM CDT XR CHEST SINGLE VIEW Routine 09/02/2007 FRONTAL 8:21 PM CDT GLUCOSE POINT OF CARE Routine 09/02/2007 4:03 PM CDT HEMOGLOBIN AND HEMATOCRIT Routine 09/02/2007 1:20 PM CDT GLUCOSE POINT OF CARE Routine 09/02/2007 10:57 AM CDT HEMOGLOBIN AND HEMATOCRIT Routine 09/02/2007 9:41 AM CDT GLUCOSE POINT OF CARE Routine 09/02/2007 7:02 AM CDT COMPLETE BLOOD COUNT Routine 09/02/2007 4:45 AM CDT BASIC METABOLIC PANEL Routine 09/02/2007 4:45 AM CDT GLUCOSE POINT OF CARE Routine 09/01/2007 9:00 PM CDT GLUCOSE POINT OF CARE Routine 09/01/2007 4:17 PM CDT XR CHEST SINGLE VIEW Routine 09/01/2007 FRONTAL 3:05 PM CDT POTASSIUM Routine 09/01/2007 12:13 PM CDT GLUCOSE POINT OF CARE Routine 09/01/2007 12:10 PM CDT GLUCOSE POINT OF CARE Routine 09/01/2007 11:15 AM CDT GLUCOSE POINT OF CARE Routine 09/01/2007 10:06 AM CDT GLUCOSE POINT OF CARE Routine 09/01/2007 8:09 AM CDT ARTERIAL BLOOD GAS POC Routine 09/01/2007 6:06 AM CDT GLUCOSE POINT OF CARE Routine 09/01/2007 6:06 AM CDT GLUCOSE POINT OF CARE Routine 09/01/2007 5:01 AM CDT COMPLETE BLOOD COUNT Routine 09/01/2007 3:28 AM CDT CK-MB Routine 09/01/2007 3:28 AM CDT BASIC METABOLIC PANEL Routine 09/01/2007 3:28 AM CDT GLUCOSE POINT OF CARE Routine 09/01/2007 3:27 AM CDT ARTERIAL BLOOD GAS POC Routine 09/01/2007 3:04 AM CDT GLUCOSE POINT OF CARE Routine 09/01/2007 2:08 AM CDT GLUCOSE POINT OF CARE Routine 09/01/2007 1:16 AM CDT ARTERIAL BLOOD GAS POC Routine 09/01/2007 12:37 AM CDT POTASSIUM Routine 09/01/2007 12:20 AM CDT GLUCOSE POINT OF CARE Routine 09/01/2007 12:19 AM CDT GLUCOSE POINT OF CARE Routine 08/31/2007 11:08 PM CDT GLUCOSE POINT OF CARE Routine 08/31/2007 9:57 PM CDT GLUCOSE POINT OF CARE Routine 08/31/2007 9:04 PM CDT ARTERIAL BLOOD GAS POC Routine 08/31/2007 8:40 PM CDT GLUCOSE POINT OF CARE Routine 08/31/2007 8:05 PM CDT GLUCOSE POINT OF CARE Routine 08/31/2007 7:02 PM CDT POTASSIUM Routine 08/31/2007 6:04 PM CDT GLUCOSE POINT OF CARE Routine 08/31/2007 6:03 PM CDT GLUCOSE POINT OF CARE Routine 08/31/2007 5:01 PM CDT GLUCOSE POINT OF CARE Routine 08/31/2007 4:08 PM CDT GLUCOSE POINT OF CARE Routine 08/31/2007 3:18 PM CDT LYTES//HGB/CA POC Routine 08/31/2007 1:31 PM CDT ARTERIAL BLOOD GAS POC Routine 08/31/2007 1:31 PM CDT COOXIMETRY ARTERIAL Routine 08/31/2007 1:29 PM CDT GLUCOSE POINT OF CARE Routine 08/31/2007 1:28 PM CDT XR CHEST SINGLE VIEW Routine 08/31/2007 FRONTAL 1:15 PM CDT GLUCOSE POINT OF CARE Routine 08/31/2007 12:25 PM CDT LYTES//HGB/CA POC Routine 08/31/2007 11:10 AM CDT ARTERIAL BLOOD GAS POC Routine 08/31/2007 11:10 AM CDT GLUCOSE POINT OF CARE Routine 08/31/2007 11:10 AM CDT LYTES//HGB/CA POC Routine 08/31/2007 10:46 AM CDT ARTERIAL BLOOD GAS POC Routine 08/31/2007 10:46 AM CDT ANTIBODY SCREEN Routine 08/31/2007 8:40 AM CDT ABORH TYPE Routine 08/31/2007 8:40 AM CDT GLUCOSE POINT OF CARE Routine 08/31/2007 8:09 AM CDT URINALYSIS (INCLUDES Routine 08/31/2007 MICROSCOPIC REVIEW, IF 6:45 AM CDT INDICATED) documented in this encounter Results * Glucose Point of Care (09/04/2007 11:34 AM CDT) Only the most recent of 34 results within the time period is included. Glucose 162 (H) 65 - 100 MG/DL [facility] Specimen Performing Organization Address City/State/Zipcode Ph one Number [id number] [place], [place] [address] [place] * Complete Blood Count (09/04/2007 4:54 AM CDT) Only the most recent of 4 results within the time period is included. WBC 3.8 (L) 4.0 - 11.0 TH/UL [facility] RBC 2.73 (L) 4.31 - 5.84 MIL/UL [facility] Hemoglobin 8.1 (L) 13.0 - 17.0 G/DL [facility] Hematocrit 24 (L) 40 - 50 % [place] MCV 88 80 - 99 FL [facility] MCH 30 27 - 34 PG [place] MCHC 34 32 - 36 % [facility] RDW 14.9 (H) <14.5 % [facility] Platelet Count 104 (L) 140 - 400 TH/UL [place] MPV 9.9 9.4 - 12.3 FL [place] Specimen Performing Organization Address [facility] one Number [id number] [place] [phone] [place] * Basic Metabolic Panel (09/04/2007 4:54 AM CDT) Only the most recent of 4 results within the time period is included. Sodium 136 134 - 144 MEQ/L [facility] Potassium 4.2 3.5 - 5.1 MEQ/L [facility] Chloride 104 101 - 111 MEQ/L [facility] Carbon Dioxide 26 23 - 32 MEQ/L [facility] Anion Gap 6 3 - 15 [place] Creatinine 1.2 0.9 - 1.3 MG/DL [facility] Blood Urea 25 8 - 26 MG/DL [facility] Nitrogen Glucose 127 (H) 65 - 100 MG/DL [facility] Calcium 8.2 (L) 8.8 - 10.5 MG/DL [facility] Specimen Performing Organization Address [facility] one Number [id number] [place] [phone] [place] * XR Chest single view frontal (09/03/2007 12:53 PM CDT) Only the most recent of 4 results within the time period is included. Specimen Narrative Performed At [facility] Patient: CARL CHILDERS [facility] Rec#: [id number] Sex: M : 1935 Armando#: [id number] Location: [facility] Check-in#: [id number] Procedure Requested: [id number] DX CHEST SIN GLE VIEW Reason For Exam: CHEST TUBE REMOV AL Exam Ordered: 09/03/2007 125 5 Exam Date/Time: 09/03/2007 1303 Check-in Date/Time: 09/03/2007 1308 AttendinPHILLIP LEA " " RequestinPHILLIP HSIEH "" ReferrinPHILLIP HSIEH " " Primary Care: These images and this report have been reviewed and edited by the Staff Radiologist. Reason for Examination: CHEST TUBE ROSANNA KASSY DX CHEST SINGLE VIEW, Sep 03, 2007 1:03 :00 PM INTERPRETATION: Comparison 01 September. Increased pulmonary aeration with impro ving of basilar atelectasis and/or infiltrates. No change in right central line. No free air. Median sternotomy wires. Signed (Authenticated, Released) Date-T meghan: 09/03/2007 1325 Laborer Tree Tapping- RYANN KANG M.D., Radiologist Dictated By- RYANN KANG M.D., Radio logist Staff Physician- RYANN KANG M.D., R adiologist Authenticated By- RYANN KANG M.D., Radiologist Procedure Note Interface, Rad Conversion - 05/06/2013 3:10 PM RECLAMATION WORKER REPORT Patient: CARL CHILDERS [facility] Rec#: [id number] Sex: M : 1935 [facility]#: [id number] Location: [place] [address] Check-in#: [id number] Procedure Requested: [id number] DX CHEST SINGLE VIEW Reason For Exam: CHEST TUBE REMOVAL Exam Ordered: 09/03/2007 1255 Exam Date/Time: 09/03/2007 1303 Check-in Date/Time: 09/03/2007 1308 AttendinPHILLIP BANEGAS "" RequestinPHILLIP LEA "" ReferrinPHILLIP BANEGAS "" Primary Care: These images and this report have been reviewed and edited by the Staff Radiologist. Reason for Examination: CHEST TUBE REMOVAL DX CHEST SINGLE VIEW, Sep 03, 2007 1:03:00 PM INTERPRETATION: Comparison 01 September. Increased pulmonary aeration with improving of basilar atelectasis and/or infiltrates. No change in right central line. No free air. Median sternotomy wires. Signed (Authenticated, Released) Date-Time: 09/03/2007 1325 Laborer Tree Tapping- RYANN KANG M.D., Radiologist Dictated By- RYANN KANG M.D., Radiologist Staff Physician- RYANN KANG M.D., Radiologist Authenticated By- RYANN KANG M.D., Radiologist Performing Organization Address [facility] Ph one Number SEAN * Hemoglobin (09/03/2007 12:33 PM CDT) Hemoglobin 8.4 (L) 13.0 - 17.0 G/DL [facility] Specimen Performing Organization Address [facility] one Number [id number] [place] [phone] [place] * Hemoglobin and Hematocrit (09/02/2007 1:20 PM CDT) Only the most recent of 2 results within the time period is included. Hemoglobin 8.9 (L) 13.0 - 17.0 G/DL [facility] Hematocrit 27 (L) 40 - 50 % [facility] Specimen Performing Organization Address [facility] one Number [id number] [place] [phone] [place] * Potassium (09/01/2007 12:13 PM CDT) Only the most recent of 3 results within the time period is included. Potassium 4.4 3.5 - 5.1 MEQ/L [facility] Specimen Performing Organization Address [facility] one Number [id number] [place] [phone] [place] * Arterial Blood Gas POC (09/01/2007 6:06 AM CDT) Only the most recent of 7 results within the time period is included. pH Arterial 7.31 (L) 7.38 - 7.44 UNITS [facility] pCO2 Arterial 44 35 - 45 MMHG [facility] PO2 Arterial 154 >71 MMHG [facility] Base Excess -4.3 (L) -3.0 - 3.0 MEQ/L [facility] Bicarbonate 22.0 21.0 - 28.0 MEQ/L [facility] Sample Site ARTERIAL [facility] Device CPAP [facility] Mode Oxygen [facility] Fraction of .50 % [facility] Inspired Oxygen Specimen Performing Organization Address [facility] Ph one Number [id number] [place] [phone] [place] * CK-MB (09/01/2007 3:28 AM CDT) CK MB 43.3 (H) 0.0 - 6.3 NG/ML [facility] Specimen Performing Organization [facility] one Number [id number] [place] [phone] [place] * Lytes//HGB/CA POC (08/31/2007 1:31 PM CDT) Only the most recent of 3 results within the time period is included. Sodium 136 134 - 144 MEQ/L [facility] Potassium 4.3 3.5 - 5.1 MEQ/L [facility] Ionized Calcium 5.2 4.5 - 5.3 MG/DL [facility] Hematocrit 26 (L) 40 - 50 % [facility] HEMOGLOBIN CALC 8.8 G/DL [facility] Specimen Performing Organization [facility] one Number [id number] [place] [phone] [place] * Cooximetry Arterial (08/31/2007 1:29 PM CDT) Hemoglobin 10.0 (L) 13.0 - 17.0 G/DL [facility] Whole Blood Oxyhemoglobin 97.2 95.0 - 100.0 %THB [facility] O2 Content 13.5 (L) >17.0 ML/DL [facility] Arterial Specimen Performing Organization Address [facility] one Number [id number] [place] [phone] [place] * ABORH Type (08/31/2007 8:40 AM CDT) ABORH Type A POS [facility] Specimen Performing Organization Address [facility] Ph one Number [id number] [place], [place] [address] [place] * Antibody Screen (08/31/2007 8:40 AM CDT) Antibody Screen NEGATIVE [facility] Specimen Performing Organization Address [facility] Ph one Number [id number] [place], [place] [address] [place] * Urinalysis (08/31/2007 6:45 AM CDT) Appearance, YELLOW [facility] Urine Specific 1.025 <1.030 [facility] [place], UA PH Urine 6.0 5.0 - 8.0 [facility] Hemoglobin NEGATIVE NEGATIVE [facility] Urine Ketones Urine NEGATIVE NEGATIVE [facility] Glucose Urine NEGATIVE NEGATIVE [facility] Protein Urine NEGATIVE NEGATIVE [facility] Qual Leukocyte NEGATIVE NEGATIVE [facility] Esterase Urobilinogen NEGATIVE NEGATIVE [facility] Urine Bilirubin Urine NEGATIVE NEGATIVE [facility] Specimen Performing Organization Address [facility] Ph one Number [id number] [place], [place] [address] [place] documented in this encounter Visit Diagnoses Diagnosis Coronary atherosclerosis of [place] abilio nary artery documented in this encounter
--- OUTSIDE RECORDS SUMMARY | 2019-09-14 20:46 | XMS REPORT | Encounter Summary ---
Author Author [facility] Organization [facility] Address Unknown Phone Unavailable Care Team Providers Care Machine Feller Name Role Phone Ananth Black PCP Encounter Details Care Team Description Date Type Department Olman Holloway MD [address] [address] [phone] 10/12/2007 [facility] C [...] Signs Reading Time Taken Comments Vital Sign 122/70 10/12/2007 11:39 AM CDT Blood Pressure 78 10/12/2007 11:39 AM CDT Pulse - - Temperature - - Respiratory Rate - - Oxygen Saturation - - Inhaled Oxygen Concentration 96.2 kg (212 lb) 10/12/2007 11:39 AM CDT obese Weight 170.2 cm (5' 7") 10/12/2007 11:39 AM CDT Height 33.2 10/12/2007 11:39 AM CDT Body Mass Index documented in this encounter Progress Notes * Olman Holloway MD - 10/12/2007 11:15 AM CDT [facility] [place] [address] Phone: [phone] Fax: [phone] October 12, 2007 ANANTH BLACK MD [facility] [place] [address] RE: CARL CHILDERS CORRECTED COPY : 1935 Chart #: [id number] Dear Dr. BLACK: I had the pleasure of seeing CARL CHILDERS in the office today. He is 72 years of age and presents with the following chief complaints: Post CABG, dizziness. HPI: He is about six weeks post four vessel CABG. He has not been having chest pain s, dyspnea, palpitations, syncope or presyncope. He is walking about 45 minutes a day without symptoms. He has mild renal insufficiency (GFR slightly below 60), dyslipidemia, Type 2 di abetes and peripheral vascular disease. Problem List: 07/10/2004 CAD MPI Inferior wall ischemia. LVEF 51%.Image appearances are simil ar to those of July 22, 2003. 08/24/2007 CAD MPI Stress Test Mild to [...] on date of dictation at 1525 hours. DM 05/22/2004 Dyslipidemia 08/24/2007 EF MPI Rest EF: 71, Stress EF: 62 Obesity 11/17/2006 PVD Aortoiliac Duplex 1. Moderate atherosclerosis within the abdomin al aorta. 2. Normal abdominal aorta dimensions. 3. Increased flow velocities in the distal aorta (2.9 m/s) consistent with a significant stenosis. 4. Increased flow velocities in the right common iliac consistent with a 50-75% stenosis. 5. Increased flow velocity (3.6 m/s) is incidentally noted in the right renal arter y. 12/30/2006 PVD Carotid Duplex 1. Atcovaqh-pi-hceqrl atherosclerotic plaque in b oth common and [...] for details of the nonvascular findings. 02/13/2007 PVD Renal angiography Bilateral renal stent -Right Renal Artery from 99% to 0% post 5.5 x 18mm Herculink Plus Stent post-dilated with a 6.5 mm balloo n secondary to marked post-stenotic dilatation. 08/24/2007 PVD Renal Duplex 1. Normal velocities in both renal arteries with no evidence for a significant stenosis. 2. Both kidneys are equal in size. Past Medical History: Anxiety Cholelithiasis Obesity Osteoporosis Diverticulosis Perforated diverticulum Osteoarthritis Osteopenia Erectile Dysfunction Colon polyps Gallbladder dysfunction BPH Squamous cell CA 2001 Sleep Apnea on CPAP 2003 Past Surgical History: Surgery for Squamous Cell cancer Colon resection 1998 Appendectomy 1998 Skin Cancer Removal 2001 Current Medications: Dulcolax Stool Softener 100mg Toprol XL 25mg Take one tablet by mouth in the AM. Iron 150-100mg Take one tablet by mouth daily Zocor 40mg Take one tablet by mouth daily Prilosec OTC 20mg Take one tablet by mouth daily Fish Oil Take two capsules by mouth twice per day Ecotrin 81mg Take one tablet by mouth daily Zoloft 50mg Take one tablet by mouth daily Caltrate 600mg-400 Take one tablet by mouth two times per day Multivitamin Take one tablet by mouth daily Allergies: No Known Allergies Family History: Father Cause of was DC at age 62. Mother Cause of was CVA at age 82. Brother Diagnosed with HTN. Cause of was CRF at age 67. Brother Cause of was CABG at age 71. Sister Cause of was CA at age 86. Social History: Marital Status: Children: 3 Occupation: - Retired Advance Directives: There are no advance directives. Diet: Low fat/chol, Low salt Exercise: Regular, walking daily Smoking: Former smoker of two packs per day for 25 years. Quit in 1977 Alcohol: Currently drinks one can of beer weekly Caffeine: Caffeine use: Three cups of coffee ROS: 12-point review of systems is negative with the following exceptions: Pulmonary: Daytime drowsiness, Sleep apnea Cardiovascular: Lightheadedness GI: Black or bloody stools Neuro: Disequilibrium Musculoskeletal/Dermatology: Arthralgias Hematology: Anemia, Epistaxis Physical Exam: Vital Signs The patient is 5ft 7in tall, and weighs 212lbs. The BMI is 33.20. B lood pressure taken in the left arm is 122/70 mmHg in the sitting position. The pul se is 78. The rhythm is regular. Const The patient is an obese male. Cardiac Regular rate and rhythm. Normal S1 and S2. No murmur, rub, or gallop pre sent. HEENT The patient's sclerae are clear. The patient's neck veins are flat. Pulm The lungs are dull to percussion in the left base. Vasc The right and left carotid upstrokes are normal. There are normal right an d left femoral pulses. The right and left popliteal pulses are normal. There ar e right and left carotid bruits present. EXT The extremities are warm to touch. There is no edema noted. EKG: Rhythm: Sinus and PACs Rate: 76 AV Conduction: Right bundle branch block Impression and Plan: 1. Early post CABG: His physical exam and chest x-ray today both show the prese nce of a small, moderate sized left pleural effusion. He is asymptomatic. This should, however, be followed up with a repeat chest x-ray in approximately one month. 2. Abnormal electrocardiogram: He has a new right bundle-branch block subsequen t to surgery. I am going to have him undergo an echocardiogram in the next 24 hours. I suspect that ventricular function will continue to be normal but I did want to be sure about this. 3. Coronary and peripheral vascular disease with dyslipidemia: He has numerous questions about diet and various types of medications. I am going to enroll him in the [facility]. 4. Type 2 diabetes: Being managed by you. 5. Mild renal insufficiency: Appears stable. Follow up: Olman Holloway M.D. 1 Year Clinics: Enrolled in the Lipid Clinic at [facility] Thank you for allowing me to participate in CARL CHILDERS's care. If I can be of any further assistance, please do not hesitate to contact me. Sincerely, Olman Holloway M.D. TMB:allyssa:catarina/savage/leonora F: 10/19/2007 documented in this encounter Plan of Treatment Not on filedocumented as of this encounter Visit Diagnoses Not on filedocumented in this encounter
--- OUTSIDE RECORDS SUMMARY | 2019-09-14 20:46 | XMS REPORT | Encounter Summary ---
Author Author [facility] Organization [facility] Address Unknown Phone Unavailable Care Team Providers Care Lockstitch Coat Joiner Name Role Phone Charmaine Black PCP Encounter Details Care Team Description Date Type Department Tim Tate MD [address] [facility] [address] [place] [address] [phone] 07/11/2009 [facility] [...]
--- OUTSIDE RECORDS SUMMARY | 2019-09-14 20:46 | XMS REPORT | Encounter Summary ---
Author Author [facility] Organization [facility] Address Unknown Phone Unavailable Care Team Providers Care Mixing And Molding Machine Operator Name Role Phone Hailey Blackhleen PCP Encounter Details Care Team Description Date Type Department Slcc ProviderLuc MD 09/23/2008 [facility] Result Social [...] Priority Date/Time Associated Diag nosis CV US RENAL HISTORICAL Routine 09/23/2008 documented in this encounter Results * CV US Renal historical (09/23/2008) Specimen Narrative Performed At Procedure Category: ECHO NEXTGEN Procedure: Renal Duplex Procedure Summary: Normal velocities in both renal arteries with no evidence for a significant stenosis, including the s tent in the right renal artery. A cyst, measuring 1.4 cm x 1.5 cm, is present in the left kidney. No significant change from 08/24/2007. Procedure Note Interface, Rad Conversion - 09/25/2014 5:30 AM CDT Procedure Category: ECHO Procedure: Renal Duplex Procedure Summary: Normal velocities in both renal arteries with no evidence for a significant stenosis, including the stent in the right renal artery. A cyst, measuring 1.4 cm x 1.5 cm, is present in the left kidney. No significant change from 08/24/2007. Performing Organization Address City/State/Zipcode Ph one Number NEXTGEN documented in this encounter Visit Diagnoses Not on filedocumented in this encounter
--- OUTSIDE RECORDS SUMMARY | 2019-09-14 20:47 | XMS REPORT | Encounter Summary ---
Author Author [facility] Organization [facility] Address Unknown Phone Unavailable Care Team Providers Care Retail Inventory Control Clerk Name Role Phone Ananth Black PCP Encounter Details Care Team Description Date Type Department Benjie Palomino MD No Forwarding Address 01/10/2007 [facility] - Hist [facility] HISTORIC CLINI C Visit Social History Date Tobacco Use Types Packs/Day Years Used Never Assessed Sex Assigned at Date Recorded Not on file Industry Job Start Date Occupation Not on file Not on file Not on file Travel End Travel History Travel Start No recent travel history available. documented as of this encounter Progress Notes * Benjie Palomino MD - 01/10/2007 11:13 AM [facility] Office [address] [place] [phone] 01/16/2007 ANANTH BLACK MD [address] [facility] [place] [address] Re: CARL CHILDERS : 1935 Chart#: [id number] Dear Dr. BLACK: This is a followup note regarding CARL CHILDERS. He has completed his cardiac fili ting and I am writing to share the results with you. He had the following tests: Carotid duplex: 1. [id number]-vu-[id number] atherosclerotic plaque in both common and internal carotid arteries with no evidence for a hemodynamically significant stenosis.2. There is a >50% stenosis in the right ECA.3. Both vertebral arteries are patent with antegrade flow. Based on the above, I am recommending the following: - continue medical treatment. - repeat carotid duplex in 1 year. Follow up is requested as planned. These test results along with my recommendations have been communicated to CARL CHILDERS. I hope this information is useful to you. If you should have any quest ions or concerns, please do not hesitate to contact me. Sincerely, Benjie Palomino M.D. UMER LOAN SPECIALIST documented in this encounter Plan of Treatment Not on filedocumented as of this encounter Visit Diagnoses Not on filedocumented in this encounter
--- OUTSIDE RECORDS SUMMARY | 2019-09-14 20:47 | XMS REPORT | Encounter Summary ---
Author Author [facility] Organization [facility] Address Unknown Phone Unavailable Care Team Providers Care Jig Worker Name Role Phone Charmaine Black PCP Encounter Details Care Team Description Date Type Department Benjie Palomino MD No Forwarding Address 05/16/2007 [facility] - Hist [facility] HISTORIC CLINI C Visit Social [...]
--- OUTSIDE RECORDS SUMMARY | 2019-09-14 20:47 | XMS REPORT | Encounter Summary ---
Author Author [facility] Organization [facility] Address Unknown Phone Unavailable Care Team Providers Care Area Cleaner Name Role Phone Charmaine Black PCP Encounter Details Care Team Description Date Type Department 08/25/2007 [facility] - Hist [facility] HISTORIC CLINI C Visit Social History [...]
--- OUTSIDE RECORDS SUMMARY | 2019-09-14 20:47 | XMS REPORT | Encounter Summary ---
Author Author [facility] Organization [facility] Address Unknown Phone Unavailable Care Team Providers Care Vp Information Technology Name Role Phone PCP Unavailable Encounter Details Care Team Description Date Type Department Benjie Carter MD No Forwarding Address Atherosclerosis of Renal Artery (HCC) [facility]/14/2007 Social History Date Tobacco Use Types Packs/Day Years Used Never Assessed Sex Assigned at Date Recorded Not on file Industry Job Start Date Occupation Not on file Not on file Not on file Travel End Travel History Travel Start No recent travel history available. documented as of this encounter Discharge Summaries * Beatriz Leal RN ANP - 05/05/2013 11:49 AM MIX MAKER REPORT Name: CARL CHILDERS MRN/Unit #: [id number] Attending Physician: BENJIE CARTER MD Date of : 1935 DATE OF ADMISSION: 02/13/2007 DATE OF DISCHARGE: 02/14/[address] Black: I had the pleasure of dismissing your patient from the [facility]. He is a 71-year-old with known history of coronary artery disease and hypertension, who has been followed in our clinic by Dr. Tim Tate. He recently underwent an aortoiliac duplex because of a strong family history of abdominal aortic aneurysm, which did reveal increasing velocities in the distal aorta. Ankle brachial indices went on to determine peripheral arterial disease with mildly abnormal on the right and moderately elevated bilateral post exercise. He has been walking up to 3 miles a day and actually has improvement in the claudication symptoms. A followup CT angiography did reveal severe right renal artery stenosis, and he does have a long history of hypertension that he states lately has been difficult to control. He was electively admitted on 02/13/2007 and underwent renal angiography, which was performed by Dr. Benjie Carter, in which the following anatomy was identified. Single left renal artery with plaquing and right renal artery had a 99% lesion. In the same setting he underwent peripheral angioplasty and stenting to the right renal artery in which a 5.5 x 18 mm Herculink stent was placed. His postprocedure was uncomplicated. He has been up ambulating without difficulty. Right common femoral artery is soft and nontender with no evidence of hematoma or bruit. Distal pedal pulses are intact. His blood pressure this a.m. is 121/65. Of note, he has been recently started on FINA inhibitor approximately 6 weeks ago and has noted a dry hacking cough. Of note, there were also concerns over pancytopenia with his hemoglobin in the range of 12.6 with RBC of 4.1 and platelets of 133. DISCHARGE MEDICATIONS: 1. Benicar/HCT 40/25 mg daily. 2. Aspirin 81 mg daily. 3. Os-Momo daily. 4. Plavix 75 mg for 1 month. 5. Pepcid 20 mg daily. 6. Toprol XL 50 mg daily. 7. Multivitamin daily. 8. [place] 3 fish oil daily. 9. Vytorin 10/40 mg half a tablet daily. 10. Zoloft 50 mg daily. LABORATORY FINDINGS: Followup hemoglobin 12.3, hematocrit 37, platelets 126, potassium 3.8, creatinine 1.4. PRINCIPAL PROCEDURE: Renal angiography with NUCLEAR PHYSICIAN and stenting of the right renal artery. DISCHARGE DIAGNOSES: 1. Renal artery stenosis. 2. Hypertension. 3. Questionable pancytopenia. 4. Coronary artery disease as manifested by abnormal myocardial perfusion scan. 5. Dyslipidemia. 6. History of sleep apnea. 7. Cerebrovascular disease. DISMISSAL PLAN: Discharge directed by Dr. Benjie Carter. DISMISSAL PLAN: 1. He will monitor his blood pressure and home and plans to follow up with us in [address] Benjie Carter. Of note, he does have a [address] We have scheduled a 3 month appointment, but if there are any concerns over his blood pressure he understands to contact our office sooner for an earlier appointment. 2. Follow up ultrasound of his renal arteries in 6 months. 3. He has an annual appointment with Dr. Tim Tate later this year. Consideration will be made for undergoing a repeat myocardial perfusion scan at that time. 4. Carotid duplex in 1 year given cerebrovascular disease. 5. CBC in [address] Benjie Carter. Beatriz Leal RN,BC,ANP Dictated By: cc: Charmaine Black MD MAKER documented in this encounter Medications at Time [...] tablet by mouth two times per day 07/09/2004 02/19/2015 sertraline (ZOLOFT) 50 MG Take one 0 0 tablet tablet by mouth daily 07/09/2004 10/09/2014 vardenafil (LEVITRA) 20 PRN 0 0 MG tablet documented as of this encounter Miscellaneous Notes * Operative Note - Benjie Carter MD - 05/05/2013 11:50 AM MIX MAKER REPORT Name: CARL CHILDERS MRN/Unit #: [id number] Attending Physician: BENJIE CARTER MD Date of : 1935 CV LAB NUMBER: DATE: 02/13/2007. PROCEDURE: Bilateral renal angiography; percutaneous transluminal angioplasty and stent of the right renal artery. INDICATIONS: Hypertension, severe renal artery stenosis, abnormal duplex and abnormal CT angiography. CONDITION: The patient tolerated the procedure well without complications. DESCRIPTION OF PROCEDURE: After informed consent was obtained, the patient was brought to the angiography suite in the fasting condition. The right groin was prepped and draped in the usual sterile fashion. 1% lidocaine was used for local anesthesia in the right femoral region. A 6 Austrian sheath was placed in the right femoral artery using a modified Seldinger technique. Pressure was obtained. Next, a 6 Austrian crossover catheter was advanced to the abdominal aorta and pressure was obtained. There was no gradient from the abdominal aorta to the right common femoral artery. Next, the catheter was directed into the left renal artery and cineangiogram was performed. Next, the catheter was directed into the right renal artery and there was a severe gradient. Angiogram was performed. FINDINGS: 1. The left renal artery is single and plaquing. 2. Right renal artery - 99% pre with marked poststenotic dilatation. Preparation was made for angioplasty. The patient received 5000 units of heparin intravenously. An 0.014 Spartacore guidewire was advanced across the stenosis through the catheter. The catheter was exchanged for a 6 LEXIS iMall.euipath guiding catheter. Next, balloon dilatation was performed with a 4.5 x 2 ViaTrack balloon catheter. Next, I elected to stent this region with a 5.5 x 18 mm Herculink Plus stent. There was marked poststenotic dilatation, so I did perform balloon dilatation within the stent with a 6 mm and then 6.5 mm ViaTrack balloon catheters to 14 atmospheres. Repeat cineangiogram revealed an excellent result with 0% residual as far as the stenosis. There is still marked poststenotic dilatation. I elected to accept this result. The angiogram was performed through the sheath and the right common femoral artery was closed using a 6 Austrian Perclose device. FINAL IMPRESSION: Percutaneous transluminal angioplasty and stent of the right renal artery from 99% pre to 0% post, ultimately deploying a 5.5 x 18 mm Herculink Plus stent post-dilated with a 6.5 mm balloon secondary to marked poststenotic dilatation. Benjie Carter M.D. Dictated By: cc: MAKER documented in this encounter Plan of Treatment Not on filedocumented as of this encounter Procedures Comments Procedure Name Priority Date/Time Associated Diag nosis GLUCOSE POINT OF CARE Routine 02/14/2007 11:27 AM MIX MAKER GLUCOSE POINT OF CARE Routine 02/14/2007 7:27 AM MIX MAKER PLATELET Routine 02/14/2007 4:05 AM MIX MAKER HEMOGLOBIN AND HEMATOCRIT Routine 02/14/2007 4:05 AM MIX MAKER ELECTROLYTES Routine 02/14/2007 4:05 AM MIX MAKER CREATININE Routine 02/14/2007 4:05 AM MIX MAKER BLOOD UREA NITROGEN Routine 02/14/2007 4:05 AM MIX MAKER GLUCOSE POINT OF CARE Routine 02/13/2007 9:19 PM MIX MAKER GLUCOSE POINT OF CARE Routine 02/13/2007 5:01 PM MIX MAKER GLUCOSE POINT OF CARE Routine 02/13/2007 12:21 PM MIX MAKER GLUCOSE POINT OF CARE Routine 02/13/2007 9:27 AM MIX MAKER documented in this encounter Results * Glucose Point of Care (02/14/2007 11:27 AM MIX MAKER) Only the most recent of 6 results within the time period is included. Glucose 126 (H) 65 - 100 MG/DL SUNQUEST Specimen Performing Organization Address [facility] one Number [id number] [place] [phone] SUNQUEST * Hemoglobin and Hematocrit (02/14/2007 4:05 AM MIX MAKER) Hemoglobin 12.3 (L) 13.0 - 17.0 G/DL SUNQUEST Hematocrit 37 (L) 40 - 50 % SUNQUEST Specimen Performing Organization Address [facility] Ph one Number [id number] [place] [phone] SUNQUEST * Platelet (02/14/2007 4:05 AM MIX MAKER) Platelet Count 126 (L) 140 - 400 TH/UL SUNQUEST Specimen Performing Organization Address [facility] Ph one Number [id number] [place] [phone] SUNQUEST * Blood Urea Nitrogen (02/14/2007 4:05 AM MIX MAKER) Blood Urea 24 8 - 26 MG/DL SUNQUEST Nitrogen Specimen Performing Organization Address [facility] Ph one Number [id number] [place] [phone] SUNQUEST * Creatinine (02/14/2007 4:05 AM MIX MAKER) Creatinine 1.4 (H) 0.9 - 1.3 MG/DL SUNQUEST Specimen Performing Organization Address [facility] Ph one Number [id number] [place], [place] [address] SUNQUEST * Electrolytes (02/14/2007 4:05 AM MIX MAKER) Sodium 135 134 - 144 MEQ/L SUNQUEST Potassium 3.8 3.5 - 5.1 MEQ/L SUNQUEST Chloride 104 101 - 111 MEQ/L SUNQUEST Carbon Dioxide 28 23 - 32 MEQ/L SUNQUEST Anion Gap 3 3 - 15 SUNQUEST Specimen Performing Organization Address [facility] Ph one Number [id number] [place], [place] [address] SUNQUEST documented in this encounter Visit Diagnoses Diagnosis Atherosclerosis of renal artery (HCC) Atherosclerosis of renal artery documented in this encounter
--- OUTSIDE RECORDS SUMMARY | 2019-09-14 20:47 | XMS REPORT | Encounter Summary ---
Author Author [facility] Organization [facility] Address Unknown Phone Unavailable Care Team Providers Care Welfare Manager Name Role Phone Ananth Black PCP Encounter Details Care Team Description Date Type Department Tim Tate MD [address] [address] [phone] 08/24/2007 [facility] C [...] Signs Reading Time Taken Comments Vital Sign 138/74 08/24/2007 9:03 AM CDT Blood Pressure 63 08/24/2007 9:03 AM CDT Pulse - - Temperature - - Respiratory Rate - - Oxygen Saturation - - Inhaled Oxygen Concentration 100.2 kg (221 lb) 08/24/2007 9:03 AM CDT obese Weight 170.2 cm (5' 7") 08/24/2007 9:03 AM CDT Height 34.61 08/24/2007 9:03 AM CDT Body Mass Index documented in this encounter Progress Notes * Tim Tate MD - 08/24/2007 9:00 AM CDT [place] [facility] [address] [place] [address] Phone: [phone] Fax: [phone] August 24, 2007 ANATNH BLACK MD [address] [place] [address] [place] [address] RE: CARL CHILDERS : 1935 Chart #: [id number] Dear Dr. BLACK: I had the pleasure of seeing CALR CHILDERS in the office today. He is 72 years of age and presents with the following chief complaints: Peripheral vascular disea se, hypertension. HPI: He is a delightful 72-year-old gentleman who returns with his for a routine follow-up visit. From a cardiovascular standpoint, he is doing well without sy mptoms of angina, heart failure, orthopnea, edema, or palpitations. His blood p ressure is better controlled since he underwent renal stenting that we discovere d somewhat incidentally last year as he underwent screening duplex imaging of hi s abdominal aorta. He has well controlled risk factors. His blood pressure at home is generally 115/120. He does get an occasional bout of lightheadedness wh en he stands up too quickly after gardening. His exercise tolerance has been li mited by arthritis complaints in his knees. He is off Celebrex since the [facility] , though it sounds like his Celebrex was fairly helpful in helping with h is knee pain, which has returned in the last few months. He has seen an orthope dic surgeon, who is considering knee replacement. He is scheduled for a stress test later today. Problem List: 07/10/2004 CAD MPI Inferior wall ischemia. LVEF 51%. Image appearances are simil ar to those of July 22, 2003. DM 05/22/2004 Dyslipidemia 07/10/2004 EF MPI Rest EF: 51, Stress EF: 51 Obesity 11/17/2006 PVD aorto-iliac duplex 1. Moderate [...] arter y. 12/30/2006 PVD Carotid Duplex 1. [id number] atherosclerotic plaque in b oth common and [...] for details of the n onvascular findings. 02/13/2007 PVD Renal angiography Bilateral renal stent -Right Renal Atery from 9 9% to 0% post 5.5 x 18mm Herculink Plus Stent post-dilated with a 6.5 mm balloon secondary to marked poststenotic dilatation. 05/22/2007 PVD Renal Duplex 1. Normal velocities in both renal arteries with no evidence for a significant stenosis. 2. Both kidneys are equal in size. 3. A cys t, measuring 1.1cm x 1.1cm, is present in the left kidney. Past Medical History: Anxiety Cholelithiasis Obesity Osteoporosis Perforated diverticulum Osteoarthritis Osteopenia Erectile Dysfunction Diverticulosis Colon polyps Gallbladder dysfunction BPH Squamous cell CA 2001 Sleep Apnea on CPAP 2003 Past Surgical History: Surgery for Squamous Cell cancer Appendectomy 1998 Colon resection 1998 Skin Cancer Removal 2001 Current Medications: Prilosec OTC 20mg Take one tablet by mouth daily Fish Oil Take two capsules by mouth twice per day Benicar HCT 40-25mg Toprol XL 50mg Take one tablet by mouth daily Vytorin 10/40 Mg Take 1/2 tablet by mouth daily Ecotrin 81mg Take one tablet by mouth daily Zoloft 50mg Take one tablet by mouth daily Pepcid 20mg Take one tablet by mouth daily Caltrate 600mg-400 Take one tablet by mouth two times per day Multivitamin Take one tablet by mouth daily Medications Prescribed During This Visit: Zocor 40mg Take one tablet by mouth daily Medications Stopped This Visit: Vytorin 10/40 Mg Take 1/2 tablet by mouth daily Allergies: No Known [...] There are no advance directives. Diet: Low fat/chol Exercise: Sedentary Smoking: Former smoker of 2.00 packs per day for 25.00 years. Quit in 1977 Alcohol: Currently drinks 1 can of beer weekly Caffeine: Caffeine use: 2 cups of coffee ROS: 12-point review of systems is negative with the following exceptions: Cardiovascular: Lightheadedness Musculoskeletal/Dermatology: Myalgias, Arthralgias Physical Exam: Vital Signs The patient is 5ft 7in tall, and weighs 221lbs. The BMI is 34.60. B lood pressure taken in the right arm is 138/74 mmHg in the sitting position. The pulse is 63 . The rhythm is regular. Const The patient is an obese male. HEENT The patient's sclerae are clear. The patient's neck veins are flat. Pulm Lungs are clear to auscultation. Cardiac Regular rate and rhythm. Normal S1 and S2. No murmur, rub, or gallop pre sent. Abd The patient has no abdominal tenderness to palpation. The abdominal aorta i s not palpable. Vasc The right and left carotid upstrokes are normal. There are normal right an d left femoral pulses. The right and left popliteal pulses are normal. No carotid bru its. EXT The extremities are warm to touch. There is no edema noted. Neuro/Psych The patient is alert and oriented to time, person and place. EKG: Result: Normal sinus rhythm, normal EKG. Most Recent Lipids Available for Review: Date Collected Fasting Chol HDL LDL Trig Ratio Glucose 08/02/2007 yes 129.00 32.00 48.00 247.00 4.03 99 Impression and Plan: 1. Diffuse vascular disease with significant atherosclerotic plaque in the carot ids, abdominal aorta, and status post renal stenting. 2. Preserved left ventricular function with inferior wall ischemia. He is sched uled for a repeat stress test today. 3. Diabetes. 4. Blood pressure well controlled. 5. Dyslipidemia, on Vytorin, for which I will change him to Zocor 40 mg, which s hould be equivalent to his half dose of Vytorin 10/40. 6. I believe it is relatively safe for him to go back on Celebrex. The subtleti es of the anti-inflammatories and nonsteroidal anti-inflammatory drugs with his . I will update you once his stress test is available. Follow up: Tim Tate M.D. 1 Year Thank you for allowing me to participate in CARL CHILDERS's care. If I can be of any further assistance, please do not hesitate to contact me. Sincerely, Tim ABERNATHY/ton cc: [employer] Counselor F: 08/24/2007 documented in this encounter Plan of Treatment Not on filedocumented as of this encounter Visit Diagnoses Not on filedocumented in this encounter
--- OUTSIDE RECORDS SUMMARY | 2019-09-14 20:47 | XMS REPORT | Encounter Summary ---
Author Author [facility] Organization [facility] Address Unknown Phone Unavailable Care Team Providers Care Human Resources Mgr Name Role Phone Charmaine Black PCP Encounter Details Care Team Description Date Type Department 02/14/2007 [facility] C Visit Social History Date [...]
--- OUTSIDE RECORDS SUMMARY | 2019-09-14 20:47 | XMS REPORT | Encounter Summary ---
Author Author [facility] Organization [facility] Address Unknown Phone Unavailable Care Team Providers Care Settlement Processor Name Role Phone PCP Unavailable Encounter Details Care Team Description Date Type Department Kiana Espinosa MD [address] [facility] [address] [place] [address] [phone] Coronary Atherosclerosis of [place] Coron juan david Artery 08/24/2007 [facility] - Encounter 08/26/2007 Social History Date Tobacco Use Types Packs/Day Years Used Never Assessed Sex Assigned at Date Recorded Not on file Industry Job Start Date Occupation Not on file Not on file Not on file Travel End Travel History Travel Start No recent travel history available. documented as of this encounter Discharge Summaries * Richard Freeman MD - 05/05/2013 10:38 AM RN REHAB REPORT Name: CARL CHILDERS MRN/Unit #: [id number] Attending Physician: KIANA ESPINOSA Date of : 1935 DATE OF ADMISSION: 08/24/2007 DATE OF DISCHARGE: 08/26/2007 The patient is a 72-year-old gentleman who was admitted to the hospital yesterday following a very abnormal nuclear test. His nuclear stress test was performed 08/24/2007 and showed mild to moderate ischemia in the distribution of the left anterior descending carcinoma and right coronary artery occurring at a low work load with markedly positive ST segment change at low work load with normal left ventricular systolic function with left ventricular ejection fraction at rest of 71%. He did receive sublingual nitroglycerin early in the recovery period because of chest pain symptoms. He had a cardiac catheterization during the course of his admission, which showed right dominant coronary circulation. The left main showed minor luminal irregularities. Mid LAD had an 80% stenosis. First diagonal showed 70% stenosis. Mid circumflex had 70% stenosis. First OM 80% stenosis. Proximal RCA with 80% stenosis. Mid RCA with a 60% stenosis. Distal RCA with an 80% stenosis. Right PDA with 90% stenosis. CT Surgery was consulted for coronary artery bypass grafting. They are planning on scheduling him for surgery on August 30. He will be discharged home tomorrow with the anticipation of surgery on the . DISCHARGE MEDICATIONS: 1. Aspirin 81 mg p.o. daily. 2. Toprol XL 50 mg p.o. daily. 3. Benicar HCTZ 40/25 mg p.o. daily. 4. Zoloft 50 mg p.o. daily. 5. Zocor 40 mg p.o. daily. 6. Prilosec 40 mg p.o. daily. 7. [place] 3 fish oil 1000 mg p.o. daily. DISCHARGE DIAGNOSES: 1. Three-vessel coronary artery disease. 2. Diabetes mellitus type 2. 3. Hyperlipidemia. 4. Obesity. 5. Peripheral vascular disease. 6. Anxiety. 7. Cholelithiasis. 8. Osteoporosis. 9. Osteoarthritis. 10. Osteopenia. 11. Erectile dysfunction. 12. Gallbladder dysfunction. 13. Benign prostate hypertrophy. 14. Obstructive sleep apnea on CPAP. The patient is to take all medications as directed, to keep all followup appointments and to return on morning in order to undergo coronary artery bypass grafting. ADDENDUM: The patient remained stable overnight. Vital signs were unchanged and stable. The patient had no complaints and no acute events occurred. The patient is scheduled for coronary artery bypass on the . The patient will be discharged today after he has a carotid Doppler performed secondary to his history of carotid artery stenosis as a preoperative measure. He will be discharged in stable condition without any difficulties and will return preoperatively on the day of the operation to have his bypass performed. Richard Carbone Jr, MD Dictated By: Rima Maldonado M.D. Addendum [id number] 200/wp cc: Charmaine Black MD REHAB documented in this encounter Medications at Time [...] MG tablet documented as of this encounter H&P Notes * hPillip Davison MD - 05/05/2013 10:38 AM RN REHAB REPORT Name: CARL CHILDERS Date of : 1935 MRN/Unit #: [id number] Attending Physician: KIANA ESPINOSA Consulting Physician: Phillip Davison MD CHIEF COMPLAINT: Coronary artery disease. HISTORY OF THE PRESENT ILLNESS: Mr. Childers is a 72-year-old male who returned to his cardiologists yesterday for a routine follow-up visit. At that time, the patient denied any symptoms, including angina, palpitations, dyspnea with exertion, syncope and pedal edema. The only complaint Mr. Childers had was dizziness and lightheadedness while working in the garden. He does have a history of diffuse vascular disease, including known carotid artery disease and renal artery disease, and is status post right stent placement to the right renal artery in February of last year. Since the stenting, the patient has done very well. The patient's stress test yesterday did come back as abnormal; therefore, he was admitted for cardiac catheterization. This catheterization did reveal diffuse arterial disease including an 80% lesion in the mid LAD, 70% stenosis in the first diagonal, 70% mid circumflex, 80% in the first OM, 80% proximal RCA, 60% mid RCA, 80% distal RCA and 90% in the right PDA. Due to these findings, we were asked to evaluate the patient for bypass surgery. ALLERGIES: NO KNOWN DRUG ALLERGIES. MEDICATIONS: 1) Ecotrin 81 mg p.o. daily. 2) Toprol XL 50 mg p.o. daily. 3) Benicar HCT 40/25 p.o. daily. 4) Zoloft 50 mg p.o. daily. 5) Zocor 40 mg p.o. daily. 6) Prilosec 40 mg p.o. daily. 7) Fish oil 1000 mg p.o. daily. PAST MEDICAL HISTORY: Carotid artery disease, renal artery disease, anxiety, cholelithiasis, obesity, osteoporosis, perforated diverticulum, osteoarthritis, osteopenia, erectile dysfunction, diverticulosis, colon polyps, gallbladder dysfunction, squamous cell cancer, sleep apnea and BPH. PAST SURGICAL HISTORY: Surgery for squamous cell cancer, appendectomy in 1998, colon resection in 1998, cancer removal in 2001, and right renal artery stent in February 2007. REVIEW OF SYSTEMS: Constitutional - no fever, chills or weight loss. Integumentary - no rash, pruritus or bruisability. HEENT - vision is adequate with the use of glasses. No epistaxis. The patient does wear partial lower dentures. Respiratory - no cough, shortness of breath or hemoptysis. Cardiovascular - no angina, syncope, dyspnea with exertion, palpitations, orthopnea or pedal edema. GI - denies abdominal pain, nausea, vomiting, constipation or diarrhea. No hematemesis, hematochezia or melena. - no urinary frequency or dysuria. The patient does report 1x nocturia. Musculoskeletal - positive for generalized arthritis predominantly in the knees. No claudication symptoms. Neurologic - no history of stroke or seizure. Endocrine - positive for diabetes. No thyroid abnormality. Hematologic - no bleeding tendencies. PHYSICAL EXAMINATION: CONSTITUTIONAL: A well-developed and well-nourished white male in no acute distress. SKIN: Warm and acyanotic. No masses or lesions. HEENT: Atraumatic, normocephalic. The pupils are equal, round and reactive to light and accommodation. EOMs are full. Conjunctivae pink and moist. Dentition good repair. NECK: The neck is supple. No JVD, bruit, adenopathy or thyroid abnormality. Carotid upstrokes normal. LUNGS: Clear to auscultation with good breath sounds. HEART: Regular rate and rhythm. No murmur. ABDOMEN: Positive bowel sounds. Soft. Nondistended. Nontender. No mass or hepatosplenomegaly. EXTREMITIES: Strength and tone intact. Full range of motion. No deformity. Dorsalis pedis and posterior tibialis pulseless bilaterally. NEUROLOGIC: Alert and oriented x3. Normal affect. LABORATORY: White blood cell count 4.6, hemoglobin 12.5, hematocrit 37, platelets 116. Sodium 140, potassium 4.3, creatinine 1.2, BUN 23, INR 1.0. DIAGNOSTIC STUDIES: Stress test does reveal mild to moderate ischemia in the distribution of the LAD and RCA. Markedly positive ST segment changes normal. Left ventricular systolic function is 71%. ASSESSMENT AND PLAN: This is a 72-year-old with the following - 1) Multivessel coronary artery disease with a preserved ejection fraction. 2) History of carotid artery disease. Duplex performed one year ago did reveal greater than 50% stenosis on the right, but no other significant hemodynamic stenosis. Will recheck a carotid duplex. 3) Status post right renal artery stent. 4) Dyslipidemia. 5) Hypertension. 6) Anxiety and depression. 7) Obesity. 8) Diabetes, [id number]. The risks and benefits of surgery were discussed with the patient. They have no further questions at this time. They are agreeable to bypass surgery. Surgery will be scheduled next , August 30, with Phillip Davison MD. Surgery is postponed secondary to the use of Plavix. We will preop the patient today. ADDENDUM DICTATED BY PHILLIP DAVISON M.D. I have reviewed the allergies, medications, past medical history, past surgical history, and review of systems, as well as laboratory data and diagnostic studies. HISTORY OF PRESENT ILLNESS: Mr. 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 At that time, he denied any symptoms including angina, palpitations, dyspnea on exertion, syncope, pedal edema, PND. His only complaint was dizziness and lightheadedness while working in the garden. He has a history of diffuse vascular disease including known CAD, known peripheral vascular disease, renal artery stenosis, carotid artery stenosis, and had a right renal stent placed in February of last year. Since the stent, the patient has done well. He underwent a stress test which was abnormal. A cardiac catheterization followed showing 3-vessel severe coronary artery disease with 70-80% lesions in all major branches of his coronary arteries. SOCIAL HISTORY: The patient does not drink alcohol. He is a previous smoker but stopped many years ago. FAMILY HISTORY: Both parents are . There is a strong family history of heart disease in the family. PHYSICAL EXAMINATION: GENERAL: Well-developed and well-nourished, in no acute distress. SKIN: Warm, acyanotic. No masses or lesions. HEENT: Atraumatic and normocephalic. Pupils equal and reactive. Extraocular muscles normal. Dentition in good repair. NECK: Supple. No JVD. No thyroid abnormality. No carotid bruit. LUNGS: Clear. Bilateral breath sounds. HEART: Regular rate and rhythm. No murmur. No rub. ABDOMEN: Soft, nontender. Bowel sounds are normal. No mass or hepatosplenomegaly. EXTREMITIES: Strength and tone are intact. Full range of motion. No deformity. DP and PT are palpable. NEUROLOGICAL: Alert and oriented times 3. Normal affect. ASSESSMENT AND PLAN: A 72-year-old man with asymptomatic multivessel severe coronary artery disease and preserved ejection fraction. Mr. Childers will need a repeated carotid duplex examination because of his known history. I also agree with the need for coronary artery bypass surgery even though he is asymptomatic for prolongation of life expectancy. I have explained to him the benefits, risks and alternatives to surgery, and he wants to proceed. Phillip Davison MD Dictated By: Maribeth Del Rio PA-C T: 08/26/2007 08:09:17 cc: Addendum [id number] 08/29/2007/maurice REHAB documented in this encounter Plan of Treatment Not on filedocumented as of this encounter Procedures Comments Procedure Name Priority Date/Time Associated Diag nosis GLUCOSE POINT OF CARE Routine 08/26/2007 7:24 AM CDT COAGULATION SCREEN Routine 08/26/2007 3:30 AM CDT RETYPE PATIENT ABORH Routine 08/26/2007 3:30 AM CDT ANTIBODY SCREEN Routine 08/26/2007 3:30 AM CDT HEMOGLOBIN A1C Routine 08/26/2007 3:30 AM CDT COMPLETE BLOOD COUNT Routine 08/26/2007 3:30 AM CDT BASIC METABOLIC PANEL Routine 08/26/2007 3:30 AM CDT ALANINE AMINOTRANSFERASE Routine 08/26/2007 3:30 AM CDT ABORH TYPE Routine 08/26/2007 3:30 AM CDT XR CHEST 2 VIEWS (PA AND Routine 08/25/2007 LATERAL) 7:13 PM CDT GLUCOSE POINT OF CARE Routine 08/25/2007 4:26 PM CDT GLUCOSE POINT OF CARE Routine 08/25/2007 11:14 AM CDT INVASIVE CARDIOLOGY Routine 08/25/2007 REPORT 11:01 AM CDT COAGULATION SCREEN Routine 08/24/2007 7:27 PM CDT GFR NON- Routine 08/24/2007 7:27 PM CDT GFR Routine 08/24/2007 7:27 PM CDT RENAL PANEL Routine 08/24/2007 7:27 PM CDT COMPLETE BLOOD COUNT Routine 08/24/2007 7:27 PM CDT documented in this encounter Results * Glucose Point of Care (08/26/2007 7:24 AM CDT) Only the most recent of 3 results within the time period is included. Glucose 130 (H) 65 - 100 MG/DL [email or web address] Specimen Performing Organization Address City/State/Zipcode Ph one Number [id number] [phone] [place] [phone] [place] * Complete Blood Count (08/26/2007 3:30 AM CDT) Only the most recent of 2 results within the time period is included. WBC 3.9 (L) 4.0 - 11.0 TH/UL [place] RBC 3.94 (L) 4.31 - 5.84 MIL/UL [place] Hemoglobin 11.8 (L) 13.0 - 17.0 G/DL [place] Hematocrit 35 (L) 40 - 50 % [place] MCV 90 80 - 99 FL [place] MCH 30 27 - 34 PG [place] MCHC 33 32 - 36 % [place] RDW 13.9 <14.5 % [place] Platelet Count 121 (L) 140 - 400 TH/UL [place] MPV 9.9 9.4 - 12.3 [place] Specimen Performing Organization Address [facility] one Number [facility] [phone] [place] [place] [phone] [place] * Coagulation Screen (08/26/2007 3:30 AM CDT) Only the most recent of 2 results within the time period is included. APTT 30 22 - 34 SEC [place] Protime 14.3 11.9 - 14.3 SEC [place] INR 1.1 [place] Platelet Count 121 (L) 140 - 400 TH/UL [place] Fibrinogen 344 146 - 390 MG/DL [place] Assay Specimen Performing Organization Address [facility] one Number [facility] [phone] [place] [place] [phone] [place] * Alanine Aminotransferase (08/26/2007 3:30 AM CDT) Alanine 30 14 - 63 IU/L [place] Aminotransferas e Specimen Performing Organization Address [facility] one Number [facility] [phone] [place] [phone] [place] * Basic Metabolic Panel (08/26/2007 3:30 AM CDT) Sodium 139 134 - 144 MEQ/L [place] Potassium 4.2 3.5 - 5.1 MEQ/L [place] Chloride 107 101 - 111 MEQ/L [place] Carbon Dioxide 28 23 - 32 MEQ/L [place] Anion Gap 4 3 - 15 [place] Creatinine 1.2 0.9 - 1.3 MG/DL [place] Blood Urea 17 8 - 26 MG/DL [place] Nitrogen Glucose 115 (H) 65 - 100 MG/DL [place] Calcium 9.3 8.8 - 10.5 MG/DL [place] Specimen Performing Organization Address [facility] Ph one Number [facility] [phone] [place] [phone] [place] * Hemoglobin A1C (08/26/2007 3:30 AM CDT) HEMOGLOBIN A1C 6.9 % [place] Comment: NONDIABETIC: 4.4-6.0% VERY GOOD CONTROL: <7.0% SUBOPTIMAL CONTROL: 7.1-8.0% POOR CONTROL: >8.0% Specimen Performing Organization Address City/[facility] Ph one Number [facility] [id number] [place] [phone] [place] * ABORH Type (08/26/2007 3:30 AM CDT) ABORH Type A POS [facility] Specimen Performing Organization Address [facility] Ph one Number [id number] [id number] [place] [phone] [place] * Retype Patient ABORH (08/26/2007 3:30 AM CDT) ABORH Type A POS [place] RETYPE SAME CONFIRMD [place] SAMPLE Specimen Performing Organization Address [facility] one Number [facility] [phone] [place] [phone] [place] * Antibody Screen (08/26/2007 3:30 AM CDT) Antibody Screen NEGATIVE [place] Specimen Performing Organization Address [facility] one Number [facility] [phone] [place] [phone] [place] * XR Chest 2 views (PA and lateral) (08/25/2007 7:13 PM CDT) Specimen Narrative Performed At [facility] Patient: CARL CHILDERS [facility] Rec#: [id number] Sex: M : 1935 Armando#: [id number] Location: [place] [address] Check-in#: [id number] Procedure Requested: [id number] DX CHEST 2 V IEWS Reason For Exam: PRE OP EVALUATIO N Exam Ordered: 08/25/2007 165 5 Exam Date/Time: 08/25/20071912 Check-in Date/Time: 08/25/20071655 AttendinKIANA CARBONE RequestinKIANA MENDEZ Referrin KEISHA, REFERRING Primary Care: These images and this report have been reviewed and edited by the Staff Radiologist. DX CHEST 2 VIEWS Aug 25, 2007 7:13:00 PM Reason for exam: PRE OP EVALUATION Comparison Study: None. Technique: Two view chest Findings: Overlying arms obscure the anterior lat eral apices. No pleural effusion, pulmonary consolid ation, or pneumothorax. The cardiomediastinal silhouette is nor mal. The pulmonary vasculature is within normal limits. Mild thoracic spondylosis. Signed (Authenticated, Released) Date-T meghan: 08/26/2007 09 Information And Referral Director- BEBO TRUJILLO M.D., Staff Radiologist Dictated By- MAN LARSEN D.O., Res ident Staff Physician- BEBO TRUJILLO M.D., Staff Radiologist Authenticated By- BEBO TRUJILLO M.D., Staff Radiologist Procedure Note Interface, Rad Conversion - 05/06/2013 3:13 PM RN REHAB REPORT Patient: CARL CHILDERS [facility] Rec#: [id number] Sex: M : 1935 Armando#: [id number] Location: [place] [address] Check-in#: [id number] Procedure Requested: [id number] DX CHEST 2 VIEWS Reason For Exam: PRE OP EVALUATION Exam Ordered: 08/25/20071654 Exam Date/Time: 08/25/20071912 Check-in Date/Time: 08/25/20071655 AttendinKIANA CARBONE RequestinKIANA MCCLURE Referrin KEISHA REFERRING Primary Care: These images and this report have been reviewed and edited by the Staff Radiologist. DX CHEST 2 VIEWS Aug 25, 2007 7:13:00 PM Reason for exam: PRE OP EVALUATION Comparison Study: None. Technique: Two view chest Findings: Overlying arms obscure the anterior lateral apices. No pleural effusion, pulmonary consolidation, or pneumothorax. The cardiomediastinal silhouette is normal. The pulmonary vasculature is within normal limits. Mild thoracic spondylosis. Signed (Authenticated, Released) Date-Time: 08/26/2007 09 Information And Referral Director- BEBO TRUJILLO M.D., Staff Radiologist Dictated By- MAN LARSEN D.O., Resident Staff Physician- BEBO TRUJILLO M.D., Staff Radiologist Authenticated By- BEBO TRUJILLO M.D., Staff Radiologist Performing Organization Address City/State/[facility] Ph one Number [email or web address] * Invasive Cardiology Report (08/25/2007 11:01 AM CDT) Specimen [place] [address] Complete Report Name:CARL CHILDERS : 1935 Age: 72 years Gender: Male SSN: [id number] Study date: 08/25/2007 CPI number: [id number] CV Cath number: [id number] INDICATIONS: Coronary artery disease: a bnormal stress test. PROCEDURES PERFORMED -- Left coronary angiography. -- Right coronary angiography. PROCEDURE: The risks, benefits and alte rnatives of the procedure and conscious sedation were reviewed with the patient and informed consent was obtained. The patient was brought to the cardiac labor arbitrator hearing office and placed on the table. The planned access sites were prepped and d raped in the usual sterile fashion. -- Right femoral artery access. The a ccess site was infiltrated with local anesthetic. The vessel was accessed usi ng the modified Seldinger technique, a wire was threaded into the vessel, and a sheath was advanced over the wire into the vessel. -- Left coronary artery angiography. A JL4 catheter was advanced to the aorta and positioned in the vessel ostium und er fluoroscopic guidance. Angiography was performed in multiple projections u sing hand-injection of contrast. -- Right coronary artery angiography. A JR4 catheter was advanced to the aorta and positioned in the vessel ostium und er fluoroscopic guidance. Angiography was performed in multiple projections u sing hand-injection of contrast. PROCEDURAL MEDICATIONS/DATA: There were no complications. TIMING: Test started at 13:17. HEMOSTASIS: The sheath was re moved. Hemostasis was obtained using a closure device ( Angioseal). MEDICATION S GIVEN: Diazepam, 5 mg, IV, at 13:23. Fentanyl, 50 mcg, IV, at 13:24. Nitrogl ycerin, 200 mcg intracoronary, at 13:28. 2% Lidocaine, 10 ml subcutaneously, at 13:23. CONTRAST GIVEN: Visipaque 100 ml. RADIATION EXPOSURE: Fluoroscopy time: 4 min. CORONARY ANGIOGRAPHY: The coronary circ ulation is right dominant. Left main: Angiography showed minor luminal irregu larities. Mid LAD: There was a 80 % stenosis. 1st diagonal: There was a 70 % stenosis. Mid circumflex: There was a 70 % stenosis. 1st obtuse marginal: The re was a 80 % stenosis. Proximal RCA: There was a 80 % stenosis. Mid RCA: The re was a 60 % stenosis. Distal RCA: There was a 80 % stenosis. Right PDA: T here was a 90 % stenosis. SUMMARY -- Coronary angiography: -- Mid LAD: There was a 80 % stenosis . -- 1st diagonal: There was a 70 % len nosis. -- Mid circumflex: There was a 70 % s tenosis. -- 1st obtuse marginal: There was a 8 0 % stenosis. -- Proximal RCA: There was a 80 % len nosis. -- Mid RCA: There was a 60 % stenosis . -- Distal RCA: There was a 80 % steno sis. -- Right PDA: There was a 90 % stenos is. RECOMMENDATIONS -- Consultation be obtained for coron juan david artery bypass grafting. Authenticated by Gildardo Carrero M.D. Signed 08/25/2007 13:52:57 Hemodynamic tables Pressures: Baseline Pressures: - HR: 62 Pressures: - Rhythm: Pressures: -- Aortic Pressure (S/D/M) : 100/58/87 Outputs: Baseline Outputs: -- CALCULATIONS: [age] Outputs: -- CALCULATIONS: Body Surfac e Area: 2.11 Outputs: -- CALCULATIONS: Height in c m: 170.00 Outputs: -- CALCULATIONS: Sex: Male Outputs: -- CALCULATIONS: Weight in k .80 Outputs: -- OUTPUTS: O2 consumption: 264.13 Outputs: -- OUTPUTS: Vo2 Indexed: 125 .00 Procedure Note Interface, Rad Conversion - 05/15/2013 3:18 PM CDT REPORT [address] [address] Complete Report Name:CARL CHILDERS : 1935 Age: 72 years Gender: Male SSN: [id number] Study date: 08/25/2007 CPI number: [id number] CV Cath number: [id number] INDICATIONS: Coronary artery disease: abnormal stress test. PROCEDURES PERFORMED -- Left coronary angiography. -- Right coronary angiography. PROCEDURE: The risks, benefits and alternatives of the procedure and conscious sedation were reviewed with the patient and informed consent was obtained. The patient was brought to the cardiac labor arbitrator hearing office and placed on the table. The planned access sites were prepped and draped in the usual sterile fashion. -- Right femoral artery access. The acc ess site was infiltrated with local anesthetic. The vessel was accessed using the modified Seldinger technique, a wire was threaded into the vessel, and a sheath was advanced over the wire into the vessel. -- Left coronary artery angiography. A JL4 catheter was advanced to the aorta and positioned in the vessel ostium under fluoroscopic guidance. Angiography was performed in multiple projections using hand-injection of contrast. -- Right coronary artery angiography. A JR4 catheter was advanced to the aorta and positioned in the vessel ostium under fluoroscopic guidance. Angiography was performed in multiple projections using hand-injection of contrast. PROCEDURAL MEDICATIONS/DATA: There were no complications. TIMING: Test started at 13:17. HEMOSTASIS: The sheath was removed. Hemostasis was obtained using a closure device ( Angioseal). MEDICATIONS GIVEN: Diazepam, 5 mg, IV, at 13:23. Fentanyl, 50 mcg, IV, at 13:24. Nitroglycerin, 200 mcg intracoronary, at 13:28. 2% Lidocaine, 10 ml subcutaneously, at 1 3:23. CONTRAST GIVEN: Visipaque 100 ml. RADIATION EXPOSURE: Fluoroscopy time: 4 min. CORONARY ANGIOGRAPHY: The coronary circulation is right dominant. Left main: Angiography showed minor luminal irregularities. Mid LAD: There was a 80 % stenosis. 1st diagonal: There was a 70 % stenosis. Mid circumflex: There was a 70 % stenosis. 1st obtuse marginal: Ther e was a 80 % stenosis. Proximal RCA: There was a 80 % stenosis. Mid RCA: There was a 60 % stenosis. Distal RCA: There was a 80 % stenosis. Right PDA: There was a 90 % stenosis. SUMMARY -- Coronary angiography: -- Mid LAD: There was a 80 % stenosis. -- 1st diagonal: There was a 70 % steno sis. -- Mid circumflex: There was a 70 % len nosis. -- 1st obtuse marginal: There was a 80 % stenosis. -- Proximal RCA: There was a 80 % steno sis. -- Mid RCA: There was a 60 % stenosis. -- Distal RCA: There was a 80 % stenosi s. -- Right PDA: There was a 90 % stenosis . RECOMMENDATIONS -- Consultation be obtained for coronar y artery bypass grafting. Authenticated by Gildardo Carrero M.D. Signed 08/25/2007 13:52:57 Hemodynamic tables Pressures: Baseline Pressures: - HR: 62 Pressures: - Rhythm: Pressures: -- Aortic Pressure (S/D/M): 100/58/87 Outputs: Baseline Outputs: -- CALCULATIONS: [age] Outputs: -- CALCULATIONS: Body Surface Area: 2.11 Outputs: -- CALCULATIONS: Height in cm: 170.00 Outputs: -- CALCULATIONS: Sex: Male Outputs: -- CALCULATIONS: Weight in k.80 Outputs: -- OUTPUTS: O2 consumption: 264.13 Outputs: -- OUTPUTS: Vo2 Indexed: 125.00 Performing Organization Address City/State/Zipcode Ph one Number [facility] [place] [place] [facility] [address] [place] [address] * Renal Panel (08/24/2007 7:27 PM CDT) Sodium 140 134 - 144 MEQ/L [place] Potassium 4.3 3.5 - 5.1 MEQ/L [place] Chloride 107 101 - 111 MEQ/L [place] Carbon Dioxide 27 23 - 32 MEQ/L [place] Creatinine 1.2 0.9 - 1.3 MG/DL [place] Blood Urea 23 8 - 26 MG/DL [place] Nitrogen Glucose 98 65 - 100 MG/DL [place] Anion Gap 6 3 - 15 [place] Phosphorus 3.1 2.5 - 4.5 MG/DL [place] Albumin 4.1 3.5 - 5.0 G/DL [place] Calcium 9.5 8.8 - 10.5 MG/DL [place] Specimen Performing Organization Address City/[facility] [place] one Number [facility] [address] [place], [place] [address] [place] * GFR (08/24/2007 7:27 PM CDT) eGFR Male AA 76 [place] Comment: Chronic Kidney Disease less than 60 ml/min/1.73 sq.m Kidney failure less than 15 ml/min/1.73 sq.m Specimen Performing Organization Address [facility] Ph one Number [facility] [address] [place], [place] [address] [place] * GFR NON- (08/24/2007 7:27 PM CDT) eGFR Male 63 [place] Non-AA Comment: Chronic Kidney Disease less than 60 ml/min/1.73 sq.m Kidney failure less than 15 ml/min/1.73 sq.m Specimen Performing Organization Address [facility] Ph one Number [facility] [address] [place], [place] [address] [place] documented in this encounter Visit Diagnoses Diagnosis Coronary atherosclerosis of [place] abilio nary artery documented in this encounter
--- OUTSIDE RECORDS SUMMARY | 2019-09-14 20:47 | XMS REPORT | Encounter Summary ---
Author Author [facility] Organization [facility] Address Unknown Phone Unavailable Care Team Providers Care Stencil Printer Name Role Phone Charmaine Black PCP Encounter Details Care Team Description Date Type Department Tim Tate MD [address] [facility] [address] [place] [address] [phone] 08/24/2007 [facility] [...]
--- OUTSIDE RECORDS SUMMARY | 2019-09-14 20:47 | XMS REPORT | Encounter Summary ---
Author Author [facility] Organization [facility] Address Unknown Phone Unavailable Care Team Providers Care Clerk Operator Name Role Phone Charmaine Black PCP Encounter Details Care Team Description Date Type Department Benjie Palomino MD No Forwarding Address 02/21/2007 [facility]IC CLINI C Visit [...]
--- OUTSIDE RECORDS SUMMARY | 2019-09-14 20:47 | XMS REPORT | Encounter Summary ---
Author Author [facility] Organization [facility] Address Unknown Phone Unavailable Care Team Providers Care Jointer Operator Name Role Phone Charmaine Black PCP Encounter Details Care Team Description Date Type Department 02/13/2007 [facility] Visit Social History Date [...]
--- OUTSIDE RECORDS SUMMARY | 2019-09-14 20:47 | XMS REPORT | Encounter Summary ---
Author Author [facility] Organization [facility] Address Unknown Phone Unavailable Care Team Providers Care Jigger Crown Pouncing Machine Operator Name Role Phone Charmaine Black PCP Encounter Details Care Team Description Date Type Department Olman Holloway MD [address] [facility] [address] [place] [address] [phone] 12/30/2006 [facility] [...]
--- OUTSIDE RECORDS SUMMARY | 2019-09-14 20:47 | XMS REPORT | Encounter Summary ---
Author Author [facility] Organization [facility] Address Unknown Phone Unavailable Care Team Providers Care President & Founder Name Role Phone Charmaine Black PCP Encounter Details Care Team Description Date Type Department Benjie Palomino MD No Forwarding Address 12/20/2006 [facility] HISTORIC CLINI C Visit Social [...]
--- OUTSIDE RECORDS SUMMARY | 2019-09-14 20:47 | XMS REPORT | Encounter Summary ---
Author Author [facility] Organization [facility] Address Unknown Phone Unavailable Care Team Providers Care Float Tender Name Role Phone Charmaine Black PCP Encounter Details Care Team Description Date Type Department Richard Freeman MD [address] [facility] [address] [place] [address] [phone] 02/10/2007 [facility] [...]
--- OUTSIDE RECORDS SUMMARY | 2019-09-14 20:47 | XMS REPORT | Encounter Summary ---
Author Author [facility] Organization [facility] Address Unknown Phone Unavailable Care Team Providers Care Harvest Worker Field Crop Name Role Phone Charmaine Black PCP Encounter Details Care Team Description Date Type Department Tim Tate MD [address] [facility] [address] [place] [address] [phone] 08/25/2007 [facility] [...]
--- OUTSIDE RECORDS SUMMARY | 2019-09-14 20:47 | XMS REPORT | Encounter Summary ---
Author Author [facility] Organization [facility] Address Unknown Phone Unavailable Care Team Providers Care Field Reporter Name Role Phone Charmaine Black PCP Encounter Details Care Team Description Date Type Department [facility] Provider, MD Luc 12/30/2006 [facility] Result Social [...] Name Priority Date/Time Associated Diag nosis CV CT HISTORICAL Routine 12/30/2006 documented in this encounter Results * CV CT historical (12/30/2006) Specimen Narrative Performed At Procedure Category: CTA NEXTGEN Procedure: CT OverRead Procedure Summary: 1. Nonobstructive ch olelithiasis. 2. Moderate degeneration in the lumbar spine.3. Small effusions in the knees. 4. Mild diffuse thickening of the urinary bladder wall may be due to chronic obstruction or cystitis. Procedure Note Interface, Rad Conversion - 09/25/2014 10:00 AM CDT Procedure Category: CTA Procedure: CT OverRead Procedure Summary: 1. Nonobstructive cholelithiasis. 2. Moderate degeneration in the lumbar spine.3. Small effusions in the knees. 4. Mild diffuse thickening of the urinary bladder wall may be due to chronic obstruction or cystitis. Performing Organization Address City/State/Zipcode Ph one Number [facility] documented in this encounter Visit Diagnoses Not on filedocumented in this encounter
--- OUTSIDE RECORDS SUMMARY | 2019-09-14 20:47 | XMS REPORT | Encounter Summary ---
Author Author [facility] Organization [facility] Address Unknown Phone Unavailable Care Team Providers Care Plug Shaper Hand Name Role Phone Charmaine Black PCP Encounter Details Care Team Description Date Type Department Benjie Palomino MD No Forwarding Address 02/07/2007 [facility] [...]
--- OUTSIDE RECORDS SUMMARY | 2019-09-14 20:47 | XMS REPORT | Encounter Summary ---
Author Author [facility] Organization [facility] Address Unknown Phone Unavailable Care Team Providers Care Primary Grade Teacher Name Role Phone Fco Blackeen PCP Encounter Details Care Team Description Date Type Department [facility] ProviderLuc MD 08/24/2007 [facility] Result Social [...] Diag nosis CV US RENAL HISTORICAL Routine 08/24/2007 documented in this encounter Results * CV US Renal historical (08/24/2007) Specimen Narrative Performed At Procedure Category: ECHO NEXTGEN Procedure: Renal Duplex Procedure Summary: 1. Normal velocities in both renal arteries with no evidence for a significant stenosis. 2. Both kidneys are equal in size. Procedure Note Interface, Rad Conversion - 09/25/2014 8:27 AM CDT Procedure Category: ECHO Procedure: Renal Duplex Procedure Summary: 1. Normal velocities in both renal arteries with no evidence for a significant stenosis. 2. Both kidneys are equal in size. Performing Organization Address City/State/Zipcode Ph one Number [facility] documented in this encounter Visit Diagnoses Not on filedocumented in this encounter
--- OUTSIDE RECORDS SUMMARY | 2019-09-14 20:47 | XMS REPORT | Encounter Summary ---
Author Author [facility] Organization [facility] Address Unknown Phone Unavailable Care Team Providers Care Ecology Teacher Name Role Phone Charmaine Black PCP Encounter Details Care Team Description Date Type Department [facility] ProviderLuc MD 12/30/2006 [facility] HISTORIC CL[facility] C Result Social History [...] Diag nosis CV US CAROTID DUPLEX Routine 12/30/2006 HISTORICAL documented in this encounter Results * CV US Carotid Duplex historical (12/30/2006) Specimen Narrative Performed At Procedure Category: ECHO NEXTGEN Procedure: Carotid Duplex Procedure Summary: 1. Goqlxbbi-jq-udr ere atherosclerotic plaque in both common and internal carotid arteries with no evidence for a hemodynamically significant stenosis. 2. There is a >50% stenosis in the right ECA. 3. Both vertebral arteries are patent with antegrade flow. Procedure Note Interface, Rad Conversion - 09/25/2014 10:19 AM CDT Procedure Category: ECHO Procedure: Carotid Duplex Procedure Summary: 1. Wtmlybdg-xz-gsmljz atherosclerotic plaque in both common and internal carotid arteries with no evidence for a hemodynamically significant stenosis. 2. There is a >50% stenosis in the rig ht ECA. 3. Both vertebral arteries are patent w ith antegrade flow. Performing Organization Address City/State/Zipcode Ph one Number [facility] documented in this encounter Visit Diagnoses Not on filedocumented in this encounter
--- OUTSIDE RECORDS SUMMARY | 2019-09-14 20:47 | XMS REPORT | Encounter Summary ---
Author Author [facility] Organization [facility] Address Unknown Phone Unavailable Care Team Providers Care Intertype Operator Name Role Phone Charmaine Black PCP Encounter Details Care Team Description Date Type Department Benjie Palomino MD No Forwarding Address 12/30/2006 [facility] [...] Signs Reading Time Taken Comments Vital Sign 130/84 12/30/2006 12:41 PM CDT Blood Pressure 68 12/30/2006 12:41 PM CDT Pulse - - Temperature - - Respiratory Rate - - Oxygen Saturation - - Inhaled Oxygen Concentration 100.7 kg (222 lb) 12/30/2006 12:41 PM CDT obese Weight 170.2 cm (5' 7") 12/30/2006 12:41 PM CDT Height 34.77 12/30/2006 12:41 PM CDT Body Mass Index documented in this encounter Progress Notes * Benjie Palomino MD - 12/30/2006 12:13 PM CDT [place] [facility] [address] [place] [phone] December 30, 2006 CHARMAINE BLACK MD [address] [facility] [place] [address] [place] [address] RE: CARL CHILDERS : 1935 Chart #: [id number] Dear Dr. BLACK: I had the pleasure of seeing CARL CHILDERS in the office today for CONS. He is 71 years of age and presents with the following chief complaints: Peripheral vascu lar disease, renal artery stenosis, and cough. HPI: As you know, he has diffuse vascular disease. I was asked to see him in consult ation regarding his peripheral arterial disease as requested by Dr. Tim hernandez. He underwent aortoiliac duplex because of a family history of abdominal aor tic aneurysm. This showed no abdominal aortic aneurysm; however, there was francisco re disease in the abdominal aorta. In the distal aorta, there was an increase i n velocity suggesting a stenosis as well as extending into the right common reza c artery. Ankle-brachial indices today do confirm underlying peripheral arteria l disease mildly abnormal at rest on the right and moderately elevated post-exer cise bilaterally. He is walking three miles a day and states that he actually h as had improvement in his claudication symptoms that in retrospect he clearly chatman d, but he now has nonlifestyle limiting claudication symptoms in bilateral calve s that are very mild. CT angiography today though also did confirm a severe rig ht renal artery stenosis of about 90%, and these velocities were noted to be inc reased incidentally on the aortoiliac duplex imaging. He has normal creatinine. His blood pressure has been a little bit more difficult to control lately angel herrera. I have had a long discussion with him and his regarding his options. 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 Problem List: 07/10/2004 CAD MPI Inferior wall ischemia. LVEF 51%. Image appearances are similar to those of July 22, 2003. DM 05/22/2004 Dyslipidemia 07/10/2004 EF MPI Rest EF: 51, Stress EF: 51 Obesity 11/17/2006 PVD Aorto-iliac duplex 1. Moderate atherosclerosis within the abdomi nal aorta. 2. Normal abdominal aorta dimensions. 3. Increased flow velocities in the distal aorta (2.9 m/s) consistent with a significant stenosis. 4. Increased flow velocities in the right common iliac consistent with a 50-75% stenosis. 5. Increased flow velocity (3.6 m/s) is incidentally noted in the right renal artery. Past Medical History: Anxiety Cholelithiasis Obesity Osteoporosis Perforated diverticulum Osteoarthritis Osteopenia Erectile Dysfunction Diverticulosis Colon polyps Gallbladder dysfunction BPH 2002 Squamous cell CA 2003 Sleep Apnea on CPAP Past Surgical History: Surgery for Squamous Cell cancer 1998 Appendectomy 1998 Colon resection 2001 Skin Cancer Removal Current Medications: Zestril 40mg Take one tablet by mouth daily Toprol XL 50mg Take one tablet by mouth daily Vytorin 10/40 Mg Take 1/2 tablet by mouth daily Fish Oil Take one tablet by mouth two times per day Multivitamin Take one tablet by mouth daily Caltrate-600 Plus 600mg-400 Take one tablet by mouth two times per day Ecotrin 81mg Take one tablet by mouth daily Zoloft 50mg Take one tablet by mouth daily Pepcid 20mg Take one tablet by mouth daily Levitra 20 Mg PRN Allergies: No Known Allergies Family History: Brother Diagnosed with HTN. Mother Cause of was CVA at age 82. Brother Cause of was CRF at age 67. Father Cause of was [place] at age 62. Brother Cause of was CABG at age 71. Sister Cause of was CA at age 86. Social History: MR. CHILDERS is and retired. The patient exercises on a regular basis. The patient is a former smoker who smoked for 25.00 years but quit smoking in 1977. Patient drinks 1 beer weekly. There is no history of drug abuse. There are no advance directives. A review of the patient's dietary patterns indicates he a dheres to a low fat, low cholesterol diet. ROS: 12-point review of systems negative with the following exceptions: Constitutional: Cough Pulmonary: Sleep apnea Cardiovascular: Pt has cough ? lisinopril Musculoskeletal/Dermatology: Arthralgias Physical Exam: Vital Signs The patient is 5ft 7in tall, and weighs 222lbs. The BMI is 34.80. B lood pressure taken in the left arm is 130/84 mmHg in the sitting position. The pulse is 68. Const The patient is an obese male. HEENT The patient's neck veins are flat. Pulm Lungs are clear to auscultation. Cardiac Regular rate and rhythm. Normal S1 and S2. No murmur, rub, or gallop pre sent. Abd The patient has no abdominal tenderness to palpation. The abdominal aorta i s not palpable. An abdominal aortic bruit is present. Vasc There are right and left carotid bruits present. The right and left caroti d upstrokes are normal. There are normal right and left femoral pulses. The right and lef t popliteal pulses are normal. EXT The extremities are warm to touch. There is no edema noted. Skin The skin is warm and dry. Neuro/Psych The patient is alert and oriented to time, person and place. The pa nilda's mood is normal. No aphasia is apparent by exam. CORNELIUS: Resting: Left: 1.04 Right: .89 Exercise: Left: .67 Right: .66 Interpretation: Results show mildly abnormal right ankle-brachial index and norm al left ankle-brachial index at rest with moderately abnormal bilateral ankle-br achial indices post exercise. Most Recent Lipids Available for Review: Date Collected Fasting Chol HDL LDL Trig Ratio Glucose 09/09/2006 yes 130 32 48 252 4.06 N/A Impression and Plan: 1. Renal artery stenosis. He has high-grade right renal artery stenosis. His c reatinine is normal, but his blood pressure has been more difficult to control a nd labile recently. I have recommended that he try to achieve a blood pressure of 130/80 or less. Also he will initiate the hydrochlorothiazide that you recom mended. I have recommended that he proceed with angiography with an attempt at percutaneous revascularization because this is so severely stenosed. However, trevon tao will consider his options because his renal function at this point at least me asured by creatinine level is acceptable and his blood pressure may be able to b e controlled conservatively. He will return to see me in two months to re-discu ss his options and consider renal angioplasty and stenting. I have explained to them the risk and benefits. They voice understanding and wish to proceed. 2. Peripheral arterial disease. He does have abnormal ABIs post-exercise. He h as mild nonlimiting calf claudication symptoms bilaterally, able to walk three m cece, and he will continue with aggressive risk factor modification and follow t his conservatively. 3. Coronary artery disease with inferior wall ischemia and preserved left ventri cular systolic function. He will continue with aggressive risk factor modificat ion and undergo myocardial perfusion imaging in a year when he follows up with Randy Tate. 4. Dyslipidemia. I would recommend an LDL less than 70 with an HDL greater than 45, triglycerides less than 150 and he is on combination medical therapy for th is. 5. Sleep apnea. Follow up: Benjie Palomino M.D. 2 Months Thank you for allowing me to participate in CARL CHILDERS's care. If I can be of any further assistance, please do not hesitate to contact me. Sincerely, Benjie ALDANA:allyssa:catarina:chanda F: 01/12/2007 4:15 pm documented in this encounter Plan of Treatment Not on filedocumented as of this encounter Visit Diagnoses Not on filedocumented in this encounter
--- OUTSIDE RECORDS SUMMARY | 2019-09-14 20:47 | XMS REPORT | Encounter Summary ---
Author Author [facility] Organization [facility] Address Unknown Phone Unavailable Care Team Providers Care Electron Beam Photo Mask Technician Name Role Phone Ananth Black PCP Encounter Details Care Team Description Date Type Department Benjie Palomino MD No Forwarding Address 05/22/2007 [facility] - Hist [facility] HISTORIC CLINI C Visit Social [...] Signs Reading Time Taken Comments Vital Sign 134/72 05/22/2007 10:31 AM CDT Blood Pressure 60 05/22/2007 10:31 AM CDT Pulse - - Temperature - - Respiratory Rate - - Oxygen Saturation - - Inhaled Oxygen Concentration 99.8 kg (220 lb) 05/22/2007 10:31 AM CDT obese Weight 170.2 cm (5' 7") 05/22/2007 10:31 AM CDT Height 34.46 05/22/2007 10:31 AM CDT Body Mass Index documented in this encounter Progress Notes * Benjie Palomino MD - 05/22/2007 10:17 AM CDT [place] [facility] [address] [place] [id number] [phone] [phone] May 22, 2007 ANANTH BLACK MD [address] [facility] [place] [address] RE: CARL CHILDERS : 1935 Chart #: [id number] Dear Dr. BLACK: I had the pleasure of seeing CARL CHILDERS in the office today. He is 72 years of age and presents with the following chief complaints: hypertension and peripher al vascular disease. HPI: As you know, he has underlying renal artery stenosis. 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 He does plan to see Dr. Melissa regarding his renal di sease. His creatinine did improve from 1.4 to 1.3, which actually is within the normal range in the laboratory values that he brings today. His BUN was slight ly elevated and could be due to the HCT portion of his Benicar/HCT therapy. He does have underlying coronary artery disease as manifest by an abnormal myocardi al perfusion imaging in 2004 with preserved left ventricular systolic function a nd inferior wall ischemia. He denies any anginal symptoms. He has been active and able to walk 3 miles in just over an hour and denies any claudication sympto ms despite evidence of underlying peripheral arterial disease. He also has martínez tid artery disease with moderate to severe atherosclerotic plaquing and will hav e him undergo duplex imaging later this year to assess for progression. Problem List: 07/10/2004 CAD MPI Inferior wall [...] arter y. 12/30/2006 PVD Carotid Duplex 1. [id number] atherosclerotic plaque in b oth common and [...] renal stent -Right Renal Artery from 99% tp 0% post 5.5 x 18mm Herculink Plus Stent post-dilated with a 6.5 mm balloo n secondary to marked poststenotic dilatation. 05/22/2007 PVD [...] 1998 Skin Cancer Removal 2001 Current Medications: Fish Oil Take two capsules by mouth [...] at age 66. Father Cause of was [place] at age 62. Brother Cause of was CABG at age 71. Sister Cause of was [place] at age 86. Social History: Marital Status: Children: 3 Occupation: Retired Advance Directives: There are no advance directives. Diet: Low fat/chol Exercise: Regular. Walk 5-6 times per week for one hour Smoking: Former smoker of 2.00 packs per day for 25.00 years. Quit in 1977. Alcohol: Currently drinks 1 of beer weekly Caffeine: Caffeine use: 2 cups of coffee ROS: 12-point review of systems is negative with the following exceptions: Pulmonary: Sleep apnea Cardiovascular: Lightheadedness Musculoskeletal/Dermatology: Arthralgias Physical Exam: Vital Signs The patient is 5 feet 7 inches tall and weighs 220 pounds. The BMI is 34.50. Blood pressure taken in the left arm is 134/72 mmHg in the sitting position. T he pulse is 60. The rhythm is regular. [...] normal. No aphasia is apparent by exam. Most Recent Lipids Available for Review: Date Collected Fasting Chol HDL LDL Trig Ratio Glucose 05/03/2007 Yes 133 33 61 197 4.03 110 Impression and Plan: 1. Renal artery stenosis. He is status post TEACHER ASST and stent to the right renal ar ashley ultimately post dilated with 6.5 mm balloon secondary to marked post stenot ic dilatation. He has had marked improvement in his blood pressure control. He plans to see Dr. Melissa to review his medical therapy as well. 2. Coronary artery disease with abnormal myocardial perfusion imaging in 2004. He will continue with aggressive risk factor modification. I would recommend an LDL less than 70 with an HDL greater than 45, triglycerides less than 150. He will undergo myocardial perfusion imaging in a few months time when she returns for his renal duplex to assess for restenosis within the right renal artery. 3. Diabetes mellitus. 4. Dyslipidemia on Vytorin therapy. We have discussed this today, and I have re commended he continue with his combination therapy for now. 5. Carotid artery disease. He has moderate to severe atherosclerotic plaquing b y duplex imaging, and he will undergo duplex imaging later this year to assess f or progression. Follow up: Benjie Palomino M.D. 3 Months Thank you for allowing me to participate in CARL CHILDERS's care. If I can be of any further assistance, please do not hesitate to contact me. Sincerely, Benjie HUNTD:allyssa:aviva cc: JUAN MELISSA MD F: 05/25/2007 documented in this encounter Plan of Treatment Not on filedocumented as of this encounter Visit Diagnoses Not on filedocumented in this encounter
--- OUTSIDE RECORDS SUMMARY | 2019-09-14 20:47 | XMS REPORT | Encounter Summary ---
Author Author [facility] Organization [facility] Address Unknown Phone Unavailable Care Team Providers Care Older Worker Specialist Name Role Phone Fco Blackeen PCP Encounter Details Care Team Description Date Type Department [facility] ProviderLuc MD 08/24/2007 [facility]Hist [facility] HISTORIC CLINI C Result Social History [...] Priority Date/Time Associated Diag nosis CV MPI SPECT HISTORICAL Routine 08/24/2007 documented in this encounter Results * CV MPI SPECT historical (08/24/2007) Specimen Narrative Performed At Procedure Category: NUC NEXTGEN Procedure: Tetrofosmin Exercise r/s Procedure Summary: Mild to moderate isc hemia in the distribution of the left anterior descending coronary artery and right coronary artery occurring at a low workload.Markedly positive ST segment c hange at low workload.Normal left ventricular systolic function. LVEF at rest is 71%.<p>1. Pat ient received sublingual nitroglycerin early in the recovery period because of chest pain symptoms. <p>2. Test results were verbally commun icated on date of dictation at 1525 hours. Procedure Note Interface, Rad Conversion - 09/25/2014 8:28 AM CDT Procedure Category: NUC Procedure: Tetrofosmin Exercise r/s Procedure Summary: Mild to moderate ischemia in the distribution of the left anterior descending coronary artery and right coronary artery occurring at a low workload.Markedly positive ST segment change at low workload.Normal left ventricular systolic function. LVEF at rest is 71%.<p>1. Patient received sublingual nitroglycerin early in the recovery period because of chest pain symptoms. <p>2. Test results were verbally communicated on date of dictation at 1525 hours. Performing Organization Address City/State/Zipcode Ph one Number NEXTGEN documented in this encounter Visit Diagnoses Not on filedocumented in this encounter
--- OUTSIDE RECORDS SUMMARY | 2019-09-14 20:47 | XMS REPORT | Encounter Summary ---
Author Author [facility] Organization [facility] Address Unknown Phone Unavailable Care Team Providers Care Supply Chain Technician Name Role Phone Hailey Blackhleen PCP Encounter Details Care Team Description Date Type Department [facility] ProviderLuc MD 05/22/2007 [facility] Result Social [...] Diag nosis CV US RENAL HISTORICAL Routine 05/22/2007 documented in this encounter Results * CV US Renal historical (05/22/2007) Specimen Narrative Performed At Procedure Category: ECHO NEXTGEN Procedure: Renal Duplex Procedure Summary: 1. Normal velocities in both renal arteries with no evidence for a significant stenosis. 2. Both kidneys are equal in size. 3. A cyst, measuring 1.1cm x 1.1cm, i s present in the left kidney. Procedure Note Interface, Rad Conversion - 09/25/2014 9:13 AM CDT Procedure Category: ECHO Procedure: Renal Duplex Procedure Summary: 1. Normal velocities in both renal arteries with no evidence for a significant stenosis. 2. Both kidneys are equal in size. 3. A cyst, measuring 1.1cm x 1.1cm, is present in the left kidney. Performing Organization Address City/State/Zipcode Ph one Number NEXTGEN documented in this encounter Visit Diagnoses Not on filedocumented in this encounter
--- OUTSIDE RECORDS SUMMARY | 2019-09-14 20:47 | XMS REPORT | Encounter Summary ---
Author Author [facility] Organization [facility] Address Unknown Phone Unavailable Care Team Providers Care Intelligence Manager Name Role Phone Charmaine Black PCP Encounter Details Care Team Description Date Type Department [facility] Provider, MD Luc 02/13/2007 [facility] C Result Social History Date [...] Procedure Name Priority Date/Time Associated Diag nosis CATHETERIZATION Routine 02/13/2007 HISTORICAL documented in this encounter Results * Catheterization historical (02/13/2007) Specimen Narrative Performed At Procedure Category: PVD NEXTGEN Procedure: Renal angiography Procedure Summary: Bilateral renal sten t -Right Renal Atery from 99% tp 0% post 5.5 x 18mm Herculink Plus Stent post-di lated with a 6.5 mm balloon secondary to marked poststenotic dilatation. Procedure Note Interface, Rad Conversion - 09/24/2014 2:57 PM CDT Procedure Category: PVD Procedure: Renal angiography Procedure Summary: Bilateral renal stent -Right Renal Atery from 99% tp 0% post 5.5 x 18mm Herculink Plus Stent post-dilated with a 6.5 mm balloon secondary to marked poststenotic dilatation. Performing Organization Address City/State/Zipcode Ph one Number NEXTGEN documented in this encounter Visit Diagnoses Not on filedocumented in this encounter
--- OUTSIDE RECORDS SUMMARY | 2019-09-14 20:47 | XMS REPORT | Encounter Summary ---
Author Author [facility] Organization [facility] Address Unknown Phone Unavailable Care Team Providers Care Pipeline Maintenance Supervisor Name Role Phone Charmaine Black PCP Encounter Details Care Team Description Date Type Department [facility] ProviderLuc MD 08/24/2007 [facility]-Hist EF [facility] HISTORIC CLINI C Social History Date [...] Associated Diag nosis NUC EJECTION FRACTION Routine 08/24/2007 HISTORICAL 12:00 AM CDT documented in this encounter Results * Nuc Ejection Fraction historical (08/24/2007 12:00 AM CDT) Ejection 71Comment: Nuclear NUCMED Fraction (Adenosine-Reinjection Thallium-201) Specimen Performing Organization Address City/State/Zipcoor Ph one Number NUCMED documented in this encounter Visit Diagnoses Not on filedocumented in this encounter
--- OUTSIDE RECORDS SUMMARY | 2019-09-14 20:47 | XMS REPORT | Encounter Summary ---
Author Author [facility] Organization [facility] Address Unknown Phone Unavailable Care Team Providers Care Supervisor Production Name Role Phone Fco Blackeen PCP Encounter Details Care Team Description Date Type Department [facility] ProviderLuc MD 12/30/2006 [facility]Hist [facility] HISTORIC CLINI C Result Social History [...] Priority Date/Time Associated Diag nosis CV CT ANGIO HISTORICAL Routine 12/30/2006 documented in this encounter Results * CV CT Angio historical (12/30/2006) Specimen Narrative Performed At Procedure Category: CTA NEXTGEN Procedure: CTA Runoff Procedure Summary: 1. High-grade stenos is in the proximal segment of the right renal artery (approximately 90% diamete r reduction).2. Highly localized area of dissection or penetrating ulcer in the distal abdominal aorta at the level of the inferior mesenteric artery.3. Mild, scattered at herosclerotic disease in the iliac and femoral vessels. 4. Three-vessel runoff to the distal left and right lower extremities.5. Please see the radiology report for details of the nonvascular findings. Procedure Note Interface, Rad Conversion - 09/25/2014 10:00 AM CDT Procedure Category: CTA Procedure: CTA Runoff Procedure Summary: 1. High-grade stenosis in the proximal segment of the right renal artery (approximately 90% diameter reduction).2. Highly localized area of dissection or penetrating ulcer in the distal abdominal aorta at the level of the inferior mesenteric artery.3. Mild, scattered atherosclerotic disease in the iliac and femoral vessels. 4. Three-vessel runoff to the distal left and right lower extremities.5. Please see the radiology report for details of the nonvascular findings. Performing Organization Address City/State/Zipcode Ph one Number NEXTGEN documented in this encounter Visit Diagnoses Not on filedocumented in this encounter
--- OUTSIDE RECORDS SUMMARY | 2019-09-14 20:48 | XMS REPORT | Encounter Summary ---
Author Author [facility] Organization [facility] Address Unknown Phone Unavailable Care Team Providers Care Bundler Seasonal Greenery Name Role Phone Charmaine Black PCP Encounter Details Care Team Description Date Type Department [facility] ProviderLuc MD 11/17/2006 [facility]Hist [facility] HISTORIC CLINI C Result Social History [...] Priority Date/Time Associated Diag nosis CV US ABDOMEN HISTORICAL Routine 11/17/2006 documented in this encounter Results * CV US Abdomen historical (11/17/2006) Specimen Narrative Performed At Procedure Category: ECHO NEXTGEN Procedure: Aorto-Iliac Duplex Procedure Summary: 1. Moderate atherosc lerosis within the abdominal aorta. 2. Normal abdominal aorta dimensions. 3. Increased flow velocities in the dis alex aorta (2.9 m/s) consistent with a significant stenosis. 4. Increased flow velocities in the rig ht common iliac consistent with a 50-75% stenosis. 5. Increased flow velocity (3.6 m/s) is incidentally noted in the right renal artery. Procedure Note Interface, Rad Conversion - 09/25/2014 10:38 AM CDT Procedure Category: ECHO Procedure: Aorto-Iliac Duplex Procedure Summary: 1. Moderate atherosclerosis within the abdominal aorta. 2. Normal abdominal aorta dimensions. 3. Increased flow velocities in the dist al aorta (2.9 m/s) consistent with a significant stenosis. 4. Increased flow velocities in the righ t common iliac consistent with a 50-75% stenosis. 5. Increased flow velocity (3.6 m/s) is incidentally noted in the right renal artery. Performing Organization Address City/State/Zipcode Ph one Number NEXTGEN documented in this encounter Visit Diagnoses Not on filedocumented in this encounter
--- OUTSIDE RECORDS SUMMARY | 2019-09-14 20:48 | XMS REPORT | Encounter Summary ---
Author Author [facility] Organization [facility] Address Unknown Phone Unavailable Care Team Providers Care International Sales Representative Name Role Phone Charmaine Black PCP Encounter Details Care Team Description Date Type Department [facility] ProviderLuc MD 07/22/2003 [facility]IC [facility] C Result Social [...] Date/Time Associated Diag nosis CV MPI PET HISTORICAL Routine 07/22/2003 documented in this encounter Results * CV MPI PET historical (07/22/2003) Specimen Narrative Performed At Procedure Category: PET NEXTGEN Procedure: Rb-82 Dobutamine Stress Procedure Summary: Ischemia inferiorly and inferoseptally in the distribution probably of the RCA.Normal left ventric ular function with LVEF 60%. Procedure Note Interface, Rad Conversion - 09/25/2014 8:43 PM CDT Procedure Category: PET Procedure: Rb-82 Dobutamine Stress Procedure Summary: Ischemia inferiorly and inferoseptally in the distribution probably of the RCA.Normal left ventricular function with LVEF 60%. Performing Organization Address City/State/Zipcode Ph one Number NEXTGEN documented in this encounter Visit Diagnoses Not on filedocumented in this encounter
--- OUTSIDE RECORDS SUMMARY | 2019-09-14 20:48 | XMS REPORT | Encounter Summary ---
Author Author [facility] Organization [facility] Address Unknown Phone Unavailable Care Team Providers Care Development Vice President Name Role Phone Ananth Black PCP Encounter Details Care Team Description Date Type Department Tim Tate MD [address] [address] [phone] 07/30/2005 [facility] C [...] Signs Reading Time Taken Comments Vital Sign 130/64 07/30/2005 10:07 AM CDT Blood Pressure 48 07/30/2005 10:07 AM CDT Pulse - - Temperature 14 07/30/2005 10:07 AM CDT Respiratory Rate - - Oxygen Saturation - - Inhaled Oxygen Concentration 90.7 kg (200 lb) 07/30/2005 10:07 AM CDT Weight 170.2 cm (5' 7") 07/30/2005 10:07 AM CDT Height 31.32 07/30/2005 10:07 AM CDT Body Mass Index documented in this encounter Progress Notes * Tim Tate MD - 07/30/2005 10:58 AM CDT [place] [facility] [address] [place] [phone] July 30, 2005 ANANTH BLACK MD [address] [facility] [place] [address] RE: CARL CHILDERS : 1935 Chart #: [id number] Dear Dr. BLACK: I had the pleasure of seeing CARL CHILDERS in the office today for an annual evalu ation. He is 70 years of age and presents with the following chief complaints: coronary artery disease, dyslipidemia. HPI: He is a delightful gentleman who returns with his for a routine follow up v isit. He has a history of coronary disease. Last year he had a history of stab le exertional angina although the pattern had changed. His EF was 50% and he chatman s inferior wall ischemia. On a higher dose of beta blockers, he is currently wi thout any symptoms to suggest angina. He previously had typical exertional tanner na. He is without palpitations, syncope, or edema. He continues to walk 3 mile s a day in 55 minutes. He is also very active digging up his garden, according to his . He is following a very strict 1200 calorie diet and has lost 32 po unds in the last several months. Although he is hungry, he has the discipline t o continue this program. His lipids have improved substantially, and he is now on half his dose of Vytorin 10/40. His most recent lipids from your office on 0 07/27/05 show total cholesterol of 114, HDL 32, LDL 54, and triglycerides 142. H is fasting glucose was 111. Creatinine was 1.1, and Hgb A1c was 5.6. Despite his bradycardia, he is without any symptoms to suggest lightheadedness, dizziness, or lack of energy with activity. Problem List: 07/10/2004 CAD MPI Inferior wall ischemia.LVEF 51%.Image appearances are similar to those of July 22, 2003. DM 05/22/2004 Dyslipidemia 07/10/2004 EF MPI Rest EF: 51, Stress EF: 51 Past Medical History: Anxiety Cholelithiasis Osteoporosis Perforated diverticulum Osteoarthritis Osteopenia Erectile Dysfunction Diverticulosis Colon polyps Gallbladder dysfunction BPH 2002 Squamous cell CA 2004 Sleep Apnea on CPAP Past Surgical History: Skin Cancer Removal Colon resection Surgery for Squamous Cell cancer Appendectomy Current Medications: Vytorin 10/40 Mg Take 1/2 tablet by mouth daily Fish Oil Take one tablet by mouth two times per day Toprol XL 100mg Take one capsule by mouth daily Caltrate-600 Plus 600mg-200 Take one tablet by mouth two times per day Multivitamin Take one tablet by mouth daily Ecotrin 81mg Take one tablet by mouth daily Zoloft 50mg Take one tablet by mouth daily Pepcid 20mg Take one tablet by mouth daily Levitra 20 Mg PRN Allergies: No Known Allergies Family History: Brother Diagnosed with HTN Mother Cause of was CVA at age 82. Brother Cause of was CRF at age 67. Father Cause of was [place] at age 62. Brother Cause of was CABG at age 71. Sister Cause of was [place] at age 86. Social History: Mr. CHILDERS is and retired. The patient exercises on a regular basis. T he patient is a former smoker and has smoked for 25 years but quit smoking in . Patient drinks 1 glass of wine occasionally. There is no history of sylvie g abuse. There are no advance directives. A review of the patient's dietary pa tterns indicates that they adhere to a low fat, low cholesterol, low salt diet. ROS: ROS is positive for: : Erectile dysfunction Musculoskeletal/Dermatology: Myalgias, Arthralgias Physical Exam: Vital Signs The patient is 5ft 7in tall, and weighs 200lbs. The BMI is 31.30. B lood pressure taken in the left arm is 130/64 mmHg in the sitting position. The pulse is 48. The rhythm is regular. The respirations are 14. Const The patient is an obese male. HEENT The patient's sclerae are clear. The patient's neck veins are flat. Pulm Lungs are clear to auscultation. Cardiac Regular rate and rhythm. Normal S1 and S2. No murmur, rub, or gallop pre sent. Abd The patient has no abdominal tenderness to palpation. Vasc Distal pulses 2+ throughout with no carotid bruits noted. EXT The extremities are warm to touch. There is no edema noted. Neuro/Psych The patient is alert and oriented to time, person and place. EKG: Rhythm: Sinus bradycardia Rate: 46 Comments: otherwise normal Impression and Plan: 1. Coronary disease without any symptoms of angina. Stress test in 2004 showed EF of 50% and inferior wall ischemia. 2. Well controlled dyslipidemia and hypertension. 3. Mild glucose intolerance with improving Hgb A1c with weight loss. 4. A 30-pound weight loss. 5. Asymptomatic bradycardia. I have made no changes to his medical regimen. I did commend him on his diligen ce in weight loss which has clearly improved his risk factor as reflected in par t by his numbers and the need for lower dose of pharmacologic therapy. The stru ggle terminal make up operator will be to maintain his weight loss and not to have a yo-yo effec t with his weight over time. In the absence of symptoms, he certainly does not need a stress test this year. In fact, he may even skip the next year if he con tinues to be clinically stable. Certainly should he have recurrent angina, eith er at rest or with exertion, I did mention to him and his that we need to h ear about is promptly. Follow up: Tim Tate M.D. 1 Year Thank you for allowing me to participate in CARL CHILDERS's care. If I can be of any further assistance, please do not hesitate to contact me. Sincerely, Tim Tate M.D. DGWhit/tls F: 08/09/2005 10:35pm documented in this encounter Plan of Treatment Not on filedocumented as of this encounter Visit Diagnoses Not on filedocumented in this encounter
--- OUTSIDE RECORDS SUMMARY | 2019-09-14 20:48 | XMS REPORT | Encounter Summary ---
Author Author [facility] Organization [facility] Address Unknown Phone Unavailable Care Team Providers Care Hot Repairman Name Role Phone Charmaine Black PCP Encounter Details Care Team Description Date Type Department [facility] Provider, MD Luc 07/10/2004 [facility]-Hist EF [facility] HISTORIC CLINI C Social History Date [...] Associated Diag nosis NUC EJECTION FRACTION Routine 07/10/2004 HISTORICAL 12:00 AM CDT documented in this encounter Results * Nuc Ejection Fraction historical (07/10/2004 12:00 AM CDT) Ejection 51Comment: PET/FDG Scan NUCMED Fraction (Adenosine Tl-201) Specimen Performing Organization Address City/State/Zipcode Ph one Number NUCMED documented in this encounter Visit Diagnoses Not on filedocumented in this encounter
--- OUTSIDE RECORDS SUMMARY | 2019-09-14 20:48 | XMS REPORT | Encounter Summary ---
Author Author [facility] Organization [facility] Address Unknown Phone Unavailable Care Team Providers Care P[address] Service Name Role Phone Ananth Black PCP Encounter Details Care Team Description Date Type Department Edie Watts MD [address] [address] [phone] 12/20/2006 [facility] Social History Date Tobacco Use Types Packs/Day Years Used Never Assessed Sex Assigned at Date Recorded Not on file Industry Job Start Date Occupation Not on file Not on file Not on file Travel End Travel History Travel Start No recent travel history available. documented as of this encounter Progress Notes * Edie Watts MD - 12/20/2006 3:03 PM CDT [place] [facility] [address] [place] [id number] [phone] 12/21/2006 ANANTH BLACK MD [facility] [place] [facility] [place] [address] [place] [address] Re: CARL CHILDERS : 1935 Chart#: [id number] Dear Dr. BLACK: This is a followup note regarding CARL CHILDERS. He has completed his cardiac fili ting and I am writing to share the results with you. He had the following tests: BMP (chem 7): GLU 98, BUN 18, CREAT 1.1, NA 137, K 4.4, CHL 104, BICARB 26, AG 7 , CA 9.9, Labs remain within normal limits one week post initation of lisinopril. Continue current medical treatment. These test results along with my recommendations [...]
--- OUTSIDE RECORDS SUMMARY | 2019-09-14 20:48 | XMS REPORT | Encounter Summary ---
Author Author [facility] Organization [facility] Address Unknown Phone Unavailable Care Team Providers Care [place] Floor Service Worker Name Role Phone Charmaine Black PCP Encounter Details Care Team Description Date Type Department Edie Watts MD [address] [facility] [address] [place] [address] [phone] 07/13/2004 [facility] Visit Social [...]
--- OUTSIDE RECORDS SUMMARY | 2019-09-14 20:48 | XMS REPORT | Encounter Summary ---
Author Author [facility] Organization [facility] Address Unknown Phone Unavailable Care Team Providers Care Chef & Owner Name Role Phone Charmaine Black PCP Encounter Details Care Team Description Date Type Department Osito Taylor 07/05/2005 [facility] [...]
--- OUTSIDE RECORDS SUMMARY | 2019-09-14 20:48 | XMS REPORT ---
Author Author [employer] sports [employer] AddressReport [place] [facility] [employer] [facility] Carlotz Address [address] [place] [address] Care Team Providers Care Athletic Equipment Manager Name Role Phone GANGA GAN Unavailable GANGA GAN DO Unavailable Unavailable GANGA GAN DO Unavailable Unavailable GANGA GAN PCP EDVIN BARON, ELA Brandt Unavailable Unavailable ELA PARDO MD Unavailable Unavailable RAVEN SANDERS Unavailable Unavailable LUZ MARIA PEREZ DO Unavailable Unavailable EVIE MCKENNA Unavailable Unavailable FAIZA BARON, MAN Padilla Unavailable Unavailable CHIVO PALMA MD Unavailable Unavailable MARCUS DIETRICH APRN Unavailable Unavailable Unavailable Unavailable Unavailable Unavailable Unavailable Unavailable Unavailable Unavailable Allergies The data below is from unstructured sourcesNo known allergies.No known allergies.No known allergies.No known allergies.No known allergies. Encounters Encounter Date Encounter Type Encounter Diagnosis Care Provider Facility Start: Emergency department MARCUS DIETRICH APRN [facility] Via [facility] 09-14-2019 patient visit [facility] Start: Emergency department GANGA esquivel Via [facility] 01-01-2019 patient visit Work Phone: [place] [phone] End: 01-01-2019 Start: Emergency department MAN KENDALL MD [facility] Via 01-01-2019 patient visit [facility] ([id number]) End: 01-01-2019 Start: Patient encounter EVIE MCKENNA [facility] Via [facility] is 01-01-2019 procedure [facility] ([id number]) Start: Patient encounter GANGA GAN DO [facility] Vi a 07-14-2018 procedure [facility] ([id number]) Start: Patient encounter GANGA GAN DO [facility] Vi a 07-14-2018 procedure [facility] ([id number]) Start: Emergency department LUZ MARIA PEREZ 12-02-2017 patient visit End: 12-02-2017 Start: Patient encounter NA NA Not Availab le ([id number]) 12-02-2017 procedure Start: Emergency department LUZ MARIA PEREZ DO [facility] Via [facility] 12-02-2017 patient visit [facility] ([id number]) End: 12-02-2017 Start: Patient encounter 09-01-2017 procedure Start: Patient encounter GANGA GAN DO [facility] Vi a [facility] 09-01-2017 procedure [facility] ([id number]) Start: Emergency department KYM AGUILAR MD N ot Available ([id number]) 06-21-2017 patient visit Start: Evaluation and ELA PARDO MD [facility] Via [employer] 06-21-2017 management of [facility] inpatient ([id number]) End: 06-22-2017 Start: Patient encounter GANGA GAN DO Not Av ailable ([id number]) 05-25-2016 procedure Start: Patient encounter GANGA GAN DO [facility] Vi a [facility] 05-25-2016 procedure [facility] ([id number]) Start: Patient encounter GANGA GAN [facility] Vi a [facility] 12-31-2015 procedure [facility] ([id number]) Start: Patient encounter RAVEN SANDERS [facility] Via [facility] 07-19-2015 procedure [facility] ([id number]) Start: Patient encounter RAVEN SANDERS [facility] Via [facility] 05-02-2014 procedure [facility] ([id number]) Start: Patient encounter CHIVO PALMA MD [facility] Via [facility] 01-03-2012 procedure [facility] ([id number]) End: 01-04-2012 Medical Equipment The data below is from unstructured sourcesNo Medical Equipment Information available Goals Date Patient Goal Desired Activity/St ate Immunizations Immunizatio Immunization Notes Care Provider Facility n Date 01-01-2019 GANGA ELVIA [place] Via [employer] Work Phone: Hospital ([id number]) Interventions No Information Medications Medication Drug Dates Sig Sig (Original) Class(es) (Normalized) Acetaminophen / Opioid End: Acetaminophen/ Hydrocodone Bitart HYDROcodone Agonist 06-22-2017 Discontinued 1 - 2 ORAL Q4hr Prn 30 (1 source) June 22, 2017 every 4-6 hrs. as needed for pain Cardio Whey End: Cardio Whey Discont inued 1 NOT (1 source) 06-22-2017 APPLICABLE Daily Ap ril 2017 1 SCOOP cefdinir 300 mg oral Cephalospo Start: Cefdinir Discontinued 300 ORAL Twice A capsule rin 12-02-2017 Day for For Inf ection December 02, (2 sources) Antibacter 2017 10:11pm (One-Time) ial End: 12-03-2017 Cholecalciferol Vitamin D Cholecalciferol (Vi tamin D3) Active 1999 (1 source) ORAL Daily Flaxseed extract Non-Standa End: Flax Seed Dis continued NOT APPLICABLE (1 source) rdized 06-22-2017 Daily June 1 TBSP DAILY Food Allergenic Extract, Non-Standa rdized Plant Allergenic Extract Green Tea [place] Extract End: Green Tea [place] Extract Discontinued 2 (1 source) 06-22-2017 ORAL Daily June 222017 [place]-3 Fatty Acids/Fish End: [place]-3 Fatt y Acids/Fish Oil Oil 06-22-2017 Discontinued 2 ORAL Daily June 22, (1 source) 2017 ondansetron 4 mg Serotonin- Start: Ondansetron D iscontinued 4 ORAL Every disintegrating oral 3 Receptor 12-02-2017 4HRS for N ausea/Vomiting 14 November tablet Antagonist 2017 10:11pm (One-Time) (2 sources) End: 12-03-2017 Vit D3 End: Vit D3 Discontinued 1999 ORAL Daily (1 source) 06-22-2017 June 22, 2017 Payers Date Payer Normalized Payer [id number] Plan of Treatment Date Care Activity Detail Author Start: Electrocardiographic Tracing only of Via [facility] 12-02-2017 procedure electrocardiogram [place] ([phone]) Patient Education Preventing Falls in the [place] Via [facility] ([id number]) Patient referral [place] Via [facility] ([id number]) Problems Active Problems Problem Problem Date Last Documented Episodic/Chr Provider Classificati Recorded Date onic on Coagulation Thrombocytopenia, unspecified Chronic GANGA and GAN DO hemorrhagic disorders (2 sources) Coma; Coma scale, best verbal response, Episodic EVIE BALA stupor; and confused conversation, at a rrival brain damage to emergency department ; (12 sources) Translations: [COMA SCALE, BEST MOTOR RESPONSE, OBEYS C] 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 with out sis and angina pectoris other heart disease (6 sources) Coronary 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 ; Translations: CAPTAIN sis and [Aortocoronary bypass statu s] other heart disease (10 sources) Delirium, 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, onset ; Translations: [Unspecified MD and amnestic dementia without behavioral and other disturbance] cognitive disorders (25 sources) Diabetes Type 2 diabetes mellitus with Chronic RAVEN mellitus hyperglycemia CAPTAIN with complication s (2 sources) Disorders of Pure hypercholesterolemia, Chronic R EBECCA lipid unspecified ; Translations: [Mixed CAPTAIN metabolism hyperlipidemia] (17 sources) E Codes: Unspecified fall, initial encounter Episodic EVIE BALA Fall (4 sources) E Codes: Bathroom of unspecified Episodic EVIE BALA Place of non-institutional (private) occurrence residence single-family ([facility]) (4 sources) house as the place of occur rence of the external cause Fever of Fever, unspecified ; Translations: Episodic LUZ MARIA ANA DO unknown [Pyrexia of unknown origin] origin (5 sources) Genitourinar Presence of urogenital implants Chronic LUZ MARIA ANA DO y symptoms and ill-defined conditions (4 sources) Headache; Headache Episodic LUZ MARIA ANA DO including migraine (4 sources) Malaise and Weakness Episodic EVIE BALA fatigue (4 sources) Mood Major depressive disorder, single Chronic ELA EDVIN disorders episode, unspecified MD (13 sources) Nausea and Nausea with vomiting, unspecified Episodic LUZ MARIA ANA DO vomiting (4 sources) Other Other recycle coordinator (current) drug Episodic ELA PARDO aftercare therapy MD (5 sources) Other [facility] (current) use of aspirin Episodic LUZ MARIA ANA DO aftercare (8 sources) Other [facility] (current) use of oral Episodic LUZ MARIA ANA DO aftercare hypoglycemic drugs (4 sources) Other Personal history of other diseases Episodic LUZ MARIA ANA DO gastrointest of the digestive system inal disorders (4 sources) Other Personal history of other malignant Episodic LUZ MARIA ANA DO non-epitheli neoplasm of skin al cancer of skin (8 sources) Poisoning by Poisoning by predominantly Episodic K ATELYKevin ALMENDAREZK other beta-adrenoreceptor agonists, medications accidental (unintentional), initial and drugs encounter ; Translations: (10 sources) [Accidental drug overdose] Poisoning by Poisoning by selective serotonin Episodic ELA PARDO psychotropic reuptake inhibitors, accidental MD agents (unintentional), initial en counter (5 sources) Residual Sleep apnea, unspecified ; Chronic L PERLA ANA DO codes; Translations: [ACQUIRED ABS ENCE OF unclassified OTHER SPECIFIED PART] (8 sources) Residual Dependence on other enabling Chronic EVIE BALA codes; machines and devices unclassified (4 sources) Residual Acquired absence of other specified Episodic LUZ MARIA ANA DO codes; parts of digestive tract unclassified (6 sources) Screening Personal history of nicotine Episodic LUZ MARIA ANA DO and history dependence of mental health and substance abuse codes (8 sources) Past or Other Problems Problem Problem Date Last Documented Episodic/Chr Provider Classificati Recorded Date onic on Biliary Calculus of gallbladder and bile Episodic CHIVO tract duct with acute cholecystitis, CAMPOS DUQUE MD disease without mention of obstruct ion (2 sources) E Codes: Fall fall GAN (1 source) Work Phone: Other lower Solitary pulmonary nodule Episodic [place] LLIAM respiratory GAN DO disease (4 sources) Residual Acquired absence of other organs Episodic LUZ MARIA ANA DO codes; unclassified (2 sources) Procedures Date Procedure Procedure Detail Performing Cl inician Start: CT of head without GANGA GAN 01-01-2019 contrast Work Phone: Start: CT of chest, LUZ MARIA K ANA 12-02-2017 abdomen and pelvis Work Phone: without contrast Start: CT of head without LUZ MARIA K ANA 12-02-2017 contrast Work Phone: Start: Plain chest X-ray LUZ MARIA K ANA 12-02-2017 Results Test Name Value Interpreta Reference Facilit Date tion Range y Time not yet categorized on 2019-09-14 PROCALCITONIN (PCT) 0.19 High <0.10 PENDING 12-06 ng/mL [facility] 020 N S 13:45-0 ([id number]) 400 laboratory on 2019-09-14 Albumin [Mass/Vol] 4.1 g/dL Negative 3.2-4.5 PENDING 07-1 0-2 g/dL [facility] 020 [facility] 13:45-0 ([id number]) 400 ALP [Catalytic 238 U/L High 40-136 U/L PENDING activity/Vol] [facility] 020 [facility] 13:45-0 ([id number]) 400 ALT [Catalytic 148 U/L High 0-55 U/L PENDING activity/Vol] [facility] 020 [facility] 13:45-0 ([id number]) 400 Anion gap 12 mmol/L Negative 5-14 PENDING [Moles/Vol] mmol/L [facility] 020 [facility] 13:45-0 ([id number]) 400 AST [Catalytic 64 U/L High 5-34 U/L PENDING activity/Vol] [facility] 020 [facility] 13:45-0 ([id number]) 400 Bacteria LM Ql Negative Invalid PENDING (Urine sed) Interpreta [facility] 020 tion Code [facility] 14:51-0 ([id number]) 400 Basophils (Bld) 0.0 10*3/uL Negative 0.0-0.1 PENDING 09-13 [#/Vol] 10*3/uL [facility] 020 [facility] 13:45-0 ([id number]) 400 Basophils/100 WBC 0 % Negative 0-10 % PENDING 09-13 (Bld) [facility] [address] [place] [address] 13:45-0 ([id number]) 400 Bilirubin [Mass/Vol] 1.1 mg/dL High 0.1-1.0 PENDING - mg/dL [facility] 020 [facility] 13:45-0 ([id number]) 400 Bilirubin Ql (U) Negative Invalid NEGATIVE PENDING Interpreta [facility] 020 tion Code [facility] 14:51-0 ([id number]) 400 Calcium [Mass/Vol] 9.8 mg/dL Negative 8.5-10.1 PENDING - 0-2 mg/dL [facility] 020 [facility] 13:45-0 ([id number]) 400 Calcium [Mass/Vol] 9.7 mg/dL Negative 8.5-10.1 PENDING 07-1 0-2 mg/dL [facility] 020 N [facility] 13:45-0 ([id number]) 400 Casts LM Ql (Urine NONE Invalid PENDING sed) Interpreta [facility] 020 tion Code N [facility] 14:51-0 ([id number]) 400 Chloride [Moles/Vol] 102 mmol/L Negative 98-107 PENDING 0 7-10-2 mmol/L LOCATIO 020 N [facility] 13:45-0 ([id number]) 400 Clarity (U) CLEAR Invalid PENDING Interpreta [facility] 020 tion Code N [facility] 14:51-0 ([id number]) 400 CO2 [Moles/Vol] 24 mmol/L Negative 21-32 PENDING mmol/L LOCATIO 020 N [facility] 13:45-0 ([id number]) 400 Color (U) YELLOW Invalid PENDING Interpreta [facility] 020 tion Code [facility] 14:51-0 ([id number]) 400 Creatinine 1.52 mg/dL High 0.60-1.30 PENDING [Mass/Vol] mg/dL LOCATIO 020 N [facility] 13:45-0 ([id number]) 400 Creatinine and 44 Invalid PENDING Glomerular Interpreta [facility] 020 filtration tion Code [facility] 13:45-0 rate.predicted panel ([id number]) 400 - Serum, Plasma or Blood Crystals LM Ql NONE Invalid PENDING (Urine sed) Interpreta [facility] 020 tion Code N [facility] 14:51-0 ([id number]) 400 Eosinophils (Bld) 0.1 10*3/uL Negative 0.0-0.3 PENDING 12-06 [#/Vol] 10*3/uL [facility]IO 020 N [facility] 13:45-0 ([id number]) 400 Eosinophils/100 WBC 2 % Negative 0-10 % PENDING 12-06 (Bld) LOCATIO 020 N [facility] 13:45-0 ([id number]) 400 Epithelial RARE Invalid PENDING cells.squamous LM Ql Interpreta [facility] 020 (Urine sed) tion Code N [facility] 14:51-0 ([id number]) 400 Erythrocyte 13.4 % Negative 10.0-14.5 PENDING distribution width % [facility] 020 (RBC) [Ratio] N [facility] 13:45-0 ([id number]) 400 Glucose [Mass/Vol] 119 mg/dL High 70-105 PENDING - 0-2 mg/dL [facility]ATIO 020 N [facility] 13:45-0 ([id number]) 400 Glucose Auto test Negative Invalid NEGATIVE PENDING 09-13 strip Ql (U) Interpreta [facility] 020 tion Code N [facility] 14:51-0 ([id number]) 400 Hematocrit (Bld) 37 % Low 40-54 % PENDING [Volume fraction] [facility] 020 [facility] 13:45-0 ([id number]) 400 Hemoglobin (Bld) 12.5 g/dL Low 13.3-17.7 PENDING [Mass/Vol] g/dL [facility] 020 [facility] 13:45-0 ([id number]) 400 INR Coag (Platelet 1.0 Negative 0.8-1.4 PENDING 09-04 0- poor plasma or [facility] 020 blood) [Relative N [facility] 13:45-0 time] ([id number]) 400 Ketones Auto test Negative Invalid NEGATIVE PENDING 09-13 strip Ql (U) Interpreta [facility] 020 tion Code N [facility] 14:51-0 ([id number]) 400 Leukocyte esterase Negative Invalid NEGATIVE PENDING 09-04 0-2 Test strip Ql (U) Interpreta [facility] 020 tion Code N [facility] 14:51-0 ([id number]) 400 Lymphocytes (Bld) 1.2 10*3/uL Negative 1.0-4.0 PENDING 12-06 [#/Vol] 10*3 LOCATIO 020 [facility] 13:45-0 ([id number]) 400 Lymphocytes/100 WBC 13 % Negative 12-44 % PENDING 12-06 (Bld) LOCATIO 020 [facility] 13:45-0 ([id number]) 400 MCH (RBC) [Entitic 30 pg Negative 25-34 pg PENDING - 0-2 mass] LOCATIO 020 [facility] 13:45-0 ([id number]) 400 MCHC (RBC) 34 g/dL Negative 32-36 g/dL PENDING [Mass/Vol] LOCATIO 020 [facility] 13:45-0 ([id number]) 400 MCV (RBC) [Entitic 89 Negative 80-99 PENDING 07-1 0-2 vol] [foz_us] LOCATIO 020 [facility] 13:45-0 ([id number]) 400 Monocytes (Bld) 0.6 10*3/uL Negative 0.0-1.0 PENDING 09-13 [#/Vol] 10*3 LOCATIO 020 [facility] 13:45-0 ([id number]) 400 Monocytes/100 WBC 6 % Negative 0-12 % PENDING 09-13 (Bld) LOCATIO 020 [facility] 13:45-0 ([id number]) 400 Mucus Ql (Urine sed) Negative Invalid PENDING 09-13 Interpreta [facility] 020 tion Code [facility] 14:51-0 ([id number]) 400 Neutrophils (Bld) 7.0 10*3/uL Negative 1.8-7.8 PENDING 12-06 [#/Vol] 10*3 LOCATIO 020 [facility] 13:45-0 (22753) 400 Neutrophils/100 WBC 79 % High 42-75 % PENDING 12-06 (Bld) LOCATIO 020 [facility] 13:45-0 ([id number]) 400 Nitrite Ql (U) Negative Invalid NEGATIVE PENDING Interpreta [facility] 020 tion Code [facility] 14:51-0 ([id number]) 400 pH (U) 6.0 [pH] Invalid 5-9 PENDING Interpreta [facility] 020 tion Code [facility] 14:51-0 ([id number]) 400 Platelet mean volume 9.5 Negative 7.4-10.4 PENDING (Bld) [Entitic vol] [foz_us] LOCATIO 020 [facility] 13:45-0 ([id number]) 400 Platelets (Bld) 160 10*3/uL Negative 130-400 PENDING 09-13 [#/Vol] 10*3/uL LOCATIO 020 [facility] 13:45-0 ([id number]) 400 Potassium 3.9 mmol/L Negative 3.6-5.0 PENDING [Moles/Vol] mmol/L LOCATIO 020 [facility] 13:45-0 ([id number]) 400 Protein [Mass/Vol] 6.8 g/dL Negative 6.4-8.2 PENDING 07-1 0-2 g/dL LOCATIO 020 [facility] 13:45-0 ([id number]) 400 Protein Ql (U) Negative Invalid NEGATIVE PENDING Interpreta [facility] 020 tion Code [facility] 14:51-0 ([id number]) 400 PT Coag (PPP) [Time] 13.8 s Negative 12.2-14.7 PENDING s LOC[facility]IO 020 [facility] 13:45-0 ([id number]) 400 RBC (Bld) [#/Vol] 4.14 10*6/uL Low 4.35-5.85 PENDING 10*6/uL LOCATIO 020 [facility] 13:45-0 ([id number]) 400 RBC LM.HPF (Urine RARE Invalid PENDING sed) [#/Area] Interpreta [facility] 020 tion Code [facility] 14:51-0 ([id number]) 400 RBC Ql (U) Negative Invalid NEGATIVE PENDING Interpreta [facility] 020 tion Code [facility] 14:51-0 ([id number]) 400 Sodium [Moles/Vol] 138 mmol/L Negative 135-145 PENDING 12-06 mmol/L LOCATIO 020 [facility] 13:45-0 ([id number]) 400 Specific gravity (U) 1.010 Low 1.016-1.02 PENDING 0 09-13-2 [Rel density] 2 LOCATIO 020 [facility] 14:51-0 ([id number]) 400 Urea nitrogen 21 mg/dL High 7-18 mg/dL PENDING [Mass/Vol] LOCATIO 020 [facility] 13:45-0 ([id number]) 400 Urea 14 mg/mg Invalid PENDING nitrogen/Creatinine Interpreta [facility] 020 [Mass ratio] tion Code [facility] 13:45-0 ([id number]) 400 Urinalysis complete NO Invalid PENDING W Reflex Culture Interpreta [facility] 020 panel - Urine tion Code [facility] 14:51-0 ([id number]) 400 Urobilinogen (U) 2.0 mg/dL Invalid < = 1.0 PENDING [Mass/Vol] Interpreta mg/dL [facility] 020 tion Code N [facility] 14:51-0 ([id number]) 400 WBC (Bld) [#/Vol] 8.9 10*3/uL Negative 4.3-11.0 PENDING 12-06 10*3/uL LOCATIO 020 N [facility] 13:45-0 ([id number]) 400 WBC LM.HPF (Urine NONE Invalid PENDING sed) [#/Area] Interpreta [facility] 020 tion Code N [facility] 14:51-0 ([id number]) 400 wbc lm.hpf (urine sed) [#/area] on 2017-12-02 WBC LM.HPF (Urine Via sed) [#/Area] Maria[place] [facility] ([id number]) wbc auto (bld) [#/vol] on 2017-12-02 WBC (Bld) [#/Vol] 6.2 10*3/uL 4.3-11.0 [facility] ([id number]) urobilinogen auto test strip (u) [mass/vol] on 2017-12-02 Urobilinogen (U) 1 mg/dL NORMAL Via [Mass/Vol] Maria[place] [facility] l [facility] (06222) urinalysis complete w reflex culture panel (u) on 2017-12-02 Urinalysis complete NO Via W Reflex Culture [place] panel - Urine [facility] ([id number]) urea nitrogen/creatinine [mass ratio] on 2017-12-02 Urea 15 mg/mg Via nitrogen/Creatinine Maria[place] [Mass ratio] [facility] (49483) urea nitrogen [mass/vol] on 2017-12-02 Urea nitrogen 21 mg/dL High 7-18 Via [Mass/Vol] Maria[place] [facility] ([id number]) specific gravity test strip (u) [rel density] on 2017-12-02 Specific gravity (U) 1.010 Invalid 1.016-1.02 Via [Rel density] Interpreta 2 [place] tion Code [facility] ([id number]) sodium [moles/vol] on 2017-12-02 Sodium [Moles/Vol] 138 mmol/L 135-145 Via [facility] (89012) segmented neutrophils/100 wbc manual cnt (bld) on 2017-12-02 Segmented 80 % Via neutrophils/100 WBC Maria[place] (Bld) Lacie Streeter ([id number]) rbc morphology finding nom (bld) on 2017-12-02 RBC morphology NORMAL Via finding Nom (Bld) [facility] ([id number]) rbc lm.hpf (urine sed) [#/area] on 2017-12-02 RBC LM.HPF (Urine NONE Via sed) [#/Area] [facility] ([id number]) rbc lm ql (urine sed) on 2017-12-02 RBC Ql (U) Negative NEGATIVE [facility] ([id number]) rbc auto (bld) [#/vol] on 2017-12-02 RBC (Bld) [#/Vol] 3.90 10*6/uL Low 4.35-5.85 Via [facility] () pt coag (ppp) [time] on 2017-12-02 PT Coag (PPP) [Time] 14.3 s 12.2-14.7 Via [facility] ([id number]) protein test strip ql (u) on 2017-12-02 Protein Ql (U) 1+ Invalid NEGATIVE Via Rafaa [place] [facility] fatimah Streeter ([id number]) protein [mass/vol] on 2017-12-02 Protein [Mass/Vol] 6.4 g/dL 6.4-8.2 Via [facility] fatimah Streeter rg ([id number]) potassium [moles/vol] on 2017-12-02 Potassium 3.9 mmol/L 3.6-5.0 Via [Moles/Vol] [facility] fatimah bustillos (02408) platelets auto (bld) [#/vol] on 2017-12-02 Platelets (Bld) 102 10*3/uL Low 130-400 Via [#/Vol] [facility] (90602) platelet mean volume auto (bld) [entitic vol] on 2017-12-02 Platelet mean volume 9.9 fL 7.4-10.4 Via (Bld) [Entitic vol] [facility] bustillos ([id number]) ph test strip (u) on 2017-12-02 pH (U) 7 [pH] 5-9 Via [place]a bustillos ([id number]) nitrite test strip ql (u) on 2017-12-02 Nitrite Ql (U) Negative NEGATIVE Via [place]a bustillos (11651) neutrophils/100 wbc auto (bld) on 2017-12-02 Neutrophils/100 WBC 92 % High 42-75 Via (Bld) [facility] (53035) neutrophils auto (bld) [#/vol] on 2017-12-02 Neutrophils (Bld) 5.7 10*3/uL 1.8-7.8 Via [#/Vol] [place] bustillos ([id number]) mucus lm ql (urine sed) on 2017-12-02 Mucus Ql (Urine sed) TRACE Via Mariaa bustillos (06862) monocytes/100 wbc (bld) on 2017-12-02 Monocytes/100 WBC 1 % Via (Bld) [facility] ([id number]) Monocytes/100 WBC 5 % 0-12 Via (Bld) [place] bustillos ([id number]) monocytes auto (bld) [#/vol] on 2017-12-02 Monocytes (Bld) 0.3 10*3/uL 0.0-1.0 Via [#/Vol] [facility] bustillos (60656) mcv auto (rbc) [entitic vol] on 2017-12-02 MCV (RBC) [Entitic 93 fL 80-99 Via vol] [facility] ([id number]) mchc auto (rbc) [mass/vol] on 2017-12-02 MCHC (RBC) 34 g/dL 32-36 Via [Mass/Vol] [facility] ([id number]) mch auto (rbc) [entitic mass] on 2017-12-02 MCH (RBC) [Entitic 32 pg 25-34 Via mass] Mariaamartell bustillos ([id number]) manual blood basophils/100 leukocytes on 2017-12-02 Basophils/100 WBC 0 % Via (Bld) [facility] (78142) magnesium on 2017-12-02 Magnesium [Mass/Vol] 1.5 mg/dL Low 1.8-2.4 Via [facility] ([id number]) lymphocytes/100 wbc manual cnt (bld) on 2017-12-02 Lymphocytes/100 WBC 5 % Via (Bld) [facility] ([id number]) lymphocytes/100 wbc auto (bld) on 2017-12-02 Lymphocytes/100 WBC 3 % Low 12-44 Via (Bld) [facility] (65762) lymphocytes auto (bld) [#/vol] on 2017-12-02 Lymphocytes (Bld) 0.2 10*3/uL Low 1.0-4.0 Via [#/Vol] [facility] ([id number]) lipase [catalytic activity/vol] on 2017-12-02 Lipase [Catalytic 59 U/L 8-78 Via activity/Vol] [facility] (04104) leukocyte esterase test strip ql (u) on 2017-12-02 Leukocyte esterase 1+ Invalid NEGATIVE Via Test strip Ql (U) Interpreta Mariaa tion Code [facility] ([id number]) lactate [moles/vol] on 2017-12-02 Lactate [Moles/Vol] 2.06 mmol/L Invalid 0.50-2.00 Via Interpreta Mariaa tion Code [facility] ([id number]) lactate (bld) [moles/vol] on 2017-12-02 Lactate [Moles/Vol] 2.05 mmol/L Invalid 0.50-2.00 Via Interpreta Mariaa tion Code [facility] ([id number]) ketones auto test strip ql (u) on 2017-12-02 Ketones Auto test Negative NEGATIVE Via strip Ql (U) [facility] ([id number]) inr coag (platelet poor plasma or blood) [relative time] on 2017-12-02 INR Coag (Platelet 1.1 0.8-1.4 Via poor plasma or Mariaa blood) [Relative Hospita time] [facility] ([id number]) hemoglobin (bldv) [mass/vol] on 2017-12-02 Hemoglobin (Bld) 12.4 g/dL Low 13.3-17.7 Via [Mass/Vol] [facility] ([id number]) hematocrit (bld) [volume fraction] on 2017-12-02 Hematocrit (Bld) 36 % Low 40-54 Via [Volume fraction] [facility] (74806) glucose auto test strip ql (u) on 2017-12-02 Glucose Auto test Negative NEGATIVE Via strip Ql (U) [facility] ([id number]) glucose [mass/vol] on 2017-12-02 Glucose [Mass/Vol] 176 mg/dL High 70-105 Via [facility] ([id number]) erythrocyte distribution width auto (rbc) [ratio] on 2017-12-02 Erythrocyte 13.2 % 10.0-14.5 Via distribution width Mariaa (RBC) [Ratio] [facility] ([id number]) epithelial cells.squamous lm ql (urine sed) on 2017-12-02 Epithelial RARE Via cells.squamous LM Ql Mariaa (Urine sed) [facility] ([id number]) eosinophils/100 wbc manual cnt (nose) on 2017-12-02 Eosinophils/100 WBC 0 % Via (Nose) [facility] ([id number]) eosinophils/100 wbc auto (bld) on 2017-12-02 Eosinophils/100 WBC 0 % 0-10 Via (Bld) [facility] ([id number]) eosinophils auto (bld) [#/vol] on 2017-12-02 Eosinophils (Bld) 0.0 10*3/uL 0.0-0.3 Via [#/Vol] [facility] ([id number]) crystals lm ql (urine sed) on 2017-12-02 Crystals LM Ql NONE Via (Urine sed) [facility] ([id number]) creatinine and glomerular filtration rate.predicted panel (s/p/bld) on 2017-12-02 GFR/1.73 sq 50 mL/min/{1.73_m2} Via M.predicted among Mariaa non-blacks [facility] (S/P/Bld) [Vol l rate/Area] [facility] ([id number]) creatinine [mass/vol] on 2017-12-02 Creatinine 1.37 mg/dL High 0.60-1.30 Via [Mass/Vol] [facility] ([id number]) color (u) on 2017-12-02 Color (U) YELLOW Via [facility] ([id number]) clarity (u) on 2017-12-02 Clarity (U) CLEAR Via [facility] ([id number]) chloride [moles/vol] on 2017-12-02 Chloride [Moles/Vol] 105 mmol/L 98-107 Via [facility] ([id number]) casts lm ql (urine sed) on 2017-12-02 Casts LM Ql (Urine NONE Via sed) [facility] ([id number]) carbon dioxide on 2017-12-02 CO2 [Moles/Vol] 23 mmol/L 21-32 Via [facility] ([id number]) calcium measurement corrected for albumin on 2017-12-02 Albumin [Mass/Vol] 9.0 g/dL 8.5-10.1 Via [facility] ([id number]) calcium [mass/vol] on 2017-12-02 Calcium [Mass/Vol] 9.1 mg/dL 8.5-10.1 Via [facility] ([id number]) bilirubin test strip ql (u) on 2017-12-02 Bilirubin Ql (U) Negative NEGATIVE Via [facility] ([id number]) bilirubin [mass/vol] on 2017-12-02 Bilirubin [Mass/Vol] 1.5 mg/dL High 0.1-1.0 Via [facility] ([id number]) basophils auto (bld) [#/vol] on 2017-12-02 Basophils (Bld) 0.0 10*3/uL 0.0-0.1 Via [#/Vol] [facility] ([id number]) band form neutrophils/100 wbc (bld) on 2017-12-02 Band form 14 % Via neutrophils/100 WBC [facility] (Bld) [facility] ([id number]) bacteria lm ql (urine sed) on 2017-12-02 Bacteria LM Ql NONE Via (Urine sed) [facility] ([id number]) ast [catalytic activity/vol] on 2017-12-02 AST [Catalytic 73 U/L High 5-34 Via activity/Vol] [facility] ([id number]) aptt coag (ppp) [time] on 2017-12-02 aPTT Coag (PPP) 26 s 24-35 Via [Time] [facility] ([id number]) anion gap [moles/vol] on 2017-12-02 Anion gap 10 mmol/L 5-14 Via [Moles/Vol] [facility] ([id number]) amylase [catalytic activity/vol] on 2017-12-02 Amylase [Catalytic 93 U/L 25-125 Via activity/Vol] [facility] ([id number]) alt [catalytic activity/vol] on 2017-12-02 ALT [Catalytic 77 U/L High 0-55 Via activity/Vol] [facility] ([id number]) alp [catalytic activity/vol] on 2017-12-02 ALP [Catalytic 66 U/L 40-136 Via activity/Vol] [facility] (53433) albumin [mass/vol] on 2017-12-02 Albumin [Mass/Vol] 4.1 g/dL 3.2-4.5 Via [facility] ([id number]) Social History Date Type Detail Facility Start: Tobacco smoking status NHIS Ex-smoker (finding ) [place] [facility] 01-01-2019 [facility] ([id number]) Start: Denies Use [place] [facility] 01-01-2019 [facility] ([id number]) Start: No [place] [facility] 01-01-2019 [facility] ([id number]) Start: Denies [place] [facility] 01-01-2019 [facility] ([id number]) Start: Former Smoker [place] [facility] 01-01-2019 [facility] ([id number]) Start: Cigarettes;Pipe [place] [facility] 01-01-2019 [facility] ([id number]) Start: Yes [place] [facility] 01-01-2019 [facility] ([id number]) Start: Sex Assigned At Male [facility] 1935 [facility] ([id number]) Vital Signs The data below is from unstructured sources Vital Response Date/Time Temperature (Fahrenheit) 98.4 degree s F (97.6 - 99.5) 06/22/2017 3:31pm Temperature (Calculated Celsius) 36. 86551 degrees C (36.4 - 37.5) 06/22/2017 3:31pm Temperature Source Temporal 06/22/2017 3:31pm Pulse Rate (adult) 72 bpm (60 - 90) 06/22/2017 3:31pm Respiratory Rate 12 bpm (12 - 24) 06/22/2017 3:31pm O2 Sat by Pulse Oximetry 93 % (88 - 100) 06/22/2017 3:31pm Blood Pressure 148/69 mm Hg 06/22/2017 3:31pm Blood Pressure Mean 95 mm Hg (65 - 110) 06/22/2017 3:31pm Pain Numeric Pain Scale 0-No Pain 06/22/2017 5:54pm Height (Feet) 5 feet 7:28pm Height (Inches) 7.00 inches 06/21/2017 7:28pm Height (Calculated Centimeters) 170. 837800 cm 06/21/2017 7:28pm Weight (Pounds) 207 pounds 06/22/2017 6:00am Weight (Ounces) 2.0 oz 0 06/22/2017 6:00am Weight (Calculated Grams) 60856.321 gm 06/22/2017 6:00am Weight (Calculated Kilograms) 93.950 321 kilograms 06/22/2017 6:00am Calculated BMI 30.6 06/05 7:28pm Weight Method Stated 4:47pm Weight Measurement Method Built in [place] e 06/22/2017 6:00am Capillary Refill Capillary Refill Less Than 3 Seconds 06/21/2017 9:00pm Vital Response Date/Time Temperature (Fahrenheit) 102.5 degre es F (97.6 - 99.5) 12/02/2017 8:49pm Temperature (Calculated Celsius) 39. 20139 degrees C (36.4 - 37.5) 12/02/2017 8:49pm Pulse Rate (adult) 103 bpm (60 - 90) 12/02/2017 8:49pm Respiratory Rate 16 bpm (12 - 24) 12/02/2017 8:49pm O2 Sat by Pulse Oximetry 95 % (88 - 100) 12/02/2017 8:49pm Blood Pressure 116/63 mm Hg 12/02/2017 8:49pm Blood Pressure Mean 80 mm Hg (65 - 110) 12/02/2017 8:49pm Height (Feet) 5 feet 8:49pm Height (Inches) 9.00 inches 12/02/2017 8:49pm Height (Calculated Centimeters) 175. 012037 cm 12/02/2017 8:49pm Height Method Stated 8:49pm Weight (Pounds) 180 pounds 12/02/2017 8:49pm Weight (Calculated Grams) 88513.63 gm 12/02/2017 8:49pm Weight (Calculated Kilograms) 81.646 627 kilograms 12/02/2017 8:49pm Weight Method Stated 8:49pm Capillary Refill Capillary Refill Less Than 3 Seconds 12/02/2017 8:49pm Height 5 ft 9 in 018 8:49pm Weight 180 lb 12/02/2017 8:49pm Body Mass Index 26.6 kg/m^2 12/02/2017 8:49pm Vital Reading Result Col lection Date/Time Vital Reading Result Col lection Date/Time Functional Status The data below is from unstructured sources Query Response Date [place] rded Comprehension Ability Understands Co ncepts June 22, 2017 8:20am No Functional Status information available Mental Status The data below is from unstructured sourcesNo Mental Status Information Available Evaluation note Note Date & Note Facility Type Evaluation No Assessments Information Available [facility] ([id number]) Advance Directives Directive Response Recor ded Date/Time Advance Directives Yes 0 06/21/17 8:08pm Health Care Power of [place] Support Worker No 06/21/17 8:08pm Organ Donor Yes 06/21/17 8:08pm Resuscitation Status Full Code 06/21/17 8:08pm Directive Response Recor ded Date/Time Advance Directives Yes 0 12/02/17 7:05pm Health Care Power of [place] Support Worker No 12/02/17 7:05pm Organ Donor Yes 12/02/17 7:05pm Resuscitation Status Full Code 12/02/17 7:05pm Advance Directive Response Recorded Date/Time Advance Directives Yes O ctober 2018 2:29pm Health Care Power of [place] Support Worker No January 01, 2019 2:29pm Organ Donor Yes January 01, 2019 2:29pm Resuscitation Status Full Code January 01, 2019 2:29pm Discharge Instructions No hospital discharge instruction information available.No hospital discharge instruction information available. Chief Complaint and Reason for Visit Chief Complaint Trauma-Non Activatio n Reason for Visit [id number] Additional Source Comments This clinical document has been generated using Tip or Skip software that has been certified by the Office of the National Coordinator for Health Information Technology (ONC 15.99.04.3023.Diam.31.00.0.559876) and the National Committee for [employer] (NCQA, as an eMeasure certified technology). FOR RECORDS PERTAINING TO PATIENTS WHO ARE OR HAVE BEEN ENROLLED IN A CHEMICAL D EPENDENCY/SUBSTANCE ABUSE PROGRAM, SOME INFORMATION MAY BE OMITTED. This clinica l summary was aggregated from multiple sources. Caution should be exercised in using it in the provision of clinical care. This summary normalizes information from multiple sources, and as a consequence, information in this document may ma terially change the coding, format and clinical context of patient data. In gisele tion, data may be omitted in some cases. CLINICAL DECISIONS SHOULD BE BASED ON T HE PRIMARY CLINICAL RECORDS. [employer] provides no warranty or guara ntee of the accuracy or completeness of information in this document.The followi ng information is based on time limited clinical information
--- OUTSIDE RECORDS SUMMARY | 2019-09-14 20:48 | XMS REPORT | Encounter Summary ---
Author Author [facility] Organization [facility] Address Unknown Phone Unavailable Care Team Providers Care Product Safety Administrator Name Role Phone Charmaine Black PCP Encounter Details Care Team Description Date Type Department Benjie Palomino MD No Forwarding Address 05/22/2004 [facility] HISTORIC [...]
--- OUTSIDE RECORDS SUMMARY | 2019-09-14 20:48 | XMS REPORT | Encounter Summary ---
Author Author [facility] Organization [facility] Address Unknown Phone Unavailable Care Team Providers Care Working Second Hand Name Role Phone Ananth Black PCP Encounter Details Care Team Description Date Type Department Tim Tate MD [address] [address] [phone] 07/10/2004 [facility] [...] Signs Reading Time Taken Comments Vital Sign 132/70 07/10/2004 9:57 AM CDT Blood Pressure 100 07/10/2004 9:57 AM CDT Pulse - - Temperature - - Respiratory Rate - - Oxygen Saturation - - Inhaled Oxygen Concentration 105.2 kg (232 lb) 07/10/2004 9:57 AM CDT Weight 170.2 cm (5' 7") 07/10/2004 9:57 AM CDT Height 36.34 07/10/2004 9:57 AM CDT Body Mass Index documented in this encounter Progress Notes * Tim Tate MD - 07/10/2004 10:38 AM CDT [place] [facility] [address] [place] [id number] [phone] July 10, 2004 ANANTH BLACK MD [address] [facility] [place] [address] [place] [address] RE: CARL CHILDERS : 1935 Chart #: [id number] Dear Dr. BLACK: I had the pleasure of seeing CARL CHILDERS in the office today for a cardiovascula r follow-up visit. He is 69 years of age and presents with the following chief complaints: fatigue and chest pain. HPI: He has mild coronary artery disease with normal LV function based on a stress te st last year. For the last five months he has had a history of new onset, thoug h stable exertional angina manifested by chest pressure and a burning sensation for the first 10 minutes of his daily 30 minute walk. Sometimes his symptoms re solve after resting for a few minutes. Occasionally, he will continue his walk and his symptoms appear to slowly resolve by themselves. He is without rest sym ptoms, nocturnal symptoms or angina with ordinary activity. He is without sympt oms to suggest LV dysfunction. He has evidence of glucose intolerance/diabetes after reviewing laboratory data from your office. On 06/18/2004, his fasting glucose was 132. On 11/04/2003, t he fasting glucose was 137 with a hemoglobin A1c of 6.6. On 02/11/2004, the hem oglobin A1c was 6.8 with a glucose of 124. His lipids in 02/2004 showed a total cholesterol of 154, HDL of 35, LDL of 67 and triglycerides of 259. It was for that reason his Advicor was changed to Vytorin 40/10 mg. Other laboratory data included a creatinine of 1.2 and normal electrolytes and liver function tests. Problem List: 07/10/2004 CAD MPI Inferior wall ischemia. LVEF was 51%. Image appearances are similar to those of 07/22/2003. DM 05/22/2004 Dyslipidemia 07/10/2004 EF MPI Rest EF: 51, Stress EF: 51 Past Medical History: Anxiety Cholelithiasis Osteoporosis Perforated diverticulum Osteoarthritis Osteopenia Erectile Dysfunction Diverticulosis Colon polyps Gallbladder dysfunction BPH 2002 Squamous cell CA 2004 Sleep Apnea on CPAP Past Surgical History: Colon resection Appendectomy Current Medications: Caltrate-600 600-200 Take one tablet by mouth two times per day Multivitamin Take one tablet by mouth daily Zoloft 50mg Take one tablet by mouth daily Pepcid 20mg Take one tablet by mouth daily Levitra 20 Mg PRN Vytorin 10/40 Mg Take one tablet by mouth before bedtime Ecotrin 81mg Take one tablet by mouth daily Medications Prescribed During This Visit: Toprol XL 100mg Take one capsule by mouth daily [place]-3 Fatty Acids Take one tablet by mouth two times per day Allergies: No Known Allergies Family History: Brother Diagnosed with HTN. Mother Cause of was CVA at age 82. Brother Cause of was CRF at age 67. Father Cause of was DE at age 62. Brother Cause of was CABG at age 71. Sister Cause of was CA at age 86. Social History: Mr. CHILDERS is and retired. The patient exercises on a regular basis. Th e patient has never smoked. He has occasional alcohol usage consisting of 1 can of beer. There is no history of drug abuse. There are no advance directives. A review of the patient's dietary patterns indicates that they adhere to a regu lar diet. ROS: ROS is positive for: Constitutional: Fatigue Pulmonary: Snore Cardiovascular: Chest Discomfort, Leg pain while walking, Shortness of breath Musculoskeletal/Dermatology: Myalgias, Arthralgias Physical Exam: Vital Signs The patient is 5ft 7in tall, and weighs 232lbs. The BMI is 36.30. B lood pressure taken in the left arm is 132/70 mmHg in the sitting position. The pulse is 100 . The rhythm is regular. Const The [...] pulses 2+ throughout with no carotid bruits noted EXT The extremities are warm to touch. There is no edema noted. Skin The skin is warm and dry. Neuro/Psych The patient is alert and oriented to time, person and place. EKG: Comments: Sinus tachy at 108, otherwise normal. Impression: 1. Stable exertional angina, Class II. 2. Mixed dyslipidemia. 3. Hypertriglyceridemia and evidence of glucose intolerance/diabetes in the sett ing of obesity. 4. Treated obstructive sleep apnea. 5. Sinus tachycardia. Plan: 1. Increase Toprol to 100 mg daily. 2. Await adenosine PET study results that were completed today. 3. I recommend he have a CBC checked through your office when he returns next mo nth for a follow-up visit. This is to exclude anemia as a potential cause for n ew angina and sinus tachycardia. 4. Encouraged follow-up for diabetic diet and/or pharmacologic therapy to aggres sively treat his glucose intolerance, which over the termite inspector will exacerbate h is coronary disease. 5. I have explained to the patient and his the options for treatment of his angina. We could certainly proceed with catheterization with an eye towards pe rcutaneous revascularization to treat his symptoms of angina. He was not intere sted in this approach initially. As long as the stress test does not show signi ficant progression of his coronary artery disease, I believe we can continue on a medical regimen. I am hopeful that with a higher dose of beta aubrey, his sy mptoms will resolve/improve. If not, I would ask him to add Imdur 30 mg to his medical regimen. I specifically discussed the indications for proceeding with c atheterization, such as unstable symptoms which would include nocturnal or rest angina or increased frequency/severity of his symptoms. Follow up: Tim Tate M.D. 1 Year Thank you for allowing me to participate in CARL CHILDERS's care. If I can be of any further assistance, please do not hesitate to contact me. Sincerely, Tim ABERNATHY/ángel P: 07/13/04 8:33 AM documented in this encounter Plan of Treatment Not on filedocumented as of this encounter Visit Diagnoses Not on filedocumented in this encounter
--- OUTSIDE RECORDS SUMMARY | 2019-09-14 20:48 | XMS REPORT | Encounter Summary ---
Author Author [facility] Organization [facility] Address Unknown Phone Unavailable Care Team Providers Care Senior Medical Transcriptionist Name Role Phone Charmaine Black PCP Encounter Details Care Team Description Date Type Department [facility] ProviderLuc MD 07/10/2004 [facility] Result Social [...] Diag nosis CV MPI PET HISTORICAL Routine 07/10/2004 documented in this encounter Results * CV MPI PET historical (07/10/2004) Specimen Narrative Performed At Procedure Category: PET [facility]EXT[facility] Procedure: Rb-82 Dipyridamole Stress Procedure Summary: Inferior wall ischem ia.LVEF 51%.Image appearances are similar to those of July 22, 2003. Procedure Note Interface, Rad Conversion - 09/25/2014 10:20 AM CDT Procedure Category: PET Procedure: Rb-82 Dipyridamole Stress Procedure Summary: Inferior wall ischemia.LVEF 51%.Image appearances are similar to those of July 22, 2003. Performing Organization Address City/State/Zipcode Ph one Number NEXTGEN documented in this encounter Visit Diagnoses Not on filedocumented in this encounter
--- OUTSIDE RECORDS SUMMARY | 2019-09-14 20:48 | XMS REPORT | Encounter Summary ---
Author Author [facility] Organization [facility] Address Unknown Phone Unavailable Care Team Providers Care Buckle Strap Drum Operator Name Role Phone Ananth Black PCP Encounter Details Care Team Description [place] [address] [place] [phone] 11/08/2006 [facility] [...] Signs Reading Time Taken Comments Vital Sign 140/82 11/08/2006 11:12 AM CDT Blood Pressure 59 11/08/2006 11:12 AM CDT Pulse - - Temperature - - Respiratory Rate - - Oxygen Saturation - - Inhaled Oxygen Concentration 99.8 kg (220 lb) 11/08/2006 11:12 AM CDT Weight 170.2 cm (5' 7") 11/08/2006 11:12 AM CDT Height 34.46 11/08/2006 11:12 AM CDT Body Mass Index documented in this encounter Progress Notes * Tim Tate MD - 11/08/2006 11:02 AM CDT [place] [facility] [place] [address] [phone] November 08, 2006 ANANTH BLACK MD [address] [facility] [place] [address] RE: CARL CHILDERS : 1935 Chart #: [id number] Dear Dr. BLACK: I had the pleasure of seeing CARL CHILDERS in the office today for an annual evalu ation. He is 71 years of age and presents for follow up on chronic disease. HPI: He is a 71-year-old gentleman who returns with his for an annual visit. Fr om a cardiac standpoint, he is doing well. He continues to walk three miles a d ay in just under an hour without any symptoms such as angina or LV dysfunction. He is without palpitations, syncope, or edema. He is doing well on his statin without myalgias. He has noted some recurrence of his knee arthritis on stoppin g Celebrex a few years ago. He is on a CPAP for obstructive sleep apnea, and chatman s clearly benefited from it. Problem List: 07/10/2004 CAD MPI Inferior wall ischemia.LVEF 51%.Image appearances are simila r to those of July 22, 2003. DM [...] resection 2001 Skin Cancer Removal Current Medications: Vytorin 10/40 Mg Take 1/2 tablet by mouth daily Fish Oil Take one tablet by mouth two times per day Caltrate-600 Plus 600mg-200 Take one tablet by mouth two times per day Ecotrin 81mg Take one tablet by mouth daily Zoloft 50mg Take one tablet by mouth daily Pepcid 20mg Take one tablet by mouth daily Levitra 20 Mg PRN Multivitamin Take one tablet by mouth daily Medications Prescribed During This Visit: Toprol XL 50mg Take one tablet by mouth daily Lisinopril 20mg Take one tablet by mouth daily Allergies: No Known Allergies Family History: Brother Diagnosed with HTN. Mother Cause of was CVA at age 82. Brother Cause of was CRF at age 67. Father Cause of was [place] at age 62. Brother Cause of was CABG at age 71. Sister Cause of was CA at age 86. Social History: MR. CHILDERS is and retired. The patient exercises on a regular basis. T he patient is a former smoker and had smoked for 25.00 years but quit smoking i 1977. Patient drinks 1 beer weekly. There is no history of drug abuse. Th ere are no advance directives. A review of the patient's dietary patterns indic ates that he adheres to a low fat, low cholesterol diet. ROS: 12-point review of systems negative with the following exceptions: Musculoskeletal/Dermatology: Arthralgias Physical Exam: Vital Signs The patient is 5ft 7in tall, and weighs 220lbs. The BMI is 34.50. B lood pressure taken in the right arm is 140/82 mmHg in the sitting position. The pulse is 59 . The rhythm is regular. Const The [...] EKG: Result: Normal sinus rhythm, normal EKG. Impression: 1. LVEF 50% and inferior wall ischemic by PET imaging in 07/2004. 2. Recurrent weight gain of 15 pounds after he successfully dieted and lost weig ht last year. 3. Blood pressure not optimally controlled. 4. Diabetes which he is trying to manage with diet and exercise. Plan: 1. Lisinopril 20 mg q day. 2. Decrease Toprol to 50. 3. Screening for an abdominal aortic aneurysm. His older brother had an aneurys m, and there is another family member whom he cannot recall who also had an aneurysm. In addit ion, he would be part of the [place] Prevention protocol for one-time screening for aneurysm for m en over 65 who smoked in the past. It may be reasonable to consider a stress test next year when he returns, partic ularly if he struggles with ongoing diabetes. He reported that Levitra does cau se palpitations that can last up to an hour with mild flushing although it does not offer him much improvement in his sexual dysfunction. This was the same res ponse he had with Viagra, and as such he is not planning on using it any more. In this context, I do not believe that a stress test is necessary at this time. With his weight loss and diet, hopefully his triglycerides will improve as they did last year with weight loss. It is also possible that low-dose beta blockers and/or the addition of FINA inhibitors may help with his glycemic control. His will call should his blood pressure be consistently greater than 130. Follow up: Tim Tate M.D. 1 Year Thank you for allowing me to participate in CARL CHILDERS's care. If I can be of any further assistance, please do not hesitate to contact me. Sincerely, Tim ABERNATHY/jane F: 11/11/2006 9:51am documented in this encounter Plan of Treatment Not on filedocumented as of this encounter Visit Diagnoses Not on filedocumented in this encounter
--- OUTSIDE RECORDS SUMMARY | 2019-09-14 20:48 | XMS REPORT | Encounter Summary ---
Author Author [facility] Organization [facility] Address Unknown Phone Unavailable Care Team Providers Care Food Quality Tester Name Role Phone Charmaine Black PCP Encounter Details Care Team Description Date Type Department Tim Tate MD [address] [facility] [address] [place] [address] [phone] 12/07/2006 [facility] [...]
--- OUTSIDE RECORDS SUMMARY | 2019-09-14 20:48 | XMS REPORT | Encounter Summary ---
Author Author [facility] Organization [facility] Address Unknown Phone Unavailable Care Team Providers Care Tub Attendant Name Role Phone Ananth Black PCP Encounter Details Care Team Description [place] [address] [place] [id number] [phone] 11/21/2006 [facility] - [facility] HISTORIC [...] Progress Notes * Olman Holloway MD - 11/21/2006 1:13 PM CDT [facility] [address] [place] [phone] [id number] 11/23/2006 ANANTH BLACK MD [facility] [address] [place] [address] Re: CARL CHILDERS : 1935 Chart#: [id number] Dear Dr. BLACK: This is a followup note regarding CARL CHILDERS whom I saw 2 weeks ago for a [facility] visit. I had ordered an aorto-iliac duplex study screening for an abdominal aortic aneurysm. His older brother had an aneurysm, and there is another family member whom he cannot recall who also had an aneurysm. In addition, he would be part of the [place] Prevention protocol for one-time screening for aneurysm for me n over 65 who smoked in the past. In addition, he has hypertension and diabetes. Aorto-iliac duplex: 1. Moderate atherosclerosis within the abdominal aorta. 2. N ormal abdominal aorta dimensions. 3. Increased flow velocities in the distal aor ta (2.9 m/s) consistent with a significant stenosis. 4. Increased flow velocitie s in the right common iliac consistent with a 50-75% stenosis. 5. Increased flow velocity (3.6 m/s) is incidentally noted in the right renal artery. To further evaluate his vascular pathology, he will be scheduled for a CT angiog micaela of the abdomen and pelvis with runoffs. He will also have a follow-up appoi ntment with one of my peripheral interventional colleagues. These test results along with my recommendations [...]
--- OUTSIDE RECORDS SUMMARY | 2019-09-14 20:49 | XMS REPORT | Continuity of Care Document ---
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 Oral Active [facility], omeprazole DR(+) (PRILOSEC) 20 mg capsule Take 20 mg by mouth daily. Oral Active [facility], atorvastatin (LIPITOR) 40 mg tablet Take 40 mg by mouth daily. Oral Active [facility], aspirin 81 mg chewable tablet Take 81 mg by mouth daily. Oral Active [facility], HYLAN G-F 20 (SYNVISC IX) by I ntra-articular route. Every 6 months Intra-articular Active [facility], FEXOFENADINE HCL (TOÑO PO) Take 60 mg by mouth as Needed. Oral Active [facility], cholecalciferol (VITAMIN D-3) 1,000 units tablet Take 2,000 Units by mouth daily. Oral Active [facility], ALPRAZolam (XANAX) 0.5 mg tablet Take 0.25 mg by mouth at bedtime as needed. Oral Active [facility], glimepiride (AMARYL) 1 mg tablet Take 1 mg by mouth daily with breakfast. Oral Active [facility], memantine (NAMENDA) 10 mg tablet TAKE ONE TABLET BY MOUTH TWICE A DAY Active [facility] , sertraline (ZOLOFT) 50 mg tablet TAKE ONE AND ONE-HALF TABLET BY MOUTH DAILY Active [facility] , donepeziL (ARICEPT) 10 mg tablet TAKE ONE TABLET BY MOUTH DAILY Active [facility] , Allergies, Adverse Reactions, Alerts No Known Medication Allergies Immunizations Immunization Date Given Site Status Last Updated Comments Source Evaluated Forecast 09/15/2019 completed table.evaluated-forecast { border-collapse: collapse; font-family: Meta, Helvetica, sans-serif; } .evaluated-forecast th, .evaluated-forecast td { paddinpx 8px; } .evaluated-forecast thead th { background: #[id number]; text-transform: lowercase; text-align: left; font-size: 15px; color: #fff; } .evaluated-forecast tr { border: 1px solid #[id number]; } .evaluated- forecast tbody tr { border-bottom: 1px solid #[id number]; } .evaluated- forecast tbody tr:nth-child(odd) { background: #[id number]; } .e valuated-forecast tbody th, .evaluated-forecast tbody tr td { border- right: 1px solid #[id number]; } .evaluated-forecast tfoot th { background: #[id number]; text-align: left; font-weight: normal; font-size: 10px; color: #fff; } .evaluated-forecast tr *:nth- child(3), .evaluated-forecast tr *:nth-child(4) { text-align: right; } ASHLY (Varivax) 1936 Tdap 1941 Zoster Subunit (Shingrix) 01/31/1984 PPSV23 (Pneumovax 23) 01/01/2017 Influenza IIV4 MDV 09/05/2019 Polio, UF QY82361-0^Too Old^LN MMR OY93702-8^Immune^LN Hib, UF NG81598-9^Too Old^LN Hep B, UF UZ86505-2^Too Old^LN Hep A, UF OK59532-0^Too Old^LN Rotavirus, UF QK34130-2^Too Old^LN Meningococcal, UF IX74333-4^Too Old^LN HPV, UF MK97983-0^Too Old^LN GL1269, Influenza IIV3 High 01/02/2018 Left Posterolateral fat of Upper Arm Not Given [id number], Influenza IIV3 High 12/29/2016 Left Posterolateral fat of Upper Arm Not Given [id number], PCV-13 (Prevnar) 01/02/2016 Left Posterolateral fat of Upper Arm Not Given [id number], Influenza IIV3 High 12/30/2015 Left Posterolateral fat of Upper Arm Not Given [id number], Influenza TIV 12/24/2004 Not Given [id number], Results No Data Provided for This Section Pathology Reports No Data Provided for This Section Diagnostic Reports No Data Provided for This Section Consultation Notes No Data Provided for This Section Discharge Summaries No Data Provided for This Section History and Physicals No Data Provided for This Section Vital Signs Vital Sign Value Date Comments Source Systolic blood pressure 145 mm [Hg] 09/22/2018 [facility], Diastolic blood pressure 68 mm [Hg] 09/22/2018 [facility], Heart rate 71 /min 09/22/2018 [facility], Body weight 91.627 kg 09/22/2018 [facility], BMI 31.64 kg/m2 09/22/2018 [facility], Body height 170.2 cm 06/01/2018 [facility], Respiratory rate 20 /min 09/21/2017 [facility], Oxygen saturation in Arterial blood by Pulse oximetry 57 % 06/24/2015 [facility] , Encounters Location Location Details Encounter Type Encounter Number Reason For Visit Attending Provider ADM Date DC Date Status Source [facility] [id number] Ana Rosa MCCOY 04/28/2015 04/29/2015 Active [facility], [facility] Refill [id number] Jonny Mathew MD 07/05/2019 [facility], DELMER RIVERO ETT Active [facility], Procedures No Data Provided for This Section Plan of Care Plan of Care Date Source Health MaintenanceDue DateLast DoneComme ntsMEDICARE ANNUAL WELLNESS VISIT4DTAP/TDAP VACCINES (1 - Tdap)2PHYSICAL (COMPREHENSIVE) EXAM2SHINGLES RECOMBINANT VACCINE (1 of 2)01/31/1984PNEUMONIA (PPSV23) VACCINE (1 of 1 - PPSV23)1999INFLUENZA KACUMKW5309/15/2019 [facility], Social History No Data Provided for This Section Assessment and Plan No Data Provided for This Section Family History Value Date S ource Medical HistoryRelationNameCommentsCoron juan david Artery DiseaseBrotherCoronary Artery DiseaseFatherDementiaMotherDiabetesMotherStrokeMotherDementiaSisterDementiaSiste rRelationNameStatusCommentsBrotherFatherMotherSisterSister 09/14/2019 [facility], Advance Directives Order Name Results Value Date Source Advance Directives Advance Dir ectives Documents on FileTypeDate RecordedPatien t RepresentativeExplanationAdvance Directive/DPOA03/25/2015 10:39 AM 09/14/2019 [facility] , Functional Status No Data Provided for This Section
--- OUTSIDE RECORDS SUMMARY | 2019-09-14 20:49 | XMS REPORT | Encounter Summary ---
Author Author [facility] Organization [facility] Address Unknown Phone Unavailable Care Team Providers Care Daycare Director Name Role Phone Benjie Montano MD Unavailable Pia Macdonald DO Unavailable Benjie Montano MD PCP Jonny Mathew MD Unavailable Reason for Visit * Reason Comments Medication Refill Encounter Details Care Team Description Date Type Department Jonny Mathew MD [address] [address] 07/05/2019 Refill [facility] [place] [id number] [address] [address] Social History Date Tobacco Use Types Packs/Day Years Used Former Smoker Cigarettes, Pipe Smokeless Tobacco: Never Used Drinks/Week oz/Week Comments Alcohol Use 0 Standard drinks or equivalent 0.0 4-5 oz per week Yes Sex Assigned at Date Recorded Not on file Industry Job Start Date Occupation Not on file Not on file Not on file Travel End Travel History Travel Start No recent travel history available. documented as of this encounter Functional Status Date of Assessment Functional Status Response 09/22/2018 Does the patient have a hearing impairment: No 09/22/2018 Does the patient have a visual impairment: Yes 09/21/2017 Does the patient have impaired ambulation: No 09/21/2017 Does the patient have an activity of daily living No (ADL) impairment: 09/21/2017 Does the patient have an instrumental activity of No daily living (IADL) impairment: Date of Assessment Cognitive Status Response 09/21/2017 Does the patient have a cognitive impairment: Yes documented as of this encounter Plan of Treatment Not on filedocumented as of this encounter Visit Diagnoses Not on filedocumented in this encounter
--- OUTSIDE RECORDS SUMMARY | 2019-09-14 20:49 | XMS REPORT | Continuity of Care Document ---
Author Organization Unknown Address Unknown Phone Unavailable Allergies Active Description Code Type Severity Reaction Onset Reported/Identified Relationship to Patient Clinical Status Yes No Known Drug Allergies [id number] Drug Allergy Unknown N/A 01/03/2012 Medications There is no data. Problems Date Dx Coded Attending Type Code Diagnosis Diagnosed By 01/04/2012 Ot 574.60 ALYCE C GB/BILE DUCT W AC CHOLECYSTITIS W/O 05/02/2014 Ot 285.9 05/02/2014 Ot 287.5 05/02/2014 [...] 05/02/2014 Ot 272.4 05/02/2014 Ot 401.1 07/22/2015 CAPTAINRAVEN DAISY Ot E11.65 TYPE 2 DIABETES MELLITUS WITH HYPERGLYCE 07/22/2015 CAPTAINRAVEN COSMETOLOGIST Ot E78.5 HYPERLIPIDEMIA, UNSPECIFIED 08/11/2015 CAPTAINRAVEN COSMETOLOGIST Ot E11.65 TYPE 2 DIABETES MELLITUS WITH HYPERGLYCE 08/11/2015 CAPTRAVEN ESQUIVEL DAISY Ot E78.5 HYPERLIPIDEMIA, UNSPECIFIED 01/01/2016 GAN DO, GANGA [place] Ot D69.6 THROMBOCYTOPENIA, UNSPECIFIED 01/01/2016 ELVIA LOPEZ, GANGA [place] Ot E11.9 TYPE 2 DIABETES MELLITUS WITHOUT COMPLIC 01/20/2016 GAN , GANGA [place] Ot D69.6 THROMBOCYTOPENIA, UNSPECIFIED 01/20/2016 GAN DO, GANGA [place] Ot E11.9 TYPE 2 DIABETES MELLITUS WITHOUT COMPLIC 05/25/2016 GANGA GAN DO Ot R91.1 SOLITARY PULMONARY NODULE 05/26/2016 GANGA GAN DO Ot R91.1 SOLITARY PULMONARY NODULE 07/21/2016 GANGA GAN DO Ot R91.1 SOLITARY PULMONARY NODULE 07/22/2016 GANGA GAN DO Ot R91.1 SOLITARY PULMONARY NODULE 06/22/2017 ELA PARDO MD, Ot E11. 9 TYPE 2 DIABETES MELLITUS WITHOUT COMPLIC 06/22/2017 ELA PARDO MD, Ot F02. 80 DEMENTIA IN OTH DISEASES CLASSD ELSWHR W 06/22/2017 ELA PARDO MD, Ot F32. 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 06/22/2017 ELA PARDO MD, Ot I10 ESSENTIAL (PRIMARY) HYPERTENSION 06/22/2017 EDVIN MD, ELA M Ot T38.3X1A POISONING BY INSULIN AND ORAL HYPOGLYCEM 06/22/2017 EDVIN BARON, ELA Brandt Ot T43.221A POISN BY SELECTIVE SEROTONIN REUPTAKE IN 06/22/2017 EDVIN BARON, ELA Brandt Ot T44.5X1A POISONING BY PREDOM BETA-ADRENOCPT AGONI 06/22/2017 EDVIN BARON, ELA Brandt Ot T50.6X1A POISONING BY ANTIDOTES AND CHELATING AGE 0406/22/2017 EDVIN BARON, ELA Brandt Ot Z79.899 OTHER ALF (CURRENT) DRUG THERAPY 09/02/2017 GANGA GAN DO Ot E11.9 TYPE 2 DIABETES MELLITUS WITHOUT COMPLIC 09/22/2017 GANGA GAN DO Ot E11.9 TYPE 2 DIABETES MELLITUS WITHOUT COMPLIC 12/02/2017 LUZ MARIA PEREZ DO Ot E11.9 TYPE 2 DIABETES MELLITUS WITHOUT COMPLIC 12/02/2017 LUZ MARIA PEREZ DO Ot E78.00 PURE HYPERCHOLESTEROLEMIA, UNSPECIFIED 12/02/2017 LUZ MARIA PEREZ DO Ot F03.90 UNSPECIFIED DEMENTIA WITHOUT BEHAVIORAL 12/02/2017 LUZ MARIA PEREZ DO Ot F32.9 MAJOR DEPRESSIVE DISORDER, SINGLE EPISOD 12/02/2017 LUZ MARIA PEREZ DO Ot G47.30 SLEEP APNEA, UNSPECIFIED 12/02/2017 LUZ MARIA PEREZ DO Ot I10 ESSENTIAL (PRIMARY) HYPERTENSION 12/02/2017 LUZ MARIA PEREZ DO Ot I25.10 ATHSCL HEART DISEASE OF [place] CORONARY 12/02/2017 LUZ MARIA PEREZ DO Ot R11.2 NAUSEA WITH VOMITING, UNSPECIFIED 12/02/2017 LUZ MARIA PEREZ DO Ot R50.9 FEVER, UNSPECIFIED 12/02/2017 LUZ MARIA PEREZ DO Ot R51 HEADACHE 12/02/2017 LUZ MARIA PEREZ DO Ot Z79.82 ALF (CURRENT) USE OF ASPIRIN 12/02/2017 LUZ MARIA PEREZ DO Ot Z79.84 ALF (CURRENT) USE OF ORAL HYPOGLYC 12/02/2017 LUZ MARIA PEREZ DO Ot Z85.828 PERSONAL HISTORY OF OTHER MALIGNANT NEOP 12/02/2017 LUZ MARIA PEREZ DO Ot Z87.19 PERSONAL HISTORY OF OTHER DISEASES OF TH 12/02/2017 LUZ MARIA PEREZ DO Ot Z87.891 PERSONAL HISTORY OF NICOTINE DEPENDENCE 12/02/2017 ANA LUZ MARIA Stoney Ot Z90.49 ACQUIRED ABSENCE OF OTHER SPECIFIED PART 12/02/2017 ANA LUZ MARIA K Ot Z90.89 ACQUIRED ABSENCE OF OTHER ORGANS 12/02/2017 ANA LUZ MARIA Ot Z95.1 PRESENCE OF AORTOCORONARY BYPASS GRAFT 12/02/2017 ANA LUZ MARIA Ot Z96.0 PRESENCE OF UROGENITAL IMPLANTS 12/05/2017 ANA LUZ MARIA Ot E11.9 TYPE 2 DIABETES MELLITUS WITHOUT COMPLIC 12/05/2017 DREXEL LUZ MARIA Ot E78.00 PURE HYPERCHOLESTEROLEMIA, UNSPECIFIED 12/05/2017 AVOYELLES HOSPITALLUZ MARIA Ot F03.90 UNSPECIFIED DEMENTIA WITHOUT BEHAVIORAL 12/05/2017 [facility]ES HOSPITALLUZ MARIA Ot F32.9 MAJOR DEPRESSIVE DISORDER, SINGLE EPISOD 12/05/2017 DREXEL LUZ MARIA Ot G47.30 SLEEP APNEA, UNSPECIFIED 12/05/2017 ANA LUZ MARIA LOPEZ Ot I10 ESSENTIAL (PRIMARY) HYPERTENSION 12/05/2017 [facility]YELLES HOSPITALDIMPLEA Stoney Ot I25.10 ATHSCL HEART DISEASE OF [place] CORONARY 12/05/2017 ANA LUZ MARIA Ot R11.2 NAUSEA WITH VOMITING, UNSPECIFIED 12/05/2017 DREXEL LUZ MARIA Ot R50.9 FEVER, UNSPECIFIED 12/05/2017 DREXEL LUZ MARIA Ot R51 HEADACHE 12/05/2017 ANA LUZ MARIA Ot 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 12/05/2017 ANA LUZ MARIA LOPEZ Ot Z79.84 ALF (CURRENT) USE OF ORAL HYPOGLYC 12/05/2017 [facility] MARIA Ot Z85.828 PERSONAL HISTORY OF OTHER MALIGNANT NEOP 12/05/2017 ANA LUZ MARIA Ot Z87.19 PERSONAL HISTORY OF OTHER DISEASES OF TH 12/05/2017 ANA LUZ MARIA Ot Z87.891 PERSONAL HISTORY OF NICOTINE DEPENDENCE 12/05/2017 ANA LUZ MARIA Ot Z90.49 ACQUIRED ABSENCE OF OTHER SPECIFIED PART 12/05/2017 ANA LUZ MARIA Ot Z90.89 ACQUIRED ABSENCE OF OTHER ORGANS 12/05/2017 ANA DO, LUZ MARIA Lua Ot Z95.1 PRESENCE OF AORTOCORONARY BYPASS GRAFT 12/05/2017 ANA DO, LUZ MARIA Lua Ot Z96.0 PRESENCE OF UROGENITAL IMPLANTS 07/18/2018 GAN DO, GANGA [place] Ot E11.9 TYPE 2 DIABETES MELLITUS WITHOUT COMPLIC 07/18/2018 GAN DO, GANGA [place] Ot E78.2 MIXED HYPERLIPIDEMIA 07/18/2018 GAN DO, GANGA [place] Ot F03.90 UNSPECIFIED DEMENTIA WITHOUT BEHAVIORAL 07/18/2018 GAN DO, GANGA [place] Ot I10 ESSENTIAL (PRIMARY) HYPERTENSION 07/18/2018 GAN DO, GANGA [place] Ot E11.9 TYPE 2 DIABETES MELLITUS WITHOUT COMPLIC 07/18/2018 GAN DO, GANGA [place] Ot E78.2 MIXED HYPERLIPIDEMIA 07/18/2018 GAN DO, GANGA [place] Ot F03.90 UNSPECIFIED DEMENTIA WITHOUT BEHAVIORAL 07/18/2018 GAN DO, GANGA J Ot I10 ESSENTIAL (PRIMARY) HYPERTENSION 07/20/2018 GAN DO, GANGA [place] Ot E11.9 TYPE 2 DIABETES MELLITUS WITHOUT COMPLIC 07/20/2018 GAN DO, GANGA [place] Ot E78.2 MIXED HYPERLIPIDEMIA 07/20/2018 GAN DO, GANGA [place] Ot F03.90 UNSPECIFIED DEMENTIA WITHOUT BEHAVIORAL 07/20/2018 GAN DO, GANGA J Ot I10 ESSENTIAL (PRIMARY) HYPERTENSION 08/03/2018 GAN DO, GANGA [place] Ot E11.9 TYPE 2 DIABETES MELLITUS WITHOUT COMPLIC 08/03/2018 GAN DO, GANGA [place] Ot E78.2 MIXED HYPERLIPIDEMIA 08/03/2018 GAN DO, GANGA [place] Ot F03.90 UNSPECIFIED DEMENTIA WITHOUT BEHAVIORAL 08/03/2018 GAN DO, GANGA J Ot I10 ESSENTIAL (PRIMARY) HYPERTENSION 01/01/2019 EVIE MCKENNA Ot E11.9 TYPE 2 DIABETES MELLITUS WITHOUT COMPLIC 01/01/2019 EVIE MCKENNA Ot E78.00 PURE HYPERCHOLESTEROLEMIA, UNSPECIFIED 01/01/2019 EVIE MCKENNA Ot F02.80 DEMENTIA IN [facility] DISEASES CLASSD ELSWHR W 01/01/2019 EVIE MCKENNA Ot F32.9 MAJOR DEPRESSIVE DISORDER, SINGLE EPISOD 01/01/2019 EVIE MCKENNA Ot G30.9 ALZHEIMER'S DISEASE, UNSPECIFIED 01/01/2019 EVIE MCKENNA Ot G47.30 SLEEP APNEA, UNSPECIFIED 01/01/2019 BALAEVIE Palma Ot I10 ESSENTIAL (PRIMARY) HYPERTENSION 01/01/2019 BALAEVIE Ot I25.10 ATHSCL HEART DISEASE OF [place] CORONARY 01/01/2019 BALAEVIE Ot R40.2142 COMA SCALE, EYES OPEN, SPONTANEOUS, EMR 01/01/2019 BALAEVIE Palma Ot R40.2242 COMA SCALE, BEST VERBAL RESPONSE, CONFUS 01/01/2019 BALAEVIE Palma Ot R40.2362 COMA SCALE, BEST MOTOR RESPONSE, OBEYS C 01/01/2019 BALAEVIE Ot R53.1 WEAKNESS 01/01/2019 BALAEVIE Ot W19.XXXA UNSPECIFIED FALL, INITIAL ENCOUNTER 01/01/2019 BALAEVIE Palma Ot Y92.002 [facility] 01/01/2019 EVIE MCKENNA Ot Z79.82 ALF (CURRENT) USE OF ASPIRIN 01/01/2019 EVIE MCKENNA Ot Z85.828 PERSONAL HISTORY OF OTHER MALIGNANT NEOP 01/01/2019 BALAEVIE Palma Ot Z87.891 PERSONAL HISTORY OF NICOTINE DEPENDENCE 01/01/2019 BALAEVIE Palma Ot Z90.49 ACQUIRED ABSENCE OF OTHER SPECIFIED PART 01/01/2019 BALAEVIE Palma Ot Z95.1 PRESENCE OF AORTOCORONARY BYPASS GRAFT 01/01/2019 EVIE MCKENNA Ot Z99.89 DEPENDENCE ON OTHER ENABLING MACHINES AN 01/01/2019 Ot 250.00 JULIO CESAR B CORTNEY WO COMPL, TYPE II OR UNSPEC TY 01/01/2019 Ot 272.2 MIXE D HYPERLIPIDEMIA 01/01/2019 Ot 401.1 MURALI GN HYPERTENSION 01/01/2019 Ot V45.81 AOR TOCORONARY BYPASS 01/01/2019 AINRAVEN Ot E11.65 TYPE 2 DIABETES MELLITUS WITH HYPERGLYCE 01/01/2019 RAVEN SANDERS Ot E78.5 HYPERLIPIDEMIA, UNSPECIFIED 01/01/2019 GANGA GAN DO Ot D69.6 THROMBOCYTOPENIA, UNSPECIFIED 01/01/2019 GANGA GAN DO Ot E11.9 TYPE 2 DIABETES MELLITUS WITHOUT COMPLIC 01/01/2019 GANGA GAN DO Ot R91.1 SOLITARY PULMONARY NODULE 01/01/2019 GANGA GAN DO, Ot E11.9 TYPE 2 DIABETES MELLITUS WITHOUT COMPLIC 01/01/2019 GANGA GAN DO, Ot E11.9 TYPE 2 DIABETES MELLITUS WITHOUT COMPLIC 01/01/2019 GANGA GAN DO Ot E78.2 MIXED HYPERLIPIDEMIA 01/01/2019 GANGA GAN DO Ot F03.90 UNSPECIFIED DEMENTIA WITHOUT BEHAVIORAL 01/01/2019 GANGA GAN DO Ot I10 ESSENTIAL (PRIMARY) HYPERTENSION 01/05/2019 EVIE MCKENNA Ot E11.9 TYPE 2 DIABETES MELLITUS WITHOUT COMPLIC 01/05/2019 EVIE MCKENNA Ot E78.00 PURE HYPERCHOLESTEROLEMIA, UNSPECIFIED 01/05/2019 EVIE MCKENNA Ot F02.80 DEMENTIA IN OT DISEASES CLASSD ELSWHR W 01/05/2019 EVIE MCKENNA Ot F32.9 MAJOR DEPRESSIVE DISORDER, SINGLE EPISOD 01/05/2019 EVIE MCKENNA Ot G30.9 ALZHEIMER'S DISEASE, UNSPECIFIED 01/05/2019 EVIE MCKENNAP Ot G47.30 SLEEP APNEA, UNSPECIFIED 01/05/2019 EVIE MCKENNAP Ot I10 ESSENTIAL (PRIMARY) HYPERTENSION 01/05/2019 EVIE MCKENNAP Ot I25.10 ATHSCL HEART DISEASE OF [place] CORONARY 01/05/2019 EVIE MCKENNA Ot R40.2142 COMA SCALE, EYES OPEN, SPONTANEOUS, EMR 01/05/2019 EVIE MCKENNA Ot R40.2242 COMA SCALE, BEST VERBAL RESPONSE, CONFUS 01/05/2019 EVIE MCKENNA Ot R40.2362 COMA SCALE, BEST MOTOR RESPONSE, OBEYS C 01/05/2019 EVIE MCKENNAP Ot R53.1 WEAKNESS 01/05/2019 EVIE MCKENNA Ot W19.XXXA UNSPECIFIED FALL, INITIAL ENCOUNTER 01/05/2019 EVIE MCKENNA Ot Y92.002 BATHRM OF [facility] NON[facility] SNGL 01/05/2019 EVIE MCKENNAP Ot 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 01/05/2019 EVIE MCKENNA Ot Z85.828 PERSONAL HISTORY OF OTHER MALIGNANT NEOP 01/05/2019 EVIE MCKENNAP Ot Z87.891 PERSONAL HISTORY OF NICOTINE DEPENDENCE 01/05/2019 EVIE MCKENNAP Ot Z90.49 ACQUIRED ABSENCE OF OTHER SPECIFIED PART 01/05/2019 EVIE MCKENNA Ot Z95.1 PRESENCE OF AORTOCORONARY BYPASS GRAFT 01/05/2019 EVIE MCKENNA Ot Z99.89 DEPENDENCE ON OTHER ENABLING MACHINES AN 01/09/2019 Ot 250.00 JULIO CESAR B CORTNEY WO COMPL, TYPE II OR UNSPEC TY 01/09/2019 Ot 272.2 MIXE D HYPERLIPIDEMIA 01/09/2019 Ot 401.1 MURALI GN HYPERTENSION 01/09/2019 Ot V45.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 TOCORONARY BYPASS 01/09/2019 RAVEN SANDERS Ot E11.65 TYPE 2 DIABETES MELLITUS WITH HYPERGLYCE 01/09/2019 RAVEN SANDERS Ot E78.5 HYPERLIPIDEMIA, UNSPECIFIED 01/09/2019 GAN DOGANGA Ot D69.6 THROMBOCYTOPENIA, UNSPECIFIED 01/09/2019 GANGANGA KENNEY DO Ot E11.9 TYPE 2 DIABETES MELLITUS WITHOUT COMPLIC 01/09/2019 GANAG GAN DO Ot R91.1 SOLITARY PULMONARY NODULE 01/09/2019 GANGANGA KENNEY DO Ot E11.9 TYPE 2 DIABETES MELLITUS WITHOUT COMPLIC 01/09/2019 GANGA GAN DO Ot E11.9 TYPE 2 DIABETES MELLITUS WITHOUT COMPLIC 01/09/2019 GANGA GAN DO Ot E78.2 MIXED HYPERLIPIDEMIA 01/09/2019 GANGANGA KENNEY DO Ot F03.90 UNSPECIFIED DEMENTIA WITHOUT BEHAVIORAL 01/09/2019 GANGA GAN DO Ot I10 ESSENTIAL (PRIMARY) HYPERTENSION Procedures There is no data. Results Test Result Range Complete blood count (CBC) with automate d white blood cell (WBC) differential - 12/31/15 14:35 Blood leukocytes automated count (number/volume) 5.2 10*3/uL 4.3-11.0 Blood erythrocytes automated count (number/volume) 4.02 10*6/uL 4.35-5.85 Venous blood hemoglobin measurement (mass/volume) 13.1 g/dL 13.3-17.7 Blood hematocrit (volume fraction) 38 % 40-54 Automated erythrocyte mean corpuscular volume 94 [ foz_us] 80-99 Automated erythrocyte mean corpuscular h emoglobin (mass per erythrocyte) 33 pg 25-34 Automated erythrocyte mean corpuscular h emoglobin concentration measurement (mass/volume) 35 g/dL 32-36 Automated erythrocyte distribution width ratio 12. 4 % 10.0- 14.5 Automated blood platelet count (count/volume) 107 10*3/uL 130-400 Automated blood platelet mean volume measurement 9.1 [fo_us] 7.4-10.4 Automated blood neutrophils/100 leukocytes 70 % 42-75 Automated blood lymphocytes/100 leukocytes 22 % 12-44 Blood monocytes/100 leukocytes 7 % 0-12 Automated blood eosinophils/100 leukocytes 1 % 0-10 Automated blood basophils/100 leukocytes 0 % 0-10 Blood neutrophils automated count (number/volume) 3.6 10*3 1.8-7.8 Blood lymphocytes automated count (number/volume) 1.1 10*3 1.0-4.0 Blood monocytes automated count (number/volume) 0. 4 10*3 0.0-1.0 Automated eosinophil count 0.1 10*3/uL 0 .0-0.3 Automated blood basophil count (count/volume) 0.0 10*3/uL 0.0-0.1 Hemoglobin A1c - 12/31/15 14:35 Hemoglobin A1c 6.0 % 4.5-6.2 Complete blood count (CBC) with automate d white blood cell (WBC) differential - 06/21/17 17:20 Blood leukocytes automated count (number/volume) 6.0 10*3/uL 4.3-11.0 Blood erythrocytes automated count (number/volume) 4.41 10*6/uL 4.35-5.85 Venous blood hemoglobin measurement (mass/volume) 13.7 g/dL 13.3-17.7 Blood hematocrit (volume fraction) 40 % 40-54 Automated erythrocyte mean corpuscular volume 91 [ foz_us] 80-99 Automated erythrocyte mean corpuscular h emoglobin (mass per erythrocyte) 31 pg 25-34 Automated erythrocyte mean corpuscular h emoglobin concentration measurement (mass/volume) 34 g/dL 32-36 Automated erythrocyte distribution width ratio 13. 6 % 10.0- 14.5 Automated blood platelet count (count/volume) 119 10*3/uL [...] 10*3 1.0-4.0 Blood monocytes automated count (number/volume) 0. 6 10*3 0.0-1.0 Automated eosinophil count 0.1 10*3/uL 0 .0-0.3 Automated blood basophil count (count/volume) 0.0 10*3/uL 0.0-0.1 Comprehensive metabolic panel - 06/21/17 17:20 Serum or plasma sodium measurement (moles/volume) 137 mmol/L 135-145 Serum or plasma potassium measurement (moles/volume) 3.9 mmol/L 3.6-5.0 Serum or plasma chloride measurement (moles/volume) 106 mmol/L 98-107 Carbon dioxide 21 mmol/L 21-32 Serum or plasma anion gap determination (moles/volume) 10 mmol/L 5-14 Serum or plasma urea nitrogen measurement (mass/volume ) 26 mg/dL 7-18 Serum or plasma creatinine measurement (mass/volume) 1.42 mg/dL 0.60-1.30 Serum or plasma urea nitrogen/creatinine mass ratio 18 NRG Serum or plasma creatinine measurement w ith calculation of estimated glomerular filtration rate 48 NRG Serum or plasma glucose measurement (mass/volume) 179 mg/dL 70-105 Serum or plasma calcium measurement (mass/volume) 9.9 mg/dL 8.5-10.1 Serum or plasma total bilirubin measurement (mass/volu me) 0.9 mg/dL 0.1-1.0 Serum or plasma alkaline phosphatase rick surement (enzymatic activity/volume) 69 U/L 40-136 Serum or plasma aspartate aminotransfera se measurement (enzymatic activity/volume) 18 U/L 5-34 Serum or plasma alanine aminotransferase measurement (enzymatic activity/volume) 24 U/L 0-55 Serum or plasma protein measurement (mass/volume) 6.7 g/dL 6.4-8.2 Serum or plasma albumin measurement (mass/volume) 4.4 g/dL 3.2-4.5 Serum or plasma salicylates measurement (mass/volume) - 06/21/17 17:20 Serum or plasma salicylates measurement (mass/volume) < mg/dL 5.0-20.0 Serum or plasma acetaminophen measuremen t (mass/volume) - 06/21/17 17:20 Serum or plasma acetaminophen measurement (mass/volume ) < ug/mL 10-30 Capillary blood glucose measurement by g lucometer (mass/volume) - 06/21/17 20:07 Capillary blood glucose measurement by glucometer (mas s/volume) 165 mg/dL 70-110 Capillary blood glucose measurement by g lucometer (mass/volume) - 06/21/17 21:19 Capillary blood glucose measurement by glucometer (mas s/volume) 218 mg/dL 70-110 Capillary blood glucose measurement by g lucometer (mass/volume) - 06/21/17 23:07 Capillary blood glucose measurement by glucometer (mas s/volume) 206 mg/dL 70-110 Capillary blood glucose measurement by g lucometer (mass/volume) - 06/22/17 00:02 Capillary blood glucose measurement by glucometer (mas s/volume) 180 mg/dL 70-110 Capillary blood glucose measurement by g lucometer (mass/volume) - 06/22/17 01:43 Capillary blood glucose measurement by glucometer (mas s/volume) 155 mg/dL 70-110 Complete blood count (CBC) with automate d white blood cell (WBC) differential - 06/22/17 03:45 Blood leukocytes automated count (number/volume) 4.2 10*3/uL 4.3-11.0 Blood erythrocytes automated count (number/volume) 3.88 10*6/uL 4.35-5.85 Venous blood hemoglobin measurement (mass/volume) 12.0 g/dL 13.3-17.7 Blood hematocrit (volume fraction) 36 % 40-54 Automated erythrocyte mean corpuscular volume 92 [ foz_us] 80-99 Automated erythrocyte mean corpuscular h emoglobin (mass per erythrocyte) 31 pg 25-34 Automated erythrocyte mean corpuscular h emoglobin concentration measurement (mass/volume) 34 g/dL 32-36 Automated erythrocyte distribution width ratio 13. 7 % 10.0- 14.5 Automated blood platelet count (count/volume) 106 10*3/uL [...] 10*3 1.0-4.0 Blood monocytes automated count (number/volume) 0. 5 10*3 0.0-1.0 Automated eosinophil count 0.1 10*3/uL 0 .0-0.3 Automated blood basophil count (count/volume) 0.0 10*3/uL 0.0-0.1 Whole blood basic metabolic panel - 06/05 10/22 03:45 Serum or plasma sodium measurement (moles/volume) 139 mmol/L 135-145 Serum or plasma potassium measurement (moles/volume) 4.1 mmol/L 3.6-5.0 Serum or plasma chloride measurement (moles/volume) 111 mmol/L 98-107 Carbon dioxide 20 mmol/L 21-32 Serum or plasma anion gap determination (moles/volume) 8 mmol/L 5-14 Serum or plasma urea nitrogen measurement (mass/volume ) 23 mg/dL 7-18 Serum or plasma creatinine measurement (mass/volume) 1.21 mg/dL 0.60-1.30 Serum or plasma urea nitrogen/creatinine mass ratio 19 NRG Serum or plasma creatinine measurement w ith calculation of estimated glomerular filtration rate 57 NRG Serum or plasma glucose measurement (mass/volume) 171 mg/dL 70-105 Serum or plasma calcium measurement (mass/volume) 9.1 mg/dL 8.5-10.1 Capillary blood glucose measurement by g lucometer (mass/volume) - 06/22/17 05:42 Capillary blood glucose measurement by glucometer (mas s/volume) 148 mg/dL 70-110 Capillary blood glucose measurement by g lucometer (mass/volume) - 06/22/17 07:17 Capillary blood glucose measurement by glucometer (mas s/volume) 119 mg/dL 70-110 Capillary blood glucose measurement by g lucometer (mass/volume) - 06/22/17 08:23 Capillary blood glucose measurement by glucometer (mas s/volume) 122 mg/dL 70-110 Capillary blood glucose measurement by g lucometer (mass/volume) - 06/22/17 09:24 Capillary blood glucose measurement by glucometer (mas s/volume) 162 mg/dL 70-110 Capillary blood glucose measurement by g lucometer (mass/volume) - 06/22/17 10:46 Capillary blood glucose measurement by glucometer (mas s/volume) 132 mg/dL 70-110 Capillary blood glucose measurement by g lucometer (mass/volume) - 06/22/17 11:41 Capillary blood glucose measurement by glucometer (mas s/volume) 130 mg/dL 70-110 Capillary blood glucose measurement by g lucometer (mass/volume) - 06/22/17 12:43 Capillary blood glucose measurement by glucometer (mas s/volume) 110 mg/dL 70-110 Capillary blood glucose measurement by g lucometer (mass/volume) - 06/22/17 13:40 Capillary blood glucose measurement by glucometer (mas s/volume) 120 mg/dL 70-110 Capillary blood glucose measurement by g lucometer (mass/volume) - 06/22/17 14:46 Capillary blood glucose measurement by glucometer (mas s/volume) 160 mg/dL 70-110 Capillary blood glucose measurement by g lucometer (mass/volume) - 06/22/17 15:32 Capillary blood glucose measurement by glucometer (mas s/volume) 155 mg/dL 70-110 Capillary blood glucose measurement by g lucometer (mass/volume) - 06/22/17 16:24 Capillary blood glucose measurement by glucometer (mas s/volume) 173 mg/dL 70-110 Lipid 1996 panel - 09/01/17 12:28 Serum or plasma triglyceride measurement (mass/volume) 219 mg/dL <150 Serum or plasma cholesterol measurement (mass/volume) 151 mg/dL < 200 Serum or plasma cholesterol in HDL measurement (mass/v olume) 30 mg/dL 40-60 Cholesterol in LDL [mass/volume] in serum or plasma by direct assay 74 mg/dL 1-129 Serum or plasma cholesterol in VLDL measurement (mass/ volume) 44 mg/dL 5-40 Hemoglobin A1c - 09/01/17 12:28 Blood hemoglobin A1C measurement (mass/volume) 6.9 % 4.0-5.6 MEAN BLOOD GLUCOSE 151 % <=126 Complete blood count (CBC) with automate d white blood cell (WBC) differential - 12/02/17 19:08 Blood leukocytes automated count (number/volume) 6.2 10*3/uL 4.3-11.0 Blood erythrocytes automated count (number/volume) 3.90 10*6/uL 4.35-5.85 Venous blood hemoglobin measurement (mass/volume) 12.4 g/dL 13.3-17.7 Blood hematocrit (volume fraction) 36 % 40-54 Automated erythrocyte mean corpuscular volume 93 [ foz_us] 80-99 Automated erythrocyte mean corpuscular h emoglobin (mass per erythrocyte) 32 pg 25-34 Automated erythrocyte mean corpuscular h emoglobin concentration measurement (mass/volume) 34 g/dL 32-36 Automated erythrocyte distribution width ratio 13. 2 % 10.0- 14.5 Automated blood platelet count (count/volume) 102 10*3/uL 130-400 Automated blood platelet mean volume measurement 9.9 [foz_us] 7.4-10.4 Automated blood neutrophils/100 leukocytes 92 % 42-75 Automated blood lymphocytes/100 leukocytes 3 % 12-44 Blood monocytes/100 leukocytes 5 % 0-12 Automated blood eosinophils/100 leukocytes 0 % 0-10 Automated blood basophils/100 leukocytes 0 % 0-10 Blood neutrophils automated count (number/volume) 5.7 10*3 1.8-7.8 Blood lymphocytes automated count (number/volume) 0.2 10*3 1.0-4.0 Blood monocytes automated count (number/volume) 0. 3 10*3 0.0-1.0 Automated eosinophil count 0.0 10*3/uL 0 .0-0.3 Automated blood basophil count (count/volume) 0.0 10*3/uL 0.0-0.1 PT panel in platelet poor plasma by coag ulation assay - 12/02/17 19:08 Prothrombin time (PT) in platelet poor plasma by coagu lation assay 14.3 s 12.2-14.7 INR in platelet poor plasma or blood by coagulation as say 1.1 0.8-1.4 Activated partial thromboplastin time (a PTT) in platelet poor plasma bycoagulation assay - 12/02/17 19:08 Activated partial thromboplastin time (a PTT) in platelet poor plasma bycoagulation assay 26 s 24-35 Comprehensive metabolic panel - 12/02/17 19:08 Serum or plasma sodium measurement (moles/volume) 138 mmol/L 135-145 Serum or plasma potassium measurement (moles/volume) 3.9 mmol/L 3.6-5.0 Serum or plasma chloride measurement (moles/volume) 105 mmol/L 98-107 Carbon dioxide 23 mmol/L 21-32 Serum or plasma anion gap determination (moles/volume) 10 mmol/L 5-14 Serum or plasma urea nitrogen measurement (mass/volume ) 21 mg/dL 7-18 Serum or plasma creatinine measurement (mass/volume) 1.37 mg/dL 0.60-1.30 Serum or plasma urea nitrogen/creatinine mass ratio 15 NRG Serum or plasma creatinine measurement w ith calculation of estimated glomerular filtration rate 50 NRG Serum or plasma glucose measurement (mass/volume) 176 mg/dL 70-105 Serum or plasma calcium measurement (mass/volume) 9.1 mg/dL 8.5-10.1 Serum or plasma total bilirubin measurement (mass/volu me) 1.5 mg/dL 0.1-1.0 Serum or plasma alkaline phosphatase rick surement (enzymatic activity/volume) 66 U/L 40-136 Serum or plasma aspartate aminotransfera se measurement (enzymatic activity/volume) 73 U/L 5-34 Serum or plasma alanine aminotransferase measurement (enzymatic activity/volume) 77 U/L 0-55 Serum or plasma protein measurement (mass/volume) 6.4 g/dL 6.4-8.2 Serum or plasma albumin measurement (mass/volume) 4.1 g/dL 3.2-4.5 CALCIUM CORRECTED 9.0 mg/dL 8.5-10.1 Magnesium - 12/02/17 19:08 Magnesium 1.5 mg/dL 1.8-2.4 Serum or plasma amylase measurement (enz ymatic activity/volume) - 12/02/17 19:08 Serum or plasma amylase measurement (enzymatic activit y/volume) 93 U/L 25-125 Lipase - 12/02/17 19:08 Lipase 59 U/L 8-78 Blood lactic acid measurement (moles/vol ume) - 12/02/17 19:08 Blood lactic acid measurement (moles/volume) 2.05 mmol/L 0.50-2.00 Blood manual differential performed dete ction - 12/02/17 19:08 Blood monocytes/100 leukocytes 1 % NRG Manual blood segmented neutrophils/100 leukocytes 80 % NRG Blood band neutrophils/100 leukocytes 14 % NRG Manual blood lymphocytes/100 leukocytes 5 % NRG Manual eosinophils/100 leukocytes in nose 0 % NRG Manual blood basophils/100 leukocytes 0 % NRG Blood erythrocyte morphology finding identification NORMAL NRG Bacterial blood culture - 12/02/17 19:08 QUANTITY OF GROWTH Isolated NRG Bacterial blood culture [id number] NRG Bacterial blood culture - 12/02/17 19:35 Bacterial blood culture NG NRG Complete urinalysis with reflex to cultu re - 12/02/17 19:50 Urine color determination YELLOW NRG Urine clarity determination CLEAR NR G Urine pH measurement by test strip 7 5-9 Specific gravity of urine by test strip 1.010 1.016-1.022 Urine protein assay by test strip, semi-quantitative 1+ NEGATIVE Urine glucose detection by automated test strip NE GATIVE NEGATIVE Erythrocytes detection in urine sediment by light micr oscopy NEGATIVE NEGATIVE Urine ketones detection by automated test strip NE GATIVE NEGATIVE Urine nitrite detection by test strip NEGATIVE NEGATIVE Urine total bilirubin detection by test strip NEGA TIVE NEGATIVE Urine urobilinogen measurement by automated test strip (mass/volume) 1 mg/dL NORMAL Urine leukocyte esterase detection by dipstick 1+ NEGATIVE Automated urine sediment erythrocyte cou nt by microscopy (number/high power field) NONE NRG Automated urine sediment leukocyte count by microscopy (number/high power field) [HPF] NRG Bacteria detection in urine sediment by light microsco py NONE NRG Squamous epithelial cells detection in u rine sediment by light microscopy RARE NRG Crystals detection in urine sediment by light microsco py NONE NRG Casts detection in urine sediment by light microscopy NONE NRG Mucus detection in urine sediment by light microscopy TRACE NRG Complete urinalysis with reflex to culture NO NRG Influenza virus A and B antigen detectio n - 12/02/17 19:50 FLU RESULT NEGATIVE FOR INFLUENZA A AND B ANTIGENS BY IA NRG Serum or plasma lactate measurement (mol es/volume) - 12/02/17 21:10 Serum or plasma lactate measurement (moles/volume) 2.06 mmol/L 0.50-2.00 Hemoglobin A1c - 07/14/18 16:22 Blood hemoglobin A1C measurement (mass/volume) 7.4 % 4.0-5.6 MEAN BLOOD GLUCOSE 166 % <=126 Complete blood count (CBC) with automate d white blood cell (WBC) differential - 09/14/19 17:45 Blood leukocytes automated count (number/volume) 8.9 10*3/uL 4.3-11.0 Blood erythrocytes automated count (number/volume) 4.14 10*6/uL 4.35-5.85 Venous blood hemoglobin measurement (mass/volume) 12.5 g/dL 13.3-17.7 Blood hematocrit (volume fraction) 37 % 40-54 Automated erythrocyte mean corpuscular volume 89 [ foz_us] 80-99 Automated erythrocyte mean corpuscular h emoglobin (mass per erythrocyte) 30 pg 25-34 Automated erythrocyte mean corpuscular h emoglobin concentration measurement (mass/volume) 34 g/dL 32-36 Automated erythrocyte distribution width ratio 13. 4 % 10.0- 14.5 Automated blood platelet count (count/volume) 160 10*3/uL 130-400 Automated blood platelet mean volume measurement 9.5 [foz_us] 7.4-10.4 Automated blood neutrophils/100 leukocytes 79 % 42-75 Automated blood lymphocytes/100 leukocytes 13 % 12-44 Blood monocytes/100 leukocytes 6 % 0-12 Automated blood eosinophils/100 leukocytes 2 % 0-10 Automated blood basophils/100 leukocytes 0 % 0-10 Blood neutrophils automated count (number/volume) 7.0 10*3 1.8-7.8 Blood lymphocytes automated count (number/volume) 1.2 10*3 1.0-4.0 Blood monocytes automated count (number/volume) 0. 6 10*3 0.0-1.0 Automated eosinophil count 0.1 10*3/uL 0 .0-0.3 Automated blood basophil count (count/volume) 0.0 10*3/uL 0.0-0.1 Comprehensive metabolic panel - 09/14/19 17:45 Serum or plasma sodium measurement (moles/volume) 138 mmol/L 135-145 Serum or plasma potassium measurement (moles/volume) 3.9 mmol/L 3.6-5.0 Serum or plasma chloride measurement (moles/volume) 102 mmol/L 98-107 Carbon dioxide 24 mmol/L 21-32 Serum or plasma anion gap determination (moles/volume) 12 mmol/L 5-14 Serum or plasma urea nitrogen measurement (mass/volume ) 21 mg/dL 7-18 Serum or plasma creatinine measurement (mass/volume) 1.52 mg/dL 0.60-1.30 Serum or plasma urea nitrogen/creatinine mass ratio 14 NRG Serum or plasma creatinine measurement w ith calculation of estimated glomerular filtration rate 44 NRG Serum or plasma glucose measurement (mass/volume) 119 mg/dL 70-105 Serum or plasma calcium measurement (mass/volume) 9.8 mg/dL 8.5-10.1 Serum or plasma total bilirubin measurement (mass/volu me) 1.1 mg/dL 0.1-1.0 Serum or plasma alkaline phosphatase rick surement (enzymatic activity/volume) 238 U/L 40-136 Serum or plasma aspartate aminotransfera se measurement (enzymatic activity/volume) 64 U/L 5-34 Serum or plasma alanine aminotransferase measurement (enzymatic activity/volume) 148 U/L 0-55 Serum or plasma protein measurement (mass/volume) 6.8 g/dL 6.4-8.2 Serum or plasma albumin measurement (mass/volume) 4.1 g/dL 3.2-4.5 CALCIUM CORRECTED 9.7 mg/dL 8.5-10.1 PT panel in platelet poor plasma by coag ulation assay - 09/14/19 17:45 Prothrombin time (PT) in platelet poor plasma by coagu lation assay 13.8 s 12.2-14.7 INR in platelet poor plasma or blood by coagulation as say 1.0 0.8-1.4 PROCALCITONIN (PCT) - 09/14/19 17:45 PROCALCITONIN (PCT) 0.19 ng/mL <0.10 Complete urinalysis with reflex to cultu re - 09/14/19 18:51 Urine color determination YELLOW NRG Urine clarity determination CLEAR NR G Urine pH measurement by test strip 6.0 5-9 Specific gravity of urine by test strip 1.010 1.016-1.022 Urine protein assay by test strip, semi-quantitative NEGATIVE NEGATIVE Urine glucose detection by automated test strip NE GATIVE NEGATIVE Erythrocytes detection in urine sediment by light micr oscopy NEGATIVE NEGATIVE Urine ketones detection by automated test strip NE GATIVE NEGATIVE Urine nitrite detection by test strip NEGATIVE NEGATIVE Urine total bilirubin detection by test strip NEGA TIVE NEGATIVE Urine urobilinogen measurement by automated test strip (mass/volume) 2.0 mg/dL < = 1.0 Urine leukocyte esterase detection by dipstick NEG ATIVE NEGATIVE Automated urine sediment erythrocyte cou nt by microscopy (number/high power field) RARE NRG Automated urine sediment leukocyte count by microscopy (number/high power field) NONE NRG Bacteria detection in urine sediment by light microsco py NEGATIVE NRG Squamous epithelial cells detection in u rine sediment by light microscopy RARE NRG Crystals detection in urine sediment by light microsco py NONE NRG Casts detection in urine sediment by light microscopy NONE NRG Mucus detection in urine sediment by light microscopy NEGATIVE NRG Complete urinalysis with reflex to culture NO NRG Encounters ACCT No. Visit Date/Time Discharge Status Pt. Type Provider Facility Loc./Unit Complaint [id number] 09/14/2019 17:43:00 020 20:22:00 DIS Emergency MARCUS DIETRICH APRN [facility] ER WEAKNESS [id number] 01/01/2019 14:23:00 16:14:00 DIS Emergency EVIE MCKENNA COSMETOLOGIST [facility] ER FALL;WEAKNESS;VOMITING [id number] 07/14/2018 16:07:00 23:59:59 CLS Outpatient GANGA GAN DO [facility] LAB DIABETES MELLIT US [id number] 12/02/2017 19:05:00 018 22:26:00 DIS Emergency ANA DO, LUZ MARIA K Vi [facility] ER N/V [id number] 09/01/2017 12:14:00 018 23:59:59 CLS Outpatient GANGA GAN DO [facility] LAB E11.9 [id number] 06/21/2017 18:07:00 018 17:54:00 DIS Inpatient EDVIN BARON, ELA Brandt [facility] ICU ACCIDENTAL O.D. [id number] 05/25/2016 08:32:00 23:59:59 CLS Outpatient GANGA GAN DO [facility] RAD PULMONARY NODUL ES [id number] 12/31/2015 14:22:00 23:59:59 CLS Outpatient GANGA GAN DO [facility] LAB E11.9 THROMBOCY TOPENIA [id number] 07/19/2015 10:56:00 23:59:59 CLS Outpatient CRISTY ESQUIVELECCA Stoney IVLLA [facility] LAB HYPERLIPIDEMIA HYPERGLYCEMIA DIABETES MELLITUS II [id number] 07/02/2013 12:21:00 014 23:59:59 CLS Outpatient [id number] 04/10/2013 10:08:00 014 23:59:59 CLS Outpatient [id number] 11/02/2012 11:11:00 013 23:59:59 CLS Outpatient [id number] 06/30/2012 10:40:00 013 23:59:59 CLS Outpatient [id number] 05/02/2014 09:52:00 Document Registration [id number] 01/03/2012 14:03:00 Document Registration [id number] 12/27/2011 10:45:00 Document Registration [id number] 06/25/2011 09:07:00 Document Registration [id number] 06/25/2011 09:00:00 Document Registration [id number] 12/14/2010 11:25:00 Document Registration [id number] 12/07/2010 10:35:00 Document Registration [id number] 06/15/2010 11:11:00 Document Registration [id number] 06/11/2010 10:16:00 Document Registration [id number] 03/26/2010 13:35:00 Document Registration [id number] 12/11/2009 10:18:00 Document Registration [id number] 10/29/2009 15:00:00 Document Registration [id number] 09/17/2009 14:28:00 Document Registration [id number] 12/12/2008 09:48:00 Document Registration
--- OUTSIDE RECORDS SUMMARY | 2019-09-14 20:49 | XMS REPORT | Clinical Summary ---
Author Author [facility] Organization [facility] Address Unknown Phone Unavailable Care Team Providers Care Nuclear Medicine Technologist Name Role Phone Benjie Montano MD Unavailable Pia Macdonald DO Unavailable Benjie Montano MD PCP Jonny Mathew MD Unavailable Source Comments Some departments are not documenting in the electronic medical record. If you d o not see the information that you expected, contact Release of Information in [facility] [employer] Information Management department at [phone] for further assistan ce in locating additional records.[facility] Allergies No Known Allergies Medications End Date Status Medication Sig Dispensed Refills Start Date Active METOPROLOL SUCCINATE PO Take 12.5 mg 0 by mouth daily. Active omeprazole DR(+) Take 20 mg by 0 (PRILOSEC) 20 mg capsule mouth daily. Active atorvastatin (LIPITOR) 40 Take 40 mg by 0 mg tablet mouth daily. Active aspirin 81 mg chewable Take 81 mg by 0 tablet mouth daily. Active HYLAN G-F 20 (SYNVISC IX) by 0 Intra-articul ar route. Every 6 months Active FEXOFENADINE HCL (TOÑO Take 60 mg by 0 PO) mouth as Needed. Active cholecalciferol (VITAMIN Take 2,000 0 D-3) 1,000 units tablet Units by mouth daily. Active ALPRAZolam (XANAX) 0.5 mg Take 0.25 mg 0 tablet by mouth at bedtime as needed. Active glimepiride (AMARYL) 1 mg Take 1 mg by 0 tablet mouth daily with breakfast. 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 He had the Aricept increased to 10 mg d aily and has been tolerating it well. Family feels he is stable at this time. Discussed driving safety and medication management. L ast Assessment & Plan: Formatting of this note might be differ ent from the original. Since his last visit she has seen a dec line. He is much slower with everything he does. Tends to sleep more during the day. More apathy noted. We will increase the Zoloft to 75 mg. D iscussed the importance of staying active physically and cognitively. She is going to try to get him on an exercise bike every day if possible He has osteoarthritis in both his knees so much physical activity is hard for h im to do. He has had some increase in inappropria te sexual comments and increase in masturbation, so far only in the home. We discussed ways to set limits on where he does this. She is having some caregiver stress tahira dodson because her adult children question her ability to care for him in the home. She was a bit tearful during our discussion. She would like to hear more about the [facility]/ support program which I think would be helpful for them as they live in a smaller community with few resources for support. She was giv en some information to share with her family on long distance caregiving. Plan: Continue the Aricept 10 mg once a day. Take with food. Continue the Namenda 10 mg twice a day. Take with food. Increase the Zoloft to 75 mg daily. Rfedi e one and one half of a tablet once a day. Reassure and redirect as needed. Stay active mentally, physically and so cially. Try to be more active during the daytime. We will make a referral to [employer]S ocial Worker to help with some caregiver and home safety and technolog y tips. Return to the Memory Clinic Date & Time 09/20/2018 12:30 PM Provider Jonny Mathew MD Clinic [facility] Dept. [facility] Cognitive changes 04/15/2015 Last Assessment & Plan: Since his last visit his feels he has more difficulty with calculations, bill paying, disorientati on and navigation. After the last visit he decided to start the donepezil 5 mg. He has done well without GI side effects but does not feel it is "h elping" his memory. We discussed the goal in using this medication. I am reluctant to increase it at this time due to pulse rate today of 52. I e ncouraged him to discuss increasing it with Cardiology when they see him ne xt month. He also had a poor reaction to the increase in the previou s Exelon Patch. Will keep the donepezil at 5 mg for now. He was encouraged to keep active physic ally and mentally and follow closely with his Psychiatrist for manag ement of depression. Plan: Recommend you exercise more frequ ently. Check with Cardiology or PCP for a hansel mmended exercise program. Stay active mentally, physically, socia lly. Follow with Psychiatry for aggressive t reatment of depression. Continue the Lexapro as prescribed. Continue to use the donepezil (Aricept) 5 mg daily. Take with food in the AM Check out the NIH or Alzheimer's Preven tion Clinic at [facility] and Alzheimer's Association website for additional helpful information. We will have our Research Study Coordin ators contact you regarding possible participation in studies. Return to the Memory Care Clinic: September 15, 2016 1:[address] Mathew. Contact our office for any questions or concerns. Encounters Care Team Description Date Type Specialty Jonny Mathew MD 07/05/2019 Refill Neurology from Last 3 Months Family History Medical History Relation Name Comments Coronary Artery Disease Brother Coronary Artery Disease Father Dementia Mother Diabetes Mother Stroke Mother Dementia Sister Dementia Sister Relation Name Status Comments Brother Father Mother Sister Sister Social History Date Tobacco Use Types Packs/Day Years Used Former Smoker Cigarettes, Pipe Smokeless Tobacco: Never Used Tobacco Cessation: Counseling Given: No Drinks/Week oz/Week Comments Alcohol Use 0 Standard drinks or equivalent 0.0 4-5 oz per week Yes Sex Assigned at Date Recorded Not on file Industry Job Start Date Occupation Not on file Not on file Not on file Travel End Travel History Travel Start No recent travel history available. Last Filed Vital Signs Reading Time Taken Comments Vital Sign 145/68 09/22/2018 12:44 PM CDT Blood Pressure 71 09/22/2018 12:44 PM CDT Pulse - - Temperature 20 09/21/2017 1:35 PM CDT Respiratory Rate 57% 06/24/2015 1:25 PM CDT Oxygen Saturation - - Inhaled Oxygen Concentration 91.6 kg (202 lb) 09/22/2018 12:44 PM CDT Weight 170.2 cm (5' 7") 06/01/2018 3:11 PM CDT Height 31.64 06/01/2018 3:11 PM CDT Body Mass Index Plan of Treatment Health Maintenance Due Date Last Done Comments MEDICARE ANNUAL WELLNESS 1935 VISIT DTAP/TDAP VACCINES (1 - 01/31/1952 Tdap) PHYSICAL (COMPREHENSIVE) 01/31/1952 EXAM SHINGLES RECOMBINANT 01/31/1984 VACCINE (1 of 2) PNEUMONIA (PPSV23) 1999 VACCINE (1 of 1 - PPSV23) INFLUENZA VACCINE 12/06/2019 12/24/2004 Results Not on filefrom Last 3 Months Insurance Type Payer Benefit Subscriber ID Effective Phone Address Plan / Dates Group Medicare MEDICARE MEDICARE xxxxxxxxxxx 1999- PART A AND Present B Medicare BCBS [place] BCBS xxxxxxxxxxxx 2015-P SUPPLEMENT resent [phone] 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
== END 2019-09-14 20:22 | disposition home or self-care (01) ==
LOC: EDUNIT# 17:41 → ER 17:43
DX: Z00.00 Encounter for general adult medical examination without abnormal findings (principal); R53.1 Weakness; I25.10 Atherosclerotic heart disease of native coronary artery without angina pectoris; I10 Essential (primary) hypertension; E11.9 Type 2 diabetes mellitus without complications; E78.00 Pure hypercholesterolemia, unspecified; G30.9 Alzheimer's disease, unspecified; F02.80 Dementia in other diseases classified elsewhere, unspecified severity, without behavioral disturbance, psychotic disturbance, mood disturbance, and anxiety; F32.9 Major depressive disorder, single episode, unspecified; Z79.84 Long term (current) use of oral hypoglycemic drugs; Z87.891 Personal history of nicotine dependence; Z79.82 Long term (current) use of aspirin; Z95.1 Presence of aortocoronary bypass graft; Z85.828 Personal history of other malignant neoplasm of skin
CPT/HCPCS: 36415; 70450; 71045; 72170; 80053; 81000; 84145; 85025; 85610

== ENCOUNTER 2019-09-27 14:14 | Emergency (ER) | payer MEDICARE ==
[~2019-09-27] VITALS: Ht 172 cm; Wt 90.7 kg
[2019-09-27] MEDS ORDERED: LIDOCAINE/EPI 2% 1:100,00 (XYLOCAINE) 20 ML VIAL ONE (14:43)
[2019-09-27] MEDS ORDERED: TETANUS,DIPTH,PERTUSS P/F (BOOSTRIX) 0.5 ML VIAL IM ONE (14:45)
[2019-09-27] MEDS ORDERED: LIDOCAINE/EPI 1%-1:200,000 (XYLOCAINE) 30 ML VIAL INJ ONE (14:45)
--- NOTE | 2019-09-27 15:01 | ED Head Injury ---
General Chief Complaint: Trauma-Non Activation Stated Complaint: LACERATION Nursing Triage Note: PT PRESENTS TO ED ACCOMPANIED BY FOR FALL OUT OF BED THIS AFTERNOON WITH A LACERATION TO THE BACK OF HIS HEAD. Source: patient Exam Limitations: no limitations History of Present Illness Date Seen by Provider: Sep 27, 2019 Time Seen by Provider: 14:58 Initial Comments To ER by with reports of a fall out of bed this afternoon with a laceration to the back of his head. No loss of consciousness. He is alert but has some baseline Alzheimer's. Location Injury Occurred: HOME Occurred: just prior to arrival Severity: mild Location: parietal Method of Injury: fell Loss of Consciousness: no loss of consciousness Associated Systoms: Denies Symptoms Allergies and Home Medications Allergies Coded Allergies: No Known Drug Allergies (Unverified , 01/03/12) Home Medications Acetaminophen 500 Mg Tablet, 500-1,000 MG PO Q6H PRN for PAIN-MILD, (Reported) Alprazolam 0.25 Mg Tablet, 0.25 MG PO DAILY PRN for ANXIETY, (Reported) Aspirin 81 Mg Tablet.dr, 81 MG PO HS, (Reported) Atorvastatin Calcium 40 Mg Tablet, 40 MG PO HS, (Reported) Cefdinir 300 Mg Capsule, 300 MG PO BID Prescribed by: LUZ MARIA PEREZ on 12/02/172210 Cholecalciferol (Vitamin D3) 2,000 Unit Capsule, 2,000 UNIT PO DAILY, (Reported) Donepezil HCl 10 Mg Tablet, 10 MG PO DAILY, (Reported) Fexofenadine HCl 60 Mg Tablet, 60 MG PO DAILY PRN for ALLERGIES, (Reported) Glimepiride 1 Mg Tablet, 1 MG PO DAILY, (Reported) Losartan Potassium 50 Mg Tablet, 50 MG PO DAILY, (Reported) Omeprazole 20 Mg Capsule.dr, 20 MG PO DAILY, (Reported) Ondansetron 4 Mg Tab.rapdis, 4 MG PO Q4H Prescribed by: LUZ MARIA PEREZ on 12/02/172210 Sertraline HCl 50 Mg Tablet, 50 MG PO DAILY, (Reported) [Knee Injections] , INJ EVERY 6 MONTHS, (Reported) LEFT KNEE Patient Home Medication List Home Medication List Reviewed: Yes Review of Systems Review of Systems Constitutional: see HPI Eyes: No Symptoms Reported Ears, Nose, Mouth, Throat: no symptoms reported Respiratory: no symptoms reported Cardiovascular: no symptoms reported Genitourinary: no symptoms reported Musculoskeletal: no symptoms reported Skin: see HPI Psychiatric/Neurological: No Symptoms Reported Endocrine: No Symptoms Reported Hematologic/Lymphatic: No Symptoms Reported Past Llohliz-Cgnngo-Polxbk Hx Patient Social History Alcohol Use: Rarely Uses Recreational Drug Use: No Smoking Status: Former Smoker Type Used: Cigarettes, Pipe Former Smoker, Quit: July 28, 1977 2nd Hand Smoke Exposure: No Recent Foreign Travel: No Contact w/Someone Who Travel: No Recent Infectious Disease Expo: No Recent Hopitalizations: Yes Physical Abuse: No Sexual Abuse: No Mistreated: No Fear: No Immunizations Up To Date Date of Pneumonia Vaccine: Dec 05, 2008 Date of Influenza Vaccine: Dec 28, 2011 Past Medical History Surgeries: Yes Abdominal, Appendectomy, Bowel Surgery, Cardiac, CABG, Gallbladder Respiratory: Yes Sleep Apnea Currently Using CPAP: Yes Currently Using BIPAP: No Cardiac: Yes (CABG) Coronary Artery Disease, High Cholesterol, Hypertension Neurological: Yes Dementia Genitourinary: Yes (URETERAL STENT) Gastrointestinal: Yes (BOWEL RESECTION FOR RUPTURED DIVERTICULUM; S/P DOMINIQUE AND APPY) Diverticulosis, Gall Bladder Disease Musculoskeletal: Yes (knee pain --knees injected 04-02-10 07-06-10 01-13-11) Arthritis Endocrine: Yes Diabetes, Non-Insulin dep HEENT: No Cancer: Yes Skin Did You Recieve Any Treatments: Yes What Type of Treatment Did You: Surgical Intervention Psychosocial: Yes (DEMENTIA) Depression Integumentary: Yes (SKIN CANCER) Blood Disorders: No Family Medical History No Pertinent Family Hx Physical Exam Vital Signs Vital Signs - First Documented 09/27/19 14:39 Temp 36.8 Pulse 75 Resp 20 B/P (MAP) 133/66 (88) Pulse Ox 98 Capillary Refill : Less Than 3 Seconds Height, Weight, BMI Height: 5'9.00" Weight: 180lbs. 2.0oz. 81.416235oj; 30.00 BMI Method:Stated General Appearance: WD/WN, no apparent distress HEENT: PERRL/EOMI, normal ENT inspection, TMs normal, other (there is a 3.5 cm laceration with depth to the subcutaneous tissue to the midline posterior parietal scalp) Neck: non-tender, full range of motion Respiratory: no respiratory distress, no accessory muscle use Gastrointestinal: normal bowel sounds, non tender Extremities: normal range of motion, non-tender Psychiatric: alert Crainal Nerves: normal hearing, normal speech, PERRL Motor/Sensory: no motor deficit Skin: normal color, warm/dry Amarilis Coma Score Best Eye Response: (4) Open Spontaneously Best Verbal Response: (4) Confused Conversation Best Motor Response: (6) Obeys Commands [place] Total: 14 Images 1 - Procedures/Interventions Wound Location: Scalp Wound Length (cm): 3.5 Wound's Depth, Shape: linear, sub Q Wound Explored: clean Irrigated w/ Saline (ccs): 100 Anesthesia: Lidocaine w/ Epi Staple Repair: Stapler 35W Number of Sutures: 10 ( carlos) Layer Closure?: 1 Number Deep Layer Sutures: 0 Progress/Results/Core Measures Results/Orders My Orders Orders - MARCUS DIETRICH APRN Ct Head/Cervical Spine Wo (09/27/19 14:31) Lidocaine/Epi 1% 1:200,00 (Xylocaine/Epi (09/27/19 14:45) Dipht,Pertuss(Acell),Tet Adult (Boostrix (09/27/19 14:45) Lidocaine/Epi 2% 1:100,000 (Xylocaine/Ep (09/27/19 14:43) Medications Given in ED Current Medications Medications Dose Ordered Sig/Ta Route Start Time Stop Time Status Last Admin Dose Admin Diphtheria/ Tetanus/Acell Pertussis 0.5 ml ONCE ONCE IM 09/27/19 14:45 09/27/19 14:46 DC 09/27/19 14:48 0.5 ML Vital Signs/I&O 09/27/19 14:39 Temp 36.8 Pulse 75 Resp 20 B/P (MAP) 133/66 (88) Pulse Ox 98 Blood Pressure Mean: 88 Departure Impression Primary Impression: Scalp laceration Qualified Codes: S01.01XA - Laceration without foreign body of scalp, initial encounter Disposition: HOME, SELF-CARE Condition: Stable Departure-Patient Inst. Referrals: GANGA GAN DO (PCP/Family) Primary Care Physician Patient Instructions: Laceration Repair With [place] (DC) Add. Discharge Instructions: Return to ER to have the staple removed in about 7 days. Return to ER before then promptly if he noticed any worsening confusion, severe headache, nausea or vomiting or anything else that concerns U. All discharge instructions reviewed with patient and/or family. Voiced understanding. MARCUS DIETRICH APRN 23, 2020 15:01
--- NOTE | 2019-09-27 15:21 | Diagnostic Imaging Report ---
PROCEDURE: CT head and CT cervical spine without contrast. TECHNIQUE: Multiple contiguous axial images were obtained through the brain and cervical spine without the use of intravenous contrast. Sagittal and coronal reformations through the cervical spine were then performed. Auto Exposure Controls were utilized during the CT exam to meet ALARA standards for radiation dose reduction. INDICATION: Fall with scalp laceration. COMPARISON: Correlation is made with the head CT from 09/14/2019. FINDINGS: CT HEAD: The ventricles and sulci remain prominent. No sulcal effacement or midline shift is identified. No acute intra-axial or extra-axial hemorrhage is detected. The cisterns are patent. The visualized paranasal sinuses are clear. IMPRESSION: Stable senescent changes when compared to the exam from 09/14/2019. No acute intracranial process is detected. CT CERVICAL SPINE: Minimal anterolisthesis of C4 on C5 is noted with retrolisthesis of C5 on C6. There is multilevel degenerative disc disease with variable disc space narrowing and marginal spurring, greatest at the C5-6 and C6-7 levels. The prevertebral tissues are within normal limits. No fractures are identified. The odontoid is intact. IMPRESSION: Cervical spondylosis. No acute bony abnormality is detected. Dictated by: Dictated on workstation # [id number]
[2019-09-27 15:30] VITALS: BP 110/54
== END 2019-09-27 15:30 | disposition home or self-care (01) ==
LOC: EDUNIT# 14:14 → ER 14:21
DX: S01.01XA Laceration without foreign body of scalp, initial encounter (principal); I10 Essential (primary) hypertension; E11.9 Type 2 diabetes mellitus without complications; E78.00 Pure hypercholesterolemia, unspecified; I25.10 Atherosclerotic heart disease of native coronary artery without angina pectoris; G30.9 Alzheimer's disease, unspecified; F02.80 Dementia in other diseases classified elsewhere, unspecified severity, without behavioral disturbance, psychotic disturbance, mood disturbance, and anxiety; F32.9 Major depressive disorder, single episode, unspecified; Z23 Encounter for immunization; Z85.828 Personal history of other malignant neoplasm of skin; Z79.82 Long term (current) use of aspirin; Z87.891 Personal history of nicotine dependence; W06.XXXA Fall from bed, initial encounter
CPT/HCPCS: 12013; 70450; 72125; 90715